=== PATIENT | male | born 1945 | race Caucasian/White ===

== ENCOUNTER → 2019-12-02 13:24 | Outpatient (BNVA) | payer SELFPAY | PROVIDERS: PCP Internal Medicine; Visit Provider Internal Medicine | DX: Z86.718 Personal history of other venous thrombosis and embolism (principal); Z51.81 Encounter for therapeutic drug level monitoring; Z79.01 Long term (current) use of anticoagulants | CPT/HCPCS: 85610 ==

== ENCOUNTER → 2019-12-08 13:46 | Outpatient (BNVA) | payer BC, SELFPAY | PROVIDERS: PCP Internal Medicine; Visit Provider Surgery Vascular Surgery | DX: Z76.89 Persons encountering health services in other specified circumstances (principal) ==

== ENCOUNTER 2019-12-16 12:51 | Outpatient (REF) | payer BC, SELFPAY ==
--- NOTE | 2019-12-16 12:53 | US_ITS ---
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 TECHNIQUE: Color flow triplex imaging and compression Doppler was performed to evaluate both the deep and the superficial systems bilaterally. To evaluate the superficial system, the examination was performed in the upright position. Color-flow Doppler ultrasound and compression ultrasound were utilized. In addition, maneuvers were utilized to demonstrate reflux. FINDINGS: 1. DEEP VENOUS ULTRASOUND OF THE RIGHT LOWER EXTREMITY: Respiratory variation, normal compression and augmented flow are noted in the right common femoral vein as well as the right popliteal vein and there is no evidence of deep venous thrombosis at these locations. Within the common femoral vein there is reflux of approximately 0.5 seconds. There is reflux in the popliteal vein of the 0.8 seconds. There is no evidence of a popliteal fossa cyst or popliteal artery aneurysm. 2. SUPERFICIAL ULTRASOUND WITH DOPPLER OF RIGHT LOWER EXTREMITY: The right great saphenous vein at the saphenofemoral junction measures 11 mm, at the mid thigh 6 mm, fopcy-oxb-wblz 6 mm, ecpne-ehc-qlws 6 mm, at mid calf 6 mm and at the ankle measures 5 mm. There is reflux demonstrated in the below the knee greater saphenous vein of 2.7 seconds and not above or below this region. The right small saphenous vein measures 6 mm and shows no reflux only within the distal calf of approximately 2 seconds. There are varicose veins within the right distal thigh, knee, and mid calf measuring 4 mm in diameter without reflux within them. 3. DEEP VENOUS ULTRASOUND OF THE LEFT LOWER EXTREMITY: Respiratory variation, normal compression and augmented flow are noted in the left common femoral vein as well as the left popliteal vein and there is no evidence of deep venous thrombosis at these locations. There is no evidence of reflux in the deep system in either the common femoral vein or the popliteal vein. . There is no evidence of a popliteal fossa cyst or popliteal artery aneurysm. 4. SUPERFICIAL ULTRASOUND WITH DOPPLER OF LEFT LOWER EXTREMITY: Left great saphenous vein at the saphenofemoral junction measures 8 mm, at the mid thigh 5 mm, csvbh-ksp-upmd 4 mm, hkoen-jav-nqmz 4 mm, at mid calf 3 mm and at the ankle measures 3 mm. The only region of greater saphenous vein reflux is seen above the knee of 0.9 seconds. The left small saphenous vein measures 5 mm and shows reflux only at the mid calf 0.9 seconds There is a left proximal thigh perforating vein measuring 3 mm in diameter without reflux within it. Varicosities without reflux was seen about the left calf and mid thigh. US/US venous duplex LE BI IMPRESSION: No evidence of acute deep venous thrombosis of the right or left lower extremities. No venous insufficiency of the left deep venous system. Reflux within the right deep venous system of approximately half second at the common femoral vein and approximately 2.8 seconds in the popliteal vein. Right greater saphenous vein venous insufficiency only seen at the ebwcp-evi-wktl segment of 2.7 seconds without any evidence of reflux at the saphenofemoral junction. Left greater saphenous vein venous insufficiency only seen about the knee of approximately 0.9 seconds without reflux identified at the saphenofemoral junction.
== END 2019-12-16 12:52 | disposition home or self-care (01) ==
LOC: HO.US 12:51
PROVIDERS: PCP Internal Medicine; Visit Provider Surgery Vascular Surgery
DX: I83.11 Varicose veins of right lower extremity with inflammation (principal)
CPT/HCPCS: 93970

== ENCOUNTER → 2019-12-30 13:20 | Outpatient (BNVA) | payer BC, SELFPAY | PROVIDERS: PCP Internal Medicine; Visit Provider Internal Medicine | DX: Z86.718 Personal history of other venous thrombosis and embolism (principal); Z51.81 Encounter for therapeutic drug level monitoring; Z79.01 Long term (current) use of anticoagulants | CPT/HCPCS: 85610; 99211 ==

== ENCOUNTER → 2020-01-19 13:22 | Outpatient (BNVA) | payer BC, SELFPAY | PROVIDERS: PCP Internal Medicine; Referring Provider Internal Medicine; Visit Provider Internal Medicine | DX: Z76.89 Persons encountering health services in other specified circumstances (principal) ==

== ENCOUNTER → 2020-01-27 13:24 | Outpatient (BNVA) | payer BC, SELFPAY | PROVIDERS: PCP Internal Medicine; Visit Provider Internal Medicine | DX: I48.19 Other persistent atrial fibrillation (principal); Z86.718 Personal history of other venous thrombosis and embolism; Z51.81 Encounter for therapeutic drug level monitoring; Z79.01 Long term (current) use of anticoagulants | CPT/HCPCS: 85610; 99211 ==

== ENCOUNTER → 2020-02-02 13:38 | Outpatient (BNVA) | payer BC, SELFPAY | PROVIDERS: PCP Internal Medicine; Visit Provider Surgery Vascular Surgery | DX: Z76.89 Persons encountering health services in other specified circumstances (principal) ==

== ENCOUNTER → 2020-02-16 13:23 | Outpatient (BNVA) | payer BC, SELFPAY | PROVIDERS: PCP Internal Medicine; Visit Provider Internal Medicine | DX: Z86.718 Personal history of other venous thrombosis and embolism (principal); Z51.81 Encounter for therapeutic drug level monitoring; Z79.01 Long term (current) use of anticoagulants | CPT/HCPCS: 85610; 99211 ==

== ENCOUNTER → 2020-03-10 13:17 | Outpatient (BNVA) | payer BC, SELFPAY | PROVIDERS: PCP Internal Medicine; Visit Provider Internal Medicine | DX: I48.19 Other persistent atrial fibrillation (principal); Z86.718 Personal history of other venous thrombosis and embolism; Z51.81 Encounter for therapeutic drug level monitoring; Z79.01 Long term (current) use of anticoagulants | CPT/HCPCS: 85610; 99211 ==

== ENCOUNTER → 2020-03-24 13:19 | Outpatient (BNVA) | payer BC, SELFPAY | PROVIDERS: PCP Internal Medicine; Visit Provider Internal Medicine | DX: I48.19 Other persistent atrial fibrillation (principal); Z86.718 Personal history of other venous thrombosis and embolism; Z51.81 Encounter for therapeutic drug level monitoring; Z79.01 Long term (current) use of anticoagulants | CPT/HCPCS: 85610; 99211 ==

== ENCOUNTER → 2020-04-07 13:16 | Outpatient (BNVA) | payer BC, SELFPAY | PROVIDERS: PCP Internal Medicine; Visit Provider Internal Medicine | DX: I48.19 Other persistent atrial fibrillation (principal); Z86.73 Personal history of transient ischemic attack (TIA), and cerebral infarction without residual deficits; Z51.81 Encounter for therapeutic drug level monitoring; Z79.01 Long term (current) use of anticoagulants | CPT/HCPCS: 85610; 99211 ==

== ENCOUNTER → 2020-04-15 13:44 | Outpatient (REF) | payer BC, SELFPAY ==
--- NOTE | 2020-04-15 14:00 | CA_ITS ---
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 The visually estimated ejection fraction is between 60-65%. - No obvious valvular pathology seen on this study. - There is mild dilatation of the ascending aorta measuring 3.80 cm and mild dilatation of the aortic arch measuring 3.70 cm. Small plaque is seen in the sino tubular ridge. Findings Left Ventricle Normal left ventricular cavity size. There is normal left ventricular wall thickness. The left ventricular systolic function is normal. The visually estimated ejection fraction is between 60-65%. There is no evidence of regional wall motion abnormalities. Diastolic function is normal for age. Right Ventricle Normal right ventricular cavity size and systolic function. Atria Both atria are normal in size. Aortic Valve There is a normal trileaflet aortic valve. There is mild calcification of the aortic valve. There is no aortic valve stenosis. There is no aortic valve regurgitation. Mitral Valve The mitral valve appears normal. There is trace mitral valve regurgitation. There is no mitral valve stenosis. Pulmonic Valve The pulmonic valve was not well visualized. Tricuspid Valve There is trace tricuspid valve regurgitation. The pulmonary artery systolic pressure is normal. Great Vessels There is mild dilatation of the ascending aorta measuring 3.80 cm and mild dilatation of the aortic arch measuring 3.70 cm. Small plaque is seen in the sino tubular ridge. Venous The inferior vena cava was not well visualized. Pericardium/Pleural There is no evidence of pericardial effusion. Prior Study Comparison No significant change compared to prior study dated: 04/08/2019. Recommendations, Care & Conclusions No obvious valvular pathology seen on this study. Measurements M-Mode Liner Measurements Normals - Women/Men AOV Cusps: 2.40 1.5-2.6 cm/m2 2D Linear Measurements IVSd: 0.98 0.6-0.9/0.6-1.0 cm LVIDd: 4.36 3.9-5.3/4.2-5.9 cm LVIDd Index: 1.90 2.4-3.2/2.2-3.1 cm/m2 LVIDs: 2.33 2.0-3.6 cm LVPWd: 0.96 0.7-1.1 cm Ao Root: 3.80 2.1-3.5 cm LA Diam: 3.90 2.7-3.8/3.0-4.0 cm LAIDs Index: 1.70 1.5-2.3 cm/m2 LV Mass: 173.98 67-162/88-224 g LV Mass Index: 75.97 43-95/49-115 g/m2 LVOT Diam: 2.40 3.0+(-)1.3 cm 2D Systolic Function EF 4C: 68.90 >55% EF 2C: 56.90 >55% EF BiP: 61.90 >55% Mitral Valve MV Pk E: 0.69 MV PK A: 0.78 MV Decel Time: 155.00 E/A: 0.90 E'Lateral: 10.60 E'Medial: 8.38 E/E' Med: 8.30 E/E' Lat: 6.50 PHT: 45.00 MVA PHT: 4.89 Decel Glenn: 4.47 Aortic Valve AoV Pk Hernandez: 1.34 AoV Pk Grad: 7.00 LVOT LVOT Pk Hernandez: 0.80 LVOT Mn Hernandez: 0.60 LVOT VTI: 0.17 LVOT Pk Grad: 3.00 LVOT Mn Grad: 2.00 LVOT Diam: 2.40 LVOT Area: 4.52 Diastolic Function MV Pk E: 0.69 MV Pk A: 0.78 E/A: 0.90 E'Medial: 8.38 E/E' Med: 8.30 E' Laterial: 10.60 E/E' Lat: 6.50 Tricuspid Valve TR Pk Hernandez: 2.57 TR Pk Grad: 26.00 RA Press: 8.00 RVSP: 34.00 Great Vessels Aorta Ao Root-2D: 3.80 2.0-3.7 cm Ao Asc: 3.80 2.1-3.4 cm Ao Arch: 3.70 Pulmonary Valve PV Pk Hernandez: 1.03 Peak PV Grad: 4.00 Updated in Other Vendor System with Status of Final Art Narvaez MD electronically signed on 04/17/2020 9:23:07 AM with status of Final
== END ==
LOC: HO.CARD 13:44
PROVIDERS: Visit Provider Internal Medicine Cardiovascular Disease
DX: I48.0 Paroxysmal atrial fibrillation (principal); I45.10 Unspecified right bundle-branch block; I36.1 Nonrheumatic tricuspid (valve) insufficiency; R06.02 Shortness of breath
CPT/HCPCS: 93306

== ENCOUNTER → 2020-04-21 12:55 | Outpatient (BNVA) | payer BC, SELFPAY | PROVIDERS: PCP Internal Medicine; Visit Provider Internal Medicine Cardiovascular Disease | DX: I48.0 Paroxysmal atrial fibrillation (principal); R06.02 Shortness of breath; Z79.899 Other long term (current) drug therapy | CPT/HCPCS: 93005 ==

== ENCOUNTER → 2020-05-05 13:04 | Outpatient (BNVA) | payer BC, SELFPAY | PROVIDERS: PCP Internal Medicine; Visit Provider Internal Medicine | DX: I48.19 Other persistent atrial fibrillation (principal); Z86.718 Personal history of other venous thrombosis and embolism; Z51.81 Encounter for therapeutic drug level monitoring; Z79.01 Long term (current) use of anticoagulants | CPT/HCPCS: 85610; 99211 ==

== ENCOUNTER → 2020-05-26 13:15 | Outpatient (BNVA) | payer BC, SELFPAY | PROVIDERS: PCP Internal Medicine; Visit Provider Internal Medicine ==

== ENCOUNTER → 2020-06-02 13:02 | Outpatient (BNVA) | payer BC, SELFPAY | PROVIDERS: PCP Internal Medicine; Visit Provider Internal Medicine | DX: I48.19 Other persistent atrial fibrillation (principal); Z86.718 Personal history of other venous thrombosis and embolism; Z79.01 Long term (current) use of anticoagulants; Z51.81 Encounter for therapeutic drug level monitoring | CPT/HCPCS: 85610; 99211 ==

== ENCOUNTER → 2020-06-16 13:02 | Outpatient (BNVA) | payer BC, SELFPAY | PROVIDERS: PCP Internal Medicine; Visit Provider Internal Medicine | DX: I48.19 Other persistent atrial fibrillation (principal); I82.401 Acute embolism and thrombosis of unspecified deep veins of right lower extremity; Z79.01 Long term (current) use of anticoagulants; Z51.81 Encounter for therapeutic drug level monitoring | CPT/HCPCS: 85610; 99211 ==

== ENCOUNTER → 2020-07-07 13:02 | Outpatient (BNVA) | payer BC, SELFPAY | PROVIDERS: PCP Internal Medicine; Visit Provider Internal Medicine | DX: I48.19 Other persistent atrial fibrillation (principal); Z86.718 Personal history of other venous thrombosis and embolism; Z51.81 Encounter for therapeutic drug level monitoring; Z79.01 Long term (current) use of anticoagulants | CPT/HCPCS: 85610; 99211 ==

== ENCOUNTER → 2020-08-04 13:18 | Outpatient (BNVA) | payer BC, SELFPAY | PROVIDERS: PCP Internal Medicine; Visit Provider Internal Medicine | DX: I48.19 Other persistent atrial fibrillation (principal); Z86.718 Personal history of other venous thrombosis and embolism; Z51.81 Encounter for therapeutic drug level monitoring; Z79.01 Long term (current) use of anticoagulants | CPT/HCPCS: 85610; 99211 ==

== ENCOUNTER → 2020-09-01 13:23 | Outpatient (BNVA) | payer BC, SELFPAY | PROVIDERS: PCP Internal Medicine; Visit Provider Internal Medicine | DX: I48.0 Paroxysmal atrial fibrillation (principal); Z86.718 Personal history of other venous thrombosis and embolism; Z51.81 Encounter for therapeutic drug level monitoring; Z79.01 Long term (current) use of anticoagulants | CPT/HCPCS: 85610; 99211 ==

== ENCOUNTER → 2020-09-07 13:31 | Outpatient (BNVA) | payer BC, SELFPAY | PROVIDERS: PCP Internal Medicine; Visit Provider Internal Medicine | DX: I48.19 Other persistent atrial fibrillation (principal); Z86.718 Personal history of other venous thrombosis and embolism; Z51.81 Encounter for therapeutic drug level monitoring; Z79.01 Long term (current) use of anticoagulants | CPT/HCPCS: 85610; 99211 ==

== ENCOUNTER → 2020-09-29 13:21 | Outpatient (BNVA) | payer BC, SELFPAY | PROVIDERS: PCP Internal Medicine; Visit Provider Internal Medicine | DX: I48.0 Paroxysmal atrial fibrillation (principal); Z86.718 Personal history of other venous thrombosis and embolism; Z51.81 Encounter for therapeutic drug level monitoring; Z79.01 Long term (current) use of anticoagulants | CPT/HCPCS: 85610; 99211 ==

== ENCOUNTER → 2020-10-13 13:18 | Outpatient (BNVA) | payer BC, SELFPAY | PROVIDERS: PCP Internal Medicine; Visit Provider Internal Medicine | DX: I48.19 Other persistent atrial fibrillation (principal); Z86.718 Personal history of other venous thrombosis and embolism; Z51.81 Encounter for therapeutic drug level monitoring; Z79.01 Long term (current) use of anticoagulants | CPT/HCPCS: 85610; 99211 ==

== ENCOUNTER → 2020-10-27 11:06 | Outpatient (BNVA) | payer BC, SELFPAY | PROVIDERS: PCP Internal Medicine; Visit Provider Internal Medicine Cardiovascular Disease | DX: I48.0 Paroxysmal atrial fibrillation (principal); R06.02 Shortness of breath; I45.10 Unspecified right bundle-branch block; G47.33 Obstructive sleep apnea (adult) (pediatric); J44.9 Chronic obstructive pulmonary disease, unspecified; E66.9 Obesity, unspecified; Z68.35 Body mass index [BMI] 35.0-35.9, adult; Z99.89 Dependence on other enabling machines and devices; Z79.02 Long term (current) use of antithrombotics/antiplatelets; Z79.899 Other long term (current) drug therapy | CPT/HCPCS: 93005 ==

== ENCOUNTER → 2020-11-10 13:17 | Outpatient (BNVA) | payer BC, SELFPAY | PROVIDERS: PCP Internal Medicine; Visit Provider Internal Medicine | DX: I48.19 Other persistent atrial fibrillation (principal); Z86.718 Personal history of other venous thrombosis and embolism; Z51.81 Encounter for therapeutic drug level monitoring; Z79.01 Long term (current) use of anticoagulants | CPT/HCPCS: 85610; 99211 ==

== ENCOUNTER → 2020-11-22 13:45 | Outpatient (BNVA) | payer BC, SELFPAY | PROVIDERS: PCP Internal Medicine; Visit Provider Internal Medicine ==

== ENCOUNTER → 2020-12-08 13:04 | Outpatient (BNVA) | payer BC, SELFPAY | PROVIDERS: PCP Internal Medicine; Visit Provider Internal Medicine | DX: I48.19 Other persistent atrial fibrillation (principal); Z86.718 Personal history of other venous thrombosis and embolism; Z51.81 Encounter for therapeutic drug level monitoring; Z79.01 Long term (current) use of anticoagulants | CPT/HCPCS: 85610; 99211 ==

== ENCOUNTER → 2020-12-15 13:57 | Outpatient (BNVA) | payer BC, SELFPAY | PROVIDERS: PCP Internal Medicine; Visit Provider Internal Medicine | DX: I48.19 Other persistent atrial fibrillation (principal); Z86.718 Personal history of other venous thrombosis and embolism; Z51.81 Encounter for therapeutic drug level monitoring; Z79.01 Long term (current) use of anticoagulants | CPT/HCPCS: 85610; 99211 ==

== ENCOUNTER → 2020-12-29 13:31 | Outpatient (BNVA) | payer BC, SELFPAY | PROVIDERS: PCP Internal Medicine; Visit Provider Internal Medicine | DX: I48.19 Other persistent atrial fibrillation (principal); Z86.718 Personal history of other venous thrombosis and embolism; Z51.81 Encounter for therapeutic drug level monitoring; Z79.01 Long term (current) use of anticoagulants | CPT/HCPCS: 85610; 99211 ==

== ENCOUNTER → 2021-01-12 13:31 | Outpatient (BNVA) | payer BC, SELFPAY | PROVIDERS: PCP Internal Medicine; Visit Provider Internal Medicine | DX: I48.19 Other persistent atrial fibrillation (principal); Z86.718 Personal history of other venous thrombosis and embolism; Z51.81 Encounter for therapeutic drug level monitoring; Z79.01 Long term (current) use of anticoagulants | CPT/HCPCS: 85610; 99211 ==

== ENCOUNTER → 2021-01-26 13:46 | Outpatient (BNVA) | payer BC, SELFPAY | PROVIDERS: PCP Internal Medicine; Visit Provider Internal Medicine | DX: I48.19 Other persistent atrial fibrillation (principal); Z86.718 Personal history of other venous thrombosis and embolism; Z51.81 Encounter for therapeutic drug level monitoring; Z79.01 Long term (current) use of anticoagulants | CPT/HCPCS: 85610; 99211 ==

== ENCOUNTER → 2021-02-16 13:16 | Outpatient (BNVA) | payer BC, SELFPAY | PROVIDERS: PCP Internal Medicine; Visit Provider Internal Medicine | DX: I48.19 Other persistent atrial fibrillation (principal); Z86.718 Personal history of other venous thrombosis and embolism; Z51.81 Encounter for therapeutic drug level monitoring; Z79.01 Long term (current) use of anticoagulants | CPT/HCPCS: 85610; 99211 ==

== ENCOUNTER → 2021-02-24 15:49 | Outpatient (BNVA) | payer BC, SELFPAY | PROVIDERS: PCP Internal Medicine; Visit Provider Internal Medicine | DX: I48.19 Other persistent atrial fibrillation (principal); Z86.718 Personal history of other venous thrombosis and embolism; Z51.81 Encounter for therapeutic drug level monitoring; Z79.01 Long term (current) use of anticoagulants | CPT/HCPCS: Q3014 ==

== ENCOUNTER → 2021-03-03 13:24 | Outpatient (BNVA) | payer BC, SELFPAY | PROVIDERS: PCP Internal Medicine; Visit Provider Internal Medicine | DX: I48.19 Other persistent atrial fibrillation (principal); Z86.718 Personal history of other venous thrombosis and embolism; Z51.81 Encounter for therapeutic drug level monitoring; Z79.01 Long term (current) use of anticoagulants | CPT/HCPCS: 85610; 99211 ==

== ENCOUNTER → 2021-03-08 13:35 | Outpatient (BNVA) | payer BC, SELFPAY | PROVIDERS: PCP Internal Medicine; Visit Provider Internal Medicine | DX: I48.19 Other persistent atrial fibrillation (principal); Z86.718 Personal history of other venous thrombosis and embolism; Z51.81 Encounter for therapeutic drug level monitoring; Z79.01 Long term (current) use of anticoagulants | CPT/HCPCS: 85610 ==

== ENCOUNTER → 2021-03-14 13:27 | Outpatient (BNVA) | payer BC, SELFPAY | PROVIDERS: PCP Internal Medicine; Visit Provider Internal Medicine | DX: I48.19 Other persistent atrial fibrillation (principal); Z86.718 Personal history of other venous thrombosis and embolism; Z51.81 Encounter for therapeutic drug level monitoring; Z79.01 Long term (current) use of anticoagulants | CPT/HCPCS: 85610; 99211 ==

== ENCOUNTER → 2021-03-28 13:07 | Outpatient (BNVA) | payer BC, SELFPAY | PROVIDERS: PCP Internal Medicine; Visit Provider Internal Medicine | DX: I48.19 Other persistent atrial fibrillation (principal); Z86.718 Personal history of other venous thrombosis and embolism; Z51.81 Encounter for therapeutic drug level monitoring; Z79.01 Long term (current) use of anticoagulants | CPT/HCPCS: 85610; 99211 ==

== ENCOUNTER → 2021-04-11 13:20 | Outpatient (BNVA) | payer BC, SELFPAY | PROVIDERS: PCP Internal Medicine; Visit Provider Internal Medicine | DX: I48.19 Other persistent atrial fibrillation (principal); Z86.718 Personal history of other venous thrombosis and embolism; Z51.81 Encounter for therapeutic drug level monitoring; Z79.01 Long term (current) use of anticoagulants | CPT/HCPCS: 85610; 99211 ==

== ENCOUNTER → 2021-04-25 13:12 | Outpatient (BNVA) | payer BC, SELFPAY | PROVIDERS: PCP Internal Medicine; Visit Provider Internal Medicine | DX: I48.19 Other persistent atrial fibrillation (principal); Z86.718 Personal history of other venous thrombosis and embolism; Z51.81 Encounter for therapeutic drug level monitoring; Z79.01 Long term (current) use of anticoagulants | CPT/HCPCS: 85610; 99211 ==

== ENCOUNTER → 2021-05-18 13:03 | Outpatient (BNVA) | payer BC, SELFPAY | PROVIDERS: PCP Internal Medicine; Visit Provider Internal Medicine | DX: I48.19 Other persistent atrial fibrillation (principal); Z86.718 Personal history of other venous thrombosis and embolism; Z51.81 Encounter for therapeutic drug level monitoring; Z79.01 Long term (current) use of anticoagulants | CPT/HCPCS: 85610; 99211 ==

== ENCOUNTER → 2021-05-19 09:15 | Outpatient (REF) | payer BC, SELFPAY ==
--- NOTE | 2021-05-19 09:19 | CA_ITS ---
Transthoracic Echocardiogram Patient (Last, First, Middle): Jay Gonzales, Gender: Male Date of : 1945 Age: 75 Procedure Date: 05/19/2021 Procedure Type: Transthoracic Echocardiogram Location: OP Height: 175.26 cm Weight: 117.94 kg BSA: 2.31 m2 Heart Rate: bpm BP: 112 / 68 mmHg Senior Product Development Scientist: Referring MD: Justin Nava MD Coagulant Dipper: Justin Nava MD Symptoms: I48.0 - Paroxysmal atrial fibrillation Study Quality: Fair ECG Rhythm: Sinus Conclusions: - 1. Technically limited study 2. Normal LV systolic function with impaired relaxation filling pattern 3. Moderately dilated right-sided chambers with preserved RV systolic function 4. Normal cardiac valvular Doppler 5. Normal RV systolic pressure 6. Mildly dilated ascending aorta Findings Left Ventricle Normal left ventricular size, thickness, and systolic function. The visually estimated ejection fraction is between 55-60%. Regional wall motion abnormalities can not be excluded due to suboptimal endocardial definition. Spectral Doppler is indicative of a normal filling pattern. Right Ventricle Moderately increased right ventricular cavity size. There is normal right ventricular systolic function. Atria The left atrium is mildly dilated. Interatrial shunt cannot be excluded. The right atrium is moderately dilated. Aortic Valve The aortic valve was not well visualized. There is no aortic valve stenosis. There is no aortic valve regurgitation. Mitral Valve Likely normal mitral valve structure and function. There is trace mitral valve regurgitation. There is no mitral valve stenosis. Pulmonic Valve The pulmonic valve was not well visualized. Tricuspid Valve The tricuspid valve was not well visualized. There is mild tricuspid valve regurgitation. The right ventricular systolic pressure is normal. The right ventricular systolic pressure is 26 mmHg. There is no evidence of pulmonary hypertension. Great Vessels The pulmonary artery was not well visualized. There is mild dilatation of the ascending aorta measuring 4.10 cm. Venous The inferior vena cava is normal in size. Pericardium/Pleural The pericardium was not well visualized. Prior Study Comparison No significant change compared to prior study. Measurements 2D Linear Measurements IVSd: 1.00 0.6-0.9/0.6-1.0 cm LVIDd: 5.25 3.9-5.3/4.2-5.9 cm LVIDd Index: 2.27 2.4-3.2/2.2-3.1 cm/m2 LVIDs: 3.65 2.0-3.6 cm LVPWd: 1.03 0.7-1.1 cm LA Diam: 3.50 2.7-3.8/3.0-4.0 cm LAIDs Index: 1.52 1.5-2.3 cm/m2 LV Mass: 250.77 67-162/88-224 g LV Mass Index: 108.56 43-95/49-115 g/m2 LVOT Diam: 2.40 3.0+(-)1.3 cm Mitral Valve MV Pk E: 0.64 MV PK A: 0.59 MV Decel Time: 154.00 E/A: 1.10 PHT: 45.00 MVA PHT: 4.89 Decel [place]: 4.14 Aortic Valve AoV Pk Hernandez: 1.19 AoV Mn Hernandez: 0.93 AoV VTI: 0.26 AoV Pk Grad: 6.00 Aov Mn Grad: 4.00 AGUSTIN Cont.VTI: 3.81 LVOT LVOT Pk Hernandez: 1.04 LVOT Mn Hernandez: 0.70 LVOT VTI: 0.22 LVOT Pk Grad: 4.00 LVOT Mn Grad: 2.00 LVOT Diam: 2.40 LVOT Area: 4.52 Diastolic Function MV Pk E: 0.64 MV Pk A: 0.59 E/A: 1.10 Right Ventricle TAPSE (mm): 18.00 TVS' Hernandez: 13.00 Tricuspid Valve TR Pk Hernandez: 2.38 TR Pk Grad: 23.00 RA Press: 3.00 RVSP: 26.00 Great Vessels Aorta Ao Asc: 4.10 2.1-3.4 cm Updated in Other Vendor System with Status of Final Justin Nava MD electronically signed on 05/20/2021 1:10:28 PM with status of Final
== END ==
LOC: HO.CARD 09:15
PROVIDERS: Visit Provider Internal Medicine Cardiovascular Disease
DX: I48.0 Paroxysmal atrial fibrillation (principal)
CPT/HCPCS: 93306

== ENCOUNTER → 2021-05-23 13:27 | Outpatient (BNVA) | payer BC, SELFPAY | PROVIDERS: PCP Internal Medicine; Visit Provider Internal Medicine | DX: Z13.89 Encounter for screening for other disorder (principal) ==

== ENCOUNTER → 2021-06-12 16:48 | Outpatient (BNVA) | payer BC, SELFPAY | PROVIDERS: PCP Internal Medicine; Visit Provider Internal Medicine | DX: I48.19 Other persistent atrial fibrillation (principal); I82.401 Acute embolism and thrombosis of unspecified deep veins of right lower extremity; Z79.01 Long term (current) use of anticoagulants; Z51.81 Encounter for therapeutic drug level monitoring | CPT/HCPCS: Q3014 ==

== ENCOUNTER 2021-06-15 08:32 | Inpatient (IN) | payer MEDICARE, BC, SELFPAY ==
[2021-06-15] VITALS (10 sets, daily range): BP systolic 131–149; BP diastolic 61–87; PULSE 78–102; RESP 13–25; TEMP 36.7–37.1; O2SAT 89–97; BMI 36.9
--- NOTE | ~2021-06-15 | XR_ITS ---
EXAMINATION: XR CHEST CLINICAL INFORMATION: Dyspnea COMPARISON: 05/01/2018 TECHNIQUE: Frontal view of the chest was obtained. FINDINGS: Median sternotomy wires appear intact. Cardiac leads overlie the chest. Elevated left hemidiaphragm is chronic. No consolidation, edema, or effusion. No pneumothorax. The cardiomediastinal silhouette is unchanged. XR/XR chest 1V IMPRESSION: No acute pulmonary finding. Chronic elevation of the left hemidiaphragm.
--- NOTE | 2021-06-15 08:40 | ECG_ITS ---
Test Reason : DYSPNEA Blood Pressure : / mmHG Vent. Rate : 084 BPM Atrial Rate : 084 BPM P-R Int : 158 ms QRS Dur : 148 ms QT Int : 402 ms P-R-T Axes : 109 001 016 degrees QTc Int : 475 ms Normal sinus rhythm Right bundle branch block Abnormal ECG When compared with ECG of 14-MAR-2018 08:47, No significant changes seen Referred By: Lo Aburto Electronically Signed By:Real Fang
--- NOTE | 2021-06-15 08:50 | ED_ITS ---
HPI - SOB/Dyspnea General Chief Complaint: Dyspnea Stated Complaint: DIFF BREATHING Time Seen by Provider: 06/15/21 08:40 Source: patient Mode of arrival: ambulatory Limitations: no limitations History of Present Illness HPI Narrative: 06/08 dx with bronchitis started on cefpodoxime and prednisone - not helping feel s like he is getting worse MD elicited complaint: shortness of breath and cough Pertinent past history: COPD and pneumonia Onset (ago): day(s) (7) Context: recent illness Timing: progressively worsening Severity: moderate Exacerbating factors: exertion and coughing Relieving factors: rest Known history of: COPD and recurrent pneumonia Associated symptoms: fever, cough, wheezing and sputum production Treatment prior to arrival: bronchodilator and other (steroids, antibiotics) Related Data Home Medications Medication Instructions Recorded Confirmed albuterol sulfate 90 mcg/actuation 2 puff INHALATION QID 12/08/19 05/18/21 aerosol inhaler atorvastatin 20 mg tablet 20 mg PO DAILY 12/08/19 05/18/21 diltiazem HCl 120 mg 120 mg PO DAILY 12/08/19 05/18/21 capsule,extended release 24 hr docusate sodium 100 mg capsule 100 mg PO BID 12/08/19 05/18/21 sennosides 8.6 mg capsule (senna) 8.6 mg PO BEDTIME 12/08/19 05/18/21 furosemide 40 mg tablet 40 mg PO BID tab 02/02/20 05/18/21 flecainide 50 mg tablet 50 mg PO Q12H tab 10/27/20 05/18/21 potassium chloride 10 mEq 10 meq PO DAILY 12/15/20 05/18/21 tablet,extended release Previous Rx's Medication Instructions Recorded warfarin 5 mg tablet 5 mg PO DAILY #90 tab 12/02/19 albuterol sulfate 2.5 mg (3 mL) INHALATION Q4-8H PRN 06/12/21 #180 ml fluticasone furoate 200 1 inh INHALATION DAILY #60 ea 06/15/21 mcg-vilanterol 25 mcg/dose inhalation powder (Breo Ellipta) Allergies Allergy/AdvReac Type Severity Reaction Status Date / Time amoxicillin [From Augmentin] AdvReac Intermediate Nausea and Verified 05/23/21 13:58 Vomiting, dizziness clavulanic acid AdvReac Intermediate Nausea and Verified 05/23/21 13:58 [From Augmentin] Vomiting, dizziness Review of Systems Review of Systems: Constitutional : No Fever, pos Chills ENT/Mouth : No sore throat, No Rhinorrhea, No Swallowing Difficulty Eyes: No Eye Pain, No Swelling, No Redness Cardiovascular : No Chest Pain, positive SOB, No Orthopnea, no Edema Respiratory : pos Cough, pos Sputum, pos Wheezing, positive dyspnea Gastrointestinal : No Nausea, No Vomiting, No Diarrhea, No abdominal Pain, No Hematochezia, No Melena Genitourinary : No Dysuria, No Urinary Frequency, No Hematuria Musculoskeletal : No joint pain, No Myalgias Skin : No Skin Lesions, No rash Neuro : No Weakness, No Numbness, No Dizziness, No Headache Psych : No Anxiety/Panic, No Depression Heme/Lymph: No Bruising, No Lymphadenopathy Endocrine : No Polyuria, No Polydipsia All other systems reviewed and are negative [facility] Past Medical History Attestation statement: The following information was validated with the patient. Medical History COPD (chronic obstructive pulmonary disease) Obesity (BMI 35.0-39.9 without comorbidity) DEREK on CPAP Paroxysmal atrial fibrillation Surgical History History of appendectomy Family History Family History Father No problems noted. Mother No problems noted. Sister No problems noted. Sister No problems noted. Son No problems noted. Daughter No problems noted. Social History Social History (Updated 06/15/21 @ 08:51 by Lo Aburto DO) Patient Tobacco Use Status: Former Tobacco user Physical Exam Vital Signs: Vital Signs: Last Vital Signs Temp 98.8 F 06/15/21 08:40 Pulse 78 06/15/21 09:39 Resp 20 06/15/21 09:39 BP 136/76 06/15/21 09:39 Pulse Ox 95 06/15/21 10:10 BMI result Body Mass Index 36.9 Appearance: Alert. Oriented X3. Mild acute distress. Eyes: Pupils equal, round and reactive to light. ENT: Pharynx normal. Neck: Normal inspection. Neck supple. CVS: Normal heart rate and rhythm. Pulses normal. Respiratory: Mild respiratory distress tachypnea and retractions. Breath sounds coarse and diminished, very fine rales in bases, wheezes noted in upper zones bilaterally Abdomen: Soft and nontender. Skin: Skin warm and dry. Normal skin color. Normal skin turgor. Extremities: RLE chronic 1- 2+ pitting edema, hyperpigmented skin changes in RLE Neuro: Oriented X 3. No motor deficit. No sensory deficit. 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 At this time will need labs, IV steroids, CXR, cultures, lactic acid, flu and COVID swab. 5mg albuterol neb empiric IV antibiotics given outpatient failure sputum production. Dispo per results and clinical improvement Lab Data Result diagrams: 06/15/21 09:09 06/15/21 08:50 Labs: Lab Results 06/15/21 06/15/21 06/15/21 Range/Units 08:40 08:40 08:50 WBC (4.8-10.8) X10*3/uL RBC (4.60-5.80) X10*6/uL Hgb (14.0-18.0) g/dl Hct (42.0-52.0) % MCV (80.0-98.0) fL MCH (27.0-33.0) pg MCHC (31.0-36.0) g/dl RDW (11.0-16.0) % Plt Count (160-400) X10*3/uL MPV (9.4-12.4) fL Immature Gran % (Auto) (0.0-0.4) % Neut % (Auto) (45-73) % Lymph % (Auto) (20-40) % [place] % (Auto) (2-11) % Eos % (Auto) (0-4) % Baso % (Auto) (0-2) % Lymph # (Auto) (1.2-4.9) X10*3/uL [place] # (Auto) (0.1-1.2) X10*3/uL Eos # (Auto) (0.0-0.4) X10*3/uL Baso # (Auto) (0.0-0.2) X10*3/uL Abs Immat Gran (auto) (0.00-0.03) X10*3/uL Absolute Neuts (auto) (2.0-8.3) x10*3/uL Absolute Nucleated RBC (0.0-0.012) X10*3/uL Nucleated RBC % (auto) (0.0-0.2) /100WBC Smear Tech's Comments PT (9.9-13.0) SEC INR (0.9-1.1) VBG pH (7.32-7.43) VBG pCO2 mmHg VBG pO2 mmHg VBG HCO3 (22-26) mmol/L VBG O2 Saturation % VBG Base Excess mmol/L Lactic Acid (0.5-2.0) mmol/L Troponin I High Sens (<3.5-35.0) ng/L B-Natriuretic Peptide 17 (<100) pg/mL COVID-19 (ANGI) Negative (Negative) COVID-19 Clin Com See Note Influenza Type A (DONITA) Negative (Negative) Influenza Type B (DONITA) Negative (Negative) Influenza A & B Note See Note 06/15/21 06/15/21 06/15/21 Range/Units 08:50 08:50 08:57 WBC (4.8-10.8) X10*3/uL RBC (4.60-5.80) X10*6/uL Hgb (14.0-18.0) g/dl Hct (42.0-52.0) % MCV (80.0-98.0) fL MCH (27.0-33.0) pg MCHC (31.0-36.0) g/dl RDW (11.0-16.0) % Plt Count (160-400) X10*3/uL MPV (9.4-12.4) fL Immature Gran % (Auto) (0.0-0.4) % Neut % (Auto) (45-73) % Lymph % (Auto) (20-40) % [place] % (Auto) (2-11) % Eos % (Auto) (0-4) % Baso % (Auto) (0-2) % Lymph # (Auto) (1.2-4.9) X10*3/uL [place] # (Auto) (0.1-1.2) X10*3/uL Eos # (Auto) (0.0-0.4) X10*3/uL Baso # (Auto) (0.0-0.2) X10*3/uL Abs Immat Gran (auto) (0.00-0.03) X10*3/uL Absolute Neuts (auto) (2.0-8.3) x10*3/uL Absolute Nucleated RBC (0.0-0.012) X10*3/uL Nucleated RBC % (auto) (0.0-0.2) /100WBC Smear Tech's Comments PT (9.9-13.0) SEC INR (0.9-1.1) VBG pH 7.51 H (7.32-7.43) VBG pCO2 42 mmHg VBG pO2 191 mmHg VBG HCO3 34 H (22-26) mmol/L VBG O2 Saturation 99.0 % VBG Base Excess 10.6 mmol/L Lactic Acid 1.4 (0.5-2.0) mmol/L Troponin I High Sens < 3.5 (<3.5-35.0) ng/L B-Natriuretic Peptide (<100) pg/mL COVID-19 (ANGI) (Negative) COVID-19 Clin Com Influenza Type A (DONITA) (Negative) Influenza Type B (DONITA) (Negative) Influenza A & B Note 06/15/21 06/15/21 Range/Units 09:09 09:58 WBC 11.9 H (4.8-10.8) X10*3/uL RBC 4.77 (4.60-5.80) X10*6/uL Hgb 14.1 (14.0-18.0) g/dl Hct 44.4 (42.0-52.0) % MCV 93.1 (80.0-98.0) fL MCH 29.6 (27.0-33.0) pg MCHC 31.8 (31.0-36.0) g/dl RDW 15.1 (11.0-16.0) % Plt Count 190 (160-400) X10*3/uL MPV 10.4 (9.4-12.4) fL Immature Gran % (Auto) 1.4 H (0.0-0.4) % Neut % (Auto) 55.8 (45-73) % Lymph % (Auto) 25.4 (20-40) % [place] % (Auto) 15.9 H (2-11) % Eos % (Auto) 1.2 (0-4) % Baso % (Auto) 0.3 (0-2) % Lymph # (Auto) 3.0 (1.2-4.9) X10*3/uL [place] # (Auto) 1.9 H (0.1-1.2) X10*3/uL Eos # (Auto) 0.1 (0.0-0.4) X10*3/uL Baso # (Auto) 0.0 (0.0-0.2) X10*3/uL Abs Immat Gran (auto) 0.17 H (0.00-0.03) X10*3/uL Absolute Neuts (auto) 6.6 (2.0-8.3) x10*3/uL Absolute Nucleated RBC 0.000 (0.0-0.012) X10*3/uL Nucleated RBC % (auto) 0.0 (0.0-0.2) /100WBC Smear Tech's Comments VERIFIED PT 33.4 H (9.9-13.0) SEC INR 2.9 H (0.9-1.1) VBG pH (7.32-7.43) VBG pCO2 mmHg VBG pO2 mmHg VBG HCO3 (22-26) mmol/L VBG O2 Saturation % VBG Base Excess mmol/L Lactic Acid (0.5-2.0) mmol/L Troponin I High Sens (<3.5-35.0) ng/L B-Natriuretic Peptide (<100) pg/mL COVID-19 (ANGI) (Negative) COVID-19 Clin Com Influenza Type A (DONITA) (Negative) Influenza Type B (DONITA) (Negative) Influenza A & B Note ECG Data Attestation: I personally reviewed and interpreted this ECG as follows: ECG interpretation date: 06/15/21 ECG interpretation time: 09:00 Interpretation: Rate: 84 Rhythm: NSR [place]: normal Normal P waves. Normal YOLIS. RBBB ST T wave : normal no ANIKET qTC: normal prior studies: no acute ischemia unchanged from prior The study has been interpreted contemporaneously by me. Discharge Plan Discharge Clinical Impression: COPD (chronic obstructive pulmonary disease), Hypoxia Patient Disposition: Admitted As Inpatient Prescriptions: No Action albuterol sulfate 2.5 mg /3 mL (0.083 %) solution for nebulization 2.5 mg inhalation Q4-8H PRN (Reason: shortness of breath or wheezing) Qty: 180 0RF Breo Ellipta 200-25 mcg/dose blister with device 1 inh inhalation DAILY Qty: 60 3RF warfarin 5 mg tablet 5 mg PO DAILY Qty: 90 0RF Protocol: Dose Management Condition: Saturday (Week One) Dose/Route: 5 mg Instruction: 1 x 5 mg tablet Condition: Saturday Dose/Route: 5 mg Instruction: 1 x 5 mg tablet Condition: Saturday Dose/Route: 2.5 mg Instruction: 0.5 x 5 mg tablets Condition: Saturday Dose/Route: 5 mg Instruction: 1 x 5 mg tablet Condition: Dose/Route: 7.5 mg Instruction: 1.5 x 5 mg tablets Condition: Saturday Dose/Route: 5 mg Instruction: 1 x 5 mg tablet Condition: Saturday Dose/Route: 7.5 mg Instruction: 1.5 x 5 mg tablets Condition: Saturday (Week Two) Dose/Route: 5 mg Instruction: 1 x 5 mg tablet Condition: Saturday Dose/Route: 5 mg Instruction: 1 x 5 mg tablet Condition: Saturday Dose/Route: 7.5 mg Instruction: 1.5 x 5 mg tablets Condition: Saturday Dose/Route: 5 mg Instruction: 1 x 5 mg tablet Condition: Dose/Route: 7.5 mg Instruction: 1.5 x 5 mg tablets Condition: Saturday Dose/Route: 5 mg Instruction: 1 x 5 mg tablet Condition: Saturday Dose/Route: 7.5 mg Instruction: 1.5 x 5 mg tablets Protocol Text: Adjustment Start Date: 05/18/21 INR Value: 2.8 INR Date: 05/18/21 Recheck Date: 06/15/21 Additional Instructions: see dose adjustment note senna 8.6 mg capsule 8.6 mg PO BEDTIME 0RF docusate sodium 100 mg capsule 100 mg PO BID 0RF diltiazem HCl 120 mg capsule,extended release 24hr 120 mg PO DAILY 0RF atorvastatin 20 mg tablet 20 mg PO DAILY 0RF albuterol sulfate 90 mcg/actuation HFA aerosol inhaler 2 puff inhalation QID 0RF flecainide 50 mg tablet 50 mg PO Q12H 0RF furosemide 40 mg tablet 40 mg PO BID 0RF potassium chloride 10 mEq tablet extended release 10 meq PO DAILY 0RF
[2021-06-15] MEDS: Albuterol Sulfate (0.083%) 2.5 MG/3 ML VIAL.NEB 5 MG INHALE (08:53)
[2021-06-15] MEDS: cefTRIAXone sodium 1 GM in 0.9 % Sodium Chloride 50 ML IV (08:57)
[2021-06-15] MEDS: methylPREDNISolone Sod Succ 125 MG/2 ML VIAL IVPUSH (08:57)
[2021-06-15 09:16] LABS: Lactic Acid 1.4 mmol/L (0.5-2.0)
[2021-06-15 09:21] LABS: VBG Base Excess 10.6 mmol/L; VBG HCO3 34 mmol/L (22-26); VBG pCO2 42 mmHg; VBG pH 7.51 (7.32-7.43); VBG pO2 191 mmHg
[2021-06-15 09:21] LABS: Venous Blood Gas Refer to POC result
[2021-06-15 09:22] LABS: Basophils Percent Auto 0.3 % (0-2); Eosinophils Absolute Auto 0.1 X10*3/uL (0.0-0.4); Eosinophils Percent Auto 1.2 % (0-4); Hematocrit 44.4 % (42.0-52.0); Hemoglobin 14.1 g/dl (14.0-18.0); Imm Gran Abs Auto 0.17 X10*3/uL (0.00-0.03); Imm Gran Pct Auto 1.4 % (0.0-0.4); Lymphocytes Percent Auto 25.4 % (20-40); MANUAL DIFF FLAG SCAN; Mean Corpuscular HGB Conc 31.8 g/dl (31.0-36.0); Mean Corpuscular Hemoglobin 29.6 pg (27.0-33.0); Mean Corpuscular Volume 93.1 fL (80.0-98.0); Mean Platelet Volume 10.4 fL (9.4-12.4); Monocytes Absolute Auto 1.9 X10*3/uL (0.1-1.2); Monocytes Percent Auto 15.9 % (2-11); Neutrophils Absolute Auto 6.6 x10*3/uL (2.0-8.3); Neutrophils Percent Auto 55.8 % (45-73); Platelet Count 190 X10*3/uL (160-400); Red Blood Count 4.77 X10*6/uL (4.60-5.80); Red Cell Distribution Width 15.1 % (11.0-16.0); SCAN SMEAR FLAG 1; White Blood Count 11.9 X10*3/uL (4.8-10.8)
[2021-06-15 09:25] LABS: COVID-19 Test Negative (Negative); IDNOW Serial# 16C4AD1C; Influenza A Negative (Negative); Influenza B2 Negative (Negative)
[2021-06-15 09:28] LABS: B Type Natriuretic Peptide 17 pg/mL (<100); Troponin-I High Sensitivity < 3.5 ng/L (<3.5-35.0)
[2021-06-15] MEDS: Doxycycline Hyclate 100 MG in 0.9 % Sodium Chloride 250 ML 166.67 MG IV ×2 (09:42→20:10)
[2021-06-15 10:12] LABS: SLIDE REVIEW VERIFIED
[2021-06-15 10:18] LABS: INTERNATIONAL NORM RATIO 2.9 (0.9-1.1); Prothrombin Time 33.4 SEC (9.9-13.0)
--- NOTE | 2021-06-15 10:22 | PC.NURSE ---
Md at bedside to discuss admission
[2021-06-15 10:27] LABS: Alanine Aminotransferase 26 U/L (0-40); Albumin Level 3.9 g/dL (3.5-5.0); Alkaline Phosphatase 80 U/L (39-117); Anion Gap 13 (12-20); Aspartate Amino Transferase 17 U/L (5-37); Bilirubin Direct 0.3 mg/dL (0.0-0.5); Bilirubin Total 0.7 mg/dL (0.0-1.0); Blood Urea Nitrogen 19 mg/dL (9-16); Calcium 9.3 mg/dL (8.4-10.2); Carbon Dioxide 32 mmol/L (22-29); Chloride 102 mmol/L (96-108); Creatinine Clr Calc Pharmacy 98.4; Estimated Glomerular Filt Rate > 60; Glucose Random 92 mg/dL (60-115); Magnesium 1.9 mg/dL (1.6-2.6); Potassium 3.7 mmol/L (3.3-5.1); Sodium 143 mmol/L (135-145); Total Protein 7.1 g/dL (6.5-8.0)
--- NOTE | 2021-06-15 11:11 | PHA.MEDREC ---
Pharmacy Consult ? Medication Reconciliation Pharmacy has completed the medication reconciliation. Spoke with patient in the ED who had a list of all of medications. He took all morning medications.
--- NOTE | 2021-06-15 12:06 | P.HPHOSP_ITS ---
History of Present Illness Date of Service: 06/15/21 Attending physician on admission: Fabio Miller Chief Complaint: shortness of breath This is a 75-year-old male with history of COPD who presents to the emergency department today with complaints of shortness of breath. For the past week and a half patient has had progressively worsening shortness of breath. This is worse with exertion and improves with rest. He denies any associated chest pain or palpitations. He has had associated cough productive of yellow phlegm. No recent sick contacts, fever, chills. For the past 2-3 days he also reports orthopnea. He denies PND. He does have DEREK and reports compliance with his CPAP. He was recently started on cefpodoxime and Medrol Dosepak. He has continued to feel short of breath so he came to the emergency department for evaluation. Chest x-ray showed no evidence of pneumonia. EKG was nonischemic. Cardiac enzymes and BNP were negative. Patient was noted to be hypoxic with an oxygen saturation of 89% on room air. He was treated with IV Solu-Medrol, breathing treatments, antibiotics and the decision was made to admit him for further management. COVID vaccination status- vaccinated x3 with moderna Review of Systems 2 Review of Systems: Yes all other systems are reviewed and are negative Constitutional: Constitutional: Denies chills and Denies fever(s) Cardiovascular: Cardiovascular: Denies chest pain, Denies palpitations, Reports dyspnea, Reports dyspnea on exertion and Reports orthopnea Respiratory: Respiratory: Reports cough, Reports dyspnea and Reports dyspnea on exertion Gastrointestinal: Gastrointestinal: Denies abdominal pain, Denies nausea and Denies vomiting Endocrine: Endocrine: Denies palpitations [facility] Medical History (Updated 06/15/21 @ 12:18 by MECCA Wilkerson) (HFpEF) heart failure with preserved ejection fraction COPD (chronic obstructive pulmonary disease) Lymphedema of both lower extremities Obesity (BMI 35.0-39.9 without comorbidity) DEREK on CPAP Paroxysmal atrial fibrillation Varicose veins of right lower extremity with inflammation Functional capacity: independent ambulation Family History Father No problems noted. Mother No problems noted. Sister No problems noted. Sister No problems noted. Son No problems noted. Daughter No problems noted. Surgical History History of appendectomy Social History (Updated 06/15/21 @ 12:16 by MECCA Wilkerson) Alcohol intake: current Alcohol intake frequency: a few times a month Patient Tobacco Use Status: Former Tobacco user Use of substances other than those prescribed or required for medical reasons: No Advance Directives: No Advance Directives Information Provided: No Meds Allergies Allergy/AdvReac Type Severity Reaction Status Date / Time amoxicillin [From Augmentin] AdvReac Intermediate Nausea and Verified 05/23/21 13:58 Vomiting, dizziness clavulanic acid AdvReac Intermediate Nausea and Verified 05/23/21 13:58 [From Augmentin] Vomiting, dizziness Active Medications: Current Medications Acetaminophen (Acetaminophen 325 Mg Tablet) 650 mg PO Q6H PRN PRN Reason: Pain, Mild (Pain Scale 1-3) Albuterol/Ipratropium (Albuterol/Iprat 2.5/0.5mg 3 Ml Ampul.Neb) 3 ml INHALE RQ6H WHILE AWAKE [facility] Atorvastatin Calcium (Atorvastatin Calcium 20 Mg Tablet) 20 mg PO DAILY [facility] Docusate Sodium (Docusate Sodium 100 Mg Capsule) 100 mg PO DAILY PRN PRN Reason: Constipation Methylprednisolone Sodium Succinate (Methylprednisolone Sod Succ 40 Mg/Ml Vial) 40 mg IVPUSH Q12H [facility] Pharmacy Consult (Consult Rx Perform Med Rec) 1 each MISCELLANE ONCE PRN PRN Reason: Consult order Sodium Chloride (0.9 % Sodium Chloride Flush 3 Ml Syringe) 3 ml IVFLUSH QSHIFT [facility] Home Medications Medication Instructions Recorded Confirmed Last Taken Type albuterol sulfate 90 mcg/actuation 2 puff INHALATION QID PRN 12/08/19 06/15/21 Unknown History aerosol inhaler atorvastatin 20 mg tablet 20 mg PO DAILY 12/08/19 06/15/21 06/15/21 History diltiazem HCl 120 mg 120 mg PO DAILY 12/08/19 06/15/21 06/15/21 History capsule,extended release 24 hr docusate sodium 100 mg capsule 200 mg PO DAILY 12/08/19 06/15/21 06/15/21 History sennosides 8.6 mg capsule (senna) 8.6 mg PO BEDTIME 12/08/19 06/15/21 06/14/21 History furosemide 40 mg tablet 40 mg PO BID tab 02/02/20 06/15/21 06/15/21 History flecainide 50 mg tablet 50 mg PO BID tab 10/27/20 06/15/21 06/15/21 History potassium chloride 10 mEq 10 meq PO DAILY 12/15/20 06/15/21 06/15/21 History tablet,extended release ipratropium 20 mcg-albuterol 100 2 puff INHALATION QID 06/15/21 06/15/21 06/15/21 History mcg/actuation mist for inhalation (Combivent Respimat) multivitamin 1 tab PO DAILY 06/15/21 06/15/21 06/15/21 History warfarin 5 mg tablet 5 mg PO SUMOWEFR@1800 06/15/21 06/15/21 06/15/21 History warfarin 5 mg tablet 7.5 mg PO TUTHSA@1800 06/15/21 06/15/21 06/15/21 History Physical Exam Vital Signs and Narrative: Vital Signs: Last Vital Signs Temp 98.8 F 06/15/21 08:40 Pulse 78 06/15/21 09:39 Resp 22 H 06/15/21 09:50 BP 136/76 06/15/21 09:39 Pulse Ox 95 06/15/21 10:10 BMI result Body Mass Index 36.9 Const: General: cooperative, comfortable, alert and awake Nutritional Ap pearance: overweight Orientation/consciousness: patient oriented x3 Eyes: Pupils: Equal, round and reactive pupils present EOM: EOMs intact bilaterally Resp: Other: diminished breath sounds Effort & Inspection: normal respiratory effort and able to speak in complete sentences Cardio: Rate: regular rate Heart sounds: S1 normal heart sound present and S2 normal heart sound present GI: Inspection: No distended Palpation (GI): Soft to palpation and nontender Neuro: General: patient oriented x3 Cranial nerves: Yes Equal, round and r eactive pupils present Extrem: Other: b/l chronic venous stasis skin changes 1+ edema b/l Results Labs CBC and Chem 7: 06/15/21 09:09 06/15/21 09:58 Labs: Laboratory Results - last 24 hr 06/15/21 06/15/21 06/15/21 08:40 08:40 08:50 MCV MCH MCHC RDW Plt Count MPV Immature Gran % (Auto) Neut % (Auto) Lymph % (Auto) [place] % (Auto) Eos % (Auto) Baso % (Auto) Lymph # (Auto) [place] # (Auto) Eos # (Auto) Baso # (Auto) Abs Immat Gran (auto) Absolute Neuts (auto) Absolute Nucleated RBC Nucleated RBC % (auto) Smear Tech's Comments PT INR VBG pH VBG pCO2 VBG pO2 VBG HCO3 VBG O2 Saturation VBG Base Excess Anion Gap Estim Creat Clear Calc Estimated GFR Random Glucose Lactic Acid Calcium Magnesium Total Bilirubin Direct Bilirubin AST ALT Alkaline Phosphatase Troponin I High Sens B-Natriuretic Peptide 17 Total Protein Albumin COVID-19 (ANGI) Negative COVID-19 Clin Com See Note Influenza Type A (DONITA) Negative Influenza Type B (DONITA) Negative Influenza A & B Note See Note 06/15/21 06/15/21 06/15/21 08:50 08:50 08:57 MCV MCH MCHC RDW Plt Count MPV Immature Gran % (Auto) Neut % (Auto) Lymph % (Auto) [place] % (Auto) Eos % (Auto) Baso % (Auto) Lymph # (Auto) [place] # (Auto) Eos # (Auto) Baso # (Auto) Abs Immat Gran (auto) Absolute Neuts (auto) Absolute Nucleated RBC Nucleated RBC % (auto) Smear Tech's Comments PT INR VBG pH 7.51 H VBG pCO2 42 VBG pO2 191 VBG HCO3 34 H VBG O2 Saturation 99.0 VBG Base Excess 10.6 Anion Gap Estim Creat Clear Calc Estimated GFR Random Glucose Lactic Acid 1.4 Calcium Magnesium Total Bilirubin Direct Bilirubin AST ALT Alkaline Phosphatase Troponin I High Sens < 3.5 B-Natriuretic Peptide Total Protein Albumin COVID-19 (ANGI) COVID-19 Clin Com Influenza Type A (DONITA) Influenza Type B (DONITA) Influenza A & B Note 06/15/21 06/15/21 06/15/21 09:09 09:58 09:58 MCV 93.1 MCH 29.6 MCHC 31.8 RDW 15.1 Plt Count 190 MPV 10.4 Immature Gran % (Auto) 1.4 H Neut % (Auto) 55.8 Lymph % (Auto) 25.4 [place] % (Auto) 15.9 H Eos % (Auto) 1.2 Baso % (Auto) 0.3 Lymph # (Auto) 3.0 [place] # (Auto) 1.9 H Eos # (Auto) 0.1 Baso # (Auto) 0.0 Abs Immat Gran (auto) 0.17 H Absolute Neuts (auto) 6.6 Absolute Nucleated RBC 0.000 Nucleated RBC % (auto) 0.0 Smear Tech's Comments VERIFIED PT 33.4 H INR 2.9 H VBG pH VBG pCO2 VBG pO2 VBG HCO3 VBG O2 Saturation VBG Base Excess Anion Gap 13 Estim Creat Clear Calc 98.4 Estimated GFR > 60 Random Glucose 92 Lactic Acid Calcium 9.3 Magnesium 1.9 Total Bilirubin 0.7 Direct Bilirubin 0.3 AST 17 ALT 26 Alkaline Phosphatase 80 Troponin I High Sens B-Natriuretic Peptide Total Protein 7.1 Albumin 3.9 COVID-19 (ANGI) COVID-19 Clin Com Influenza Type A (DONITA) Influenza Type B (DONITA) Influenza A & B Note Imaging Radiologist's Impressions: Impressions Chest X-Ray 06/15/21 09:15 IMPRESSION: No acute pulmonary finding. Chronic elevation of the left hemidiaphragm. Assessment and Plan (1) Acute respiratory failure with hypoxia: Status: Acute Plan This is a 75 year old male with history of PAF on Coumadin, DEREK on CPAP, HFpEF recently treated for bronchitis who presents to the ED with dyspnea. Acute respiratory failure with hypoxia Oxygen saturation documented at 89% room air. Patient does not use supplemental oxygen at baseline. Likely secondary to acute COPD exacerbation. Possible component of CHF as well. Acute COPD exacerbation Continue supplemental oxygen as needed Scheduled breathing treatments, IV Solu-Medrol IV doxycycline PAF currently in sinus rhythm continue AC with coumadin, INR 2.9 Follow INR daily continue diltiazem, flecainide HFpEF BNP 17,CXR negative previous outpatient notes pt does have RAMOS at baseline but orthopnea appears new ECHO from 05/19 showing impaired relaxation will give a dose of IV lasix and evaluate for response HLD continue statin DEREK continue CPAP Obesity BMI 36.9. weight is likely playing a role in dyspnea DVT ppx - coumadin Code status - DNR/DNI attending: dr. miller Due to age, multiple medical issues patient will likely need two midnight stay in the hospital for evaluation and treatment of dyspnea and COPD exacerbation Quality Stroke Does the patient have a stroke diagnosis?: No VTE Prior VTE?: Yes VTE Risk Level:: Medical - moderate - high VTE Device Contraindication: Treatment Not Indicated VTE Drug Contraindication: N/A - Med Ordered
[2021-06-15] MEDS: Furosemide 40 MG/4 ML VIAL IVPUSH (12:46)
--- NOTE | 2021-06-15 15:02 | PC.NURSE ---
patient moved into reclining chair at this time for comfort. patient in no obvious distress, denies any additional needs
[2021-06-15] MEDS: Albuterol/Iprat 2.5/0.5MG 3 ML AMPUL.NEB INHALE ×2 (15:37→19:27)
[2021-06-15] MEDS: Furosemide 40 MG TABLET PO (18:39)
--- NOTE | 2021-06-15 18:46 | PC.NURSE ---
Pt c/o numbness to his lips that started earlier in the day and is now going away. Provider made aware. Pt also requesting to be a full code. [place] text sent to Maira Barriga provider listed for pt
[2021-06-15] MEDS: Warfarin Sodium 7.5 MG TABLET PO (19:16)
[2021-06-15] MEDS: Sennosides 8.6 MG TABLET PO (20:03)
[2021-06-15] MEDS: Flecainide Acetate 50 MG TABLET PO (20:03)
[2021-06-15] MEDS: 0.9 % Sodium Chloride Flush 3 ML SYRINGE IVFLUSH (20:09)
[2021-06-15] MEDS: methylPREDNISolone Sod Succ 40 MG/ML VIAL IVPUSH (20:09)
--- NOTE | 2021-06-15 20:09 | MHC.CM.PN ---
IMM5/5. HCP on file. HCP/ Deanna Gonzales ([phone]). Vax/boosted x1/Moderna. A&Ox4. Uses CPAP. No services. Independent and very pleasant gentleman. 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 No [place] pharmacy or vet services. Lives with . D/C Plan: home without services. Pt states he will drive himself home. CM to follow for d/c needs.
[2021-06-16 02:15] VITALS: PULSE 78; RESP 18; O2SAT 94
[2021-06-16 03:31] VITALS: BP 115/65; PULSE 76; RESP 19; TEMP 36.3; O2SAT 95
[2021-06-16 07:13] LABS: Hematocrit 44.4 % (42.0-52.0); Hemoglobin 14.2 g/dl (14.0-18.0); Mean Corpuscular Hemoglobin 29.5 pg (27.0-33.0); Mean Corpuscular Volume 92.1 fL (80.0-98.0); Mean Platelet Volume 9.9 fL (9.4-12.4); Platelet Count 171 X10*3/uL (160-400); Red Blood Count 4.82 X10*6/uL (4.60-5.80); Red Cell Distribution Width 14.7 % (11.0-16.0); White Blood Count 17.5 X10*3/uL (4.8-10.8)
[2021-06-16 07:20] LABS: INTERNATIONAL NORM RATIO 2.6 (0.9-1.1); Prothrombin Time 29.9 SEC (9.9-13.0)
[2021-06-16 07:29] LABS: Anion Gap 14 (12-20); Blood Urea Nitrogen 23 mg/dL (9-16); Calcium 9.2 mg/dL (8.4-10.2); Carbon Dioxide 31 mmol/L (22-29); Chloride 101 mmol/L (96-108); Creatinine Clr Calc Pharmacy 99.6; Estimated Glomerular Filt Rate > 60; Glucose Random 131 mg/dL (60-115); Potassium 4.5 mmol/L (3.3-5.1); Sodium 141 mmol/L (135-145)
[2021-06-16 07:53] VITALS: BP 127/70; PULSE 84; RESP 18; TEMP 36.5; O2SAT 94
[2021-06-16] MEDS: Albuterol/Iprat 2.5/0.5MG 3 ML AMPUL.NEB INHALE (07:56)
[2021-06-16 07:58] VITALS: PULSE 72; RESP 18; O2SAT 98
--- NOTE | 2021-06-16 08:59 | MHC.CM.PN ---
Addendum entered by Medina Dickinson 06/16/21 11:48: Per MD rounds patient is ready to discharge today. He is discharged home, no services. Patient will self transport. Original Note: Male 75 DX Dyspnea No change to discharge plan. DP home no services. Patient will self transport.
[2021-06-16] MEDS: Docusate Sodium 100 MG CAPSULE 200 MG PO (09:12)
[2021-06-16] MEDS: 0.9 % Sodium Chloride Flush 3 ML SYRINGE IVFLUSH (09:13)
[2021-06-16] MEDS: Atorvastatin Calcium 20 MG TABLET PO (09:13)
[2021-06-16] MEDS: Flecainide Acetate 50 MG TABLET PO (09:13)
[2021-06-16] MEDS: Furosemide 40 MG TABLET PO (09:13)
[2021-06-16] MEDS: Multivitamin TABLET 1 TAB PO (09:13)
[2021-06-16] MEDS: Doxycycline Hyclate 100 MG in 0.9 % Sodium Chloride 250 ML 166.67 MG IV (09:13)
[2021-06-16] MEDS: dilTIAZem HCL CD 120 MG CAP.ER.DEG PO (09:13)
[2021-06-16] MEDS: methylPREDNISolone Sod Succ 40 MG/ML VIAL IVPUSH (09:18)
[2021-06-16 11:54] VITALS: BP 126/78; PULSE 86; RESP 18; TEMP 36.4; O2SAT 94
--- NOTE | 2021-06-16 12:58 | P.DS_ITS ---
DS: Providers Provider Date of Service: 06/16/21 Date of admission: 06/15/21 11:50 Date of discharge: 06/16/21 Primary care physician: Evelyn Valdez MD Attending physician on discharge: Fabio Vasquez Discharging clinician: Maira Barriga DS: Diagnosis Discharge Diagnosis (1) Acute respiratory failure with hypoxia: Status: Acute (2) Acute exacerbation of chronic obstructive pulmonary disease (COPD): Status: Acute DS: Summary Hospital Course Hospital Course: From H&P on the day of admission This is a 75-year-old male with history of COPD who presents to the emergency department today with complaints of shortness of breath.? For the past week and a half patient has had progressively worsening shortness of breath. This is worse with exertion and improves with rest.? He denies any associated chest pain or palpitations.? He has had associated cough productive of yellow phlegm.? No recent sick contacts, fever, chills.? For the p ast 2-3 days he also reports orthopnea. He denies PND. He does have DEREK and reports compliance with his CPAP.? He was recently started on cefpodoxime and Medrol Dosepak.? He has continued to feel short of breath so he came to the emergency department for evaluation.? Chest x-ray showed no evidence of pneumonia.? EKG was nonischemic.? Cardiac enzymes and BNP were negative.? Patient was noted to be hypoxic with an oxygen saturation of 89% on room air.? He was treated with IV Solu-Medrol, breathing treatments, antibiotics and the decision was made to admit him for further management. COVID vaccination status- vaccinated x3 with moderna Acute respiratory failure with hypoxia secondary to acute COPD exacerbation. Patient was initially required 2 L of supplemental oxygen. Chest x-ray showed no acute finding. Was started on scheduled breathing treatments and IV Solu- Medrol as well as IV doxycycline for treatment of acute COPD exacerbation. Due to concern over mild acute CHF exacerbation despite negative BNP he also received a dose of IV Lasix. Patient is net-2 L. he was able to be weaned off supplemental oxygen and is currently saturating at 94% on room air. He is able to ambulate without dyspnea. He is eager to return home today. He will be discharged home to complete course of doxycycline as well as short steroid taper. Following low-sodium diet, fluid restriction and monitoring daily weight was discussed. Patient is encouraged to follow-up with PCP. Blood cultures have remained negative to date. Time Spent with Patient Time attestation: Total time spent providing and/or coordinating discharge services: Discharge coordination time: Greater than 30 minutes Quality: Safe Use of Opioids Does Pt have an Active Cancer Diagnosis on the Problem List?: No Quality: Stroke Does the patient have a stroke diagnosis?: No Physical Exam Vital Signs: Vital Signs: Last Vital Signs Temp 97.5 F 06/16/21 11:54 Pulse 86 06/16/21 11:54 Resp 18 06/16/21 11:54 BP 126/78 06/16/21 11:54 Pulse Ox 94 06/16/21 11:54 BMI result Body Mass Index 36.9 Const: General: cooperative, comfortable, alert and awake Nutritional Appearance: overweight Orientation/consciousness: patient oriented x3 Eyes: Pupils: Equal, round and reactive pupils present EOM: EOMs intact bilaterally Resp: Effort & Inspection: normal respiratory effort and able to speak in complete sentences Cardio: Rate: regular rate Heart sounds: S1 normal heart sound present and S2 normal heart sound present GI: Inspection: No distended Palpation (GI): Soft to palpation and non tender Neuro: General: patient oriented x3 Cranial nerves: Yes Equal, round and reactive pupils present Extrem: Other: b/l chronic venous stasis skin changes 1+ edema b/l DS: Data Data Completed and Pending Labs on day of discharge: Laboratory Results - last 24 hr 06/16/21 06/16/21 06/16/21 06:46 06:46 06:46 WBC 17.5 H RBC 4.82 Hgb 14.2 Hct 44.4 MCV 92.1 MCH 29.5 MCHC 32.0 RDW 14.7 Plt Count 171 MPV 9.9 Absolute Nucleated RBC 0.000 Nucleated RBC % (auto) 0.0 PT 29.9 H INR 2.6 H Sodium 141 Potassium 4.5 D Chloride 101 Carbon Dioxide 31 H Anion Gap 14 BUN 23 H Creatinine 0.82 Estim Creat Clear Calc 99.6 Estimated GFR > 60 Random Glucose 131 H D Calcium 9.2 Preliminary micro results at discharge 06/15/21 09:09 Blood Culture - Preliminary Blood - Venous No growth after 24 hours. 06/15/21 08:50 Blood Culture - Preliminary Blood - Venous No growth after 24 hours. Discharge Plan Discharge Patient Disposition: Home, Self-Care Discharge Diagnosis: Acute COPD exacerbation Referrals: Evelyn Valdez MD [Primary Care Provider] - 1 Week Discharge Medications: New prednisone 10 mg tablet See Taper mg PO DAILY Qty: 20 0RF Taper: Prednisone 40 mg daily for 2 Days and 0 Hour 30 mg daily for 2 Days and 0 Hour 20 mg daily for 2 Days and 0 Hour 10 mg daily for 2 Days and 0 Hour doxycycline hyclate 100 mg tablet 100 mg PO BID 4 Days Qty: 8 0RF Continued albuterol sulfate 2.5 mg /3 mL (0.083 %) solution for nebulization 2.5 mg inhalation Q4-8H PRN (Reason: shortness of breath or wheezing) Qty: 180 0RF Breo Ellipta 200-25 mcg/dose blister with device 1 inh inhalation DAILY Qty: 60 3RF multivitamin Tablet 1 tab PO DAILY 0RF warfarin 5 mg tablet 5 mg PO SUMOWEFR@1800 0RF warfarin 5 mg tablet 7.5 mg PO TUTHSA@1800 0RF Combivent Respimat 20-100 mcg/actuation mist 2 puff inhalation QID 0RF warfarin 5 mg tablet 5 mg PO DAILY Qty: 90 0RF Protocol: Dose Management Condition: Saturday (Week One) Dose/Route: 5 mg Instruction: 1 x 5 mg tablet Condition: Saturday Dose/Route: 5 mg Instruction: 1 x 5 mg tablet Condition: Saturday Dose/Route: 2.5 mg Instruction: 0.5 x 5 mg tablets Condition: Saturday Dose/Route: 5 mg Instruction: 1 x 5 mg tablet Condition: Dose/Route: 7.5 mg Instruction: 1.5 x 5 mg tablets Condition: Saturday Dose/Route: 5 mg Instruction: 1 x 5 mg tablet Condition: Saturday Dose/Route: 7.5 mg Instruction: 1.5 x 5 mg tablets Condition: Saturday (Week Two) Dose/Route: 5 mg Instruction: 1 x 5 mg tablet Condition: Saturday Dose/Route: 5 mg Instruction: 1 x 5 mg tablet Condition: Saturday Dose/Route: 7.5 mg Instruction: 1.5 x 5 mg tablets Condition: Saturday Dose/Route: 5 mg Instruction: 1 x 5 mg tablet Condition: Dose/Route: 7.5 mg Instruction: 1.5 x 5 mg tablets Condition: Saturday Dose/Route: 5 mg Instruction: 1 x 5 mg tablet Condition: Saturday Dose/Route: 7.5 mg Instruction: 1.5 x 5 mg tablets Protocol Text: Adjustment Start Date: 05/18/21 INR Value: 2.8 INR Date: 05/18/21 Recheck Date: 06/15/21 Additional Instructions: see dose adjustment note senna 8.6 mg capsule 8.6 mg PO BEDTIME 0RF docusate sodium 100 mg capsule 200 mg PO DAILY 0RF diltiazem HCl 120 mg capsule,extended release 24hr 120 mg PO DAILY 0RF atorvastatin 20 mg tablet 20 mg PO DAILY 0RF albuterol sulfate 90 mcg/actuation HFA aerosol inhaler 2 puff inhalation QID PRN (Reason: Shortness Of Breath) 0RF flecainide 50 mg tablet 50 mg PO BID 0RF furosemide 40 mg tablet 40 mg PO BID 0RF potassium chloride 10 mEq tablet extended release 10 meq PO DAILY 0RF Discharge Orders: Discharge Order (Routine); Ordered 06/16/21 Ordered By: Maira Barriga Activity on Discharge: As tolerated Stand Alone Forms: Patient Portal Discharge page Care Plan Goals: see below Health Concerns: acute COPD exacerbation Plan of Treatment: take antibiotics and prednisone as prescribed call to schedule follow up with PCP Assessment: see discharge summary Discharge Date/Time: 06/16/21 14:30
== END 2021-06-16 14:30 | disposition home or self-care (01) | DRG 190 ==
LOC: HO.ED 10:41 → HO.EDOVER 12:08 → HO.IMC 21:48
PROVIDERS: Admitting Provider Physician Assistant Medical; Emergency Provider Emergency Medicine; PCP Internal Medicine; Visit Provider Physician Assistant Medical
DX: J44.1 Chronic obstructive pulmonary disease with (acute) exacerbation (principal); J96.01 Acute respiratory failure with hypoxia; I50.33 Acute on chronic diastolic (congestive) heart failure; G47.33 Obstructive sleep apnea (adult) (pediatric); I48.0 Paroxysmal atrial fibrillation; E66.9 Obesity, unspecified; Z68.36 Body mass index [BMI] 36.0-36.9, adult; Z20.822 Contact with and (suspected) exposure to COVID-19; Z87.01 Personal history of pneumonia (recurrent); Z88.0 Allergy status to penicillin; Z79.01 Long term (current) use of anticoagulants; Z79.51 Long term (current) use of inhaled steroids; Z79.899 Other long term (current) drug therapy
CPT/HCPCS: 36415; 71045; 80048; 80076; 82803; 83605; 83735; 83880; 84484; 85025; 85027; 85610; 87040; 87502; 87635; 93005; 94640; 94644; 94660; 96365; 96367; 96375; 99285; J0696; J1940; J2920; J2930

== ENCOUNTER → 2021-06-19 13:07 | Outpatient (BNVA) | payer BC, SELFPAY | PROVIDERS: PCP Internal Medicine; Visit Provider Internal Medicine | DX: I48.19 Other persistent atrial fibrillation (principal); Z86.718 Personal history of other venous thrombosis and embolism; Z79.01 Long term (current) use of anticoagulants; Z51.81 Encounter for therapeutic drug level monitoring | CPT/HCPCS: 85610; 99211 ==

== ENCOUNTER → 2021-06-26 13:18 | Outpatient (BNVA) | payer BC, SELFPAY | PROVIDERS: PCP Internal Medicine; Visit Provider Internal Medicine | DX: I48.19 Other persistent atrial fibrillation (principal); Z86.718 Personal history of other venous thrombosis and embolism; Z79.01 Long term (current) use of anticoagulants; Z51.81 Encounter for therapeutic drug level monitoring | CPT/HCPCS: 85610; 99211 ==

== ENCOUNTER → 2021-07-05 09:34 | Outpatient (BNVA) | payer BC, SELFPAY | PROVIDERS: PCP Internal Medicine; Referring Provider Internal Medicine; Visit Provider Internal Medicine Cardiovascular Disease | DX: I48.0 Paroxysmal atrial fibrillation (principal) ==

== ENCOUNTER → 2021-07-06 10:58 | Outpatient (BNVA) | payer BC, SELFPAY | PROVIDERS: PCP Internal Medicine; Visit Provider Surgery Vascular Surgery | DX: I83.11 Varicose veins of right lower extremity with inflammation (principal) ==

== ENCOUNTER → 2021-07-13 13:04 | Outpatient (BNVA) | payer SELFPAY | PROVIDERS: PCP Internal Medicine; Visit Provider Internal Medicine | DX: I48.19 Other persistent atrial fibrillation (principal); Z86.718 Personal history of other venous thrombosis and embolism; Z79.01 Long term (current) use of anticoagulants; Z51.81 Encounter for therapeutic drug level monitoring | CPT/HCPCS: 85610; 99211 ==

== ENCOUNTER → 2021-07-27 13:05 | Outpatient (BNVA) | payer SELFPAY | PROVIDERS: PCP Internal Medicine; Visit Provider Internal Medicine | DX: I48.19 Other persistent atrial fibrillation (principal); Z86.718 Personal history of other venous thrombosis and embolism; Z79.01 Long term (current) use of anticoagulants; Z51.81 Encounter for therapeutic drug level monitoring | CPT/HCPCS: 85610; 99211 ==

== ENCOUNTER → 2021-08-17 13:07 | Outpatient (BNVA) | payer MEDICARE, SELFPAY | PROVIDERS: PCP Internal Medicine; Visit Provider Internal Medicine | DX: I48.19 Other persistent atrial fibrillation (principal); Z86.718 Personal history of other venous thrombosis and embolism; Z79.01 Long term (current) use of anticoagulants; Z51.81 Encounter for therapeutic drug level monitoring | CPT/HCPCS: 85610; 99211 ==

== ENCOUNTER → 2021-08-31 13:18 | Outpatient (BNVA) | payer MEDICARE, SELFPAY | PROVIDERS: PCP Internal Medicine; Visit Provider Internal Medicine | DX: I48.19 Other persistent atrial fibrillation (principal); Z86.718 Personal history of other venous thrombosis and embolism; Z79.01 Long term (current) use of anticoagulants; Z51.81 Encounter for therapeutic drug level monitoring | CPT/HCPCS: 85610; 99211 ==

== ENCOUNTER 2021-09-11 12:48 | Outpatient (REF) | payer MEDICARE, SELFPAY ==
--- NOTE | ~2021-09-11 | US_ITS ---
EXAMINATION: US LOWER EXTREMITY VENOUS (REFLUX EXAM), BILATERAL CLINICAL INDICATION: This a 75-year-old male with venous insufficiency and varicose veins. COMPARISON: Comparison is made to a previous study dated 12/16/2019. TECHNIQUE: Color flow triplex imaging and compression Doppler was performed to evaluate both the deep and the superficial systems bilaterally. To evaluate the superficial system, the examination was performed in the upright position. Color-flow Doppler ultrasound and compression ultrasound were utilized. In addition, maneuvers were utilized to demonstrate reflux. FINDINGS: 1. DEEP VENOUS ULTRASOUND OF THE RIGHT LOWER EXTREMITY: Common Femoral Vein: Compressible but with reflux of 1560 ms. Femoral vein: Compressible, but with reflux of 2332 ms Popliteal Vein: Compressible but with reflux of 3280 ms. Deep Reflux: There is evidence of reflux in the deep system in either the common femoral vein or the popliteal vein. There is no evidence of a Vazquez's cyst. 2. SUPERFICIAL ULTRASOUND WITH DOPPLER OF RIGHT LOWER EXTREMITY: GREAT SAPHENOUS VEIN: Saphenofemoral Junction: 1.1 cm Mid Thigh: 0.6 cm Above Knee: 0.6 cm Below Knee: 0.6 cm Mid Calf: 0.5 cm Ankle: 0.5 cm GSV REFLUX: No evidence of reflux. DUPLICATED GREAT SAPHENOUS VEIN: None SMALL SAPHENOUS VEIN: Proximal: 0.6 cm. There is no reflux at this level. Distal: 0.3 cm. The reflux time is 908 ms. SSV REFLUX: No evidence of reflux. VEIN OF GIACOMINI: None Imaged. PERFORATORS: There is a 0.3 cm proximal calf cattle tester with 964 ms of reflux. VARICOSITIES: There are 0.3 cm thigh varicose veins and mid calf varicose veins without reflux. 3. DEEP VENOUS ULTRASOUND OF THE LEFT LOWER EXTREMITY: Common Femoral Vein: Compressible, normal respiratory variation and augmented flow. Femoral Vein: Compressible, normal color flow and augmentation. Popliteal Vein: Compressible, but with reflux of 3040 ms. Deep Reflux: There is evidence of reflux in the deep system in the popliteal vein. There is no evidence of a Vazquez's cyst. 4. SUPERFICIAL ULTRASOUND WITH DOPPLER OF LEFT LOWER EXTREMITY: GREAT SAPHENOUS VEIN: Saphenofemoral Junction: 0.8 cm. There is no reflux. Mid Thigh: 0.4 cm. There is no reflux. Above Knee: 0.4 cm. There is no reflux. Below Knee: 0.3 cm. The reflux time is 3004 and 72 ms. Mid Calf: 0.3 cm. The reflux time is 3540 ms. Ankle: 0.3 cm. There is no reflux. GSV REFLUX: There is isolated reflux at the knee and into the mid calf. There is no reflux at the junction. DUPLICATED GREAT SAPHENOUS VEIN: There is a 0.7 cm duplicated medial great saphenous vein without reflux. SMALL SAPHENOUS VEIN: Proximal: 0.6 cm. The reflux time is 1564 ms. Distal: 0.3 cm. There is no reflux. SSV REFLUX: There is proximal and junctional reflux noted. VEIN OF GIACOMINI: None Imaged. PERFORATORS: There are 0.6 cm calf perforators with 1504 ms of reflux. VARICOSITIES: There are 0.5 cm calf varicose veins with 1924 ms of reflux. US/US venous duplex LE BI IMPRESSION: 1. There is a patent right great saphenous vein without evidence of reflux. 2. There is a patent right small saphenous vein without evidence of reflux at the junction. 3. There are varicose veins in the right thigh and calf measuring 0.3 cm without reflux. 4. There is a patent left great saphenous vein without evidence of reflux at the junction and extending down to the knee. Reflux begins at the knee. 5. There is a patent left small saphenous vein measuring 0.6 cm and with reflux at the junction. 6. There are varicose veins in the left calf with reflux measuring 0.3 cm, 0.4 cm, 0.5 cm.
== END 2021-09-11 12:49 | disposition home or self-care (01) ==
LOC: HO.US 12:48
PROVIDERS: Visit Provider Surgery Vascular Surgery
DX: I83.11 Varicose veins of right lower extremity with inflammation (principal)
CPT/HCPCS: 93970

== ENCOUNTER → 2021-09-21 13:20 | Outpatient (BNVA) | payer MEDICARE, SELFPAY | PROVIDERS: PCP Internal Medicine; Visit Provider Internal Medicine | DX: I48.19 Other persistent atrial fibrillation (principal); Z86.718 Personal history of other venous thrombosis and embolism; Z79.01 Long term (current) use of anticoagulants; Z51.81 Encounter for therapeutic drug level monitoring | CPT/HCPCS: 85610; 99211 ==

== ENCOUNTER → 2021-09-28 10:05 | Outpatient (BNVA) | payer MEDICARE, SELFPAY | PROVIDERS: PCP Internal Medicine; Visit Provider Surgery Vascular Surgery | DX: I83.11 Varicose veins of right lower extremity with inflammation (principal) | CPT/HCPCS: 99212 ==

== ENCOUNTER → 2021-10-02 10:04 | Outpatient (BNVA) | payer MEDICARE, SELFPAY | PROVIDERS: PCP Internal Medicine; Visit Provider Internal Medicine | DX: I48.19 Other persistent atrial fibrillation (principal); Z79.01 Long term (current) use of anticoagulants; Z86.718 Personal history of other venous thrombosis and embolism | CPT/HCPCS: Q3014 ==

== ENCOUNTER → 2021-10-12 13:23 | Outpatient (BNVA) | payer MEDICARE, SELFPAY | PROVIDERS: PCP Internal Medicine; Visit Provider Internal Medicine | DX: I48.19 Other persistent atrial fibrillation (principal); Z86.718 Personal history of other venous thrombosis and embolism; Z51.81 Encounter for therapeutic drug level monitoring; Z79.01 Long term (current) use of anticoagulants | CPT/HCPCS: 85610; 99211 ==

== ENCOUNTER → 2021-10-24 13:20 | Outpatient (BNVA) | payer MEDICARE, SELFPAY | PROVIDERS: PCP Internal Medicine; Visit Provider Internal Medicine | DX: I48.19 Other persistent atrial fibrillation (principal); Z86.718 Personal history of other venous thrombosis and embolism; Z79.01 Long term (current) use of anticoagulants; Z51.81 Encounter for therapeutic drug level monitoring | CPT/HCPCS: 85610; 99211 ==

== ENCOUNTER → 2021-10-27 09:18 | Outpatient (BNVA) | payer MEDICARE, SELFPAY | PROVIDERS: PCP Internal Medicine; Visit Provider Surgery Vascular Surgery | DX: I83.11 Varicose veins of right lower extremity with inflammation (principal) | CPT/HCPCS: 36482 ==

== ENCOUNTER 2021-10-30 15:12 | Outpatient (REF) | payer MEDICARE, SELFPAY ==
--- NOTE | ~2021-10-30 | US_ITS ---
EXAMINATION: US VENOUS ULTRASOUND WITH DOPPLER LOWER EXTREMITY, RIGHT CLINICAL INFORMATION: Pain. 3 days post vena seal procedure COMPARISON: Previous exam September 2021 TECHNIQUE: Ultrasound of the deep veins is performed from the hip to the calf with compression sonography and color and pulse Doppler assessment. Spectral analysis with color-flow imaging is performed. FINDINGS: There is normal venous compression and respiratory variation and augmented flow. The visualized common femoral vein, superficial femoral vein, profunda femoral vein, popliteal vein, and the trifurcation region shows no evidence of deep venous thrombosis. 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 There is echogenic material in the left lesser saphenous vein post vena seal procedure. There is flow seen in the lesser saphenous vein. There is no significant popliteal fossa cyst. US/US venous duplex LE RT IMPRESSION: No DVT demonstrated in the right lower extremity. Echogenic material in the right lesser saphenous vein post vena seal procedure.
== END 2021-10-30 15:13 | disposition home or self-care (01) ==
LOC: HO.US 15:12
PROVIDERS: Visit Provider Surgery Vascular Surgery
DX: M79.604 Pain in right leg (principal)
CPT/HCPCS: 93971

== ENCOUNTER → 2021-11-07 13:24 | Outpatient (BNVA) | payer MEDICARE, SELFPAY | PROVIDERS: PCP Internal Medicine; Visit Provider Internal Medicine | DX: I48.19 Other persistent atrial fibrillation (principal); Z86.718 Personal history of other venous thrombosis and embolism; Z79.01 Long term (current) use of anticoagulants; Z51.81 Encounter for therapeutic drug level monitoring | CPT/HCPCS: 85610; 99211 ==

== ENCOUNTER → 2021-11-09 14:08 | Outpatient (BNVA) | payer MEDICARE, SELFPAY | PROVIDERS: PCP Internal Medicine; Visit Provider Surgery Vascular Surgery | DX: I83.11 Varicose veins of right lower extremity with inflammation (principal); I89.0 Lymphedema, not elsewhere classified | CPT/HCPCS: 99212 ==

== ENCOUNTER → 2021-11-14 14:50 | Outpatient (BNVA) | payer MEDICARE, SELFPAY | PROVIDERS: PCP Internal Medicine; Visit Provider Internal Medicine | DX: I48.19 Other persistent atrial fibrillation (principal); Z86.718 Personal history of other venous thrombosis and embolism; Z79.01 Long term (current) use of anticoagulants; Z51.81 Encounter for therapeutic drug level monitoring | CPT/HCPCS: 85610; 99211 ==

== ENCOUNTER 2021-12-12 13:19 | Outpatient (REF) | payer MEDICARE, SELFPAY ==
[2021-12-12 14:53] LABS: Prothrombin Time 79.5 SEC (10.0-13.1)
[2021-12-12 14:55] LABS: INTERNATIONAL NORM RATIO 6.4 (0.9-1.1)
== END 2021-12-12 13:20 | disposition home or self-care (01) ==
LOC: HO.LAB 13:19
PROVIDERS: Internal Medicine; PCP Internal Medicine; Visit Provider Internal Medicine
DX: I48.19 Other persistent atrial fibrillation (principal); Z86.718 Personal history of other venous thrombosis and embolism; J44.1 Chronic obstructive pulmonary disease with (acute) exacerbation; E66.9 Obesity, unspecified; G47.33 Obstructive sleep apnea (adult) (pediatric); Z99.89 Dependence on other enabling machines and devices; R05.9 Cough, unspecified; Z51.81 Encounter for therapeutic drug level monitoring; Z79.01 Long term (current) use of anticoagulants
CPT/HCPCS: 36415; 85610; 99212

== ENCOUNTER → 2021-12-14 14:50 | Outpatient (BNVA) | payer MEDICARE, SELFPAY | PROVIDERS: PCP Internal Medicine; Visit Provider Internal Medicine | DX: I48.19 Other persistent atrial fibrillation (principal); Z86.718 Personal history of other venous thrombosis and embolism; Z79.01 Long term (current) use of anticoagulants; Z51.81 Encounter for therapeutic drug level monitoring | CPT/HCPCS: 85610; 99211 ==

== ENCOUNTER 2021-12-16 13:27 | Inpatient (IN) | payer MEDICARE, SELFPAY ==
--- NOTE | ~2021-12-16 | CT_ITS ---
EXAMINATION: CT CHEST WITHOUT CONTRAST CLINICAL INFORMATION: Rule out pneumonia COMPARISON: Chest x-ray 12/16/2021 TECHNIQUE: Multidetector volumetric CT imaging of the chest was done. Axial MIP volume rendering provided. Sagittal and coronal reformatted images were obtained. This CT examination was performed using dose optimization techniques as appropriate, variously including the following: *Automated exposure control *Adjustment of mA and/or kV according to patient size (this includes techniques or standardized protocols for targeted exams where dose is matched to indication/reason for exam; i.e. extremities or head) *Use of iterative reconstruction technique DLP: 363 mGy-cm FINDINGS: LUNGS: Mild biapical emphysema. There are dense regions of opacity in the inferior lingula and basilar left lower lobe, overall more suggestive of atelectasis. There is more extensive opacification of the right lower lobe with air bronchograms which is more suspicious for pneumonia. There is also partial opacification of the right middle lobe with groundglass and dense consolidative opacities. Additional patchy ground glass opacities present in the right upper lobe near the minor fissure. MEDIASTINUM: Visualized thyroid gland is unremarkable. A few mediastinal lymph nodes measure near the upper limits of normal in size. Cardiac size is within normal limits; no pericardial effusion. Scattered calcification along the aorta. CORONARY ARTERY CALCIFICATION: Present PLEURA: There is no pleural effusion. No pleural mass or thickening. AXILLA: No lymphadenopathy. UPPER ABDOMEN: Numerous hypoattenuating lesions throughout the liver favor cysts. Partially visualized right upper pole renal cyst; no follow-up recommended based on this appearance. OSSEOUS STRUCTURES: Status post sternotomy. Degenerative changes are noted in the spine. CT/CT chest wo IV con IMPRESSION: 1. Dense opacification of the right lower lobe with air bronchograms, suspicious for pneumonia or sequelae of aspiration. Additional patchy opacities in the right middle lobe and right upper lobe are also suspicious for pneumonia. 2. Dense regions of opacity in the inferior lingula and basilar left lower lobe, more suggestive of atelectasis. 3. Few mediastinal lymph nodes near the upper limits of normal in size, which may be reactive. 4. Mild biapical emphysema. 5. Coronary artery calcifications. Correlation with cardiac risk factors is recommended.
--- NOTE | ~2021-12-16 | XR_ITS ---
EXAMINATION: XR CHEST CLINICAL INFORMATION: Shortness of breath COMPARISON: 06/15/2021 TECHNIQUE: Frontal view of the chest was obtained. FINDINGS: Low lung volumes. Mild peribronchial vascular opacities may reflect edema or atypical infection. Probable small bilateral effusions. Unchanged cardiomediastinal silhouette. XR/XR chest 1V IMPRESSION: Mild peribronchial vascular opacities may reflect edema or atypical infection. Probable small bilateral effusions.
[2021-12-16 13:46] VITALS: BP 122/48; PULSE 78; RESP 20; TEMP 36.7; O2SAT 91; BMI 38.9
[2021-12-16 14:18] LABS: Basophils Percent Auto 0.3 % (0-2); Eosinophils Absolute Auto 0.1 X10*3/uL (0.0-0.4); Eosinophils Percent Auto 1.2 % (0-4); Hematocrit 37.3 % (42.0-52.0); Imm Gran Abs Auto 0.03 X10*3/uL (0.00-0.03); Imm Gran Pct Auto 0.3 % (0.0-0.4); Lymphocytes Percent Auto 9.9 % (20-40); MANUAL DIFF FLAG SCAN; Mean Corpuscular HGB Conc 32.2 g/dl (31.0-36.0); Mean Corpuscular Hemoglobin 29.3 pg (27.0-33.0); Mean Platelet Volume 10.7 fL (9.4-12.4); Monocytes Percent Auto 20.3 % (2-11); Neutrophils Absolute Auto 6.6 x10*3/uL (2.0-8.3); PLT CLUMP 1; Red Cell Distribution Width 15.3 % (11.0-16.0); SCAN SMEAR FLAG 1
[2021-12-16 14:19] LABS: Platelet Count 126 X10*3/uL (160-400); White Blood Count 9.8 X10*3/uL (4.8-10.8)
[2021-12-16 14:22] LABS: INTERNATIONAL NORM RATIO 2.6 (0.9-1.1); Prothrombin Time 31.1 SEC (10.0-13.1)
[2021-12-16 14:30] LABS: Alanine Aminotransferase 23 U/L (0-40); Albumin Level 3.4 g/dL (3.5-5.0); Alkaline Phosphatase 68 U/L (39-117); Anion Gap 17 (12-20); Aspartate Amino Transferase 18 U/L (5-37); Bilirubin Total 0.9 mg/dL (0.0-1.0); Blood Urea Nitrogen 13 mg/dL (9-16); Calcium 8.3 mg/dL (8.4-10.2); Carbon Dioxide 24 mmol/L (22-29); Chloride 104 mmol/L (96-108); Creatinine Clr Calc Pharmacy 114.9; Estimated Glomerular Filt Rate > 60; Glucose Random 120 mg/dL (60-115); Potassium 4.2 mmol/L (3.3-5.1); Sodium 141 mmol/L (135-145); Total Protein 6.2 g/dL (6.5-8.0)
[2021-12-16 14:42] LABS: SLIDE REVIEW VERIFIED
[2021-12-16 14:50] LABS: Influenza A PCR NEGATIVE (Negative); Influenza B PCR NEGATIVE (Negative); Resp Syncy Virus RNA Qual PCR NEGATIVE (Negative); SARS COV2 PCR INHOUSE NEGATIVE (Negative)
[2021-12-16 18:40] VITALS: BP 129/60; PULSE 81; RESP 18; O2SAT 92
--- NOTE | 2021-12-16 22:03 | ED_ITS ---
HPI - SOB/Dyspnea General Chief Complaint: Dyspnea Stated Complaint: sob, edema in feet Time Seen by Provider: 12/16/21 21:47 Source: patient Mode of arrival: ambulatory Limitations: no limitations History of Present Illness HPI Narrative: The patient comes to the emergency room complaining of shortness of breath. Patient states that he has been coughing quite a bit and also becomes very short of breath with minimal exertion, even with just sitting. Patient has history of COPD and heart failure with preserved ejection fraction. Of note, patient went to [facility] last month, he went on vacation and on the 27 of November he need to be hospitalized for 4 days for a COPD exacerbation and influenza. Since then, patient has not quite recovered well. Also, patient complaining of worsening lower extremity edema, patient takes Lasix 40 mg twice a day. Patient denies fever chills. Related Data Home Medications Medication Instructions Recorded Confirmed albuterol sulfate 90 mcg/actuation 2 puff inhalation QID PRN 12/08/19 12/14/21 aerosol inhaler Shortness Of Breath atorvastatin 20 mg tablet 20 mg PO DAILY 12/08/19 12/14/21 diltiazem HCl 120 mg 120 mg PO DAILY 12/08/19 12/14/21 capsule,extended release 24 hr docusate sodium 100 mg capsule 200 mg PO DAILY 12/08/19 12/14/21 sennosides 8.6 mg capsule (senna) 8.6 mg PO BEDTIME 12/08/19 12/14/21 furosemide 40 mg tablet 40 mg PO BID 02/02/20 12/14/21 flecainide 50 mg tablet 50 mg PO BID 10/27/20 12/14/21 potassium chloride 10 mEq 10 meq PO DAILY 12/15/20 12/14/21 tablet,extended release multivitamin 1 tab PO DAILY 06/15/21 12/14/21 warfarin 5 mg tablet 5 mg PO SUMOWEFR@1800 06/15/21 12/14/21 warfarin 5 mg tablet 7.5 mg PO TUTHSA@1800 06/15/21 12/14/21 Previous Rx's Medication Instructions Recorded fluticasone 500 mcg-salmeterol 50 1 inh inhalation BID 30 days #60 ea 11/13/21 mcg/dose blistr powdr for inhalation (Advair Diskus) albuterol sulfate 2.5 mg/3 mL 2.5 mg (3 mL) inhalation Q4-8H PRN 12/12/21 (0.083 %) solution for nebulization shortness of breath or wheezing #180 mL Allergies Allergy/AdvReac Type Severity Reaction Status Date / Time amoxicillin [From Augmentin] AdvReac Intermediate Nausea and Verified 12/14/21 15:05 Vomiting, dizziness clavulanic acid AdvReac Intermediate Nausea and Verified 12/14/21 15:05 [From Augmentin] Vomiting, dizziness Review of Systems Review of Systems: Constitutional : No Weight loss, No Fever, No Chills, No Night Sweats, complaining of fatigue ENT/Mouth : No Hearing loss, No Ear Pain, No Nasal Congestion, No Sinus Pain, No Hoarseness, No sore throat, No Rhinorrhea, No Swallowing Difficulty Eyes: No Eye Pain, No Swelling, No Redness, No Foreign Body, No Discharge, No Vision Changes Cardiovascular : No Chest Pain, complaining of shortness of breath with minimal exertion and sometimes just with sitting, chronic cough orthopnea, complaining of worsening lower extremity edema Respiratory : Complaining of worsening Cough, No Sputum, No Wheezing, Gastrointestinal : No Nausea, No Vomiting, No Diarrhea, No Constipation, No abdominal Pain, No Hematochezia, No Melena Genitourinary : no irregular bleeding, No Dysuria, No Urinary Frequency, No Hematuria, No Urinary Incontinence, No Urgency, No Flank Pain, No Urinary Flow Changes, No Hesitancy Musculoskeletal : No joint pain, No Myalgias, No Joint Swelling Skin : No Skin Lesions, No rash Neuro : No Weakness, No Numbness, No Paresthesias, No Loss of Consciousness, No Dizziness, No Headache Psych : No Anxiety/Panic, No Depression, No SI/HI/AH/VH, No Social Issues, Heme/Lymph: No Bruising, No Bleeding,No Lymphadenopathy Endocrine : No Polyuria, No Polydipsia, No Temperature Intolerance PMFSH Past Medical History Medical History (HFpEF) heart failure with preserved ejection fraction COPD (chronic obstructive pulmonary disease) Cough Lymphedema of both lower extremities Obesity (BMI 35.0-39.9 without comorbidity) DEREK on CPAP Paroxysmal atrial fibrillation Varicose veins of right lower extremity with inflammation Surgical History History of appendectomy Family History Family History Father No problems noted. Mother No problems noted. Sister No problems noted. Sister No problems noted. Son No problems noted. Daughter No problems noted. Social History Social History Household Members: Spouse Housing: House Do you presently have visiting nurse or other home services: Yes Alcohol intake: current Alcohol intake frequency: a few times a week Alcohol type: beer Patient Tobacco Use Status: Former Tobacco user Smoked in Last 30 Days: No Use of substances other than those prescribed or required for medical reasons: No Advance Directives: No Advance Directives Information Provided: No service: Yes Current occupational status: retired Physical Exam Vital Signs: Vital Signs: Last Vital Signs Temp 98.1 F 12/17/21 01:11 ED T Pulse 98 12/17/21 01:11 ED T Resp 21 H 12/17/21 01:11 ED T BP 138/61 12/17/21 01:11 ED T Pulse Ox 92 12/17/21 01:11 ED T O2 Del Method 12/17/21 01:11 ED T O2 Flow Rate 4 12/17/21 01:11 ED T BMI result Body Mass Index 38.9 Const: Other: Appearance: Alert. Oriented X3. No acute distress. Eyes: Pupils equal, round and reactive to light. ENT: Pharynx normal. Neck: Normal inspection. Neck supple. No lymph nodes noted. No crepitus CVS: Normal heart rate and rhythm. Pulses normal. Normal S1 and S2 Respiratory: Mild bilateral crackles No Wheezing. No rales Abdomen: Soft and nontender. No rigidity. No distention. Skin: Skin warm and dry. Normal skin color. Normal skin turgor. Extremities: Chronic venous stasis and chronic lymphedema , +2 pitting edema Neuro: Oriented X 3. No motor deficit. No sensory deficit. Moving all extremities. No slurred speech. CN 2 through 12 grossly intact Psych: calm, cooperative, normal affect Course Course Course Narrative: Patient's oxygen saturation remains between 90-92% on room air. Patient walks less than 30 ft, patient became very hypoxic, tachypneic and his oxygen saturation dropped to 82%. Patient was walked back to his bed, he is now on 3 L nasal cannula saturating 93%. Chest CT pending, pulmonary embolism not suspected, patient is already on Coumadin with a therapeutic INR 01:53: CT scan shows a dense opacification of the right lower lobe, suspicious for pneumonia. Patient has already been treated with IV antibiotics and fluids. Patient is not septic, heart rate within normal limits, normal blood pressure, no fever Patient uses CPAP at bedtime I discussed the patient with Dr. Ivy, pt being admitted MDM - SOB/Dyspnea Lab Data Result diagrams: 12/16/21 13:59 12/16/21 13:59 Labs: Lab Results 12/16/21 12/16/21 12/16/21 Range/Units 13:59 13:59 13:59 WBC 9.8 (4.8-10.8) X10*3/uL RBC 4.10 L (4.60-5.80) X10*6/uL Hgb 12.0 L (14.0-18.0) g/dl Hct 37.3 L (42.0-52.0) % MCV 91.0 (80.0-98.0) fL MCH 29.3 (27.0-33.0) pg MCHC 32.2 (31.0-36.0) g/dl RDW 15.3 (11.0-16.0) % Plt Count 126 L D (160-400) X10*3/uL MPV 10.7 (9.4-12.4) fL Immature Gran % (Auto) 0.3 (0.0-0.4) % Neut % (Auto) 68.0 (45-73) % Lymph % (Auto) 9.9 L (20-40) % [place] % (Auto) 20.3 H (2-11) % Eos % (Auto) 1.2 (0-4) % Baso % (Auto) 0.3 (0-2) % Lymph # (Auto) 1.0 L (1.2-4.9) X10*3/uL [place] # (Auto) 2.0 H (0.1-1.2) X10*3/uL Eos # (Auto) 0.1 (0.0-0.4) X10*3/uL Baso # (Auto) 0.0 (0.0-0.2) X10*3/uL Abs Immat Gran (auto) 0.03 (0.00-0.03) X10*3/uL Absolute Neuts (auto) 6.6 (2.0-8.3) x10*3/uL Absolute Nucleated RBC 0.000 (0.0-0.012) X10*3/uL Nucleated RBC % (auto) 0.0 (0.0-0.2) /100WBC Smear Tech's Comments VERIFIED PT 31.1 H (10.0-13.1) SEC INR 2.6 H D (0.9-1.1) Sodium 141 (135-145) mmol/L Potassium 4.2 (3.3-5.1) mmol/L Chloride 104 (96-108) mmol/L Carbon Dioxide 24 (22-29) mmol/L Anion Gap 17 (12-20) BUN 13 (9-16) mg/dL Creatinine 0.72 (0.5-1.4) mg/dL Estim Creat Clear Calc 114.9 Estimated GFR > 60 Random Glucose 120 H (60-115) mg/dL Lactic Acid (0.5-2.0) mmol/L Calcium 8.3 L D (8.4-10.2) mg/dL Total Bilirubin 0.9 (0.0-1.0) mg/dL AST 18 (5-37) U/L ALT 23 (0-40) U/L Alkaline Phosphatase 68 (39-117) U/L Troponin I High Sens (<3.5-35.0) ng/L B-Natriuretic Peptide (<100) pg/mL Total Protein 6.2 L (6.5-8.0) g/dL Albumin 3.4 L (3.5-5.0) g/dL Influenza Type A (PCR) (Negative) Influenza Type B (PCR) (Negative) RSV RNA Qual (PCR) (Negative) SARS-CoV-2 RNA (RT-PCR) (Negative) 12/16/21 12/16/21 12/16/21 Range/Units 13:59 22:59 22:59 WBC (4.8-10.8) X10*3/uL RBC (4.60-5.80) X10*6/uL Hgb (14.0-18.0) g/dl Hct (42.0-52.0) % MCV (80.0-98.0) fL MCH (27.0-33.0) pg MCHC (31.0-36.0) g/dl RDW (11.0-16.0) % Plt Count (160-400) X10*3/uL MPV (9.4-12.4) fL Immature Gran % (Auto) (0.0-0.4) % Neut % (Auto) (45-73) % Lymph % (Auto) (20-40) % [place] % (Auto) (2-11) % Eos % (Auto) (0-4) % Baso % (Auto) (0-2) % Lymph # (Auto) (1.2-4.9) X10*3/uL [place] # (Auto) (0.1-1.2) X10*3/uL Eos # (Auto) (0.0-0.4) X10*3/uL Baso # (Auto) (0.0-0.2) X10*3/uL Abs Immat Gran (auto) (0.00-0.03) X10*3/uL Absolute Neuts (auto) (2.0-8.3) x10*3/uL Absolute Nucleated RBC (0.0-0.012) X10*3/uL Nucleated RBC % (auto) (0.0-0.2) /100WBC Smear Tech's Comments PT (10.0-13.1) SEC INR (0.9-1.1) Sodium (135-145) mmol/L Potassium (3.3-5.1) mmol/L Chloride (96-108) mmol/L Carbon Dioxide (22-29) mmol/L Anion Gap (12-20) BUN (9-16) mg/dL Creatinine (0.5-1.4) mg/dL Estim Creat Clear Calc Estimated GFR Random Glucose (60-115) mg/dL Lactic Acid 2.0 (0.5-2.0) mmol/L Calcium (8.4-10.2) mg/dL Total Bilirubin (0.0-1.0) mg/dL AST (5-37) U/L ALT (0-40) U/L Alkaline Phosphatase (39-117) U/L Troponin I High Sens < 3.5 (<3.5-35.0) ng/L B-Natriuretic Peptide 28 (<100) pg/mL Total Protein (6.5-8.0) g/dL Albumin (3.5-5.0) g/dL Influenza Type A (PCR) NEGATIVE (Negative) Influenza Type B (PCR) NEGATIVE (Negative) RSV RNA Qual (PCR) NEGATIVE (Negative) SARS-CoV-2 RNA (RT-PCR) NEGATIVE (Negative) Imaging Data CT of the chest: Radiologist's impression: FINDINGS: LUNGS: Mild biapical emphysema. There are dense regions of opacity in the inferior lingula and basilar left lower lobe, overall more suggestive of atelectasis. There is more extensive opacification of the right lower lobe with air bronchograms which is more suspicious for pneumonia. There is also partial opacification of the right middle lobe with groundglass and dense consolidative opacities. Additional patchy ground glass opacities present in the right upper lobe near the minor fissure.? MEDIASTINUM: Visualized thyroid gland is unremarkable. A few mediastinal lymph nodes measure near the upper limits of normal in size. Cardiac size is within normal limits; no pericardial effusion. Scattered calcification along the aorta.? CORONARY ARTERY CALCIFICATION: Present PLEURA: There is no pleural effusion. No pleural mass or thickening.? AXILLA: No lymphadenopathy.? UPPER ABDOMEN: Numerous hypoattenuating lesions throughout the liver favor cysts. Partially visualized right upper pole renal cyst; no follow-up recommended based on this appearance.? OSSEOUS STRUCTURES: Status post sternotomy. Degenerative changes are noted in the spine.? CT/CT chest wo IV con IMPRESSION: 1.? Dense opacification of the right lower lobe with air bronchograms, suspicious for pneumonia or sequelae of aspiration. Additional patchy opacities in the right middle lobe and right upper lobe are also suspicious for pneumonia. 2.? Dense regions of opacity in the inferior lingula and basilar left lower lobe, more suggestive of atelectasis. 3.? Few mediastinal lymph nodes near the upper limits of normal in size, which may be reactive. 4.? Mild biapical emphysema. 5.? Coronary artery calcifications. Correlation with cardiac risk factors is recommended. Critical Care Time Critical Care Time Critical Care Time: Yes Total Critical Care Time: 60 Attestation: I have personally provided critical care time. Time includes review of lab data, radiology results, discussion with consultants, and monitoring for potential decompensation. Intervention performed as documented. Discharge Plan Discharge Clinical Impression: Pneumonia Patient Disposition: Admitted As Inpatient
--- NOTE | 2021-12-16 22:11 | PC.NURSE ---
Patient ambulated with this RN 40 ft, patient was on RA. O2 Sat dropped to 82% on RA, patient became dyspneic. O2 applied at 3 LPM NC. O2 Sat is 93% on O2 at 3 LPM NC. Dyspnea resolved. Dr. Webster notified.
[2021-12-16 22:14] VITALS: BP 140/84; PULSE 85; RESP 15; RESP 16; TEMP 36.3; O2SAT 95
[2021-12-16 22:19] VITALS: BP 143/68; PULSE 88; RESP 16; TEMP 36.5; O2SAT 93
--- NOTE | 2021-12-16 22:38 | PC.NURSE ---
PT spouse is at bedside. Pt V/S are stable, Pt is on NC 3 L, Pt lungs sounds are clear bilaterally throughout. PT has edema on his lower extremities, left foot +4 with discoloration and + peripheral pulses. Right foot has +1 edema with dark discoloration. PT has dry cough, afribile, and yellow sputum. Pt is a/o x 5. Pt was connected to the telemetry and it shows NSR. will continue to monitor.
[2021-12-16] MEDS: methylPREDNISolone Sod Succ 125 MG/2 ML VIAL IVPUSH (23:00)
--- NOTE | 2021-12-16 23:28 | ECG_ITS ---
Test Reason : SOB Blood Pressure : / mmHG Vent. Rate : 081 BPM Atrial Rate : 083 BPM P-R Int : 144 ms QRS Dur : 136 ms QT Int : 396 ms P-R-T Axes : 060 006 019 degrees QTc Int : 460 ms Normal sinus rhythm Right bundle branch block Abnormal ECG When compared with ECG of 15-JUN-2021 08:49, No significant changes seen Referred By: Humaira Webster Electronically Signed By:CORRINA SHANKAR MD
[2021-12-16 23:30] LABS: B Type Natriuretic Peptide 28 pg/mL (<100); Troponin-I High Sensitivity < 3.5 ng/L (<3.5-35.0)
[2021-12-16] MEDS: levoFLOXacin/D5W 500 MG/100 ML PIGGYBACK 100 MG IV (23:53)
[2021-12-17] VITALS (10 sets, daily range): BP systolic 97–145; BP diastolic 60–74; PULSE 86–119; RESP 20–39; TEMP 36.7–37; O2SAT 92–94
[2021-12-17] MEDS: Albuterol Sulfate (0.083%) 2.5 MG/3 ML VIAL.NEB INHALE (00:55)
[2021-12-17] MEDS: 0.9 % Sodium Chloride 500 ML 300 ML IV (01:24)
--- NOTE | 2021-12-17 01:25 | PC.NURSE ---
Pt IVF are running at 300 ml/ hr d/t pt is retaining fluids.
[2021-12-17] MEDS: cefTRIAXone sodium 1 GM in 0.9 % Sodium Chloride 50 ML IV (03:46)
[2021-12-17] MEDS: methylPREDNISolone Sod Succ 40 MG/ML VIAL IVPUSH ×2 (03:50→15:16)
[2021-12-17] MEDS: Heparin Sodium,Porcine 5,000 UNIT/ML VIAL 5000 UNIT SUBCUT (03:53)
--- NOTE | 2021-12-17 04:01 | PC.NURSE ---
Pt is on CPAP, pt V/S are tsable, pt is Tachy on the telemtry with sinus Tachy and trigeminal PVC. Pt meds were administered as order. Pt has IV line on his left wrist 20G.
[2021-12-17] MEDS: Azithromycin 500 MG in 0.9 % Sodium Chloride 250 ML 125 MG IV (04:32)
[2021-12-17 06:02] LABS: Basophils Percent Auto 0.1 % (0-2); Hematocrit 37.6 % (42.0-52.0); Hemoglobin 12.4 g/dl (14.0-18.0); Imm Gran Abs Auto 0.03 X10*3/uL (0.00-0.03); Imm Gran Pct Auto 0.4 % (0.0-0.4); Lymphocytes Absolute Auto 0.4 X10*3/uL (1.2-4.9); Lymphocytes Percent Auto 4.9 % (20-40); MANUAL DIFF FLAG SCAN; Mean Corpuscular Hemoglobin 30.2 pg (27.0-33.0); Mean Corpuscular Volume 91.5 fL (80.0-98.0); Mean Platelet Volume 10.2 fL (9.4-12.4); Monocytes Absolute Auto 0.1 X10*3/uL (0.1-1.2); Monocytes Percent Auto 1.2 % (2-11); Neutrophils Absolute Auto 7.8 x10*3/uL (2.0-8.3); Neutrophils Percent Auto 93.4 % (45-73); Platelet Count 167 X10*3/uL (160-400); Red Blood Count 4.11 X10*6/uL (4.60-5.80); SCAN SMEAR FLAG 1; White Blood Count 8.4 X10*3/uL (4.8-10.8)
[2021-12-17 06:33] LABS: Anion Gap 15 (12-20); Blood Urea Nitrogen 13 mg/dL (9-16); Calcium 8.5 mg/dL (8.4-10.2); Carbon Dioxide 26 mmol/L (22-29); Chloride 105 mmol/L (96-108); Creatinine Clr Calc Pharmacy 123.5; Estimated Glomerular Filt Rate > 60; Glucose Random 129 mg/dL (60-115); Potassium 4.1 mmol/L (3.3-5.1); Sodium 142 mmol/L (135-145)
[2021-12-17 06:37] LABS: SLIDE REVIEW VERIFIED
--- NOTE | 2021-12-17 06:45 | P.HPHOSP_ITS ---
History of Present Illness Date of Service: 12/17/21 Chief Complaint: SOB This is a 76-year-old male with past medical history of CHF with preserved ejection fraction, COPD, sleep apnea on CPAP at night, history of DVT on chronic anticoagulation who presents to the hospital with complaints of shortness of breath. Patient reports that he just returned from [place] where he was treated for the flu. He reports that he was in the hospital for 4 days but was not started on antibiotics. He returns from [place] on . He reports that he continues to have significant shortness of breath, cough, sputum production, as well as orthopnea and PND. He does have chronic swelling on his right due to history of DVT but he also has evidence of swelling on his left leg that started few days ago. He reports no chest pain, no palpitations, denies any abdominal pain nausea or vomiting, no diarrhea constipation, no urinary symptoms. Reports compliance with his Lasix. On arrival to the ED patient hemodynamically stable with O2 of 91% dropping to 82% on ambulation Labs are significant for WBC count of 9.8, hemoglobin of 12, hematocrit 37.3, INR of 2.6, BNP of 28, Chest CT reveals a dense opacification of the right lower lobe with air bronchograms suspicious for pneumonia, additional patchy opacities in the right middle lobe and right upper lobe were also suspicious for pneumonia. There is also dense region of opacity in the inferior lingula and basilar left lower lobe. Few mediastinal lymph nodes near the upper limits of normal. Biapical emphysema, RSV, influenza and COVID negative Review of Systems Review of Systems: Yes all other systems are reviewed and are negative [facility] Medical History (HFpEF) heart failure with preserved ejection fraction COPD (chronic obstructive pulmonary disease) Cough Lymphedema of both lower extremities Obesity (BMI 35.0-39.9 without comorbidity) DEREK on CPAP Paroxysmal atrial fibrillation Varicose veins of right lower extremity with inflammation Family History Father No problems noted. Mother No problems noted. Sister No problems noted. Sister No problems noted. Son No problems noted. Daughter No problems noted. Surgical History History of appendectomy Social History Household Members: Spouse Housing: House Do you presently have visiting nurse or other home services: Yes Alcohol intake: current Alcohol intake frequency: a few times a week Alcohol type: beer Patient Tobacco Use Status: Former Tobacco user Smoked in Last 30 Days: No Use of substances other than those prescribed or required for medical reasons: No Advance Directives: No Advance Directives Information Provided: No service: Yes Current occupational status: retired Meds Allergies Allergy/AdvReac Type Severity Reaction Status Date / Time amoxicillin [From Augmentin] AdvReac Intermediate Nausea and Verified 12/14/21 15:05 Vomiting, dizziness clavulanic acid AdvReac Intermediate Nausea and Verified 12/14/21 15:05 [From Augmentin] Vomiting, dizziness Active Medications: Current Medications Acetaminophen (Acetaminophen 325 Mg Tablet) 650 mg PO Q6H PRN PRN Reason: Pain, Mild (Pain Scale 1-3) Albuterol/Ipratropium (Albuterol/Iprat 2.5/0.5mg 3 Ml Ampul.Neb) 3 ml INHALE RQ4H PRN PRN Reason: Shortness of Breath/Wheezing Albuterol/Ipratropium (Albuterol/Iprat 2.5/0.5mg 3 Ml Ampul.Neb) 3 ml INHALE RQ4H WHILE AWAKE SOUMYA Docusate Sodium (Docusate Sodium 100 Mg Capsule) 100 mg PO DAILY PRN PRN Reason: Constipation Heparin Sodium (Porcine) (Heparin Sodium,Porcine 5,000 Unit/Ml Vial) 5,000 unit SUBCUT Q12H [facility] Last Admin: 12/17/21 03:53 Dose: 5,000 unit Ceftriaxone Sodium 1 gm/ (Sodium Chloride) 50 mls @ 100 mls/hr IV Q24H [facility] Last Infusion: 12/17/21 04:16 Dose: Infused Azithromycin 500 mg/ Sodium (Chloride) 250 mls @ 125 mls/hr IV Q24H [facility] Last Admin: 12/17/21 04:32 Dose: 125 mls/hr Methylprednisolone Sodium Succinate (Methylprednisolone Sod Succ 40 Mg/Ml Vial) 40 mg IVPUSH Q12H [facility] Last Admin: 12/17/21 03:50 Dose: 40 mg Ondansetron HCl (Ondansetron Hcl 4 Mg/2 Ml Vial) 4 mg IVPUSH Q8H PRN PRN Reason: Nausea and Vomiting Sodium Chloride (0.9 % Sodium Chloride Flush 3 Ml Syringe) 3 ml IVFLUSH QSHI Home Medications Medication Instructions Recorded Confirmed Last Taken Type albuterol sulfate 90 mcg/actuation 2 puff inhalation QID PRN 12/08/19 12/14/21 Unknown History aerosol inhaler Shortness Of Breath atorvastatin 20 mg tablet 20 mg PO DAILY 12/08/19 12/14/21 06/15/21 History diltiazem HCl 120 mg 120 mg PO DAILY 12/08/19 12/14/21 06/15/21 History capsule,extended release 24 hr docusate sodium 100 mg capsule 200 mg PO DAILY 12/08/19 12/14/21 06/15/21 History sennosides 8.6 mg capsule (senna) 8.6 mg PO BEDTIME 12/08/19 12/14/21 06/14/21 History furosemide 40 mg tablet 40 mg PO BID 02/02/20 12/14/21 06/15/21 History flecainide 50 mg tablet 50 mg PO BID 10/27/20 12/14/21 06/15/21 History potassium chloride 10 mEq 10 meq PO DAILY 12/15/20 12/14/21 06/15/21 History tablet,extended release multivitamin 1 tab PO DAILY 06/15/21 12/14/21 06/15/21 History warfarin 5 mg tablet 5 mg PO SUMOWEFR@1800 06/15/21 12/14/21 06/15/21 History warfarin 5 mg tablet 7.5 mg PO TUTHSA@1800 06/15/21 12/14/21 06/15/21 History Physical Exam Vital Signs and Narrative: Vital Signs: Last Vital Signs Temp 98.6 F 12/17/21 04:00 Pulse 102 H 12/17/21 04:00 Resp 22 H 12/17/21 04:00 BP 117/60 12/17/21 04:00 Pulse Ox 93 12/17/21 04:00 O2 Del Method 12/17/21 04:00 O2 Flow Rate 4 12/17/21 01:11 ED T BMI result Body Mass Index 38.9 Const: General: cooperative and no acute distress Orientation/consciousness: patient oriented x3 Eyes: General: appearance normal, both eyes and all related structures Resp: Other: Bilateral crackles Effort & Inspection: normal respiratory effort Cardio: Rate: regular rate Rhythm: regular rhythm GI: Palpation (GI): Soft to palpation Auscultation: normal bowel sounds Skin: General skin exam: no rashes or lesions noted Neuro: General: patient oriented x3 Cognition (Neuro): normal cognition Extrem: Other: Bilateral 2+ pitting edema lower extremities General: Yes normal to inspection Results Labs CBC and Chem 7: 12/17/21 05:27 12/17/21 05:27 Labs: Laboratory Results - last 24 hr 12/16/21 12/16/21 12/16/21 13:59 13:59 13:59 MCV 91.0 MCH 29.3 MCHC 32.2 RDW 15.3 Plt Count 126 L D MPV 10.7 Immature Gran % (Auto) 0.3 Neut % (Auto) 68.0 Lymph % (Auto) 9.9 L Edgar % (Auto) 20.3 H Eos % (Auto) 1.2 Baso % (Auto) 0.3 Lymph # (Auto) 1.0 L Edgar # (Auto) 2.0 H Eos # (Auto) 0.1 Baso # (Auto) 0.0 Abs Immat Gran (auto) 0.03 Absolute Neuts (auto) 6.6 Absolute Nucleated RBC 0.000 Nucleated RBC % (auto) 0.0 Smear Tech's Comments VERIFIED PT 31.1 H INR 2.6 H D Anion Gap 17 Estim Creat Clear Calc 114.9 Estimated GFR > 60 Random Glucose 120 H Lactic Acid Calcium 8.3 L D Total Bilirubin 0.9 AST 18 ALT 23 Alkaline Phosphatase 68 Troponin I High Sens B-Natriuretic Peptide Total Protein 6.2 L Albumin 3.4 L Influenza Type A (PCR) Influenza Type B (PCR) RSV RNA Qual (PCR) SARS-CoV-2 RNA (RT-PCR) 12/16/21 12/16/21 12/16/21 13:59 22:59 22:59 MCV MCH MCHC RDW Plt Count MPV Immature Gran % (Auto) Neut % (Auto) Lymph % (Auto) Edgar % (Auto) Eos % (Auto) Baso % (Auto) Lymph # (Auto) Edgar # (Auto) Eos # (Auto) Baso # (Auto) Abs Immat Gran (auto) Absolute Neuts (auto) Absolute Nucleated RBC Nucleated RBC % (auto) Smear Tech's Comments PT INR Anion Gap Estim Creat Clear Calc Estimated GFR Random Glucose Lactic Acid 2.0 Calcium Total Bilirubin AST ALT Alkaline Phosphatase Troponin I High Sens < 3.5 B-Natriuretic Peptide 28 Total Protein Albumin Influenza Type A (PCR) NEGATIVE Influenza Type B (PCR) NEGATIVE RSV RNA Qual (PCR) NEGATIVE SARS-CoV-2 RNA (RT-PCR) NEGATIVE 12/17/21 12/17/21 05:27 05:27 MCV 91.5 MCH 30.2 MCHC 33.0 RDW 15.0 Plt Count 167 D MPV 10.2 Immature Gran % (Auto) 0.4 Neut % (Auto) 93.4 H Lymph % (Auto) 4.9 L Edgar % (Auto) 1.2 L Eos % (Auto) 0.0 Baso % (Auto) 0.1 Lymph # (Auto) 0.4 L Edgar # (Auto) 0.1 Eos # (Auto) 0.0 Baso # (Auto) 0.0 Abs Immat Gran (auto) 0.03 Absolute Neuts (auto) 7.8 Absolute Nucleated RBC 0.000 Nucleated RBC % (auto) 0.0 Smear Tech's Comments VERIFIED PT INR Anion Gap 15 Estim Creat Clear Calc 123.5 Estimated GFR > 60 Random Glucose 129 H Lactic Acid Calcium 8.5 Total Bilirubin AST ALT Alkaline Phosphatase Troponin I High Sens B-Natriuretic Peptide Total Protein Albumin Influenza Type A (PCR) Influenza Type B (PCR) RSV RNA Qual (PCR) SARS-CoV-2 RNA (RT-PCR) Imaging Radiologist's Impressions: Impressions Chest X-Ray 12/16/21 18:33 IMPRESSION: Mild peribronchial vascular opacities may reflect edema or atypical infection. Probable small bilateral effusions. Chest CT 12/17/21 00:52 IMPRESSION: 1. Dense opacification of the right lower lobe with air bronchograms, suspicious for pneumonia or sequelae of aspiration. Additional patchy opacities in the right middle lobe and right upper lobe are also suspicious for pneumonia. 2. Dense regions of opacity in the inferior lingula and basilar left lower lobe, more suggestive of atelectasis. 3. Few mediastinal lymph nodes near the upper limits of normal in size, which may be reactive. 4. Mild biapical emphysema. 5. Coronary artery calcifications. Correlation with cardiac risk factors is recommended. Assessment and Plan (1) Acute respiratory failure with hypoxia: Status: Acute (2) Pneumonia: Status: Acute (3) Acute exacerbation of chronic obstructive pulmonary disease (COPD): Status: Acute (4) CHF exacerbation: Status: Acute (5) Hypomagnesemia: Status: Acute (6) Hypokalemia: Status: Acute Plan This is a 76-year-old male with past medical history of CHF, COPD presents the hospital with complaints of shortness of breath, cough and sputum production # acute hypoxic respiratory failure - secondary to COPD as well as pneumonia - has cough, sputum production, oxygen 82% on room air on ambulation - will treat with oxygen, treat underlying pneumonia - Solu-Medrol and DuoNeb p.r.n. - continue oxygen as required # pneumonia - with recent hospitalization for influenza - at this time will treat with IV antibiotics - follow cultures - given the findings of right lower consolidations concerning for aspiration will consult speech to rule out aspiration risk # acute COPD exacerbation - cough, sputum production, dyspnea - will treat with Solu-Medrol, DuoNeb - continue oxygen as required # CHF exacerbation - patient has lower extremity edema, orthopnea, PND - will treat with IV Lasix - will consult Cardiology for further recommendation - will hold echocardiograms patient reports # DEREK - continue CPAP at bedtime # electrolyte abnormality - repleted - follow Mag and BMP # history of DVT - continue warfarin - therapeutic INR DVT prophylaxis: Warfarin Given patient's pneumonia requiring IV antibiotics patient will be admitted and required minimum 2 night inpatient hospital stay for further management Quality Stroke Does the patient have a stroke diagnosis?: No VTE Prior VTE?: No VTE Risk Level:: Medical - moderate - high VTE Device Contraindication: Treatment Not Indicated VTE Drug Contraindication: N/A - Med Ordered
[2021-12-17] MEDS: Albuterol/Iprat 2.5/0.5MG 3 ML AMPUL.NEB INHALE ×4 (07:41→20:04)
[2021-12-17 07:52] LABS: Magnesium 1.8 mg/dL (1.6-2.6)
[2021-12-17] MEDS: Doxycycline Hyclate 100 MG in 0.9 % Sodium Chloride 250 ML 166.67 MG IV (08:23)
[2021-12-17] MEDS: Furosemide 40 MG/4 ML VIAL IVPUSH ×2 (08:23→19:28)
[2021-12-17 08:53] LABS: Procalcitonin 0.03 ng/mL
--- NOTE | 2021-12-17 09:30 | PC.NURSE ---
Dr. Stewart at bedside and aware of patients HR
--- NOTE | 2021-12-17 09:40 | PHA.MEDREC ---
Pharmacy Consult ? Medication Reconciliation Pharmacy has completed the medication reconciliation.
--- NOTE | 2021-12-17 10:18 | PHA.MEDREC ---
Pharmacy Consult ? 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
--- NOTE | 2021-12-17 11:26 | PM.EVENT ---
Event Note Date of Service: 12/17/21 Event Note: Day hospitalist update S: dyspnea improved leg edema improved no fever coughing O: Temp Pulse Resp BP Pulse Ox O2 Del Method O2 Flow Rate 98.2 F 102 H 20 145/74 H 94 4 12/17/21 08:15 12/17/21 11:17 12/17/21 11:17 12/17/21 08:22 12/17/21 08:15 12/17/21 08:15 12/17/21 08:15 Gen: in no acute distress HEENT: sclera anicteric, moist mucus membranes Neck: supple Lungs: bilateral inspiratory crackles Heart: regular, tachycardic, no murmurs Abd: soft, non-tender, non-distended Ext: 2+ RLE edema, 1+ LLE edema Skin: warm/well-perfused Neuro: alert and oriented x3, no focal findings Psych: appropriate affect A/P: hospital day#1 76yo M with HFpEF, COPD, hx DVT on warfarin presenting with dyspnea + cough + hypoxia, found to have PNA # multifocal PNA - recent hospitalization in [place] for influenza. continue ceftriaxone + doxycycline but check MRSA swab and if positive broaden to vancomycin. question of aspiration- will request INFECTION CONTROL COORDINATOR consultation. follow BCx. check Legionella + pneumococcal UAGs. trend PCT - steroids as below due to COPD # AHRF - wean O2 as tolerated, currently on 4L # COPD exacerbation - steroids, nebs, O2, ICS/LABA # acute/chronic HFpEF - IV furosemide # hx of DVT - INR therapeutic, continue warfarin at home dosages # pAF - continue flecainide - continue diltiazem - continue warfarin # DEREK - continue CPAP at bedtime # VTE ppx: warfarin In my clinical judgment, the patient requires continued inpatient hospitalization for the following reasons: IV ABX, oxygen supplementation
[2021-12-17] MEDS: dilTIAZem HCL CD 120 MG CAP.ER.DEG PO (13:02)
[2021-12-17] MEDS: Multivitamin TABLET 1 TAB PO (13:02)
[2021-12-17] MEDS: Atorvastatin Calcium 20 MG TABLET PO (13:08)
[2021-12-17 13:23] LABS: INTERNATIONAL NORM RATIO 2.3 (0.9-1.1); Prothrombin Time 27.5 SEC (10.0-13.1)
[2021-12-17 13:44] LABS: Adenovirus PCR Not Detected (Not Detect.); Bordetella parapertussis PCR Not Detected (Not Detect.); Bordetella pertussis PCR Not Detected (Not Detect.); Chlamydia pneumoniae PCR Not Detected (Not Detect.); Coronavirus 229E PCR Not Detected (Not Detect.); Coronavirus HKU1 PCR Not Detected (Not Detect.); Coronavirus NL63 PCR Not Detected (Not Detect.); Coronavirus OC43 PCR Not Detected (Not Detect.); Human metapneumovirus PCR Not Detected (Not Detect.); Influenza A PCR Not Detected (Not Detect.); Influenza B PCR Not Detected (Not Detect.); Mycoplasma pneumoniae PCR Not Detected (Not Detect.); Parainfluenza 1 PCR Not Detected (Not Detect.); Parainfluenza 2 PCR Not Detected (Not Detect.); Parainfluenza 3 PCR Not Detected (Not Detect.); Parainfluenza 4 PCR Not Detected (Not Detect.); RSV PCR Not Detected (Not Detect.); Rhino/Enterovirus PCR Not Detected (Not Detect.); SARS-CoV-2 PCR Not Detected (Not Detect.)
[2021-12-17 13:57] LABS: MRSA Nasal PCR NEGATIVE (Negative); SA Nasal PCR NEGATIVE (Negative)
[2021-12-17] MEDS: Warfarin Sodium 5 MG TABLET PO (19:28)
[2021-12-17] MEDS: Doxycycline Hyclate 100 MG in 0.9 % Sodium Chloride 250 ML 166 MG IV (19:28)
[2021-12-17] MEDS: Flecainide Acetate 50 MG TABLET PO (21:35)
[2021-12-17] MEDS: Throat Lozenge, Medicated LOZENGE 1 LOZENGE MUCOUS MEM (21:35)
[2021-12-17] MEDS: Sennosides 8.6 MG TABLET 25.8 MG PO (21:35)
[2021-12-18] VITALS (12 sets, daily range): BP systolic 110–132; BP diastolic 58–76; PULSE 93–110; RESP 16–20; TEMP 36.2–37; O2SAT 90–96
[2021-12-18] MEDS: 0.9 % Sodium Chloride Flush 3 ML SYRINGE IVFLUSH ×4 (00:07→23:41)
--- NOTE | 2021-12-18 00:11 | PC.NURSE ---
care of patient assumed at 2300. patient found asleep in stretcher and awakens for vitals. he is alert, oriented x3, +wet cough noted. hx COPD (patient reports no home O2) and was recently hospitalized in [facility] with the flu. +pitting edema to bilteral feet/lower legs noted, patient states he takes a lasix pill daily. he is wearing CPAP for sleep (wears CPAP at home). O2 93% on cpap when patient sits himself up on the side of the bed independently . he denies chest pain or discomfort. call khalil is within reach. patient assisted with repositioning for comfort.
[2021-12-18] MEDS: methylPREDNISolone Sod Succ 40 MG/ML VIAL IVPUSH (02:23)
[2021-12-18] MEDS: cefTRIAXone sodium 1 GM in 0.9 % Sodium Chloride 50 ML IV (02:23)
[2021-12-18] MEDS: Throat Lozenge, Medicated LOZENGE 1 LOZENGE MUCOUS MEM ×4 (02:23→21:26)
[2021-12-18 07:23] LABS: INTERNATIONAL NORM RATIO 2.1 (0.9-1.1); Prothrombin Time 24.9 SEC (10.0-13.1)
[2021-12-18 07:38] LABS: B Type Natriuretic Peptide 89 pg/mL (<100)
[2021-12-18 07:38] LABS: Glucose, Whole Blood 127 mg/dL (60-115)
[2021-12-18 07:39] LABS: Anion Gap 15 (12-20); Blood Urea Nitrogen 22 mg/dL (9-16); Calcium 8.9 mg/dL (8.4-10.2); Carbon Dioxide 29 mmol/L (22-29); Chloride 104 mmol/L (96-108); Creatinine Clr Calc Pharmacy 110.3; Estimated Glomerular Filt Rate > 60; Glucose Random 117 mg/dL (60-115); Potassium 4.2 mmol/L (3.3-5.1); Sodium 144 mmol/L (135-145)
[2021-12-18] MEDS: Atorvastatin Calcium 20 MG TABLET PO (08:36)
[2021-12-18] MEDS: Multivitamin TABLET 1 TAB PO (08:36)
[2021-12-18] MEDS: Flecainide Acetate 50 MG TABLET PO ×2 (08:36→21:26)
[2021-12-18] MEDS: dilTIAZem HCL CD 120 MG CAP.ER.DEG PO (08:36)
[2021-12-18] MEDS: Doxycycline Hyclate 100 MG in 0.9 % Sodium Chloride 250 ML 166.67 MG IV ×2 (08:37→21:25)
[2021-12-18] MEDS: Furosemide 40 MG/4 ML VIAL IVPUSH ×2 (08:37→17:05)
--- NOTE | 2021-12-18 10:05 | HO.PM.IMPN ---
Subjective Subjective Date of Service: 12/18/21 Interval History: afebrile coughing on 2L O2 legs still very swollen Review of Systems Review of Systems: Yes all other systems are reviewed and are negative Physical Exam Vital Signs: Vital Signs: Last Vital Signs Temp 98.1 F 12/18/21 07:50 Pulse 95 12/18/21 07:50 Resp 17 12/18/21 07:50 BP 123/70 12/18/21 07:50 Pulse Ox 91 L 12/18/21 07:50 O2 Del Method 12/18/21 07:50 O2 Flow Rate 3 12/18/21 07:50 BMI result Body Mass Index 38.9 Gen: in no acute distress HEENT: sclera anicteric, moist mucus membranes Neck: supple Lungs: bilateral inspiratory crackles at abses Heart: regular, no murmurs Abd: soft, non-tender, non-distended Ext: 2+ RLE edema, 1+ LLE edema Skin: warm/well-perfused Neuro: alert and oriented x3, no focal findings Psych: appropriate affect Objective Data Active Medications Acetaminophen (Acetaminophen 325 Mg Tablet) 650 mg PO Q6H PRN PRN Reason: Pain, Mild (Pain Scale 1-3) Albuterol/Ipratropium (Albuterol/Iprat 2.5/0.5mg 3 Ml Ampul.Neb) 3 ml INHALE RQ4H PRN PRN Reason: Shortness of Breath/Wheezing Albuterol/Ipratropium (Albuterol/Iprat 2.5/0.5mg 3 Ml Ampul.Neb) 3 ml INHALE RQ4H WHILE AWAKE [facility] Last Admin: 12/18/21 08:33 Dose: Not Given Documented By: ZAIDA Non-Admin Reason: Patient Refused Atorvastatin Calcium (Atorvastatin Calcium 20 Mg Tablet) 20 mg PO DAILY [facility] Last Admin: 12/18/21 08:36 Dose: 20 mg Documented By: ROLF Benzocaine (Throat Lozenge, Medicated Lozenge) 1 lozenge MUCOUS MEM Q2H PRN PRN Reason: Sore Throat Last Admin: 12/18/21 04:21 Dose: 1 lozenge Documented By: REINIER Diltiazem HCl (Diltiazem Hcl Cd 120 Mg Cap.Er.Deg) 120 mg PO DAILY [facility]; Protocol Last Admin: 12/18/21 08:36 Dose: 120 mg Documented By: ROLF Docusate Sodium (Docusate Sodium 100 Mg Capsule) 100 mg PO DAILY PRN PRN Reason: Constipation Flecainide Acetate (Flecainide Acetate 50 Mg Tablet) 50 mg PO BID [facility] Last Admin: 12/18/21 08:36 Dose: 50 mg Documented By: ROLF Fluticasone/Vilanterol (Fluticasone/Vilanterol 200/25 Blst.W.Dev) 1 puff INHALE RDAILY [facility] Last Admin: 12/18/21 08:34 Dose: Not Given Documented By: ZAIDA Non-Admin Reason: Patient Refused Furosemide (Furosemide 40 Mg/4 Ml Vial) 40 mg IVPUSH BID@0900,1800 [facility]; Protocol Last Admin: 12/18/21 08:37 Dose: 40 mg Documented By: ROLF Guaifenesin/Dextromethorphan (Guaifenesin Dm 100/10/5 Ml 5 Ml Syrup) 5 ml PO Q4H PRN PRN Reason: cough Ceftriaxone Sodium 1 gm/ (Sodium Chloride) 50 mls @ 100 mls/hr IV Q24H [facility] Last Infusion: 12/18/21 03:30 Dose: 0 mls/hr Documented By: REINIER Doxycycline Hyclate 100 mg/ (Sodium Chloride) 250 mls @ 166.67 mls/hr IV Q12H [facility] Last Admin: 12/18/21 08:37 Dose: 166.67 mls/hr Documented By: ROLF Methylprednisolone Sodium Succinate (Methylprednisolone Sod Succ 40 Mg/Ml Vial) 40 mg IVPUSH Q24H [facility] Multivitamins/Vitamin C (Multivitamin Tablet) 1 tab PO DAILY [facility] Last Admin: 12/18/21 08:36 Dose: 1 tab Documented By: ROLF Ondansetron HCl (Ondansetron Hcl 4 Mg/2 Ml Vial) 4 mg IVPUSH Q8H PRN PRN Reason: Nausea and Vomiting Potassium Chloride (Potassium Chloride Er 10 Meq Capsule.Er) 10 meq PO DAILY [facility] Last Admin: 12/18/21 08:36 Dose: 10 meq Documented By: ROLF Senna (Sennosides 8.6 Mg Tablet) 25.8 mg PO BEDTIME [facility] Last Admin: 12/17/21 21:35 Dose: 25.8 mg Documented By: VANI Sodium Chloride (0.9 % Sodium Chloride Flush 3 Ml Syringe) 3 ml IVFLUSH QSHIFT [facility] Last Admin: 12/18/21 08:41 Dose: 3 ml Documented By: ROLF Warfarin Sodium (Warfarin Sodium 5 Mg Tablet) 5 mg PO SUMOWEFR@1800 [facility] Last Admin: 12/17/21 19:28 Dose: 5 mg Documented By: VANI Warfarin Sodium (Warfarin Sodium 7.5 Mg Tablet) 7.5 mg PO TUTHSA@1800 [facility] Labs CBC & Chem 7: 12/17/21 05:27 12/18/21 06:52 Labs: Laboratory Results - last 24 hr 12/17/21 12/17/21 12/17/21 12:14 13:01 Unknown PT 27.5 H INR 2.3 H Anion Gap Estim Creat Clear Calc Estimated GFR POC Glucose Random Glucose Calcium Magnesium B-Natriuretic Peptide Nasal Screen MRSA (PCR) NEGATIVE Nasal S. aureus Screen NEGATIVE Nasal MRSA/S.aureus Interp SEE NOTE Respiratory Panel Martinez See note Adenovirus (Rapid PCR) Not Detected B.pert (TEM-PCR) Not Detected B.parapertussis DNA PCR Not Detected C. pneumoniae DNA (PCR) Not Detected Coronavirus OC43 (PCR) Not Detected Coronavirus HKU1 (PCR) Not Detected Coronavirus 229E (PCR) Not Detected Coronavirus NL63 (PCR) Not Detected Human Metapneumovir PCR Not Detected Influenza A (RT-PCR) Not Detected Influenza B (RT-PCR) Not Detected M. pneumoniae (PCR) Not Detected Parainfluenza 1 (PCR) Not Detected Parainfluenza 2 (PCR) Not Detected Parainfluenza 3 (PCR) Not Detected Parainfluenza 4 (PCR) Not Detected RSV (PCR) Not Detected Entero/Rhino (PCR) Not Detected SARS-CoV-2 RNA (RT-PCR) Not Detected 12/18/21 12/18/21 12/18/21 06:52 06:52 06:52 PT 24.9 H INR 2.1 H Anion Gap 15 Estim Creat Clear Calc 110.3 Estimated GFR > 60 POC Glucose Random Glucose 117 H Calcium 8.9 Magnesium 2.0 B-Natriuretic Peptide 89 Nasal Screen MRSA (PCR) Nasal S. aureus Screen Nasal MRSA/S.aureus Interp Respiratory Panel Martinez Adenovirus (Rapid PCR) B.pert (TEM-PCR) B.parapertussis DNA PCR C. pneumoniae DNA (PCR) Coronavirus OC43 (PCR) Coronavirus HKU1 (PCR) Coronavirus 229E (PCR) Coronavirus NL63 (PCR) Human Metapneumovir PCR Influenza A (RT-PCR) Influenza B (RT-PCR) M. pneumoniae (PCR) Parainfluenza 1 (PCR) Parainfluenza 2 (PCR) Parainfluenza 3 (PCR) Parainfluenza 4 (PCR) RSV (PCR) Entero/Rhino (PCR) SARS-CoV-2 RNA (RT-PCR) 12/18/21 07:24 PT INR Anion Gap Estim Creat Clear Calc Estimated GFR POC Glucose 127 H Random Glucose Calcium Magnesium B-Natriuretic Peptide Nasal Screen MRSA (PCR) Nasal S. aureus Screen Nasal MRSA/S.aureus Interp Respiratory Panel [place] Adenovirus (Rapid PCR) B.pert (TEM-PCR) B.parapertussis DNA PCR C. pneumoniae DNA (PCR) Coronavirus OC43 (PCR) Coronavirus HKU1 (PCR) Coronavirus 229E (PCR) Coronavirus NL63 (PCR) Human Metapneumovir PCR Influenza A (RT-PCR) Influenza B (RT-PCR) M. pneumoniae (PCR) Parainfluenza 1 (PCR) Parainfluenza 2 (PCR) Parainfluenza 3 (PCR) Parainfluenza 4 (PCR) RSV (PCR) Entero/Rhino (PCR) SARS-CoV-2 RNA (RT-PCR) Microbiology Microbiology Results: Microbiology 12/16/21 23:26 Blood Culture - Preliminary Blood - Venous No growth after 24 hours. 12/16/21 23:26 Blood Culture - Preliminary Blood - Venous No growth after 24 hours. Assessment and Plan (1) Pneumonia: Status: Acute Plan hospital day#2 76yo M with HFpEF, COPD, hx DVT on warfarin presenting with dyspnea + cough + hypoxia, found to have PNA # multifocal PNA - recent hospitalization in [place] for influenza.? continue ceftriaxone + doxycycline d#2. MRSA swab negative.? HEALTH INFORMATICS ADVISOR evaluation to assess for aspiration. follow BCx.? Legionella + pneumococcal UAGs pending. trend PCT - steroids as below due to COPD # AHRF - wean O2 as tolerated, currently on?2L, improving # COPD exacerbation - continue steroids, nebs, supplemental O2, ICS/LABA controller inhaler # acute/chronic HFpEF - continue IV furosemide # hx of DVT - INR therapeutic, continue warfarin at home dosages # pAF - continue flecainide - continue diltiazem - continue warfarin # DEREK - continue CPAP at bedtime # VTE ppx: warfarin # dispo: PT consult In my clinical judgment, the patient requires continued inpatient hospitalization for the following reasons: IV antibiotics, supplemental O2, IV diuresis Quality Stroke Does the patient have a stroke diagnosis?: No VTE Prior VTE?: No VTE Risk Level:: Medical - moderate - high VTE Device Contraindication: Treatment Not Indicated VTE Drug Contraindication: N/A - Med Ordered
--- NOTE | 2021-12-18 10:09 | MHC.CM.PN ---
IMM 12/18/21, EMR REVIEWED, CM MET W/PT WHO IS A&O, PT REPORTS HE LIVES W/HIS , USES A NEBULIZER AND CPAP ONLY DME, DENIES HOME SERVICES AND REPORTS HIS ASSISTS W/EVERYTHING HE NEEDS, PT DECLINES NEED FOR VNA/HOME SERVICES AT THIS TIME, PT VERIFIES PCP IS AVELINO KIRKPATRICK W/COLLEEN IN [place], HCP VERIFIED AND ON FILE FROM PREVIOUS VISIT AND [employer] X[facility]. ANTIC PT WILL D/C W/NO SERVICES AND FAMILY TO TRANSPORT WHEN MEDICALLY CLEAR.
[2021-12-18] MEDS: Albuterol/Iprat 2.5/0.5MG 3 ML AMPUL.NEB INHALE ×4 (11:19→23:43)
--- NOTE | 2021-12-18 11:22 | MHC.SL.SWA ---
Speech Pathologist Impression: Risk of aspiration Risk of Aspiration Due to: History of Pneumonia Dysphasia Diet Status: No Change Liquid Consistency and Strategies for Safe Swallow: Liquid Intake Recommendation: Thin Liquid Intake Strategies: Small Sips Solid Food Consistency: Dietary Recommendations: Regular Oral Medication Intake: Whole with Puree Please contact the pharmacy regarding appropriate crushable or liquid drug formulations that are available whenever modified delivery is recommended. Compensatory Strategies and Precautions to be Taken for Safe Swallow: Sitting Upright (90 deg) Double Swallow Small Bites and Sips Alternate Liquids/Solids Rate of Ingestion Change Supervision While Eating and Drinking for Safe Swallow: None Needed Swallowing Recommended Treatments: Compens. Strategy Educat. Recommendation for Speech: Inpatient Speech Therapy Comment: SENIOR CLINICAL RESEARCH ASSOCIATE to f/u 1-2x [place] Clinican/Clinical Fellow: No Supervisory Statement: I have reviewed and agree with the student/clinical fellow's documentation: N/A Speech Language Pathologist: Lashay Marie M.A., CCC-SENIOR CLINICAL RESEARCH ASSOCIATE
[2021-12-18] MEDS: guaiFENesin DM 100/10/5 ML 5 ML SYRUP PO ×3 (12:31→21:26)
[2021-12-18] MEDS: Warfarin Sodium 5 MG TABLET PO (17:05)
[2021-12-18] MEDS: Sennosides 8.6 MG TABLET 25.8 MG PO (21:26)
[2021-12-19] VITALS (12 sets, daily range): BP systolic 113–132; BP diastolic 60–89; PULSE 80–102; RESP 16–20; TEMP 36.3–37.2; O2SAT 89–95
[2021-12-19] MEDS: Throat Lozenge, Medicated LOZENGE 1 LOZENGE MUCOUS MEM ×3 (01:00→19:31)
[2021-12-19] MEDS: cefTRIAXone sodium 1 GM in 0.9 % Sodium Chloride 50 ML IV (03:06)
[2021-12-19] MEDS: methylPREDNISolone Sod Succ 40 MG/ML VIAL IVPUSH (05:25)
[2021-12-19 05:52] LABS: INTERNATIONAL NORM RATIO 2.7 (0.9-1.1)
[2021-12-19] MEDS: Doxycycline Hyclate 100 MG in 0.9 % Sodium Chloride 250 ML 166.67 MG IV ×2 (07:41→20:27)
[2021-12-19] MEDS: Flecainide Acetate 50 MG TABLET PO ×2 (07:42→21:05)
[2021-12-19] MEDS: dilTIAZem HCL CD 120 MG CAP.ER.DEG PO (07:43)
[2021-12-19] MEDS: guaiFENesin DM 100/10/5 ML 5 ML SYRUP PO (07:43)
[2021-12-19] MEDS: Furosemide 40 MG/4 ML VIAL IVPUSH ×2 (07:43→19:25)
[2021-12-19] MEDS: 0.9 % Sodium Chloride Flush 3 ML SYRINGE IVFLUSH ×2 (07:44→18:03)
[2021-12-19] MEDS: Multivitamin TABLET 1 TAB PO (07:44)
[2021-12-19] MEDS: Atorvastatin Calcium 20 MG TABLET PO (07:44)
[2021-12-19] MEDS: Albuterol/Iprat 2.5/0.5MG 3 ML AMPUL.NEB INHALE ×2 (09:50→12:45)
[2021-12-19] MEDS: Fluticasone/Vilanterol 200/25 BLST.W.DEV 1 PUFF INHALE (09:50)
[2021-12-19 10:04] LABS: Procalcitonin 0.03 ng/mL
--- NOTE | 2021-12-19 10:21 | HO.PM.IMPN ---
Subjective Subjective Date of Service: 12/19/21 Review of Systems , COPD Still with some shortness breath ambulation coughing Physical Exam Vital Signs: Vital Signs: Last Vital Signs Temp 97.7 F 12/19/21 07:13 Pulse 90 12/19/21 09:52 Resp 18 12/19/21 09:52 BP 119/61 12/19/21 07:13 Pulse Ox 92 12/19/21 07:13 O2 Del Method 12/19/21 07:13 O2 Flow Rate 2 12/19/21 07:13 BMI result Body Mass Index 38.9 Appearing in no acute distress lung sounds are clear to auscultation heart regular rate rhythm, clear S1, S2 positive bowel sounds, abdomen is soft, nontender neuro patient is alert x3, no focal deficits Objective Data Active Medications Acetaminophen (Acetaminophen 325 Mg Tablet) 650 mg PO Q6H PRN PRN Reason: Pain, Mild (Pain Scale 1-3) Albuterol/Ipratropium (Albuterol/Iprat 2.5/0.5mg 3 Ml Ampul.Neb) 3 ml INHALE RQ4H PRN PRN Reason: Shortness of Breath/Wheezing Last Admin: 12/18/21 23:43 Dose: 3 ml Documented By: DAVIS Albuterol/Ipratropium (Albuterol/Iprat 2.5/0.5mg 3 Ml Ampul.Neb) 3 ml INHALE RQ4H WHILE AWAKE [facility] Last Admin: 12/19/21 09:50 Dose: 3 ml Documented By: CHIN Atorvastatin Calcium (Atorvastatin Calcium 20 Mg Tablet) 20 mg PO DAILY [facility] Last Admin: 12/19/21 07:44 Dose: 20 mg Documented By: BASIL Benzocaine (Throat Lozenge, Medicated Lozenge) 1 lozenge MUCOUS MEM Q2H PRN PRN Reason: Sore Throat Last Admin: 12/19/21 07:44 Dose: 1 lozenge Documented By: BASIL Diltiazem HCl (Diltiazem Hcl Cd 120 Mg Cap.Er.Deg) 120 mg PO DAILY [facility]; Protocol Last Admin: 12/19/21 07:43 Dose: 120 mg Documented By: BASIL Docusate Sodium (Docusate Sodium 100 Mg Capsule) 100 mg PO DAILY PRN PRN Reason: Constipation Flecainide Acetate (Flecainide Acetate 50 Mg Tablet) 50 mg PO BID [facility] Last Admin: 12/19/21 07:42 Dose: 50 mg Documented By: BASIL Fluticasone/Vilanterol (Fluticasone/Vilanterol 200/25 Blst.W.Dev) 1 puff INHALE RDAILY [facility] Last Admin: 12/19/21 09:50 Dose: 1 puff Documented By: CHIN Furosemide (Furosemide 40 Mg/4 Ml Vial) 40 mg IVPUSH BID@0900,1800 [facility]; Protocol Last Admin: 12/19/21 07:43 Dose: 40 mg Documented By: BASIL Guaifenesin/Dextromethorphan (Guaifenesin Dm 100/10/5 Ml 5 Ml Syrup) 5 ml PO Q4H PRN PRN Reason: cough Last Admin: 12/19/21 07:43 Dose: 5 ml Documented By: BASIL Ceftriaxone Sodium 1 gm/ (Sodium Chloride) 50 mls @ 100 mls/hr IV Q24H [facility] Last Infusion: 12/19/21 03:36 Dose: 0 mls/hr Documented By: RACHELE Doxycycline Hyclate 100 mg/ (Sodium Chloride) 250 mls @ 166.67 mls/hr IV Q12H [facility] Last Infusion: 12/19/21 09:44 Dose: 0 mls/hr Documented By: BASIL Methylprednisolone Sodium Succinate (Methylprednisolone Sod Succ 40 Mg/Ml Vial) 40 mg IVPUSH Q24H [facility] Last Admin: 12/19/21 05:25 Dose: 40 mg Documented By: RACHELE Multivitamins/Vitamin C (Multivitamin Tablet) 1 tab PO DAILY [facility] Last Admin: 12/19/21 07:44 Dose: 1 tab Documented By: BASIL Ondansetron HCl (Ondansetron Hcl 4 Mg/2 Ml Vial) 4 mg IVPUSH Q8H PRN PRN Reason: Nausea and Vomiting Potassium Chloride (Potassium Chloride Er 10 Meq Capsule.Er) 10 meq PO DAILY [facility] Last Admin: 12/19/21 07:43 Dose: 10 meq Documented By: BASIL Senna (Sennosides 8.6 Mg Tablet) 25.8 mg PO BEDTIME [facility] Last Admin: 12/18/21 21:26 Dose: 25.8 mg Documented By: TERRY Sodium Chloride (0.9 % Sodium Chloride Flush 3 Ml Syringe) 3 ml IVFLUSH QSHIFT [facility] Last Admin: 12/19/21 07:44 Dose: 3 ml Documented By: BASIL Warfarin Sodium (Warfarin Sodium 5 Mg Tablet) 5 mg PO SUMOWEFR@1800 [facility] Last Admin: 12/18/21 17:05 Dose: 5 mg Documented By: ROLF Warfarin Sodium (Warfarin Sodium 7.5 Mg Tablet) 7.5 mg PO TUTHSA@1800 [facility] Labs CBC & Chem 7: 12/17/21 05:27 12/18/21 06:52 Labs: Laboratory Results - last 24 hr 12/19/21 12/19/21 05:22 05:22 PT 32.0 H INR 2.7 H Procalcitonin 0.03 Microbiology Microbiology Results: Microbiology 12/16/21 23:26 Blood Culture - Preliminary Blood - Venous No growth after 48 hours. 12/16/21 23:26 Blood Culture - Preliminary Blood - Venous No growth after 48 hours. Assessment and Plan (1) Pneumonia: Status: Acute (2) CHF exacerbation: Status: Acute Plan 76yo M with HFpEF, COPD, hx DVT on warfarin presenting with dyspnea + cough + hypoxia, found to have PNA Multifocal PNA recent hospitalization in [place] for influenza.? continue ceftriaxone + doxycycline MRSA swab negative.? 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 follow BCx.? steroids as below due to COPD Acute hypoxic respiratory failure secondary to pneumonia and COPD exacerbation Continue oxygen treatment as above Continue steroids, scheduled DuoNebs Acute on chronic heart failure with preserved ejection fraction Continue IV Lasix History of DVT Continue warfarin, check INR daily Paroxysmal atrial fibrillation Continue flecainide, diltiazem and warfarin Obstructive sleep apnea Continue CPAP at bedtime VTE ppx: warfarin Attending Dr. Vasquez Full code In my clinical judgment, the patient requires continued inpatient hospitalization for the following reasons: IV antibiotics, supplemental O2, IV diuresis Quality Stroke Does the patient have a stroke diagnosis?: No VTE Prior VTE?: No VTE Risk Level:: Medical - moderate - high VTE Device Contraindication: Treatment Not Indicated VTE Drug Contraindication: N/A - Med Ordered
--- NOTE | 2021-12-19 11:31 | MHC.SL.SWA ---
Speech Pathologist Impression: Risk of Aspiration Due to: History of Pneumonia Dysphasia Diet Status: Regular Diet with thin liquids, no restrictions. Pills whole with liquid or as preferred. Liquid Consistency and Strategies for Safe Swallow: Liquid Intake Recommendation: Thin Liquid Intake Strategies: Small Sips Solid Food Consistency: Dietary Recommendations: Regular Additional Modifications to Solid Foods: Oral Medication Intake: Whole with Liquid Please contact the pharmacy regarding appropriate crushable or liquid drug formulations that are available whenever modified delivery is recommended. Compensatory Strategies and Precautions to be Taken for Safe Swallow: Sitting Upright (90 deg) Small Bites and Sips Alternate Liquids/Solids Supervision While Eating and Drinking for Safe Swallow: None Needed Foods to Avoid: Swallowing Recommended Treatments: Compens. Strategy Educat. Recommendation for Speech: Inpatient Speech Therapy Comment: Pt seen this morning during Breakfast. At on set, patient had eaten most of food on tray, consuming eggs, toast, patel, cereal, fruit, coffee, and juices. Pt. observed taking bite of toast, produced a timely oral phase, timely swallow, no clinical signs of aspiration. Pt observed taking sips of coffee w/ no clinical signs of aspiration. Patient states he has no difficulty with swallowing, enjoyed the meal. Pt. is tolerating diet at his baseline (Regular w/thin liquids) with no indication of dysphagia/impairment/difficulty swallowing. Recommend Patient continue on current diet, D/C speech at this time. Please re-consult if any additional concerns arise. Frequency/Duration: Date Range for Service Req: Timeline to reassess: Rags Laborer Clinican/Clinical Fellow: No Supervisory Statement: I have reviewed and agree with the student/clinical fellow's documentation: N/A Speech Language Pathologist: Erika Rdz M.A., CCC-DIRECTOR OF MANUFACTURING
[2021-12-19] MEDS: Docusate Sodium 100 MG CAPSULE PO (12:24)
[2021-12-19] MEDS: Sennosides 8.6 MG TABLET 25.8 MG PO (19:24)
[2021-12-19] MEDS: Warfarin Sodium 7.5 MG TABLET PO (19:25)
[2021-12-20] VITALS (8 sets, daily range): BP systolic 113–137; BP diastolic 58–88; PULSE 82–107; RESP 17–18; TEMP 36.1–36.8; O2SAT 90–96
[2021-12-20] MEDS: 0.9 % Sodium Chloride Flush 3 ML SYRINGE IVFLUSH ×4 (01:46→20:25)
[2021-12-20 04:11] LABS: Strep Pneumo Ag urine Not Detected (Not Detected)
[2021-12-20] MEDS: methylPREDNISolone Sod Succ 40 MG/ML VIAL IVPUSH (05:12)
[2021-12-20] MEDS: cefTRIAXone sodium 1 GM in 0.9 % Sodium Chloride 50 ML IV (05:12)
[2021-12-20 06:37] LABS: INTERNATIONAL NORM RATIO 3.4 (0.9-1.1); Prothrombin Time 41.5 SEC (10.0-13.1)
[2021-12-20 08:19] LABS: Anion Gap 13 (12-20); Blood Urea Nitrogen 21 mg/dL (9-16); Calcium 8.6 mg/dL (8.4-10.2); Carbon Dioxide 33 mmol/L (22-29); Chloride 101 mmol/L (96-108); Creatinine Clr Calc Pharmacy 116.6; Estimated Glomerular Filt Rate > 60; Glucose Random 100 mg/dL (60-115); Potassium 3.7 mmol/L (3.3-5.1); Sodium 143 mmol/L (135-145)
[2021-12-20 08:27] LABS: B Type Natriuretic Peptide 37 pg/mL (<100)
[2021-12-20] MEDS: Doxycycline Hyclate 100 MG in 0.9 % Sodium Chloride 250 ML 166.7 MG IV (09:09)
[2021-12-20] MEDS: Furosemide 40 MG/4 ML VIAL IVPUSH (09:09)
[2021-12-20] MEDS: Atorvastatin Calcium 20 MG TABLET PO (09:10)
[2021-12-20] MEDS: dilTIAZem HCL CD 120 MG CAP.ER.DEG PO (09:10)
[2021-12-20] MEDS: Flecainide Acetate 50 MG TABLET PO ×2 (09:10→20:23)
[2021-12-20] MEDS: Multivitamin TABLET 1 TAB PO (09:10)
--- NOTE | 2021-12-20 13:54 | P.PNIM_ITS ---
Subjective Subjective Date of Service: 12/20/21 Interval History: seen and examined this morning follow up for pneumonia, copd, CHF has leg edema, documented hypoxia but reporting improvement in dyspnea still with cough, no fever, no chills tolerating diet Review of Systems Review of Systems: Yes all other systems are reviewed and are negative Constitutional Constitutional: Denies chills and Denies fever(s) ENT Ears, Nose, Mouth, and Throat: Denies dizziness Cardiovascular Cardiovascular: Denies chest pain, Denies palpitations, Denies dyspnea and Denies dyspnea on exertion Respiratory Respiratory: Denies cough, Denies dyspnea and Denies dyspnea on exertion Gastrointestinal Gastrointestinal: Denies abdominal pain, Denies nausea and Denies vomiting Neurologic Neurologic: Denies dizziness Endocrine Endocrine: Denies palpitations Physical Exam Vital Signs: Vital Signs: Last Vital Signs Temp 98.3 F 12/20/21 11:24 Pulse 83 12/20/21 11:24 Resp 17 12/20/21 11:24 BP 113/59 L 12/20/21 11:24 Pulse Ox 90 L 12/20/21 11:24 O2 Del Method Nasal Cannula 12/20/21 11:24 O2 Flow Rate 3.5 12/20/21 11:24 BMI result Body Mass Index 38.9 Const: General: cooperative, comfortable, no acute distress, alert and awake Nutritional Appearance: overweight Orientation/consciousness: patient oriented x3 Resp: Effort & Inspection: normal respiratory effort and able to speak in complete sentences Auscultation: diminished lung sounds Cardio: Rate: regular rate Heart sounds: S1 normal heart sound present and S2 normal heart sound present GI: Inspection: No distended Palpation (GI): Soft to palpation and nontender Neuro: General: patient oriented x3 Extrem: Other: b/l pedal edema; chronic appearing skin changes b/l lower legs Objective Data Active Medications Acetaminophen (Acetaminophen 325 Mg Tablet) 650 mg PO Q6H PRN PRN Reason: Pain, Mild (Pain Scale 1-3) Albuterol/Ipratropium (Albuterol/Iprat 2.5/0.5mg 3 Ml Ampul.Neb) 3 ml INHALE RQ4H PRN PRN Reason: Shortness of Breath/Wheezing Last Admin: 12/18/21 23:43 Dose: 3 ml Documented By: DAVIS Albuterol/Ipratropium (Albuterol/Iprat 2.5/0.5mg 3 Ml Ampul.Neb) 3 ml INHALE RQ4H WHILE AWAKE [facility] Last Admin: 12/20/21 11:21 Dose: Not Given Documented By: YU Non-Admin Reason: pt refused states reaction from neb. Atorvastatin Calcium (Atorvastatin Calcium 20 Mg Tablet) 20 mg PO DAILY [facility] Last Admin: 12/20/21 09:10 Dose: 20 mg Documented By: EAMON Benzocaine (Throat Lozenge, Medicated Lozenge) 1 lozenge MUCOUS MEM Q2H PRN PRN Reason: Sore Throat Last Admin: 12/19/21 19:31 Dose: 1 lozenge Documented By: SUREKHA Diltiazem HCl (Diltiazem Hcl Cd 120 Mg Cap.Er.Deg) 120 mg PO DAILY [facility]; Protocol Last Admin: 12/20/21 09:10 Dose: 120 mg Documented By: EAMON Docusate Sodium (Docusate Sodium 100 Mg Capsule) 100 mg PO DAILY PRN PRN Reason: Constipation Last Admin: 12/19/21 12:24 Dose: 100 mg Documented By: BASIL Flecainide Acetate (Flecainide Acetate 50 Mg Tablet) 50 mg PO BID [facility] Last Admin: 12/20/21 09:10 Dose: 50 mg Documented By: EAMON Fluticasone/Vilanterol (Fluticasone/Vilanterol 200/25 Blst.W.Dev) 1 puff INHALE RDAILY [facility] Last Admin: 12/20/21 07:43 Dose: Not Given Documented By: YU Non-Admin Reason: Patient Refused Furosemide (Furosemide 40 Mg/4 Ml Vial) 40 mg IVPUSH BID@0900,1800 [facility]; Protocol Last Admin: 12/20/21 09:09 Dose: 40 mg Documented By: EAMON Comments: threw away vile before scanning Guaifenesin/Dextromethorphan (Guaifenesin Dm 100/10/5 Ml 5 Ml Syrup) 5 ml PO Q4H PRN PRN Reason: cough Last Admin: 12/19/21 07:43 Dose: 5 ml Documented By: BASIL Ceftriaxone Sodium 1 gm/ (Sodium Chloride) 50 mls @ 100 mls/hr IV Q24H [facility] Last Infusion: 12/20/21 06:47 Dose: 100 mls/hr Documented By: MAHI Doxycycline Hyclate 100 mg/ (Sodium Chloride) 250 mls @ 166.67 mls/hr IV Q12H [facility] Last Infusion: 12/20/21 11:47 Dose: 0 mls/hr Documented By: NAVIN Methylprednisolone Sodium Succinate (Methylprednisolone Sod Succ 40 Mg/Ml Vial) 40 mg IVPUSH Q24H [facility] Last Admin: 12/20/21 05:12 Dose: 40 mg Documented By: MAHI Multivitamins/Vitamin C (Multivitamin Tablet) 1 tab PO DAILY [facility] Last Admin: 12/20/21 09:10 Dose: 1 tab Documented By: EAMON Ondansetron HCl (Ondansetron Hcl 4 Mg/2 Ml Vial) 4 mg IVPUSH Q8H PRN PRN Reason: Nausea and Vomiting Potassium Chloride (Potassium Chloride Er 10 Meq Capsule.Er) 10 meq PO DAILY [facility] Last Admin: 12/20/21 09:10 Dose: 10 meq Documented By: EAMON Senna (Sennosides 8.6 Mg Tablet) 25.8 mg PO BEDTIME [facility] Last Admin: 12/19/21 19:24 Dose: 25.8 mg Documented By: SUREKHA Sodium Chloride (0.9 % Sodium Chloride Flush 3 Ml Syringe) 3 ml IVFLUSH QSHIFT [facility] Last Admin: 12/20/21 09:08 Dose: 3 ml Documented By: EAMON Warfarin Sodium (Warfarin Sodium 5 Mg Tablet) 5 mg PO SUMOWEFR@1800 [facility] Last Admin: 12/18/21 17:05 Dose: 5 mg Documented By: ROLF Warfarin Sodium (Warfarin Sodium 7.5 Mg Tablet) 7.5 mg PO TUTHSA@1800 [facility] Last Admin: 12/19/21 19:25 Dose: 7.5 mg Documented By: SUREKHA Labs CBC & Chem 7: 12/17/21 05:27 12/20/21 07:42 Labs: Laboratory Results - last 24 hr 12/17/21 12/20/21 12/20/21 12:57 05:54 07:42 PT 41.5 H INR 3.4 H Anion Gap 13 Estim Creat Clear Calc 116.6 Estimated GFR > 60 Random Glucose 100 Calcium 8.6 B-Natriuretic Peptide Ur Strep pneumoniae Ag Not Detected 12/20/21 07:42 PT INR Anion Gap Estim Creat Clear Calc Estimated GFR Random Glucose Calcium B-Natriuretic Peptide 37 Ur Strep pneumoniae Ag Assessment and Plan (1) CHF exacerbation: Status: Acute (2) Pneumonia: Status: Acute Plan 76yo M with HFpEF, COPD, hx DVT on warfarin presenting with dyspnea + cough + hypoxia, found to have PNA Multifocal PNA recent hospitalization in [place] for influenza.? continue ceftriaxone + doxycycline MRSA swab negative.? seen by speech - regular diet with thin liquids BCx negative steroids as below due to COPD Acute hypoxic respiratory failure secondary to pneumonia and COPD exacerbation Continue oxygen treatment as above, wean as tolerated Transition steroids to po, continue scheduled DuoNebs Acute on chronic heart failure with preserved ejection fraction bnp low, negative 3L will transition back to home dose of po lasix History of DVT INR 3.4 told coumadin today check INR daily Paroxysmal atrial fibrillation Continue flecainide, diltiazem and warfarin Obstructive sleep apnea Continue CPAP at bedtime VTE ppx: warfarin Attending Dr. Vasquez Full code In my clinical judgment, the patient requires continued inpatient hospitalization for the following reasons: IV antibiotics, supplemental O2 Quality Stroke Does the patient have a stroke diagnosis?: No VTE Prior VTE?: No VTE Risk Level:: Medical - moderate - high VTE Device Contraindication: Treatment Not Indicated VTE Drug Contraindication: N/A - Med Ordered
--- NOTE | 2021-12-20 16:12 | MHC.CM.PN ---
EMR REVIEWED, PER HOSPITALIST PT IMPROVING AND ANTIC PT MAY BE ABLE TO D/C HOME NO SERVICES TOMORROW 12/21 W/FAMILY FOR TRANSPORT.
[2021-12-20] MEDS: Furosemide 40 MG TABLET PO (20:23)
[2021-12-20] MEDS: Throat Lozenge, Medicated LOZENGE 1 LOZENGE MUCOUS MEM (20:23)
[2021-12-20] MEDS: guaiFENesin DM 100/10/5 ML 5 ML SYRUP PO (20:24)
[2021-12-20] MEDS: Sennosides 8.6 MG TABLET 25.8 MG PO (20:24)
[2021-12-20] MEDS: Doxycycline Hyclate 100 MG in 0.9 % Sodium Chloride 250 ML 166.67 MG IV (20:25)
[2021-12-20 22:17] LABS: Legionella Ag Urine Not Detected (Not Detected)
[2021-12-21] VITALS (13 sets, daily range): BP systolic 112–137; BP diastolic 59–69; PULSE 78–96; RESP 17–20; TEMP 36.1–36.5; O2SAT 4–97
[2021-12-21] MEDS: guaiFENesin DM 100/10/5 ML 5 ML SYRUP PO ×3 (04:06→16:53)
[2021-12-21] MEDS: Throat Lozenge, Medicated LOZENGE 1 LOZENGE MUCOUS MEM (04:06)
[2021-12-21] MEDS: cefTRIAXone sodium 1 GM in 0.9 % Sodium Chloride 50 ML IV (04:06)
[2021-12-21 05:54] LABS: INTERNATIONAL NORM RATIO 3.7 (0.9-1.1); Prothrombin Time 45.4 SEC (10.0-13.1)
[2021-12-21] MEDS: Fluticasone/Vilanterol 200/25 BLST.W.DEV 1 PUFF INHALE (07:32)
[2021-12-21] MEDS: Flecainide Acetate 50 MG TABLET PO ×2 (08:34→20:05)
[2021-12-21] MEDS: predniSONE 20 MG TABLET 40 MG PO (08:34)
[2021-12-21] MEDS: Furosemide 40 MG TABLET PO ×2 (08:34→19:55)
[2021-12-21] MEDS: Atorvastatin Calcium 20 MG TABLET PO (08:34)
[2021-12-21] MEDS: 0.9 % Sodium Chloride Flush 3 ML SYRINGE IVFLUSH ×3 (08:35→20:02)
[2021-12-21] MEDS: Multivitamin TABLET 1 TAB PO (08:35)
[2021-12-21] MEDS: dilTIAZem HCL CD 120 MG CAP.ER.DEG PO (08:35)
[2021-12-21] MEDS: Doxycycline Hyclate 100 MG in 0.9 % Sodium Chloride 250 ML 166.67 MG IV (08:35)
--- NOTE | 2021-12-21 15:47 | MHC.CM.PN ---
PER HOSPITALIST PT POSSIBLE D/C THIS EVENING AND WILL HAS QUALIFIED FOR HOME O2 W/LINC[facility], PT WILL NEED NEW VNA FOR HOME PT, NEW HOME O2 AND INR CHECKS, D/T WEEKEND AVAILABILITY OF VNA PT WILL COME IN TO [facility] TOMORROW AT 1:30PM, FAMILY WILL TRANSPORT
--- NOTE | 2021-12-21 16:16 | P.PNIM_ITS ---
Subjective Subjective Date of Service: 12/21/21 Interval History: seen and examined this morning follow up for pna, copd home PT evaluation, qualifies for 2 L of supplemental oxygen with activity breathing improving, still with persistent dry cough Review of Systems Review of Systems: Yes all other systems are reviewed and are negative Constitutional Constitutional: Denies chills and Denies fever(s) Cardiovascular Cardiovascular: Denies chest pain, Denies palpitations and Denies dyspnea Respiratory Respiratory: Reports cough and Denies dyspnea Gastrointestinal Gastrointestinal: Denies abdominal pain Endocrine Endocrine: Denies palpitations Physical Exam Vital Signs: Vital Signs: Last Vital Signs Temp 97.4 F 12/21/21 15:31 Pulse 82 12/21/21 15:31 Resp 18 12/21/21 15:31 BP 115/59 L 12/21/21 15:31 Pulse Ox 91 L 12/21/21 15:31 O2 Del Method 12/21/21 15:31 O2 Flow Rate 2 12/21/21 07:18 BMI result Body Mass Index 38.9 Const: General: cooperative, comfortable, no acute distress, alert and awake Nutritional Appearance: overweight Orientation/consciousness: patient oriented x3 Resp: Other: crackles right base Effort & Inspection: normal respiratory effort and able to speak in complete sentences Auscultation: diminished lung sounds Cardio: Rate: regular rate Heart sounds: S1 normal heart sound present and S2 normal heart sound present GI: Inspection: No distended Palpation (GI): Soft to palpation and nontender Neuro: General: patient oriented x3 Extrem: Other: b/l pedal edema; chronic appearing skin changes b/l lower legs Objective Data Active Medications Acetaminophen (Acetaminophen 325 Mg Tablet) 650 mg PO Q6H PRN PRN Reason: Pain, Mild (Pain Scale 1-3) Albuterol/Ipratropium (Albuterol/Iprat 2.5/0.5mg 3 Ml Ampul.Neb) 3 ml INHALE RQ4H PRN PRN Reason: Shortness of Breath/Wheezing Last Admin: 12/18/21 23:43 Dose: 3 ml Documented By: DAVIS Atorvastatin Calcium (Atorvastatin Calcium 20 Mg Tablet) 20 mg PO DAILY [facility] Last Admin: 12/21/21 08:34 Dose: 20 mg Documented By: BECKA Benzocaine (Throat Lozenge, Medicated Lozenge) 1 lozenge MUCOUS MEM Q2H PRN PRN Reason: Sore Throat Last Admin: 12/21/21 04:06 Dose: 1 lozenge Documented By: OTONIEL Diltiazem HCl (Diltiazem Hcl Cd 120 Mg Cap.Er.Deg) 120 mg PO DAILY [facility]; Protocol Last Admin: 12/21/21 08:35 Dose: 120 mg Documented By: BECKA Docusate Sodium (Docusate Sodium 100 Mg Capsule) 100 mg PO DAILY PRN PRN Reason: Constipation Last Admin: 12/19/21 12:24 Dose: 100 mg Documented By: BASIL Flecainide Acetate (Flecainide Acetate 50 Mg Tablet) 50 mg PO BID [facility] Last Admin: 12/21/21 08:34 Dose: 50 mg Documented By: BECKA Fluticasone/Vilanterol (Fluticasone/Vilanterol 200/25 Blst.W.Dev) 1 puff INHALE RDAILY [facility] Last Admin: 12/21/21 07:32 Dose: 1 puff Documented By: YU Furosemide (Furosemide 40 Mg Tablet) 40 mg PO BID [facility]; Protocol Last Admin: 12/21/21 08:34 Dose: 40 mg Documented By: BECKA Guaifenesin/Dextromethorphan (Guaifenesin Dm 100/10/5 Ml 5 Ml Syrup) 5 ml PO Q4H PRN PRN Reason: cough Last Admin: 12/21/21 10:37 Dose: 5 ml Documented By: BECKA Ceftriaxone Sodium 1 gm/ (Sodium Chloride) 50 mls @ 100 mls/hr IV Q24H [facility] Last Infusion: 12/21/21 05:06 Dose: 100 mls/hr Documented By: OTONIEL Doxycycline Hyclate 100 mg/ (Sodium Chloride) 250 mls @ 166.67 mls/hr IV Q12H [facility] Last Infusion: 12/21/21 10:10 Dose: 0 mls/hr Documented By: BECKA Levalbuterol HCl (Levalbuterol Hcl 1.25 Mg/0.5 Ml Vial.Neb) 1.25 mg INHALE RQ4H WHILE AWAKE [facility] Last Admin: 12/21/21 15:04 Dose: 1.25 mg Documented By: YU Multivitamins/Vitamin C (Multivitamin Tablet) 1 tab PO DAILY [facility] Last Admin: 12/21/21 08:35 Dose: 1 tab Documented By: BECKA Ondansetron HCl (Ondansetron Hcl 4 Mg/2 Ml Vial) 4 mg IVPUSH Q8H PRN PRN Reason: Nausea and Vomiting Potassium Chloride (Potassium Chloride Er 10 Meq Capsule.Er) 10 meq PO DAILY [facility] Last Admin: 12/21/21 08:34 Dose: 10 meq Documented By: BECKA Prednisone (Prednisone 20 Mg Tablet) 40 mg PO DAILY [facility] Last Admin: 12/21/21 08:34 Dose: 40 mg Documented By: BECKA Senna (Sennosides 8.6 Mg Tablet) 25.8 mg PO BEDTIME [facility] Last Admin: 12/20/21 20:24 Dose: 25.8 mg Documented By: OTONIEL Sodium Chloride (0.9 % Sodium Chloride Flush 3 Ml Syringe) 3 ml IVFLUSH QSHIFT [facility] Last Admin: 12/21/21 08:35 Dose: 3 ml Documented By: BECKA Tiotropium [place] (Tiotropium [place] 18 Mcg Cap.W.Dev) 1 puff INHALE RDAILY [facility] Last Admin: 12/21/21 07:31 Dose: Not Given Documented By: YU Non-Admin Reason: Med Not Available Warfarin Sodium (Warfarin Sodium 5 Mg Tablet) 5 mg PO SUMOWEFR@1800 [facility] Last Admin: 12/18/21 17:05 Dose: 5 mg Documented By: ROLF Warfarin Sodium (Warfarin Sodium 7.5 Mg Tablet) 7.5 mg PO TUTHSA@1800 [facility] Last Admin: 12/19/21 19:25 Dose: 7.5 mg Documented By: SUREKHA Labs CBC & Chem 7: 12/17/21 05:27 12/20/21 07:42 Labs: Laboratory Results - last 24 hr 12/17/21 12/21/21 12:57 05:22 PT 45.4 H INR 3.7 H Ur L.pneumophila Ag Not Detected Assessment and Plan (1) Pneumonia: Status: Acute Plan 76yo M with HFpEF, COPD, hx DVT on warfarin presenting with dyspnea + cough + hypoxia, found to have PNA Multifocal PNA recent hospitalization in [place] for influenza.? continue ceftriaxone + doxycycline MRSA swab negative.? seen by speech - regular diet with thin liquids BCx negative steroids as below due to COPD Acute hypoxic respiratory failure secondary to pneumonia and COPD exacerbation Continue oxygen treatment as above, wean as tolerated Transition steroids to po, continue scheduled DuoNebs qualifies for supplemental oxygen with ambulation Acute on chronic heart failure with preserved ejection fraction bnp low, negative 3L back on home dose of po lasix History of DVT INR 3.7 told coumadin today check INR daily Paroxysmal atrial fibrillation Continue flecainide, diltiazem coumadin on hold for elevated INR Obstructive sleep apnea Continue CPAP at bedtime VTE ppx: warfarin Attending Dr. Vasquez Full code In my clinical judgment, the patient requires continued inpatient hospitalization for the following reasons: IV antibiotics, supplemental O2 Quality Stroke Does the patient have a stroke diagnosis?: No VTE Prior VTE?: No VTE Risk Level:: Medical - moderate - high VTE Device Contraindication: Treatment Not Indicated VTE Drug Contraindication: N/A - Med Ordered
[2021-12-21] MEDS: Sennosides 8.6 MG TABLET 25.8 MG PO (19:54)
--- NOTE | 2021-12-21 21:24 | PC.NURSE ---
PT lost IV access, antibiotics changed to po, per PT request, MD Rosenthal put in order.
[2021-12-22] VITALS (7 sets, daily range): BP systolic 124–129; BP diastolic 61–72; PULSE 74–89; RESP 17–20; TEMP 36.1–36.4; O2SAT 90–96
--- NOTE | 2021-12-22 01:18 | PC.NURSE ---
PT refusing Ceftriaxone due to PT having no IV access and plan to DC today, MD Rosenthal notified.
[2021-12-22 06:59] LABS: INTERNATIONAL NORM RATIO 2.2 (0.9-1.1); Prothrombin Time 26.7 SEC (10.0-13.1)
[2021-12-22] MEDS: Fluticasone/Vilanterol 200/25 BLST.W.DEV 1 PUFF INHALE (07:40)
--- NOTE | 2021-12-22 09:27 | P.DS_ITS ---
DS: Providers Provider Date of Service: 12/22/21 Date of admission: 12/17/21 03:16 Date of discharge: 12/22/21 Primary care physician: Evelyn Valdez MD Attending physician on discharge: Fabio Vasquez Discharging clinician: Maira Barriga DS: Diagnosis Discharge Diagnosis (1) Pneumonia: Status: Acute DS: Summary Hospital Course Hospital Course: From H&P on day of admission This is a 76-year-old male with past medical history of CHF with preserved ejection fraction, COPD, sleep apnea on CPAP at night, history of DVT on chronic anticoagulation who presents to the hospital wi complaints of shortness of breath.? Patient reports that he just returned from [place] where he was treated for the flu.? He reports that he was in the hospital for 4 days but was not started on antibiotics.? He returns from [place] on .? He reports that he continues to have significant shortness of breath, cough, sputum production, as well as orthopnea and PND.? He does have chronic swelling on his right due to history of DVT but he also has evidence of swelling on his left leg that started few days ago.? He reports no chest pain, no palpitations, denies any abdominal pain nausea or vomiting, no diarrhea constipation, no urinary symptoms.? Reports compliance with his Lasix. On arrival to the ED patient hemodynamically stable with O2 of 91% dropping to 82% on ambulation Labs are significant for WBC count of 9.8, hemoglobin of 12, hematocrit 37.3, INR of 2.6, BNP of 28, Chest CT reveals a dense opacification of the right lower lobe with air bronchograms suspicious for pneumonia, additional patchy opacities in the right middle lobe and right upper lobe were also suspicious for pneumonia.? There is also dense region of opacity in the inferior lingula and basilar left lower l obe.? Few mediastinal lymph nodes near the upper limits of normal.? Biapical emphysema, RSV, influenza and COVID negative Multifocal PNA. Patient had recent hospitalization in [place] for influenza.?CT chest showed opacification of right lower lobe, right middle lobe and right upper lobe suspicious for pneumonia. He was treated with IV ceftriaxone + doxycycline. MRSA swab negative.? RSV/ COVID/ flu test was negative. Due to concern over possibility of aspiration he was seen by speech who recommended regular diet with thin liquids. Blood cultures have remained negative. Patient has remained afebrile. Recommend outpatient imaging in 4-6 weeks to ensure resolution. Acute hypoxic respiratory failure secondary to pneumonia and COPD exacerbation. he was treated with systemic steroids and scheduled breathing treatments. He was able to be weaned off of oxygen at rest but did qualify for 2 L of supplemental oxygen with ambulation. Patient had one episode of feeling shaky after receiving duoneb breathing treatment, He was reassured that this does not represent a true allergic reaction but he is requesting prescription for zopenex which will be sent to the pharmacy. May benefit from outpatient pulmonary rehab. Acute on chronic heart failure with preserved ejection fraction. He was treated with IV lasix and is overall net negative balance during the hospitalization. He was transitioned back to his baseline dose of lasix. History of DVT/afib. INR 2.2. resume previous dose of coumadin. follow INR with Time Spent with Patient Time attestation: Total time spent providing and/or coordinating discharge services: Discharge coordination time: Greater than 30 minutes Quality: Safe Use of Opioids Does Pt have an Active Cancer Diagnosis on the Problem List?: No Quality: Stroke Does the patient have a stroke diagnosis?: No Physical Exam Vital Signs: Vital Signs: Last Vital Signs Temp 96.9 F 12/22/21 07:20 Pulse 81 12/22/21 09:11 Resp 18 12/22/21 07:43 BP 124/69 12/22/21 07:20 Pulse Ox 90 L 12/22/21 09:11 O2 Del Method 12/22/21 07:20 O2 Flow Rate 2 12/21/21 23:53 BMI result Body Mass Index 38.9 DS: Data Data Completed and Pending Labs on day of discharge: Laboratory Results - last 24 hr 12/22/21 05:54 PT 26.7 H INR 2.2 H Discharge Plan Discharge Anticipated Discharge Date/Time: 12/21/21 15:56 Patient Disposition: Home Health Service Discharge Diagnosis: acute hypoxic respiratory failure multifocal pneumonia COPD exacerbation Referrals: [facility] [Other] - 3-5 Days (YOU HAVE AN APPT MONDAY 12/25 AT 2:00PM) [facility] [Other] - 1 Day (PLEASE CALL [facility] SOON YOU ARRIVE HOME AND THEY WILL DELIVER YOUR HOME OXYGEN ) [facility] [Outside] - 3-5 Days (HOME PHYSICAL THERAPY, A THERAPIST WILL REACH OUT TO YOU ) Evelyn Valdez MD [Primary Care Provider] - 1 Week Discharge Medications: New prednisone 10 mg tablet See Taper PO DAILY Qty: 24 0RF Taper: Prednisone 40 mg daily for 1 Day and 0 Hour 30 mg daily for 2 Days and 0 Hour 20 mg daily for 2 Days and 0 Hour 10 mg daily for 2 Days and 0 Hour levalbuterol HCl [Xopenex Concentrate] 1.25 mg/0.5 mL Solution For Nebulization 1.25 mg inhalation RQ4H WHILE AWAKE Qty: 30 0RF Continued fluticasone propion-salmeterol [Advair Diskus] 500-50 mcg/dose blister with device 1 inh inhalation BID 30 Days Qty: 60 5RF acetaminophen 500 mg Tablet 1,000 mg PO Q6H PRN (Reason: Back Pain) multivitamin Tablet 1 tab PO DAILY warfarin 5 mg tablet 5 mg PO SUMOWEFR@1800 Protocol: Dose Management Condition: Saturday (Week One) Dose/Route: 5 mg Instruction: 1 x 5 mg tablet Condition: Saturday Dose/Route: 5 mg Instruction: 1 x 5 mg tablet Condition: Saturday Dose/Route: 7.5 mg Instruction: 1.5 x 5 mg tablets Condition: Saturday Dose/Route: 5 mg Instruction: 1 x 5 mg tablet Condition: Dose/Route: 7.5 mg Instruction: 1.5 x 5 mg tablets Condition: Saturday Dose/Route: 5 mg Instruction: 1 x 5 mg tablet Condition: Saturday Dose/Route: 7.5 mg Instruction: 1.5 x 5 mg tablets Condition: Saturday (Week Two) Dose/Route: 5 mg Instruction: 1 x 5 mg tablet Condition: Saturday Dose/Route: 5 mg Instruction: 1 x 5 mg tablet Condition: Saturday Dose/Route: 7.5 mg Instruction: 1.5 x 5 mg tablets Condition: Saturday Dose/Route: 5 mg Instruction: 1 x 5 mg tablet Condition: Dose/Route: 7.5 mg Instruction: 1.5 x 5 mg tablets Condition: Saturday Dose/Route: 5 mg Instruction: 1 x 5 mg tablet Condition: Saturday Dose/Route: 7.5 mg Instruction: 1.5 x 5 mg tablets Protocol Text: Adjustment Start Date: Saturday12/25/21 INR Value: 2.1 INR Date: 12/25/21 Recheck Date: 01/01/22 Additional Instructions: INR is in range continue same dosing balance greens and reds in diet warfarin 5 mg tablet 7.5 mg PO TUTHSA@1800 Protocol: Dose Management Condition: Saturday (Week One) Dose/Route: 5 mg Instruction: 1 x 5 mg tablet Condition: Saturday Dose/Route: 5 mg Instruction: 1 x 5 mg tablet Condition: Saturday Dose/Route: 7.5 mg Instruction: 1.5 x 5 mg tablets Condition: Saturday Dose/Route: 5 mg Instruction: 1 x 5 mg tablet Condition: Dose/Route: 7.5 mg Instruction: 1.5 x 5 mg tablets Condition: Saturday Dose/Route: 5 mg Instruction: 1 x 5 mg tablet Condition: Saturday Dose/Route: 7.5 mg Instruction: 1.5 x 5 mg tablets Condition: Saturday (Week Two) Dose/Route: 5 mg Instruction: 1 x 5 mg tablet Condition: Saturday Dose/Route: 5 mg Instruction: 1 x 5 mg tablet Condition: Saturday Dose/Route: 7.5 mg Instruction: 1.5 x 5 mg tablets Condition: Saturday Dose/Route: 5 mg Instruction: 1 x 5 mg tablet Condition: Dose/Route: 7.5 mg Instruction: 1.5 x 5 mg tablets Condition: Saturday Dose/Route: 5 mg Instruction: 1 x 5 mg tablet Condition: Saturday Dose/Route: 7.5 mg Instruction: 1.5 x 5 mg tablets Protocol Text: Adjustment Start Date: Saturday12/25/21 INR Value: 2.1 INR Date: 12/25/21 Recheck Date: 01/01/22 Additional Instructions: INR is in range continue same dosing balance greens and reds in diet senna 8.6 mg capsule 25.8 mg PO BEDTIME docusate sodium 100 mg capsule 200 mg PO DAILY diltiazem HCl 120 mg capsule,extended release 24hr 120 mg PO DAILY atorvastatin 20 mg tablet 20 mg PO DAILY albuterol sulfate 90 mcg/actuation HFA aerosol inhaler 2 puff inhalation QID PRN (Reason: Shortness Of Breath) flecainide 50 mg tablet 50 mg PO BID furosemide 40 mg tablet 40 mg PO BID potassium chloride 10 mEq tablet extended release 10 meq PO DAILY albuterol sulfate 2.5 mg /3 mL (0.083 %) solution for nebulization 2.5 mg inhalation Q4-8H PRN (Reason: shortness of breath or wheezing) Qty: 180 3RF No Action sodium chloride 0.9 % solution for nebulization 1 ml inhalation Q4H Qty: 90 0RF Discharge Orders: Discharge Order (Routine); Ordered 12/22/21 Ordered By: Maira Barriga Activity on Discharge: As tolerated Stand Alone Forms: Patient Portal Discharge page Care Plan Goals: see below Health Concerns: multifocal pneumonia COPD exacerbation Hypoxia CHF exacerbation Plan of Treatment: You qualify for 2L of oxygen with activity, use as prescribed Complete course of steroids as prescribed Complete course of antibiotics as prescribed Take lasix as prescribed, monitor weight daily, follow low salt diet Call to schedule follow up appointments with pulmonary and PCP INR 2.2, take coumadin as prescribed and follow up in coumadin clinic on Saturday for INR check can use xopenex as needed for sob/wheezing may benefit from outpatient pulmonary rehab Assessment: see discharge summary Discharge Date/Time: 12/22/21 16:07
[2021-12-22] MEDS: Multivitamin TABLET 1 TAB PO (09:41)
[2021-12-22] MEDS: Furosemide 40 MG TABLET PO (09:41)
[2021-12-22] MEDS: Flecainide Acetate 50 MG TABLET PO (09:41)
[2021-12-22] MEDS: dilTIAZem HCL CD 120 MG CAP.ER.DEG PO (09:41)
[2021-12-22] MEDS: predniSONE 20 MG TABLET 40 MG PO (09:41)
[2021-12-22] MEDS: Atorvastatin Calcium 20 MG TABLET PO (09:41)
--- NOTE | 2021-12-22 10:09 | MHC.CM.PN ---
PT MEDICALLY CLEARED FOR D/C HOME W/[facility] FOR HOME PT AND RESUMP OF [facility] [facility], FAMILY FOR TRANSPORT
--- NOTE | 2021-12-22 13:58 | W.MHC.F2F ---
Service Date Service Date: 12/22/21 Encounter Date of encounter: 12/22/21 Reasons for Services Signs and symptoms assessed: deconditioning, impaired gait pattern, standing balance and transfer ability; muscle weakness Reason for physical therapy: home safety and mobility, therapeutic exercises and energy conservation MD Overseeing Care: Evelyn Valdez Homebound: Leaving the home is medically contraindicated at this time without the asist of a device and/or another person due th the listed conditions above and below. Reason homebound: weakness related to hospital stay Certification: Based on the above findings, I certify that this patient is confined to the home and needs intermittent correction care, physical therapy and/or speech therapy, or continues to need occupational therapy. The patient is under my care, and I have initiated the establishment of the plan of care. The patient will be followed by a physician who will periodically review the plan of care.
== END 2021-12-22 16:07 | disposition home health service (06) | DRG 291 ==
LOC: HO.ED 12-17 01:03 → HO.EDOVER 12-17 03:22 → HO.S3 12-18 03:41
PROVIDERS: Family Medicine; Admitting Provider Internal Medicine; Emergency Provider Emergency Medicine; PCP Internal Medicine; Visit Provider Physician Assistant Medical
DX: I50.33 Acute on chronic diastolic (congestive) heart failure (principal); J18.9 Pneumonia, unspecified organism; J96.01 Acute respiratory failure with hypoxia; J44.0 Chronic obstructive pulmonary disease with (acute) lower respiratory infection; J44.1 Chronic obstructive pulmonary disease with (acute) exacerbation; Z20.822 Contact with and (suspected) exposure to COVID-19; E83.42 Hypomagnesemia; I48.0 Paroxysmal atrial fibrillation; G47.33 Obstructive sleep apnea (adult) (pediatric); Z86.718 Personal history of other venous thrombosis and embolism; E87.6 Hypokalemia; Z88.0 Allergy status to penicillin; E66.9 Obesity, unspecified; Z68.39 Body mass index [BMI] 39.0-39.9, adult; Z88.1 Allergy status to other antibiotic agents; Z79.51 Long term (current) use of inhaled steroids; Z79.52 Long term (current) use of systemic steroids; Z79.01 Long term (current) use of anticoagulants; Z79.899 Other long term (current) drug therapy
CPT/HCPCS: 0241U; 36415; 71045; 71250; 80048; 80053; 82947; 83605; 83735; 83880; 84145; 84484; 85025; 85610; 87040; 87449; 87633; 87640; 87641; 87899; 92526; 92610; 93005; 94640; 94660; 97110; 97116; 97162; 99285; J0456; J0696; J1940; J1956; J2920; J2930

== ENCOUNTER → 2021-12-25 14:43 | Outpatient (BNVA) | payer MEDICARE, SELFPAY | PROVIDERS: PCP Internal Medicine; Visit Provider Internal Medicine | DX: I48.19 Other persistent atrial fibrillation (principal); Z86.718 Personal history of other venous thrombosis and embolism; Z79.01 Long term (current) use of anticoagulants; Z51.81 Encounter for therapeutic drug level monitoring | CPT/HCPCS: 85610; 99211 ==

== ENCOUNTER → 2022-01-01 13:29 | Outpatient (BNVA) | payer MEDICARE, SELFPAY | PROVIDERS: PCP Internal Medicine; Visit Provider Internal Medicine | DX: I48.19 Other persistent atrial fibrillation (principal); Z86.718 Personal history of other venous thrombosis and embolism; Z51.81 Encounter for therapeutic drug level monitoring; Z79.01 Long term (current) use of anticoagulants | CPT/HCPCS: 85610; 99211 ==

== ENCOUNTER → 2022-01-08 13:22 | Outpatient (BNVA) | payer MEDICARE, SELFPAY | PROVIDERS: PCP Internal Medicine; Visit Provider Internal Medicine | DX: I48.19 Other persistent atrial fibrillation (principal); Z86.718 Personal history of other venous thrombosis and embolism; Z79.01 Long term (current) use of anticoagulants; Z51.81 Encounter for therapeutic drug level monitoring | CPT/HCPCS: 85610; 99211 ==

== ENCOUNTER → 2022-01-09 10:37 | Outpatient (BNVA) | payer MEDICARE, SELFPAY | PROVIDERS: PCP Internal Medicine; Referring Provider Internal Medicine; Visit Provider Internal Medicine Cardiovascular Disease | DX: I48.0 Paroxysmal atrial fibrillation (principal); I50.30 Unspecified diastolic (congestive) heart failure; I77.89 Other specified disorders of arteries and arterioles | CPT/HCPCS: 99212 ==

== ENCOUNTER → 2022-01-15 13:14 | Outpatient (BNVA) | payer MEDICARE, SELFPAY | PROVIDERS: PCP Internal Medicine; Visit Provider Internal Medicine | DX: I48.19 Other persistent atrial fibrillation (principal); Z86.718 Personal history of other venous thrombosis and embolism; Z51.81 Encounter for therapeutic drug level monitoring; Z79.01 Long term (current) use of anticoagulants | CPT/HCPCS: 85610; 99211 ==

== ENCOUNTER → 2022-01-22 13:38 | Outpatient (BNVA) | payer MEDICARE, SELFPAY | PROVIDERS: PCP Internal Medicine; Visit Provider Internal Medicine | DX: J44.1 Chronic obstructive pulmonary disease with (acute) exacerbation (principal); R06.02 Shortness of breath; E66.9 Obesity, unspecified; Z68.38 Body mass index [BMI] 38.0-38.9, adult; G47.33 Obstructive sleep apnea (adult) (pediatric); Z99.89 Dependence on other enabling machines and devices | CPT/HCPCS: 99212 ==

== ENCOUNTER → 2022-01-26 13:07 | Outpatient (BNVA) | payer MEDICARE, SELFPAY | PROVIDERS: PCP Internal Medicine; Visit Provider Internal Medicine | DX: I48.19 Other persistent atrial fibrillation (principal); Z86.718 Personal history of other venous thrombosis and embolism; Z79.01 Long term (current) use of anticoagulants; Z51.81 Encounter for therapeutic drug level monitoring | CPT/HCPCS: 85610; 99211 ==

== ENCOUNTER → 2022-02-23 13:35 | Outpatient (BNVA) | payer MEDICARE, SELFPAY | PROVIDERS: PCP Internal Medicine; Visit Provider Internal Medicine | DX: I48.19 Other persistent atrial fibrillation (principal); Z86.718 Personal history of other venous thrombosis and embolism; Z79.01 Long term (current) use of anticoagulants; Z51.81 Encounter for therapeutic drug level monitoring | CPT/HCPCS: 85610; 99211 ==

== ENCOUNTER → 2022-03-08 12:46 | Outpatient (BNVA) | payer MEDICARE, SELFPAY | PROVIDERS: PCP Internal Medicine; Visit Provider Surgery Vascular Surgery | DX: I48.19 Other persistent atrial fibrillation (principal); Z86.718 Personal history of other venous thrombosis and embolism; I83.11 Varicose veins of right lower extremity with inflammation; I89.0 Lymphedema, not elsewhere classified; Z79.01 Long term (current) use of anticoagulants; Z51.81 Encounter for therapeutic drug level monitoring | CPT/HCPCS: 85610; 99211; 99212 ==

== ENCOUNTER → 2022-03-22 13:24 | Outpatient (BNVA) | payer MEDICARE, SELFPAY | PROVIDERS: PCP Internal Medicine; Visit Provider Internal Medicine | DX: I48.19 Other persistent atrial fibrillation (principal); Z86.718 Personal history of other venous thrombosis and embolism; Z79.01 Long term (current) use of anticoagulants; Z51.81 Encounter for therapeutic drug level monitoring | CPT/HCPCS: 85610; 99211 ==

== ENCOUNTER → 2022-04-12 13:30 | Outpatient (BNVA) | payer MEDICARE, SELFPAY | PROVIDERS: PCP Internal Medicine; Visit Provider Internal Medicine | DX: I48.19 Other persistent atrial fibrillation (principal); Z86.718 Personal history of other venous thrombosis and embolism; Z79.01 Long term (current) use of anticoagulants; Z51.81 Encounter for therapeutic drug level monitoring | CPT/HCPCS: 85610; 99211 ==

== ENCOUNTER → 2022-05-03 13:45 | Outpatient (BNVA) | payer MEDICARE, SELFPAY | PROVIDERS: PCP Internal Medicine; Visit Provider Internal Medicine | DX: I48.19 Other persistent atrial fibrillation (principal); Z86.718 Personal history of other venous thrombosis and embolism; Z79.01 Long term (current) use of anticoagulants; Z51.81 Encounter for therapeutic drug level monitoring | CPT/HCPCS: 85610; 99211 ==

== ENCOUNTER → 2022-05-08 11:42 | Outpatient (BNVA) | payer MEDICARE, SELFPAY | PROVIDERS: PCP Internal Medicine; Visit Provider Internal Medicine | DX: I48.19 Other persistent atrial fibrillation (principal); Z86.718 Personal history of other venous thrombosis and embolism; Z79.01 Long term (current) use of anticoagulants; Z51.81 Encounter for therapeutic drug level monitoring | CPT/HCPCS: 85610; 99211 ==

== ENCOUNTER → 2022-05-22 12:57 | Outpatient (BNVA) | payer MEDICARE, SELFPAY | PROVIDERS: PCP Internal Medicine; Visit Provider Internal Medicine | DX: I48.19 Other persistent atrial fibrillation (principal); Z86.718 Personal history of other venous thrombosis and embolism; Z51.81 Encounter for therapeutic drug level monitoring; Z79.01 Long term (current) use of anticoagulants | CPT/HCPCS: 85610; 99211; 99212 ==

== ENCOUNTER → 2022-06-04 13:40 | Outpatient (REF) | payer MEDICARE, SELFPAY ==
--- NOTE | 2022-06-04 13:43 | CA_ITS ---
Transthoracic Echocardiogram Patient (Last, First, Middle): Jay Gonzales, Gender: Male Date of : 1945 Age: 76 Procedure Date: 06/04/2022 Procedure Type: Transthoracic Echocardiogram Location: OP Height: 175.26 cm Weight: 115.67 kg BSA: 2.29 m2 Heart Rate: bpm BP: 120 / 60 mmHg Construction Director: LILIAN Referring MD: Justin Nava MD Symptoms: I50.30 - Unspecified diastolic (congestive) heart failure Study Quality: Technically Difficult, contrast ECG Rhythm: Sinus Conclusions: - The left ventricular systolic function is normal. The calculated ejection fraction is 62% by biplane method. - Mildly increased right ventricular cavity size. - Possible biatrial dilation, but measurements are overestimates. - No obvious valvular pathology seen on this study. - There is mild dilatation of the sinuses of Valsalva measuring 4.46 cm and mild dilatation of the ascending aorta measuring 4.00 cm. - Liver cysts with septation noted; overall size 7 x 5cm. Consider dedicated liver ultrasound. Findings Procedure Information Contrast agent, definity, is being given per protocol without apparent complications. Left Ventricle Normal left ventricular cavity size. There is normal left ventricular wall thickness. The left ventricular systolic function is normal. The calculated ejection fraction is 62% by biplane method. There is no evidence of regional wall motion abnormalities. Diastolic function is normal for age. Right Ventricle Mildly increased right ventricular cavity size. There is normal right ventricular systolic function. Atria Possible biatrial dilation, but measurements are overestimates. Aortic Valve There is a normal trileaflet aortic valve. There is no aortic valve stenosis. There is no aortic valve regurgitation. Mitral Valve The mitral valve appears normal. There is no mitral valve regurgitation. There is no mitral valve stenosis. Pulmonic Valve The pulmonic valve is likely normal. Tricuspid Valve Normal tricuspid valve structure. There is trace tricuspid valve regurgitation. There is no evidence of pulmonary hypertension. Great Vessels There is mild dilatation of the sinuses of Valsalva measuring 4.46 cm and mild dilatation of the ascending aorta measuring 4.00 cm. Liver cysts with septation noted; overall size 7 x 5cm. Venous The inferior vena cava is mildly dilated and collapses greater than 50% with inspiration. Pericardium/Pleural There is no evidence of pericardial effusion. Prior Study Comparison Changes noted compared to prior study dated: 05/19/2021. see comments on liver cysts. Recommendations, Care & Conclusions No obvious valvular pathology seen on this study. Measurements 2D Linear Measurements IVSd: 1.00 0.6-0.9/0.6-1.0 cm LVIDd: 4.95 3.9-5.3/4.2-5.9 cm LVIDd Index: 2.16 2.4-3.2/2.2-3.1 cm/m2 LVIDs: 3.08 2.0-3.6 cm LVPWd: 1.00 0.7-1.1 cm LA Diam: 3.30 2.7-3.8/3.0-4.0 cm LAIDs Index: 1.44 1.5-2.3 cm/m2 LV Mass: 222.39 67-162/88-224 g LV Mass Index: 97.11 43-95/49-115 g/m2 LVOT Diam: 2.30 3.0+(-)1.3 cm 2D Systolic Function EF 4C: 54.70 >55% EF 2C: 68.30 >55% EF BiP: 61.90 >55% Mitral Valve MV Pk E: 0.76 MV PK A: 0.71 MV Decel Time: 177.00 E/A: 1.10 E'Lateral: 8.70 E'Medial: 6.31 E/E' Med: 12.00 E/E' Lat: 8.70 PHT: 52.00 MVA PHT: 4.23 Decel Kershaw: 4.29 Aortic Valve AoV Pk Hernandez: 1.22 AoV Mn Hernandez: 0.91 AoV VTI: 0.28 AoV Pk Grad: 6.00 Aov Mn Grad: 4.00 AGUSTIN Cont.VTI: 3.30 LVOT LVOT Pk Hernandez: 1.11 LVOT Mn Hernandez: 0.69 LVOT VTI: 0.22 LVOT Pk Grad: 5.00 LVOT Mn Grad: 2.00 LVOT Diam: 2.30 LVOT Area: 4.15 Diastolic Function MV Pk E: 0.76 MV Pk A: 0.71 E/A: 1.10 E'Medial: 6.31 E/E' Med: 12.00 E' Laterial: 8.70 E/E' Lat: 8.70 Right Ventricle TAPSE (mm): 25.90 TVS' Hernandez: 12.60 Tricuspid Valve TR Pk Hernandez: 2.65 TR Pk Grad: 28.00 Great Vessels Aorta Sinus of Valsalva: 4.46 2.0-3.[address] [place]: 3.74 1.7-3.4 cm Ao Asc: 4.00 2.1-3.4 cm Updated in Other Vendor System with Status of Final Art Narvaez MD electronically signed on 06/05/2022 10:40:58 AM with status of Final
== END ==
LOC: HO.CARD 13:40
PROVIDERS: PCP Internal Medicine; Visit Provider Internal Medicine Cardiovascular Disease
DX: I50.30 Unspecified diastolic (congestive) heart failure (principal)
CPT/HCPCS: 93306; Q9957

== ENCOUNTER → 2022-06-05 13:16 | Outpatient (BNVA) | payer MEDICARE, SELFPAY | PROVIDERS: PCP Internal Medicine; Visit Provider Internal Medicine | DX: I48.19 Other persistent atrial fibrillation (principal); Z86.718 Personal history of other venous thrombosis and embolism; Z79.01 Long term (current) use of anticoagulants; Z51.81 Encounter for therapeutic drug level monitoring | CPT/HCPCS: 85610; 99211 ==

== ENCOUNTER → 2022-06-19 12:33 | Outpatient (BNVA) | payer MEDICARE, SELFPAY | PROVIDERS: PCP Internal Medicine; Referring Provider Internal Medicine; Visit Provider Internal Medicine Cardiovascular Disease | DX: I45.10 Unspecified right bundle-branch block (principal); I48.0 Paroxysmal atrial fibrillation; I11.0 Hypertensive heart disease with heart failure; I50.30 Unspecified diastolic (congestive) heart failure; I77.89 Other specified disorders of arteries and arterioles; I89.0 Lymphedema, not elsewhere classified; R06.09 Other forms of dyspnea | CPT/HCPCS: 93005; 99212 ==

== ENCOUNTER → 2022-06-26 13:22 | Outpatient (BNVA) | payer MEDICARE, SELFPAY | PROVIDERS: PCP Internal Medicine; Visit Provider Internal Medicine | DX: I48.19 Other persistent atrial fibrillation (principal); Z86.718 Personal history of other venous thrombosis and embolism; Z79.01 Long term (current) use of anticoagulants; Z51.81 Encounter for therapeutic drug level monitoring | CPT/HCPCS: 85610; 99211 ==

== ENCOUNTER → 2022-07-03 10:00 | Outpatient (BNVA) | payer MEDICARE, SELFPAY | PROVIDERS: PCP Internal Medicine; Visit Provider Internal Medicine ==

== ENCOUNTER → 2022-07-10 13:03 | Outpatient (BNVA) | payer MEDICARE, SELFPAY | PROVIDERS: PCP Internal Medicine; Visit Provider Internal Medicine | DX: I48.19 Other persistent atrial fibrillation (principal); Z86.718 Personal history of other venous thrombosis and embolism; Z51.81 Encounter for therapeutic drug level monitoring | CPT/HCPCS: 85610; 99211 ==

== ENCOUNTER → 2022-07-24 13:18 | Outpatient (BNVA) | payer MEDICARE, SELFPAY | PROVIDERS: PCP Internal Medicine; Visit Provider Internal Medicine | DX: I48.19 Other persistent atrial fibrillation (principal); Z86.718 Personal history of other venous thrombosis and embolism; Z79.01 Long term (current) use of anticoagulants; Z51.81 Encounter for therapeutic drug level monitoring | CPT/HCPCS: 85610; 99211 ==

== ENCOUNTER → 2022-08-07 13:23 | Outpatient (BNVA) | payer MEDICARE, SELFPAY | PROVIDERS: PCP Internal Medicine; Visit Provider Internal Medicine | DX: I48.19 Other persistent atrial fibrillation (principal); Z86.718 Personal history of other venous thrombosis and embolism; Z51.81 Encounter for therapeutic drug level monitoring; Z79.01 Long term (current) use of anticoagulants | CPT/HCPCS: 85610; 99211 ==

== ENCOUNTER 2022-08-28 13:17 | Outpatient (AMB) | payer MEDICARE, SELFPAY ==
[2022-08-28 13:30] LABS: Prothrombin Time Whole Bld POC 46.5 sec (11.1-13.5); ~PT, ~INR - Anti Coag Clinic 3.9 (0.9-1.1)
--- NOTE | 2022-08-28 13:37 | MHC.OFFVISCO ---
Intake Intake Visit Reasons: Anticoagulation Allergies albuterol Adverse Reaction (Intermediate, Verified 08/28/22 13:23) Palpitations amoxicillin [From Augmentin] Adverse Reaction (Intermediate, Verified 08/28/22 13:23) Nausea and Vomiting, dizziness clavulanic acid [From Augmentin] Adverse Reaction (Intermediate, Verified 08/28/22 13:23) Nausea and Vomiting, dizziness Medication List - Last Reconciled 08/28/22 by Lottie Ardno, RN acetaminophen 1,000 mg PO Q6H PRN atorvastatin 20 mg PO DAILY diltiazem HCl 120 mg PO DAILY docusate sodium 200 mg PO DAILY flecainide 50 mg PO BID 90 days fluticasone propion-salmeterol 500-50 mcg/dose (Wixela Inhub) 1 inh inhalation BID 90 days furosemide 20 mg PO BID levalbuterol HCl 1.25 mg (0.5 mL) inhalation RQ4H WHILE AWAKE 90 days multivitamin 1 tab PO DAILY potassium chloride ER 10 mEq PO DAILY sennosides (senna) 25.8 mg PO BEDTIME sodium chloride 0.9% 3 mL inhalation Q4H PRN 90 days warfarin 5 mg See Protocol PO SUMOWEFR@1800 warfarin 7.5 mg See Protocol PO TUTHSA@1800 Nursing Note Amb to ACS feeling ok but I think my number is going to be up, no greens this week Medications and supplements reviewed, sts he has been taking tylenol for back ache, shoulder ache, foot aches No other changes in health, diet, medications, or supplements Denies any unusual signs and symptoms of bruising, bleeding, pt sts have just noticed that I do have more bruises than usual Denies any new Chest pain, SOB, or clotting INR: 3.9 above therapeutic range Nutritional guidance given:good dark leafy greens like brocolli today and tomorrow then balance greens and reds in diet Dose: hold warfarin today then resume usual dosing; 7.5mg x 3 days and 5mg x days F/U INR: 1 week Patient verbalizes understanding of instructions given with accurate read back/ teach back of dosing Anti-Coag Initial Assessment Social Hx Patient Tobacco Use Status: Former Tobacco user alcohol intake: current Alcohol intake frequency: a few times a week Coding Level of Care Code Est Patient Level 1 Diagnoses Current use of anticoagulant therapy Z79.01 Time Spent (min) 15 Assessment & Plan Assessment & Plan (1) Current use of anticoagulant therapy: Code(s): Z79.01 - 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
== END 2022-08-28 13:45 | disposition home or self-care (01) ==
LOC: HO.ACS 13:17
PROVIDERS: PCP Internal Medicine; Visit Provider Internal Medicine
DX: Z79.01 Long term (current) use of anticoagulants (principal)

== ENCOUNTER → 2022-08-28 13:17 | Outpatient (BNVA) | payer MEDICARE, SELFPAY | PROVIDERS: PCP Internal Medicine; Visit Provider Internal Medicine | DX: I48.19 Other persistent atrial fibrillation (principal); Z86.718 Personal history of other venous thrombosis and embolism; Z79.01 Long term (current) use of anticoagulants; Z51.81 Encounter for therapeutic drug level monitoring | CPT/HCPCS: 85610; 99211 ==

== ENCOUNTER 2022-09-04 13:24 | Outpatient (AMB) | payer MEDICARE, SELFPAY ==
--- NOTE | 2022-09-04 13:34 | MHC.OFFVISCO ---
Intake Intake Visit Reasons: Anticoagulation Allergies albuterol Adverse Reaction (Intermediate, Verified 09/04/22 13:29) Palpitations amoxicillin [From Augmentin] Adverse Reaction (Intermediate, Verified 09/04/22 13:29) Nausea and Vomiting, dizziness clavulanic acid [From Augmentin] Adverse Reaction (Intermediate, Verified 09/04/22 13:29) Nausea and Vomiting, dizziness Medication List - Last Reconciled 09/04/22 by Kelly Cabrera RN acetaminophen 1,000 mg PO Q6H PRN atorvastatin 20 mg PO DAILY diltiazem HCl 120 mg PO DAILY docusate sodium 200 mg PO DAILY flecainide 50 mg PO BID 90 days fluticasone propion-salmeterol 500-50 mcg/dose (Wixela Inhub) 1 inh inhalation BID 90 days furosemide 20 mg PO BID levalbuterol HCl 1.25 mg (0.5 mL) inhalation RQ4H WHILE AWAKE 90 days multivitamin 1 tab PO DAILY potassium chloride ER 10 mEq PO DAILY sennosides (senna) 25.8 mg PO BEDTIME sodium chloride 0.9% 3 mL inhalation Q4H PRN 90 days warfarin 5 mg See Protocol PO SUMOWEFR@1800 warfarin 7.5 mg See Protocol PO TUTHSA@1800 Nursing Note INR: 2.6- in therapeutic range Medications and supplements reviewed- no changes No changes in health, diet, medications, or supplements, Denies any signs and symptoms of bleeding or bruising or clotting. Bleeding, bruising, clotting discussed Nutritional guidance given Dose: 7.5mg x 3, 5mg x 4 F/U INR: 2 weeks Patient verbalizes understanding of instructions given pt c.o occ hip pain- takes occ tylenol, aware large amounts will raise inr and will increase greens Anti-Coag Initial Assessment Social Hx Patient Tobacco Use Status: Former Tobacco user alcohol intake: current Alcohol intake frequency: a few times a week Coding Level of Care Code Est Patient Level 1 Diagnoses Current use of anticoagulant therapy Z79.01 Results AMB INR Fingerstick AMB INR Fingerstick 2.6 Last Edit by Kelly Cabrera RN on 09/04/22 13:36 Assessment & Plan Assessment & Plan (1) Current use of anticoagulant therapy: Code(s): Z79.01 - ad terminal 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
[2022-09-04 13:36] LABS: Prothrombin Time Whole Bld POC 31.3 sec (11.1-13.5); ~PT, ~INR - Anti Coag Clinic 2.6 (0.9-1.1)
== END 2022-09-04 13:40 | disposition home or self-care (01) ==
LOC: HO.ACS 13:24
PROVIDERS: PCP Internal Medicine; Visit Provider Internal Medicine
DX: Z79.01 Long term (current) use of anticoagulants (principal)

== ENCOUNTER → 2022-09-04 13:24 | Outpatient (BNVA) | payer MEDICARE, SELFPAY | PROVIDERS: PCP Internal Medicine; Visit Provider Internal Medicine | DX: I48.19 Other persistent atrial fibrillation (principal); Z86.718 Personal history of other venous thrombosis and embolism; Z51.81 Encounter for therapeutic drug level monitoring; Z79.01 Long term (current) use of anticoagulants | CPT/HCPCS: 85610; 99211 ==

== ENCOUNTER 2022-09-18 13:16 | Outpatient (AMB) | payer MEDICARE, SELFPAY ==
[2022-09-18 13:36] LABS: Prothrombin Time Whole Bld POC 29.3 sec (11.1-13.5); ~PT, ~INR - Anti Coag Clinic 2.4 (0.9-1.1)
--- NOTE | 2022-09-18 13:38 | MHC.OFFVISCO ---
Intake Intake Visit Reasons: Anticoagulation Allergies albuterol Adverse Reaction (Intermediate, Verified 09/18/22 13:30) Palpitations amoxicillin [From Augmentin] Adverse Reaction (Intermediate, Verified 09/18/22 13:30) Nausea and Vomiting, dizziness clavulanic acid [From Augmentin] Adverse Reaction (Intermediate, Verified 09/18/22 13:30) Nausea and Vomiting, dizziness Medication List - Last Reconciled 09/18/22 by Lottie Ardon RN acetaminophen 1,000 mg PO Q6H PRN atorvastatin 20 mg PO DAILY diltiazem HCl 120 mg PO DAILY docusate sodium 200 mg PO DAILY flecainide 50 mg PO BID 90 days fluticasone propion-salmeterol 500-50 mcg/dose (Wixela Inhub) 1 inh inhalation BID 90 days furosemide 20 mg PO BID levalbuterol HCl 1.25 mg (0.5 mL) inhalation RQ4H WHILE AWAKE 90 days multivitamin 1 tab PO DAILY potassium chloride ER 10 mEq PO DAILY sennosides (senna) 25.8 mg PO BEDTIME sodium chloride 0.9% 3 mL inhalation Q4H PRN 90 days warfarin 5 mg See Protocol PO SUMOWEFR@1800 warfarin 7.5 mg See Protocol PO TUTHSA@1800 Nursing Note Amb to ACS feeling well Medications and supplements reviewed No changes in health, diet, medications, or supplements, noted some bilat ankle foot swelling always like that Denies any unusual signs and symptoms of bruising, bleeding Denies any new Chest pain, SOB, or clotting INR: 2.4 in therapeutic range Nutritional guidance given: balance greens and reds in diet Dose: continue usual dosing;7.5 mg x 3 days and 5mg x 4 days F/U INR: 2 weeks Patient verbalizes understanding of instructions given with accurate read back/ teach back of dosing Anti-Coag Initial Assessment Social Hx Patient Tobacco Use Status: Former Tobacco user alcohol intake: current Alcohol intake frequency: a few times a week Coding Level of Care Code Est Patient Level 1 Diagnoses Current use of anticoagulant therapy Z79.01 Time Spent (min) 15 Results AMB INR Fingerstick AMB INR Fingerstick 2.4 Last Edit by Lottie Ardon RN on 09/18/22 13:37 interface failure Assessment & Plan Assessment & Plan (1) Current use of anticoagulant therapy: Code(s): Z79.01 - supervisor intermediates (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
== END 2022-09-18 13:45 | disposition home or self-care (01) ==
LOC: HO.ACS 13:16
PROVIDERS: PCP Internal Medicine; Visit Provider Internal Medicine
DX: Z79.01 Long term (current) use of anticoagulants (principal)

== ENCOUNTER → 2022-09-18 13:16 | Outpatient (BNVA) | payer MEDICARE, SELFPAY | PROVIDERS: PCP Internal Medicine; Visit Provider Internal Medicine | DX: I48.19 Other persistent atrial fibrillation (principal); Z86.718 Personal history of other venous thrombosis and embolism; Z79.01 Long term (current) use of anticoagulants; Z51.81 Encounter for therapeutic drug level monitoring | CPT/HCPCS: 85610; 99211 ==

== ENCOUNTER 2022-09-27 20:19 | Inpatient (IN) | payer MEDICARE, SELFPAY ==
--- NOTE | ~2022-09-27 | XR_ITS ---
EXAMINATION: XR CHEST CLINICAL INFORMATION: Cough. COMPARISON: 12/16/2021 TECHNIQUE: Frontal view of the chest was obtained. FINDINGS: The lung volumes are low. The cardiomediastinal silhouette is stable. There is consolidation at the left lung base which was seen previously. There is right lower lung field increased markings. There has been a previous median sternotomy. The bony structures and soft tissues are unremarkable XR/XR chest 1V IMPRESSION: Low lung volumes limits evaluation. Consolidation at the left lung base was present previously and may represent chronic atelectasis/scarring. Recurrent infiltrate considered less likely. Right lower lung field increased markings possibly chronic and/or technical.
--- NOTE | ~2022-09-27 | XR_ITS ---
EXAMINATION: XR CHEST CLINICAL INFORMATION: Shortness of breath COMPARISON: 09/27/2022 and selected priors through 2017 TECHNIQUE: AP portable upright view of the chest was obtained. FINDINGS: Chronic abnormal elevation of left diaphragm. Diaphragmatic paralysis can be associated with significant shortness of breath. Consider diaphragmatic fluoroscopy test. Prior open heart surgery. Nonspecific streaky lung markings most pronounced at the bases likely atelectasis. The artifact related to oxygen tubing projecting over the right chest. Gaseous distention of left upper quadrant bowel loop. XR/XR chest 1V IMPRESSION: Chronic abnormal elevation of the left diaphragm. Chronic nonspecific reticular markings.
[2022-09-27 20:37] VITALS: BP 136/68; PULSE 103; RESP 24; TEMP 38.3; O2SAT 89; BMI 37.9
--- NOTE | 2022-09-27 20:38 | ED.SOB ---
HPI - SOB/Dyspnea General Chief Complaint: Dyspnea Stated Complaint: shortness of breath Time Seen by Provider: 09/27/22 21:16 Source: patient and family Mode of arrival: wheelchair Limitations: no limitations History of Present Illness HPI Narrative: Patient comes to the emergency room complaining of shortness of breath. Patient states it has been going on for approximately 10 days now. It is ago, patient went to see his primary care physician, he was prescribed doxycycline and prednisone. Patient states that the coughing and sputum production keep getting much worse, now he has increasing oxygen need. Patient usually does not need oxygen at home, only when he has a COPD exacerbation or pneumonia. Patient states that he keeps close eye on his oxygen saturation, when he walks from the bed to the bathroom or any short distance, his oxygen saturation drops to 85%. Usually, his oxygen saturation at baseline is 92% without oxygen. At this time, patient is 2 L saturating 90%. Patient denies any chest pain. Patient states that also, a week ago his Lasix was increased for a week due to lower extremity edema. This has a temporary prescription for only 1 week Related Data Home Medications Medication Instructions Recorded Confirmed atorvastatin 20 mg tablet 20 mg PO DAILY 12/08/19 09/27/22 diltiazem HCl 120 mg 120 mg PO DAILY 12/08/19 09/27/22 capsule,extended release 24 hr docusate sodium 100 mg capsule 200 mg PO DAILY 12/08/19 09/27/22 sennosides 8.6 mg capsule (senna) 25.8 mg PO BEDTIME 12/08/19 09/27/22 potassium chloride 10 mEq 10 meq PO DAILY 12/15/20 09/27/22 tablet,extended release multivitamin 1 tab PO DAILY 06/15/21 09/27/22 warfarin 5 mg tablet 5 mg PO SUMOWEFR@1800 06/15/21 09/27/22 warfarin 5 mg tablet 7.5 mg PO TUTHSA@1800 06/15/21 09/27/22 acetaminophen 500 mg tablet 1,000 mg PO Q6H PRN Back Pain 12/17/21 09/27/22 furosemide 40 mg tablet 40 mg PO BID 09/27/22 09/27/22 Previous Rx's Medication Instructions Recorded sodium chloride 0.9 % for 3 ml inhalation Q4H PRN shortness 04/23/22 nebulization of breath or CONGESTION 90 days #270 mL flecainide 50 mg tablet 50 mg PO BID 90 days #180 tabs 06/20/22 levalbuterol HCl 1.25 mg/0.5 mL 1.25 mg (0.5 mL) inhalation RQ4H 07/11/22 solution for nebulization WHILE AWAKE copd 90 days #180 ea fluticasone 500 mcg-salmeterol 50 1 inh inhalation BID 90 days #3 ea 08/03/22 mcg/dose blistr powdr for inhalation (Wixela Inhub) Allergies Allergy/AdvReac Type Severity Reaction Status Date / Time albuterol AdvReac Intermediate Palpitation Verified 09/18/22 13:30 s amoxicillin [From Augmentin] AdvReac Intermediate Nausea and Verified 09/27/22 20:44 Vomiting, dizziness clavulanic acid AdvReac Intermediate Nausea and Verified 09/27/22 20:44 [From Augmentin] Vomiting, dizziness Review of Systems Review of Systems: Constitutional : No Weight loss, No Fever, No Chills, No Night Sweats, No Fatigue, No Malaise ENT/Mouth : No Hearing loss, No Ear Pain, No Nasal Congestion, No Sinus Pain, No Hoarseness, No sore throat, No Rhinorrhea, No Swallowing Difficulty Eyes: No Eye Pain, No Swelling, No Redness, No Foreign Body, No Discharge, No Vision Changes Cardiovascular : No Chest Pain, complaining of shortness of breath with exertion, lower extremity edema which is improving with Lasix Respiratory : Complaining of acute on chronic cough, with significant sputum production and increasing oxygen need Gastrointestinal : No Nausea, No Vomiting, No Diarrhea, No Constipation, No abdominal Pain, No Hematochezia, No Melena Genitourinary : no irregular bleeding, No Dysuria, No Urinary Frequency, No Hematuria, No Urinary Incontinence, No Urgency, No Flank Pain, No Urinary Flow Changes, No Hesitancy Musculoskeletal : No joint pain, No Myalgias, No Joint Swelling Skin : No Skin Lesions, No rash Neuro : No Weakness, No Numbness, No Paresthesias, No Loss of Consciousness, No Dizziness, No Headache Psych : No Anxiety/Panic, No Depression, No SI/HI/AH/VH, No Social Issues, Heme/Lymph: No Bruising, No Bleeding,No Lymphadenopathy Endocrine : No Polyuria, No Polydipsia, No Temperature Intolerance PMFSH Past Medical History Medical History (HFpEF) heart failure with preserved ejection fraction CHF exacerbation COPD (chronic obstructive pulmonary disease) Cough Lymphedema of both lower extremities Obesity (BMI 35.0-39.9 without comorbidity) DEREK on CPAP Paroxysmal atrial fibrillation Varicose veins of right lower extremity with inflammation Surgical History History of appendectomy Family History Family History Father No problems noted. Mother No problems noted. Sister No problems noted. Sister No problems noted. Son No problems noted. Daughter No problems noted. Social History Social History Household Members: Spouse and Family Housing: House Do you presently have visiting nurse or other home services: No Alcohol intake: current Alcohol intake frequency: a few times a week Alcohol type: beer Patient Tobacco Use Status: Former Tobacco user Advance Directives: No Advance Directives Information Provided: No service: Yes Current occupational status: retired Physical Exam Vital Signs: Vital Signs: Last Vital Signs Temp 98.0 F 09/27/22 23:04 Pulse 69 09/27/22 23:04 Resp 17 09/27/22 23:04 BP 119/71 09/27/22 23:04 Pulse Ox 100 09/27/22 23:04 O2 Del Method Room Air 09/27/22 23:04 O2 Flow Rate 2 09/27/22 21:12 BMI result Body Mass Index 37.9 Const: Other: Appearance: Alert. Oriented X3. No acute distress. Eyes: Pupils equal, round and reactive to light. ENT: Pharynx normal. Neck: Normal inspection. Neck supple. No lymph nodes noted. No crepitus CVS: Normal heart rate and rhythm. Pulses normal. Normal S1 and S2 Respiratory: No respiratory distress. Speaking in full sentences, continuously coughing. Bilateral rales, no crackles no significant wheezing Abdomen: Soft and nontender. No rigidity. No distention. Skin: Skin warm and dry. Normal skin color. Normal skin turgor. Extremities: Chronic lymphedema and venous stasis more obvious on the right leg, no pitting edema Neuro: Oriented X 3. No motor deficit. No sensory deficit. Moving all extremities. No slurred speech. CN 2 through 12 grossly intact Psych: calm, cooperative, normal affect Course Course Course Narrative: RME: 76yo m w/PMHx COPD w/supplemental O2 as needed, DEREK on CPAP, lymphedema, CHF, A.fib on Coumadin, DVT in RLE, c/o prouctive cough and persistent SOB x 1 week. Has been using home O2 more regularly. Saw PCP last week who started him on Doxy & Predisone taper w/o relief & 1 extra dose of Lasix. stated patient de-satting to 85% with exertion. Denies CP, fever febrile, tachycardic, 89% on RA, course cough noted, b/l LE pitting edema EKG, labs, CXR, blood Cx, Lactic ordered Full HPI, ROS and PE to be performed by primary ED provider. Medications Administered Generic Name Dose Route Start Last Admin Trade Name Freq PRN Reason Stop Dose Admin Sodium Chloride 1,000 mls @ 200 mls/hr 09/27/22 21:41 09/27/22 21:54 Ns IVCONT 09/28/22 02:40 200 mls/hr .Q5H ONE Administration Discontinued Medications Generic Name Dose Route Start Last Admin Trade Name Freq PRN Reason Stop Dose Admin Acetaminophen 650 mg 09/27/22 20:44 09/27/22 21:21 Acetaminophen 325 Mg Tablet PO 09/27/22 20:45 650 mg ONCE ONE Administration Ceftriaxone Sodium 1 gm/ 50 mls @ 100 mls/hr 09/27/22 20:44 09/27/22 21:22 Sodium Chloride IV 09/27/22 21:13 100 mls/hr ONCE ONE Administration Medical Decision Making Medical Decision Making [facility] Narrative: -my interpretation of chest x-ray, possible pleural effusion bilaterally, more obvious on the right, possible right lower lobe infiltrate. Ceftriaxone was already given to the patient. At this time, patient has a fairly normal blood pressure. Patient has history of CHF, we will not push fluids fast to avoid a CHF exacerbation. -chest x-ray shows consolidation at the left lung base, possibly chronic. However, based on physical exam, this may actually be pneumonia -patient is not at baseline, patient is more oxygen than he usually does, even on 2 L patient desaturates with minimal exertion. -I discussed the patient with Dr. Rosenthal, patient being admitted Differential Diagnosis Differential Diagnoses: The differential diagnosis associated with the presentation includes (CHF exacerbation, pneumonia, chronic lung disease, bronchitis) Admission/Observation Consideration of admission/observation: Escalation of care including admission/observation considered (Patient is requiring more oxygen than baseline, patient being admitted) Consult Healthcare Provider Management of the patient was discussed with: Hospitalist Lab Data MDM Lab Attestation statement: I reviewed the patient's lab results. 09/27/22 21:01 09/27/22 21:01 Labs: Lab Results 09/27/22 09/27/22 09/27/22 Range/Units 21:01 21:01 21:01 WBC 13.3 H (4.8-10.8) X10*3/uL RBC 4.66 (4.60-5.80) X10*6/uL Hgb 14.2 (14.0-18.0) g/dl Hct 43.1 (42.0-52.0) % MCV 92.5 (80.0-98.0) fL MCH 30.5 (27.0-33.0) pg MCHC 32.9 (31.0-36.0) g/dl RDW 14.8 (11.0-16.0) % Plt Count 166 (160-400) X10*3/uL MPV 9.6 (9.4-12.4) fL Immature Gran % (Auto) 0.5 H (0.0-0.4) % Neut % (Auto) 69.3 (45-73) % Lymph % (Auto) 6.2 L (20-40) % [place] % (Auto) 22.1 H (2-11) % Eos % (Auto) 1.6 (0-4) % Baso % (Auto) 0.3 (0-2) % Lymph # (Auto) 0.8 L (1.2-4.9) X10*3/uL [place] # (Auto) 2.9 H (0.1-1.2) X10*3/uL Eos # (Auto) 0.2 (0.0-0.4) X10*3/uL Baso # (Auto) 0.0 (0.0-0.2) X10*3/uL Abs Immat Gran (auto) 0.06 H (0.00-0.03) X10*3/uL Absolute Neuts (auto) 9.2 H (2.0-8.3) x10*3/uL Absolute Nucleated RBC 0.000 (0.0-0.012) X10*3/uL Nucleated RBC % (auto) 0.0 (0.0-0.2) /100WBC PT 30.7 H (11.1-13.3) SEC INR 2.5 H (0.9-1.1) Sodium 141 (135-145) mmol/L Potassium 4.3 (3.3-5.1) mmol/L Chloride 100 (96-108) mmol/L Carbon Dioxide 34 H (22-29) mmol/L Anion Gap 11 L (12-20) BUN 18 H (9-16) mg/dL Creatinine 1.04 (0.5-1.4) mg/dL Estim Creat Clear Calc 78.4 Estimated GFR > 60 Random Glucose 125 H (60-115) mg/dL Lactic Acid (0.5-2.0) mmol/L Calcium 9.6 D (8.4-10.2) mg/dL Magnesium 1.8 (1.6-2.6) mg/dL Total Bilirubin 1.1 H (0.0-1.0) mg/dL Direct Bilirubin 0.4 (0.0-0.5) mg/dL AST 14 (5-37) U/L ALT 18 (0-40) U/L Alkaline Phosphatase 74 (39-117) U/L Troponin I High Sens (<3.5-35.0) ng/L B-Natriuretic Peptide (<100) pg/mL Total Protein 7.1 (6.5-8.0) g/dL Albumin 3.9 (3.5-5.0) g/dL COVID-19 (ANGI) (Negative) COVID-19 Clin Com Influenza Type A (DONITA) (Negative) Influenza Type B (DONITA) (Negative) Influenza A & B Note 09/27/22 09/27/22 09/27/22 Range/Units 21:01 21:01 21:01 WBC (4.8-10.8) X10*3/uL RBC (4.60-5.80) X10*6/uL Hgb (14.0-18.0) g/dl Hct (42.0-52.0) % MCV (80.0-98.0) fL MCH (27.0-33.0) pg MCHC (31.0-36.0) g/dl RDW (11.0-16.0) % Plt Count (160-400) X10*3/uL MPV (9.4-12.4) fL Immature Gran % (Auto) (0.0-0.4) % Neut % (Auto) (45-73) % Lymph % (Auto) (20-40) % [place] % (Auto) (2-11) % Eos % (Auto) (0-4) % Baso % (Auto) (0-2) % Lymph # (Auto) (1.2-4.9) X10*3/uL [place] # (Auto) (0.1-1.2) X10*3/uL Eos # (Auto) (0.0-0.4) X10*3/uL Baso # (Auto) (0.0-0.2) X10*3/uL Abs Immat Gran (auto) (0.00-0.03) X10*3/uL Absolute Neuts (auto) (2.0-8.3) x10*3/uL Absolute Nucleated RBC (0.0-0.012) X10*3/uL Nucleated RBC % (auto) (0.0-0.2) /100WBC PT (11.1-13.3) SEC INR (0.9-1.1) Sodium (135-145) mmol/L Potassium (3.3-5.1) mmol/L Chloride (96-108) mmol/L Carbon Dioxide (22-29) mmol/L Anion Gap (12-20) BUN (9-16) mg/dL Creatinine (0.5-1.4) mg/dL Estim Creat Clear Calc Estimated GFR Random Glucose (60-115) mg/dL Lactic Acid 1.5 (0.5-2.0) mmol/L Calcium (8.4-10.2) mg/dL Magnesium (1.6-2.6) mg/dL Total Bilirubin (0.0-1.0) mg/dL Direct Bilirubin (0.0-0.5) mg/dL AST (5-37) U/L ALT (0-40) U/L Alkaline Phosphatase (39-117) U/L Troponin I High Sens < 2.7 (<3.5-35.0) ng/L B-Natriuretic Peptide 17 (<100) pg/mL Total Protein (6.5-8.0) g/dL Albumin (3.5-5.0) g/dL COVID-19 (ANGI) (Negative) COVID-19 Clin Com Influenza Type A (DONITA) (Negative) Influenza Type B (DONITA) (Negative) Influenza A & B Note 09/27/22 09/27/22 Range/Units 21:01 21:01 WBC (4.8-10.8) X10*3/uL RBC (4.60-5.80) X10*6/uL Hgb (14.0-18.0) g/dl Hct (42.0-52.0) % MCV (80.0-98.0) fL MCH (27.0-33.0) pg MCHC (31.0-36.0) g/dl RDW (11.0-16.0) % Plt Count (160-400) X10*3/uL MPV (9.4-12.4) fL Immature Gran % (Auto) (0.0-0.4) % Neut % (Auto) (45-73) % Lymph % (Auto) (20-40) % [place] % (Auto) (2-11) % Eos % (Auto) (0-4) % Baso % (Auto) (0-2) % Lymph # (Auto) (1.2-4.9) X10*3/uL [place] # (Auto) (0.1-1.2) X10*3/uL Eos # (Auto) (0.0-0.4) X10*3/uL Baso # (Auto) (0.0-0.2) X10*3/uL Abs Immat Gran (auto) (0.00-0.03) X10*3/uL Absolute Neuts (auto) (2.0-8.3) x10*3/uL Absolute Nucleated RBC (0.0-0.012) X10*3/uL Nucleated RBC % (auto) (0.0-0.2) /100WBC PT (11.1-13.3) SEC INR (0.9-1.1) Sodium (135-145) mmol/L Potassium (3.3-5.1) mmol/L Chloride (96-108) mmol/L Carbon Dioxide (22-29) mmol/L Anion Gap (12-20) BUN (9-16) mg/dL Creatinine (0.5-1.4) mg/dL Estim Creat Clear Calc Estimated GFR Random Glucose (60-115) mg/dL Lactic Acid (0.5-2.0) mmol/L Calcium (8.4-10.2) mg/dL Magnesium (1.6-2.6) mg/dL Total Bilirubin (0.0-1.0) mg/dL Direct Bilirubin (0.0-0.5) mg/dL AST (5-37) U/L ALT (0-40) U/L Alkaline Phosphatase (39-117) U/L Troponin I High Sens (<3.5-35.0) ng/L B-Natriuretic Peptide (<100) pg/mL Total Protein (6.5-8.0) g/dL Albumin (3.5-5.0) g/dL COVID-19 (ANGI) Negative (Negative) COVID-19 Clin Com See Note Influenza Type A (DONITA) Negative (Negative) Influenza Type B (DONITA) Negative (Negative) Influenza A & B Note See Note Independent Interpretation I performed an independent interpretation of an: Plain X-Ray (My interpretation of chest x-ray, possibly developing pneumonia in the right lower lobe) Radiology Impression Discussion of test interpretation with radiology: I have reviewed the radiologist's reading. Radiologist Impression: FINDINGS: The lung volumes are low. The cardiomediastinal silhouette is stable. There is consolidation at the left lung base which was seen previously. There is right lower lung field increased markings. There has been a previous median sternotomy. The bony structures and soft tissues are unremarkable XR/XR chest 1V IMPRESSION: Low lung volumes limits evaluation. Consolidation at the left lung base was present previously and may represent chronic atelectasis/scarring. Recurrent infiltrate considered less likely. ? Right lower lung field increased markings possibly chronic and/or technical. Independent Historian Clinical information obtained from an independent historian. History obtained from or confirmed by: Spouse Critical Care Time Critical Care Time Critical Care Time: Yes Total Critical Care Time: 60 Attestation: I have personally provided critical care time. Time includes review of lab data, radiology results, discussion with consultants, and monitoring for potential decompensation. Intervention performed as documented. Discharge Plan Discharge Clinical Impression: Pneumonia Patient Disposition: Admitted As Inpatient Prescriptions: No Action sodium chloride 0.9 % solution for nebulization 3 ml inhalation Q4H PRN (Reason: shortness of breath or CONGESTION) 90 Days Qty: 270 3RF flecainide 50 mg tablet 50 mg PO BID 90 Days Qty: 180 1RF levalbuterol HCl 1.25 mg/0.5 mL solution for nebulization 1.25 mg inhalation RQ4H WHILE AWAKE 90 Days Qty: 180 5RF fluticasone propion-salmeterol [Wixela Inhub] 500-50 mcg/dose blister with device 1 inh inhalation BID 90 Days Qty: 3 1RF acetaminophen 500 mg Tablet 1,000 mg PO Q6H PRN (Reason: Back Pain) multivitamin Tablet 1 tab PO DAILY warfarin 5 mg tablet 5 mg PO SUMOWEFR@1800 Protocol: Dose Management Condition: Saturday (Week One) Dose/Route: 5 mg Instruction: 1 x 5 mg tablet Condition: Saturday Dose/Route: 5 mg Instruction: 1 x 5 mg tablet Condition: Saturday Dose/Route: 7.5 mg Instruction: 1.5 x 5 mg tablets Condition: Saturday Dose/Route: 5 mg Instruction: 1 x 5 mg tablet Condition: Dose/Route: 7.5 mg Instruction: 1.5 x 5 mg tablets Condition: Saturday Dose/Route: 5 mg Instruction: 1 x 5 mg tablet Condition: Saturday Dose/Route: 7.5 mg Instruction: 1.5 x 5 mg tablets Condition: Saturday (Week Two) Dose/Route: 5 mg Instruction: 1 x 5 mg tablet Condition: Saturday Dose/Route: 5 mg Instruction: 1 x 5 mg tablet Condition: Saturday Dose/Route: 7.5 mg Instruction: 1.5 x 5 mg tablets Condition: Saturday Dose/Route: 5 mg Instruction: 1 x 5 mg tablet Condition: Dose/Route: 7.5 mg Instruction: 1.5 x 5 mg tablets Condition: Saturday Dose/Route: 5 mg Instruction: 1 x 5 mg tablet Condition: Saturday Dose/Route: 7.5 mg Instruction: 1.5 x 5 mg tablets Protocol Text: Adjustment Start Date: Saturday09/18/22 INR Value: 2.4 INR Date: 09/18/22 Recheck Date: 10/02/22 Additional Instructions: INR is in range continue same dosing balance greens and reds in diet GOOD [employer]!!!! warfarin 5 mg tablet 7.5 mg PO TUTHSA@1800 Protocol: Dose Management Condition: Saturday (Week One) Dose/Route: 5 mg Instruction: 1 x 5 mg tablet Condition: Saturday Dose/Route: 5 mg Instruction: 1 x 5 mg tablet Condition: Saturday Dose/Route: 7.5 mg Instruction: 1.5 x 5 mg tablets Condition: Saturday Dose/Route: 5 mg Instruction: 1 x 5 mg tablet Condition: Dose/Route: 7.5 mg Instruction: 1.5 x 5 mg tablets Condition: Saturday Dose/Route: 5 mg Instruction: 1 x 5 mg tablet Condition: Saturday Dose/Route: 7.5 mg Instruction: 1.5 x 5 mg tablets Condition: Saturday (Week Two) Dose/Route: 5 mg Instruction: 1 x 5 mg tablet Condition: Saturday Dose/Route: 5 mg Instruction: 1 x 5 mg tablet Condition: Saturday Dose/Route: 7.5 mg Instruction: 1.5 x 5 mg tablets Condition: Saturday Dose/Route: 5 mg Instruction: 1 x 5 mg tablet Condition: Dose/Route: 7.5 mg Instruction: 1.5 x 5 mg tablets Condition: Saturday Dose/Route: 5 mg Instruction: 1 x 5 mg tablet Condition: Saturday Dose/Route: 7.5 mg Instruction: 1.5 x 5 mg tablets Protocol Text: Adjustment Start Date: Saturday09/18/22 INR Value: 2.4 INR Date: 09/18/22 Recheck Date: 10/02/22 Additional Instructions: INR is in range continue same dosing balance greens and reds in diet [employer]!!!! furosemide 40 mg tablet 40 mg PO BID senna 8.6 mg capsule 25.8 mg PO BEDTIME docusate sodium 100 mg capsule 200 mg PO DAILY diltiazem HCl 120 mg capsule,extended release 24hr 120 mg PO DAILY atorvastatin 20 mg tablet 20 mg PO DAILY potassium chloride 10 mEq tablet extended release 10 meq PO DAILY
--- NOTE | 2022-09-27 20:43 | ECG_ITS ---
Test Reason : SOB Blood Pressure : / mmHG Vent. Rate : 104 BPM Atrial Rate : 000 BPM P-R Int : 000 ms QRS Dur : 132 ms QT Int : 354 ms P-R-T Axes : 000 017 030 degrees QTc Int : 465 ms Sinus tachycardia Right bundle branch block Abnormal ECG When compared with ECG of 16-DEC-2021 23:50, Heart rate has increased Referred By: Amparo Puri Electronically Signed By:EDMOND REYES
--- NOTE | 2022-09-27 21:07 | MHC.EDTECH ---
PATIENT COVID /FLU SWAB COLLECTED ,BLOOD DRAWN ,1SET CULTURE AND LACTIC ACID DRAWN AND SENT TO LAB ,PT WAS BROUGHT BACK TO ROOM #07 .
[2022-09-27 21:08] LABS: MANUAL DIFF FLAG NO
[2022-09-27 21:09] LABS: Basophils Percent Auto 0.3 % (0-2); Eosinophils Absolute Auto 0.2 X10*3/uL (0.0-0.4); Eosinophils Percent Auto 1.6 % (0-4); Hematocrit 43.1 % (42.0-52.0); Hemoglobin 14.2 g/dl (14.0-18.0); Imm Gran Abs Auto 0.06 X10*3/uL (0.00-0.03); Imm Gran Pct Auto 0.5 % (0.0-0.4); Lymphocytes Absolute Auto 0.8 X10*3/uL (1.2-4.9); Lymphocytes Percent Auto 6.2 % (20-40); Mean Corpuscular HGB Conc 32.9 g/dl (31.0-36.0); Mean Corpuscular Hemoglobin 30.5 pg (27.0-33.0); Mean Corpuscular Volume 92.5 fL (80.0-98.0); Mean Platelet Volume 9.6 fL (9.4-12.4); Monocytes Absolute Auto 2.9 X10*3/uL (0.1-1.2); Monocytes Percent Auto 22.1 % (2-11); Neutrophils Absolute Auto 9.2 x10*3/uL (2.0-8.3); Neutrophils Percent Auto 69.3 % (45-73); Platelet Count 166 X10*3/uL (160-400); Red Blood Count 4.66 X10*6/uL (4.60-5.80); Red Cell Distribution Width 14.8 % (11.0-16.0); White Blood Count 13.3 X10*3/uL (4.8-10.8)
[2022-09-27 21:12] VITALS: BP 154/65; PULSE 104; RESP 17; TEMP 38.2; O2SAT 90
[2022-09-27 21:16] LABS: INTERNATIONAL NORM RATIO 2.5 (0.9-1.1); Prothrombin Time 30.7 SEC (11.1-13.3)
[2022-09-27 21:20] LABS: Lactic Acid 1.5 mmol/L (0.5-2.0)
[2022-09-27] MEDS: Acetaminophen 325 MG TABLET 650 MG PO (21:21)
[2022-09-27] MEDS: cefTRIAXone sodium 1 GM in 0.9 % Sodium Chloride 50 ML IV (21:22)
[2022-09-27 21:26] LABS: Alanine Aminotransferase 18 U/L (0-40); Albumin Level 3.9 g/dL (3.5-5.0); Alkaline Phosphatase 74 U/L (39-117); Anion Gap 11 (12-20); Aspartate Amino Transferase 14 U/L (5-37); Bilirubin Direct 0.4 mg/dL (0.0-0.5); Bilirubin Total 1.1 mg/dL (0.0-1.0); Blood Urea Nitrogen 18 mg/dL (9-16); Calcium 9.6 mg/dL (8.4-10.2); Carbon Dioxide 34 mmol/L (22-29); Chloride 100 mmol/L (96-108); Creatinine Clr Calc Pharmacy 78.4; Estimated Glomerular Filt Rate > 60; Glucose Random 125 mg/dL (60-115); Magnesium 1.8 mg/dL (1.6-2.6); Potassium 4.3 mmol/L (3.3-5.1); Sodium 141 mmol/L (135-145); Total Protein 7.1 g/dL (6.5-8.0)
[2022-09-27 21:31] LABS: B Type Natriuretic Peptide 17 pg/mL (<100)
--- NOTE | 2022-09-27 21:46 | PHA.MEDREC ---
Pharmacy Consult ? Medication Reconciliation Pharmacy has completed the medication reconciliation. Patient confirmed all medications. Reports he took all his evening pill todays. Lynn Gaspar, GabiD
[2022-09-27 21:47] LABS: Troponin-I High Sensitivity < 2.7 ng/L (<3.5-35.0)
[2022-09-27] MEDS: 0.9 % Sodium Chloride 1,000 ML 200 ML IVCONT (21:54)
[2022-09-27 22:07] LABS: COVID-19 Test Negative (Negative); IDNOW Serial# 08D9AD1C; IDNOW Serial# BCCEAD1C; Influenza A Negative (Negative); Influenza B2 Negative (Negative)
--- NOTE | 2022-09-27 22:52 | P.HPHOSP_ITS ---
History of Present Illness Date of Service: 09/27/22 Chief Complaint: Dyspnea This is a 76-year-old male with pertinent history of COPD not on home oxygen, congestive heart failure with preserved ejection fraction, atrial fibrillation on anticoagulation, mixed hyperlipidemia who presents to the emergency [facility] for evaluation of dyspnea and cough. Patient states that about 10 days prior to presentation he was having dyspnea with wheezing. He was prescribed prednisone and doxycycline by his PCP for suspected COPD exacerbation. Patient states his breathing improved and wheezing resolved but 2 days after stopping doxycycline, he began having cough with yellowish sputum production. It was associated with dyspnea, worse with exertion. Also has fevers and chills. He denies chest discomfort, palpitations, abdominal pain, changes in urinary or bowel habits. In the emergency department, patient was found to be hypoxemic and septic Review of Systems Constitutional: Constitutional: Reports chills, Reports fatigue, Reports fever(s) and Reports malaise Cardiovascular: Cardiovascular: Reports dyspnea on exertion Respiratory: Respiratory: Reports cough and Reports dyspnea on exertion Gastrointestinal: Gastrointestinal: Reports no additional gastrointestinal complaints Genitourinary: Genitourinary: Reports no additional male genitourinary complaints Endocrine: Endocrine: Reports fatigue [facility] Medical History (HFpEF) heart failure with preserved ejection fraction CHF exacerbation COPD (chronic obstructive pulmonary disease) Cough Lymphedema of both lower extremities Obesity (BMI 35.0-39.9 without comorbidity) DEREK on CPAP Paroxysmal atrial fibrillation Varicose veins of right lower extremity with inflammation Family History Father No problems noted. Mother No problems noted. Sister No problems noted. Sister No problems noted. Son No problems noted. Daughter No problems noted. Surgical History History of appendectomy Social History Household Members: Spouse and Family Housing: House Do you presently have visiting nurse or other home services: No Alcohol intake: current Alcohol intake frequency: a few times a week Alcohol type: beer Patient Tobacco Use Status: Former Tobacco user Advance Directives: No Advance Directives Information Provided: No service: Yes Current occupational status: retired Meds Allergies Allergy/AdvReac Type Severity Reaction Status Date / Time albuterol AdvReac Intermediate Palpitation Verified 09/18/22 13:30 s amoxicillin [From Augmentin] AdvReac Intermediate Nausea and Verified 09/27/22 20:44 Vomiting, dizziness clavulanic acid AdvReac Intermediate Nausea and Verified 09/27/22 20:44 [From Augmentin] Vomiting, dizziness Active Medications: Current Medications Sodium Chloride (Ns) 1,000 mls @ 200 mls/hr IVCONT .Q5H ONE Stop: 09/28/22 02:40 Last Admin: 09/27/22 21:54 Dose: 200 mls/hr Pharmacy Consult (Consult Rx Perform Med Rec) 1 each MISCELLANE ONCE PRN PRN Reason: Consult order Home Medications Medication Instructions Recorded Confirmed Last Taken Type atorvastatin 20 mg tablet 20 mg PO DAILY 12/08/19 09/27/22 09/27/22 History diltiazem HCl 120 mg 120 mg PO DAILY 12/08/19 09/27/22 09/27/22 History capsule,extended release 24 hr docusate sodium 100 mg capsule 200 mg PO DAILY 12/08/19 09/27/22 09/27/22 History sennosides 8.6 mg capsule (senna) 25.8 mg PO BEDTIME 12/08/19 09/27/22 09/27/22 History potassium chloride 10 mEq 10 meq PO DAILY 12/15/20 09/27/22 09/27/22 History tablet,extended release multivitamin 1 tab PO DAILY 06/15/21 09/27/22 09/27/22 History warfarin 5 mg tablet 5 mg PO SUMOWEFR@1800 06/15/21 09/27/22 09/26/22 History warfarin 5 mg tablet 7.5 mg PO TUTHSA@1800 06/15/21 09/27/22 09/27/22 History acetaminophen 500 mg tablet 1,000 mg PO Q6H PRN Back Pain 12/17/21 09/27/22 09/27/22 History furosemide 40 mg tablet 40 mg PO BID 09/27/22 09/27/22 09/27/22 History Physical Exam Vital Signs and Narrative: Vital Signs: Last Vital Signs Temp 100.7 F H 09/27/22 21:12 Pulse 104 H 08/17/23 21:12 Resp 17 09/27/22 21:12 BP 154/65 H 09/27/22 21:12 Pulse Ox 90 L 09/27/22 21:12 O2 Del Method Nasal Cannula 09/27/22 21:12 O2 Flow Rate 2 09/27/22 21:12 BMI result Body Mass Index 37.9 Middle-aged male lying in bed in mild distress on supplemental oxygen Neck supple, no JVD Irregularly irregular, S1-S2 heard Right-sided crackles without wheezing Abdomen soft nontender, no guarding, no rigidity Patient is awake, alert and oriented to self, place, time and person ; no focal motor deficit Psych: Normal mood No pedal edema Results Labs 09/27/22 21:01 09/27/22 21:01 Labs: Laboratory Results - last 24 hr 09/27/22 09/27/22 09/27/22 21:01 21:01 21:01 MCV 92.5 MCH 30.5 MCHC 32.9 RDW 14.8 Plt Count 166 MPV 9.6 Immature Gran % (Auto) 0.5 H Neut % (Auto) 69.3 Lymph % (Auto) 6.2 L [place] % (Auto) 22.1 H Eos % (Auto) 1.6 Baso % (Auto) 0.3 Lymph # (Auto) 0.8 L [place] # (Auto) 2.9 H Eos # (Auto) 0.2 Baso # (Auto) 0.0 Abs Immat Gran (auto) 0.06 H Absolute Neuts (auto) 9.2 H Absolute Nucleated RBC 0.000 Nucleated RBC % (auto) 0.0 PT 30.7 H INR 2.5 H Anion Gap 11 L Estim Creat Clear Calc 78.4 Estimated GFR > 60 Random Glucose 125 H Lactic Acid Calcium 9.6 D Magnesium 1.8 Total Bilirubin 1.1 H Direct Bilirubin 0.4 AST 14 ALT 18 Alkaline Phosphatase 74 B-Natriuretic Peptide Total Protein 7.1 Albumin 3.9 COVID-19 (ANGI) COVID-19 Clin Com Influenza Type A (DONITA) Influenza Type B (DONITA) Influenza A & B Note 09/27/22 09/27/22 09/27/22 21:01 21:01 21:01 MCV MCH MCHC RDW Plt Count MPV Immature Gran % (Auto) Neut % (Auto) Lymph % (Auto) [place] % (Auto) Eos % (Auto) Baso % (Auto) Lymph # (Auto) [place] # (Auto) Eos # (Auto) Baso # (Auto) Abs Immat Gran (auto) Absolute Neuts (auto) Absolute Nucleated RBC Nucleated RBC % (auto) PT INR Anion Gap Estim Creat Clear Calc Estimated GFR Random Glucose Lactic Acid 1.5 Calcium Magnesium Total Bilirubin Direct Bilirubin AST ALT Alkaline Phosphatase B-Natriuretic Peptide 17 Total Protein Albumin COVID-19 (ANGI) COVID-19 Clin Com Influenza Type A (DONITA) Negative Influenza Type B (DONITA) Negative Influenza A & B Note See Note 09/27/22 21:01 MCV MCH MCHC RDW Plt Count MPV Immature Gran % (Auto) Neut % (Auto) Lymph % (Auto) [place] % (Auto) Eos % (Auto) Baso % (Auto) Lymph # (Auto) [place] # (Auto) Eos # (Auto) Baso # (Auto) Abs Immat Gran (auto) Absolute Neuts (auto) Absolute Nucleated RBC Nucleated RBC % (auto) PT INR Anion Gap Estim Creat Clear Calc Estimated GFR Random Glucose Lactic Acid Calcium Magnesium Total Bilirubin Direct Bilirubin AST ALT Alkaline Phosphatase B-Natriuretic Peptide Total Protein Albumin COVID-19 (ANGI) Negative COVID-19 Clin Com See Note Influenza Type A (DONITA) Influenza Type B (DONITA) Influenza A & B Note Imaging Radiologist's Impressions: Impressions Chest X-Ray 09/27/22 21:32 IMPRESSION: Low lung volumes limits evaluation. Consolidation at the left lung base was present previously and may represent chronic atelectasis/scarring. Recurrent infiltrate considered less likely. Right lower lung field increased markings possibly chronic and/or technical. Assessment and Plan (1) Pneumonia: Status: Acute Plan This is a 76-year-old male with pertinent history of COPD not on home oxygen, congestive heart failure with preserved ejection fraction, atrial fibrillation on anticoagulation, mixed hyperlipidemia who presents to the emergency department for evaluation of dyspnea and cough. #. Sepsis and acute hypoxemic respiratory failure due to community-acquired pneumonia. Will admit patient and initiate empiric IV antibiotics. Resuscitated with IV crystalloids. Lactic acid and blood culture obtained. Monitor oxygen and wean as tolerated. Maintain oxygen saturation greater than 88%. Sputum culture pending #. Congestive heart failure with preserved ejection fraction. Holding Lasix in the setting of sepsis. Resume as appropriate #. Atrial fibrillation on anticoagulation. Monitor INR and continue Coumadin. Rate controlled in the ER #. Mixed hyperlipidemia. On statin DVT prophylaxis: On Coumadin Full Code Admit as inpatient and will require two night minimum hospital stay for supplemental oxygen and IV antibiotics Time Spent With Patient Time: Total time managing care of this patient today ____ minutes. Quality Stroke Does the patient have a stroke diagnosis?: No VTE Prior VTE?: No VTE Risk Level:: Medical - moderate - high VTE Device Contraindication: Treatment Not Indicated VTE Drug Contraindication: N/A - Med Ordered
[2022-09-27 23:04] VITALS: BP 119/71; PULSE 69; RESP 17; TEMP 36.7; O2SAT 100
[2022-09-27] MEDS: Azithromycin 500 MG in 0.9 % Sodium Chloride 250 ML 125 MG IV (23:39)
[2022-09-27] MEDS: 0.9 % Sodium Chloride Flush 3 ML SYRINGE IVFLUSH (23:45)
[2022-09-28] VITALS (11 sets, daily range): BP systolic 114–141; BP diastolic 57–66; PULSE 81–102; RESP 16–24; TEMP 36.4–38.1; O2SAT 90–97; BMI 38.2
--- NOTE | 2022-09-28 01:14 | PC.NURSE ---
Report to Marian Pompa RN on [facility] for continued care.
[2022-09-28 06:43] LABS: Basophils Percent Auto 0.3 % (0-2); Eosinophils Absolute Auto 0.2 X10*3/uL (0.0-0.4); Eosinophils Percent Auto 1.8 % (0-4); Hematocrit 39.3 % (42.0-52.0); Hemoglobin 12.9 g/dl (14.0-18.0); Imm Gran Abs Auto 0.08 X10*3/uL (0.00-0.03); Imm Gran Pct Auto 0.7 % (0.0-0.4); Lymphocytes Absolute Auto 0.8 X10*3/uL (1.2-4.9); MANUAL DIFF FLAG SCAN; Mean Corpuscular HGB Conc 32.8 g/dl (31.0-36.0); Mean Corpuscular Hemoglobin 30.8 pg (27.0-33.0); Mean Corpuscular Volume 93.8 fL (80.0-98.0); Monocytes Absolute Auto 3.3 X10*3/uL (0.1-1.2); Monocytes Percent Auto 28.1 % (2-11); Neutrophils Absolute Auto 7.4 x10*3/uL (2.0-8.3); Neutrophils Percent Auto 62.1 % (45-73); Platelet Count 145 X10*3/uL (160-400); Red Blood Count 4.19 X10*6/uL (4.60-5.80); Red Cell Distribution Width 14.9 % (11.0-16.0); SCAN SMEAR FLAG 1; White Blood Count 11.9 X10*3/uL (4.8-10.8)
[2022-09-28 06:48] LABS: INTERNATIONAL NORM RATIO 2.7 (0.9-1.1); Prothrombin Time 33.3 SEC (11.1-13.3)
[2022-09-28 06:55] LABS: Anion Gap 11 (12-20); Blood Urea Nitrogen 18 mg/dL (9-16); Calcium 8.8 mg/dL (8.4-10.2); Carbon Dioxide 32 mmol/L (22-29); Chloride 105 mmol/L (96-108); Creatinine Clr Calc Pharmacy 97.5; Estimated Glomerular Filt Rate > 60; Glucose Random 92 mg/dL (60-115); Potassium 4.6 mmol/L (3.3-5.1); Sodium 143 mmol/L (135-145)
[2022-09-28 07:17] LABS: SLIDE REVIEW VERIFIED
[2022-09-28] MEDS: Fluticasone/Vilanterol 200/25 BLST.W.DEV 1 PUFF INHALE (07:51)
[2022-09-28] MEDS: Multivitamin TABLET 1 TAB PO (08:43)
[2022-09-28] MEDS: Docusate Sodium 100 MG CAPSULE 200 MG PO (08:43)
[2022-09-28] MEDS: Flecainide Acetate 50 MG TABLET PO ×2 (08:43→20:59)
[2022-09-28] MEDS: Atorvastatin Calcium 20 MG TABLET PO (08:44)
[2022-09-28] MEDS: dilTIAZem HCL CD 120 MG CAP.ER.DEG PO (08:44)
[2022-09-28] MEDS: 0.9 % Sodium Chloride Flush 3 ML SYRINGE IVFLUSH ×2 (08:44→17:32)
--- NOTE | 2022-09-28 09:23 | MHC.CM.PN ---
Addendum entered by Catrina Boo 09/28/22 09:26: IMM delivered 09/28 Original Note: This typewriter tester met with patient for CM assessment. Patient from home- lives with , granddaughter & great grandson. No services prior to hospitalization. Has oxygen 2L that he uses PRN through [employer]. HCP copy requested. uses cane and walker around the house. [place]. D/C plan- home no services. to transport.
--- NOTE | 2022-09-28 09:42 | P.PNIM_ITS ---
Subjective Subjective Date of Service: 09/28/22 Interval History: f/u sepsis, PNA, respiratory failure overall is feeling better, Hypoxia improved Physical Exam Vital Signs: Vital Signs: Last Vital Signs Temp 98.5 F 09/28/22 07:23 Pulse 94 09/28/22 07:51 Resp 16 09/28/22 07:51 BP 130/66 09/28/22 07:23 Pulse Ox 96 09/28/22 07:23 O2 Del Method Room Air 09/28/22 07:23 O2 Flow Rate 2 09/28/22 02:36 BMI result Body Mass Index 38.2 Const: Other: Appearance: Alert. Oriented X3. No acute distress. s CVS: Normal heart rate and rhythm. Pulses normal. Normal S1 and S2 Respiratory: No respiratory distress. Speaking in full sentences, continuously coughing. Abdomen: Soft and nontender. No rigidity. No distention. Skin: Skin warm and dry. Normal skin color. Normal skin turgor. Extremities: Chronic lymphedema and venous stasis more obvious on the right leg, no pitting edema Neuro: Oriented X 3. No motor deficit. No sensory deficit. Moving all extremities. No slurred speech. CN 2 through 12 grossly intact Psych: calm, cooperative, normal affect Objective Data Active Medications Acetaminophen (Acetaminophen 325 Mg Tablet) 650 mg PO Q6H PRN PRN Reason: Pain, Mild (Pain Scale 1-3) Atorvastatin Calcium (Atorvastatin Calcium 20 Mg Tablet) 20 mg PO DAILY [facility] Last Admin: 09/28/22 08:44 Dose: 20 mg Documented By: MARIA D Diltiazem HCl (Diltiazem Hcl Cd 120 Mg Cap.Er.Deg) 120 mg PO DAILY [facility]; Protocol Last Admin: 09/28/22 08:44 Dose: 120 mg Documented By: MARIA D Docusate Sodium (Docusate Sodium 100 Mg Capsule) 200 mg PO DAILY [facility] Last Admin: 09/28/22 08:43 Dose: 200 mg Documented By: MARIA D Flecainide Acetate (Flecainide Acetate 50 Mg Tablet) 50 mg PO BID [facility] Last Admin: 09/28/22 08:43 Dose: 50 mg Documented By: MARIA D Fluticasone/Vilanterol (Fluticasone/Vilanterol 200/25 Blst.W.Dev) 1 puff INHALE DAILY [facility] Last Admin: 09/28/22 07:51 Dose: 1 puff Documented By: TELLY Ceftriaxone Sodium 1 gm/ (Sodium Chloride) 50 mls @ 100 mls/hr IV Q24H [facility] Azithromycin 500 mg/ Sodium (Chloride) 250 mls @ 125 mls/hr IV Q24H [facility] Last Infusion: 09/28/22 01:40 Dose: 0 mls/hr Documented By: MAIKOL Levalbuterol HCl (Levalbuterol Hcl 1.25 Mg/3 Ml Vial.Neb) 1.25 mg INHALE RQ4H WHILE AWAKE [facility] Melatonin (Melatonin 3 Mg Tablet) 6 mg PO BEDTIME PRN PRN Reason: Insomnia Multivitamins/Vitamin C (Multivitamin Tablet) 1 tab PO DAILY [facility] Last Admin: 09/28/22 08:43 Dose: 1 tab Documented By: MARIA D Ondansetron HCl (Ondansetron Hcl 4 Mg/2 Ml Vial) 4 mg IVPUSH Q8H PRN PRN Reason: Nausea and Vomiting Pharmacy Consult (Consult Rx Perform Med Rec) 1 each MISCELLANE ONCE PRN PRN Reason: Consult order Senna (Sennosides 8.6 Mg Tablet) 17.2 mg PO BEDTIME [facility] Sodium Chloride (0.9 % Sodium Chloride Flush 3 Ml Syringe) 3 ml IVFLUSH QSHIFT [facility] Last Admin: 09/28/22 08:44 Dose: 3 ml Documented By: MARIA D Warfarin Sodium (Warfarin Sodium 5 Mg Tablet) 5 mg PO SUMOWEFR@1800 [facility] Warfarin Sodium (Warfarin Sodium 7.5 Mg Tablet) 7.5 mg PO TUTHSA@1800 [facility] Labs 09/28/22 06:32 09/28/22 06:32 Labs: Laboratory Results - last 24 hr 09/27/22 09/27/22 09/27/22 21:01 21:01 21:01 MCV 92.5 MCH 30.5 MCHC 32.9 RDW 14.8 Plt Count 166 MPV 9.6 Immature Gran % (Auto) 0.5 H Neut % (Auto) 69.3 Lymph % (Auto) 6.2 L [place] % (Auto) 22.1 H Eos % (Auto) 1.6 Baso % (Auto) 0.3 Lymph # (Auto) 0.8 L [place] # (Auto) 2.9 H Eos # (Auto) 0.2 Baso # (Auto) 0.0 Abs Immat Gran (auto) 0.06 H Absolute Neuts (auto) 9.2 H Absolute Nucleated RBC 0.000 Nucleated RBC % (auto) 0.0 Smear Tech's Comments PT 30.7 H INR 2.5 H Anion Gap 11 L Estim Creat Clear Calc 78.4 Estimated GFR > 60 Random Glucose 125 H Lactic Acid Calcium 9.6 D Magnesium 1.8 Total Bilirubin 1.1 H Direct Bilirubin 0.4 AST 14 ALT 18 Alkaline Phosphatase 74 B-Natriuretic Peptide Total Protein 7.1 Albumin 3.9 COVID-19 (ANGI) COVID-19 Clin Com Influenza Type A (DONITA) Influenza Type B (DONITA) Influenza A & B Note 09/27/22 09/27/22 09/27/22 21:01 21:01 21:01 MCV MCH MCHC RDW Plt Count MPV Immature Gran % (Auto) Neut % (Auto) Lymph % (Auto) [place] % (Auto) Eos % (Auto) Baso % (Auto) Lymph # (Auto) [place] # (Auto) Eos # (Auto) Baso # (Auto) Abs Immat Gran (auto) Absolute Neuts (auto) Absolute Nucleated RBC Nucleated RBC % (auto) Smear Tech's Comments PT INR Anion Gap Estim Creat Clear Calc Estimated GFR Random Glucose Lactic Acid 1.5 Calcium Magnesium Total Bilirubin Direct Bilirubin AST ALT Alkaline Phosphatase B-Natriuretic Peptide 17 Total Protein Albumin COVID-19 (ANGI) COVID-19 Clin Com Influenza Type A (DONITA) Negative Influenza Type B (DONITA) Negative Influenza A & B Note See Note 09/27/22 09/28/22 09/28/22 21:01 06:32 06:32 MCV 93.8 MCH 30.8 MCHC 32.8 RDW 14.9 Plt Count 145 L MPV 10.0 Immature Gran % (Auto) 0.7 H Neut % (Auto) 62.1 Lymph % (Auto) 7.0 L [place] % (Auto) 28.1 H Eos % (Auto) 1.8 Baso % (Auto) 0.3 Lymph # (Auto) 0.8 L [place] # (Auto) 3.3 H Eos # (Auto) 0.2 Baso # (Auto) 0.0 Abs Immat Gran (auto) 0.08 H Absolute Neuts (auto) 7.4 Absolute Nucleated RBC 0.000 Nucleated RBC % (auto) 0.0 Smear Tech's Comments VERIFIED PT 33.3 H INR 2.7 H Anion Gap Estim Creat Clear Calc Estimated GFR Random Glucose Lactic Acid Calcium Magnesium Total Bilirubin Direct Bilirubin AST ALT Alkaline Phosphatase B-Natriuretic Peptide Total Protein Albumin COVID-19 (ANGI) Negative COVID-19 Clin Com See Note Influenza Type A (DONITA) Influenza Type B (DONITA) Influenza A & B Note 09/28/22 06:32 MCV MCH MCHC RDW Plt Count MPV Immature Gran % (Auto) Neut % (Auto) Lymph % (Auto) [place] % (Auto) Eos % (Auto) Baso % (Auto) Lymph # (Auto) [place] # (Auto) Eos # (Auto) Baso # (Auto) Abs Immat Gran (auto) Absolute Neuts (auto) Absolute Nucleated RBC Nucleated RBC % (auto) Smear Tech's Comments PT INR Anion Gap 11 L Estim Creat Clear Calc 97.5 Estimated GFR > 60 Random Glucose 92 Lactic Acid Calcium 8.8 D Magnesium Total Bilirubin Direct Bilirubin AST ALT Alkaline Phosphatase B-Natriuretic Peptide Total Protein Albumin COVID-19 (ANGI) COVID-19 Clin Com Influenza Type A (DONITA) Influenza Type B (DONITA) Influenza A & B Note Assessment and Plan (1) Sepsis: Status: Acute Plan This is a 76-year-old male with pertinent history of COPD not on home oxygen, congestive heart failure with preserved ejection fraction, atrial fibrillation on anticoagulation, mixed hyperlipidemia who presents to the emergency department for evaluation of dyspnea and cough. #Sepsis due to PNA, clinically improving. continue Ceftriaxone and Azithro started 09/27 #Acute hypoxic resp failure due to PNA and some component of COPD, O2 to maintain sat 88 to 93, Bronchidlators PRN and low dose Prednisone #Congestive heart failure with preserved ejection fraction. No acute exacerbation, resume Lasix # Atrial fibrillation on anticoagulation. rate controled, couamdin for stroke prevention, Monitor INR # Mixed hyperlipidemia. On statin DVT prophylaxis: On Coumadin Full Code Need for inpatient: Sepsis, PNA acute resp failure hypoxia, need IV Abx, and monitoring of O2 Time Spent With Patient Time: Total time managing care of this patient today ____ minutes. Quality Stroke Does the patient have a stroke diagnosis?: No VTE Prior VTE?: No VTE Risk Level:: Medical - moderate - high VTE Device Contraindication: Treatment Not Indicated VTE Drug Contraindication: N/A - Med Ordered
[2022-09-28] MEDS: levalbuterol HCL 1.25 MG/3 ML VIAL.NEB INHALE ×2 (14:23→18:41)
[2022-09-28] MEDS: Warfarin Sodium 5 MG TABLET PO (17:31)
[2022-09-28] MEDS: guaiFENesin 100 MG/5 ML LIQUID PO (18:12)
[2022-09-28] MEDS: Furosemide 40 MG TABLET PO (20:58)
[2022-09-28] MEDS: Sennosides 8.6 MG TABLET 17.2 MG PO (20:58)
[2022-09-28] MEDS: cefTRIAXone sodium 1 GM in 0.9 % Sodium Chloride 50 ML IV (21:06)
[2022-09-29] VITALS (10 sets, daily range): BP systolic 106–134; BP diastolic 60–77; PULSE 93–103; RESP 17–22; TEMP 36–37.1; O2SAT 88–97
[2022-09-29] MEDS: Azithromycin 500 MG in 0.9 % Sodium Chloride 250 ML 125 MG IV ×2 (01:15→23:52)
[2022-09-29] MEDS: 0.9 % Sodium Chloride Flush 3 ML SYRINGE IVFLUSH ×4 (01:22→23:52)
--- NOTE | 2022-09-29 06:50 | PC.NURSE ---
ASSUMED CARE OF PT AT 1900. AT THAT TIME PT WAS SHORT OF BREATH WITH O2 SATS LOW 82-83%. RESP THERAPY GAVE UPDRAFT NEB WITH LITTLE EFFECT. O2 ON AT 2L VIA NC AND OXYMASK APPLIED AT 10L. DR WEST NOTIFIED AND LASIX 40 MG PO GIVEN AND CPAP ORDERED. PT IMPROVED IMMEDIATELY WITH CPAP. U/O APPROX 1000ML AFTER LASIX. PT STAYED IN RECLINER ALL NIGHT. WOULD STAND TO VOID AND IS STEADY. MONITOR STABLE NSR-ST, 90'S-LOW 100'S. VITAL SIGNS STABLE.
[2022-09-29] MEDS: Fluticasone/Vilanterol 200/25 BLST.W.DEV 1 PUFF INHALE (07:26)
[2022-09-29] MEDS: levalbuterol HCL 1.25 MG/3 ML VIAL.NEB INHALE ×4 (07:26→18:52)
[2022-09-29] MEDS: Multivitamin TABLET 1 TAB PO (08:11)
[2022-09-29] MEDS: dilTIAZem HCL CD 120 MG CAP.ER.DEG PO (08:11)
[2022-09-29] MEDS: Flecainide Acetate 50 MG TABLET PO ×2 (08:11→20:48)
[2022-09-29] MEDS: Furosemide 40 MG TABLET PO ×2 (08:11→17:03)
[2022-09-29] MEDS: Atorvastatin Calcium 20 MG TABLET PO (08:11)
[2022-09-29] MEDS: Docusate Sodium 100 MG CAPSULE 200 MG PO (08:12)
[2022-09-29] MEDS: guaiFENesin 100 MG/5 ML LIQUID PO ×2 (08:12→17:03)
--- NOTE | 2022-09-29 09:18 | HO.PM.IMPN ---
Subjective Subjective Date of Service: 09/29/22 Interval History: f/u sepsis, PNA, respiratory failure episodes of signficant desat into 80, some wheezes Physical Exam Vital Signs: Vital Signs: Last Vital Signs Temp 98.1 F 09/29/22 07:23 Pulse 95 09/29/22 07:28 Resp 20 09/29/22 07:28 BP 106/64 09/29/22 07:23 Pulse Ox 92 09/29/22 07:23 O2 Del Method Nasal Cannula 09/29/22 07:23 O2 Flow Rate 2 09/29/22 07:23 BMI result Body Mass Index 38.2 Const: Other: Appearance: Alert. Oriented X3. No acute distress. s CVS: Normal heart rate and rhythm. Pulses normal. Normal S1 and S2 Respiratory: No respiratory distress. Speaking in full sentences, cough intermittently and wheezing Abdomen: Soft and nontender. No rigidity. No distention. Skin: Skin warm and dry. Normal skin color. Normal skin turgor. Extremities: Chronic lymphedema and venous stasis more obvious on the right leg, no pitting edema Neuro: Oriented X 3. No motor deficit. No sensory deficit. Moving all extremities. No slurred speech. CN 2 through 12 grossly intact Psych: calm, cooperative, normal affect Objective Data Active Medications Acetaminophen (Acetaminophen 325 Mg Tablet) 650 mg PO Q6H PRN PRN Reason: Pain, Mild (Pain Scale 1-3) Atorvastatin Calcium (Atorvastatin Calcium 20 Mg Tablet) 20 mg PO DAILY [facility] Last Admin: 09/29/22 08:11 Dose: 20 mg Documented By: FRIDA Diltiazem HCl (Diltiazem Hcl Cd 120 Mg Cap.Er.Deg) 120 mg PO DAILY [facility]; Protocol Last Admin: 09/29/22 08:11 Dose: 120 mg Documented By: FRIDA Docusate Sodium (Docusate Sodium 100 Mg Capsule) 200 mg PO DAILY [facility] Last Admin: 09/29/22 08:12 Dose: 200 mg Documented By: FRIDA Flecainide Acetate (Flecainide Acetate 50 Mg Tablet) 50 mg PO BID [facility] Last Admin: 09/29/22 08:11 Dose: 50 mg Documented By: FRIDA Fluticasone/Vilanterol (Fluticasone/Vilanterol 200/25 Blst.W.Dev) 1 puff INHALE DAILY [facility] Last Admin: 09/29/22 07:26 Dose: 1 puff Documented By: VIKASH Furosemide (Furosemide 40 Mg Tablet) 40 mg PO BID@0900,1800 [facility]; Protocol Last Admin: 09/29/22 08:11 Dose: 40 mg Documented By: FRIDA Guaifenesin (Guaifenesin 100 Mg/5 Ml Liquid) 5 ml PO Q6H PRN PRN Reason: Cough Last Admin: 09/29/22 08:12 Dose: 5 ml Documented By: FRIDA Ceftriaxone Sodium 1 gm/ (Sodium Chloride) 50 mls @ 100 mls/hr IV Q24H [facility] Last Infusion: 09/28/22 22:45 Dose: 0 mls/hr Documented By: EDWARD Azithromycin 500 mg/ Sodium (Chloride) 250 mls @ 125 mls/hr IV Q24H [facility] Last Infusion: 09/29/22 05:14 Dose: 0 mls/hr Documented By: EDWARD Levalbuterol HCl (Levalbuterol Hcl 1.25 Mg/3 Ml Vial.Neb) 1.25 mg INHALE RQ4H WHILE AWAKE [facility] Last Admin: 09/29/22 07:26 Dose: 1.25 mg Documented By: VIKASH Melatonin (Melatonin 3 Mg Tablet) 6 mg PO BEDTIME PRN PRN Reason: Insomnia Multivitamins/Vitamin C (Multivitamin Tablet) 1 tab PO DAILY [facility] Last Admin: 09/29/22 08:11 Dose: 1 tab Documented By: FRIDA Ondansetron HCl (Ondansetron Hcl 4 Mg/2 Ml Vial) 4 mg IVPUSH Q8H PRN PRN Reason: Nausea and Vomiting Pharmacy Consult (Consult Rx Perform Med Rec) 1 each MISCELLANE ONCE PRN PRN Reason: Consult order Senna (Sennosides 8.6 Mg Tablet) 17.2 mg PO BEDTIME [facility] Last Admin: 09/28/22 20:58 Dose: 17.2 mg Documented By: EDWARD Sodium Chloride (0.9 % Sodium Chloride Flush 3 Ml Syringe) 3 ml IVFLUSH QSHIFT [facility] Last Admin: 09/29/22 08:13 Dose: 3 ml Documented By: HO.N-RIVLA Warfarin Sodium (Warfarin Sodium 5 Mg Tablet) 5 mg PO SUMOWEFR@1800 [facility] Last Admin: 09/28/22 17:31 Dose: 5 mg Documented By: MARIA D Warfarin Sodium (Warfarin Sodium 7.5 Mg Tablet) 7.5 mg PO TUTHSA@1800 [facility] Labs 09/28/22 06:32 09/28/22 06:32 Microbiology Microbiology Results: Microbiology 09/27/22 21:14 Blood Culture - Preliminary Blood - Venous No growth after 24 hours. 09/27/22 21:01 Blood Culture - Preliminary Blood - Venous No growth after 24 hours. 09/28/22 06:00 Gram Stain - Final Sputum - Expectorated Assessment and Plan (1) Sepsis: Status: Acute Plan This is a 76-year-old male with pertinent history of COPD not on home oxygen, congestive heart failure with preserved ejection fraction, atrial fibrillation on anticoagulation, mixed hyperlipidemia who presents to the emergency department for evaluation of dyspnea and cough. #Sepsis due to PNA, clinically improving. continue Ceftriaxone and Azithro started 09/27, continue IV x 1 more day #Acute hypoxic resp failure due to PNA and some component of COPD, O2 to maintain sat 88 to 93, Bronchidlators PRN, Prednisone #Congestive heart failure with preserved ejection fraction. No acute exacerbation, continue Lasix #Permanent Atrial fibrillation on anticoagulation. rate controlled, couamdin for stroke prevention, Monitor INR # Mixed hyperlipidemia. On statin DVT prophylaxis: On Coumadin Full Code Need for inpatient: Sepsis, PNA acute resp failure hypoxia, need IV Abx, and monitoring of O2 Time Spent With Patient Time: Total time managing care of this patient today ____ minutes. Quality Stroke Does the patient have a stroke diagnosis?: No VTE Prior VTE?: No VTE Risk Level:: Medical - moderate - high VTE Device Contraindication: Treatment Not Indicated VTE Drug Contraindication: N/A - Med Ordered
[2022-09-29] MEDS: predniSONE 20 MG TABLET 40 MG PO (09:25)
[2022-09-29 13:09] LABS: INTERNATIONAL NORM RATIO 3.1 (0.9-1.1); Prothrombin Time 37.7 SEC (11.1-13.3)
[2022-09-29] MEDS: cefTRIAXone sodium 1 GM in 0.9 % Sodium Chloride 50 ML IV (20:48)
[2022-09-29] MEDS: Sennosides 8.6 MG TABLET 17.2 MG PO (20:48)
[2022-09-30] VITALS (11 sets, daily range): BP systolic 113–152; BP diastolic 57–68; PULSE 74–103; RESP 17–24; TEMP 36–36.6; O2SAT 88–96
[2022-09-30 06:29] LABS: Prothrombin Time 36.4 SEC (11.1-13.3)
[2022-09-30] MEDS: levalbuterol HCL 1.25 MG/3 ML VIAL.NEB INHALE ×4 (07:27→19:31)
[2022-09-30] MEDS: Fluticasone/Vilanterol 200/25 BLST.W.DEV 1 PUFF INHALE (07:28)
[2022-09-30] MEDS: predniSONE 20 MG TABLET 40 MG PO (07:30)
[2022-09-30] MEDS: Flecainide Acetate 50 MG TABLET PO ×2 (07:30→21:40)
[2022-09-30] MEDS: Docusate Sodium 100 MG CAPSULE 200 MG PO (07:30)
[2022-09-30] MEDS: Acetaminophen 325 MG TABLET 650 MG PO (07:30)
[2022-09-30] MEDS: dilTIAZem HCL CD 120 MG CAP.ER.DEG PO (07:30)
[2022-09-30] MEDS: Multivitamin TABLET 1 TAB PO (07:31)
[2022-09-30] MEDS: Furosemide 40 MG TABLET PO ×2 (07:31→17:01)
[2022-09-30] MEDS: guaiFENesin 100 MG/5 ML LIQUID PO ×2 (07:31→17:01)
[2022-09-30] MEDS: Atorvastatin Calcium 20 MG TABLET PO (07:31)
[2022-09-30] MEDS: 0.9 % Sodium Chloride Flush 3 ML SYRINGE IVFLUSH ×3 (07:32→21:40)
--- NOTE | 2022-09-30 08:42 | HO.PM.IMPN ---
Subjective Subjective Date of Service: 09/30/22 Interval History: f/u sepsis, PNA, respiratory failure still sob, persistent cough, some wheeze Physical Exam Vital Signs: Vital Signs: Last Vital Signs Temp 96.9 F 09/30/22 07:46 Pulse 96 09/30/22 07:46 Resp 20 09/30/22 07:46 BP 117/61 09/30/22 07:46 Pulse Ox 96 09/30/22 07:46 O2 Del Method CPAP 09/30/22 07:46 O2 Flow Rate 2 09/30/22 07:29 BMI result Body Mass Index 38.2 Const: Other: Appearance: Alert. Oriented X3. No acute distress. s CVS: Normal heart rate and rhythm. Pulses normal. Normal S1 and S2 Respiratory: No respiratory distress. Speaking in full sentences, cough intermittently and wheezing Abdomen: Soft and nontender. No rigidity. No distention. Skin: Skin warm and dry. Normal skin color. Normal skin turgor. Extremities: Chronic lymphedema and venous stasis more obvious on the right leg, no pitting edema Neuro: Oriented X 3. No motor deficit. No sensory deficit. Moving all extremities. No slurred speech. CN 2 through 12 grossly intact Psych: calm, cooperative, normal affect Objective Data Active Medications Acetaminophen (Acetaminophen 325 Mg Tablet) 650 mg PO Q6H PRN PRN Reason: Pain, Mild (Pain Scale 1-3) Last Admin: 09/30/22 07:30 Dose: 650 mg Documented By: FRIDA Atorvastatin Calcium (Atorvastatin Calcium 20 Mg Tablet) 20 mg PO DAILY [facility] Last Admin: 09/30/22 07:31 Dose: 20 mg Documented By: FRIDA Diltiazem HCl (Diltiazem Hcl Cd 120 Mg Cap.Er.Deg) 120 mg PO DAILY [facility]; Protocol Last Admin: 09/30/22 07:30 Dose: 120 mg Documented By: FRIAD Docusate Sodium (Docusate Sodium 100 Mg Capsule) 200 mg PO DAILY [facility] Last Admin: 09/30/22 07:30 Dose: 200 mg Documented By: FRIDA Doxycycline Monohydrate (Doxycycline Monohydrate 100 Mg Capsule) 100 mg PO Q12H [facility] Flecainide Acetate (Flecainide Acetate 50 Mg Tablet) 50 mg PO BID [facility] Last Admin: 09/30/22 07:30 Dose: 50 mg Documented By: FRIDA Fluticasone/Vilanterol (Fluticasone/Vilanterol 200/25 Blst.W.Dev) 1 puff INHALE DAILY [facility] Last Admin: 09/30/22 07:28 Dose: 1 puff Documented By: VIKASH Furosemide (Furosemide 40 Mg Tablet) 40 mg PO BID@0900,1800 [facility]; Protocol Last Admin: 09/30/22 07:31 Dose: 40 mg Documented By: FRIDA Guaifenesin (Guaifenesin 100 Mg/5 Ml Liquid) 5 ml PO Q6H PRN PRN Reason: Cough Last Admin: 09/30/22 07:31 Dose: 5 ml Documented By: FRIDA Levalbuterol HCl (Levalbuterol Hcl 1.25 Mg/3 Ml Vial.Neb) 1.25 mg INHALE RQ4H WHILE AWAKE [facility] Last Admin: 09/30/22 07:27 Dose: 1.25 mg Documented By: VIKASH Melatonin (Melatonin 3 Mg Tablet) 6 mg PO BEDTIME PRN PRN Reason: Insomnia Methylprednisolone Sodium Succinate (Methylprednisolone Sod Succ 40 Mg/Ml Vial) 40 mg IVPUSH Q12H [facility] Multivitamins/Vitamin C (Multivitamin Tablet) 1 tab PO DAILY [facility] Last Admin: 09/30/22 07:31 Dose: 1 tab Documented By: FRIDA Ondansetron HCl (Ondansetron Hcl 4 Mg/2 Ml Vial) 4 mg IVPUSH Q8H PRN PRN Reason: Nausea and Vomiting Pharmacy Consult (Consult Rx Perform Med Rec) 1 each MISCELLANE ONCE PRN PRN Reason: Consult order Senna (Sennosides 8.6 Mg Tablet) 17.2 mg PO BEDTIME [facility] Last Admin: 09/29/22 20:48 Dose: 17.2 mg Documented By: MAHI Sodium Chloride (0.9 % Sodium Chloride Flush 3 Ml Syringe) 3 ml IVFLUSH QSHIFT [facility] Last Admin: 09/30/22 07:32 Dose: 3 ml Documented By: FRIDA Warfarin Sodium (Warfarin Sodium 5 Mg Tablet) 5 mg PO SUMOWEFR@1800 [facility] Last Admin: 09/28/22 17:31 Dose: 5 mg Documented By: MARIA D Warfarin Sodium (Warfarin Sodium 7.5 Mg Tablet) 7.5 mg PO TUTCARLOA@1800 [facility] Labs 09/28/22 06:32 09/28/22 06:32 Labs: Laboratory Results - last 24 hr 09/29/22 09/30/22 12:47 06:02 PT 37.7 H 36.4 H INR 3.1 H 3.0 H Microbiology Microbiology Results: Microbiology 09/27/22 21:14 Blood Culture - Preliminary Blood - Venous No growth after 48 hours. 09/27/22 21:01 Blood Culture - Preliminary Blood - Venous No growth after 48 hours. 09/28/22 06:00 Gram Stain - Final Sputum - Expectorated Sputum Culture - Preliminary Culture in progress. Assessment and Plan (1) Sepsis: Status: Acute Plan This is a 76-year-old male with pertinent history of COPD not on home oxygen, congestive heart failure with preserved ejection fraction, atrial fibrillation on anticoagulation, mixed hyperlipidemia who presents to the emergency department for evaluation of dyspnea and cough. #Sepsis due to PNA, clinically improved, continue Ceftriaxone and Azithro started 09/27, stop 09/30, add PO Doxycline 100 bid #Acute hypoxic resp failure due to PNA and some component of COPD, O2 to maintain sat 88 to 93, Bronchidlators PRN, IV solumedrol today #Congestive heart failure with preserved ejection fraction. No acute exacerbation, continue PO Lasix #Permanent Atrial fibrillation on anticoagulation. rate controlled, couamdin for stroke prevention, Monitor INR # Mixed hyperlipidemia. On statin DVT prophylaxis: On Coumadin Full Code Need for inpatient: Sepsis, PNA acute resp failure hypoxia, need IV Abx, and monitoring of O2 Time Spent With Patient Time: Total time managing care of this patient today ____ minutes. Quality Stroke Does the patient have a stroke diagnosis?: No VTE Prior VTE?: No VTE Risk Level:: Medical - moderate - high VTE Device Contraindication: Treatment Not Indicated VTE Drug Contraindication: N/A - Med Ordered
[2022-09-30] MEDS: methylPREDNISolone Sod Succ 40 MG/ML VIAL IVPUSH ×2 (11:47→21:39)
[2022-09-30] MEDS: Doxycycline Monohydrate 100 MG CAPSULE PO ×2 (11:48→21:40)
[2022-09-30 16:56] LABS: B Type Natriuretic Peptide 65 pg/mL (<100)
--- NOTE | 2022-09-30 20:00 | PC.NURSE ---
Patient's family is concerned about patient's planned d/c tomorrow morning. His states, I will not be taking him home like this and is not willing to assume or arrange care for patient at home at this time. MD Galo. aware at this time via [employer].
[2022-09-30] MEDS: Sennosides 8.6 MG TABLET 17.2 MG PO (21:40)
[2022-10-01] VITALS (9 sets, daily range): BP systolic 122–141; BP diastolic 60–73; PULSE 80–96; RESP 18–22; TEMP 35.9–36.7; O2SAT 90–97
[2022-10-01 07:25] LABS: Prothrombin Time 24.9 SEC (11.1-13.3)
[2022-10-01] MEDS: Doxycycline Monohydrate 100 MG CAPSULE PO ×2 (07:45→19:54)
[2022-10-01] MEDS: Furosemide 40 MG TABLET PO ×2 (07:45→17:37)
[2022-10-01] MEDS: Atorvastatin Calcium 20 MG TABLET PO (07:45)
[2022-10-01] MEDS: Multivitamin TABLET 1 TAB PO (07:45)
[2022-10-01] MEDS: dilTIAZem HCL CD 120 MG CAP.ER.DEG PO (07:45)
[2022-10-01] MEDS: methylPREDNISolone Sod Succ 40 MG/ML VIAL IVPUSH ×2 (07:46→19:54)
[2022-10-01] MEDS: Docusate Sodium 100 MG CAPSULE 200 MG PO (07:46)
[2022-10-01] MEDS: 0.9 % Sodium Chloride Flush 3 ML SYRINGE IVFLUSH ×3 (07:46→19:58)
[2022-10-01] MEDS: Flecainide Acetate 50 MG TABLET PO ×2 (07:51→19:54)
[2022-10-01] MEDS: levalbuterol HCL 1.25 MG/3 ML VIAL.NEB INHALE ×4 (08:03→19:43)
[2022-10-01] MEDS: Fluticasone/Vilanterol 200/25 BLST.W.DEV 1 PUFF INHALE (08:14)
[2022-10-01 08:51] LABS: Adenovirus PCR Not Detected (Not Detect.); Bordetella parapertussis PCR Not Detected (Not Detect.); Bordetella pertussis PCR Not Detected (Not Detect.); Chlamydia pneumoniae PCR Not Detected (Not Detect.); Coronavirus 229E PCR Not Detected (Not Detect.); Coronavirus HKU1 PCR Not Detected (Not Detect.); Coronavirus NL63 PCR Not Detected (Not Detect.); Coronavirus OC43 PCR Not Detected (Not Detect.); Human metapneumovirus PCR Not Detected (Not Detect.); Influenza A PCR Not Detected (Not Detect.); Influenza B PCR Not Detected (Not Detect.); Mycoplasma pneumoniae PCR Not Detected (Not Detect.); Parainfluenza 1 PCR Not Detected (Not Detect.); Parainfluenza 2 PCR Not Detected (Not Detect.); Parainfluenza 3 PCR Not Detected (Not Detect.); Parainfluenza 4 PCR Not Detected (Not Detect.); RSV PCR Not Detected (Not Detect.); Rhino/Enterovirus PCR Not Detected (Not Detect.); SARS-CoV-2 PCR Not Detected (Not Detect.)
--- NOTE | 2022-10-01 09:55 | P.PNIM_ITS ---
Subjective Subjective Date of Service: 10/01/22 Interval History: f/u sepsis, PNA, respiratory failure cough is better, no wheeze, repeat xray no pna, or heart failure Physical Exam Vital Signs: Vital Signs: Last Vital Signs Temp 97.9 F 10/01/22 07:32 Pulse 92 10/01/22 08:51 Resp 20 10/01/22 08:51 BP 122/60 10/01/22 07:32 Pulse Ox 95 10/01/22 07:32 O2 Del Method Oxymask 10/01/22 07:32 O2 Flow Rate 7 10/01/22 07:32 BMI result Body Mass Index 38.2 Const: Other: Appearance: Alert. Oriented X3. No acute distress. s CVS: Normal heart rate and rhythm. Pulses normal. Normal S1 and S2 Respiratory: No respiratory distress. Speaking in full sentences, cough intermittently and wheezing Abdomen: Soft and nontender. No rigidity. No distention. Skin: Skin warm and dry. Normal skin color. Normal skin turgor. Extremities: Chronic lymphedema and venous stasis more obvious on the right leg, no pitting edema Neuro: Oriented X 3. No motor deficit. No sensory deficit. Moving all extremities. No slurred speech. CN 2 through 12 grossly intact Psych: calm, cooperative, normal affect Objective Data Active Medications Acetaminophen (Acetaminophen 325 Mg Tablet) 650 mg PO Q6H PRN PRN Reason: Pain, Mild (Pain Scale 1-3) Last Admin: 09/30/22 07:30 Dose: 650 mg Documented By: FRIDA Atorvastatin Calcium (Atorvastatin Calcium 20 Mg Tablet) 20 mg PO DAILY [facility] Last Admin: 10/01/22 07:45 Dose: 20 mg Documented By: KAM Diltiazem HCl (Diltiazem Hcl Cd 120 Mg Cap.Er.Deg) 120 mg PO DAILY [facility]; Protocol Last Admin: 10/01/22 07:45 Dose: 120 mg Documented By: KAM Docusate Sodium (Docusate Sodium 100 Mg Capsule) 200 mg PO DAILY [facility] Last Admin: 10/01/22 07:46 Dose: 200 mg Documented By: KAM Doxycycline Monohydrate (Doxycycline Monohydrate 100 Mg Capsule) 100 mg PO Q12H [facility] Last Admin: 10/01/22 07:45 Dose: 100 mg Documented By: KAM Flecainide Acetate (Flecainide Acetate 50 Mg Tablet) 50 mg PO BID [facility] Last Admin: 10/01/22 07:51 Dose: 50 mg Documented By: KAM Fluticasone/Vilanterol (Fluticasone/Vilanterol 200/25 Blst.W.Dev) 1 puff INHALE DAILY [facility] Last Admin: 10/01/22 08:14 Dose: 1 puff Documented By: JOSE Furosemide (Furosemide 40 Mg Tablet) 40 mg PO BID@0900,1800 [facility]; Protocol Last Admin: 10/01/22 07:45 Dose: 40 mg Documented By: KAM Guaifenesin (Guaifenesin 100 Mg/5 Ml Liquid) 5 ml PO Q6H PRN PRN Reason: Cough Last Admin: 09/30/22 17:01 Dose: 5 ml Documented By: FRIDA Levalbuterol HCl (Levalbuterol Hcl 1.25 Mg/3 Ml Vial.Neb) 1.25 mg INHALE RQ4H WHILE AWAKE [facility] Last Admin: 10/01/22 08:03 Dose: 1.25 mg Documented By: JOSE Melatonin (Melatonin 3 Mg Tablet) 6 mg PO BEDTIME PRN PRN Reason: Insomnia Methylprednisolone Sodium Succinate (Methylprednisolone Sod Succ 40 Mg/Ml Vial) 40 mg IVPUSH Q12H [facility] Last Admin: 10/01/22 07:46 Dose: 40 mg Documented By: KAM Multivitamins/Vitamin C (Multivitamin Tablet) 1 tab PO DAILY [facility] Last Admin: 10/01/22 07:45 Dose: 1 tab Documented By: KAM Ondansetron HCl (Ondansetron Hcl 4 Mg/2 Ml Vial) 4 mg IVPUSH Q8H PRN PRN Reason: Nausea and Vomiting Pharmacy Consult (Consult Rx Perform Med Rec) 1 each MISCELLANE ONCE PRN PRN Reason: Consult order Senna (Sennosides 8.6 Mg Tablet) 17.2 mg PO BEDTIME [facility] Last Admin: 09/30/22 21:40 Dose: 17.2 mg Documented By: MAIKOL Sodium Chloride (0.9 % Sodium Chloride Flush 3 Ml Syringe) 3 ml IVFLUSH QSHIFT [facility] Last Admin: 10/01/22 07:46 Dose: 3 ml Documented By: KAM Warfarin Sodium (Warfarin Sodium 5 Mg Tablet) 5 mg PO SUMOWEFR@1800 [facility] Last Admin: 09/28/22 17:31 Dose: 5 mg Documented By: MARIA D Warfarin Sodium (Warfarin Sodium 7.5 Mg Tablet) 7.5 mg PO TUTHSA@1800 [facility] Labs 09/28/22 06:32 09/28/22 06:32 Labs: Laboratory Results - last 24 hr 09/30/22 09/30/22 10/01/22 16:06 16:25 06:49 PT 24.9 H D INR 2.0 H B-Natriuretic Peptide 65 Respiratory Panel [place] See Note Adenovirus (Rapid PCR) Not Detected B.pert (TEM-PCR) Not Detected B.parapertussis DNA PCR Not Detected C. pneumoniae DNA (PCR) Not Detected Coronavirus OC43 (PCR) Not Detected Coronavirus HKU1 (PCR) Not Detected Coronavirus 229E (PCR) Not Detected Coronavirus NL63 (PCR) Not Detected Human Metapneumovir PCR Not Detected Influenza A (RT-PCR) Not Detected Influenza B (RT-PCR) Not Detected M. pneumoniae (PCR) Not Detected Parainfluenza 1 (PCR) Not Detected Parainfluenza 2 (PCR) Not Detected Parainfluenza 3 (PCR) Not Detected Parainfluenza 4 (PCR) Not Detected RSV (PCR) Not Detected Entero/Rhino (PCR) Not Detected SARS-CoV-2 RNA (RT-PCR) Not Detected Microbiology Microbiology Results: Microbiology 09/28/22 06:00 Gram Stain - Final Sputum - Expectorated Sputum Culture - Final Assessment and Plan (1) Sepsis: Status: Acute (2) Pneumonia: Status: Acute Plan This is a 76-year-old male with pertinent history of COPD not on home oxygen, congestive heart failure with preserved ejection fraction, atrial fibrillation on anticoagulation, mixed hyperlipidemia who presents to the emergency department for evaluation of dyspnea and cough. #Sepsis due to PNA, clinically improved, Ceftriaxone and Azithro started 09/27, stopped 09/30, added PO Doxycline 100 bid on 09/30 #Acute hypoxic resp failure due to PNA and some component of COPD, O2 to maintain sat 88 to 93, Bronchidlators PRN, IV solumedrol, change to Prednisone at discharge #Congestive heart failure with preserved ejection fraction. No acute exacerbation, BNP only 65, cxr no congestion, continue PO Lasix #Permanent Atrial fibrillation on anticoagulation. rate controlled, couamdin for stroke prevention, Monitor INR , resume coumadin # Mixed hyperlipidemia. On statin DVT prophylaxis: On Coumadin Full Code Need for inpatient: Sepsis, PNA acute resp failure hypoxia, need IV steroid, and monitoring of O2, ambulate and if does ok, dc tomorrow Time Spent With Patient Time: Total time managing care of this patient today ____ minutes. Quality Stroke Does the patient have a stroke diagnosis?: No VTE Prior VTE?: No VTE Risk Level:: Medical - moderate - high VTE Device Contraindication: Treatment Not Indicated VTE Drug Contraindication: N/A - Med Ordered
--- NOTE | 2022-10-01 13:29 | MHC.CM.PN ---
EMR REVIEWED AND PER MD ROUNDS, PT NOT MEDICALLY CLEAR FOR DC HOME TODAY (IV ABT, PNA), PROBABLY TOMORROW. CM WILL CONTINUE TO FOLLOW FOR ANY CHANGE IN DC PLAN/NEEDS.
[2022-10-01] MEDS: Warfarin Sodium 5 MG TABLET PO (17:37)
[2022-10-01] MEDS: Milk of Magnesia 30 ML ORAL.SUSP PO (17:57)
[2022-10-01] MEDS: Sennosides 8.6 MG TABLET 17.2 MG PO (19:54)
[2022-10-02] VITALS (7 sets, daily range): BP systolic 114–134; BP diastolic 62–68; PULSE 75–100; RESP 18; TEMP 36.1–36.2; O2SAT 92–98
[2022-10-02 07:15] LABS: Prothrombin Time 24.1 SEC (11.1-13.3)
--- NOTE | 2022-10-02 07:57 | PC.RT ---
Spoke with patient this morning regarding cpap and oxygen at home. Currently he was on 7 Liter Oxymask with a Sat of 97%. I weaned him to 4 Liters Oxymask where his Sat is 88-94%. He also wore our Cpap machine last night at Cpap 8 with 10 Liters titrated last night while maintaining a Sat of 93%. Pt states he wear Cpap of 4 at home but does not use oxygen with it. He also uses Oxygen at home only as needed. My concern is that he is requiring alot of Oxygen at night time while on Cpap during his stay here. His Pulmonary MD is Dr. Clarke. I would suggest to have him consult him prior to discharge. I will discuss with hospitalist as well this am.
[2022-10-02] MEDS: dilTIAZem HCL CD 120 MG CAP.ER.DEG PO (08:01)
[2022-10-02] MEDS: Flecainide Acetate 50 MG TABLET PO (08:01)
[2022-10-02] MEDS: Furosemide 40 MG TABLET PO (08:01)
[2022-10-02] MEDS: methylPREDNISolone Sod Succ 40 MG/ML VIAL IVPUSH (08:01)
[2022-10-02] MEDS: Doxycycline Monohydrate 100 MG CAPSULE PO (08:02)
[2022-10-02] MEDS: Multivitamin TABLET 1 TAB PO (08:02)
[2022-10-02] MEDS: Atorvastatin Calcium 20 MG TABLET PO (08:02)
[2022-10-02] MEDS: Docusate Sodium 100 MG CAPSULE 200 MG PO (08:02)
[2022-10-02] MEDS: 0.9 % Sodium Chloride Flush 3 ML SYRINGE IVFLUSH (08:02)
[2022-10-02] MEDS: Fluticasone/Vilanterol 200/25 BLST.W.DEV 1 PUFF INHALE (08:12)
[2022-10-02] MEDS: levalbuterol HCL 1.25 MG/3 ML VIAL.NEB INHALE ×2 (08:12→11:37)
--- NOTE | 2022-10-02 09:19 | P.CONPL_ITS ---
History of Present Illness History of Present Illness Consult date: 10/02/22 Chief complaint: Dyspnea Narrative: This is an inpatient pulmonary consultation. This is a 76-year-old male with pertinent history of DEREK on CPAP. COPD not on home oxygen, congestive heart failure with preserved ejection fraction, atrial fibrillation on anticoagulation, mixed hyperlipidemia who presents to the emergency department for evaluation of dyspnea and cough.? Patient states that about 10 days prior to presentation he was having dyspnea with wheezing.? He was prescribed prednisone and doxycycline by his PCP for suspected COPD exacerbation.? Patient states his breathing improved and wheezing resolved but 2 days after stopping doxycycline, he began having cough with yellowish sputum production.? It was associated with dyspnea, worse with exertion.? Also has fevers and chills.? He denies chest d iscomfort, palpitations, abdominal pain, changes in urinary or bowel habits. Overnight the patient has required additional oxygen up to 7-8 L of oxygen with CPAP to maintain a pulse ox of 92%. Patient is currently on room air while eating breakfast comfortably. She states that he feels back to his baseline. The patient will need a walking oximetry and also an overnight oximetry to figure out as far as his oxygen needs prior to being discharged from the hospital. The patient continues in CPAP. Have spoken to his outpatient Pulmonary team about having him undergo an in-lab CPAP BiPAP titration study. Review of Systems Constitutional: Constitutional: Denies chills, Reports fatigue, Denies fever(s) and Denies malaise ENT: Denies epistaxis Cardiovascular: Cardiovascular: Reports dyspnea on exertion Respiratory: Respiratory: Reports cough and Reports dyspnea on exertion Gastrointestinal: Gastrointestinal: Reports no additional gastrointestinal complaints Genitourinary: Genitourinary: Reports no additional male genitourinary complaints Endocrine: Endocrine: Reports fatigue [facility] Past Medical History Medical History (HFpEF) heart failure with preserved ejection fraction CHF exacerbation COPD (chronic obstructive pulmonary disease) Cough Lymphedema of both lower extremities Obesity (BMI 35.0-39.9 without comorbidity) DEREK on CPAP Paroxysmal atrial fibrillation Varicose veins of right lower extremity with inflammation Family History Family History Father No problems noted. Mother No problems noted. Sister No problems noted. Sister No problems noted. Son No problems noted. Daughter No problems noted. Surgical History Surgical History History of appendectomy Social History Social History Household Members: Spouse Housing: House Do you presently have visiting nurse or other home services: No Alcohol intake: current Alcohol intake frequency: a few times a week Alcohol type: beer Patient Tobacco Use Status: Former Tobacco user service: Yes Current occupational status: retired [employer] Allergies Allergy/AdvReac Type Severity Reaction Status Date / Time albuterol AdvReac Intermediate Palpitation Verified 09/18/22 13:30 s amoxicillin [From Augmentin] AdvReac Intermediate Nausea and Verified 09/27/22 20:44 Vomiting, dizziness clavulanic acid AdvReac Intermediate Nausea and Verified 09/27/22 20:44 [From Augmentin] Vomiting, dizziness Active Medications: Current Medications Acetaminophen (Acetaminophen 325 Mg Tablet) 650 mg PO Q6H PRN PRN Reason: Pain, Mild (Pain Scale 1-3) Last Admin: 09/30/22 07:30 Dose: 650 mg Atorvastatin Calcium (Atorvastatin Calcium 20 Mg Tablet) 20 mg PO DAILY [facility] Last Admin: 10/02/22 08:02 Dose: 20 mg Diltiazem HCl (Diltiazem Hcl Cd 120 Mg Cap.Er.Deg) 120 mg PO DAILY [facility]; Protocol Last Admin: 10/02/22 08:01 Dose: 120 mg Docusate Sodium (Docusate Sodium 100 Mg Capsule) 200 mg PO DAILY [facility] Last Admin: 10/02/22 08:02 Dose: 200 mg Doxycycline Monohydrate (Doxycycline Monohydrate 100 Mg Capsule) 100 mg PO Q12H [facility] Last Admin: 10/02/22 08:02 Dose: 100 mg Flecainide Acetate (Flecainide Acetate 50 Mg Tablet) 50 mg PO BID [facility] Last Admin: 10/02/22 08:01 Dose: 50 mg Fluticasone/Vilanterol (Fluticasone/Vilanterol 200/25 Blst.W.Dev) 1 puff INHALE DAILY [facility] Last Admin: 10/02/22 08:12 Dose: 1 puff Furosemide (Furosemide 40 Mg Tablet) 40 mg PO BID@0900,1800 [facility]; Protocol Last Admin: 10/02/22 08:01 Dose: 40 mg Guaifenesin (Guaifenesin 100 Mg/5 Ml Liquid) 5 ml PO Q6H PRN PRN Reason: Cough Last Admin: 09/30/22 17:01 Dose: 5 ml Guaifenesin (Guaifenesin La 600 Mg Tab.Er.12h) 1,200 mg PO BID [facility] Levalbuterol HCl (Levalbuterol Hcl 1.25 Mg/3 Ml Vial.Neb) 1.25 mg INHALE RQ4H WHILE AWAKE [facility] Last Admin: 10/02/22 08:12 Dose: 1.25 mg Melatonin (Melatonin 3 Mg Tablet) 6 mg PO BEDTIME PRN PRN Reason: Insomnia Methylprednisolone Sodium Succinate (Methylprednisolone Sod Succ 40 Mg/Ml Vial) 40 mg IVPUSH Q12H [facility] Last Admin: 10/02/22 08:01 Dose: 40 mg Multivitamins/Vitamin C (Multivitamin Tablet) 1 tab PO DAILY [facility] Last Admin: 10/02/22 08:02 Dose: 1 tab Ondansetron HCl (Ondansetron Hcl 4 Mg/2 Ml Vial) 4 mg IVPUSH Q8H PRN PRN Reason: Nausea and Vomiting Senna (Sennosides 8.6 Mg Tablet) 17.2 mg PO BEDTIME [facility] Last Admin: 10/01/22 19:54 Dose: 17.2 mg Sodium Chloride (0.9 % Sodium Chloride Flush 3 Ml Syringe) 3 ml IVFLUSH QSHIFT [facility] Last Admin: 10/02/22 08:02 Dose: 3 ml Warfarin Sodium (Warfarin Sodium 5 Mg Tablet) 5 mg PO SUMOWEFR@1800 [facility] Last Admin: 10/01/22 17:37 Dose: 5 mg Warfarin Sodium (Warfarin Sodium 7.5 Mg Tablet) 7.5 mg PO TUTHSA@1800 [facility] Home Medications Medication Instructions Recorded Confirmed Last Taken Type atorvastatin 20 mg tablet 20 mg PO DAILY 12/08/19 09/27/22 09/27/22 History diltiazem HCl 120 mg 120 mg PO DAILY 12/08/19 09/27/22 09/27/22 History capsule,extended release 24 hr docusate sodium 100 mg capsule 200 mg PO DAILY 12/08/19 09/27/22 09/27/22 History sennosides 8.6 mg capsule (senna) 25.8 mg PO BEDTIME 12/08/19 09/27/22 09/27/22 History potassium chloride 10 mEq 10 meq PO DAILY 12/15/20 09/27/22 09/27/22 History tablet,extended release multivitamin 1 tab PO DAILY 06/15/21 09/27/22 09/27/22 History warfarin 5 mg tablet 5 mg PO SUMOWEFR@1800 06/15/21 09/27/22 09/26/22 History warfarin 5 mg tablet 7.5 mg PO TUTHSA@1800 06/15/21 09/27/22 09/27/22 History acetaminophen 500 mg tablet 1,000 mg PO Q6H PRN Back Pain 12/17/21 09/27/22 09/27/22 History furosemide 40 mg tablet 40 mg PO BID 09/27/22 09/27/22 09/27/22 History Physical Exam Vital Signs: Vital Signs: Last Vital Signs Temp 97.1 F 10/02/22 07:08 Pulse 86 10/02/22 08:12 Resp 18 10/02/22 08:12 BP 114/65 10/02/22 07:08 Pulse Ox 92 10/02/22 07:08 O2 Del Method Oxymask 10/02/22 07:08 O2 Flow Rate 7 10/02/22 07:08 BMI result Body Mass Index 38.2 Const: Other: Appearance: Alert. Oriented X3. No acute distress. s CVS: Normal heart rate and rhythm. Pulses normal. Normal S1 and S2 Respiratory: No respiratory distress. Speaking in full sentences, cough intermittently and wheezing Abdomen: Soft and nontender. No rigidity. No distention. Skin: Skin warm and dry. Normal skin color. Normal skin turgor. Extremities: Chronic lymphedema and venous stasis more obvious on the right leg, no pitting edema Neuro: Oriented X 3. No motor deficit. No sensory deficit. Moving all extremities. No slurred speech. CN 2 through 12 grossly intact Psych: calm, cooperative, normal affect Results Laboratory Findings 09/28/22 06:32 09/28/22 06:32 ABG, PT/INR, D-dimer: PT/INR, D-dimer PT 24.1 SEC (11.1-13.3) H 10/02/22 06:33 INR 2.0 (0.9-1.1) H 10/02/22 06:33 Abnormal lab findings: Abnormal Labs 09/27/22 09/27/22 09/27/22 21:01 21:01 21:01 WBC 13.3 H RBC Hgb Hct Plt Count Immature Gran % (Auto) 0.5 H Lymph % (Auto) 6.2 L Jay % (Auto) 22.1 H Lymph # (Auto) 0.8 L Jay # (Auto) 2.9 H Abs Immat Gran (auto) 0.06 H Absolute Neuts (auto) 9.2 H PT 30.7 H INR 2.5 H Carbon Dioxide 34 H Anion Gap 11 L BUN 18 H Random Glucose 125 H Total Bilirubin 1.1 H 09/28/22 09/28/22 09/28/22 06:32 06:32 06:32 WBC 11.9 H RBC 4.19 L Hgb 12.9 L Hct 39.3 L Plt Count 145 L Immature Gran % (Auto) 0.7 H Lymph % (Auto) 7.0 L Jay % (Auto) 28.1 H Lymph # (Auto) 0.8 L Jay # (Auto) 3.3 H Abs Immat Gran (auto) 0.08 H Absolute Neuts (auto) PT 33.3 H INR 2.7 H Carbon Dioxide 32 H Anion Gap 11 L BUN 18 H Random Glucose Total Bilirubin 09/29/22 09/30/22 10/01/22 12:47 06:02 06:49 WBC RBC Hgb Hct Plt Count Immature Gran % (Auto) Lymph % (Auto) Jay % (Auto) Lymph # (Auto) Jay # (Auto) Abs Immat Gran (auto) Absolute Neuts (auto) PT 37.7 H 36.4 H 24.9 H D INR 3.1 H 3.0 H 2.0 H Carbon Dioxide Anion Gap BUN Random Glucose Total Bilirubin 10/02/22 06:33 WBC RBC Hgb Hct Plt Count Immature Gran % (Auto) Lymph % (Auto) Jay % (Auto) Lymph # (Auto) Jay # (Auto) Abs Immat Gran (auto) Absolute Neuts (auto) PT 24.1 H INR 2.0 H Carbon Dioxide Anion Gap BUN Random Glucose Total Bilirubin Microbiology: Microbiology 09/28/22 06:00 Sputum - Expectorated Gram Stain - Final 09/28/22 06:00 Sputum - Expectorated Sputum Culture - Final 09/27/22 21:14 Blood - Venous Blood Culture - Preliminary No growth after 48 hours. 09/27/22 21:01 Blood - Venous Blood Culture - Preliminary No growth after 48 hours. Assessment and Plan (1) Acute exacerbation of chronic obstructive pulmonary disease (COPD): Status: Acute (2) (HFpEF) heart failure with preserved ejection fraction: Status: Acute (3) DEREK on CPAP: Status: Acute (4) Pneumonia: Status: Acute Plan check VBG PO prednisone with taper complete Doxycycline x 10 days, clinically better respiratory therapy walking oximetry to assess oxygen need with activity Will need oxygen with CPAP 4L to maintain pox>88%. Will benefit from titration study Continue diuresis as tolerated On Coumadin Time Spent With Patient Time: Total time managing care of this patient today ____ minutes. Procedures Date of Service Date of Service: 10/02/22
[2022-10-02 10:14] LABS: VBG Base Excess 6.5 mmol/L; VBG HCO3 31 mmol/L (22-26); VBG pCO2 46 mmHg; VBG pH 7.43 (7.32-7.43); VBG pO2 93 mmHg
[2022-10-02 10:14] LABS: Venous Blood Gas Refer to POC result
[2022-10-02] MEDS: guaiFENesin LA 600 MG TAB.ER.12H 1200 MG PO (10:15)
[2022-10-02] MEDS: Furosemide 40 MG/4 ML VIAL IVPUSH (10:42)
--- NOTE | 2022-10-02 11:48 | P.DS_ITS ---
DS: Providers Provider Date of Service: 10/02/22 Date of admission: 09/27/22 22:50 Primary care physician: Evelyn Valdez MD Consults: 10/02/22 08:37 Consult to Pulmonology Routine Consulting Provider: [facility] Reason for consultation: increase O2 requirements, for eval and rec. DS: Diagnosis Discharge Diagnosis (1) Acute exacerbation of chronic obstructive pulmonary disease (COPD): Status: Acute (2) (HFpEF) heart failure with preserved ejection fraction: Status: Acute (3) DEREK on CPAP: Status: Acute (4) Pneumonia: Status: Acute (5) Sepsis: Status: Acute (6) Pneumonia: Status: Acute (7) Acute on chronic respiratory failure with hypoxemia: Status: Acute DS: Summary Hospital Course Hospital Course: Admission note HPI This is a 76-year-old male with pertinent history of COPD not on home oxygen, congestive heart failure with preserved ejection fraction, atrial fibrillation on anticoagulation, mixed hyperlipidemia who presents to the emergency department for evaluation of dyspnea and cough.? Patient states that about 10 days prior to presentation he was having dyspnea with wheezing.? He was prescribed prednisone and doxycycline by his PCP for suspected COPD exacerbation.? Patient states his breathing improved and wheezing resolved but 2 days after stopping doxycycline, he began having cough with yellowish sputum production.? It was associated with dyspnea, worse with exertion.? Also has fevers and chills.? He denies chest discomfort, palpitations, abdominal pain, changes in urinary or bowel habits. In the emergency department, patient was found to be hypoxemic and septic. Hospital course The patient was admitted to the hospital for evaluation of difficulties breathing found to have sepsis secondary to pneumonia based on lung images associated with acute on chronic respiratory failure with hypoxemia in COPD exacerbation which he was treated for with IV antibiotics, steroids and nebuli zers with O2 supplement over the course of hospital stay with fair improvement in his symptoms but continued to require higher than baseline O2 supplement. evaluated by Licensed Mental Health Counselor as VBG looked ok who recommended 10 days of Doxycycline and tapering dose of steroids on discharge with a plan to follow up as outpatient for titration study. The patient was able to ambulate with PT who recommended no need for PT at discharge. He was advised to wean down O2 supplement as tolerated at home. Will be followed with [facility] to help with ongoing medical issues. Continue Doxycycline and Mucinex as prescribed Tapering dose prednisone Wean down Oxygen supplement at home as tolerated , Continue chest physiotherapy To follow with Pulmonology as outpatient for titration study Time Spent with Patient Time attestation: Total time managing care of this patient today ____ minutes. Discharge coordination time: Greater than 30 minutes Quality: Safe Use of Opioids Does Pt have an Active Cancer Diagnosis on the Problem List?: No Quality: Stroke Does the patient have a stroke diagnosis?: No Physical Exam Vital Signs: Vital Signs: Last Vital Signs Temp 97 F 10/02/22 11:26 Pulse 95 10/02/22 11:41 Resp 18 10/02/22 11:41 BP 134/68 10/02/22 11:26 Pulse Ox 92 10/02/22 11:26 O2 Del Method Oxymask 10/02/22 11:26 O2 Flow Rate 4 10/02/22 11:26 BMI result Body Mass Index 38.2 Const: Other: Constitutional : Awake, interactive, not in distress Neck : Normal inspection, Supple Cardiovascular : RRR, no JVP, +1 Right, trace left lower extremity edema Respiratory : fair bilateral air entry, no crackles, fine scattered wheezes bilaterally Gastrointestinal: soft, lax, Normal bowel sounds, Non tender Skin : Warm, Dry Neurological : Alert & oriented x3, No focal deficit DS: Data Data Completed and Pending Completed studies during hospitalization [Text1]: Procedures Assistance with Respiratory Ventilation, Less than 24 Consecutive Hours, Continuous Positive Airway Pressure (12/17/21) Labs on day of discharge: Laboratory Results - last 24 hr 10/02/22 10/02/22 06:33 10:07 PT 24.1 H INR 2.0 H VBG pH 7.43 VBG pCO2 46 VBG pO2 93 VBG HCO3 31 H VBG O2 Saturation 98.0 VBG Base Excess 6.5 Preliminary micro results at discharge 09/27/22 21:14 Blood Culture - Preliminary Blood - Venous No growth after 48 hours. 09/27/22 21:01 Blood Culture - Preliminary Blood - Venous No growth after 48 hours. Imaging Chest x-ray: Radiologist's impression: ITS Impressions Chest X-Ray 09/27/22 21:32 IMPRESSION: Low lung volumes limits evaluation. Consolidation at the left lung base was present previously and may represent chronic atelectasis/scarring. Recurrent infiltrate considered less likely. Right lower lung field increased markings possibly chronic and/or technical. Chest X-Ray 09/30/22 16:06 IMPRESSION: Chronic abnormal elevation of the left diaphragm. Chronic nonspecific reticular markings. Discharge Plan Discharge Anticipated Discharge Date/Time: 10/02/22 11:40 Patient Disposition: Home Health Service Discharge Diagnosis: Acute on chronic hypoxic respiratory failure Pneumonia COPD exacerbation Referrals: Deisy HERNÁNDEZ [Outside] - 1 Week Evelyn Valdez MD [Primary Care Provider] - 1 Week Discharge Medications: New doxycycline monohydrate 100 mg Capsule 100 mg PO Q12H Qty: 10 0RF guaifenesin [Mucinex] 600 mg Tablet Extended Release 12hr 1,200 mg PO BID Qty: 30 0RF prednisone 10 mg tablet See Taper PO DIRECTED Qty: 30 0RF Taper: Prednisone 40 mg daily for 3 Days and 0 Hour 30 mg daily for 3 Days and 0 Hour 20 mg daily for 3 Days and 0 Hour 10 mg daily for 3 Days and 0 Hour Rx Instructions: see taper instructions Continued sodium chloride 0.9 % solution for nebulization 3 ml inhalation Q4H PRN (Reason: shortness of breath or CONGESTION) 90 Days Qty: 270 3RF flecainide 50 mg tablet 50 mg PO BID 90 Days Qty: 180 1RF levalbuterol HCl 1.25 mg/0.5 mL solution for nebulization 1.25 mg inhalation RQ4H WHILE AWAKE 90 Days Qty: 180 5RF fluticasone propion-salmeterol [Wixela Inhub] 500-50 mcg/dose blister with device 1 inh inhalation BID 90 Days Qty: 3 1RF acetaminophen 500 mg Tablet 1,000 mg PO Q6H PRN (Reason: Back Pain) multivitamin Tablet 1 tab PO DAILY warfarin 5 mg tablet 5 mg PO SUMOWEFR@1800 Protocol: Dose Management Condition: Saturday (Week One) Dose/Route: 5 mg Instruction: 1 x 5 mg tablet Condition: Saturday Dose/Route: 5 mg Instruction: 1 x 5 mg tablet Condition: Saturday Dose/Route: 7.5 mg Instruction: 1.5 x 5 mg tablets Condition: Saturday Dose/Route: 5 mg Instruction: 1 x 5 mg tablet Condition: Dose/Route: 7.5 mg Instruction: 1.5 x 5 mg tablets Condition: Saturday Dose/Route: 5 mg Instruction: 1 x 5 mg tablet Condition: Saturday Dose/Route: 7.5 mg Instruction: 1.5 x 5 mg tablets Condition: Saturday ( Two) Dose/Route: 5 mg Instruction: 1 x 5 mg tablet Condition: Saturday Dose/Route: 5 mg Instruction: 1 x 5 mg tablet Condition: Saturday Dose/Route: 7.5 mg Instruction: 1.5 x 5 mg tablets Condition: Saturday Dose/Route: 5 mg Instruction: 1 x 5 mg tablet Condition: Dose/Route: 7.5 mg Instruction: 1.5 x 5 mg tablets Condition: Saturday Dose/Route: 5 mg Instruction: 1 x 5 mg tablet Condition: Saturday Dose/Route: 7.5 mg Instruction: 1.5 x 5 mg tablets Protocol Text: Adjustment Start Date: Saturday09/18/22 INR Value: 2.4 INR Date: 09/18/22 Recheck Date: 10/02/22 Additional Instructions: INR is in range continue same dosing balance greens and reds in diet GOOD [employer]!!!! warfarin 5 mg tablet 7.5 mg PO TUTHSA@1800 Protocol: Dose Management Condition: Saturday (Week One) Dose/Route: 5 mg Instruction: 1 x 5 mg tablet Condition: Saturday Dose/Route: 5 mg Instruction: 1 x 5 mg tablet Condition: Saturday Dose/Route: 7.5 mg Instruction: 1.5 x 5 mg tablets Condition: Saturday Dose/Route: 5 mg Instruction: 1 x 5 mg tablet Condition: Dose/Route: 7.5 mg Instruction: 1.5 x 5 mg tablets Condition: Saturday Dose/Route: 5 mg Instruction: 1 x 5 mg tablet Condition: Saturday Dose/Route: 7.5 mg Instruction: 1.5 x 5 mg tablets Condition: Saturday ( Two) Dose/Route: 5 mg Instruction: 1 x 5 mg tablet Condition: Saturday Dose/Route: 5 mg Instruction: 1 x 5 mg tablet Condition: Saturday Dose/Route: 7.5 mg Instruction: 1.5 x 5 mg tablets Condition: Saturday Dose/Route: 5 mg Instruction: 1 x 5 mg tablet Condition: Dose/Route: 7.5 mg Instruction: 1.5 x 5 mg tablets Condition: Saturday Dose/Route: 5 mg Instruction: 1 x 5 mg tablet Condition: Saturday Dose/Route: 7.5 mg Instruction: 1.5 x 5 mg tablets Protocol Text: Adjustment Start Date: Saturday09/18/22 INR Value: 2.4 INR Date: 09/18/22 Recheck Date: 10/02/22 Additional Instructions: INR is in range continue same dosing balance greens and reds in diet [employer]!!!! furosemide 40 mg tablet 40 mg PO BID senna 8.6 mg capsule 25.8 mg PO BEDTIME docusate sodium 100 mg capsule 200 mg PO DAILY diltiazem HCl 120 mg capsule,extended release 24hr 120 mg PO DAILY atorvastatin 20 mg tablet 20 mg PO DAILY potassium chloride 10 mEq tablet extended release 10 meq PO DAILY Discharge Orders: Discharge Order (Routine); Ordered 10/02/22 Ordered By: Rustam Núñez Diet: Low salt diet Activity on Discharge: As tolerated Stand Alone Forms: Patient Portal Discharge page Care Plan Goals: Read below Health Concerns: Read below Plan of Treatment: Read below Assessment: You were admitted for treatment of difficulties breathing. Found to have COPD exacerbation with evidence of pneumonia treated with IV antibiotics, steroids and nebulizers with fair response over the course of hospital stay. Still requiring higher than baseline O2 supplement. Evaluated by produce service team member who suggested tapering Prednisone and continue Doxycycline on discharge. To follow outpatient for titration study. Continue Doxycycline and Mucinex as prescribed Tapering dose prednisone Wean down Oxygen supplement at home as tolerated , Continue chest physiotherapy To follow with Pulmonology as outpatient for titration study
--- NOTE | 2022-10-02 12:09 | W.MHC.F2F ---
Service Date Service Date: 10/02/22 Encounter Date of encounter: 10/02/22 Reasons for Services Signs and symptoms assessed: Hypoxic respiratory failure , need to wean down O2 as tolerated Reason for half-way: medication management and teach disease management Homebound: Leaving the home is medically contraindicated at this time without the asist of a device and/or another person due th the listed conditions above and below. Reason homebound: shortness of breath with minimal effort Certification: Based on the above findings, I certify that this patient is confined to the home and needs intermittent half-way care, physical therapy and/or speech therapy, or continues to need occupational therapy. The patient is under my care, and I have initiated the establishment of the plan of care. The patient will be followed by a physician who will periodically review the plan of care. Time Spent With Patient Time: Total time managing care of this patient today ____ minutes.
--- NOTE | 2022-10-02 13:16 | MHC.CM.PN ---
Addendum entered by Taty Zhu 10/02/22 13:43: Second IMM given 10/02. Original Note: Pt medically cleared for D/C home with new [facility], pts to transport him home.
--- NOTE | 2022-10-03 12:41 | P.CDIM_ITS ---
PROVIDER RESPONSE TEXT: To clarify, the appropriate diagnosis supported by the clinical indicators: COPD exacerbation QUERY TEXT: PHYSICIAN'S DOCUMENTATION REQUEST Date of Query: 10/02/2022 10:00 AM EDT Patient Name: Jay Gonzales Admit Date: 09/28/2022 Dear Rustam Núñez, A review of the medical record indicates additional documentation may be needed. Please review below and update the documentation accordingly. Clinical Indicators: PN: 10/01 - Acute hypoxic respiratory failure due to PNA and some component of COPD, O2 to maintain sa t 88 to 93. Bronchodilators prn, IV Solumedrol, change to Prednisone at discharge. Based on the above, could you clarify the appropriate diagnosis, if significant, that supports the ab ove abnormalities and additional evaluation, monitoring, and/or treatment rendered: COPD exacerbation COPD not in exacerbation Other (explain)Clinically unable to determine (explain)Thank you, Seema Kitchen, CCS, CDIS Use of terms such as suspected, likely, concern for, or probable (associated with a specific diagnosi s that is being evaluated, monitored, or treated as if it exists) are acceptable and can be coded in the inpatient se tting, when documented at the time of discharge. Please use your independent medical judgment in providing your response. THIS QUERY IS PART OF THE PERMANENT MEDICAL RECORD
== END 2022-10-02 13:45 | disposition home health service (06) | DRG 193 ==
LOC: HO.ED 23:08 → HO.EDOVER 23:16 → HO.IMC 09-28 00:56
PROVIDERS: Hospitalist; Internal Medicine; Physician Assistant; Admitting Provider Student in an Organized Health Care Education/Training Program; Emergency Provider Emergency Medicine; PCP Internal Medicine; Visit Provider Student in an Organized Health Care Education/Training Program
DX: J18.9 Pneumonia, unspecified organism (principal); J96.01 Acute respiratory failure with hypoxia; J44.0 Chronic obstructive pulmonary disease with (acute) lower respiratory infection; J44.1 Chronic obstructive pulmonary disease with (acute) exacerbation; I50.32 Chronic diastolic (congestive) heart failure; I48.21 Permanent atrial fibrillation; E78.2 Mixed hyperlipidemia; G47.33 Obstructive sleep apnea (adult) (pediatric); Z20.822 Contact with and (suspected) exposure to COVID-19; Z87.891 Personal history of nicotine dependence; Z79.01 Long term (current) use of anticoagulants; Z79.51 Long term (current) use of inhaled steroids; Z79.899 Other long term (current) drug therapy
CPT/HCPCS: 36415; 71045; 80048; 80076; 82803; 83605; 83735; 83880; 84484; 85025; 85610; 87040; 87070; 87205; 87502; 87633; 87635; 93005; 94640; 94660; 97162; 99285; J0456; J0696; J1940; J2920

== ENCOUNTER → 2022-09-27 22:50 | Outpatient (BNV) | payer MEDICARE, SELFPAY | PROVIDERS: Admitting Provider Student in an Organized Health Care Education/Training Program; Emergency Provider Emergency Medicine; PCP Internal Medicine; Visit Provider Student in an Organized Health Care Education/Training Program | DX: A41.9 Sepsis, unspecified organism (principal); J96.21 Acute and chronic respiratory failure with hypoxia; J44.1 Chronic obstructive pulmonary disease with (acute) exacerbation; I50.30 Unspecified diastolic (congestive) heart failure; G47.33 Obstructive sleep apnea (adult) (pediatric); Z99.89 Dependence on other enabling machines and devices; J18.9 Pneumonia, unspecified organism | CPT/HCPCS: 99222; 99232; 99239; G0180 ==

== ENCOUNTER → 2022-09-27 22:50 | Outpatient (BNV) | payer MEDICARE, SELFPAY | PROVIDERS: Admitting Provider Student in an Organized Health Care Education/Training Program; Emergency Provider Emergency Medicine; PCP Internal Medicine; Visit Provider Hospitalist | DX: J44.1 Chronic obstructive pulmonary disease with (acute) exacerbation (principal); I50.30 Unspecified diastolic (congestive) heart failure; G47.33 Obstructive sleep apnea (adult) (pediatric); Z99.89 Dependence on other enabling machines and devices; J18.9 Pneumonia, unspecified organism | CPT/HCPCS: 99222 ==

== ENCOUNTER → 2022-10-03 11:34 | Outpatient (BNVA) | payer MEDICARE, SELFPAY | PROVIDERS: PCP Internal Medicine; Visit Provider Internal Medicine ==

== ENCOUNTER → 2022-10-04 13:39 | Outpatient (BNVA) | payer MEDICARE, SELFPAY | PROVIDERS: PCP Internal Medicine; Visit Provider Internal Medicine ==

== ENCOUNTER → 2022-10-08 14:55 | Outpatient (BNVA) | payer MEDICARE, SELFPAY | PROVIDERS: PCP Internal Medicine; Visit Provider Internal Medicine ==

== ENCOUNTER 2022-10-11 13:02 | Outpatient (AMB) | payer MEDICARE, SELFPAY ==
--- NOTE | 2022-10-11 14:53 | MHC.OFFVISCO ---
Intake Intake Visit Reasons: Anticoagulation Allergies albuterol Adverse Reaction (Intermediate, Verified 10/11/22 14:38) Palpitations amoxicillin [From Augmentin] Adverse Reaction (Intermediate, Verified 10/11/22 14:38) Nausea and Vomiting, dizziness clavulanic acid [From Augmentin] Adverse Reaction (Intermediate, Verified 10/11/22 14:38) Nausea and Vomiting, dizziness Medication List - Last Reconciled 10/11/22 by Chaya Yarbrough RN acetaminophen 1,000 mg PO Q6H PRN atorvastatin 20 mg PO DAILY ciclopirox 0.77% topical diltiazem HCl 120 mg PO DAILY docusate sodium 200 mg PO DAILY flecainide 50 mg PO BID 90 days fluticasone propion-salmeterol 500-50 mcg/dose (Wixela Inhub) 1 inh inhalation BID 90 days furosemide 40 mg PO BID guaifenesin ER (Mucinex) 1,200 mg (2 x 600 mg) PO BID levalbuterol HCl 1.25 mg (0.5 mL) inhalation RQ4H WHILE AWAKE 90 days multivitamin 1 tab PO DAILY potassium chloride ER 10 mEq PO DAILY prednisone See Taper mg PO DIRECTED sennosides (senna) 25.8 mg PO BEDTIME sodium chloride 0.9% 3 mL inhalation Q4H PRN 90 days warfarin 5 mg See Protocol PO SUMOWEFR@1800 warfarin 7.5 mg See Protocol PO TUTHSA@1800 Nursing Note INR received from SUMAYA MONCADA INR today is 3.2 T/c to nurse T/c to patient - SPOKE WITH PT Patient status: STARTED ON TESSLON PEARLS TO HELP COUGH, HE STATED HE IS ABLE TO BRING UP SOME SPUTUM THAT IS SLIGHTLY YELLOW- HE WAS ENC TO KEEP UP DRINKING FLUIDS, Denies any signs and symptoms of any unusual bruising, bleeding or clotting Medication or supplements: TESSLON PEARLS Diet: GOOD, ENC TO EAT DARK GREENS TODAY AND ESPECIALLY NEXT WEEK DUE TO ANTBX HE JUST COMPLETED Activity: TOLERATED Dose: KEEP USUAL DOSE 7.5MG X 3 DAYS/ 5MG X 4 DAYS Dosing and diet instructions given with next retest date of 10/17/22 Nurse and patient verbalizes understanding of instructions given with accurate read back Anti-Coag Initial Assessment Social Hx Patient Tobacco Use Status: Former Tobacco user alcohol intake: current Alcohol intake frequency: a few times a week Coding Level of Care Code Est Patient Level 1 Diagnoses Current use of anticoagulant therapy Z79.01 Assessment & Plan Assessment & Plan (1) Current use of anticoagulant therapy: Code(s): Z79.01 - 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
== END 2022-10-11 14:58 | disposition home or self-care (01) ==
LOC: HO.ACS 13:02
PROVIDERS: PCP Internal Medicine; Visit Provider Internal Medicine
DX: Z79.01 Long term (current) use of anticoagulants (principal)

== ENCOUNTER → 2022-10-11 13:02 | Outpatient (BNVA) | payer MEDICARE, SELFPAY | PROVIDERS: PCP Internal Medicine; Visit Provider Internal Medicine | DX: I48.21 Permanent atrial fibrillation (principal); Z86.718 Personal history of other venous thrombosis and embolism; Z79.01 Long term (current) use of anticoagulants; Z51.81 Encounter for therapeutic drug level monitoring | CPT/HCPCS: 99211 ==

== ENCOUNTER → 2022-10-17 13:06 | Outpatient (BNVA) | payer MEDICARE, SELFPAY | PROVIDERS: PCP Internal Medicine; Visit Provider Internal Medicine ==

== ENCOUNTER → 2022-10-22 11:28 | Outpatient (BNVA) | payer MEDICARE, SELFPAY | PROVIDERS: PCP Internal Medicine; Visit Provider Internal Medicine ==

== ENCOUNTER → 2022-10-24 15:12 | Outpatient (BNVA) | payer MEDICARE, SELFPAY | PROVIDERS: PCP Internal Medicine; Visit Provider Internal Medicine ==

== ENCOUNTER → 2022-11-01 15:07 | Outpatient (BNVA) | payer MEDICARE, SELFPAY | PROVIDERS: PCP Internal Medicine; Visit Provider Internal Medicine ==

== ENCOUNTER → 2022-11-06 13:36 | Outpatient (BNVA) | payer MEDICARE, SELFPAY | PROVIDERS: PCP Internal Medicine; Visit Provider Internal Medicine | DX: I48.19 Other persistent atrial fibrillation (principal); Z86.718 Personal history of other venous thrombosis and embolism; Z79.01 Long term (current) use of anticoagulants; Z51.81 Encounter for therapeutic drug level monitoring | CPT/HCPCS: 85610 ==

== ENCOUNTER 2022-11-13 13:23 | Outpatient (AMB) | payer MEDICARE, SELFPAY ==
--- NOTE | 2022-11-13 13:37 | MHC.OFFVISCO ---
Intake Intake Visit Reasons: Anticoagulation Allergies albuterol Adverse Reaction (Intermediate, Verified 11/13/22 13:32) Palpitations amoxicillin [From Augmentin] Adverse Reaction (Intermediate, Verified 11/13/22 13:32) Nausea and Vomiting, dizziness clavulanic acid [From Augmentin] Adverse Reaction (Intermediate, Verified 11/13/22 13:32) Nausea and Vomiting, dizziness Medication List - Last Reconciled 11/13/22 by Kelly Cabrera RN acetaminophen 1,000 mg PO Q6H PRN atorvastatin 20 mg PO DAILY benzonatate 200 mg PO BID PRN ciclopirox 0.77% topical diltiazem HCl 120 mg PO DAILY docusate sodium 200 mg PO DAILY flecainide 50 mg PO BID 90 days fluticasone propion-salmeterol 500-50 mcg/dose (Wixela Inhub) 1 inh inhalation BID 90 days furosemide 40 mg PO BID levalbuterol HCl 1.25 mg (0.5 mL) inhalation RQ4H WHILE AWAKE 90 days multivitamin 1 tab PO DAILY potassium chloride ER 10 mEq PO DAILY sennosides (senna) 25.8 mg PO BEDTIME warfarin 5 mg See Protocol PO SUMOWEFR@1800 warfarin 7.5 mg See Protocol PO TUTHSA@1800 Nursing Note INR: 2.5- in therapeutic range Medications and supplements reviewed- no changes No changes in health, diet, medications, or supplements, Denies any signs and symptoms of bleeding or bruising or clotting. Bleeding, bruising, clotting discussed Nutritional guidance given Dose: 7.5mg x 2, 5mg x 5 F/U INR: 10 days Patient verbalizes understanding of instructions given pt states starting new diet with protein bars Anti-Coag Initial Assessment Social Hx Patient Tobacco Use Status: Former Tobacco user alcohol intake: current Alcohol intake frequency: a few times a week Coding Level of Care Code Est Patient Level 1 Diagnoses Current use of anticoagulant therapy Z79.01 Results AMB INR Fingerstick AMB INR Fingerstick 2.5 Last Edit by Kelly Cabrera RN on 11/13/22 13:38 Assessment & Plan Assessment & Plan (1) Current use of anticoagulant therapy: Code(s): Z79.01 - salvage determiner (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 Medications: New prednisone 10 mg PO DAILY
[2022-11-13 13:38] LABS: Prothrombin Time Whole Bld POC 30.4 sec (11.1-13.5); ~PT, ~INR - Anti Coag Clinic 2.5 (0.9-1.1)
== END 2022-11-13 13:42 | disposition home or self-care (01) ==
LOC: HO.ACS 13:23
PROVIDERS: PCP Internal Medicine; Visit Provider Internal Medicine
DX: Z79.01 Long term (current) use of anticoagulants (principal)

== ENCOUNTER → 2022-11-13 13:23 | Outpatient (BNVA) | payer MEDICARE, SELFPAY | PROVIDERS: PCP Internal Medicine; Visit Provider Internal Medicine | DX: I48.19 Other persistent atrial fibrillation (principal); Z86.718 Personal history of other venous thrombosis and embolism; Z51.81 Encounter for therapeutic drug level monitoring; Z79.01 Long term (current) use of anticoagulants | CPT/HCPCS: 85610; 99211 ==

== ENCOUNTER 2022-11-20 13:34 | Outpatient (AMB) | payer MEDICARE, SELFPAY ==
[2022-11-20 13:52] VITALS: BP 120/62; PULSE 93; O2SAT 91; BMI 37.5
--- NOTE | 2022-11-20 13:52 | MHC.OFFVIS ---
Intake Vital Signs 11/20/22 13:52 Height 5 ft 9 in Weight 254 lb BMI 37.5 BP 120/62 Blood Pressure Location Lt brachial Position Sitting Pulse 93 Pulse Source Pulse Oximeter Pulse Oximetry (%) 91 L Oxygen Delivery Method Room Air Intake Visit Reasons: Obstructive sleep apnea follow-up Intake Note: pt is here for follow up and has been having 4-5 hospitalizations since last year, all for breathing. Were on antiobiotic and prednisone 10mg daily (by pcp) but 30mg taper by urgent care and zpak. Still has a cough, still wheezing. Using oxygen at home, ? repeat sleep study. Filler Shredder Required: No Allergies albuterol Adverse Reaction (Intermediate, Verified 11/20/22 13:57) Palpitations amoxicillin [From Augmentin] Adverse Reaction (Intermediate, Verified 11/20/22 13:57) Nausea and Vomiting, dizziness clavulanic acid [From Augmentin] Adverse Reaction (Intermediate, Verified 11/20/22 13:57) Nausea and Vomiting, dizziness Medication List - Last Reconciled 11/20/22 by Cheil Clarke MD acetaminophen 1,000 mg PO Q6H PRN atorvastatin 20 mg PO DAILY benzonatate 200 mg PO BID PRN ciclopirox 0.77% topical diltiazem HCl 120 mg PO DAILY docusate sodium 200 mg PO DAILY flecainide 50 mg PO BID 90 days fluticasone propion-salmeterol 500-50 mcg/dose (Wixela Inhub) 1 inh inhalation BID 90 days furosemide 40 mg PO BID levalbuterol HCl 1.25 mg (0.5 mL) inhalation RQ4H WHILE AWAKE 90 days multivitamin 1 tab PO DAILY potassium chloride ER 10 mEq PO DAILY prednisone 10 mg PO DAILY sennosides (senna) 25.8 mg PO BEDTIME warfarin 5 mg See Protocol PO SUMOWEFR@1800 warfarin 7.5 mg See Protocol PO TUTHSA@1800 Do you need a note to return to daycare/school/sports/work: No HPI Obstructive sleep apnea follow-up HPI Details MR. JARAMILLO 77 YEARS OLD GENTLEMAN, IS HERE FOR FOLLOW-UP. IN SEPTEMBER OF THIS YEAR HE WAS ADMITTED TO THE HOSPITAL WITH CONGESTIVE HEART FAILURE WELL RESPIRATORY FAILURE, HE WAS TREATED WITH HIGH-FLOW FOLLOWED BY CPAP , AND OXYGEN HE HAD ALSO BEEN TREATED WITH A COURSE OF ANTIBIOTIC AND STEROIDS. HE HAS RECOVERED AT HOME SLOWLY. HE IS USING OXYGEN 2 L/MINUTE P.R.N. DURING THE DAYTIME. AT NIGHT HE IS USING CPAP AT A PRESSURE OF 15 CM. HE AND HIS HAVE QUESTION ABOUT, WHY HE KEEPS ON GETTING RECURRENT EXACERBATIONS. AND IF HE WOULD NEED ANY NEW SLEEP STUDY/CPAP TITRATION. FORMERLY [facility] Medical History (Updated 11/20/22 @ 16:46 by Cheli Clarke MD) Restrictive airway disease (HFpEF) heart failure with preserved ejection fraction CHF exacerbation Cough Paroxysmal atrial fibrillation Lymphedema of both lower extremities DEREK on CPAP Obesity (BMI 35.0-39.9 without comorbidity) COPD (chronic obstructive pulmonary disease) Varicose veins of right lower extremity with inflammation Surgical History History of appendectomy Family History Father No problems noted. Mother No problems noted. Sister No problems noted. Sister No problems noted. Son No problems noted. Daughter No problems noted. Social History Household Members: Spouse Housing: House Do you presently have visiting nurse or other home services: No Alcohol intake: current Alcohol intake frequency: a few times a week Alcohol type: beer Patient Tobacco Use Status: Former Tobacco user service: Yes Current occupational status: retired Review of Systems Const All systems reviewed & are unremarkable except as noted in HPI and below Eyes Reports no additional complaints ENT Reports nasal congestion (Mild intermittent) Card Denies chest pain, Denies irregular heart rhythm, Reports leg edema and Reports dyspnea on exertion Resp Reports as per HPI and Reports dyspnea on exertion GI Reports no additional complaints Reports no additional complaints Musc Reports no additional complaints Skin/Breast Reports system reviewed and no additional complaints, except as documented Neuro Reports no additional complaints Psych Reports no additional complaints Physical Exam Vital Signs: Last Vital Signs Pulse 93 11/20/22 13:52 BP 120/62 11/20/22 13:52 Pulse Ox 91 L 11/20/22 13:52 Oxygen Delivery Method Room Air 11/20/22 13:52 BMI result Body Mass Index 37.5 Const General: comfortable, no acute distress, alert and awake Orientation/consciousness: patient oriented x3 HEENT Head: Yes normal to inspection General nose exam: No nasal polyps present and No nasal discharge present Face and sinus: Yes sinuses nontender Mouth: oropharynx abnormals (Narrow and crowded, Mallampati class 3) Throat: Yes posterior oropharynx normal Eyes General: appearance normal, both eyes and all related structures Neck Neck: Yes normal visual inspection, Yes no lymphadenopathy, Yes trachea midline and Yes no JVD Thyroid: Thyroid normal Chest Chest palpation & inspection: normal inspection of the chest, normal palpation of entire chest wall and no tenderness Resp Other: Percussion note resonant, breath sounds are distant on both sides, and decreased especially over the LEFT BASE. Prolonged expiratory phase. There are no wheezes or crepitations. Cardio Palpation: normal PMI Rate: regular rate Rhythm: regular rhythm Heart sounds: no gallops and Murmur heart sound present (A LOUD SYSTOLIC MURMUR ALONG THE LEFT STERNAL BORDER) GI Palpation (GI): Soft to palpation, nontender, No hepatosplenomegaly present, no masses and Other GI palpation findings present (Abdomen is the obese and protuberant) Auscultation: normal bowel sounds Back/Spine/Pelvis Thoracic/Lumbar Spine: thoracic and lumbar spine normal to inspection Skin General skin exam: no rashes or lesions noted Neuro General: patient oriented x3 and no focal motor deficits Cranial nerves: Yes CN's II-XII intact bilaterally Extrem General: Yes normal to inspection, Yes no calf tenderness and Yes venous stasis dermatitis (Both legs, more severe on the right side) Psych Mental Status: mental status grossly normal Speech and movement: Normal speech and movement present Assessment & Plan Assessment & Plan (1) COPD (chronic obstructive pulmonary disease): Comment: COPD IS REMAINING QUITE STABLE WITH THE REGULAR REGIMEN,. NOW THERE HAS BEEN AN ACUTE EXACERBATION DUE TO RECENT ACUTE BRONCHITIS. TX: ARTIEXELA 500-50 1 INHALATION B.I.D.. LEV-ALBUTEROL SOLUTION IN THE NEBULIZER Q 4 HOURS P.R.N. BECAUSE OF HIS FREQUENT, ACUTE EXACERBATIONS DURING THE PAST YEAR, I THINK I WOULD KEEP HIM ON PREDNISONE 5 MG A DAY FOR SEVERAL WEEKS. ALSO WILL START HIM ON AZITHROMYCIN 250 MG 3 TIMES A WEEK. CHEST X-RAY, AND VENOUS BLOOD GAS ORDER. Code(s): J44.9 - Chronic obstructive pulmonary disease, unspecified Qualifiers: COPD type: COPD with acute exacerbation Qualified Code(s): J44.1 - Chronic obstructive pulmonary disease with (acute) exacerbation (2) SOB (shortness of breath) on exertion: Comment: SHORTNESS OF BREATH ON EXERTION IS SECONDARY TO COPD, MODERATE OBESITY, AND HIS ASSOCIATED HEART CONDITION. ENCOURAGED TO DO EXERCISE ON A DAILY BASIS . Code(s): R06.02 - Shortness of breath (3) (HFpEF) heart failure with preserved ejection fraction: Comment: PATIENT ALSO HAS PAROXYSMAL ATRIAL FIBRILLATION AND, CONGESTIVE HEART FAILURE, CONTRIBUTING TO HIS INCREASED SHORTNESS OF BREATH. Code(s): I50.30 - Unspecified diastolic (congestive) heart failure (4) Paroxysmal atrial fibrillation: Comment: PAROXYSMAL ATRIAL FIBRILLATION BEING CONTROLLED WITH DILTIAZEM WELL FLECAINIDE Code(s): I48.0 - Paroxysmal atrial fibrillation (5) Restrictive airway disease: Comment: HE HAS CHRONICALLY ELEVATED LEFT HEMIDIAPHRAGM, THIS CONTRIBUTES TO HIS RESTRICTIVE LUNG DISORDER. ADVISED TO DO DEEP BREATHING EXERCISES WITH INCENTIVE SPIROMETRY 3 TO 4 TIMES A DAY. Code(s): J98.4 - Other disorders of lung Orders: Orders Venous Blood Gas Today E66.9 - Obesity, unspecified, J44.9 - Chronic obstructive pulmonary disease, unspecified, R06.02 - Shortness of breath XR chest 2V Today I50.30 - Unspecified diastolic (congestive) heart failure, J44.9 - Chronic obstructive pulmonary disease, unspecified, R06.02 - Shortness of breath Coding Level of Care Code Est Pt Level 4 (20259) Diagnoses COPD (chronic obstructive pulmonary disease) J44.1 COPD type: COPD with acute exacerbation SOB (shortness of breath) on exertion R06.02 (HFpEF) heart failure with preserved ejection fraction I50.30 Paroxysmal atrial fibrillation I48.0 Restrictive airway disease J98.4
== END 2022-11-20 14:33 | disposition home or self-care (01) ==
PROVIDERS: PCP Internal Medicine; Visit Provider Internal Medicine
DX: J44.1 Chronic obstructive pulmonary disease with (acute) exacerbation (principal); R06.02 Shortness of breath; I50.30 Unspecified diastolic (congestive) heart failure; I48.0 Paroxysmal atrial fibrillation; J98.4 Other disorders of lung
CPT/HCPCS: 99214

== ENCOUNTER 2022-11-20 13:34 | Outpatient (REF) | payer MEDICARE, SELFPAY ==
--- NOTE | ~2022-11-20 | XR_ITS ---
EXAMINATION: XR CHEST CLINICAL INFORMATION: CHF COMPARISON: 09/30/2022 TECHNIQUE: 2 views of the chest were obtained. FINDINGS: There is low lung volume bilaterally with: Newly developed right lower lobe opacity possibly pneumonia versus atelectasis and there is adjacent to the elevated left hemidiaphragm atelectasis on the left. Patient is status post median sternotomy for CABG procedure. There is no cardiomegaly or vascular congestion. XR/XR chest 2V IMPRESSION: Right lower lobe pneumonia versus atelectasis. Left lower lobe atelectasis and elevation of left hemidiaphragm.
== END 2022-11-20 13:35 | disposition home or self-care (01) ==
LOC: HO.XRAY 13:34
PROVIDERS: PCP Internal Medicine; Visit Provider Internal Medicine
DX: J44.1 Chronic obstructive pulmonary disease with (acute) exacerbation (principal); R06.02 Shortness of breath; I50.30 Unspecified diastolic (congestive) heart failure; I48.0 Paroxysmal atrial fibrillation; J98.4 Other disorders of lung; E66.9 Obesity, unspecified
CPT/HCPCS: 36415; 71046; 82803; 99212

== ENCOUNTER 2022-11-23 13:19 | Outpatient (AMB) | payer MEDICARE, SELFPAY ==
--- NOTE | 2022-11-23 13:26 | MHC.OFFVISCO ---
Intake Intake Visit Reasons: Anticoagulation Allergies albuterol Adverse Reaction (Intermediate, Verified 11/23/22 13:21) Palpitations amoxicillin [From Augmentin] Adverse Reaction (Intermediate, Verified 11/23/22 13:21) Nausea and Vomiting, dizziness clavulanic acid [From Augmentin] Adverse Reaction (Intermediate, Verified 11/23/22 13:21) Nausea and Vomiting, dizziness Medication List - Last Reconciled 11/23/22 by Kelly Cabrera RN acetaminophen 1,000 mg PO Q6H PRN atorvastatin 20 mg PO DAILY benzonatate 200 mg PO BID PRN ciclopirox 0.77% topical diltiazem HCl 120 mg PO DAILY docusate sodium 200 mg PO DAILY doxycycline hyclate 100 mg PO BID 10 days flecainide 50 mg PO BID 90 days fluticasone propion-salmeterol 500-50 mcg/dose (Wixela Inhub) 1 inh inhalation BID 90 days furosemide 40 mg PO BID levalbuterol HCl 1.25 mg (0.5 mL) inhalation RQ4H WHILE AWAKE 90 days multivitamin 1 tab PO DAILY potassium chloride ER 10 mEq PO DAILY prednisone 10 mg PO DAILY prednisone 5 mg PO DAILY 30 days sennosides (senna) 25.8 mg PO BEDTIME warfarin 5 mg See Protocol PO SUMOWEFR@1800 warfarin 7.5 mg See Protocol PO TUTHSA@1800 Nursing Note INR: 2.4- in therapeutic range Medications and supplements reviewed pt to urgent care on 11/17/22 for resp issues, completed prednisone 40mg daily x5, z pack completed on 11/21/22, and last dose of cefpocoxime tonght. this was for 7 days. pt states feeling much better No changes in health, diet, medications, or supplements, Denies any signs and symptoms of bleeding or bruising or clotting. 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
[2022-11-23 13:27] LABS: ~PT, ~INR - Anti Coag Clinic 2.4 (0.9-1.1)
== END 2022-11-23 13:33 | disposition home or self-care (01) ==
LOC: HO.ACS 13:19
PROVIDERS: PCP Internal Medicine; Visit Provider Internal Medicine
DX: Z79.01 Long term (current) use of anticoagulants (principal)

== ENCOUNTER → 2022-11-23 13:19 | Outpatient (BNVA) | payer MEDICARE, SELFPAY | PROVIDERS: PCP Internal Medicine; Visit Provider Internal Medicine | DX: I48.19 Other persistent atrial fibrillation (principal); Z86.718 Personal history of other venous thrombosis and embolism; Z79.01 Long term (current) use of anticoagulants; Z51.81 Encounter for therapeutic drug level monitoring | CPT/HCPCS: 85610; 99211 ==

== ENCOUNTER 2022-11-30 13:20 | Outpatient (AMB) | payer MEDICARE, SELFPAY ==
[2022-11-30 13:35] LABS: Prothrombin Time Whole Bld POC 29.7 sec (11.1-13.5); ~PT, ~INR - Anti Coag Clinic 2.5 (0.9-1.1)
--- NOTE | 2022-11-30 13:40 | MHC.OFFVISCO ---
Intake Intake Visit Reasons: Anticoagulation Allergies albuterol Adverse Reaction (Intermediate, Verified 11/30/22 13:28) Palpitations amoxicillin [From Augmentin] Adverse Reaction (Intermediate, Verified 11/30/22 13:28) Nausea and Vomiting, dizziness clavulanic acid [From Augmentin] Adverse Reaction (Intermediate, Verified 11/30/22 13:28) Nausea and Vomiting, dizziness Medication List - Last Reconciled 11/30/22 by Chaya Yarbrough RN acetaminophen 1,000 mg PO Q6H PRN atorvastatin 20 mg PO DAILY azithromycin mg PO benzonatate 200 mg PO BID PRN cefpodoxime 200 mg PO BID ciclopirox 0.77% topical codeine-guaifenesin 10-100 mg/5 mL 5 mL PO TID PRN diltiazem HCl 120 mg PO DAILY docusate sodium 200 mg PO DAILY doxycycline hyclate 100 mg PO BID 10 days doxycycline monohydrate 100 mg PO BID flecainide 50 mg PO BID 90 days fluticasone propion-salmeterol 500-50 mcg/dose (Wixela Inhub) 1 inh inhalation BID 90 days furosemide 40 mg PO BID levalbuterol HCl 1.25 mg (0.5 mL) inhalation RQ4H WHILE AWAKE 90 days multivitamin 1 tab PO DAILY potassium chloride ER 10 mEq PO DAILY prednisone 10 mg PO DAILY prednisone 5 mg PO DAILY 30 days sennosides (senna) 25.8 mg PO BEDTIME warfarin 5 mg See Protocol PO SUMOWEFR@1800 warfarin 7.5 mg See Protocol PO TUTHSA@1800 Nursing Note INR: 2.5 in therapeutic range Medications and supplements reviewed HE IS S/P URI AND COMPLETING ANTBIOTIC TX , He is remaining on low joshua dose of prednisone and a 3 day / week maintenance dose of azythromyacin DeSnies any signs and symptoms of bleeding or bruising or clotting. 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
== END 2022-11-30 13:44 | disposition home or self-care (01) ==
LOC: HO.ACS 13:20
PROVIDERS: PCP Internal Medicine; Visit Provider Internal Medicine
DX: Z79.01 Long term (current) use of anticoagulants (principal)

== ENCOUNTER → 2022-11-30 13:20 | Outpatient (BNVA) | payer MEDICARE, SELFPAY | PROVIDERS: PCP Internal Medicine; Visit Provider Internal Medicine | DX: I48.19 Other persistent atrial fibrillation (principal); I82.402 Acute embolism and thrombosis of unspecified deep veins of left lower extremity; Z51.81 Encounter for therapeutic drug level monitoring; Z79.01 Long term (current) use of anticoagulants | CPT/HCPCS: 85610; 99211 ==

== ENCOUNTER 2022-12-14 13:52 | Outpatient (AMB) | payer MEDICARE, SELFPAY ==
--- NOTE | 2022-12-14 14:03 | MHC.OFFVISCO ---
Intake Intake Visit Reasons: Anticoagulation Allergies albuterol Adverse Reaction (Intermediate, Verified 12/14/22 13:59) Palpitations amoxicillin [From Augmentin] Adverse Reaction (Intermediate, Verified 12/14/22 13:59) Nausea and Vomiting, dizziness clavulanic acid [From Augmentin] Adverse Reaction (Intermediate, Verified 12/14/22 13:59) Nausea and Vomiting, dizziness Medication List - Last Reconciled 12/14/22 by Chaya Yarbrough RN acetaminophen 1,000 mg PO Q6H PRN atorvastatin 20 mg PO DAILY azithromycin mg PO benzonatate 200 mg PO BID PRN ciclopirox 0.77% topical codeine-guaifenesin 10-100 mg/5 mL 5 mL PO TID PRN diltiazem HCl 120 mg PO DAILY docusate sodium 200 mg PO DAILY flecainide 50 mg PO BID 90 days fluticasone propion-salmeterol 500-50 mcg/dose (Wixela Inhub) 1 inh inhalation BID 90 days furosemide 40 mg PO BID levalbuterol HCl 1.25 mg (0.5 mL) inhalation RQ4H WHILE AWAKE 90 days multivitamin 1 tab PO DAILY potassium chloride ER 10 mEq PO DAILY prednisone 5 mg PO DAILY 30 days sennosides (senna) 25.8 mg PO BEDTIME warfarin 5 mg See Protocol PO SUMOWEFR@1800 warfarin 7.5 mg See Protocol PO TUTHSA@1800 Nursing Note INR: 2.3 in therapeutic range Medications and supplements reviewed ON Z-PACK MWF AND TAPPERING DOSE OF PREDNISONE 5MG TO DEEDEE Denies any signs and symptoms of bleeding or bruising or clotting. 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
[2022-12-14 14:04] LABS: Prothrombin Time Whole Bld POC 28.4 sec (11.1-13.5); ~PT, ~INR - Anti Coag Clinic 2.4 (0.9-1.1)
== END 2022-12-14 14:12 | disposition home or self-care (01) ==
LOC: HO.ACS 13:52
PROVIDERS: PCP Internal Medicine; Visit Provider Internal Medicine
DX: Z79.01 Long term (current) use of anticoagulants (principal)

== ENCOUNTER → 2022-12-14 13:52 | Outpatient (BNVA) | payer MEDICARE, SELFPAY | PROVIDERS: PCP Internal Medicine; Visit Provider Internal Medicine | DX: I48.19 Other persistent atrial fibrillation (principal); Z86.718 Personal history of other venous thrombosis and embolism; Z79.01 Long term (current) use of anticoagulants; Z51.81 Encounter for therapeutic drug level monitoring | CPT/HCPCS: 85610; 99211 ==

== ENCOUNTER 2022-12-18 12:21 | Outpatient (AMB) | payer MEDICARE, SELFPAY ==
--- NOTE | 2022-12-18 12:31 | MHC.OFFVIS ---
Intake Vital Signs 12/18/22 12:33 Height 5 ft 9 in Weight 249 lb 1.957 oz BMI 36.8 BP 120/66 Blood Pressure Location Lt brachial Position Sitting Pulse 76 Intake Visit Reasons: 6 month f/u Intake Note: 6 month follow up w/ EKG Chairman Of The Board Required: No Accompanied by: Self / Same As Patient Allergies albuterol Adverse Reaction (Intermediate, Verified 12/18/22 12:34) Palpitations amoxicillin [From Augmentin] Adverse Reaction (Intermediate, Verified 12/18/22 12:34) Nausea and Vomiting, dizziness clavulanic acid [From Augmentin] Adverse Reaction (Intermediate, Verified 12/18/22 12:34) Nausea and Vomiting, dizziness Medication List - Last Reconciled 12/18/22 by Justin Nava MD acetaminophen 1,000 mg PO Q6H PRN atorvastatin 20 mg PO DAILY diltiazem HCl 120 mg PO DAILY docusate sodium 200 mg PO DAILY flecainide 50 mg PO BID 90 days fluticasone propion-salmeterol 500-50 mcg/dose (Wixela Inhub) 1 inh inhalation BID 90 days furosemide 40 mg PO BID levalbuterol HCl 1.25 mg (0.5 mL) inhalation RQ4H WHILE AWAKE 90 days multivitamin 1 tab PO DAILY potassium chloride ER 10 mEq PO DAILY prednisone 5 mg PO DAILY 30 days sennosides (senna) 25.8 mg PO BEDTIME warfarin 5 mg See Protocol PO SUMOWEFR@1800 warfarin 7.5 mg See Protocol PO TUTHSA@1800 HPI HPI Comments History of Present Illness Details Jay comes for follow-up. He has been doing very well from cardiac perspective. He said he has been breathing well. Maintaining his usual activity. Denies any prolonged irregular heartbeat or palpitations. No heart failure symptoms. Denies any orthopnea, PND, leg edema. Taking all his medications. No bleeding issues or neurologic events. INRs have been within therapeutic range [facility] Medical History Restrictive airway disease (HFpEF) heart failure with preserved ejection fraction CHF exacerbation Cough Paroxysmal atrial fibrillation Lymphedema of both lower extremities DEREK on CPAP Obesity (BMI 35.0-39.9 without comorbidity) COPD (chronic obstructive pulmonary disease) Varicose veins of right lower extremity with inflammation Surgical History History of appendectomy Family History Father No problems noted. Mother No problems noted. Sister No problems noted. Sister No problems noted. Son No problems noted. Daughter No problems noted. Social History Household Members: Spouse Housing: House Do you presently have visiting nurse or other home services: No Alcohol intake: current Alcohol intake frequency: a few times a week Alcohol type: beer Patient Tobacco Use Status: Former Tobacco user service: Yes Current occupational status: retired Review of Systems Const Denies weakness ENT Denies dizziness Card Denies chest pain, Denies chest pain with activity, Denies syncope, Denies rapid heart rate, Denies pedal edema, Denies edema, Denies leg edema, Denies lightheadedness, Denies palpitations, Denies dyspnea, Denies dyspnea on exertion and Denies orthopnea Resp Denies cough, Denies dyspnea and Denies dyspnea on exertion GI Denies hematochezia and Denies change in stool character Musc Denies abnormal gait, Denies muscle cramps, Denies muscle weakness, Denies numbness, Denies radiating pain into limb and Denies tingling Neuro Denies abnormal gait, Denies dizziness, Denies syncope, Denies numbness, Denies tingling and Denies weakness Endo Denies palpitations Physical Exam Vital Signs: Last Vital Signs Pulse 76 12/18/22 12:33 BP 120/66 12/18/22 12:33 BMI result Body Mass Index 36.8 Const General: cooperative, comfortable, no acute distress and alert Nutritional Appearance: obese Orientation/consciousness: patient oriented x3 Limitations: no limitations Neck Neck: Yes trachea midline, Yes supple and Yes no JVD Chest Chest palpation & inspection: normal inspection of the chest Resp Effort & Inspection: normal respiratory effort Auscultation: clear to auscultation bilaterally and diminished lung sounds (Left greater than right) Cardio Jugular venous distension: no JVD Palpation: normal PMI Rate: regular rate Rhythm: regular rhythm Heart sounds: S1 normal heart sound present, S2 normal heart sound present, Murmur heart sound present systolic holo and at the left sternal border and Other heart sounds present (S4 present) Skin General skin exam: no rashes or lesions noted Neuro General: patient oriented x3 and no focal motor deficits Extrem General: No cyanosis, No edema and Yes other (Bilateral lymphedema, right greater than left) Psych Appearance: grossly normal Office Procedures EKG Details: EKG shows normal sinus rhythm with right bundle-branch block, unchanged [id number], Complete Assessment & Plan Assessment & Plan (1) Paroxysmal atrial fibrillation: Comment: PAROXYSMAL ATRIAL FIBRILLATION BEING CONTROLLED WITH DILTIAZEM WELL FLECAINIDE Code(s): I48.0 - Paroxysmal atrial fibrillation Plan: Paroxysmal atrial fibrillation with heart failure syndrome in this elderly gentleman. Has done extremely well with rhythm control approach will continue pursue rhythm control approach. Continue flecainide therapy in addition to Cardizem therapy. Continue full oral anticoagulation, currently on warfarin being followed by [facility]. Maintain target INR between 2 and 3. Advised to call me with new symptoms. Avoidance of stimulants was discussed. (2) (HFpEF) heart failure with preserved ejection fraction: Comment: PATIENT ALSO HAS PAROXYSMAL ATRIAL FIBRILLATION AND, CONGESTIVE HEART FAILURE, CONTRIBUTING TO HIS INCREASED SHORTNESS OF BREATH. Code(s): I50.30 - Unspecified diastolic (congestive) heart failure Plan: Heart failure preserved ejection fraction with diastolic dysfunction in the setting of atrial fibrillation. Clinically doing well with rhythm control approach will continue pursue the same. Continue current diuretic regimen. Daily weight monitoring avoidance of salt loading was discussed continue to optimize pulmonary function. Advised to increase activity level as tolerated. (3) Enlarged thoracic aorta: Code(s): I77.89 - Other specified disorders of arteries and arterioles Plan: Thoracic aortic enlargement. Continue monitor clinically. No interventions required. Follow-up echocardiogram 6 months time. Continue aggressive blood pressure control. Target goal LDL less than 100 mg/dL. Will follow up in the clinic in 6 months time, sooner p.r.n.. Thank you for allowing me to partake in his care Orders: Orders CA echo transthoracic complete 6 Months I50.30 - Unspecified diastolic (congestive) heart failure Coding Level of Care Code Est Pt Level 4 (53033) Diagnoses Paroxysmal atrial fibrillation I48.0 (HFpEF) heart failure with preserved ejection fraction I50.30 Enlarged thoracic aorta I77.89 CPT Codes EKG - CPT: 74001-[id number], Complete ([id number])
[2022-12-18 12:33] VITALS: BP 120/66; PULSE 76; BMI 36.8
== END 2022-12-18 12:51 | disposition home or self-care (01) ==
PROVIDERS: Visit Provider Internal Medicine Cardiovascular Disease
DX: I48.0 Paroxysmal atrial fibrillation (principal); I50.30 Unspecified diastolic (congestive) heart failure; I77.89 Other specified disorders of arteries and arterioles
CPT/HCPCS: 93010; 99214

== ENCOUNTER → 2022-12-18 12:21 | Outpatient (BNVA) | payer MEDICARE, SELFPAY | PROVIDERS: Visit Provider Internal Medicine Cardiovascular Disease | DX: I48.0 Paroxysmal atrial fibrillation (principal); I11.0 Hypertensive heart disease with heart failure; I50.30 Unspecified diastolic (congestive) heart failure; I45.10 Unspecified right bundle-branch block; I77.89 Other specified disorders of arteries and arterioles | CPT/HCPCS: 93005; 99212 ==

== ENCOUNTER 2022-12-25 13:54 | Outpatient (REF) | payer MEDICARE, SELFPAY ==
[2022-12-25 14:53] LABS: Venous Blood Gas Refer to POC result
[2022-12-25 14:55] LABS: VBG Base Excess 14.8 mmol/L; VBG HCO3 43 mmol/L (22-26); VBG pCO2 69 mmHg; VBG pH 7.39 (7.32-7.43); VBG pO2 34 mmHg
== END 2022-12-25 13:55 | disposition home or self-care (01) ==
LOC: HO.LAB 13:54
PROVIDERS: PCP Internal Medicine; Visit Provider Internal Medicine
DX: E66.9 Obesity, unspecified (principal); J44.1 Chronic obstructive pulmonary disease with (acute) exacerbation; J98.4 Other disorders of lung; R06.89 Other abnormalities of breathing
CPT/HCPCS: 36415; 82803; 99212

== ENCOUNTER 2022-12-25 13:54 | Outpatient (AMB) | payer MEDICARE, SELFPAY ==
[2022-12-25 14:07] VITALS: BP 120/64; PULSE 80; O2SAT 94; BMI 36.8
--- NOTE | 2022-12-25 14:07 | A.OFFVIS_ITS ---
Intake Vital Signs 12/25/22 14:07 Height 5 ft 9 in Weight 249 lb BMI 36.8 BP 120/64 Blood Pressure Location Lt brachial Position Sitting Pulse 80 Pulse Source Pulse Oximeter Pulse Oximetry (%) 94 Oxygen Delivery Method Room Air Intake Visit Reasons: Obstructive sleep apnea follow-up Intake Note: pt is here for follow up and states he is feeling pretty good, using nebulizer 1-2 times a day, some wheezing but it goes away, still using cpap. 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 Allergies albuterol Adverse Reaction (Intermediate, Verified 12/25/22 14:18) Palpitations amoxicillin [From Augmentin] Adverse Reaction (Intermediate, Verified 12/25/22 14:18) Nausea and Vomiting, dizziness clavulanic acid [From Augmentin] Adverse Reaction (Intermediate, Verified 12/25/22 14:18) Nausea and Vomiting, dizziness Medication List - Last Reconciled 12/25/22 by Cheli Clarke MD acetaminophen 1,000 mg PO Q6H PRN atorvastatin 20 mg PO DAILY diltiazem HCl 120 mg PO DAILY docusate sodium 200 mg PO DAILY flecainide 50 mg PO BID fluticasone propion-salmeterol 500-50 mcg/dose (Wixela Inhub) 1 inh inhalation BID 90 days furosemide 40 mg PO BID levalbuterol HCl 1.25 mg (0.5 mL) inhalation RQ4H WHILE AWAKE 90 days multivitamin 1 tab PO DAILY potassium chloride ER 10 mEq PO DAILY prednisone 5 mg PO DAILY 30 days sennosides (senna) 25.8 mg PO BEDTIME warfarin 5 mg See Protocol PO SUMOWEFR@1800 warfarin 7.5 mg See Protocol PO TUTHSA@1800 Do you need a note to return to daycare/school/sports/work: No HPI Obstructive sleep apnea follow-up HPI Details THIS 77 YEARS OLD VERY PLEASANT GENTLEMAN COMES FOR FOLLOW-UP, HE IS USING CPAP EVERY NIGHT AT LEAST 5 HOURS PER NIGHT. DOES NOT. HAVE TO USE OXYGEN SLEEPS GOOD AND REMAINS VERY ALERT DURING THE DAYTIME. HE CLAIMS THAT HIS BREATHING IS ACTUALLY MUCH. BETTER THAN BEFORE HAS VERY LITTLE COUGH OR WHEEZING. HE HAS HAD AN ELEMENT OF HYPOVENTILATION WITH HYPERCAPNIA FOR WHICH SHE IS BEING MONITORED CLOSELY. [facility] Medical History Hypoventilation Restrictive airway disease (HFpEF) heart failure with preserved ejection fraction CHF exacerbation Cough Paroxysmal atrial fibrillation Lymphedema of both lower extremities DEREK on CPAP Obesity (BMI 35.0-39.9 without comorbidity) COPD (chronic obstructive pulmonary disease) Varicose veins of right lower extremity with inflammation Surgical History History of appendectomy Family History Father No problems noted. Mother No problems noted. Sister No problems noted. Sister No problems noted. Son No problems noted. Daughter No problems noted. Social History Household Members: Spouse Housing: House Do you presently have visiting nurse or other home services: No Alcohol intake: current Alcohol intake frequency: a few times a week Alcohol type: beer Patient Tobacco Use Status: Former Tobacco user service: Yes Current occupational status: retired Review of Systems Const All systems reviewed & are unremarkable except as noted in HPI and below Eyes Reports no additional complaints ENT Reports nasal congestion (Mild intermittent) Card Denies chest pain, Denies irregular heart rhythm, Reports leg edema and Reports dyspnea on exertion Resp Reports as per HPI and Reports dyspnea on exertion GI Reports no additional complaints Reports no additional complaints Musc Reports no additional complaints Skin/Breast Reports system reviewed and no additional complaints, except as documented Neuro Reports no additional complaints Psych Reports no additional complaints Physical Exam Vital Signs: Last Vital Signs Pulse 80 12/25/22 14:07 BP 120/64 12/25/22 14:07 Pulse Ox 94 12/25/22 14:07 Oxygen Delivery Method Room Air 12/25/22 14:07 BMI result Body Mass Index 36.8 Const General: comfortable, no acute distress, alert and awake Orientation/consciousness: patient oriented x3 HEENT Head: Yes normal to inspection General nose exam: No nasal polyps present and No nasal discharge present Face and sinus: Yes sinuses nontender Mouth: oropharynx abnormals (Narrow and crowded, Mallampati class 3) Throat: Yes posterior oropharynx normal Eyes General: appearance normal, both eyes and all related structures Neck Neck: Yes normal visual inspection, Yes no lymphadenopathy, Yes trachea midline and Yes no JVD Thyroid: Thyroid normal Chest Chest palpation & inspection: normal inspection of the chest, normal palpation of entire chest wall and no tenderness Resp Other: Percussion note resonant, breath sounds are distant on both sides, and decreased especially over the LEFT BASE. Prolonged expiratory phase. There are no wheezes or crepitations. Cardio Palpation: normal PMI Rate: regular rate Rhythm: regular rhythm Heart sounds: no gallops and Murmur heart sound present (A LOUD SYSTOLIC MURMUR ALONG THE LEFT STERNAL BORDER) GI Palpation (GI): Soft to palpation, nontender, No hepatosplenomegaly present, no masses and Other GI palpation findings present (Abdomen is the obese and protuberant) Auscultation: normal bowel sounds Back/Spine/Pelvis Thoracic/Lumbar Spine: thoracic and lumbar spine normal to inspection Skin General skin exam: no rashes or lesions noted Neuro General: patient oriented x3 and no focal motor deficits Cranial nerves: Yes CN's II-XII intact bilaterally Extrem General: Yes normal to inspection, Yes no calf tenderness and Yes venous stasis dermatitis (Both legs, more severe on the right side) Psych Mental Status: mental status grossly normal Speech and movement: Normal speech and movement present Results Reviewed Results Reviewed: COMPLIANCE REPORT FOR THE LAST 30 NIGHTS REVIEWED HE HAS USED 28/30 NIGHTS, 93%. AVERAGE USE IT PER NIGHT IS 5 HOURS 16 MINUTES. NO SIGNIFICANT AIR LEAK. RESIDUAL AHI ONLY 1.8 VENOUS BG TEST PH 7.39 PCO2 69 HCO3 43 C/W CHRONIC COMPENSATED RESPIRATORY FAILURE. Assessment & Plan Assessment & Plan (1) Obesity (BMI 35.0-39.9 without comorbidity): Comment: HE IS FULLY AWARE OF IT AND IS TRYING TO LOSE WEIGHT SLOWLY. HE HAS SUCCESSFULLY LOST SOME WEIGHT . AND IS MOTIVATED TO KEEP LOOSING . Unfortunately he cannot walk much or do any physical exercise. Code(s): E66.9 - Obesity, unspecified (2) COPD (chronic obstructive pulmonary disease): Comment: COPD IS REMAINING QUITE STABLE WITH THE REGULAR REGIMEN,. NOW THERE HAS BEEN AN ACUTE EXACERBATION DUE TO RECENT ACUTE BRONCHITIS. TX: WIXELA 500-50 1 INHALATION B.I.D.. LEV-ALBUTEROL SOLUTION IN THE NEBULIZER Q 4 HOURS P.R.N. BECAUSE OF HIS FREQUENT, ACUTE EXACERBATIONS DURING THE PAST YEAR, PREDNISONE 5 MG REDUCED TO ALTERNATE DAYS. ZITHROMAX 250 MG ON Saturday AND SATURDAY Code(s): J44.9 - Chronic obstructive pulmonary disease, unspecified Qualifiers: COPD type: COPD with acute exacerbation Qualified Code(s): J44.1 - Chronic obstructive pulmonary disease with (acute) exacerbation (3) Restrictive airway disease: Comment: HE HAS CHRONICALLY ELEVATED LEFT HEMIDIAPHRAGM, THIS CONTRIBUTES TO HIS RESTRICTIVE LUNG DISORDER. ADVISED TO DO DEEP BREATHING EXERCISES WITH INCENTIVE SPIROMETRY 3 TO 4 TIMES A DAY. Code(s): J98.4 - Other disorders of lung (4) Hypoventilation: Comment: HE HAS CHRONIC HYPOVENTILATION , WITH HYPERCAPNIA. VENOUS BLOOD GAS REPEATED, PH =7.39, PCO2 69 HCO3 43 ( C/W CHRONIC COMPENSATED RESPIRATORY FAILURE) I HAVE TRAINED HIM TO DO DEEP BREATHING EXERCISES WITH PURSED LIP BREATHING TECHNIQUE. 10 BREATHS EACH TIME AND REPEATED EVERY FEW HOURS WHILE AWAKE. ALSO STARTED ON DIAMOX 250 MG DAILY Code(s): R06.89 - Other abnormalities of breathing Orders: Orders Venous Blood Gas Today J44.9 - Chronic obstructive pulmonary disease, unspecified, R06.89 - Other abnormalities of breathing Medications: New acetazolamide 250 mg PO DAILY 30 days 30 tabs 4RF RESP. FAILURE Coding Level of Care Code Est Pt Level 3 (50898) Diagnoses Obesity (BMI 35.0-39.9 without comorbidity) E66.9 COPD (chronic obstructive pulmonary disease) J44.1 COPD type: COPD with acute exacerbation Restrictive airway disease J98.4 Hypoventilation R06.89
== END 2022-12-25 14:28 | disposition home or self-care (01) ==
PROVIDERS: PCP Internal Medicine; Visit Provider Internal Medicine
DX: E66.9 Obesity, unspecified (principal); J44.1 Chronic obstructive pulmonary disease with (acute) exacerbation; J98.4 Other disorders of lung; R06.89 Other abnormalities of breathing
CPT/HCPCS: 99213

== ENCOUNTER 2023-01-10 13:32 | Outpatient (AMB) | payer MEDICARE, SELFPAY ==
[2023-01-10 13:54] LABS: Prothrombin Time Whole Bld POC 24.7 sec (11.1-13.5); ~PT, ~INR - Anti Coag Clinic 2.1 (0.9-1.1)
--- NOTE | 2023-01-10 14:01 | MHC.OFFVISCO ---
Intake Intake Visit Reasons: Anticoagulation Allergies albuterol Adverse Reaction (Intermediate, Verified 01/10/23 13:50) Palpitations amoxicillin [From Augmentin] Adverse Reaction (Intermediate, Verified 01/10/23 13:50) Nausea and Vomiting, dizziness clavulanic acid [From Augmentin] Adverse Reaction (Intermediate, Verified 01/10/23 13:50) Nausea and Vomiting, dizziness Medication List - Last Reconciled 01/10/23 by Whitney Clark RN acetaminophen 1,000 mg PO Q6H PRN acetazolamide 250 mg PO DAILY 30 days atorvastatin 20 mg PO DAILY diltiazem HCl 120 mg PO DAILY docusate sodium 200 mg PO DAILY flecainide 50 mg PO BID fluticasone propion-salmeterol 500-50 mcg/dose (Wixela Inhub) 1 inh inhalation BID 90 days furosemide 40 mg PO BID levalbuterol HCl 1.25 mg (0.5 mL) inhalation RQ4H WHILE AWAKE 90 days multivitamin 1 tab PO DAILY potassium chloride ER 10 mEq PO DAILY prednisone 5 mg PO DAILY 30 days sennosides (senna) 25.8 mg PO BEDTIME warfarin 5 mg See Protocol PO SUMOWEFR@1800 warfarin 7.5 mg See Protocol PO TUTHSA@1800 Nursing Note NO CP,SOB,DIET/MED CHANGES,FALLS OR SX OF BLEEDING. CONTINUE PRESENT DOSE AND FOLLOW-UP IN 4 WEEKS. GOOD UNDERSTANDING OF DOSING INSTR. Anti-Coag Initial Assessment Social Hx Patient Tobacco Use Status: Former Tobacco user alcohol intake: current Alcohol intake frequency: a few times a week Coding Level of Care Code Est Patient Level 1 Diagnoses Current use of anticoagulant therapy Z79.01 Assessment & Plan Assessment & Plan (1) Current use of anticoagulant therapy: Code(s): Z79.01 - care home (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
== END 2023-01-10 14:06 | disposition home or self-care (01) ==
LOC: HO.ACS 13:32
PROVIDERS: PCP Internal Medicine; Visit Provider Internal Medicine
DX: Z79.01 Long term (current) use of anticoagulants (principal)

== ENCOUNTER → 2023-01-10 13:32 | Outpatient (BNVA) | payer MEDICARE, SELFPAY | PROVIDERS: PCP Internal Medicine; Visit Provider Internal Medicine | DX: I48.19 Other persistent atrial fibrillation (principal); Z86.718 Personal history of other venous thrombosis and embolism; Z79.01 Long term (current) use of anticoagulants; Z51.81 Encounter for therapeutic drug level monitoring | CPT/HCPCS: 85610; 99211 ==

== ENCOUNTER 2023-02-07 13:19 | Outpatient (AMB) | payer MEDICARE, SELFPAY ==
[2023-02-07 13:36] LABS: Prothrombin Time Whole Bld POC 28.6 sec (11.1-13.5); ~PT, ~INR - Anti Coag Clinic 2.4 (0.9-1.1)
--- NOTE | 2023-02-07 13:43 | MHC.OFFVISCO ---
Intake Intake Visit Reasons: Anticoagulation Allergies albuterol Adverse Reaction (Intermediate, Verified 02/07/23 13:31) Palpitations amoxicillin [From Augmentin] Adverse Reaction (Intermediate, Verified 02/07/23 13:31) Nausea and Vomiting, dizziness clavulanic acid [From Augmentin] Adverse Reaction (Intermediate, Verified 02/07/23 13:31) Nausea and Vomiting, dizziness Medication List - Last Reconciled 02/07/23 by Whitney Clark RN acetaminophen 1,000 mg PO Q6H PRN acetazolamide 250 mg PO DAILY 30 days atorvastatin 20 mg PO DAILY diltiazem HCl 120 mg PO DAILY docusate sodium 200 mg PO DAILY flecainide 50 mg PO BID fluticasone propion-salmeterol 500-50 mcg/dose (Wixela Inhub) 1 inh inhalation BID 90 days furosemide 40 mg PO BID levalbuterol HCl 1.25 mg (0.5 mL) inhalation RQ4H WHILE AWAKE 90 days multivitamin 1 tab PO DAILY potassium chloride ER 10 mEq PO DAILY prednisone 5 mg PO DAILY 30 days sennosides (senna) 25.8 mg PO BEDTIME warfarin 5 mg See Protocol PO SUMOWEFR@1800 warfarin 7.5 mg See Protocol PO TUTHSA@1800 Nursing Note NO CP,SOB,DIET/MED CHANGES,FALLS OR SX OF BLEEDING. CONTINUE PRESENT DOSE AND FOLLOW-UP IN 4 WEEKS. GOOD UNDERSTANDING OF DOSING INSTR. Anti-Coag Initial Assessment Social Hx Patient Tobacco Use Status: Former Tobacco user alcohol intake: current Alcohol intake frequency: a few times a week Coding Level of Care Code Est Patient Level 1 Diagnoses Current use of anticoagulant therapy Z79.01 Assessment & Plan Assessment & Plan (1) Current use of anticoagulant therapy: Code(s): Z79.01 - group home (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
== END 2023-02-07 13:44 | disposition home or self-care (01) ==
LOC: HO.ACS 13:19
PROVIDERS: PCP Internal Medicine; Visit Provider Internal Medicine
DX: Z79.01 Long term (current) use of anticoagulants (principal)

== ENCOUNTER → 2023-02-07 13:19 | Outpatient (BNVA) | payer MEDICARE, SELFPAY | PROVIDERS: PCP Internal Medicine; Visit Provider Internal Medicine | DX: I48.19 Other persistent atrial fibrillation (principal); Z86.718 Personal history of other venous thrombosis and embolism; Z51.81 Encounter for therapeutic drug level monitoring; Z79.01 Long term (current) use of anticoagulants | CPT/HCPCS: 85610; 99211 ==

== ENCOUNTER 2023-03-07 13:03 | Outpatient (AMB) | payer MEDICARE, SELFPAY ==
--- NOTE | 2023-03-07 13:11 | MHC.OFFVISCO ---
Intake Intake Visit Reasons: Anticoagulation Allergies albuterol Adverse Reaction (Intermediate, Verified 03/07/23 13:06) Palpitations amoxicillin [From Augmentin] Adverse Reaction (Intermediate, Verified 03/07/23 13:06) Nausea and Vomiting, dizziness clavulanic acid [From Augmentin] Adverse Reaction (Intermediate, Verified 03/07/23 13:06) Nausea and Vomiting, dizziness Medication List - Last Reconciled 03/07/23 by Kelly aCbrera RN acetaminophen 1,000 mg PO Q6H PRN acetazolamide 250 mg PO DAILY 30 days atorvastatin 20 mg PO DAILY azithromycin 250 mg PO DAILY 6 weeks diltiazem HCl 120 mg PO DAILY docusate sodium 200 mg PO DAILY flecainide 50 mg PO BID fluticasone propion-salmeterol 500-50 mcg/dose (Wixela Inhub) 1 inh inhalation BID 90 days furosemide 40 mg PO BID levalbuterol HCl 1.25 mg (0.5 mL) inhalation RQ4H WHILE AWAKE 90 days multivitamin 1 tab PO DAILY potassium chloride ER 10 mEq PO DAILY prednisone 5 mg PO DAILY 30 days sennosides (senna) 25.8 mg PO BEDTIME warfarin 5 mg See Protocol PO SUMOWEFR@1800 warfarin 7.5 mg See Protocol PO TUTHSA@1800 Nursing Note INR 1.8-?? out of therapeutic range of 2-3 Medications and supplements reviewed Patient status: no c.o Medications or supplements: pt states taking diamox 125mg daily- no interaction with warfarin per micromedex Diet: same Denies any signs and symptoms of bleeding or clotting or unusual bruising Bleeding, bruising, clotting discussed Nutritional guidance given: no greens for 2 days, eat reds to raise Dose: 7.5mg today, then cont reg 5mg x 5, 7.5mg x 2 F/U INR Date : pt away 03/09/23- 03/30/23? Patient verbalizing understanding of instructions given. Anti-Coag Initial Assessment Social Hx Patient Tobacco Use Status: Former Tobacco user alcohol intake: current Alcohol intake frequency: a few times a week Coding Level of Care Code Est Patient Level 1 Diagnoses Current use of anticoagulant therapy Z79.01 Assessment & Plan Assessment & Plan (1) Current use of anticoagulant therapy: Code(s): Z79.01 - snf (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 Medications: New acetazolamide 125 mg PO DAILY
[2023-03-07 13:13] LABS: Prothrombin Time Whole Bld POC 21.7 sec (11.1-13.5); ~PT, ~INR - Anti Coag Clinic 1.8 (0.9-1.1)
== END 2023-03-07 13:21 | disposition home or self-care (01) ==
LOC: HO.ACS 13:03
PROVIDERS: PCP Internal Medicine; Visit Provider Internal Medicine
DX: Z79.01 Long term (current) use of anticoagulants (principal)

== ENCOUNTER → 2023-03-07 13:03 | Outpatient (BNVA) | payer MEDICARE, SELFPAY | PROVIDERS: PCP Internal Medicine; Visit Provider Internal Medicine | DX: I48.19 Other persistent atrial fibrillation (principal); Z86.718 Personal history of other venous thrombosis and embolism; Z51.81 Encounter for therapeutic drug level monitoring; Z79.01 Long term (current) use of anticoagulants | CPT/HCPCS: 85610; 99211 ==

== ENCOUNTER 2023-04-02 11:27 | Outpatient (AMB) | payer MEDICARE, SELFPAY ==
[2023-04-02 11:36] LABS: Prothrombin Time Whole Bld POC 26.1 sec (11.1-13.5); ~PT, ~INR - Anti Coag Clinic 2.2 (0.9-1.1)
--- NOTE | 2023-04-02 11:44 | MHC.OFFVISCO ---
Intake Intake Visit Reasons: Anticoagulation Allergies albuterol Adverse Reaction (Intermediate, Verified 04/02/23 11:29) Palpitations amoxicillin [From Augmentin] Adverse Reaction (Intermediate, Verified 04/02/23 11:29) Nausea and Vomiting, dizziness clavulanic acid [From Augmentin] Adverse Reaction (Intermediate, Verified 04/02/23 11:29) Nausea and Vomiting, dizziness Medication List - Last Reconciled 04/02/23 by Chaya Yarbrough RN acetaminophen 1,000 mg PO Q6H PRN acetazolamide 125 mg PO DAILY acetazolamide 250 mg PO DAILY 30 days atorvastatin 20 mg PO DAILY diltiazem HCl 120 mg PO DAILY docusate sodium 200 mg PO DAILY flecainide 50 mg PO BID fluticasone propion-salmeterol 500-50 mcg/dose (Wixela Inhub) 1 inh inhalation BID 90 days furosemide 40 mg PO BID levalbuterol HCl 1.25 mg (0.5 mL) inhalation RQ4H WHILE AWAKE 90 days multivitamin 1 tab PO DAILY potassium chloride ER 10 mEq PO DAILY prednisone 5 mg PO DAILY 30 days sennosides (senna) 25.8 mg PO BEDTIME warfarin 5 mg See Protocol PO SUMOWEFR@1800 warfarin 7.5 mg See Protocol PO TUTHSA@1800 Nursing Note INR: 2.2 in therapeutic range Medications and supplements reviewed s/p vacation in [facility] he was very sob and put himself on cont O2- to see Pulmonary tomorrow- he's to notify [facility] in 1-2 days of any med changes Denies any signs and symptoms of bleeding or bruising or clotting. Bleeding, bruising, clotting discussed Nutritional guidance given - reveiw food list weekly, eat a mix of fruits and vegetables Dose: keep usual dose 7.5mg x 2 days / 5mg x 5 days F/U INR: 4 weeks or sooner per health or med changes Pt enc to discuss resp/cardio rehab with MD Patient verbalizes understanding of instructions given Anti-Coag Initial Assessment Social Hx Patient Tobacco Use Status: Former Tobacco user alcohol intake: current Alcohol intake frequency: a few times a week Coding Level of Care Code Est Patient Level 1 Diagnoses Current use of anticoagulant therapy Z79.01 Assessment & Plan Assessment & Plan (1) Current use of anticoagulant therapy: Code(s): Z79.01 - snf (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
== END 2023-04-02 11:48 | disposition home or self-care (01) ==
LOC: HO.ACS 11:27
PROVIDERS: PCP Internal Medicine; Visit Provider Internal Medicine
DX: Z79.01 Long term (current) use of anticoagulants (principal)

== ENCOUNTER → 2023-04-02 11:27 | Outpatient (BNVA) | payer MEDICARE, SELFPAY | PROVIDERS: PCP Internal Medicine; Visit Provider Internal Medicine | DX: I48.19 Other persistent atrial fibrillation (principal); Z79.01 Long term (current) use of anticoagulants; Z51.81 Encounter for therapeutic drug level monitoring | CPT/HCPCS: 85610; 99211 ==

== ENCOUNTER 2023-04-03 12:53 | Outpatient (REF) | payer MEDICARE, SELFPAY ==
[2023-04-03 14:47] LABS: Venous Blood Gas Refer to POC result
[2023-04-03 14:56] LABS: VBG Base Excess 5.7 mmol/L; VBG pCO2 60 mmHg; VBG pH 7.34 (7.32-7.43); VBG pO2 30 mmHg
[2023-04-03 14:57] LABS: VBG HCO3 33 mmol/L (22-26)
[2023-04-03 15:49] LABS: Anion Gap 11 (12-20); Carbon Dioxide 31 mmol/L (22-29); Chloride 106 mmol/L (96-108); Estimated Glomerular Filt Rate > 60; Potassium 4.2 mmol/L (3.3-5.1); Sodium 144 mmol/L (135-145)
== END 2023-04-03 12:54 | disposition home or self-care (01) ==
LOC: HO.LAB 12:53
PROVIDERS: PCP Internal Medicine; Visit Provider Internal Medicine
DX: J44.1 Chronic obstructive pulmonary disease with (acute) exacerbation (principal); R06.02 Shortness of breath; R06.89 Other abnormalities of breathing; J98.4 Other disorders of lung; I50.30 Unspecified diastolic (congestive) heart failure
CPT/HCPCS: 36415; 80051; 82565; 82803; 99212

== ENCOUNTER 2023-04-03 12:53 | Outpatient (AMB) | payer MEDICARE, SELFPAY ==
[2023-04-03 13:58] VITALS: BP 112/62; PULSE 74; O2SAT 96; BMI 36.8
--- NOTE | 2023-04-03 13:58 | MHC.OFFVIS ---
Intake Vital Signs 04/03/23 13:58 Height 5 ft 9 in Weight 249 lb BMI 36.8 BP 112/62 Blood Pressure Location Lt brachial Position Sitting Pulse 74 Pulse Source Pulse Oximeter Pulse Oximetry (%) 96 Oxygen Delivery Method Room Air Intake Visit Reasons: Obstructive sleep apnea follow-up Intake Note: pt is here for follow up and states he had an awful time in [place], funky cough, gross edema, got better but than came back. He was away for 3 weeks. has questions on his health and would like to know what is going on. 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 Allergies albuterol Adverse Reaction (Intermediate, Verified 04/03/23 16:48) Palpitations amoxicillin [From Augmentin] Adverse Reaction (Intermediate, Verified 04/03/23 16:48) Nausea and Vomiting, dizziness clavulanic acid [From Augmentin] Adverse Reaction (Intermediate, Verified 04/03/23 16:48) Nausea and Vomiting, dizziness Medication List - Last Reconciled 04/03/23 by Cheli Clarke MD acetaminophen 1,000 mg PO Q6H PRN acetazolamide 250 mg PO DAILY 30 days atorvastatin 20 mg PO DAILY azithromycin 250 mg PO .MWF diltiazem HCl 120 mg PO DAILY docusate sodium 200 mg PO DAILY flecainide 50 mg PO BID fluticasone propion-salmeterol 500-50 mcg/dose (Wixela Inhub) 1 inh inhalation BID 90 days furosemide 40 mg PO BID levalbuterol HCl 1.25 mg (0.5 mL) inhalation RQ4H WHILE AWAKE 90 days multivitamin 1 tab PO DAILY potassium chloride ER 10 mEq PO DAILY prednisone 5 mg PO DAILY 30 days sennosides (senna) 25.8 mg PO BEDTIME warfarin 5 mg See Protocol PO SUMOWEFR@1800 warfarin 7.5 mg See Protocol PO TUTHSA@1800 Do you need a note to return to daycare/school/sports/work: No HPI Obstructive sleep apnea follow-up HPI Details 77 years old gentleman is here for follow-up after 2 months. He was doing okay but during his, visit to how for 3 weeks he had increased shortness of breath along with edema of the legs. This was most likely due to increased CHF AND FLUID RETENTION. HE KEPT ON USING HIS CPAP REGULARLY. On returning back to his home, he is doing better. Breathing is the same as usual shortness of breath. On exertion but not at rest He does use his CPAP regularly every night and sleeps well. The edema of lower extremities has also subsided. [facility] Medical History Hypoventilation Restrictive airway disease (HFpEF) heart failure with preserved ejection fraction CHF exacerbation Cough Paroxysmal atrial fibrillation Lymphedema of both lower extremities DEREK on CPAP Obesity (BMI 35.0-39.9 without comorbidity) COPD (chronic obstructive pulmonary disease) Varicose veins of right lower extremity with inflammation Surgical History History of appendectomy Family History Father No problems noted. Mother No problems noted. Sister No problems noted. Sister No problems noted. Son No problems noted. Daughter No problems noted. Social History Household Members: Spouse Housing: House Do you presently have visiting nurse or other home services: No Alcohol intake: current Alcohol intake frequency: a few times a week Alcohol type: beer Comment: PT USES CALL LIGHT APPROPRIATELY Patient Tobacco Use Status: Former Tobacco user service: Yes Current occupational status: retired Review of Systems Const All systems reviewed & are unremarkable except as noted in HPI and below Eyes Reports no additional complaints ENT Reports nasal congestion (Mild intermittent) Card Denies chest pain, Denies irregular heart rhythm, Reports leg edema and Reports dyspnea on exertion Resp Reports as per HPI and Reports dyspnea on exertion GI Reports no additional complaints Reports no additional complaints Musc Reports no additional complaints Skin/Breast Reports system reviewed and no additional complaints, except as documented Neuro Reports no additional complaints Psych Reports no additional complaints Physical Exam Vital Signs: Last Vital Signs Pulse 74 04/03/23 13:58 BP 112/62 04/03/23 13:58 Pulse Ox 96 04/03/23 13:58 Oxygen Delivery Method Room Air 04/03/23 13:58 BMI result Body Mass Index 36.8 Const General: comfortable, no acute distress, alert and awake Orientation/consciousness: patient oriented x3 HEENT Head: Yes normal to inspection General nose exam: No nasal polyps present and No nasal discharge present Face and sinus: Yes sinuses nontender Mouth: oropharynx abnormals (Narrow and crowded, Mallampati class 3) Throat: Yes posterior oropharynx normal Eyes General: appearance normal, both eyes and all related structures Neck Neck: Yes normal visual inspection, Yes no lymphadenopathy, Yes trachea midline and Yes no JVD Thyroid: Thyroid normal Chest Chest palpation & inspection: normal inspection of the chest, normal palpation of entire chest wall and no tenderness Resp Other: Percussion note resonant, breath sounds are distant on both sides, and decreased especially over the LEFT BASE. Prolonged expiratory phase. There are no wheezes or crepitations. Cardio Palpation: normal PMI Rate: regular rate Rhythm: regular rhythm Heart sounds: no gallops and Murmur heart sound present (A LOUD SYSTOLIC MURMUR ALONG THE LEFT STERNAL BORDER) GI Palpation (GI): Soft to palpation, nontender, No hepatosplenomegaly present, no masses and Other GI palpation findings present (Abdomen is the obese and protuberant) Auscultation: normal bowel sounds Back/Spine/Pelvis Thoracic/Lumbar Spine: thoracic and lumbar spine normal to inspection Skin General skin exam: no rashes or lesions noted Neuro General: patient oriented x3 and no focal motor deficits Cranial nerves: Yes CN's II-XII intact bilaterally Extrem General: Yes normal to inspection, Yes no calf tenderness and Yes venous stasis dermatitis (Both legs, more severe on the right side) Psych Mental Status: mental status grossly normal Speech and movement: Normal speech and movement present Results Reviewed Results Reviewed: Compliance report for the last 30 nights is reviewed. He has used 28/30 nights 93%. Average use per night is 7 hours 43 minutes. There is moderate air leak maximum 87.6 L per minute, patient is not aware of this. Residual AHI 1.8 Assessment & Plan Assessment & Plan (1) COPD (chronic obstructive pulmonary disease): Comment: COPD IS REMAINING QUITE STABLE WITH THE REGULAR REGIMEN,. NOW THERE HAS BEEN AN ACUTE EXACERBATION DUE TO RECENT ACUTE BRONCHITIS. Code(s): J44.9 - Chronic obstructive pulmonary disease, unspecified Qualifiers: COPD type: COPD with acute exacerbation Qualified Code(s): J44.1 - Chronic obstructive pulmonary disease with (acute) exacerbation Plan: [place]: WIXELA 500-50 1 INHALATION B.I.D.. LEV-ALBUTEROL SOLUTION IN THE NEBULIZER Q 4 HOURS P.R.N. PREDNISONE 5 MG REDUCED TO ALTERNATE DAYS. ZITHROMAX 250 MG ON Saturday AND SATURDAY (2) SOB (shortness of breath) on exertion: Comment: SHORTNESS OF BREATH ON EXERTION IS SECONDARY TO COPD, MODERATE OBESITY, AND HIS ASSOCIATED HEART CONDITION. ENCOURAGED TO DO EXERCISE ON A DAILY BASIS . Code(s): R06.02 - Shortness of breath Plan: explained to pt. and his (3) Hypoventilation: Comment: HE HAS CHRONIC HYPOVENTILATION , WITH HYPERCAPNIA. VENOUS BLOOD GAS REPEATED, PH =7.34, PCO2 60 HCO3 33 ( C/W CHRONIC COMPENSATED RESPIRATORY FAILURE) improved from last visit Code(s): R06.89 - Other abnormalities of breathing Plan: AGAINED TRAINED TO DO DEEP BREATHING EXERCISES WITH PURSED LIP BREATHING TECHNIQUE. 10 BREATHS EACH TIME AND REPEATED EVERY FEW HOURS WHILE AWAKE. ALSO STARTED CONTINUE DIAMOX 250 MG DAILY (4) Restrictive airway disease: Comment: HE HAS CHRONICALLY ELEVATED LEFT HEMIDIAPHRAGM, THIS CONTRIBUTES TO HIS RESTRICTIVE LUNG DISORDER. ADVISED TO DO DEEP BREATHING EXERCISES WITH INCENTIVE SPIROMETRY 3 TO 4 TIMES A DAY. Code(s): J98.4 - Other disorders of lung Plan: ABOVE (5) (HFpEF) heart failure with preserved ejection fraction: Comment: PATIENT ALSO HAS PAROXYSMAL ATRIAL FIBRILLATION AND, CONGESTIVE HEART FAILURE, CONTRIBUTING TO HIS INCREASED SHORTNESS OF BREATH. *ELECTROLYTES BUN CREATININE ARE WITH AN NORMAL RANGE TODAY Code(s): I50.30 - Unspecified diastolic (congestive) heart failure Plan: CONTINUE REGULAR FOLLOW-UP WITH CARDIOLOGY. Orders: Orders Electrolytes Today I50.30 - Unspecified diastolic (congestive) heart failure, R06.89 - Other abnormalities of breathing Creatinine Today I50.30 - Unspecified diastolic (congestive) heart failure, R06.89 - Other abnormalities of breathing Venous Blood Gas Today I50.30 - Unspecified diastolic (congestive) heart failure, R06.89 - Other abnormalities of breathing Coding Level of Care Code Est Pt Level 4 (64802) Diagnoses COPD (chronic obstructive pulmonary disease) J44.1 COPD type: COPD with acute exacerbation SOB (shortness of breath) on exertion R06.02 Hypoventilation R06.89 Restrictive airway disease J98.4 (HFpEF) heart failure with preserved ejection fraction I50.30
== END 2023-04-03 14:29 | disposition home or self-care (01) ==
PROVIDERS: PCP Internal Medicine; Visit Provider Internal Medicine
DX: J44.1 Chronic obstructive pulmonary disease with (acute) exacerbation (principal); R06.02 Shortness of breath; R06.89 Other abnormalities of breathing; J98.4 Other disorders of lung; I50.30 Unspecified diastolic (congestive) heart failure
CPT/HCPCS: 99214

== ENCOUNTER 2023-04-11 13:03 | Outpatient (AMB) | payer MEDICARE, SELFPAY ==
[2023-04-11 13:05] VITALS: BP 124/72; PULSE 81; BMI 36.7
--- NOTE | 2023-04-11 13:05 | MHC.OFFVIS ---
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 Present Allergies albuterol Adverse Reaction (Intermediate, Verified 04/11/23 13:09) Palpitations amoxicillin [From Augmentin] Adverse Reaction (Intermediate, Verified 04/11/23 13:09) Nausea and Vomiting, dizziness clavulanic acid [From Augmentin] Adverse Reaction (Intermediate, Verified 04/11/23 13:09) Nausea and Vomiting, dizziness Medication List - Last Reconciled 04/11/23 by BRENDA Reynoso acetaminophen 1,000 mg PO Q6H PRN acetazolamide 250 mg PO DAILY 30 days atorvastatin 20 mg PO DAILY azithromycin 250 mg PO .MWF diltiazem HCl 120 mg PO DAILY docusate sodium 200 mg PO DAILY flecainide 50 mg PO BID fluticasone propion-salmeterol 500-50 mcg/dose (Wixela Inhub) 1 inh inhalation BID 90 days furosemide 40 mg PO BID levalbuterol HCl 1.25 mg (0.5 mL) inhalation RQ4H WHILE AWAKE 90 days multivitamin 1 tab PO DAILY potassium chloride ER 10 mEq PO DAILY prednisone 5 mg PO DAILY 30 days sennosides (senna) 25.8 mg PO BEDTIME warfarin 5 mg See Protocol PO SUMOWEFR@1800 warfarin 7.5 mg See Protocol PO TUTHSA@1800 HPI Congestive heart failure HPI Details Jay is a 77-year-old male with past medical history of COPD, obstructive sleep apnea with CPAP use, paroxysmal atrial fibrillation which is currently suppressed, heart failure with preserved EF who presents for follow-up. Today he reports that he spent 3 weeks in [place] and had significant issues with shortness of breath. is present and describes that within 3 days of being there he had increasing shortness of breath, leg edema and needed to wear oxygen. She cut back his salt completely and gave him extra Lasix. He was also doing updraft treatments every 4-6 hours. She states during their 3 week trip he also had 2 other exacerbations however not as bad as the initial 1. He did not need to seek emergency medical care. They were able to do only limited things on their vacation. The states that had a similar reaction when going to [place] 2 years ago. They returned home on 03/30/2023 and his breathing has been fine since that time. He states his breathing is completely back to normal. He has only taken to updraft treatments since being home which is more his normal. He has not required any supplemental oxygen at home. He did see Dr. Clarke was reported as being pleased with how he was doing. He has not had any chest discomfort at rest or with activity. No heart palpitations, lightheadedness, presyncope, syncope, PND. He does have chronic edema in his right lower extremity and tells me his legs look like his normal. He has been taking all meds as directed. [facility] Medical History Hypoventilation Restrictive airway disease (HFpEF) heart failure with preserved ejection fraction CHF exacerbation Cough Paroxysmal atrial fibrillation Lymphedema of both lower extremities DEREK on CPAP Obesity (BMI 35.0-39.9 without comorbidity) COPD (chronic obstructive pulmonary disease) Varicose veins of right lower extremity with inflammation Surgical History History of appendectomy Family History Father No problems noted. Mother No problems noted. Sister No problems noted. Sister No problems noted. Son No problems noted. Daughter No problems noted. Social History Household Members: Spouse Housing: House Do you presently have visiting nurse or other home services: No Alcohol intake: current Alcohol intake frequency: a few times a week Alcohol type: beer Comment: PT USES CALL LIGHT APPROPRIATELY Patient Tobacco Use Status: Former Tobacco user service: Yes Current occupational status: retired Review of Systems Const All systems reviewed & are unremarkable except as noted in HPI and below ENT Denies dizziness Card Denies chest pain, Denies chest pain at rest, Denies chest pain with activity, Denies rapid heart rate, Denies pedal edema, Denies edema, Reports leg edema, Denies lightheadedness, Denies palpitations, Reports dyspnea, Denies dyspnea on exertion and Denies orthopnea Resp Denies cough, Reports dyspnea and Denies dyspnea on exertion GI Denies hematochezia and Denies change in stool character Musc Denies abnormal gait, Denies limited range of motion, Denies muscle cramps, Denies muscle weakness, Denies numbness, Denies radiating pain into limb, Denies stiffness and Denies tingling Neuro Denies abnormal gait, Denies dizziness, Denies numbness and Denies tingling Endo Denies palpitations Physical Exam Vital Signs: Last Vital Signs Pulse 81 04/11/23 13:05 BP 124/72 04/11/23 13:05 BMI result Body Mass Index 36.7 Const General: cooperative, healthy appearing, comfortable and no acute distress Orientation/consciousness: patient oriented x3 Neck Neck: Yes normal visual inspection Resp Effort & Inspection: normal respiratory effort Auscultation: clear to auscultation bilaterally, no crackles, no rales, no rhonchi and no wheezes Cardio Jugular venous distension: no JVD Rate: regular rate Rhythm: regular rhythm Heart sounds: S1 normal heart sound present, S2 normal heart sound present, Murmur heart sound present (3/6 holo systolic murmur, left sternal border) and no rubs Neuro General: patient oriented x3 Extrem Other: pitting edema right lower leg with venous stasis changes. Trace edema around left ankle. Psych Appearance: grossly normal Mental Status: mental status grossly normal Speech and movement: Normal speech and movement present Office Procedures EKG Details: Today, read by me, normal sinus rhythm, right bundle branch block, can not exclude prior inferior infarct, overall visually no significant change from prior, rate 81, QTC 473 milliseconds [id number], Complete Assessment & Plan Assessment & Plan (1) (HFpEF) heart failure with preserved ejection fraction: Comment: PATIENT ALSO HAS PAROXYSMAL ATRIAL FIBRILLATION AND, CONGESTIVE HEART FAILURE, CONTRIBUTING TO HIS INCREASED SHORTNESS OF BREATH. *ELECTROLYTES BUN CREATININE ARE WITH AN NORMAL RANGE TODAY Code(s): I50.30 - Unspecified diastolic (congestive) heart failure Plan: History of heart failure with preserved EF. Last echocardiogram done 06/04/2022 showing EF 62%, mild increase in the RV size, possible biatrial dilation, no significant valve abnormalities. EKG done today shows sinus rhythm with right bundle branch block, unchanged from prior EKG, rate 81. On examination he does not appear fluid overloaded. He has chronic edema in his right lower extremity from prior DVT and venous stasis. He is reporting that his breathing is back to normal following exacerbation while in [place]. His states that he had a similar reaction when he was in [place] approximately 2 years ago. He ended up with pneumonia at that time. Based on her description of his condition and symptoms it does seem like it was a combination of COPD exacerbation and heart failure in the setting of weather changes and recent flying. His condition was stabilized with salt reduction, fluid restriction, extra Lasix dose, supplemental O2 and updraft treatments. Now that he is home his breathing has normalized. He has an echocardiogram planned for 06/12/2023 with follow-up visit with Dr. Nava. He wishes to keep this appointment. I will continue on current med management. Signs and symptoms of heart failure reviewed with them in detail. (2) Acute on chronic respiratory failure with hypoxemia: Code(s): J96.21 - Acute and chronic respiratory failure with hypoxia Plan: As above, while in [place], now resolved. No longer requiring oxygen supplement (3) Paroxysmal atrial fibrillation: Comment: PAROXYSMAL ATRIAL FIBRILLATION BEING CONTROLLED WITH DILTIAZEM WELL FLECAINIDE Code(s): I48.0 - Paroxysmal atrial fibrillation Plan: History of paroxysmal atrial fibrillation. EKG done today showing sinus rhythm. He continues on diltiazem and flecainide for rate and rhythm control. He is on Coumadin for anticoagulation. No bleeding issues reported. Follows with the anticoagulation clinic at [facility]. INR goal 2-3. No med changes made. (4) Current use of anticoagulant therapy: Code(s): Z79.01 - intermediate (current) use of anticoagulants Plan: As above (5) Murmur: Code(s): R01.1 - Cardiac murmur, unspecified Plan: Heart murmur noted on examination. / systolic murmur left sternal border. Noted by Dr. Nava on last visit as well. Echocardiogram reviewed and no clear reason for murmur however it was a technically difficult study. Has a repeat echocardiogram due 06/12/2023 (6) COPD (chronic obstructive pulmonary disease): Comment: COPD IS REMAINING QUITE STABLE WITH THE REGULAR REGIMEN,. NOW THERE HAS BEEN AN ACUTE EXACERBATION DUE TO RECENT ACUTE BRONCHITIS. Code(s): J44.9 - Chronic obstructive pulmonary disease, unspecified Qualifiers: COPD type: COPD with acute exacerbation Qualified Code(s): J44.1 - Chronic obstructive pulmonary disease with (acute) exacerbation Plan: As above. Follows with Dr. Clarke (7) Obesity (BMI 35.0-39.9 without comorbidity): Comment: HE IS FULLY AWARE OF IT AND IS TRYING TO LOSE WEIGHT SLOWLY. HE HAS SUCCESSFULLY LOST SOME WEIGHT . AND IS MOTIVATED TO KEEP LOOSING . Unfortunately he cannot walk much or do any physical exercise. Code(s): E66.9 - Obesity, unspecified Plan: He is working on weight loss. He tells me he is down 15 lb recently. Plan Time spent on chart review, documentation, interview and assessment Coding Level of Care Code Est Pt Level 4 (62625) Diagnoses (HFpEF) heart failure with preserved ejection fraction I50.30 Acute on chronic respiratory failure with hypoxemia J96.21 Paroxysmal atrial fibrillation I48.0 Current use of anticoagulant therapy Z79.01 Murmur R01.1 COPD (chronic obstructive pulmonary disease) J44.1 COPD type: COPD with acute exacerbation Obesity (BMI 35.0-39.9 without comorbidity) E66.9 CPT Codes EKG - CPT: 07762-[id number], Complete ([id number]) Time Spent (min) 30
== END 2023-04-11 14:12 | disposition home or self-care (01) ==
PROVIDERS: PCP Internal Medicine; Visit Provider Nurse Practitioner Family
DX: I50.30 Unspecified diastolic (congestive) heart failure (principal); J96.21 Acute and chronic respiratory failure with hypoxia; I48.0 Paroxysmal atrial fibrillation; Z79.01 Long term (current) use of anticoagulants; R01.1 Cardiac murmur, unspecified; J44.1 Chronic obstructive pulmonary disease with (acute) exacerbation; E66.9 Obesity, unspecified
CPT/HCPCS: 93010; 99214

== ENCOUNTER → 2023-04-11 13:03 | Outpatient (BNVA) | payer MEDICARE, SELFPAY | PROVIDERS: PCP Internal Medicine; Visit Provider Nurse Practitioner Family | DX: I50.30 Unspecified diastolic (congestive) heart failure (principal); I48.0 Paroxysmal atrial fibrillation; J96.21 Acute and chronic respiratory failure with hypoxia; J44.1 Chronic obstructive pulmonary disease with (acute) exacerbation; R01.1 Cardiac murmur, unspecified; E66.9 Obesity, unspecified; Z79.01 Long term (current) use of anticoagulants; Z68.36 Body mass index [BMI] 36.0-36.9, adult | CPT/HCPCS: 93005; 99212 ==

== ENCOUNTER 2023-04-30 12:57 | Outpatient (AMB) | payer MEDICARE, SELFPAY ==
--- NOTE | 2023-04-30 13:10 | MHC.OFFVISCO ---
Intake Intake Visit Reasons: Anticoagulation Allergies albuterol Adverse Reaction (Intermediate, Verified 04/30/23 13:07) Palpitations amoxicillin [From Augmentin] Adverse Reaction (Intermediate, Verified 04/30/23 13:07) Nausea and Vomiting, dizziness clavulanic acid [From Augmentin] Adverse Reaction (Intermediate, Verified 04/30/23 13:07) Nausea and Vomiting, dizziness Medication List - Last Reconciled 04/30/23 by Kelly Cabrera RN acetaminophen 1,000 mg PO Q6H PRN acetazolamide 250 mg PO DAILY 30 days atorvastatin 20 mg PO DAILY azithromycin 250 mg PO .MWF diltiazem HCl 120 mg PO DAILY docusate sodium 200 mg PO DAILY flecainide 50 mg PO BID fluticasone propion-salmeterol 500-50 mcg/dose (Wixela Inhub) 1 inh inhalation BID 90 days furosemide 40 mg PO BID levalbuterol HCl 1.25 mg (0.5 mL) inhalation RQ4H WHILE AWAKE 90 days multivitamin 1 tab PO DAILY potassium chloride ER 10 mEq PO DAILY prednisone 5 mg PO DAILY 30 days sennosides (senna) 25.8 mg PO BEDTIME warfarin 5 mg See Protocol PO SUMOWEFR@1800 warfarin 7.5 mg See Protocol PO TUTHSA@1800 Nursing Note INR 1.9-?? out of therapeutic rangeof 2-3 Medications and supplements reviewed Patient status: no c.o- pt states eating to lose weight, has lost 18 lbs Medications or supplements: no changes in medications Diet: appetite good Denies any signs and symptoms of bleeding or clotting or unusual bruising Bleeding, bruising, clotting discussed Nutritional guidance given: no greens for 2 days, eat a red today Dose: 7.5mg today and tomm, then cont reg 7.5mg x 2, 5mg x 5 F/U INR Date : 2 weeks? Patient verbalizing understanding of instructions given. Anti-Coag Initial Assessment Social Hx Patient Tobacco Use Status: Former Tobacco user alcohol intake: current Alcohol intake frequency: a few times a week Questionnaires HAS-BLED Does the patient had uncontrolled Hypertension?: No Does the patient have renal disease?: No Does the patient have liver disease?: No Does the patient have a history of stroke?: No Has the patient had major bleeding or predisposition to bleeding?: No Does the patient have labile INRs?: No Is the patient over 65 years of age?: Yes Is the patient on medications that gives them a predisposition to bleeding?: Yes Does the patient use alcohol?: Yes HAS-BLED Score: 3 CHADSVASC Age: 75 or over Gender: Male Does the patient have a history of CHF?: Yes Does the patient have a history of Hypertension?: Yes Does the patient have a history of Stroke/TIA/Thromboembolism?: Yes Does the patient have a history of Vascular Disease (prior WI, PAD or aortic plaque)?: Yes Does the patient have a history of Diabetes?: No CHADS VACS Score: 7 Maya Prediction Score Rsk VTE Active Cancer: No Previous VTE, excluding superficial vein thrombosis: Yes Reduced mobility: Yes Already known Thrombophilic Condition: No With-in last month Trauma and/or Surgery: No Elderly 70 year or older: Yes Heart and/or Respiratory Failure: Yes Acute Myocardial infarction and/or Ischemic Stroke: No Acute Infection and/or Rheumatologic Disorder: No Obesity (BMI 30 or greater): Yes Ongoing Hormonal Treatment: No Score: 9 Maya Score less than 4; Low Risk of VTE Maya Score 4 or greater; High Risk of VTE Coding Level of Care Code Est Patient Level 1 Diagnoses Current use of anticoagulant therapy Z79.01 Assessment & Plan Assessment & Plan (1) Current use of anticoagulant therapy: Code(s): Z79.01 - halfway (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
[2023-04-30 13:12] LABS: ~PT, ~INR - Anti Coag Clinic 1.9 (0.9-1.1)
== END 2023-04-30 13:55 | disposition home or self-care (01) ==
LOC: HO.ACS 12:57
PROVIDERS: PCP Internal Medicine; Visit Provider Internal Medicine
DX: Z79.01 Long term (current) use of anticoagulants (principal)

== ENCOUNTER → 2023-04-30 12:57 | Outpatient (BNVA) | payer MEDICARE, SELFPAY | PROVIDERS: PCP Internal Medicine; Visit Provider Internal Medicine | DX: I48.19 Other persistent atrial fibrillation (principal); Z86.718 Personal history of other venous thrombosis and embolism; Z79.01 Long term (current) use of anticoagulants; Z51.81 Encounter for therapeutic drug level monitoring | CPT/HCPCS: 85610; 99211 ==

== ENCOUNTER 2023-05-14 13:19 | Outpatient (AMB) | payer MEDICARE, SELFPAY ==
--- NOTE | 2023-05-14 13:27 | MHC.OFFVISCO ---
Intake Intake Visit Reasons: Anticoagulation Allergies albuterol Adverse Reaction (Intermediate, Verified 05/14/23 13:21) Palpitations amoxicillin [From Augmentin] Adverse Reaction (Intermediate, Verified 05/14/23 13:21) Nausea and Vomiting, dizziness clavulanic acid [From Augmentin] Adverse Reaction (Intermediate, Verified 05/14/23 13:21) Nausea and Vomiting, dizziness Medication List - Last Reconciled 05/14/23 by Kelly Cabrera RN acetaminophen 1,000 mg PO Q6H PRN acetazolamide 250 mg PO DAILY 30 days atorvastatin 20 mg PO DAILY azithromycin 250 mg PO .MWF diltiazem HCl 120 mg PO DAILY docusate sodium 200 mg PO DAILY flecainide 50 mg PO BID fluticasone propion-salmeterol 500-50 mcg/dose (Wixela Inhub) 1 inh inhalation BID 90 days furosemide 40 mg PO BID levalbuterol HCl 1.25 mg (0.5 mL) inhalation RQ4H WHILE AWAKE 90 days multivitamin 1 tab PO DAILY potassium chloride ER 10 mEq PO DAILY prednisone 5 mg PO DAILY 30 days sennosides (senna) 25.8 mg PO BEDTIME warfarin 5 mg See Protocol PO SUMOWEFR@1800 warfarin 7.5 mg See Protocol PO TUTHSA@1800 Nursing Note INR 1.8-?? out of therapeutic range of 2-3 pt denies missed dose Medications and supplements reviewed Patient status: no c.o Medications or supplements: no changes, states takes prednisone 5mg 4 x week Diet: good, denies increased greens Denies any signs and symptoms of bleeding or clotting or unusual bruising Bleeding, bruising, clotting discussed Nutritional guidance given: no greens for 2 days, eat reds to raise Dose: 7.5mg today and tomm then increase weekly dosing - 7.5mg x 3, 5mg x 4 F/U INR Date : 2 weeks Patient verbalizing understanding of instructions given. 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
[2023-05-14 13:28] LABS: Prothrombin Time Whole Bld POC 21.7 sec (11.1-13.5); ~PT, ~INR - Anti Coag Clinic 1.8 (0.9-1.1)
== END 2023-05-14 13:33 | disposition home or self-care (01) ==
LOC: HO.ACS 13:19
PROVIDERS: PCP Internal Medicine; Visit Provider Internal Medicine
DX: Z79.01 Long term (current) use of anticoagulants (principal)

== ENCOUNTER → 2023-05-14 13:19 | Outpatient (BNVA) | payer MEDICARE, SELFPAY | PROVIDERS: PCP Internal Medicine; Visit Provider Internal Medicine | DX: I48.19 Other persistent atrial fibrillation (principal); Z86.718 Personal history of other venous thrombosis and embolism; Z51.81 Encounter for therapeutic drug level monitoring; Z79.01 Long term (current) use of anticoagulants | CPT/HCPCS: 85610; 99211 ==

== ENCOUNTER 2023-05-28 13:17 | Outpatient (AMB) | payer MEDICARE, SELFPAY ==
[2023-05-28 13:32] LABS: Prothrombin Time Whole Bld POC 23.7 sec (11.1-13.5)
--- NOTE | 2023-05-28 13:36 | MHC.OFFVISCO ---
Intake Intake Visit Reasons: Anticoagulation Allergies albuterol Adverse Reaction (Intermediate, Verified 05/28/23 13:21) Palpitations amoxicillin [From Augmentin] Adverse Reaction (Intermediate, Verified 05/28/23 13:21) Nausea and Vomiting, dizziness clavulanic acid [From Augmentin] Adverse Reaction (Intermediate, Verified 05/28/23 13:21) Nausea and Vomiting, dizziness Medication List - Last Reconciled 05/28/23 by Lottie Ardon RN acetaminophen 1,000 mg PO Q6H PRN acetazolamide 250 mg PO DAILY 30 days atorvastatin 20 mg PO DAILY azithromycin 250 mg PO .MWF diltiazem HCl CD 120 mg PO DAILY docusate sodium 200 mg PO DAILY flecainide 50 mg PO BID fluticasone propion-salmeterol 500-50 mcg/dose (Wixela Inhub) 1 inh inhalation BID 90 days furosemide 40 mg PO BID levalbuterol HCl 1.25 mg (0.5 mL) inhalation RQ4H WHILE AWAKE 90 days multivitamin 1 tab PO DAILY potassium chloride ER 10 mEq PO DAILY prednisone 5 mg PO 4XW 30 days sennosides (senna) 25.8 mg PO BEDTIME warfarin 5 mg See Protocol PO SUMOWEFR@1800 warfarin 7.5 mg See Protocol PO TUTHSA@1800 Nursing Note Amb to [facility] feeling well Medications and supplements reviewed, pt had dosing increase last visit due to below range INRs x a couple visits pt has been on extra prednisone this week for lungs, taper and doxycycline 100mg BID for 7 days, LD 05/29 No other changes in health, diet, medications, or supplements Denies any unusual signs and symptoms of bruising, bleeding Denies any new Chest pain, SOB, or clotting INR: 2.0 in therapeutic range Nutritional guidance given: start good greens in anticipation of delayed rise from Doxycycline, continue over the weekend Dose: continue usual dosing; 7.5mg x 3 days and 5mg x 4 days F/U INR: 1 week Patient verbalizes understanding of instructions given with accurate read back/ teach back of dosing Anti-Coag Initial Assessment Social Hx Patient Tobacco Use Status: Former Tobacco user alcohol intake: current Alcohol intake frequency: a few times a week Questionnaires HAS-BLED Does the patient had uncontrolled Hypertension?: No Does the patient have renal disease?: No Does the patient have liver disease?: No Does the patient have a history of stroke?: No Has the patient had major bleeding or predisposition to bleeding?: No Does the patient have labile INRs?: Yes Is the patient over 65 years of age?: Yes Is the patient on medications that gives them a predisposition to bleeding?: Yes Does the patient use alcohol?: Yes HAS-BLED Score: 4 CHADSVASC Age: 75 or over Gender: Male Does the patient have a history of CHF?: Yes Does the patient have a history of Hypertension?: Yes Does the patient have a history of Stroke/TIA/Thromboembolism?: Yes Does the patient have a history of Vascular Disease (prior CT, PAD or aortic plaque)?: No Does the patient have a history of Diabetes?: No CHADS VACS Score: 6 Maya Prediction Score Rsk VTE Active Cancer: No Previous VTE, excluding superficial vein thrombosis: Yes Reduced mobility: No Already known Thrombophilic Condition: Yes With-in last month Trauma and/or Surgery: No Elderly 70 year or older: Yes Heart and/or Respiratory Failure: Yes Acute Myocardial infarction and/or Ischemic Stroke: No Acute Infection and/or Rheumatologic Disorder: No Obesity (BMI 30 or greater): Yes Ongoing Hormonal Treatment: No Score: 9 Maya Score less than 4; Low Risk of VTE Maya Score 4 or greater; High Risk of VTE Coding Level of Care Code Est Patient Level 1 Diagnoses Current use of anticoagulant therapy Z79.01 Time Spent (min) 15 Assessment & Plan Assessment & Plan (1) Current use of anticoagulant therapy: Code(s): 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
== END 2023-05-28 13:58 | disposition home or self-care (01) ==
LOC: HO.ACS 13:17
PROVIDERS: PCP Internal Medicine; Visit Provider Internal Medicine
DX: Z79.01 Long term (current) use of anticoagulants (principal)

== ENCOUNTER → 2023-05-28 13:17 | Outpatient (BNVA) | payer MEDICARE, SELFPAY | PROVIDERS: PCP Internal Medicine; Visit Provider Internal Medicine | DX: I48.19 Other persistent atrial fibrillation (principal); I82.402 Acute embolism and thrombosis of unspecified deep veins of left lower extremity; Z79.01 Long term (current) use of anticoagulants; Z51.81 Encounter for therapeutic drug level monitoring | CPT/HCPCS: 85610; 99211 ==

== ENCOUNTER 2023-06-04 13:31 | Outpatient (AMB) | payer MEDICARE, SELFPAY ==
[2023-06-04 13:42] LABS: Prothrombin Time Whole Bld POC 25.4 sec (11.1-13.5); ~PT, ~INR - Anti Coag Clinic 2.1 (0.9-1.1)
--- NOTE | 2023-06-04 13:55 | MHC.OFFVISCO ---
Intake Intake Visit Reasons: Anticoagulation Allergies albuterol Adverse Reaction (Intermediate, Verified 06/04/23 13:36) Palpitations amoxicillin [From Augmentin] Adverse Reaction (Intermediate, Verified 06/04/23 13:36) Nausea and Vomiting, dizziness clavulanic acid [From Augmentin] Adverse Reaction (Intermediate, Verified 06/04/23 13:36) Nausea and Vomiting, dizziness Nursing Note INR: 2.1 in therapeutic range of 2-3 Medications and supplements reviewed: NO CHANGES No changes in health, diet, medications, or supplements, Denies any signs and symptoms of bleeding or bruising or clotting. Bleeding, bruising, clotting discussed Nutritional guidance given TO REVIEW FOOD LIST Dose: 7.5MG x 3 DAYS AND 4 MG x 4 DAYS F/U INR: 2 WEEKS Patient verbalizes understanding of instructions given Anti-Coag Initial Assessment Social Hx Patient Tobacco Use Status: Former Tobacco user alcohol intake: current Alcohol intake frequency: a few times a week Coding Level of Care Code Est Patient Level 1 Diagnoses Current use of anticoagulant therapy Z79.01 Assessment & Plan Assessment & Plan (1) Current use of anticoagulant therapy: Code(s): Z79.01 - [facility] (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
== END 2023-06-04 13:58 | disposition home or self-care (01) ==
LOC: HO.ACS 13:32
PROVIDERS: PCP Internal Medicine; Visit Provider Internal Medicine
DX: Z79.01 Long term (current) use of anticoagulants (principal)

== ENCOUNTER → 2023-06-04 13:31 | Outpatient (BNVA) | payer MEDICARE, SELFPAY | PROVIDERS: PCP Internal Medicine; Visit Provider Internal Medicine | DX: I48.19 Other persistent atrial fibrillation (principal); Z51.81 Encounter for therapeutic drug level monitoring; Z79.01 Long term (current) use of anticoagulants; Z86.718 Personal history of other venous thrombosis and embolism | CPT/HCPCS: 85610; 99211 ==

== ENCOUNTER 2023-06-06 13:50 | Outpatient (AMB) | payer MEDICARE, SELFPAY ==
[2023-06-06 14:00] VITALS: BP 130/68; PULSE 82; O2SAT 95; BMI 35.8
--- NOTE | 2023-06-06 14:00 | A.OFFVIS_ITS ---
Vital Signs 06/06/23 14:00 Height 5 ft 9 in Weight 242 lb 8.136 oz BMI 35.8 BP 130/68 Blood Pressure Location Lt brachial Position Sitting Pulse 82 Pulse Source Pulse Oximeter Pulse Oximetry (%) 95 Oxygen Delivery Method Room Air Intake Visit Reasons: Obstructive sleep apnea Intake Note: pt needs refill on azithmycin to [facility] for a 90 day supply and 3 refills, pt states he is feeling okay, using cpap. Supervisor Type Disk Quality Control Required: No Allergies albuterol Adverse Reaction (Intermediate, Verified 06/06/23 14:15) Palpitations amoxicillin [From Augmentin] Adverse Reaction (Intermediate, Verified 06/06/23 14:15) Nausea and Vomiting, dizziness clavulanic acid [From Augmentin] Adverse Reaction (Intermediate, Verified 06/06/23 14:15) Nausea and Vomiting, dizziness Medication List - Last Reconciled 06/06/23 by Cheli Clarke MD acetaminophen 1,000 mg PO Q6H PRN acetazolamide 250 mg PO DAILY 30 days atorvastatin 20 mg PO DAILY azithromycin 250 mg PO .MWF diltiazem HCl CD 120 mg PO DAILY docusate sodium 200 mg PO DAILY flecainide 50 mg PO BID fluticasone propion-salmeterol 500-50 mcg/dose (Wixela Inhub) 1 inh inhalation BID 90 days furosemide 40 mg PO BID levalbuterol HCl 1.25 mg (0.5 mL) inhalation RQ4H WHILE AWAKE 90 days multivitamin 1 tab PO DAILY potassium chloride ER 10 mEq PO DAILY prednisone 5 mg PO 4XW 30 days sennosides (senna) 25.8 mg PO BEDTIME warfarin 5 mg See Protocol PO SUMOWEFR@1800 warfarin 7.5 mg See Protocol PO TUTHSA@1800 Do you need a note to return to daycare/school/sports/work: No HPI HPI Obstructive sleep apnea: Details: Jay comes after 2 months for follow-up. Breathing avendaño has remained very stable. Congestive heart failure seems to be under control. Uses CPAP at night regularly, except for 2 nights in 1 month, Sleeps about 4-5 hours per night , because of his delayed pattern of sleeping. During the daytime remains fairly comfortable and has not required to use oxygen. [facility] Medical History Hypoventilation Restrictive airway disease (HFpEF) heart failure with preserved ejection fraction CHF exacerbation Cough Paroxysmal atrial fibrillation Lymphedema of both lower extremities DEREK on CPAP Obesity (BMI 35.0-39.9 without comorbidity) COPD (chronic obstructive pulmonary disease) Varicose veins of right lower extremity with inflammation Surgical History History of appendectomy Family History Father No problems noted. Mother No problems noted. Sister No problems noted. Sister No problems noted. Son No problems noted. Daughter No problems noted. Social History Household Members: Spouse Housing: House Do you presently have visiting nurse or other home services: No Alcohol intake: current Alcohol intake frequency: a few times a week Alcohol type: beer Comment: PT USES CALL LIGHT APPROPRIATELY Patient Tobacco Use Status: Former Tobacco user service: Yes Current occupational status: retired Review of Systems Const All systems reviewed & are unremarkable except as noted in HPI and below Eyes Reports no additional complaints ENT Reports nasal congestion (Mild intermittent) Card Denies chest pain, Denies irregular heart rhythm, Reports leg edema and Reports dyspnea on exertion Resp Reports as per HPI and Reports dyspnea on exertion GI Reports no additional complaints Reports no additional complaints Musc Reports no additional complaints Skin/Breast Reports system reviewed and no additional complaints, except as documented Neuro Reports no additional complaints Psych Reports no additional complaints Physical Exam Vital Signs: Last Vital Signs Pulse 82 06/06/23 14:00 BP 130/68 06/06/23 14:00 Pulse Ox 95 06/06/23 14:00 Oxygen Delivery Method Room Air 06/06/23 14:00 BMI result Body Mass Index 35.8 Const General: comfortable, no acute distress, alert and awake Orientation/consciousness: patient oriented x3 HEENT Head: Yes normal to inspection General nose exam: No nasal polyps present and No nasal discharge present Face and sinus: Yes sinuses nontender Mouth: oropharynx abnormals (Narrow and crowded, Mallampati class 3) Throat: Yes posterior oropharynx normal Eyes General: appearance normal, both eyes and all related structures Neck Neck: Yes normal visual inspection, Yes no lymphadenopathy, Yes trachea midline and Yes no JVD Thyroid: Thyroid normal Chest Chest palpation & inspection: normal inspection of the chest, normal palpation of entire chest wall and no tenderness Resp Other: Percussion note resonant, breath sounds are distant on both sides, and decreased especially over the LEFT BASE. Prolonged expiratory phase. There are no wheezes or crepitations. Cardio Palpation: normal PMI Rate: regular rate Rhythm: regular rhythm Heart sounds: no gallops and Murmur heart sound present (A LOUD SYSTOLIC MURMUR ALONG THE LEFT STERNAL BORDER) GI Palpation (GI): Soft to palpation, nontender, No hepatosplenomegaly present, no masses and Other GI palpation findings present (Abdomen is the obese and protuberant) Auscultation: normal bowel sounds Back/Spine/Pelvis Thoracic/Lumbar Spine: thoracic and lumbar spine normal to inspection Skin General skin exam: no rashes or lesions noted Neuro General: patient oriented x3 and no focal motor deficits Cranial nerves: Yes CN's II-XII intact bilaterally Extrem General: Yes normal to inspection, Yes no calf tenderness and Yes venous stasis dermatitis (Both legs, more severe on the right side) Psych Mental Status: mental status grossly normal Speech and movement: Normal speech and movement present Results Reviewed Results Reviewed: Compliance report is reviewed. Used 28/30 nights, 93%. Average use it per night 4 hours 34 minutes, this is because he goes to sleep around 2 or 03:00. He is on CPAP of 15 cm. There is no significant air leak. And residual AHI only 1.0 Assessment & Plan Assessment & Plan (1) COPD (chronic obstructive pulmonary disease): Comment: COPD IS REMAINING QUITE STABLE WITH THE REGULAR REGIMEN,. HE HAS HAD NO INCREASE IN RESPIRATORY SYMPTOMS. Code(s): J44.9 - Chronic obstructive pulmonary disease, unspecified Category: Medical Qualifiers: COPD type: COPD with acute exacerbation Qualified Code(s): J44.1 - Chronic obstructive pulmonary disease with (acute) exacerbation Plan: ADVISED TO CONTINUE PRESENT MEDICATIONS: ADVAIR 500-51 INHALATION B.I.D. LEVALBUTEROL 1.25 MG IN NEBULIZER Q 4-6 HOURS P.R.N. PREDNISONE 5 MG ON ALTERNATE DAYS. AZITHROMYCIN 250 MG Saturday (2) Hypoventilation: Comment: HE HAS CHRONIC HYPOVENTILATION , WITH HYPERCAPNIA. VENOUS BLOOD GAS REPEATED, PH =7.34, PCO2 60 HCO3 33 ( C/W CHRONIC COMPENSATED RESPIRATORY FAILURE) improved from last visit Code(s): R06.89 - Other abnormalities of breathing Category: Medical Plan: CONTINUE TO DO DEEP BREATHING EXERCISES WITH PURSED LIP TECHNIQUE TO 2 3 TIMES A DAY. CONTINUE TO USE CPAP NIGHT USE IT FOR AT LEAST 6 HOURS EVERY NIGHT. CONTINUE ACETAZOLAMIDE 250 MG P.O. DAILY (3) (HFpEF) heart failure with preserved ejection fraction: Comment: PATIENT ALSO HAS PAROXYSMAL ATRIAL FIBRILLATION AND, CONGESTIVE HEART FAILURE, CONTRIBUTING TO HIS INCREASED SHORTNESS OF BREATH. CURRENTLY VERY STABLE AND CONTROLLED. Code(s): I50.30 - Unspecified diastolic (congestive) heart failure Category: Medical Plan: CONTINUE PRESENT MEDICATION Medications: Changed From azithromycin start on day 2 of therapy 250 mg PO .MWF To azithromycin start on day 2 of therapy 250 mg PO .MWF 36 tabs 3RF COPD/BRONCHITIS 90 days Coding Level of Care Code Est Pt Level 3 (34103) Diagnoses COPD (chronic obstructive pulmonary disease) J44.1 COPD type: COPD with acute exacerbation Hypoventilation R06.89 (HFpEF) heart failure with preserved ejection fraction I50.30
== END 2023-06-06 14:28 | disposition home or self-care (01) ==
PROVIDERS: PCP Internal Medicine; Visit Provider Internal Medicine
DX: J44.1 Chronic obstructive pulmonary disease with (acute) exacerbation (principal); R06.89 Other abnormalities of breathing; I50.30 Unspecified diastolic (congestive) heart failure
CPT/HCPCS: 99213

== ENCOUNTER → 2023-06-06 13:50 | Outpatient (BNVA) | payer MEDICARE, SELFPAY | PROVIDERS: PCP Internal Medicine; Visit Provider Internal Medicine | DX: J44.1 Chronic obstructive pulmonary disease with (acute) exacerbation (principal); R06.89 Other abnormalities of breathing; I50.30 Unspecified diastolic (congestive) heart failure; Z79.899 Other long term (current) drug therapy | CPT/HCPCS: 99212 ==

== ENCOUNTER → 2023-06-12 12:52 | Outpatient (REF) | payer MEDICARE, SELFPAY ==
--- NOTE | 2023-06-12 12:57 | CA_ITS ---
Transthoracic Echocardiogram Patient (Last, First, Middle): Jay Gonzales, Gender: Male Date of : 1945 Age: 77 Procedure Date: 06/12/2023 Procedure Type: Transthoracic Echocardiogram Location: OP Height: 175.26 cm Weight: 108.86 kg BSA: 2.23 m2 Heart Rate: bpm BP: 134 / 80 mmHg Restaurant Assistant: Referring MD: Justin Nava MD Symptoms: I50.30 - Unspecified diastolic (congestive) heart failure Study Quality: Adequate ECG Rhythm: Sinus Conclusions: - The left ventricular systolic function is normal. The calculated ejection fraction is 58% by biplane method. - The left atrium is severely dilated. - Mitral valve is not well-visualized. Eccentric mitral regurgitation adjacent to the anterior mitral leaflet. Severity difficult to assess. Possibly moderate. - Liver cyst(7x8cm) noted; consider dedicated ultrasound if clinically indicated. Findings Left Ventricle Normal left ventricular cavity size. There is mildly increased left ventricular wall thickness. The left ventricular systolic function is normal. The calculated ejection fraction is 58% by biplane method. There is no evidence of regional wall motion abnormalities. Diastolic function is normal for age. E/E prime ratio is <8, consistent with normal filling pressures. Right Ventricle Normal right ventricular cavity size and systolic function. Atria The left atrium is severely dilated. The right atrium is mildly dilated. Aortic Valve The aortic valve was not well visualized. There is no aortic valve stenosis. There is trace (trivial) aortic valve regurgitation. Mitral Valve There is no mitral valve stenosis. Mitral valve is not well-visualized. Eccentric mitral regurgitation adjacent to the anterior mitral leaflet. Severity difficult to assess. Pulmonic Valve The pulmonic valve is likely normal. Tricuspid Valve There is mild tricuspid valve regurgitation. There is no evidence of pulmonary hypertension. Great Vessels There is mild dilatation of the ascending aorta measuring 3.90 cm. Venous The inferior vena cava is normal in size and collapses greater than 50% with inspiration. Pericardium/Pleural There is no evidence of pericardial effusion. Prior Study Comparison Changes noted compared to prior study dated: 06/04/2022. see comment on mitral regurgitation. Recommendations, Care & Conclusions Consider a ARJUN if clinically appropriate. Measurements 2D Linear Measurements IVSd: 1.28 0.6-0.9/0.6-1.0 cm LVIDd: 5.34 3.9-5.3/4.2-5.9 cm LVIDd Index: 2.39 2.4-3.2/2.2-3.1 cm/m2 LVIDs: 3.69 2.0-3.6 cm LVPWd: 1.28 0.7-1.1 cm Ao Root: 3.90 2.1-3.5 cm LA Diam: 3.80 2.7-3.8/3.0-4.0 cm LAIDs Index: 1.70 1.5-2.3 cm/m2 LV Mass: 354.40 67-162/88-224 g LV Mass Index: 158.92 43-95/49-115 g/m2 LVOT Diam: 2.50 3.0+(-)1.3 cm 2D Systolic Function EF 4C: 64.40 >55% EF 2C: 51.80 >55% EF BiP: 58.30 >55% Mitral Valve MV Pk E: 0.60 MV PK A: 0.75 MV Decel Time: 114.00 E/A: 0.80 E'Lateral: 9.68 E'Medial: 7.94 E/E' Med: 7.60 E/E' Lat: 6.20 PHT: 33.00 MVA PHT: 6.67 Decel Beckham: 5.25 Aortic Valve AoV Pk Hernandez: 1.24 AoV Mn Hernandez: 0.78 AoV VTI: 0.29 AoV Pk Grad: 6.00 Aov Mn Grad: 3.00 AGUSTIN Cont.VTI: 3.58 LVOT LVOT Pk Hernandez: 0.93 LVOT Mn Hernandez: 0.60 LVOT VTI: 0.21 LVOT Pk Grad: 3.00 LVOT Mn Grad: 2.00 LVOT Diam: 2.50 LVOT Area: 4.91 Diastolic Function MV Pk E: 0.60 MV Pk A: 0.75 E/A: 0.80 E'Medial: 7.94 E/E' Med: 7.60 E' Laterial: 9.68 E/E' Lat: 6.20 Right Ventricle TAPSE (mm): 32.00 TVS' Hernandez: 10.00 Tricuspid Valve TR Pk Hernandez: 2.10 TR Pk Grad: 18.00 RA Press: 3.00 RVSP: 21.00 Great Vessels Aorta Ao Root-2D: 3.90 2.0-3.7 cm Ao Asc: 3.90 2.1-3.4 cm Pulmonary Valve PV Pk Hernandez: 0.90 Peak PV Grad: 3.00 Updated in Other Vendor System with Status of Final Art Narvaez MD electronically signed on 06/14/2023 3:26:57 PM with status of Final
== END ==
LOC: HO.CARD 12:52
PROVIDERS: Visit Provider Internal Medicine Cardiovascular Disease
DX: I50.30 Unspecified diastolic (congestive) heart failure (principal)
CPT/HCPCS: 93306

== ENCOUNTER → 2023-06-12 12:57 | Outpatient (BNV) | payer MEDICARE, SELFPAY | PROVIDERS: Visit Provider Internal Medicine | DX: I34.0 Nonrheumatic mitral (valve) insufficiency (principal); I36.1 Nonrheumatic tricuspid (valve) insufficiency | CPT/HCPCS: 93306 ==

== ENCOUNTER 2023-06-18 13:46 | Outpatient (AMB) | payer MEDICARE, SELFPAY ==
--- NOTE | 2023-06-18 13:51 | MHC.OFFVISCO ---
Intake Intake Visit Reasons: Anticoagulation Allergies albuterol Adverse Reaction (Intermediate, Verified 06/18/23 13:47) Palpitations amoxicillin [From Augmentin] Adverse Reaction (Intermediate, Verified 06/18/23 13:47) Nausea and Vomiting, dizziness clavulanic acid [From Augmentin] Adverse Reaction (Intermediate, Verified 06/18/23 13:47) Nausea and Vomiting, dizziness Medication List - Last Reconciled 06/18/23 by Kelly Cabrera RN acetaminophen 1,000 mg PO Q6H PRN acetazolamide 250 mg PO DAILY 30 days atorvastatin 20 mg PO DAILY azithromycin 250 mg PO .MWF 90 days diltiazem HCl CD 120 mg PO DAILY docusate sodium 200 mg PO DAILY flecainide 50 mg PO BID fluticasone propion-salmeterol 500-50 mcg/dose (Wixela Inhub) 1 inh inhalation BID 90 days furosemide 40 mg PO BID levalbuterol HCl 1.25 mg (0.5 mL) inhalation RQ4H WHILE AWAKE 90 days multivitamin 1 tab PO DAILY potassium chloride ER 10 mEq PO DAILY prednisone 5 mg PO 4XW 30 days sennosides (senna) 25.8 mg PO BEDTIME warfarin 5 mg See Protocol PO SUMOWEFR@1800 warfarin 7.5 mg See Protocol PO TUTHSA@1800 Nursing Note INR: 2.2- in therapeutic range of 2-3 Medications and supplements reviewed- no changes No changes in health, diet, medications, or supplements, Denies any signs and symptoms of bleeding or bruising or clotting. Bleeding, bruising, clotting discussed - bruising to arms, pt states less Nutritional guidance given Dose: 7.5mg x 3, 5mg x 4 F/U INR: 2 weeks Patient verbalizes understanding of instructions given Anti-Coag Initial Assessment Social Hx Patient Tobacco Use Status: Former Tobacco user alcohol intake: current Alcohol intake frequency: a few times a week Coding Level of Care Code Est Patient Level 1 Diagnoses Current use of anticoagulant therapy Z79.01 Results AMB INR Fingerstick AMB INR Fingerstick 2.2 Last Edit by Kelly Cabrera RN on 06/18/23 13:53 Assessment & Plan Assessment & Plan (1) Current use of anticoagulant therapy: Code(s): 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
[2023-06-18 13:53] LABS: Prothrombin Time Whole Bld POC 25.9 sec (11.1-13.5); ~PT, ~INR - Anti Coag Clinic 2.2 (0.9-1.1)
== END 2023-06-18 14:34 | disposition home or self-care (01) ==
LOC: HO.ACS 13:46
PROVIDERS: PCP Internal Medicine; Visit Provider Internal Medicine
DX: Z79.01 Long term (current) use of anticoagulants (principal)

== ENCOUNTER → 2023-06-18 13:46 | Outpatient (BNVA) | payer MEDICARE, SELFPAY | PROVIDERS: PCP Internal Medicine; Visit Provider Internal Medicine | DX: I50.30 Unspecified diastolic (congestive) heart failure (principal); I48.0 Paroxysmal atrial fibrillation; I77.89 Other specified disorders of arteries and arterioles; I48.19 Other persistent atrial fibrillation; Z86.718 Personal history of other venous thrombosis and embolism; Z51.81 Encounter for therapeutic drug level monitoring; Z79.01 Long term (current) use of anticoagulants; Z79.899 Other long term (current) drug therapy; I34.0 Nonrheumatic mitral (valve) insufficiency | CPT/HCPCS: 85610; 93005; 99211; 99212 ==

== ENCOUNTER 2023-06-18 14:00 | Outpatient (AMB) | payer MEDICARE, SELFPAY ==
[2023-06-18 14:18] VITALS: BP 120/74; PULSE 80; BMI 35.5
--- NOTE | 2023-06-18 14:18 | MHC.OFFVIS ---
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: No Allergies albuterol Adverse Reaction (Intermediate, Verified 06/18/23 13:47) Palpitations amoxicillin [From Augmentin] Adverse Reaction (Intermediate, Verified 06/18/23 13:47) Nausea and Vomiting, dizziness clavulanic acid [From Augmentin] Adverse Reaction (Intermediate, Verified 06/18/23 13:47) Nausea and Vomiting, dizziness Medication List - Last Reconciled 06/18/23 by Justin Nava MD acetaminophen 1,000 mg PO Q6H PRN acetazolamide 250 mg PO DAILY 30 days atorvastatin 20 mg PO DAILY azithromycin 250 mg PO .MWF 90 days diltiazem HCl CD 120 mg PO DAILY docusate sodium 200 mg PO DAILY flecainide 50 mg PO BID fluticasone propion-salmeterol 500-50 mcg/dose (Wixela Inhub) 1 inh inhalation BID 90 days furosemide 40 mg PO BID levalbuterol HCl 1.25 mg (0.5 mL) inhalation RQ4H WHILE AWAKE 90 days multivitamin 1 tab PO DAILY potassium chloride ER 10 mEq PO DAILY prednisone 5 mg PO 4XW 30 days sennosides (senna) 25.8 mg PO BEDTIME warfarin 5 mg See Protocol PO SUMOWEFR@1800 warfarin 7.5 mg See Protocol PO TUTHSA@1800 HPI Comments Details: Jay comes for his annual follow-up. Overall he has been doing well. His recent echocardiogram was showing normal LV ejection fraction but showed significantly enlarged left atrium and showed eccentric mitral regurgitation probably moderate. He has not noticed any worsening shortness of breath. Continues to exertional shortness of breath. Continues take all his medications. No prolonged irregular heartbeat or palpitations. He denies any bleeding issues or neurologic events. Continues to have swelling in both his lower extremity but can not wear compression stockings. His INRs have been therapeutic. His COPD is well managed. [facility] Medical History Hypoventilation Restrictive airway disease (HFpEF) heart failure with preserved ejection fraction CHF exacerbation Cough Paroxysmal atrial fibrillation Lymphedema of both lower extremities DEREK on CPAP Obesity (BMI 35.0-39.9 without comorbidity) COPD (chronic obstructive pulmonary disease) Varicose veins of right lower extremity with inflammation Surgical History History of appendectomy Family History Father No problems noted. Mother No problems noted. Sister No problems noted. Sister No problems noted. Son No problems noted. Daughter No problems noted. Social History Household Members: Spouse Housing: House Do you presently have visiting nurse or other home services: No Alcohol intake: current Alcohol intake frequency: a few times a week Alcohol type: beer Comment: PT USES CALL LIGHT APPROPRIATELY Patient Tobacco Use Status: Former Tobacco user service: Yes Current occupational status: retired Review of Systems Const Denies chills, Denies fatigue, Denies fever(s), Denies frequent falls, Denies weakness, Denies weight gain and Denies weight loss ENT Denies dizziness Card Denies chest pain, Denies leg edema, Denies lightheadedness, Denies palpitations, Denies dyspnea, Denies dyspnea on exertion, Denies orthopnea and Denies other (loss of consciousness) Resp Denies cough, Denies dyspnea and Denies dyspnea on exertion GI Denies hematochezia and Denies change in stool character Musc Denies abnormal gait, Denies muscle weakness, Denies numbness, Denies radiating pain into limb and Denies tingling Neuro Denies abnormal gait, Denies dizziness, Denies frequent falls, Denies numbness, Denies tingling and Denies weakness Endo Denies fatigue and Denies palpitations Physical Exam Vital Signs: Last Vital Signs Pulse 80 06/18/23 14:18 BP 120/74 06/18/23 14:18 BMI result Body Mass Index 35.5 Const General: cooperative, comfortable, no acute distress and alert Nutritional Appearance: obese Orientation/consciousness: patient oriented x3 Limitations: no limitations Neck Neck: Yes trachea midline, Yes supple and Yes no JVD Chest Chest palpation & inspection: normal inspection of the chest Resp Effort & Inspection: normal respiratory effort Auscultation: clear to auscultation bilaterally and diminished lung sounds (Left greater than right) Cardio Jugular venous distension: no JVD Palpation: normal PMI Rate: regular rate Rhythm: regular rhythm Heart sounds: S1 normal heart sound present, S2 normal heart sound present, Murmur heart sound present systolic holo and at the left sternal border and Other heart sounds present (S4 present) Skin General skin exam: no rashes or lesions noted Neuro General: patient oriented x3 and no focal motor deficits Extrem General: No cyanosis, No edema and Yes other (Bilateral lymphedema, right greater than left) Psych Appearance: grossly normal Office Procedures EKG Details: EKG shows normal sinus rhythm with right bundle-branch block with Q-waves in lead 3 [id number], Complete Results AMB INR Fingerstick AMB INR Fingerstick 2.2 Last Edit by Kelly Cabrera RN on 06/18/23 13:53 Assessment & Plan Assessment & Plan (1) (HFpEF) heart failure with preserved ejection fraction: Comment: PATIENT ALSO HAS PAROXYSMAL ATRIAL FIBRILLATION AND, CONGESTIVE HEART FAILURE, CONTRIBUTING TO HIS INCREASED SHORTNESS OF BREATH. CURRENTLY VERY STABLE AND CONTROLLED. Code(s): I50.30 - Unspecified diastolic (congestive) heart failure Category: Medical Plan: Heart failure preserved ejection fraction, clinically euvolemic and well compensated on current management of rhythm. He continues to be on Lasix 40 mg b.i.d. which is doing well as well. Continue rhythm control approach which has helped him significantly. Continue to optimize pulmonary function. Daily weight monitoring avoidance of salt loading was discussed. Understands agrees. Additional diuretics as need be. Will follow up in the clinic in 1 year's time after an echocardiogram. (2) Paroxysmal atrial fibrillation: Comment: PAROXYSMAL ATRIAL FIBRILLATION BEING CONTROLLED WITH DILTIAZEM WELL FLECAINIDE Code(s): I48.0 - Paroxysmal atrial fibrillation Category: Medical Plan: Paroxysmal atrial fibrillation/flutter. Doing well with rhythm control approach will continue pursue rhythm control approach. Currently on flecainide therapy. Continue concomitant Cardizem therapy for slowing AV conduction. Continue full oral anticoagulation, currently on warfarin therapy being followed by [facility]. Maintain target INR from 2 and 3. (3) Enlarged thoracic aorta: Code(s): I77.89 - Other specified disorders of arteries and arterioles Category: Medical Plan: Stable ascending aorta. No interventions required. Continue monitor by echocardiogram on annual basis. Continue aggressive blood pressure control which is currently well optimized. (4) Mitral regurgitation: Code(s): I34.0 - Nonrheumatic mitral (valve) insufficiency Category: Medical Plan: Mitral regurgitation which is moderate related to left atrial enlargement. Mitral regurgitation does not require any further treatment. Will follow annually clinically as well as by echocardiogram. Will follow up in the clinic in 6 months for EKG in 1 year with me. Thank you for allowing me to partake in his care Orders: Orders CA echo transthoracic complete 1 Year I50.30 - Unspecified diastolic (congestive) heart failure Coding Level of Care Code Est Pt Level 4 (12037) Diagnoses (HFpEF) heart failure with preserved ejection fraction I50.30 Paroxysmal atrial fibrillation I48.0 Enlarged thoracic aorta I77.89 Mitral regurgitation I34.0 CPT Codes EKG - CPT: 79762-[id number], Complete ([id number])
== END 2023-06-18 15:17 | disposition home or self-care (01) ==
PROVIDERS: PCP Internal Medicine; Visit Provider Internal Medicine Cardiovascular Disease
DX: I50.30 Unspecified diastolic (congestive) heart failure (principal); I48.0 Paroxysmal atrial fibrillation; I77.89 Other specified disorders of arteries and arterioles; I34.0 Nonrheumatic mitral (valve) insufficiency
CPT/HCPCS: 93010; 99214

== ENCOUNTER → 2023-07-02 13:23 | Outpatient (BNVA) | payer MEDICARE, SELFPAY | PROVIDERS: PCP Internal Medicine; Visit Provider Internal Medicine | DX: I48.19 Other persistent atrial fibrillation (principal); Z86.718 Personal history of other venous thrombosis and embolism; Z79.01 Long term (current) use of anticoagulants; Z51.81 Encounter for therapeutic drug level monitoring | CPT/HCPCS: 85610; 99211 ==

== ENCOUNTER 2023-07-16 13:03 | Outpatient (AMB) | payer MEDICARE, SELFPAY ==
--- NOTE | 2023-07-16 13:10 | MHC.OFFVISCO ---
Intake Intake Visit Reasons: Anticoagulation Allergies albuterol Adverse Reaction (Intermediate, Verified 07/16/23 13:04) Palpitations amoxicillin [From Augmentin] Adverse Reaction (Intermediate, Verified 07/16/23 13:04) Nausea and Vomiting, dizziness clavulanic acid [From Augmentin] Adverse Reaction (Intermediate, Verified 07/16/23 13:04) Nausea and Vomiting, dizziness Medication List - Last Reconciled 07/16/23 by Kelly Cabrera RN acetaminophen 1,000 mg PO Q6H PRN acetazolamide 250 mg PO DAILY 30 days atorvastatin 20 mg PO DAILY azithromycin 250 mg PO .MWF 90 days diltiazem HCl CD 120 mg PO DAILY docusate sodium 200 mg PO DAILY flecainide 50 mg PO BID fluticasone propion-salmeterol 500-50 mcg/dose (Wixela Inhub) 1 inh inhalation BID 90 days furosemide 40 mg PO BID levalbuterol HCl 1.25 mg (0.5 mL) inhalation RQ4H WHILE AWAKE 90 days multivitamin 1 tab PO DAILY potassium chloride ER 10 mEq PO DAILY prednisone 5 mg PO 4XW 30 days sennosides (senna) 25.8 mg PO BEDTIME warfarin 5 mg See Protocol PO SUMOWEFR@1800 warfarin 7.5 mg See Protocol PO TUTHSA@1800 Nursing Note INR: 2.1- in therapeutic range of 2-3 Medications and supplements reviewed- no changes No changes in health, diet, medications, or supplements, Denies any signs and symptoms of bleeding or bruising or clotting. 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
[2023-07-16 13:11] LABS: Prothrombin Time Whole Bld POC 24.7 sec (11.1-13.5); ~PT, ~INR - Anti Coag Clinic 2.1 (0.9-1.1)
[2023-07-17 09:17] LABS: Prothrombin Time Whole Bld POC 24.5 sec (11.1-13.5)
== END 2023-07-16 13:19 | disposition home or self-care (01) ==
LOC: HO.ACS 13:03
PROVIDERS: PCP Internal Medicine; Visit Provider Internal Medicine
DX: Z79.01 Long term (current) use of anticoagulants (principal)

== ENCOUNTER → 2023-07-16 13:03 | Outpatient (BNVA) | payer MEDICARE, SELFPAY | PROVIDERS: PCP Internal Medicine; Visit Provider Internal Medicine | DX: I48.19 Other persistent atrial fibrillation (principal); Z86.718 Personal history of other venous thrombosis and embolism; Z79.01 Long term (current) use of anticoagulants; Z51.81 Encounter for therapeutic drug level monitoring | CPT/HCPCS: 85610; 99211 ==

== ENCOUNTER 2023-07-26 13:14 | Outpatient (AMB) | payer MEDICARE, SELFPAY ==
--- NOTE | 2023-07-26 13:47 | MHC.OFFVISCO ---
Intake Intake Visit Reasons: Anticoagulation Allergies albuterol Adverse Reaction (Intermediate, Verified 07/26/23 13:25) Palpitations amoxicillin [From Augmentin] Adverse Reaction (Intermediate, Verified 07/26/23 13:25) Nausea and Vomiting, dizziness clavulanic acid [From Augmentin] Adverse Reaction (Intermediate, Verified 07/26/23 13:25) Nausea and Vomiting, dizziness Medication List - Last Reconciled 07/26/23 by Chaya Yarbrough RN acetaminophen 1,000 mg PO Q6H PRN acetazolamide 250 mg PO DAILY 30 days atorvastatin 20 mg PO DAILY azithromycin 250 mg PO .MWF 90 days diltiazem HCl CD 120 mg PO DAILY docusate sodium 200 mg PO DAILY doxycycline monohydrate 100 mg PO BID flecainide 50 mg PO BID fluticasone propion-salmeterol 500-50 mcg/dose (Wixela Inhub) 1 inh inhalation BID 90 days furosemide 40 mg PO BID levalbuterol HCl 1.25 mg (0.5 mL) inhalation RQ4H WHILE AWAKE 90 days multivitamin 1 tab PO DAILY potassium chloride ER 10 mEq PO DAILY prednisone 5 mg PO 4XW 30 days prednisone 10 mg PO DAILY sennosides (senna) 25.8 mg PO BEDTIME warfarin 5 mg See Protocol PO SUMOWEFR@1800 warfarin 7.5 mg See Protocol PO TUTHSA@1800 Nursing Note pt on vacation next week INR 1.9 out of therapeutic range Medications and supplements reviewed Patient status: May have had more greens than usual Medications or supplements: no changes Diet: good Denies any signs and symptoms of bleeding or clotting or unusual bruising Bleeding, bruising, clotting discussed Nutritional guidance given: avoid greens x 2 days then resume, review food list weekly, eat a mix of fruits and vegetables, when eating more greens increase reds Dose: booster dose today 7.5mg then resume 7.5mg x 2 days/ 5mg x 5 days- If INR persists to be low then increase weekly dose F/U INR Date: 2 weeks ?? Patient verbalizing understanding of instructions given. 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
[2023-07-27 09:24] LABS: Prothrombin Time Whole Bld POC 23.3 sec (11.1-13.5); ~PT, ~INR - Anti Coag Clinic 1.9 (0.9-1.1)
== END 2023-07-26 13:50 | disposition home or self-care (01) ==
LOC: HO.ACS 13:14
PROVIDERS: PCP Internal Medicine; Visit Provider Internal Medicine
DX: Z79.01 Long term (current) use of anticoagulants (principal)

== ENCOUNTER → 2023-07-26 13:14 | Outpatient (BNVA) | payer MEDICARE, SELFPAY | PROVIDERS: PCP Internal Medicine; Visit Provider Internal Medicine | DX: I48.19 Other persistent atrial fibrillation (principal); Z86.718 Personal history of other venous thrombosis and embolism; Z79.01 Long term (current) use of anticoagulants; Z51.81 Encounter for therapeutic drug level monitoring | CPT/HCPCS: 85610; 99211 ==

== ENCOUNTER 2023-08-12 13:01 | Outpatient (AMB) | payer MEDICARE, SELFPAY ==
--- NOTE | 2023-08-12 13:07 | MHC.OFFVISCO ---
Intake Intake Visit Reasons: Anticoagulation Allergies albuterol Adverse Reaction (Intermediate, Verified 08/12/23 13:02) Palpitations amoxicillin [From Augmentin] Adverse Reaction (Intermediate, Verified 08/12/23 13:02) Nausea and Vomiting, dizziness clavulanic acid [From Augmentin] Adverse Reaction (Intermediate, Verified 08/12/23 13:02) Nausea and Vomiting, dizziness Medication List - Last Reconciled 08/12/23 by Kelly Cabrera RN acetaminophen 1,000 mg PO Q6H PRN acetazolamide 250 mg PO DAILY 30 days atorvastatin 20 mg PO DAILY azithromycin 250 mg PO .MWF 90 days diltiazem HCl CD 120 mg PO DAILY docusate sodium 200 mg PO DAILY flecainide 50 mg PO BID fluticasone propion-salmeterol 500-50 mcg/dose (Wixela Inhub) 1 inh inhalation BID 90 days furosemide 40 mg PO BID levalbuterol HCl 1.25 mg (0.5 mL) inhalation RQ4H WHILE AWAKE 90 days multivitamin 1 tab PO DAILY potassium chloride ER 10 mEq PO DAILY prednisone 5 mg PO 4XW 30 days sennosides (senna) 25.8 mg PO BEDTIME warfarin 5 mg See Protocol PO SUMOWEFR@1800 warfarin 7.5 mg See Protocol PO TUTHSA@1800 Nursing Note INR 1.9-?? out of therapeutic range of 2-3 pt denies missed dose Medications and supplements reviewed Patient status: no c.o Medications or supplements: no changes Diet: same Denies any signs and symptoms of bleeding or clotting or unusual bruising Bleeding, bruising, clotting discussed Nutritional guidance given: no greens for 2 days, eat a red today Dose: 7.5mg today then increase weekly dosing, 5mg x 3, 7.5mg x 4 F/U INR Date : 2 weeks?? Patient verbalizing understanding of instructions given. Anti-Coag Initial Assessment Social Hx Patient Tobacco Use Status: Former Tobacco user alcohol intake: current Alcohol intake frequency: a few times a week Coding Level of Care Code Est Patient Level 1 Diagnoses Current use of anticoagulant therapy Z79.01 Results AMB INR Fingerstick AMB INR Fingerstick 1.9 Last Edit by Kelly Cabrera RN on 08/12/23 13:09 Assessment & Plan Assessment & Plan (1) Current use of anticoagulant therapy: Code(s): Z79.01 - intermediate (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
[2023-08-13 08:02] LABS: Prothrombin Time Whole Bld POC 23.3 sec (11.1-13.5); ~PT, ~INR - Anti Coag Clinic 1.9 (0.9-1.1)
== END 2023-08-12 13:14 | disposition home or self-care (01) ==
LOC: HO.ACS 13:01
PROVIDERS: PCP Internal Medicine; Visit Provider Internal Medicine
DX: Z79.01 Long term (current) use of anticoagulants (principal)

== ENCOUNTER → 2023-08-12 13:01 | Outpatient (BNVA) | payer MEDICARE, SELFPAY | PROVIDERS: PCP Internal Medicine; Visit Provider Internal Medicine | DX: I48.19 Other persistent atrial fibrillation (principal); Z86.718 Personal history of other venous thrombosis and embolism; Z51.81 Encounter for therapeutic drug level monitoring; Z79.01 Long term (current) use of anticoagulants | CPT/HCPCS: 85610; 99211 ==

== ENCOUNTER 2023-08-26 13:03 | Outpatient (AMB) | payer MEDICARE, SELFPAY ==
[2023-08-26 13:11] LABS: Prothrombin Time Whole Bld POC 36.2 sec (11.1-13.5)
--- NOTE | 2023-08-26 13:18 | MHC.OFFVISCO ---
Intake Intake Visit Reasons: Anticoagulation Allergies albuterol Adverse Reaction (Intermediate, Verified 08/26/23 13:06) Palpitations amoxicillin [From Augmentin] Adverse Reaction (Intermediate, Verified 08/26/23 13:06) Nausea and Vomiting, dizziness clavulanic acid [From Augmentin] Adverse Reaction (Intermediate, Verified 08/26/23 13:06) Nausea and Vomiting, dizziness Medication List - Last Reconciled 08/26/23 by Lottie Avila RN acetaminophen 1,000 mg PO Q6H PRN acetazolamide 250 mg PO DAILY 30 days atorvastatin 20 mg PO DAILY azithromycin 250 mg PO .MWF 90 days diltiazem HCl CD 120 mg PO DAILY docusate sodium 200 mg PO DAILY flecainide 50 mg PO BID fluticasone propion-salmeterol 500-50 mcg/dose (Wixela Inhub) 1 inh inhalation BID 90 days furosemide 40 mg PO BID levalbuterol HCl 1.25 mg (0.5 mL) inhalation RQ4H WHILE AWAKE 90 days multivitamin 1 tab PO DAILY potassium chloride ER 10 mEq PO DAILY prednisone 5 mg PO 4XW 30 days sennosides (senna) 25.8 mg PO BEDTIME warfarin 5 mg See Protocol PO SUMOWEFR@1800 warfarin 7.5 mg See Protocol PO TUTHSA@1800 Nursing Note INR: 3.0 in therapeutic range of 2-3 Medications and supplements reviewed No changes in health, diet, medications, or supplements, Denies any signs and symptoms of bleeding or bruising or clotting. Bleeding, bruising, clotting discussed Nutritional guidance given to have a serving of greens today Dose: 7.5mg X 4 days and 5mg X 3 days F/U INR: 2 weeks Patient verbalizes understanding of instructions given Anti-Coag Initial Assessment Social Hx Patient Tobacco Use Status: Former Tobacco user alcohol intake: current Alcohol intake frequency: a few times a week Coding Level of Care Code Est Patient Level 1 Diagnoses Current use of anticoagulant therapy Z79.01 Assessment & Plan Assessment & Plan (1) Current use of anticoagulant therapy: Code(s): Z79.01 - custodial (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
== END 2023-08-26 13:21 | disposition home or self-care (01) ==
LOC: HO.ACS 13:03
PROVIDERS: PCP Internal Medicine; Visit Provider Internal Medicine
DX: Z79.01 Long term (current) use of anticoagulants (principal)

== ENCOUNTER → 2023-08-26 13:03 | Outpatient (BNVA) | payer MEDICARE, SELFPAY | PROVIDERS: PCP Internal Medicine; Visit Provider Internal Medicine | DX: I48.19 Other persistent atrial fibrillation (principal); Z86.718 Personal history of other venous thrombosis and embolism; Z79.01 Long term (current) use of anticoagulants; Z51.81 Encounter for therapeutic drug level monitoring | CPT/HCPCS: 85610; 99211 ==

== ENCOUNTER 2023-09-06 13:01 | Outpatient (AMB) | payer MEDICARE, SELFPAY ==
--- NOTE | 2023-09-06 13:07 | MHC.OFFVISCO ---
Intake Intake Visit Reasons: Anticoagulation Allergies albuterol Adverse Reaction (Intermediate, Verified 09/06/23 13:03) Palpitations amoxicillin [From Augmentin] Adverse Reaction (Intermediate, Verified 09/06/23 13:03) Nausea and Vomiting, dizziness clavulanic acid [From Augmentin] Adverse Reaction (Intermediate, Verified 09/06/23 13:03) Nausea and Vomiting, dizziness Medication List - Last Reconciled 09/06/23 by Kelly Cabrera RN acetaminophen 1,000 mg PO Q6H PRN acetazolamide 250 mg PO DAILY 30 days atorvastatin 20 mg PO DAILY azithromycin 250 mg PO .MWF 90 days diltiazem HCl CD 120 mg PO DAILY docusate sodium 200 mg PO DAILY flecainide 50 mg PO BID fluticasone propion-salmeterol 500-50 mcg/dose (Wixela Inhub) 1 inh inhalation BID 90 days furosemide 40 mg PO BID levalbuterol HCl 1.25 mg (0.5 mL) inhalation RQ4H WHILE AWAKE 90 days multivitamin 1 tab PO DAILY potassium chloride ER 10 mEq PO DAILY prednisone 5 mg PO 4XW 30 days sennosides (senna) 25.8 mg PO BEDTIME warfarin 5 mg See Protocol PO SUMOWEFR@1800 warfarin 7.5 mg See Protocol PO TUTHSA@1800 Nursing Note INR: 3.0- in therapeutic range of 2-3 Medications and supplements reviewed- no changes No changes in health, diet, medications, or supplements, Denies any signs and symptoms of bleeding or bruising or clotting. Bleeding, bruising, clotting discussed Nutritional guidance given - eat a green today pt states has been eating beets, less reds to balance Dose: 5mg x3, 7.5mg x 4 F/U INR: 2 weeks Patient verbalizes understanding of instructions given Anti-Coag Initial Assessment Social Hx Patient Tobacco Use Status: Former Tobacco user alcohol intake: current Alcohol intake frequency: a few times a week Coding Level of Care Code Est Patient Level 1 Diagnoses Current use of anticoagulant therapy Z79.01 Results AMB INR Fingerstick AMB INR Fingerstick 3.0 Last Edit by Kelly Cabrera RN on 09/06/23 13:09 Assessment & Plan Assessment & Plan (1) Current use of anticoagulant therapy: Code(s): 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
[2023-09-06 13:08] LABS: Prothrombin Time Whole Bld POC 36.2 sec (11.1-13.5)
== END 2023-09-06 13:15 | disposition home or self-care (01) ==
LOC: HO.ACS 13:01
PROVIDERS: PCP Internal Medicine; Visit Provider Internal Medicine
DX: Z79.01 Long term (current) use of anticoagulants (principal)

== ENCOUNTER → 2023-09-06 13:01 | Outpatient (BNVA) | payer MEDICARE, SELFPAY | PROVIDERS: PCP Internal Medicine; Visit Provider Internal Medicine | DX: I48.19 Other persistent atrial fibrillation (principal); Z86.718 Personal history of other venous thrombosis and embolism; Z79.01 Long term (current) use of anticoagulants; Z51.81 Encounter for therapeutic drug level monitoring | CPT/HCPCS: 85610; 99211 ==

== ENCOUNTER 2023-09-18 10:35 | Outpatient (REF) | payer MEDICARE, SELFPAY ==
[2023-09-18 12:28] LABS: VBG pH 7.37 (7.32-7.43)
[2023-09-18 12:29] LABS: VBG Base Excess 0.6 mmol/L; VBG HCO3 25 mmol/L (22-26); VBG pCO2 44 mmHg; VBG pO2 141 mmHg
[2023-09-18 15:59] LABS: Venous Blood Gas Refer to POC result
== END 2023-09-18 10:36 | disposition home or self-care (01) ==
LOC: HO.LAB 10:35
PROVIDERS: PCP Internal Medicine; Visit Provider Internal Medicine
DX: J44.1 Chronic obstructive pulmonary disease with (acute) exacerbation (principal); J98.4 Other disorders of lung; R06.89 Other abnormalities of breathing
CPT/HCPCS: 36415; 82803; 99212

== ENCOUNTER 2023-09-18 10:35 | Outpatient (AMB) | payer MEDICARE, SELFPAY ==
[2023-09-18 10:44] VITALS: BP 118/70; PULSE 91; O2SAT 97; BMI 36.1
--- NOTE | 2023-09-18 10:44 | MHC.OFFVIS ---
Vital Signs 09/18/23 10:44 Height 5 ft 9 in Weight 244 lb 11.41 oz BMI 36.1 BP 118/70 Blood Pressure Location Lt brachial Position Sitting Pulse 91 Pulse Source Pulse Oximeter Pulse Oximetry (%) 97 Oxygen Delivery Method Room Air Intake Visit Reasons: santiago Intake Note: pt is here for SANTIAGO follow up and states he is feeling okay but having little mucous. please send in 90 day supply to [facility] User Experience Designer Required: No Allergies albuterol Adverse Reaction (Intermediate, Verified 09/18/23 11:18) Palpitations amoxicillin [From Augmentin] Adverse Reaction (Intermediate, Verified 09/18/23 11:18) Nausea and Vomiting, dizziness clavulanic acid [From Augmentin] Adverse Reaction (Intermediate, Verified 09/18/23 11:18) Nausea and Vomiting, dizziness Medication List - Last Reconciled 09/18/23 by Cheli Clarke MD acetaminophen 1,000 mg PO Q6H PRN acetazolamide 250 mg PO DAILY 30 days atorvastatin 20 mg PO DAILY azithromycin 250 mg PO .MWF 90 days diltiazem HCl CD 120 mg PO DAILY docusate sodium 200 mg PO DAILY flecainide 50 mg PO BID fluticasone propion-salmeterol 500-50 mcg/dose (Wixela Inhub) 1 inh inhalation BID 90 days furosemide 40 mg PO BID levalbuterol HCl 1.25 mg (0.5 mL) inhalation RQ4H WHILE AWAKE 90 days multivitamin 1 tab PO DAILY potassium chloride ER 10 mEq PO DAILY prednisone 5 mg PO 4XW 30 days sennosides (senna) 25.8 mg PO BEDTIME warfarin 5 mg See Protocol PO SUMOWEFR@1800 warfarin 7.5 mg See Protocol PO TUTHSA@1800 Do you need a note to return to daycare/school/sports/work: No HPI HPI santiago: Details: 77 years old very pleasant gentleman comes for. Follow-up after 4 months In the last 4 months he has done very well without any acute exacerbation He uses his CPAP very regularly at night, Uses O2 but only p.r.n. during the daytime He does do the breathing exercises regularly His breathing has stayed very stable. Overall feeling better than before . [facility] Medical History Hypoventilation Restrictive airway disease (HFpEF) heart failure with preserved ejection fraction CHF exacerbation Cough Paroxysmal atrial fibrillation Lymphedema of both lower extremities SANTIAGO on CPAP Obesity (BMI 35.0-39.9 without comorbidity) COPD (chronic obstructive pulmonary disease) Varicose veins of right lower extremity with inflammation Surgical History History of appendectomy Family History Father No problems noted. Mother No problems noted. Sister No problems noted. Sister No problems noted. Son No problems noted. Daughter No problems noted. Social History Household Members: Spouse Housing: House Do you presently have visiting nurse or other home services: No Alcohol intake: current Alcohol intake frequency: a few times a week Alcohol type: beer Comment: PT USES CALL LIGHT APPROPRIATELY Patient Tobacco Use Status: Former Tobacco user service: Yes Current occupational status: retired Review of Systems Const All systems reviewed & are unremarkable except as noted in HPI and below Eyes Reports no additional complaints ENT Reports nasal congestion (Mild intermittent) Card Denies chest pain, Denies irregular heart rhythm, Reports leg edema and Reports dyspnea on exertion Resp Reports as per HPI and Reports dyspnea on exertion GI Reports no additional complaints Reports no additional complaints Musc Reports no additional complaints Skin/Breast Reports system reviewed and no additional complaints, except as documented Neuro Reports no additional complaints Psych Reports no additional complaints Physical Exam Vital Signs: Last Vital Signs Pulse 91 09/18/23 10:44 BP 118/70 09/18/23 10:44 Pulse Ox 97 09/18/23 10:44 Oxygen Delivery Method Room Air 09/18/23 10:44 BMI result Body Mass Index 36.1 Const General: comfortable, no acute distress, alert and awake Orientation/consciousness: patient oriented x3 HEENT Head: Yes normal to inspection General nose exam: No nasal polyps present and No nasal discharge present Face and sinus: Yes sinuses nontender Mouth: oropharynx abnormals (Narrow and crowded, Mallampati class 3) Throat: Yes posterior oropharynx normal Eyes General: appearance normal, both eyes and all related structures Neck Neck: Yes normal visual inspection, Yes no lymphadenopathy, Yes trachea midline and Yes no JVD Thyroid: Thyroid normal Chest Chest palpation & inspection: normal inspection of the chest (Except for midline scar from previous surgery.), normal palpation of entire chest wall and no tenderness Resp Other: Percussion note resonant, breath sounds are distant on both sides, and decreased especially over the LEFT BASE. Prolonged expiratory phase. There are no wheezes or crepitations. Cardio Palpation: normal PMI Rate: regular rate Rhythm: regular rhythm Heart sounds: no gallops and Murmur heart sound present (A LOUD SYSTOLIC MURMUR ALONG THE LEFT STERNAL BORDER) GI Palpation (GI): Soft to palpation, nontender, No hepatosplenomegaly present, no masses and Other GI palpation findings present (Abdomen is the obese and protuberant) Auscultation: normal bowel sounds Back/Spine/Pelvis Thoracic/Lumbar Spine: thoracic and lumbar spine normal to inspection Skin General skin exam: no rashes or lesions noted Neuro General: patient oriented x3 and no focal motor deficits Cranial nerves: Yes CN's II-XII intact bilaterally Extrem General: Yes normal to inspection, Yes no calf tenderness and Yes venous stasis dermatitis (Both legs, more severe on the right side) Psych Mental Status: mental status grossly normal Speech and movement: Normal speech and movement present Results Reviewed Results Reviewed: VENOUS BLOOD GAS RESULTS PH 7.37, PCO2 44, BICARB 24 Assessment & Plan Assessment & Plan (1) COPD (chronic obstructive pulmonary disease): Comment: COPD IS REMAINING QUITE STABLE WITH THE REGULAR REGIMEN,. HE HAS HAD NO INCREASE IN RESPIRATORY SYMPTOMS. Code(s): J44.9 - Chronic obstructive pulmonary disease, unspecified Category: Medical Qualifiers: COPD type: COPD with acute exacerbation Qualified Code(s): J44.1 - Chronic obstructive pulmonary disease with (acute) exacerbation Plan: Continue Advair 500-51 inhalation b.i.d.. Prednisone 5 mg. On alternate days Azithromycin 250 mg 3 times a week. Levalbuterol 1.25 mg Q 4 to 6 hours p.r.n. (2) Hypoventilation: Comment: HE HAS CHRONIC HYPOVENTILATION , WITH HYPERCAPNIA. Code(s): R06.89 - Other abnormalities of breathing Category: Medical Plan: Advised to continue doing deep breathing exercises with pursed lip technique. Venous blood gases repeated AND ALMOST NORMALIZED. (3) Restrictive airway disease: Comment: HE HAS CHRONICALLY ELEVATED LEFT HEMIDIAPHRAGM, THIS CONTRIBUTES TO HIS RESTRICTIVE LUNG DISORDER. Code(s): J98.4 - Other disorders of lung Category: Medical Plan: ADVISED TO DO DEEP BREATHING EXERCISES WITH INCENTIVE SPIROMETRY 3 TO 4 TIMES A DAY. Orders: Orders Venous Blood Gas Today J44.1 - Chronic obstructive pulmonary disease with (acute) exacerbation, J98.4 - Other disorders of lung, R06.89 - Other abnormalities of breathing Coding Level of Care Code Est Pt Level 3 (09557) Diagnoses COPD (chronic obstructive pulmonary disease) J44.1 COPD type: COPD with acute exacerbation Hypoventilation R06.89 Restrictive airway disease J98.4
== END 2023-09-18 11:16 | disposition home or self-care (01) ==
PROVIDERS: PCP Internal Medicine; Visit Provider Internal Medicine
DX: J44.1 Chronic obstructive pulmonary disease with (acute) exacerbation (principal); R06.89 Other abnormalities of breathing; J98.4 Other disorders of lung
CPT/HCPCS: 99213

== ENCOUNTER 2023-09-20 13:45 | Outpatient (AMB) | payer MEDICARE, SELFPAY ==
[2023-09-20 13:55] LABS: Prothrombin Time Whole Bld POC 30.9 sec (11.1-13.5); ~PT, ~INR - Anti Coag Clinic 2.6 (0.9-1.1)
--- NOTE | 2023-09-20 14:00 | MHC.OFFVISCO ---
Intake Intake Visit Reasons: Anticoagulation Allergies albuterol Adverse Reaction (Intermediate, Verified 09/20/23 13:48) Palpitations amoxicillin [From Augmentin] Adverse Reaction (Intermediate, Verified 09/20/23 13:48) Nausea and Vomiting, dizziness clavulanic acid [From Augmentin] Adverse Reaction (Intermediate, Verified 09/20/23 13:48) Nausea and Vomiting, dizziness Medication List - Last Reconciled 09/20/23 by Chaya Yarbrough RN acetaminophen 1,000 mg PO Q6H PRN acetazolamide 250 mg PO DAILY 30 days atorvastatin 20 mg PO DAILY azithromycin 250 mg PO .MWF 90 days diltiazem HCl CD 120 mg PO DAILY docusate sodium 200 mg PO DAILY flecainide 50 mg PO BID fluticasone propion-salmeterol 500-50 mcg/dose (Wixela Inhub) 1 inh inhalation BID 90 days furosemide 40 mg PO BID levalbuterol HCl 1.25 mg (0.5 mL) inhalation RQ4H WHILE AWAKE 90 days multivitamin 1 tab PO DAILY potassium chloride ER 10 mEq PO DAILY prednisone 5 mg PO 4XW 30 days sennosides (senna) 25.8 mg PO BEDTIME warfarin 5 mg See Protocol PO SUMOWEFR@1800 warfarin 7.5 mg See Protocol PO TUTHSA@1800 Nursing Note INR: 2.6 in therapeutic range Medications and supplements reviewed No changes in health, diet, medications, or supplements, Denies any signs and symptoms of bleeding or bruising or clotting. Bleeding, bruising, clotting discussed Nutritional guidance given Dose: 5MG X 3 DAYS/ 7.5MG X 4 DAYS F/U INR: 1 MONTH Patient verbalizes understanding of instructions given Anti-Coag Initial Assessment Social Hx Patient Tobacco Use Status: Former Tobacco user alcohol intake: current Alcohol intake frequency: a few times a week Coding Level of Care Code Est Patient Level 1 Diagnoses Current use of anticoagulant therapy Z79.01 Assessment & Plan Assessment & Plan (1) Current use of anticoagulant therapy: Code(s): Z79.01 - long-term (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
== END 2023-09-20 14:02 | disposition home or self-care (01) ==
LOC: HO.ACS 13:45
PROVIDERS: PCP Internal Medicine; Visit Provider Internal Medicine
DX: Z79.01 Long term (current) use of anticoagulants (principal)

== ENCOUNTER → 2023-09-20 13:45 | Outpatient (BNVA) | payer MEDICARE, SELFPAY | PROVIDERS: PCP Internal Medicine; Visit Provider Internal Medicine | DX: I48.19 Other persistent atrial fibrillation (principal); Z86.718 Personal history of other venous thrombosis and embolism; Z79.01 Long term (current) use of anticoagulants; Z51.81 Encounter for therapeutic drug level monitoring | CPT/HCPCS: 85610; 99211 ==

== ENCOUNTER 2023-10-18 13:21 | Outpatient (AMB) | payer MEDICARE, SELFPAY ==
[2023-10-18 13:47] LABS: ~PT, ~INR - Anti Coag Clinic 2.3 (0.9-1.1)
--- NOTE | 2023-10-18 13:53 | MHC.OFFVISCO ---
Intake Intake Visit Reasons: Anticoagulation Allergies albuterol Adverse Reaction (Intermediate, Verified 10/18/23 13:41) Palpitations amoxicillin [From Augmentin] Adverse Reaction (Intermediate, Verified 10/18/23 13:41) Nausea and Vomiting, dizziness clavulanic acid [From Augmentin] Adverse Reaction (Intermediate, Verified 10/18/23 13:41) Nausea and Vomiting, dizziness Medication List - Last Reconciled 10/18/23 by Chaya Yarbrough RN acetaminophen 1,000 mg PO Q6H PRN acetazolamide 250 mg PO DAILY 30 days atorvastatin 20 mg PO DAILY azithromycin 250 mg PO .MWF 90 days diltiazem HCl CD 120 mg PO DAILY docusate sodium 200 mg PO DAILY flecainide 50 mg PO BID fluticasone propion-salmeterol 500-50 mcg/dose (Wixela Inhub) 1 inh inhalation BID 90 days furosemide 40 mg PO BID levalbuterol HCl 1.25 mg (0.5 mL) inhalation RQ4H WHILE AWAKE 90 days multivitamin 1 tab PO DAILY potassium chloride ER 10 mEq PO DAILY prednisone 5 mg PO 4XW 30 days sennosides (senna) 25.8 mg PO BEDTIME warfarin 5 mg See Protocol PO SUMOWEFR@1800 warfarin 7.5 mg See Protocol PO TUTHSA@1800 Nursing Note INR: 2.3 in therapeutic range Medications and supplements reviewed No changes in health, diet, medications, or supplements, Denies any signs and symptoms of bleeding or bruising or clotting. Bleeding, bruising, clotting discussed Nutritional guidance given Dose: 5MG X 3 DAYS/ 7.5MG X 4 DAYS F/U INR: 1 MONTH Patient verbalizes understanding of instructions given Anti-Coag Initial Assessment Social Hx Patient Tobacco Use Status: Former Tobacco user alcohol intake: current Alcohol intake frequency: a few times a week Coding Level of Care Code Est Patient Level 1 Diagnoses Current use of anticoagulant therapy Z79.01 Assessment & Plan Assessment & Plan (1) Current use of anticoagulant therapy: Code(s): Z79.01 - half-way (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
== END 2023-10-18 13:54 | disposition home or self-care (01) ==
LOC: HO.ACS 13:21
PROVIDERS: PCP Internal Medicine; Visit Provider Internal Medicine
DX: Z79.01 Long term (current) use of anticoagulants (principal)

== ENCOUNTER → 2023-10-18 13:21 | Outpatient (BNVA) | payer MEDICARE, SELFPAY | PROVIDERS: PCP Internal Medicine; Visit Provider Internal Medicine | DX: I48.19 Other persistent atrial fibrillation (principal); Z86.718 Personal history of other venous thrombosis and embolism; Z79.01 Long term (current) use of anticoagulants; Z51.81 Encounter for therapeutic drug level monitoring | CPT/HCPCS: 85610; 99211 ==

== ENCOUNTER 2023-11-15 13:35 | Outpatient (AMB) | payer MEDICARE, SELFPAY ==
--- NOTE | 2023-11-15 14:18 | MHC.OFFVISCO ---
Intake Intake Visit Reasons: Anticoagulation Allergies albuterol Adverse Reaction (Intermediate, Verified 11/15/23 13:37) Palpitations amoxicillin [From Augmentin] Adverse Reaction (Intermediate, Verified 11/15/23 13:37) Nausea and Vomiting, dizziness clavulanic acid [From Augmentin] Adverse Reaction (Intermediate, Verified 11/15/23 13:37) Nausea and Vomiting, dizziness Medication List - Last Reconciled 11/15/23 by Whitney Clark RN acetaminophen 1,000 mg PO Q6H PRN acetazolamide 250 mg PO DAILY 30 days atorvastatin 20 mg PO DAILY azithromycin 250 mg PO .MWF 90 days diltiazem HCl CD 120 mg PO DAILY docusate sodium 200 mg PO DAILY flecainide 50 mg PO BID fluticasone propion-salmeterol 500-50 mcg/dose (Wixela Inhub) 1 inh inhalation BID 90 days furosemide 40 mg PO BID levalbuterol HCl 1.25 mg (0.5 mL) inhalation RQ4H WHILE AWAKE 90 days multivitamin 1 tab PO DAILY potassium chloride ER 10 mEq PO DAILY prednisone 5 mg PO 4XW 30 days sennosides (senna) 25.8 mg PO BEDTIME warfarin 5 mg See Protocol PO SUMOWEFR@1800 warfarin 7.5 mg See Protocol PO TUTHSA@1800 Nursing Note NO CP,SOB,DIET/MED CHANGES,FALLS OR SX OF BLEEDING. DECREASE DOSE SLIGHTLY THEN RESUME USUAL DOSE AND FOLLOW-UP IN 4 WEEKS. GOOD UNDERTANDING OF DOSING INSTR. Anti-Coag Initial Assessment Social Hx Patient Tobacco Use Status: Former Tobacco user alcohol intake: current Alcohol intake frequency: a few times a week Coding Level of Care Code Est Patient Level 1 Diagnoses Current use of anticoagulant therapy Z79.01 Results AMB INR Fingerstick AMB INR Fingerstick 3.5 Last Edit by Whitney Clark RN on 11/15/23 13:44 Assessment & Plan Assessment & Plan (1) Current use of anticoagulant therapy: Code(s): Z79.01 - 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
[2023-11-15 14:40] LABS: Prothrombin Time Whole Bld POC 41.9 sec (11.1-13.5); ~PT, ~INR - Anti Coag Clinic 3.5 (0.9-1.1)
== END 2023-11-15 14:20 | disposition home or self-care (01) ==
LOC: HO.ACS 13:35
PROVIDERS: PCP Internal Medicine; Visit Provider Internal Medicine
DX: Z79.01 Long term (current) use of anticoagulants (principal)

== ENCOUNTER → 2023-11-15 13:35 | Outpatient (BNVA) | payer MEDICARE, SELFPAY | PROVIDERS: PCP Internal Medicine; Visit Provider Internal Medicine | DX: I48.19 Other persistent atrial fibrillation (principal); Z86.718 Personal history of other venous thrombosis and embolism; Z79.01 Long term (current) use of anticoagulants; Z51.81 Encounter for therapeutic drug level monitoring | CPT/HCPCS: 85610; 99211 ==

== ENCOUNTER 2023-12-13 13:18 | Outpatient (AMB) | payer MEDICARE, SELFPAY ==
[2023-12-13 13:59] LABS: Prothrombin Time Whole Bld POC 35.8 sec (11.1-13.5)
--- NOTE | 2023-12-13 14:13 | MHC.OFFVISCO ---
Intake Intake Visit Reasons: Anticoagulation Allergies albuterol Adverse Reaction (Intermediate, Verified 12/13/23 13:47) Palpitations amoxicillin [From Augmentin] Adverse Reaction (Intermediate, Verified 12/13/23 13:47) Nausea and Vomiting, dizziness clavulanic acid [From Augmentin] Adverse Reaction (Intermediate, Verified 12/13/23 13:47) Nausea and Vomiting, dizziness Medication List - Last Reconciled 12/13/23 by Lottie Avila RN acetaminophen 1,000 mg PO Q6H PRN acetazolamide 250 mg PO DAILY 30 days atorvastatin 20 mg PO DAILY azithromycin 250 mg PO .MWF 90 days diltiazem HCl CD 120 mg PO DAILY docusate sodium 200 mg PO DAILY flecainide 50 mg PO BID fluticasone propion-salmeterol 500-50 mcg/dose (Wixela Inhub) 1 inh inhalation BID 90 days furosemide 40 mg PO BID levalbuterol HCl 1.25 mg (0.5 mL) inhalation RQ4H WHILE AWAKE 90 days multivitamin 1 tab PO DAILY potassium chloride ER 10 mEq PO DAILY prednisone 5 mg PO 4XW 30 days sennosides (senna) 25.8 mg PO BEDTIME warfarin 5 mg See Protocol PO SUMOWEFR@1800 warfarin 7.5 mg See Protocol PO TUTHSA@1800 Nursing Note INR: 3.0 in therapeutic range of 2-3 Medications and supplements reviewed No changes in health, diet, medications, or supplements, Denies any signs and symptoms of bleeding or bruising or clotting. Bleeding, bruising, clotting discussed Nutritional guidance given Dose: 7.5mg X 4 days and 5mg X 3 days F/U INR: 4 weeks Patient verbalizes understanding of instructions given Anti-Coag Initial Assessment Social Hx Patient Tobacco Use Status: Former Tobacco user alcohol intake: current Alcohol intake frequency: a few times a week Coding Level of Care Code Est Patient Level 1 Diagnoses Current use of anticoagulant therapy Z79.01 Results AMB INR Fingerstick AMB INR Fingerstick 3.0 Last Edit by Lottie Avila RN on 12/13/23 14:05 interface delay Assessment & Plan Assessment & Plan (1) Current use of anticoagulant therapy: Code(s): 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
== END 2023-12-13 14:14 | disposition home or self-care (01) ==
LOC: HO.ACS 13:18
PROVIDERS: PCP Internal Medicine; Visit Provider Internal Medicine
DX: Z79.01 Long term (current) use of anticoagulants (principal)

== ENCOUNTER → 2023-12-13 13:18 | Outpatient (BNVA) | payer MEDICARE, SELFPAY | PROVIDERS: PCP Internal Medicine; Visit Provider Internal Medicine | DX: I48.19 Other persistent atrial fibrillation (principal); Z86.718 Personal history of other venous thrombosis and embolism; Z79.01 Long term (current) use of anticoagulants; Z51.81 Encounter for therapeutic drug level monitoring | CPT/HCPCS: 85610; 99211 ==

== ENCOUNTER 2023-12-19 14:48 | Outpatient (REF) | payer MEDICARE, SELFPAY ==
[2023-12-19 17:18] LABS: INTERNATIONAL NORM RATIO 3.3 (0.9-1.1)
[2023-12-19 17:29] LABS: Anion Gap 9 (12-20); Blood Urea Nitrogen 21 mg/dL (9-16); Calcium 9.2 mg/dL (8.4-10.2); Carbon Dioxide 27 mmol/L (22-29); Chloride 110 mmol/L (96-108); Estimated Glomerular Filt Rate > 60; Glucose Random 99 mg/dL (60-115); Potassium 4.3 mmol/L (3.3-5.1); Sodium 142 mmol/L (135-145)
[2023-12-19 17:35] LABS: B Type Natriuretic Peptide 74 pg/mL (<100)
== END 2023-12-19 14:49 | disposition home or self-care (01) ==
LOC: HO.LAB 14:48
PROVIDERS: PCP Internal Medicine; Visit Provider Internal Medicine Cardiovascular Disease
DX: I48.0 Paroxysmal atrial fibrillation (principal); Z79.01 Long term (current) use of anticoagulants; I50.30 Unspecified diastolic (congestive) heart failure; I48.92 Unspecified atrial flutter
CPT/HCPCS: 36415; 80048; 83880; 85610; 93005; 99212

== ENCOUNTER 2023-12-19 14:48 | Outpatient (AMB) | payer MEDICARE, SELFPAY ==
[2023-12-19 15:11] VITALS: BMI 36.0
--- NOTE | 2023-12-19 15:11 | MHC.OFFVIS ---
Vital Signs 12/19/23 15:11 Height 5 ft 9 in Weight 244 lb BMI 36.0 Intake Visit Reasons: ekg Intake Note: pt came in for ekg/ with some shortness of breath that started yesterday. 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: No Accompanied by: Self / Same As Patient Allergies albuterol Adverse Reaction (Intermediate, Verified 12/13/23 13:47) Palpitations amoxicillin [From Augmentin] Adverse Reaction (Intermediate, Verified 12/13/23 13:47) Nausea and Vomiting, dizziness clavulanic acid [From Augmentin] Adverse Reaction (Intermediate, Verified 12/13/23 13:47) Nausea and Vomiting, dizziness Medication List - Last Reconciled 12/19/23 by Justin Nava MD acetaminophen 1,000 mg PO Q6H PRN atorvastatin 20 mg PO DAILY azithromycin 250 mg PO .MWF 90 days diltiazem HCl CD 120 mg PO DAILY docusate sodium 200 mg PO DAILY flecainide 50 mg PO BID fluticasone propion-salmeterol 500-50 mcg/dose (Wixela Inhub) 1 inh inhalation BID 90 days furosemide 40 mg PO BID levalbuterol HCl 1.25 mg (0.5 mL) inhalation RQ4H WHILE AWAKE 90 days multivitamin 1 tab PO DAILY potassium chloride ER 10 mEq PO DAILY prednisone 5 mg PO 4XW 30 days sennosides (senna) 25.8 mg PO BEDTIME warfarin 7.5 mg See Protocol PO SUTUTHSA@1800 warfarin 5 mg See Protocol PO MOWEFR@1800 HPI Comments Details: Jay came in today for routine 6 monthly EKG on flecainide therapy. Although was noted to be in recurrent atrial flutter with controlled ventricular response. He said over the last few days increasing symptoms of shortness of breath and wheezing and also having increased leg edema. Also noticed some abdominal distension. He thought this was probably related to COPD and has been using his nebulizer more regularly and says today's wheezing is little bit improved. He denies any fast heart rate or palpitations. No lightheadedness, syncope. No recent change in his health. No recent bleeding issues or neurologic events. His INRs over the last 3 times on a monthly basis had been above 2. PFSH Medical History Hypoventilation Restrictive airway disease (HFpEF) heart failure with preserved ejection fraction CHF exacerbation Cough Paroxysmal atrial fibrillation Lymphedema of both lower extremities DEREK on CPAP Obesity (BMI 35.0-39.9 without comorbidity) COPD (chronic obstructive pulmonary disease) Varicose veins of right lower extremity with inflammation Surgical History History of appendectomy Family History Father No problems noted. Mother No problems noted. Sister No problems noted. Sister No problems noted. Son No problems noted. Daughter No problems noted. Social History Household Members: Spouse Housing: House Do you presently have visiting nurse or other home services: No Alcohol intake: current Alcohol intake frequency: a few times a week Alcohol type: beer Comment: PT USES CALL LIGHT APPROPRIATELY Patient Tobacco Use Status: Former Tobacco user service: Yes Current occupational status: retired Review of Systems Const Denies chills, Denies fatigue, Denies fever(s), Denies frequent falls, Denies weakness, Denies weight gain and Denies weight loss ENT Denies dizziness Card Denies chest pain, Denies leg edema, Denies lightheadedness, Denies palpitations, Denies dyspnea and Denies dyspnea on exertion Resp Denies cough, Denies dyspnea and Denies dyspnea on exertion GI Denies hematochezia Musc Denies abnormal gait, Denies muscle weakness, Denies numbness, Denies radiating pain into limb and Denies tingling Neuro Denies abnormal gait, Denies dizziness, Denies frequent falls, Denies numbness, Denies tingling and Denies weakness Endo Denies fatigue and Denies palpitations Physical Exam Vital Signs: BMI result Body Mass Index 36.0 Const General: cooperative, comfortable, no acute distress and alert Nutritional Appearance: obese Orientation/consciousness: patient oriented x3 Limitations: no limitations Neck Neck: Yes trachea midline, Yes supple and Yes JVD Chest Chest palpation & inspection: normal inspection of the chest Resp Effort & Inspection: normal respiratory effort Auscultation: clear to auscultation bilaterally and diminished lung sounds (Left greater than right) Cardio Jugular venous distension: no JVD Palpation: normal PMI Rate: regular rate Rhythm: abnormal rhythm irregularly irregular Heart sounds: S1 normal heart sound present, S2 normal heart sound present, Murmur heart sound present systolic holo and at the left sternal border and Other heart sounds present (S4 present) Skin General skin exam: no rashes or lesions noted Neuro General: patient oriented x3 and no focal motor deficits Extrem General: No cyanosis, No edema and Yes other (Bilateral lymphedema, right greater than left) Psych Appearance: grossly normal Office Procedures EKG Details: EKG shows atrial flutter with controlled ventricular response with variable block with right bundle-branch block and left anterior fascicular block 31777-[id number], Complete Assessment & Plan Assessment & Plan (1) Atrial flutter: Code(s): I48.92 - Unspecified atrial flutter Category: Medical Plan: Recurrent atrial flutter with symptoms of loss of AV synchrony with heart failure exacerbation. Clinically rate is adequately controlled. He does have significant underlying cardiac issues including severe atrial enlargement in the left side that causes him to have possible recurrence of his atrial flutter. He has done well for many years in rhythm control approach will continue pursue the plan for rhythm control approach. At this point time will bump up his flecainide to 100 mg b.i.d. and pursue synchronized cardioversion in the coming few days to maintain rhythm. If flecainide is ineffective in maintaining rhythm will switch him to an alternative oral antiarrhythmic drug most likely amiodarone. This was discussed with him. Continue warfarin therapy which has remained therapeutic over the last few months. Will recheck his INR prior to cardioversion. Continue concomitant Cardizem therapy. Management was discussed with him. Risks and benefits of synchronized cardioversion were discussed. (2) (HFpEF) heart failure with preserved ejection fraction: Comment: PATIENT ALSO HAS PAROXYSMAL ATRIAL FIBRILLATION AND, CONGESTIVE HEART FAILURE, CONTRIBUTING TO HIS INCREASED SHORTNESS OF BREATH. CURRENTLY VERY STABLE AND CONTROLLED. Code(s): I50.30 - Unspecified diastolic (congestive) heart failure Category: Medical Plan: Heart failure preserved ejection fraction has remained stable on current diuretic dose him with rhythm control approach. Noticed to have increased symptoms suggestive of heart failure and today clinically has fluid overload. Will bump up his Lasix to 80 mg the morning and 40 mg at noon time. Pursue rhythm control approach as above. Further treatment based on the findings of treatment response as well as management of atrial flutter. Advised to seek emergency care if he was sudden increase in his shortness of breath. Will follow up in the clinic in 4-6 weeks time after cardioversion. 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 B Type Natriuretic Peptide Today I50.30 - Unspecified diastolic (congestive) heart failure Medications: New flecainide 100 mg PO Q12H 90 tabs 3RF Changed From furosemide 40 mg PO BID To furosemide 80mg (2 tablets) in the AM, 40 mg (1 tablet) in the PM 80 mg (2 x 40 mg) PO QAM 90 tabs 0RF Discontinued flecainide Discontinued Reason: Doctor's Order 50 mg PO BID 160 tabs 3RF Coding Level of Care Code Est Pt Level 4 (68003) Complex EM visit Add On G2211 Diagnoses Atrial flutter I48.92 (HFpEF) heart failure with preserved ejection fraction I50.30 CPT Codes EKG - CPT: 87588-[id number], Complete ([id number])
== END 2023-12-19 16:00 | disposition home or self-care (01) ==
PROVIDERS: PCP Internal Medicine; Visit Provider Internal Medicine Cardiovascular Disease
DX: I48.92 Unspecified atrial flutter (principal); I50.30 Unspecified diastolic (congestive) heart failure
CPT/HCPCS: 93010; 99214; G2211

== ENCOUNTER 2024-01-01 12:06 | Day surgery (SDC) | payer MEDICARE, SELFPAY ==
--- NOTE | 2023-12-31 10:31 | HO.ANESPROP2 ---
Documented by User: Donna Noel NP 12/31/23 10:35 HPI - Anesthesia Eval Consult details Narrative: 78yo M for Cardioversion Coumadin for afib PMFSH Active Problems Active Problems: All Active Problems Atrial flutter (Acute) Mitral regurgitation (Acute) Murmur (Acute) Hypoventilation (Acute) Restrictive airway disease (Acute) (HFpEF) heart failure with preserved ejection fraction (Acute) Acute on chronic respiratory failure with hypoxemia (Acute) Enlarged thoracic aorta (Acute) Pneumonia (Acute) Cough (Acute) Lymphedema (Acute) Acute respiratory failure with hypoxia (Acute) Varicose veins of right lower extremity with inflammation (Acute) SOB (shortness of breath) on exertion (Acute) Paroxysmal atrial fibrillation (Acute) Obesity (BMI 35.0-39.9 without comorbidity) (Acute) COPD (chronic obstructive pulmonary disease) (Acute) Current use of anticoagulant therapy (Acute) Past Medical History Medical History Hypoventilation Restrictive airway disease (HFpEF) heart failure with preserved ejection fraction CHF exacerbation Cough Paroxysmal atrial fibrillation Lymphedema of both lower extremities DEREK on CPAP Obesity (BMI 35.0-39.9 without comorbidity) COPD (chronic obstructive pulmonary disease) Varicose veins of right lower extremity with inflammation Family History Family History Father No problems noted. Mother No problems noted. Sister No problems noted. Sister No problems noted. Son No problems noted. Daughter No problems noted. Surgical History Surgical History History of appendectomy Social History Social History Household Members: Spouse Housing: House Are you a primary medical care administrator to a significant other at home: No Do you presently have visiting nurse or other home services: No Alcohol intake: current Alcohol intake frequency: holidays/special occasions only Alcohol type: beer Comment: PT USES CALL LIGHT APPROPRIATELY Patient Tobacco Use Status: Former Tobacco user Use of substances other than those prescribed or required for medical reasons: No Have you been hit, kicked, punched, or otherwise hurt by someone within the past year? If so, by whom?: No Are you DNR?: No Advance Directives: No Advance Directives Information Provided: Yes Recently lost weight without trying: No service: Yes Current occupational status: retired Meds Allergies Allergy/AdvReac Type Severity Reaction Status Date / Time albuterol AdvReac Intermediate Palpitation Verified 12/13/23 13:47 s amoxicillin [From Augmentin] AdvReac Intermediate Nausea and Verified 12/13/23 13:47 Vomiting, dizziness clavulanic acid AdvReac Intermediate Nausea and Verified 12/13/23 13:47 [From Augmentin] Vomiting, dizziness Home Medications ?Medication ?Instructions ?Recorded ?Confirmed ?Last Taken ?Type atorvastatin 20 mg tablet 20 mg PO DAILY 12/08/19 12/19/23 09/27/22 History diltiazem HCl 120 mg 120 mg PO DAILY 12/08/19 12/19/23 09/27/22 History capsule,extended release 24 hr docusate sodium 100 mg capsule 200 mg PO DAILY 12/08/19 12/19/23 09/27/22 History sennosides 8.6 mg capsule (senna) 25.8 mg PO BEDTIME 12/08/19 12/19/23 09/27/22 History multivitamin 1 tab PO DAILY 06/15/21 12/19/23 09/27/22 History acetaminophen 500 mg tablet 1,000 mg PO Q6H PRN Back Pain 12/17/21 12/19/23 09/27/22 History potassium chloride 10 mEq 10 meq PO DAILY 10/03/22 12/19/23 Unknown History tablet,extended release(part/cryst) warfarin 5 mg tablet 5 mg PO MOWEFR@1800 12/19/23 12/19/23 Unknown History warfarin 5 mg tablet 7.5 mg PO SUTUTHSA@1800 12/19/23 12/19/23 Unknown History Exam Pertinent Lab Results Pertinent Lab Results: Laboratory Tests 09/28/22 12/19/23 06:32 16:10 WBC 11.9 H Hgb 12.9 L Hct 39.3 L Plt Count 145 L Sodium 142 Potassium 4.3 Chloride 110 H Carbon Dioxide 27 BUN 21 H Creatinine 0.79 Narrative Narrative: EKG 12/2023 Details: EKG shows atrial flutter with controlled ventricular response with variable block with right bundle-branch block and left anterior fascicular block ECHO 06/2023 Conclusions: - The left ventricular systolic function is normal. The calculated ejection fraction is 58% by biplane method. - The left atrium is severely dilated. - Mitral valve is not well-visualized. Eccentric mitral regurgitation adjacent to the anterior mitral leaflet. Severity difficult to assess. Possibly moderate. - Liver cyst(7x8cm) noted; consider dedicated ultrasound if clinically indicated. Assessment and Plan Assessment Anesthesia Assessment: Chart Reviewed Documented by User: Sheila Moreira MD 01/01/24 12:56 PMF Past Medical History Medical History Hypoventilation Restrictive airway disease (HFpEF) heart failure with preserved ejection fraction CHF exacerbation Cough Paroxysmal atrial fibrillation Lymphedema of both lower extremities DEREK on CPAP Obesity (BMI 35.0-39.9 without comorbidity) COPD (chronic obstructive pulmonary disease) Varicose veins of right lower extremity with inflammation Family History Family History Father No problems noted. Mother No problems noted. Sister No problems noted. Sister No problems noted. Son No problems noted. Daughter No problems noted. Family history of problems with anesthesia: No Surgical History Surgical History History of appendectomy History of Problems with Anesthesia: No Social History Social History Household Members: Spouse Housing: House Are you a primary medical care administrator to a significant other at home: No Do you presently have visiting nurse or other home services: No Alcohol intake: current Alcohol intake frequency: holidays/special occasions only Alcohol type: beer Comment: PT USES CALL LIGHT APPROPRIATELY Patient Tobacco Use Status: Former Tobacco user Use of substances other than those prescribed or required for medical reasons: No Have you been hit, kicked, punched, or otherwise hurt by someone within the past year? If so, by whom?: No Are you DNR?: No Advance Directives: No Advance Directives Information Provided: Yes Recently lost weight without trying: No service: Yes Current occupational status: retired Meds Allergies Allergy/AdvReac Type Severity Reaction Status Date / Time albuterol AdvReac Intermediate Palpitation Verified 12/13/23 13:47 s amoxicillin [From Augmentin] AdvReac Intermediate Nausea and Verified 12/13/23 13:47 Vomiting, dizziness clavulanic acid AdvReac Intermediate Nausea and Verified 12/13/23 13:47 [From Augmentin] Vomiting, dizziness Home Medications ?Medication ?Instructions ?Recorded ?Confirmed ?Last Taken ?Type atorvastatin 20 mg tablet 20 mg PO DAILY 12/08/19 12/19/23 09/27/22 History diltiazem HCl 120 mg 120 mg PO DAILY 12/08/19 12/19/23 09/27/22 History capsule,extended release 24 hr docusate sodium 100 mg capsule 200 mg PO DAILY 12/08/19 12/19/23 09/27/22 History sennosides 8.6 mg capsule (senna) 25.8 mg PO BEDTIME 12/08/19 12/19/23 09/27/22 History multivitamin 1 tab PO DAILY 06/15/21 12/19/23 09/27/22 History acetaminophen 500 mg tablet 1,000 mg PO Q6H PRN Back Pain 12/17/21 12/19/23 09/27/22 History potassium chloride 10 mEq 10 meq PO DAILY 10/03/22 12/19/23 Unknown History tablet,extended release(part/cryst) warfarin 5 mg tablet 5 mg PO MOWEFR@1800 12/19/23 12/19/23 Unknown History warfarin 5 mg tablet 7.5 mg PO SUTUTHSA@1800 12/19/23 12/19/23 Unknown History Exam Airway Mallampati Class: III TM Dist: >3cm Neck ROM: Full Partial: Upper and Lower Assessment and Plan Assessment Anesthesia Assessment: Anesthesia Plan Discussed Final Anesthetic Review Family History of Problems with Anesthesia: No History of Problems with Anesthesia: No NPO: Yes ASA Class: III Final Preanesthetic Review: No Changes in Pt Med Stat, Meds/Allgs Chart Reviewed, Consent Obtained/Reviewed, Anes Risks/Benef Reviewed and DNR Form (If Appl.) Patient Risk: Intermediate Procedure Risk: Low Anesthetic Plan Anesthetic Plan: GA Disposition: Standard PACU
[2024-01-01 12:41] VITALS: BP 165/85; PULSE 101; RESP 16; TEMP 36.4; O2SAT 98; BMI 36.9
[2024-01-01] MEDS: Lactated Ringers 1,000 ML 50 ML IVCONT (12:53)
[2024-01-01 13:46] LABS: Prothrombin Time Whole Bld POC 41.8 sec (11.1-13.5); ~PT, ~INR - Anti Coag Clinic 3.5 (0.9-1.1)
--- NOTE | 2024-01-01 13:56 | MHC.SHP ---
Pre-Procedural Eval Section A - 24 Hr Update-Section A only Date of Service: 01/01/24 The patient is an INPATIENT: No Changes since office visit: Yes Patient answered all questions; No Cold of Flu in the past 2 weeks, No New Medical Problems and No Changes in Medication The patient has been examined within 24 hours of the surgical procedure. The History & Physical has been completed within 30 days and I have reviewed it.: Yes Section B - Complete if H&P > 30 days Chief Complaint: Unspecified atrial flutter Allergies: Allergies Allergy/AdvReac Type Severity Reaction Status Date / Time albuterol AdvReac Intermediate Palpitation Verified 12/13/23 13:47 s amoxicillin [From Augmentin] AdvReac Intermediate Nausea and Verified 12/13/23 13:47 Vomiting, dizziness clavulanic acid AdvReac Intermediate Nausea and Verified 12/13/23 13:47 [From Augmentin] Vomiting, dizziness Plan I have reviewed the history and physical and performed a pertinent physical examination on my patient. No changes have occurred unless specified. Time Spent With Patient Time: Total time managing care of this patient today ____ minutes.
--- NOTE | 2024-01-01 14:02 | ECG_ITS ---
Test Reason : post op Blood Pressure : / mmHG Vent. Rate : 075 BPM Atrial Rate : 075 BPM P-R Int : 248 ms QRS Dur : 172 ms QT Int : 454 ms P-R-T Axes : 025 006 014 degrees QTc Int : 506 ms Sinus rhythm with 1st degree A-V block Right bundle branch block Abnormal ECG When compared with ECG of 27-SEP-2022 20:48, QRS duration has increased Referred By: Justin Nava Electronically Signed By:JUSTIN NAVA MD
[2024-01-01 14:07] VITALS: BP 131/65; PULSE 79; RESP 20; TEMP 36.4; O2SAT 94
[2024-01-01 14:12] VITALS: BP 107/63; PULSE 76; RESP 21; O2SAT 92
[2024-01-01 14:17] VITALS: BP 113/66; PULSE 78; RESP 20; O2SAT 96
[2024-01-01 14:22] VITALS: BP 113/66; PULSE 79; RESP 16; O2SAT 98
[2024-01-01 14:38] VITALS: BP 114/65; PULSE 80; RESP 17; TEMP 36.4; O2SAT 97
--- NOTE | 2024-01-01 14:58 | HO.CARDIVERS ---
Cardioversion Procedure Note Cardioversion Date of Procedure: 01/01/2024 Ordering Provider: Justin Nava Performing Provider: Justin Nava Indication for Procedure: Symptomatic recurrent atrial flutter with heart failure Pre-Op Diagnosis: Same Post-Op Diagnosis: Normal sinus rhythm Performed with Transesophageal Echo: No Consent: Verbal and Written consent was obtained from the patient before starting confirming oral anticoagulation use and confirming INR of 3.5 was brought to the PACU. The patient was made aware of the risk of synchronized cardioversion including benefits and alternatives Procedure: After consent obtained, cardioversion pads were attached in anteroposterior configuration and the patient was sedated by the anesthesia team. Once adequate sedation achieved, patient was delivered 200 joules of biphasic synchronized energy in anteroposterior configuration Complications: None Impression: Successful conversion to sinus rhythm Recommendations: 1. 12 lead EKG 2. Continue current flecainide as well as metoprolol 3. Continue warfarin therapy 4. Follow up in the office after Holter
== END 2024-01-01 14:51 | disposition home or self-care (01) ==
PROVIDERS: PCP Internal Medicine; Visit Provider Internal Medicine Cardiovascular Disease
PROC: 5A2204Z Restoration of Cardiac Rhythm, Single (ICD-10-PCS; principal; 2024-01-01 13:50)
DX: I48.92 Unspecified atrial flutter (principal); I50.30 Unspecified diastolic (congestive) heart failure; Z79.01 Long term (current) use of anticoagulants; J44.9 Chronic obstructive pulmonary disease, unspecified; G47.33 Obstructive sleep apnea (adult) (pediatric); Z99.89 Dependence on other enabling machines and devices; Z79.51 Long term (current) use of inhaled steroids; Z79.899 Other long term (current) drug therapy; Z88.1 Allergy status to other antibiotic agents; Z88.8 Allergy status to other drugs, medicaments and biological substances; Z87.891 Personal history of nicotine dependence
CPT/HCPCS: 85610; 92960; 93005; J2003; J2704

== ENCOUNTER → 2024-01-01 12:06 | Outpatient (BNV) | payer MEDICARE, SELFPAY | PROVIDERS: PCP Internal Medicine; Visit Provider Internal Medicine Cardiovascular Disease | DX: I48.92 Unspecified atrial flutter (principal) | CPT/HCPCS: 92960; 93010 ==

== ENCOUNTER 2024-01-02 13:51 | Outpatient (AMB) | payer MEDICARE, SELFPAY ==
[2024-01-02 14:01] LABS: Prothrombin Time Whole Bld POC 33.9 sec (11.1-13.5); ~PT, ~INR - Anti Coag Clinic 2.8 (0.9-1.1)
--- NOTE | 2024-01-02 14:05 | MHC.OFFVISCO ---
Intake Intake Visit Reasons: Anticoagulation Allergies albuterol Adverse Reaction (Intermediate, Verified 12/13/23 13:47) Palpitations amoxicillin [From Augmentin] Adverse Reaction (Intermediate, Verified 12/13/23 13:47) Nausea and Vomiting, dizziness clavulanic acid [From Augmentin] Adverse Reaction (Intermediate, Verified 12/13/23 13:47) Nausea and Vomiting, dizziness Nursing Note INR: 2.8 in therapeutic range of 2-3 Pt S/P Cardioversion yesterday. INR pre cardioversion was 3.5 Pt stated he had broccoli yesterday Medications and supplements reviewed. No changes No changes in health, diet, medications, or supplements, Denies any signs and symptoms of bleeding or bruising or clotting. Bleeding, bruising, clotting discussed Nutritional guidance given Dose: cont same dose of 7.5mg X 4 days and 5mg X 3 days F/U INR: 2 weeks Patient verbalizes understanding of instructions given Anti-Coag Initial Assessment Social Hx Patient Tobacco Use Status: Former Tobacco user alcohol intake: current Alcohol intake frequency: holidays/special occasions only Coding Level of Care Code Est Patient Level 1 Diagnoses Current use of anticoagulant therapy Z79.01 Results AMB INR Fingerstick AMB INR Fingerstick 2.8 Last Edit by Lottie Avila RN on 01/02/24 14:02 interface delay Assessment & Plan Assessment & Plan (1) Current use of anticoagulant therapy: Code(s): Z79.01 - intermediate (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
== END 2024-01-02 14:08 | disposition home or self-care (01) ==
LOC: HO.ACS 13:51
PROVIDERS: PCP Internal Medicine; Visit Provider Internal Medicine
DX: Z79.01 Long term (current) use of anticoagulants (principal)

== ENCOUNTER → 2024-01-02 13:51 | Outpatient (BNVA) | payer MEDICARE, SELFPAY | PROVIDERS: PCP Internal Medicine; Visit Provider Internal Medicine | DX: I48.19 Other persistent atrial fibrillation (principal); Z86.718 Personal history of other venous thrombosis and embolism; Z79.01 Long term (current) use of anticoagulants; Z51.81 Encounter for therapeutic drug level monitoring | CPT/HCPCS: 85610; 99211 ==

== ENCOUNTER 2024-01-13 13:51 | Outpatient (AMB) | payer MEDICARE, SELFPAY ==
[2024-01-13 13:58] LABS: Prothrombin Time Whole Bld POC 41.6 sec (11.1-13.5); ~PT, ~INR - Anti Coag Clinic 3.5 (0.9-1.1)
--- NOTE | 2024-01-13 14:06 | MHC.OFFVISCO ---
Intake Intake Visit Reasons: Anticoagulation Allergies albuterol Adverse Reaction (Intermediate, Verified 01/13/24 13:52) Palpitations amoxicillin [From Augmentin] Adverse Reaction (Intermediate, Verified 01/13/24 13:52) Nausea and Vomiting, dizziness clavulanic acid [From Augmentin] Adverse Reaction (Intermediate, Verified 01/13/24 13:52) Nausea and Vomiting, dizziness Medication List - Last Reconciled 01/13/24 by Chaya Yarbrough RN acetaminophen 1,000 mg PO Q6H PRN atorvastatin 20 mg PO DAILY azithromycin 250 mg PO .MWF 90 days diltiazem HCl CD 120 mg PO DAILY docusate sodium 200 mg PO DAILY flecainide 100 mg PO Q12H fluticasone propion-salmeterol 500-50 mcg/dose (Wixela Inhub) 1 inh inhalation BID 90 days furosemide 80 mg (2 x 40 mg) PO QAM levalbuterol HCl 1.25 mg (0.5 mL) inhalation RQ4H WHILE AWAKE 90 days multivitamin 1 tab PO DAILY potassium chloride ER 10 mEq PO DAILY prednisone 5 mg PO 4XW 30 days sennosides (senna) 25.8 mg PO BEDTIME warfarin See Protocol 7.5 mg orally 7.5 X 4 DAYS/ 5MG X 3 DAYS; Nursing Note INR: 3.5 OUT OF therapeutic range Medications and supplements reviewed Pt celebrated Thanksgiving an 54 year wedding anniversary had ETOH - enc to enc greens during celebrations to help keep INR in range Denies any signs and symptoms of bleeding or bruising or clotting. Bleeding, bruising, clotting discussed Nutritional guidance given Dose: 2.5mg today then resume 5mg mwf/ 7.5mg x 4 days F/U INR: 2 weeks Patient verbalizes understanding of instructions given Anti-Coag Initial Assessment Social Hx Patient Tobacco Use Status: Former Tobacco user alcohol intake: current Alcohol intake frequency: holidays/special occasions only Coding Level of Care Code Est Patient Level 1 Diagnoses Current use of anticoagulant therapy Z79.01 Results AMB INR Fingerstick AMB INR Fingerstick 3.5 Last Edit by Chaya Yarbrough RN on 01/13/24 14:01 MANUAL ENTRY Assessment & Plan Assessment & Plan (1) Current use of anticoagulant therapy: Code(s): Z79.01 - joint terminal attack controller (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
== END 2024-01-13 14:09 | disposition home or self-care (01) ==
LOC: HO.ACS 13:51
PROVIDERS: PCP Internal Medicine; Visit Provider Internal Medicine
DX: Z79.01 Long term (current) use of anticoagulants (principal)

== ENCOUNTER → 2024-01-13 13:51 | Outpatient (BNVA) | payer MEDICARE, SELFPAY | PROVIDERS: PCP Internal Medicine; Visit Provider Internal Medicine | DX: I48.19 Other persistent atrial fibrillation (principal); Z86.718 Personal history of other venous thrombosis and embolism; Z79.01 Long term (current) use of anticoagulants; Z51.81 Encounter for therapeutic drug level monitoring | CPT/HCPCS: 85610; 99211 ==

== ENCOUNTER 2024-01-14 10:24 | Outpatient (AMB) | payer MEDICARE, SELFPAY ==
[2024-01-14 10:33] VITALS: BP 122/80; PULSE 80; BMI 36.8
--- NOTE | 2024-01-14 10:33 | A.OFFVIS_ITS ---
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 Allergies albuterol Adverse Reaction (Intermediate, Verified 01/13/24 13:52) Palpitations amoxicillin [From Augmentin] Adverse Reaction (Intermediate, Verified 01/13/24 13:52) Nausea and Vomiting, dizziness clavulanic acid [From Augmentin] Adverse Reaction (Intermediate, Verified 01/13/24 13:52) Nausea and Vomiting, dizziness Medication List - Last Reconciled 01/14/24 by Justin Nava MD acetaminophen 1,000 mg PO Q6H PRN atorvastatin 20 mg PO DAILY azithromycin 250 mg PO .MWF 90 days diltiazem HCl CD 120 mg PO DAILY docusate sodium 200 mg PO DAILY flecainide 100 mg PO Q12H fluticasone propion-salmeterol 500-50 mcg/dose (Wixela Inhub) 1 inh inhalation BID 90 days furosemide 80 mg (2 x 40 mg) PO QAM levalbuterol HCl 1.25 mg (0.5 mL) inhalation RQ4H WHILE AWAKE 90 days multivitamin 1 tab PO DAILY potassium chloride ER 10 mEq PO DAILY prednisone 5 mg PO 4XW 30 days sennosides (senna) 25.8 mg PO BEDTIME warfarin See Protocol 7.5 mg orally 7.5 X 4 DAYS/ 5MG X 3 DAYS; HPI Comments Details: Jay comes for follow-up. He said he is doing very well. He said he almost the next day after cardioversion started noticing much improved shortness of breath. He is taking his medications. No recurrent heart failure symptoms. No orthopnea, PND, leg edema which has improved. Currently taking Lasix 40 mg b.i.d.. No bleeding issues or neurologic events. FOR[facility]LY [facility], [facility] Medical History Hypoventilation Restrictive airway disease (HFpEF) heart failure with preserved ejection fraction CHF exacerbation Cough Paroxysmal atrial fibrillation Lymphedema of both lower extremities DEREK on CPAP Obesity (BMI 35.0-39.9 without comorbidity) COPD (chronic obstructive pulmonary disease) Varicose veins of right lower extremity with inflammation Surgical History History of appendectomy Family History Father No problems noted. Mother No problems noted. Sister No problems noted. Sister No problems noted. Son No problems noted. Daughter No problems noted. Social History Household Members: Spouse Housing: House Are you a primary resident care manager rn to a significant other at home: No Do you presently have visiting nurse or other home services: No Alcohol intake: current Alcohol intake frequency: holidays/special occasions only Alcohol type: beer Comment: PT USES CALL LIGHT APPROPRIATELY Patient Tobacco Use Status: Former Tobacco user service: Yes Current occupational status: retired Review of Systems Const Denies chills, Denies fatigue, Denies fever(s), Denies frequent falls, Denies weakness, Denies weight gain and Denies weight loss ENT Denies dizziness Card Denies chest pain, Denies leg edema, Denies lightheadedness, Denies palpitations, Denies dyspnea, Denies dyspnea on exertion, Denies orthopnea and Denies other (loss of consciousness) Resp Denies cough, Denies dyspnea and Denies dyspnea on exertion GI Denies hematochezia and Denies change in stool character Musc Denies abnormal gait, Denies muscle weakness, Denies numbness, Denies radiating pain into limb and Denies tingling Neuro Denies abnormal gait, Denies dizziness, Denies frequent falls, Denies numbness, Denies tingling and Denies weakness Endo Denies fatigue and Denies palpitations Physical Exam Vital Signs: Last Vital Signs Pulse 80 01/14/24 10:33 BP 122/80 01/14/24 10:33 BMI result Body Mass Index 36.8 Const General: cooperative, comfortable, no acute distress and alert Nutritional Appearance: obese Orientation/consciousness: patient oriented x3 Limitations: no limitations Neck Neck: Yes trachea midline, Yes supple and Yes JVD Chest Chest palpation & inspection: normal inspection of the chest Resp Effort & Inspection: normal respiratory effort Auscultation: clear to auscultation bilaterally and diminished lung sounds (Left greater than right) Cardio Jugular venous distension: no JVD Palpation: normal PMI Rate: regular rate Rhythm: abnormal rhythm irregularly irregular Heart sounds: S1 normal heart sound present, S2 normal heart sound present, Murmur heart sound present systolic holo and at the left sternal border and Other heart sounds present (S4 present) Skin General skin exam: no rashes or lesions noted Neuro General: patient oriented x3 and no focal motor deficits Extrem General: No cyanosis, No edema and Yes other (Bilateral lymphedema, right greater than left) Psych Appearance: grossly normal Office Procedures EKG Details: EKG shows normal sinus rhythm with right bundle-branch block with Q-wave in lead 3 most likely due to body habitus, unchanged [id number], Complete Assessment & Plan Assessment & Plan (1) Atrial flutter: Code(s): I48.92 - Unspecified atrial flutter Category: Medical Plan: Atrial flutter status post cardioversion on increased dose of flecainide has no clinical recurrence. Significant clinical improvement in his overall symptoms of exertional shortness of breath. He feels like he was back to his usual activity level. Continue rhythm control approach. If he has recurrent atrial fibrillation/flutter will need ablation therapy. This was discussed with him. Continue concomitant diltiazem therapy. Continue full oral anticoagulation, currently on warfarin being followed by [facility]. Maintain target INR between 2 and 3. (2) (HFpEF) heart failure with preserved ejection fraction: Comment: PATIENT ALSO HAS PAROXYSMAL ATRIAL FIBRILLATION AND, CONGESTIVE HEART FAILURE, CONTRIBUTING TO HIS INCREASED SHORTNESS OF BREATH. CURRENTLY VERY STABLE AND CONTROLLED. Code(s): I50.30 - Unspecified diastolic (congestive) heart failure Category: Medical Plan: Heart failure preserved ejection fraction with significant left atrial enlargement with underlying diastolic dysfunction with significant symptoms when in atrial flutter/fibrillation. Continue rhythm control approach. Continue current diuretic dose, clinically appears to be euvolemic and well compensated. Importance of diuretic regimen was discussed. Daily weight monitoring avoidance salt loading was discussed. Continue aggressive blood pressure control. Can consider addition of Jardiance to his regimen for heart failure management. Continue participate in weight loss program. Continue aggressive COPD ma nagement. Continue CPAP therapy. (3) Mitral regurgitation: Code(s): I34.0 - Nonrheumatic mitral (valve) insufficiency Category: Medical Plan: Mitral regurgitation which by echocardiogram appears to be moderate although clinically there is a holosystolic murmur. Will continue follow up with echocardiogram in 6 months time. If there is concern or question will pursue ARJUN for further evaluation of his mitral valve. Mitral regurgitation could be secondary to significant left atrial enlargement as well. Will follow up in the clinic in 6 months time after an echocardiogram. Thank you for allowing me to partake in his care Orders: Orders CA echo transthoracic complete 6 Months I34.0 - Nonrheumatic mitral (valve) insufficiency Coding Level of Care Code Est Pt Level 4 (98993) Complex EM visit Add On G2211 Diagnoses Atrial flutter I48.92 (HFpEF) heart failure with preserved ejection fraction I50.30 Mitral regurgitation I34.0 CPT Codes EKG - CPT: [id number], Complete ([id number])
--- OUTSIDE RECORDS SUMMARY | 2024-01-21 12:30 | XMS_ITS | Continuity of Care Document ---
Author Name [facility] Organization [facility] Care Team Providers Care [employer] Name Role Phone [facility] Unavailable Unavailable Problems Problem Status Onset Date Classification Date Reported Comments Source Acute embolism and thrombosis of unspeci Active 11/28/2021 [facility] Acute respiratory failure with hypoxia Active 11/28/2021 12/02/2021 45 [facility] COPD exacerbation Active 11/28/2021 12/02/2021 45 [facility] Influenza A Active 11/28/2021 12/02/[address] [facility] Paroxysmal atrial fibrillation Active 11/28/2021 12/02/2021 45 [facility] Anticoagulated Active 11/28/2021 12/02/2021 45 [facility] Morbid obesity Active 11/28/2021 12/02/2021 45 [facility] Shortness of breath Active [facility] Medications Medication Details Route Status Patient Instructions Ordering Provider Order Date Source guaiFENesin 600 mg oral tablet, extended release = 1 Tab, ORAL, BID, X 5 Day(s), # 10 Tab, 0 Refill(s), Acute, Pharmacy: [facility], 175.6, cm, 11/28/21 6:49:00 HST, Height/Length (cm), 117.8, kg, 11/28/21 6:49:00 HST, Dose calculation weight (kg) Active 022 45 [facility] Albuterol (Eqv-Proventil HFA) 90 mcg/inh inhalation aerosol 2 Puff, INH, Q6H, # 8.5 gm, 0 Refill(s), Maintenance, Pharmacy: [facility], 175.6, cm, 11/28/21 6:49:00 HST, Height/Length (cm), 117.8, kg, 11/28/21 6:49:00 HST, Dose calculation weight (kg) Active [facility] Tamiflu 75 mg oral capsule = 1 Cap, ORAL, BID, X 2 Day(s), # 4 Cap, 0 Refill(s), [facility], cm, 11/28/21 6:49:00 HST, Height/Length (cm), 117.8, kg, 11/28/21 6:49:00 HST, Dose calculation weight (kg) Active [facility] predniSONE 50 mg oral tablet = 1 Tab, ORAL, DAILY, X 5 Day(s), # 5 Tab, 0 Refill(s), Acute, Pharmacy: [facility], 175.6, cm, 11/28/21 6:49:00 HST, Height/Length (cm), 117.8, kg, 11/28/21 6:49:00 HST, Dose calculation weight (kg) Active [facility] multivitamin oral 1 Tab, ORAL, DAILY, OTC, Maintenance Active [facility] [place] Senna = 1 Tab, ORAL, DAILY, OTC, Maintenance Active [facility] warfarin 5 mg oral tablet = 1.5 Tab, ORAL, QTThSa, Maintenance Active [facility] PREPACK Albuterol (0.83 mg/mL) 2.5mg/3mL #6 3 mL, INH, Q4H, PRN Shortness of breath/wheezin g, Maintenance Active [facility] [place] Wixela Inhub 500 mcg-50 mcg inhalation powder 1 Inhalation, INH, BID, Maintenance Active [facility] warfarin 5 mg oral tablet = 1 Tab, ORAL, QSuMWF, 0 Refill(s), Maintenance Active [facility] [place] DilTIAZem (Eqv-Cardizem CD) 120 mg/24 hours oral capsule, extended release = 1 Cap, ORAL, DAILY, 0 Refill(s), Maintenance Active [facility] [place] Klor-Con 10 mEq oral tablet, extended release = 1 Tab, ORAL, DAILY, 0 Refill(s), Maintenance Active 45 [facility] [place] flecainide 50 mg oral tablet = 1 Tab, ORAL, Q12H, 0 Refill(s), Maintenance Active 45 [facility] [place] furosemide 40 mg oral tablet = 1 Tab, ORAL, BID, 0 Refill(s), Maintenance Active 45 [facility] [place] atorvastatin 20 mg oral tablet = 1 Tab, ORAL, DAILY, 0 Refill(s), Maintenance Active 45 [facility] [place] Allergies, Adverse Reactions, Alerts Substance Category Reaction Severity Reaction type Status Date Reported Comments Source Augmentin Assertion vomiting, dizziness Drug allergy Active 45 [facility] [place] Results Order Name Results Value Reference Range Date Interpretation Comments Source AutoDiff * Auto Neutrophil Percent 67.8 % 40.0 - 80.0 12/01 [facility] [place] AutoDiff * Auto Neutrophil Absolute 6.1 K/uL 12/01 [facility] [place] AutoDiff * Auto Lymphocyte Percent 13.0 % 18.0 - 45.0 12/01 L [facility] [place] AutoDiff * Auto Lymphocyte Absolute 1.2 K/uL 12/01 [facility] [place] AutoDiff * Auto Monocyte Percent 19.0 % 3.0 - 12.0 12/01 H [facility] [place] AutoDiff * Auto Monocyte Absolute 1.7 K/uL 12/01 [facility] [place] AutoDiff * Auto Eosinophil Percent 0.1 % - <=7.0 12/01 [facility] [place] AutoDiff * Auto Eosinophil Absolute 0.0 K/uL 12/01 [facility] [place] AutoDiff * Auto Basophil Percent 0.1 % - <=2.0 12/01 [facility] [place] AutoDiff * Auto Basophil Absolute 0.0 K/uL 12/01 [facility] [place] AutoDiff * Sex assigned at Male 12/01 [facility] [place] CBC WBC 9.0 K/uL 3.5 - 10.4 10/21 /2022 NA [facility] [place] CBC RBC 4.83 M/uL 4.00 - 6.20 12/01 NA [facility] [place] CBC HGB 14.2 gm/dL 14.0 - 18.0 12/01 NA [facility] [place] CBC HCT 42.7 % 42.0 - 52.0 12/01 NA [facility] CBC MCV 88.4 fL 82.0 - 101.0 12/01 NA [facility] [place] CBC MCH 29.4 pg 26.0 - 34.0 12/01 NA [facility] [place] CBC MCHC 33.2 gm/dL 32.0 - 36.0 12/01 NA [facility] CBC RDW 15.2 % 11.0 - 15.0 12/01 H [facility] [place] CBC PLT 127 K/uL 140 - 440 12/01 L [facility] CBC MPV 8.5 fL 7.4 - 11.4 12/01 NA [facility] [place] CBC Sex assigned at Male 12/01 NA [facility] [place] CBC Manual Diff Y/N SReview 12/01 NA [facility] CMP Sodium Level 143 mmol/L 136 - 145 12/01 NA [facility] CMP Potassium Level 3.8 mmol/L 3.5 - 5.1 12/01 NA [facility] CMP Chloride Level 101 mmol/L 98 - 107 12/01 NA [facility] [place] CMP CO2/Carbon Dioxide 34.6 mmol/L 21.0 - 32.0 12/01 H [facility] [place] CMP Anion Gap 7 mmol/L 4 - 16 12/01 NA [facility] CMP Glucose, Random 90 mg/dL 70 - 95 12/01 NA Reference ranges are based on a fasting specimen. [facility] [place] CMP BUN 33 mg/dL 7 - 20 12/01 H [facility] [place] CMP Creatinine 0.8 mg/dL 0.9 - 1.3 12/01 L [facility] [place] CMP BUN/Creat Ratio 41.2 12/01 [facility] CMP Osmolality, Calculated 303 12/01 [facility] CMP Calcium Level 9.0 mg/dL 8.6 - 10.0 12/01 [facility] CMP Total Protein 6.4 gm/dL 6.4 - 8.2 12/01 [facility] CMP Albumin Level 3.7 gm/dL 3.5 - 5.0 12/01 [facility] CMP Globulin Level 2.7 gm/dL 2.0 - 4.0 12/01 [facility] CMP A/G Ratio 1.4 1.1 - 2.2 12/01 [facility] CMP ALP 61 units/L 38 - 126 12/01 [facility] [place] CMP ALT 26 units/L 10 - 40 12/01 [facility] CMP AST 16 units/L 15 - 41 12/01 [facility] CMP Bilirubin, Total 0.6 mg/dL - <=1.0 12/01 [facility] CMP GFR - Non >60 mL/min/1.73 m2 12/01 NA <60 = Renal Insufficiency , <15 = Renal Failure. This equation is not applicable to person's under 18 years of age.eGFR calculation based on the IDND traceable four-paramete r MDRD equation. [facility] CMP GFR - >60 mL/min/1.73 m2 12/01 [facility] CMP Sex assigned at Male 12/01 [facility] PT PT - Patient 25.1 sec 11.8 - 13.8 12/01 H [facility] PT PT - INR 2.42 12/01 INDICATION [...] 2.5 - 3.5 of recurrent myocardial infarction [facility] [place] PT Sex assigned at Male 12/01 NA [facility] SReview Anisocytosis 1+ None 12/01 * [facility] SReview RBC Morphology Abnormal Normal 12/01 * [facility] SReview Sex assigned at Male 12/01 NA [facility] [place] AutoDiff * Auto Neutrophil Percent 71.4 % 40.0 - 80.0 11/30 NA [facility] [place] AutoDiff * Auto Neutrophil Absolute 7.3 K/uL 11/30 NA [facility] [place] AutoDiff * Auto Lymphocyte Percent 10.6 % 18.0 - 45.0 11/30 L [facility] [place] AutoDiff * Auto Lymphocyte Absolute 1.1 K/uL 11/30 NA [facility] [place] AutoDiff * Auto Monocyte Percent 17.8 % 3.0 - 12.0 11/30 H [facility] [place] AutoDiff * Auto Monocyte Absolute 1.8 K/uL 11/30 NA [facility] [place] AutoDiff * Auto Eosinophil Percent 0.1 % - <=7.0 11/30 NA [facility] [place] AutoDiff * Auto Eosinophil Absolute 0.0 K/uL 11/30 NA [facility] [place] AutoDiff * Auto Basophil Percent 0.1 % - <=2.0 11/30 NA [facility] [place] AutoDiff * Auto Basophil Absolute 0.0 K/uL 11/30 NA [facility] [place] AutoDiff * Sex assigned at Male 11/30 NA [facility] [place] CBC WBC 10.2 K/uL 3.5 - 10.4 11/30 NA [facility] [place] CBC RBC 4.66 M/uL 4.00 - 6.20 [...] 33.5 gm/dL 32.0 - 36.0 11/30 NA [facility] [place] CBC RDW 15.3 % 11.0 - 15.0 11/30 H [facility] [place] CBC PLT 121 K/uL 140 - 440 [...] 99 mmol/L 98 - 107 11/30 NA [facility] [place] CMP CO2/Carbon Dioxide 33.80 mmol/L 21.00 - 32.00 11/30 H [facility] [place] CMP Anion Gap 5 mmol/L 4 - 16 11/30 NA [facility] CMP Glucose, Random 97 mg/dL 70 - 95 11/30 H Reference ranges are based on a fasting specimen. [facility] [place] CMP BUN 33 mg/dL 7 - 20 11/30 H [facility] CMP Creatinine 0.7 mg/dL 0.9 - 1.3 11/30 L [facility] [place] CMP BUN/Creat Ratio 47.1 11/30 NA [facility] [place] CMP Osmolality, Calculated 293 11/30 NA [facility] [place] CMP Calcium Level 8.7 mg/dL 8.6 - 10.0 11/30 NA [facility] CMP Total Protein 6.3 gm/dL 6.4 - 8.2 11/30 L [facility] CMP Albumin Level 3.8 gm/dL 3.5 - 5.0 11/30 NA [facility] CMP Globulin Level 2.5 gm/dL 2.0 - 4.0 11/30 NA [facility] CMP A/G Ratio 1.5 1.1 - 2.2 11/30 NA [facility] CMP ALP 56 units/L 38 - 126 11/30 NA [facility] CMP ALT 21 units/L 10 - 40 11/30 NA [facility] CMP AST 17 units/L 15 - 41 11/30 NA [facility] CMP Bilirubin, Total 0.6 mg/dL - <=1.0 11/30 NA [facility] CMP GFR - Non >60 mL/min/1.73 m2 11/30 NA <60 = Renal Insufficiency , <15 = Renal Failure. This equation is not applicable to person's under 18 years of age.eGFR calculation based on the IDND traceable four-paramete r MDRD equation. [facility] CMP GFR - >60 mL/min/1.73 m2 11/30 NA [facility] CMP Sex assigned at Male 11/30 NA [facility] PT PT - Patient 25.6 sec 11.8 - 13.8 11/30 H [facility] PT PT - INR 2.48 11/30 INDICATION [...] 2.5 - 3.5 of recurrent myocardial infarction [facility] [place] PT Sex assigned at Male 11/30 NA [facility] [place] SReview Anisocytosis 1+ None 11/30 * [facility] SReview RBC Morphology Abnormal Normal 11/30 * [facility] [place] SReview Sex assigned at Male 11/30 NA [facility] [place] AutoDiff * Auto Neutrophil Percent 73.6 % 40.0 - 80.0 11/29 NA [facility] [place] AutoDiff * Auto Neutrophil Absolute 8.8 K/uL 11/29 NA [facility] [place] AutoDiff * Auto Lymphocyte Percent 5.5 % 18.0 - 45.0 11/29 L [facility] [place] AutoDiff * Auto Lymphocyte Absolute 0.7 K/uL 11/29 NA [facility] [place] AutoDiff * Auto Monocyte Percent 20.9 % 3.0 - 12.0 11/29 H [facility] [place] AutoDiff * Auto Monocyte Absolute 2.5 K/uL 11/29 NA [facility] [place] AutoDiff * Auto Eosinophil Percent 0.0 % - <=7.0 11/29 NA [facility] [place] AutoDiff * Auto Eosinophil Absolute 0.0 K/uL 11/29 NA [facility] [place] AutoDiff * Auto Basophil Percent 0.0 % - <=2.0 11/29 NA [facility] [place] AutoDiff * Auto Basophil Absolute 0.0 K/uL 11/29 NA [facility] [place] AutoDiff * Sex assigned at Male 11/29 NA [facility] [place] CBC WBC 12.0 K/uL 3.5 - 10.4 11/29 H [facility] [place] CBC RBC 4.69 M/uL 4.00 - 6.20 11/29 NA [facility] [place] CBC HGB 13.8 gm/dL 14.0 - 18.0 11/29 L [facility] [place] CBC HCT 42.2 % 42.0 - 52.0 11/29 NA [facility] [place] CBC MCV 89.9 fL 82.0 - 101.0 11/29 NA [facility] [place] CBC MCH 29.3 pg 26.0 - 34.0 11/29 NA [facility] [place] CBC MCHC 32.6 gm/dL 32.0 - 36.0 11/29 NA [facility] [place] CBC RDW 15.1 % 11.0 - 15.0 11/29 H [facility] [place] CBC PLT 121 K/uL 140 - 440 11/29 L [facility] [place] CBC MPV 8.5 fL 7.4 - 11.4 11/29 NA [facility] CBC Manual Diff Y/N SReview 11/29 NA [facility] [place] CBC Sex assigned at Male 11/29 NA [facility] CMP Sodium Level 140 mmol/L 136 - 145 11/29 NA [facility] CMP Potassium Level 4.1 mmol/L 3.5 - 5.1 11/29 NA [facility] [place] CMP Chloride Level 102 mmol/L 98 - 107 11/29 NA [facility] [place] CMP CO2/Carbon Dioxide 30.5 mmol/L 21.0 - 32.0 11/29 NA [facility] [place] CMP Anion Gap 8 mmol/L 4 - 16 11/29 NA [facility] CMP Glucose, Random 115 mg/dL 70 - 95 11/29 H Reference ranges are based on a fasting specimen. [facility] [place] CMP BUN 27 mg/dL 7 - 20 11/29 H [facility] [place] CMP Creatinine 0.7 mg/dL 0.9 - 1.3 11/29 L [facility] [place] CMP BUN/Creat Ratio 38.6 11/29 NA [facility] [place] CMP Osmolality, Calculated 296 11/29 NA [facility] [place] CMP Calcium Level 9.0 mg/dL 8.6 - 10.0 11/29 NA [facility] CMP Total Protein 6.6 gm/dL 6.4 - 8.2 11/29 NA [facility] [place] CMP Albumin Level 3.8 gm/dL 3.5 - 5.0 11/29 NA [facility] CMP Globulin Level 2.8 gm/dL 2.0 - 4.0 11/29 NA [facility] [place] CMP A/G Ratio 1.4 1.1 - 2.2 11/29 NA [facility] [place] CMP ALP 59 units/L 38 - 126 11/29 NA [facility] CMP ALT 21 units/L 10 - 40 11/29 NA [facility] [place] CMP AST 18 units/L 15 - 41 11/29 NA [facility] CMP Bilirubin, Total 0.5 mg/dL - <=1.0 11/29 NA [facility] CMP GFR - Non >60 mL/min/1.73 m2 11/29 NA <60 = Renal Insufficiency , <15 = Renal Failure. This equation is not applicable to person's under 18 years of age.eGFR calculation based on the IDND traceable four-paramete r MDRD equation. [facility] CMP GFR - >60 mL/min/1.73 m2 11/29 NA [facility] CMP Sex assigned at Male 11/29 NA [facility] PT PT - Patient 26.6 sec 11.8 - 13.8 11/29 H [facility] PT PT - INR 2.61 11/29 INDICATION [...] SReview Sex assigned at Male 11/29 NA [facility] [place] POC CG4+ Harshal VBG - pH 7.390 7.310 - 7.410 11/28 NA Device Code: LAB iSTATFacility : 0045Location: EDSerial Number: [id number] r Code: superkOperato r Name: Aditi Cornelius able Lot: [id number] [facility] [place] POC CG4+ Harshal VBG - pCO2 46.6 mmHg 41.0 - 51.0 11/28 NA [facility] [place] POC CG4+ Harshal VBG - pO2 45 mmHg 30 - 40 11/28 H [facility] [place] POC CG4+ Harshal VBG - HCO3 28.2 mmol/L 23.0 - 28.0 11/28 H [facility] [place] POC CG4+ Harshal VBG - TCO2 30 mmol/L 24 - 29 11/28 H [facility] [place] POC CG4+ Harshal VBG - O2 Sat 80.0 % 0.0 - 75.0 11/28 H [facility] [place] POC CG4+ Harshal VBG - BE 2 mmol/L -3 - 3 11/28 NA [facility] [place] POC CG4+ Harshal POCT - Lactate/Lacti c Acid 0.90 mmol/L 0.50 - 1.90 11/28 NA [facility] [place] POC CG4+ Harshal BG - Modified Bayron Test NA 11/28 NA [facility] [place] POC CG4+ Harshal BG - Site OTHER 11/28 NA [facility] [place] POC CG4+ Harshal Sex assigned at Male 11/28 NA [facility] BMP Sodium Level 136 mmol/L 136 - 145 11/28 NA [facility] BMP Potassium Level 3.7 mmol/L 3.5 - 5.1 11/28 NA [facility] BMP Chloride Level 100 mmol/L 98 - 107 11/28 NA [facility] [place] BMP CO2/Carbon Dioxide 26.10 mmol/L 21.00 - 32.00 11/28 NA [facility] BMP Anion Gap 10 mmol/L 4 - 16 11/28 NA [facility] BMP Glucose, Random 105 mg/dL 70 - 95 11/28 H Reference ranges are based on a fasting specimen. [facility] BMP BUN 26 mg/dL 7 - 20 11/28 H [facility] BMP Creatinine 0.8 mg/dL 0.9 - 1.3 11/28 L [facility] BMP BUN/Creat Ratio 32.5 11/28 NA [facility] BMP Osmolality, Calculated 287 11/28 NA [facility] BMP Calcium Level 8.6 mg/dL 8.6 - 10.0 11/28 NA [facility] BMP GFR - Non >60 mL/min/1.73 m2 11/28 NA <60 = Renal Insufficiency , <15 = Renal Failure. This equation is not applicable to person's under 18 years of age.eGFR calculation based on the IDND traceable four-paramete r MDRD equation. [facility] BMP GFR - >60 mL/min/1.73 m2 11/28 NA [facility] BMP Sex assigned at Male 11/28 NA [facility] BNPep BNP B-Natriuretic Peptide 58 pg/mL - <=100 11/28 NA [facility] BNPep Sex assigned at Male 11/28 NA [facility] [place] CBC WBC 8.9 K/uL 3.5 - 10.4 11/28 NA [facility] [place] CBC RBC 4.60 M/uL 4.00 - 6.20 11/28 NA [facility] [place] CBC HGB 13.7 gm/dL 14.0 - 18.0 11/28 L [facility] [place] CBC HCT 40.7 % 42.0 - 52.0 11/28 L [facility] [place] CBC MCV 88.5 fL 82.0 - 101.0 11/28 NA [facility] CBC MCH 29.7 pg 26.0 - 34.0 11/28 NA [facility] CBC MCHC 33.5 gm/dL 32.0 - 36.0 11/28 NA [facility] CBC RDW 15.3 % 11.0 - 15.0 11/28 H [facility] CBC PLT 109 K/uL 140 - 440 11/28 L [facility] CBC MPV 7.9 fL 7.4 - 11.4 11/28 NA [facility] CBC Manual Diff Y/N Man Diff 11/28 NA [facility] CBC Sex assigned at Male 11/28 NA [facility] CK+MBIF CK, Total 164 units/L 32 - 230 11/28 NA [facility] CK+MBIF Sex assigned at Male 11/28 [facility] [id number] LU SARS-CoV-2 Source Nasopharyng eal 11/28 NA [facility] [id number] LU Influenza A Agn Molecular Detected Not [...] Test results? Y/N YAssay performed by RT-PCR [facility] [id number] LU Influenza B Agn Molecular Not Detected Not Detected 11/28 NA Assay performed by RT-PCR [facility] [id number] LU SARS-CoV-2 Molecular Not Detected Not Detected 11/28 NA Assay performed by RT-PCRThis test was performed under U.S. Food and Drug Administratio n (FDA) Emergency use Authorization (EUA). This test has been validated but the FDAs independent review of this validation is pending. [facility] [id number] LU SARS-CoV-2 First test? No 11/28 NA [facility] [id number] IGOR Health Care Worker? No 11/28 NA [facility] [id number] IGOR SARS-CoV-2 Is the Patient Hospitalized? No 11/28 NA [facility] [id number] IGOR SARS-CoV-2 Is the Patient in ICU? No 11/28 NA [facility] [place] [id number] IGOR Patient From [facility] Area? Yes 11/28 NA [facility] [id number] IGOR Symptomatic per CDC? Yes 11/28 NA [facility] [id number] IGOR SARS-CoV-2 Is the Patient ? No 11/28 NA [facility] [place] [id number] IGOR Sex assigned at Male 11/28 NA [facility] [place] MDiff Bands % 1 % - <=6 11/28 NA [facility] [place] MDiff Manual Neutrophil Percent 64 % 40 - 80 11/28 NA [facility] [place] MDiff Manual Neutrophil Absolute 5.8 K/uL 11/28 NA [facility] [place] MDiff Manual Lymphocyte Percent 6 % 18 - 45 11/28 L [facility] [place] MDiff Manual Lymphocyte Absolute 0.5 K/uL 11/28 NA [facility] [place] MDiff Manual Monocyte Percent 27 % 3 - 12 11/28 H [facility] [place] MDiff Manual Monocyte Absolute 2.4 K/uL 11/28 NA [facility] [place] MDiff Manual Eosinophil Percent 2 % - <=7 11/28 NA [facility] [place] MDiff Manual Eosinophil Absolute 0.2 K/uL 11/28 NA [facility] [place] MDiff RBC Morphology Abnormal Normal 11/28 * [facility] [place] MDiff Anisocytosis 1+ None 11/28 * [facility] [place] MDiff Polychromasia 1+ None 11/28 * [facility] [place] MDiff Sex assigned at Male 11/28 NA [facility] [place] Mg Magnesium Level 1.9 mg/dL 1.6 - 2.5 11/28 NA [facility] [place] Mg Sex assigned at Male 11/28 [facility] - Patient 32.7 sec 11.8 - 13.8 11/28 H [facility] PT PT - INR 3.41 11/28 NA [...] 2.5 - 3.5 of recurrent myocardial infarction [facility] PT Sex assigned at Male 11/28 NA [facility] PTT PTT - Patient 42 sec 21 - 34 11/28 [facility] PTT Sex assigned at Male 11/28 [facility] TROPHS Troponin I High Sensitivity 7 ng/L [...] testing may be helpful for interpretatio n. [facility] TROPHS Sex assigned at Male 11/28 NA [facility] C Blood C Blood Final:No growth at 5 days.Sex assigned at :Male 11/28 [facility] C Blood C Blood Final:No growth at 5 days.Sex assigned at :Male 11/28 [facility] Diagnostic Reports Report Value Date Source Chest [...] Jo MD on 12/01/2021 06:58 HST 12/01/2021 [facility] 1 Vw Portable PROCEDURE: Chest 1 [...] Collin Simpson on 11/30/2021 10:36 HST 11/30/2021 [place] [id number] Vw Portable PROCEDURE: CHEST RAD IOGRAPH, 1 [...] Dubon MD on 11/29/2021 10:40 HST 11/29/2021 [facility] 1 Vw Portable PROCEDURE: CHEST RAD [...] Brown MD on 11/28/2021 05:06 HST 11/28/2021 [facility] Consultation Notes Results Value Date Source Portable [...] on 12/01/2021 06:58 HST Final 12/01/2021 45 [facility] Pulmonology Progress Note Patient: LEANNE JARAMILLO Age: 76 years Legal Sex: MALE : 1945 Subjective 1. Doing better overall 2. Now comfortable on room air 3. No longer have any wheezing 4. Afebrile; no leukocytosis 5. all medications reviewed Objective NOTE: This note was generated with the assistance of a voice dictation system, using the [employer] Edition. Meter Reader errors may very well be present and uncorrected. We retained the right to modify this information in the event of errors without notice. Please contact me personally if clarification is required. Vital Signs (last 24 hrs) Last Charted Minimum Maximum Temp(?F) 97.9 (DEC 01 07:57 HST) 97.9 (NOV [...] L 13.8 (NOV 29) L 13.7 (NOV 18) Hct 42.7 (DEC 01) L 41.3 (NOV 30) 42.2 (NOV 29) L 40.7 (NOV 18) Plt L 127 (DEC 01) L 121 (NOV 30) L 121 (NOV 29) L 109 (NOV 18) Na 143 (DEC 01) 138 (NOV 30) 140 (NOV 29) 136 (NOV 18) K 3.8 (DEC 01) 3.9 (NOV 30) 4.1 (NOV 29) 3.7 (NOV 18) CO2 H 34.6 (DEC 01) H 33.80 (NOV 30) 30.5 (NOV 29) 26.10 (NOV 18) Cl 101 (DEC 01) 99 (NOV 20) 102 (NOV 29) 100 (NOV 18) Cr L 0.8 (DEC 01) L 0.7 (NOV 30) L 0.7 (NOV 29) L 0.8 (NOV 18) BUN H 33 (DEC 01) H 33 (NOV 30) H 27 (NOV 29) H 26 (NOV 18) Glucose Random 90 (DEC 01) H 97 (NOV 20) H 115 (NOV 19) H 105 (NOV 18) Mg 1.9 (NOV 28) Ca 9.0 (DEC 01) 8.7 (NOV 20) 9.0 (NOV 29) 8.6 (NOV 18) PT H 25.1 (DEC 01) H 25.6 (NOV 20) H 26.6 (NOV 19) H 32.7 (NOV 18) INR 2.42 (DEC 01) 2.48 (OCT 20) 2.61 (OCT 19) 3.41 (NOV 18) PTT H 42 [...] 0 0 2100 Fluid Balance 4 798 1590 Physical Exam General Appearance: Morbidly obese, elderly [...] Normal strength, No tenderness Integumentary: Warm, Dry, [place], No skin lesions Neurologic: Alert, Oriented, Normal [...] mg/3 mL Neb Soln 3 mL, INH, [id number] Dextrose 50% Inj 50 mL Syr 25 [...] Encourage ambulation Continue DuoNeb every 6 hours [id number] with addition to AccuPAP Continue with Breo [...] of unspecified lower extremity, I82.409) 5. Anticoagulated ([facility] (current) use of anticoagulants, Z79.01) 6. Morbid [...] Chest Physiotherapy Incentive Spirometry Treatment [facility] O[facility] Continuous Pulse Oximetry Respiratory Therapy Communication Order Updraft Nebulizer Treatment [id number] Male 12/01/2021 [facility] Pulmonology Consultation Patient: LEANNE JARAMILLO Age: 76 [...] shortness of breath. Patient is visiting from [place]. He states symptoms began 2 days ago [...] or vomiting. He apparently is visiting from [place], gotten his influenza vaccine and COVID booster vaccination about 2 weeks prior to arrival here. He arrived here on 11/17/2021, and developed the symptoms about 3 days prior to being seen in emergency room. Developed a low-grade fever up to 100.6 ?F prior to admission, took Tylenol x2 tablet [...] Normal strength, No tenderness Integumentary: Warm, Dry, [place], No skin lesions Neurologic: Alert, Oriented, Normal [...] Encourage ambulation Add DuoNeb every 6 hours [id number] with addition to AccuPAP Continue with Breo [...] of unspecified lower extremity, I82.409) 5. Anticoagulated ([employer] (current) use of anticoagulants, Z79.01) 6. Morbid [...] Cap, ORAL, DAILY DuoNeb, 3 mL, INH, [id number], PRN flecainide, 50 mg, 0.5 Tab, ORAL, [...] 8.9 (NOV 18) Hgb L 13.9 (NOV 20) L 13.8 (NOV 19) L 13.7 (OCT 18) Hct L 41.3 (NOV 20) 42.2 (OCT 19) L 40.7 (OCT 18) Plt L 121 (NOV 20) L 121 (NOV 19) L 109 (OCT 18) Na 138 (NOV 20) 140 (NOV 19) 136 (OCT 18) K 3.9 (NOV 20) 4.1 (NOV 19) 3.7 (OCT 18) CO2 H 33.80 (NOV 20) 30.5 (OCT 19) 26.10 (OCT 18) Cl 99 (NOV 20) 102 (NOV 19) 100 (OCT 18) Cr L 0.7 (OCT 20) L [...] Never. Are you ready to quit? N/A. [id number] Male 11/30/2021 [facility] Progress Note Patient: AMY JARAMILLO Age: 76 years Legal Sex: MALE : 1945 Chart is generated by [employer], Ivon Valdes, for Dr. Rincon Date of [...] mL 0 2100 2875 Fluid Balance 4 1596 -1435 Physical Exam General Appearance: No acute distress. [...] mg/3 mL Neb Soln 3 mL, INH, [id number] Dextrose 50% Inj 50 mL Syr 25 [...] of unspecified lower extremity, I82.409) 5. Anticoagulated ([facility] (current) use of anticoagulants, Z79.01) 6. Morbid obesity (Morbid (severe) obesity due to excess calories, E66.01) 7. Paroxysmal atrial fibrillation (Paroxysmal atrial fibrillation, I48.0) SOB (shortness of breath) (SOB (shortness of breath), 12564) Plan: Cont breathing treatments Cont steroids started back on diuretics wean off O2 if possible Cont Azithromycin Reviewed chest x-ray hopefully dc soon consult Dr. Mroris, pt may need in-flight O2 for flight home Signing over care to Dr. Kay tomorrow morning. Quality Measures Charting performed by Ivon Wan, for Dr. Rincon The scribe's documentation has been prepared under my direction and personally reviewed by me in its entirety. I confirm that the note above accurately reflects all work, treatment, and medical decision making performed by me. [id number] Male 11/30/2021 [facility] Progress Note Patient: AMY JARAMILLO Age: 76 [...] mg/3 mL Neb Soln 3 mL, INH, [id number] albuterol-ipratrop 3-0.5 mg/3 mL Neb Soln 3 [...] of unspecified lower extremity, I82.409) 5. Anticoagulated ([employer] (current) use of anticoagulants, Z79.01) 6. Morbid obesity (Morbid (severe) obesity due to excess calories, E66.01) 7. Paroxysmal atrial fibrillation (Paroxysmal atrial fibrillation, I48.0) SOB (shortness of breath) (SOB (shortness of breath), 46558) Plan: Chest x-ray Start Azithromycin Cont breathing treatments Cont steroids Supplemental O2 as needed - goal sat 88-92 Advance care planning including the explanation and discussion of advance directives such as standard forms (with completion of such forms, when performed) by the physician or other qualified health professional; first 30 minutes, ppnt-hd-geyx with the patient, family member(s) and/or surrogate. Quality Measures Charting performed by [employer]er, Ivon Valdes, for Dr. Rincon The scribe's documentation has been prepared under my direction and personally reviewed by me in its entirety. I confirm that the note above accurately reflects all work, treatment, and medical decision making performed by me. 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 Patient is visiting from [place]. He states symptoms began 2 days ago [...] HST, N/A DuoNeb: = 3 mL, INH, [id number], PRN, Wheezing, STAT, NEB AMP, 11/28/21 3:03:00 [...] History. Medical history: All Problems Bronchitis / [id number] / Confirmed COPD (chronic obstructive pulmonary disease) / 40342765 / Confirmed Deep vein thrombosis (DVT) of lower extremity associated with air travel / [id number] / Confirmed Pulmonary embolism / [id number] / Confirmed. Surgical history: Triage Surgical History. [...] method Bed scale Height/Length (cm) 175.6 cm [place] Body Weight Calculated 71.008 . Oxygen saturation: [...] B Agn Molecular Not Detected Patient From [facility] Area? Yes SARS-CoV-2 Molecular Not Detected SARS-CoV-2 [...] treatment plan, Patient indicated understanding of instructions. [id number] Male 11/28/2021 [facility] Discharge Summaries Results Value Date Source Discharge Summary Patient: AMY JARAMILLO Age: 76 years Legal Sex: MALE : 1945 Admission Information Admit Date: 11/27/21 20:51 Reason for Admission: CHRONIC OBSTRUCTIVE PULMONARY DISEASE (J44.1), INFLUENZA A (J10.1) Physicians Involved With Care Admitting: MD Sergey, Waldemar Johnson Attending: MD Rincon Robert D Consulting: MD Alexandra,MPH, Noman Primary Care: MD [...] of unspecified lower extremity, I82.409) 5. Anticoagulated (t[employer] (current) use of anticoagulants, Z79.01) 6. Morbid [...] weeks prior to departing on vacation from [place] that he received his influenza vaccine with [...] other qualified health professional; first 30 minutes, evdz-tq-zccq with the patient, family member(s) and/or surrogate [...] H 115 (NOV 29) Mg 1.9 (NOV 18) Ca 9.0 (DEC 01) 8.7 (NOV 20) [...] f/u with PCP 1 week Cardiac diet [id number] Male 12/01/2021 [facility] [place] History and Physicals Results Value Date Source Admission H & P 11/28/2021 [facility] [place] History and Physical Patient: LIBAN JARAMILLO Age: [...] weeks prior to departing on vacation from [place] that he received his influenza vaccine with [...] other qualified health professional; first 30 minutes, qmog-kj-ucqg with the patient, family member(s) and/or surrogate [...] (shortness of breath) (SOB (shortness of breath), 94927) Orders: acetaminophen (acetaminophen), 650 mg, ORAL, Q6H, PRN, Pain-Mild (Scale 1-3), TAB, 11/28/21 5:00:00 HST acetaminophen (acetaminophen), 650 mg, ORAL, Q6H, PRN, Fever, TAB, 11/28/21 5:00:00 HST albuterol-ipratropium (DuoNeb), = 3 mL, INH, [id number], PRN, Shortness of breath, NEB AMP, 11/28/21 [...] mg, ORAL, DAILY DuoNeb, 3 mL, INH, [id number], PRN flecainide, 50 mg, 1 Tab, ORAL, [...] smoker, quit more than 30 days ago. [id number] Male 11/28/2021 [facility] Vital Signs Vital Sign Value Date Comments Source Peripheral Pulse Rate 94 bpm 12/02/2021 45 [facility] Pulse Oximetry 90 % 12/02/2021 45 [facility] Respiratory rate 18 br/min 12/02/2021 45 [facility] Systolic BP 116 mm[Hg] 12/02/2021 45 [facility] Diastolic BP 69 mm[Hg] 12/02/2021 45 [facility] [place] Mean BP 85 mm[Hg] 12/02/2021 45 [facility] [place] Temperature (F) 97.8 [degF] 12/02/2021 45 [facility] [place] Peripheral Pulse Rate 81 bpm 12/01/2021 45 [facility] [place] Pulse Oximetry 92 % 12/01/[address] [facility] [place] Respiratory rate 18 br/min 12/01/2021 45 [facility] [place] Systolic BP 130 mm[Hg] 12/01/2021 45 [facility] [place] Diastolic BP 83 mm[Hg] 12/01/2021 45 [facility] [place] Mean BP 98 mm[Hg] 12/01/2021 45 [facility] [place] Temperature (F) 97.9 [degF] 12/01/2021 45 [facility] [place] Oxygen FiO2 21 % 12/01/2021 45 [facility] [place] Respiratory rate 16 br/min 12/01/2021 45 [facility] [place] Peripheral Pulse Rate 87 bpm 12/01/2021 45 [facility] [place] Pulse Oximetry 93 % 12/01/[address] [facility] [place] Oxygen FiO2 21 % 12/01/2021 45 [facility] [place] Oxygen FiO2 21 % 12/01/2021 45 [facility] [place] Temperature (F) 97.9 [degF] 12/01/2021 45 [facility] [place] Systolic BP 124 mm[Hg] 12/01/2021 45 [facility] [place] Diastolic BP 78 mm[Hg] 12/01/2021 45 [facility] [place] Mean BP 93 mm[Hg] 12/01/2021 45 [facility] [place] Weight (kg) 116.9 kg 12/01/2021 45 [facility] [place] Oxygen flow 1 L/min 12/01/2021 45 [facility] [place] Oxygen flow 1 L/min 11/30/2021 45 [facility] [place] Oxygen flow 1 L/min 11/30/2021 45 [facility] [place] Weight (kg) 116.3 kg 11/30/2021 45 [facility] [place] Weight (kg) 118.3 kg 11/29/2021 45 [facility] [place] HeightLength (cm) 175.6 cm 11/28/2021 45 [facility] [place] Body Mass Index 38.2 kg/m2 11/28/2021 45 [facility] [place] Dose calculation weight (kg) 117.8 kg 11/28/2021 45 [facility] [place] Heart Rate Monitored 94 bpm 11/28/2021 45 [facility] [place] Heart Rate Monitored 93 bpm 11/28/2021 45 [facility] [place] Heart Rate Monitored 88 bpm 11/28/2021 45 [facility] [place] Apical Heart Rate 94 bpm 11/28/2021 45 [facility] [place] Dose calculation weight (kg) 117.8 kg 11/28/2021 45 [facility] [place] HeightLength (cm) 175.6 cm 11/28/2021 45 [facility] [place] Body Mass Index 38.2 kg/m2 11/28/2021 45 [facility] [place] Body Weight Calculated 71.008 11/28/2021 45 [facility] [place] Encounters Location Location Details Encounter Type Encounter Number Reason For Visit Attending Provider ADM Date DC Date Status Source 45 45 [facility] [place] [id number] CHRONIC OBSTRUCTI VE PULMONARY DISEASE (J44.1), INFLUENZA A (J10.1) Elias Kay 11/28 Active [facility] [place] Procedures Procedure Code Date Perfomer Comments Source ROUTINE VENIPUNCTURE [id number] 12/01/2021 45 [facility] [place] ROUTINE VENIPUNCTURE 33775 11/30/2021 45 [facility] [place] ROUTINE VENIPUNCTURE 03023 11/29/2021 45 [facility] [place] ROUTINE VENIPUNCTURE 16517 11/28/2021 45 [facility] [place] ROUTINE VENIPUNCTURE 31142 11/28/2021 45 [facility] [place] Plan of Care Plan of Care Date Source Extracted from:Title: Hospit alist Discharge Note Author: MD Kay Tom-Oliver Date: 12/01/21 History of Present Illness 76-year-old male with a medical history notable for DVT, 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 Patient reports 2 weeks prior to?departing on vacation?from [place]?that he received his influenza vaccine with COVID booster. ?He arrived here on 17 November,?and then 3 days ago with?aforementioned symptoms. ?After initial treatments in the ER the patient is feeling better, but continues to desat?with ambulation, requiring supplemental O2 to maintain appropriate O2 saturation.? Otherwise, patient denies fever or chills,?myalgias. ?in the emergency department patient was afebrile, heart rate in the 80s and 90s, blood pressure normal, respiratory rate as high as 25 with an O2 saturation of 88% on room air. ?Patient CBC was largely unremarkable with the exception of a mild thrombocytopenia, metabolic panel demonstrated an elevated BUN to creatinine, 26-0.8 respectively ratio 32.5. ?Lactate was normal. ?INR 3.4. ?Influenza positive. ?Patient received Lasix 40 mg x 2, mag 2 g, Solu-Medrol 125, 75 mg of Tamiflu as well as 3 duo nebs in the emergency department. ? Course Patient was admitted and Dr Morris [...] f/u with his PCP in 1 week. ? Advance care planning including the explanation and discussion of advance directives such as standard forms (with completion of such forms, when performed) by the physician or other qualified health professional; first 30 minutes, hiyi-jg-zfmx with the patient, family member(s) and/or surrogate FULL CODE ? Discharge Date: ?_ ? Discharge Location: ?_ ? Addendum by MD Rahul, [facility] on December 01 2021 12:57:56 HST Discharge Home f/u with PCP 1 week Cardiac diet Extracted from:Title: Shortness of breath Author: MD Randy, Shahbaz Trujillo Date: 11/28/21 Impression and Plan Diagnosis Acute [...] plan, Patient indicated understanding of instructions. 12/02/[address] [place] [address] Social History Social History Date Source Social History TypeResponse Smoking Status Is there a smoker in the household? No; *Do you have concerns about tobacco use in household? No; Never (less than 100 in lifetime); Never; *Are you ready to quit? N/A entered on: 11/28/21 Sex Male [address] [place] [address] Social History TypeResponse Smoking Status Is there a smoker in the household? No; *Do you have concerns about tobacco use in household? No; Never (less than 100 in lifetime); Never; *Are you ready to quit? N/A entered on: 11/28/21 Sex Male [address] [place] [address] Social History TypeResponse Smoking Status Is there a smoker in the household? No; *Do you have concerns about tobacco use in household? No; Never (less than 100 in lifetime); Never; *Are you ready to quit? N/A entered on: 11/28/21 Sex Male [address] [place] [address]
--- OUTSIDE RECORDS SUMMARY | 2024-01-21 12:31 | XMS_ITS | Data Portability ---
Author Organization [place] [facility] Address [address] [place] [id number] Assessment Encounter Date Assessment Date Assessment LastModified by Organization Details LastModified Time 02/06/2022 02/06/2022 76 YO M patient establishing care with . PMHx DVT/PE, CAD, COPD, HTN, CHF, sleep apnea, and HDL. He complains of sob, fever, and chills x 1-2 days. He is compliant with maintenance and rescue inhaler. Has oxygen for as needed basis only. Per patient procedure of DVT was done which included a guidewire being placed thirty years ago . Remnants of that guidewire traveled to his heart and required cardiac surgery. He was told if he ever had a fever that was unexplained it is possible that he has an infection from remnants that are still in his heart. Of note: He was diagnosed with influenza and pneumonia in November. VS: T:100.2. HR: 77 BP 142/78, RR: 24 02: 89 % on RA Exam: Patient sitting in recliner, pursed lip breathing, use of accessory muscles, tachypnic with oxygen fluctuating from 88-89% on RA. Auscultation with decreased lung sounds. Heart RRR, Abdomen obese, BLE with pitting edema R>L with venous stasis. Test: Negative Covid rapid. Plan: -PVIX used to gather information pertinent for decision making. Information gathered is as follows: He underwent removal of retained remnants of the guidewire on October 22, 2016, by Dr. Venancio Deras for several segments of a retained guidewire which had been placed some 27 years earlier as part of an inferior vena cava filter placement. The guidewire had extended from the right internal jugular down to the inferior vena cava filter. There were 3 pieces seen in the heart. Two short pieces about 2 inches in length each and then one long piece which appeared to continue to be attached to the right internal jugular. That long segment appeared to cross the tricuspid valve. One remnant of the guidewire was found protruding from the inferior wall of the right ventricle. This was easily removed and resulted in no bleeding from that site. The long remnant which came down from the superior vena cava was found to be remarkably adherent and it was decided to go on cardiopulmonary bypass to remove this along with the other short remnant which was found in the atrium. 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 Postoperatively, the patient had small left pleural effusion versus chronic left lower lobe pneumonia. The patient continues to have chronic DVT with progression of the deep vein thrombosis on the right, now occlusive in the peroneal vein with new occlusive and nonocclusive thrombus in the femoral vein. Patient continues to be anticoagulated with Coumadin. -Due to patients current physical finding which include increase temp, abnormal oxygen saturation, and increased breathing effort [facility] was contacted. Supplemental oxygen was administered until EMS arrived. Verbal and written report given to [facility]. Time On Scene with Patient: 01:05:55 - Emergent 911 transport: Patient is critically ill and required immediate transport by a 911/emergency vehicle due to critical illness requiring immediate intervention [email or web address] Not available 02/12/2022 09:40:35 Plan of Treatment Reminders Order Date Submit Date Provider Last Modified By Organization Details Last Modified Time Details Appointments None recorded. Lab rapid SARS CoV 2 Ag, QL IA, respiratory specimen 2021 022 stephen [email or web address] [facility], [address] [place] [address], [phone], 16:28:01 Referral None recorded. Procedures None recorded. Surgeries None recorded. Imaging None recorded. Medication Orders None recorded. Patient TargetsNo targets recorded. Patient Instructions Encounter Date Encounter Id Patient Instructions Last Modified By Organization Details Last Modified Time 02/06/2022 [id number] shortness of breath: care instructions [email or web address] [id number] Not available 02/06/2022 16:01:31 [facility] yo [facility] We cannot always find the exact cause of your symptoms during your initial visit. Please follow up with your primary care provider or specialist {{within 12-24 hours within 24-48 hours within 2-3 days* as needed}} to be rechecked or seek medical attention if your symptoms do not go away or get worse. If you develop any new or worsening symptoms and need after hours care, please go to nearest ER and/or call 911. If you have additional concerns or develop a change in your condition between 8am-10pm, please call [facility] at [phone] to help navigate your care. [email or web address] [id number] Not available 02/07/2022 20:23:27 Reason for Referral None Reported. Results Created Date Observation Date Name Description Value Unit Range Abnormal Flag Note LastModifiedBy Organization Detail LastModifiedTime 02/07/20 22 02/06/2022 rapid SARS CoV 2 Ag, QL IA, respi rator y speci men Covid-19 (ref: neg) negati ve Not Available [facility] [address] [place], [address], 02/06/2022 16:02:13 02/07/20 22 02/06/2022 rapid SARS CoV 2 Ag, QL IA, respi rator y speci men Control Visual ized/V alid Not Available [facility] [address] [place], [address], 02/06/2022 16:02:13 02/07/20 22 02/06/2022 rapid SARS CoV 2 Ag, QL IA, respi rator y speci men Location [facility], [facility] Vivian keenan s , [address] [place] [address], [id number] Not Available [facility] [address] [place], [address], 02/06/2022 16:02:13 Result Notes None recorded. Medical Equipment None Reported. Allergies Allergen ID Allergen Name Allergen Category Reaction Reaction Severity Criticality Documentation Date Start Date Code Code System Note Provider Name and Address Organization Details Recorded Time 636503 Augmentin medicatio n Not available Not available Not available 02/06/2022 96098 2 RxNorm August JOSE Gu [address] [place], [address], [place] [facility] 15:54:26 Medications Name Sig Start Date Stop Date Status Note LastModified by Organization Details LastModified Time furosemide 40 mg tablet TAKE 1 TABLET BY MOUTH TWICE A DAY active Not Available Not Available No t Available prednisone 10 mg tablet TAKE 4 TABS DAILY X 1 DAYS 3 TABS DAILY X 2 DAYS 2 TABS DAILY X 2 DAYS 1 TAB DAILY X 2 DAYS 02/06 completed Not Available Not Available Not Available atorvastati n 20 mg tablet TAKE 1 TABLET BY MOUTH EVERY DAY active Not Available Not Available No t Available albuterol sulfate 2.5 mg/3 mL (0.083 %) solution for nebulizatio n INHALED 2.5 MG (3 ML) EVERY 4 TO 8 HOURS NEEDED FOR SHORTNESS OF BREATH OR WHEEZING active Not Available Not Available No t Available cefpodoxime 200 mg tablet TAKE 1 TABLET BY MOUTH EVERY 12 HOURS FOR 7 DAYS 02/06 completed Not Available Not Available Not Available potassium chloride ER 10 mEq tablet,exte nded release TAKE 1 TABLET BY MOUTH EVERY DAY active Not Available Not Available No t Available doxycycline monohydrate 100 mg tablet TAKE 1 TABLET BY MOUTH TWICE A DAY FOR 7 DAYS 02/06 completed Not Available Not Available Not Available cephalexin 500 mg capsule TAKE 1 CAPSULE BY MOUTH 3 TIMES DAILY (WITH MEALS) FOR 7 DAYS. 02/06 completed Not Available Not Available Not Available oseltamivir 75 mg capsule 02/06 completed Not Available Not Available Not Available prednisone 50 mg tablet 02/06 completed Not Available Not Available Not Available warfarin 5 mg tablet PLEASE SEE ATTACHED FOR DETAILED DIRECTION S active Not Available Not Available No t Available flecainide 50 mg tablet TAKE 1 TABLET BY MOUTH TWICE A DAY active Not Available Not Available No t Available diltiazem CD 120 mg capsule,ext ended release 24 hr TAKE 1 CAPSULE BY MOUTH EVERY DAY active Not Available Not Available No t Available codeine 10 mg-guaifene sin 100 mg/5 mL oral liquid TAKE 10 ML 4 TIMES A DAY NEEDED FOR COUGH 02/06 completed Not Available Not Available Not Available methylpredn isolone 4 mg tablets in a dose pack TAKE 6 TABLETS ON DAY 1 DIRECTED ON PACKAGE AND DECREASE BY 1 TAB EACH DAY FOR A TOTAL OF 6 DAYS 02/06 completed Not Available Not Available Not Available albuterol sulfate HFA 90 mcg/actuati on aerosol inhaler active Not Available Not Available Not Available sodium chloride 0.9 % for nebulizatio n USE 1 ML INHALED EVERY 4 HOURS active Not Available Not Available No t Available doxycycline hyclate 100 mg tablet TAKE 1 TABLET BY MOUTH TWICE A DAY X 2 DAYS 02/06 completed Not Available Not Available Not Available amoxicillin 875 mg-potassiu m clavulanate 125 mg tablet TAKE 1 TABLET BY MOUTH TWICE A DAY FOR 7 DAYS 02/06 completed Not Available Not Available Not Available levalbutero l concentrate 1.25 mg/0.5 mL solution for nebulizatio n INHALE 1.25 MG (0.5 ML) EVERY 4 HOURS WHILE AWAKE FOR COPD FOR 30 DAYS active Not Available Not Available No t Available Combivent Respimat 20 mcg-100 mcg/actuati on solution for inhalation TAKE 2 PUFF(S) (INHALATI ON) 4 TIMES PER DAY FOR 14 DAYS active Not Available Not Available No t Available Breo Ellipta active Not Available Not Available Not Available fluticasone furoate 200 mcg-vilante rol 25 mcg/dose inhalation powder USE 1 INHALATIO N DAILY active Not Available Not Available No t Available Wixela Inhub 500 mcg-50 mcg/dose powder for inhalation INHALE 1 PUFF INTO LUNGS TWICE A DAY FOR 30 DAYS 02/07 completed Not Available Not Available Not Available Vitals Date Recorded Body temperature Respiratory rate Oxygen saturation Oxygen saturation in Arterial blood by Pulse oximetry Heart rate Systolic blood pressure Diastolic blood pressure Provider Name and Address Organization Details Last Updated DateTime 2 100.2 [degF] 24 /min 89 % 89 % 77 /min 142 mm[Hg] 78 mm[Hg] August JOSE Gu [address] [place], [address], [place] [facility] 2 20:29:19 Social History None recorded. Functional Status None recorded. Mental Status None recorded. Family History Nothing Reported. Medical History Condition Response Diabetes N Coronary Artery Disease Y CHF Y Parkinson's Disease N Cancer N Dementia N Stroke N Depression N Asthma N COPD Y Hypothyroidism N High Cholesterol Y Rheumatoid Arthritis N Pulmonary Embolism N Hypertension Y A-fib N Osteoporosis N Kidney Disease N Past Encounters Encounter ID Performer Location Encounter Start Date Encounter Closed Date Diagnosis/Indication Diagnosis SNOMED-CT Code Diagnosis ICD10 Code [id number] August JOSE Gu [facility] [address] [place] [address] 02/06/2022 15:51:42 02/13/2022 11:31:27 Dyspnea at rest 243239664 R06.00 Acute hypo xemic respiratory failure 869740237 J96.01 Health Concerns Section Related Observation LastModified by Organization Detai ls LastModified Time None Recorded Concern Status LastModified by Organization Details LastModified Time None Recorded Advance Directives Directive None Recorded Payers Encounter Date Sequence Insurance Name Policy Number Policy Contreras Covered Member ID Contreras Member ID Guarantor Name 02/06/2022 2 [place]: [employer] Jay Gonzales [id number] Jay Gonzales 02/06/[address] [facility] (MEDICARE REPLACEMENT/A DVANTAGE - PPO) [id number] Jay Gonzales [id number] Jay Gonzales Notes Date Note Type Note Provider Name and Address Organization Details Recorded Time 02/06/2022 text/html 76 YO M patient establishing care with . PMx DVT/PE, CAD, COPD, HTN, CHF, sleep apnea, and HDL. He complains of sob, fever, and chills x 1-2 days. He is compliant with maintenance and rescue inhaler. Has oxygen for as needed basis only. Per patient procedure of DVT was done which included a guidewire being placed thirty years ago . Remnants of that guidewire traveled to his heart and required cardiac surgery. He was told if he ever had a fever that was unexplained it is possible that he has an infection from remnants that are still in his heart. Of note: He was diagnosed with influenza and pneumonia in November. Adrienne Gu NP [address], [place], [address], [place] [facility] 02/12/2022 09:40:47
== END 2024-01-14 10:57 | disposition home or self-care (01) ==
PROVIDERS: PCP Internal Medicine; Visit Provider Internal Medicine Cardiovascular Disease
DX: I48.92 Unspecified atrial flutter (principal); I50.30 Unspecified diastolic (congestive) heart failure; I34.0 Nonrheumatic mitral (valve) insufficiency
CPT/HCPCS: 93010; 99214; G2211

== ENCOUNTER → 2024-01-14 10:24 | Outpatient (BNVA) | payer MEDICARE, SELFPAY | PROVIDERS: PCP Internal Medicine; Visit Provider Internal Medicine Cardiovascular Disease | DX: I48.92 Unspecified atrial flutter (principal); I50.30 Unspecified diastolic (congestive) heart failure; I34.0 Nonrheumatic mitral (valve) insufficiency; Z79.899 Other long term (current) drug therapy | CPT/HCPCS: 93005; 99212 ==

== ENCOUNTER 2024-01-22 13:02 | Outpatient (AMB) | payer MEDICARE, SELFPAY ==
[2024-01-22 13:13] VITALS: BP 122/60; PULSE 70; O2SAT 96; BMI 36.9
--- NOTE | 2024-01-22 13:13 | A.OFFVIS_ITS ---
Vital Signs 01/22/24 13:13 Height 5 ft 9 in Weight 250 lb 3.594 oz BMI 36.9 BP 122/60 Pulse 70 Pulse Oximetry (%) 96 Oxygen Delivery Method Room Air Intake Visit Reasons: Obstructive sleep apnea Intake Note: pt is here for follow up and states he is feeling good, and had a cardioversion on 12/31 and feels good. Please send in refill for albuterol hfa for a 90 days supply#3 x1 refill. Release Coordinator Required: No Allergies albuterol Adverse Reaction (Intermediate, Verified 01/22/24 13:28) Palpitations amoxicillin [From Augmentin] Adverse Reaction (Intermediate, Verified 01/22/24 13:28) Nausea and Vomiting, dizziness clavulanic acid [From Augmentin] Adverse Reaction (Intermediate, Verified 01/22/24 13:28) Nausea and Vomiting, dizziness Medication List - Last Reconciled 01/22/24 by Cheli Clarke MD acetaminophen 1,000 mg PO Q6H PRN atorvastatin 20 mg PO DAILY azithromycin 250 mg PO .MWF 90 days diltiazem HCl CD 120 mg PO DAILY docusate sodium 200 mg PO DAILY flecainide 100 mg PO Q12H fluticasone propion-salmeterol 500-50 mcg/dose (Wixela Inhub) 1 inh inhalation BID 90 days furosemide 80 mg (2 x 40 mg) PO QAM levalbuterol HCl 1.25 mg (0.5 mL) inhalation RQ4H WHILE AWAKE 90 days multivitamin 1 tab PO DAILY potassium chloride ER 10 mEq PO DAILY prednisone 5 mg PO 4XW 30 days sennosides (senna) 25.8 mg PO BEDTIME warfarin See Protocol 7.5 mg orally 7.5 X 4 DAYS/ 5MG X 3 DAYS; Do you need a note to return to daycare/school/sports/work: No HPI HPI Obstructive sleep apnea: Details: 78 years old very pleasant gentleman is here for his 4 months follow-up for COPD and DEREK. Doing very well as long as he is using CPAP regularly which he does every night up to about 6 hours per night. He has no issues with the CPAP mask or device. Has only mild intermittent cough no expectoration. He had cardioversion last month and has been doing very well. He has had no respiratory infection. He stays on azithromycin 250 mg 3 days a week, and still taking prednisone 5 mg daily 5 days a week. [facility] Medical History Hypoventilation Restrictive airway disease (HFpEF) heart failure with preserved ejection fraction CHF exacerbation Cough Paroxysmal atrial fibrillation Lymphedema of both lower extremities DEREK on CPAP Obesity (BMI 35.0-39.9 without comorbidity) COPD (chronic obstructive pulmonary disease) Varicose veins of right lower extremity with inflammation Surgical History History of appendectomy Family History Father No problems noted. Mother No problems noted. Sister No problems noted. Sister No problems noted. Son No problems noted. Daughter No problems noted. Social History Household Members: Spouse Housing: House Are you a primary nanny caregiver to a significant other at home: No Do you presently have visiting nurse or other home services: No Alcohol intake: current Alcohol intake frequency: holidays/special occasions only Alcohol type: beer Comment: PT USES CALL LIGHT APPROPRIATELY Patient Tobacco Use Status: Former Tobacco user service: Yes Current occupational status: retired Review of Systems Const All systems reviewed & are unremarkable except as noted in HPI and below Eyes Reports no additional complaints ENT Reports nasal congestion (Mild intermittent) Card Denies chest pain, Denies irregular heart rhythm, Reports leg edema and Reports dyspnea on exertion Resp Reports as per HPI and Reports dyspnea on exertion GI Reports no additional complaints Reports no additional complaints Musc Reports no additional complaints Skin/Breast Reports system reviewed and no additional complaints, except as documented Neuro Reports no additional complaints Psych Reports no additional complaints Physical Exam Vital Signs: Last Vital Signs Pulse 70 01/22/24 13:13 BP 122/60 01/22/24 13:13 Pulse Ox 96 01/22/24 13:13 Oxygen Delivery Method Room Air 01/22/24 13:13 BMI result Body Mass Index 36.9 Const General: comfortable, no acute distress, alert and awake Orientation/consciousness: patient oriented x3 HEENT Head: Yes normal to inspection General nose exam: No nasal polyps present and No nasal discharge present Face and sinus: Yes sinuses nontender Mouth: oropharynx abnormals (Narrow and crowded, Mallampati class 3) Throat: Yes posterior oropharynx normal Eyes General: appearance normal, both eyes and all related structures Neck Neck: Yes normal visual inspection, Yes no lymphadenopathy, Yes trachea midline and Yes no JVD Thyroid: Thyroid normal Chest Chest palpation & inspection: normal inspection of the chest (Except for midline scar from previous surgery.), normal palpation of entire chest wall and no tenderness Resp Other: Percussion note resonant, breath sounds are distant on both sides, and decreased especially over the LEFT BASE. Prolonged expiratory phase. There are no wheezes or crepitations. Cardio Palpation: normal PMI Rate: regular rate Rhythm: regular rhythm Heart sounds: no gallops and Murmur heart sound present (A LOUD SYSTOLIC MURMUR ALONG THE LEFT STERNAL BORDER) GI Palpation (GI): Soft to palpation, nontender, No hepatosplenomegaly present, no masses and Other GI palpation findings present (Abdomen is the obese and protuberant) Auscultation: normal bowel sounds Back/Spine/Pelvis Thoracic/Lumbar Spine: thoracic and lumbar spine normal to inspection Skin General skin exam: no rashes or lesions noted Neuro General: patient oriented x3 and no focal motor deficits Cranial nerves: Yes CN's II-XII intact bilaterally Extrem General: Yes normal to inspection, Yes no calf tenderness and Yes venous stasis dermatitis (Both legs, more severe on the right side) Psych Mental Status: mental status grossly normal Speech and movement: Normal speech and movement present Results Reviewed Results Reviewed: Compliance report for the last 30 nights. Is reviewed He has used 30/30 nights., 100% Average usage 6 hours per night. .There is no significant air leak Residual AHI 1.7 Assessment & Plan Assessment & Plan (1) COPD (chronic obstructive pulmonary disease): Comment: COPD IS REMAINING QUITE STABLE WITH THE REGULAR REGIMEN,. HE HAS HAD NO INCREASE IN RESPIRATORY SYMPTOMS. Code(s): J44.9 - Chronic obstructive pulmonary disease, unspecified Category: Medical Qualifiers: COPD type: COPD with acute exacerbation Qualified Code(s): J44.1 - Chronic obstructive pulmonary disease with (acute) exacerbation Plan: Wixela dose decreased to 250-51 inhalation b.i.d. Levalbuterol solution in the nebulizer Q 4-6 hours p.r.n. at home Levalbuterol HFA 2 puffs Q 4-6 hours p.r.n. for outdoors. Prednisone 5 mg , reduced to 3 days a week ( MWF ) Continue azithromycin 250 mg 3 days a week (2) Restrictive airway disease: Comment: HE HAS CHRONICALLY ELEVATED LEFT HEMIDIAPHRAGM, THIS CONTRIBUTES TO HIS RESTRICTIVE LUNG DISORDER. Code(s): J98.4 - Other disorders of lung Category: Medical Plan: Continue doing deep breathing exercises 3 times day (3) Hypoventilation: Comment: HE HAS CHRONIC HYPOVENTILATION , WITH HYPERCAPNIA. Part of COPD as well as DEREK , well controlled with the use of CPAP + 15 [facility] Code(s): R06.89 - Other abnormalities of breathing Category: Medical Plan: Continue using CPAP every night regularly, try to use between 6-7 hours per night. Medications: New fluticasone propion-salmeterol 250-50 mcg/dose (Wixela Inhub) 1 inh inhalation Q12H 30 days 60 ea 5RF copd levalbuterol tartrate 45 mcg/actuation 2 puffs inhalation Q4-6H 30 days PRN 15 grams 5RF shortness of breath Coding Level of Care Code Est Pt Level 3 (22257) Diagnoses COPD (chronic obstructive pulmonary disease) J44.1 COPD type: COPD with acute exacerbation Restrictive airway disease J98.4 Hypoventilation R06.89
--- OUTSIDE RECORDS SUMMARY | 2024-01-23 02:22 | XMS_ITS | Continuity of Care Document ---
Author Name [facility] Organization [facility] Care Team Providers Care [employer]cur[employer] Sales Consultant Name Role Phone [facility] Unavailable Unavailable Problems Problem Status Onset Date Classification Date Reported Comments Source Acute embolism and thrombosis of unspeci Active 11/28/2021 [facility] Acute respiratory failure with hypoxia Active 11/28/2021 12/02/2021 45 [facility] COPD exacerbation Active 11/28/2021 12/02/2021 45 [facility] Influenza A Active 11/28/2021 12/02/2021 45 [facility] Paroxysmal atrial fibrillation Active 11/28/2021 12/02/2021 45 [facility] Anticoagulated Active 11/28/2021 12/02/2021 45 [facility] Morbid obesity Active 11/28/2021 12/02/2021 45 [facility] Shortness of breath Active [facility] Medications Medication Details Route Status Patient Instructions Ordering Provider Order Date Source guaiFENesin 600 mg oral tablet, extended release = 1 Tab, ORAL, BID, X 5 Day(s), # 10 Tab, 0 Refill(s), Acute, Pharmacy: [facility], 175.6, cm, 11/28/21 6:49:00 HST, Height/Length (cm), 117.8, kg, 11/28/21 6:49:00 HST, Dose calculation weight (kg) Active 022 45 [facility] Albuterol (Eqv-Proventil HFA) 90 mcg/inh inhalation aerosol 2 Puff, INH, Q6H, # 8.5 gm, 0 Refill(s), Maintenance, Pharmacy: [facility], 175.6, cm, 11/28/21 6:49:00 HST, Height/Length (cm), 117.8, kg, 11/28/21 6:49:00 HST, Dose calculation weight (kg) Active [facility] Tamiflu 75 mg oral capsule = 1 Cap, ORAL, BID, X 2 Day(s), # 4 Cap, 0 Refill(s), [facility], cm, 11/28/21 6:49:00 HST, Height/Length (cm), 117.8, kg, 11/28/21 6:49:00 HST, Dose calculation weight (kg) Active [facility] predniSONE 50 mg oral tablet = 1 Tab, ORAL, DAILY, X 5 Day(s), # 5 Tab, 0 Refill(s), Acute, Pharmacy: [facility], 175.6, cm, 11/28/21 6:49:00 HST, Height/Length (cm), 117.8, kg, 11/28/21 6:49:00 HST, Dose calculation weight (kg) Active [facility] multivitamin oral 1 Tab, ORAL, DAILY, OTC, Maintenance Active [facility] Senna = 1 Tab, ORAL, DAILY, OTC, Maintenance Active [facility] warfarin 5 mg oral tablet = 1.5 Tab, ORAL, QTThSa, Maintenance Active [facility] PREPACK Albuterol (0.83 mg/mL) 2.5mg/3mL #6 3 mL, INH, Q4H, PRN Shortness of breath/wheezin g, Maintenance Active [facility] Wixela Inhub 500 mcg-50 mcg inhalation powder 1 Inhalation, INH, BID, Maintenance Active [facility] warfarin 5 mg oral tablet = 1 Tab, ORAL, QSuMWF, 0 Refill(s), Maintenance Active [facility] DilTIAZem (Eqv-Cardizem CD) 120 mg/24 hours oral capsule, extended release = 1 Cap, ORAL, DAILY, 0 Refill(s), Maintenance Active [facility] Klor-Con 10 mEq oral tablet, extended release = 1 Tab, ORAL, DAILY, 0 Refill(s), Maintenance Active 45 [facility] flecainide 50 mg oral tablet = 1 Tab, ORAL, Q12H, 0 Refill(s), Maintenance Active 45 [facility] furosemide 40 mg oral tablet = 1 Tab, ORAL, BID, 0 Refill(s), Maintenance Active 45 [facility] atorvastatin 20 mg oral tablet = 1 Tab, ORAL, DAILY, 0 Refill(s), Maintenance Active 45 [facility] Allergies, Adverse Reactions, Alerts Substance Category Reaction Severity Reaction type Status Date Reported Comments Source Augmentin Assertion vomiting, dizziness Drug allergy Active 45 [facility] Results Order Name Results Value Reference Range Date Interpretation Comments Source AutoDiff * Auto Neutrophil Percent 67.8 % 40.0 - 80.0 12/01 [facility] AutoDiff * Auto Neutrophil Absolute 6.1 K/uL 12/01 [facility] AutoDiff * Auto Lymphocyte Percent 13.0 % 18.0 - 45.0 12/01 L [facility] AutoDiff * Auto Lymphocyte Absolute 1.2 K/uL 12/01 [facility] AutoDiff * Auto Monocyte Percent 19.0 % 3.0 - 12.0 12/01 H [facility] AutoDiff * Auto Monocyte Absolute 1.7 K/uL 12/01 [facility] AutoDiff * Auto Eosinophil Percent 0.1 % - <=7.0 12/01 [facility] AutoDiff * Auto Eosinophil Absolute 0.0 K/uL 12/01 [facility] AutoDiff * Auto Basophil Percent 0.1 % - <=2.0 12/01 [facility] AutoDiff * Auto Basophil Absolute 0.0 K/uL 12/01 [facility] AutoDiff * Sex assigned at Male 12/01 [facility] CBC WBC 9.0 K/uL 3.5 - 10.4 10/21 /2022 NA [facility] CBC RBC 4.83 M/uL 4.00 - 6.20 12/01 NA [facility] CBC HGB 14.2 gm/dL 14.0 - 18.0 12/01 NA [facility] CBC HCT 42.7 % 42.0 - 52.0 12/01 NA [facility] CBC MCV 88.4 fL 82.0 - 101.0 12/01 NA [facility] CBC MCH 29.4 pg 26.0 - 34.0 12/01 NA [facility] CBC MCHC 33.2 gm/dL 32.0 - 36.0 12/01 NA [facility] CBC RDW 15.2 % 11.0 - 15.0 12/01 H [facility] CBC PLT 127 K/uL 140 - 440 12/01 L [facility] CBC MPV 8.5 fL 7.4 - 11.4 12/01 NA [facility] CBC Sex assigned at Male 12/01 NA [facility] CBC Manual Diff Y/N SReview 12/01 NA [facility] CMP Sodium Level 143 mmol/L 136 - 145 12/01 NA [facility] CMP Potassium Level 3.8 mmol/L 3.5 - 5.1 12/01 NA [facility] CMP Chloride Level 101 mmol/L 98 - 107 12/01 NA [facility] CMP CO2/Carbon Dioxide 34.6 mmol/L 21.0 - 32.0 12/01 H [facility] CMP Anion Gap 7 mmol/L 4 - 16 12/01 NA [facility] CMP Glucose, Random 90 mg/dL 70 - 95 12/01 NA Reference ranges are based on a fasting specimen. [facility] CMP BUN 33 mg/dL 7 - 20 12/01 H [facility] CMP Creatinine 0.8 mg/dL 0.9 - 1.3 12/01 L [facility] CMP BUN/Creat Ratio 41.2 12/01 [facility] CMP Osmolality, Calculated 303 12/01 [facility] Calcium Level 9.0 mg/dL 8.6 - 10.0 12/01 [facility] CMP Total Protein 6.4 gm/dL 6.4 - 8.2 12/01 [facility] CMP Albumin Level 3.7 gm/dL 3.5 - 5.0 12/01 [facility] CMP Globulin Level 2.7 gm/dL 2.0 - 4.0 12/01 [facility] CMP A/G Ratio 1.4 1.1 - 2.2 12/01 [facility] CMP ALP 61 units/L 38 - 126 12/01 [facility] CMP ALT 26 units/L 10 - 40 12/01 [facility] CMP AST 16 units/L 15 - 41 12/01 [facility] CMP Bilirubin, Total 0.6 mg/dL - <=1.0 12/01 [facility] CMP GFR - Non >60 mL/min/1.73 m2 12/01 NA <60 = Renal Insufficiency , <15 = Renal Failure. This equation is not applicable to person's under 18 years of age.eGFR calculation based on the IDSC traceable four-paramete r MDRD equation. [facility] CMP GFR - >60 mL/min/1.73 m2 12/01 [facility] C[facility] Sex assigned at Male 12/01 [facility] PT PT - Patient 25.1 sec 11.8 - 13.8 12/01 H [facility] PT PT - INR 2.42 12/01 INDICATION [...] 2.5 - 3.5 of recurrent myocardial infarction [facility] PT Sex assigned at Male 12/01 NA [facility] SReview Anisocytosis 1+ None 12/01 * [facility] SReview RBC Morphology Abnormal Normal 12/01 * [facility] SReview Sex assigned at Male 12/01 NA [facility] AutoDiff * Auto Neutrophil Percent 71.4 % 40.0 - 80.0 11/30 NA [facility] AutoDiff * Auto Neutrophil Absolute 7.3 K/uL 11/30 NA [facility] AutoDiff * Auto Lymphocyte Percent 10.6 % 18.0 - 45.0 11/30 L [facility] AutoDiff * Auto Lymphocyte Absolute 1.1 K/uL 11/30 NA [facility] AutoDiff * Auto Monocyte Percent 17.8 % 3.0 - 12.0 11/30 H [facility] AutoDiff * Auto Monocyte Absolute 1.8 K/uL 11/30 NA [facility] AutoDiff * Auto Eosinophil Percent 0.1 % - <=7.0 11/30 NA [facility] AutoDiff * Auto Eosinophil Absolute 0.0 K/uL 11/30 NA [facility] AutoDiff * Auto Basophil Percent 0.1 % - <=2.0 11/30 NA [facility] AutoDiff * Auto Basophil Absolute 0.0 K/uL 11/30 NA [facility] AutoDiff * Sex assigned at Male 11/30 NA [facility] CBC WBC 10.2 K/uL 3.5 - 10.4 11/30 NA [facility] CBC RBC 4.66 M/uL 4.00 - 6.20 11/30 NA [facility] CBC HGB 13.9 gm/dL 14.0 - 18.0 11/30 L [facility] CBC HCT 41.3 % 42.0 - 52.0 11/30 L [facility] CBC MCV 88.7 fL 82.0 - 101.0 11/30 NA [facility] CBC MCH 29.8 pg 26.0 - 34.0 11/30 NA [facility] CBC MCHC 33.5 gm/dL 32.0 - 36.0 11/30 NA [facility] CBC RDW 15.3 % 11.0 - 15.0 11/30 H [facility] CBC PLT 121 K/uL 140 - 440 11/30 L [facility] CBC MPV 7.9 fL 7.4 - 11.4 11/30 NA [facility] CBC Manual Diff Y/N SReview 11/30 NA [facility] CBC Sex assigned at Male 11/30 NA [facility] CMP Sodium Level 138 mmol/L 136 - 145 11/30 NA [facility] CMP Potassium Level 3.9 mmol/L 3.5 - 5.1 11/30 NA [facility] CMP Chloride Level 99 mmol/L 98 - 107 11/30 NA [facility] CMP CO2/Carbon Dioxide 33.80 mmol/L 21.00 - 32.00 11/30 H [facility] CMP Anion Gap 5 mmol/L 4 - 16 11/30 NA [facility] CMP Glucose, Random 97 mg/dL 70 - 95 11/30 H Reference ranges are based on a fasting specimen. [facility] CMP BUN 33 mg/dL 7 - 20 11/30 H [facility] CMP Creatinine 0.7 mg/dL 0.9 - 1.3 11/30 L [facility] CMP BUN/Creat Ratio 47.1 11/30 NA [facility] CMP Osmolality, Calculated 293 11/30 NA [facility] CMP Calcium Level 8.7 mg/dL 8.6 - 10.0 11/30 NA [facility] CMP Total Protein 6.3 gm/dL 6.4 - 8.2 11/30 L [facility] CMP Albumin Level 3.8 gm/dL 3.5 - 5.0 11/30 NA [facility] CMP Globulin Level 2.5 gm/dL 2.0 - 4.0 11/30 NA [facility] CMP A/G Ratio 1.5 1.1 - 2.2 11/30 NA [facility] CMP ALP 56 units/L 38 - 126 11/30 NA [facility] CMP ALT 21 units/L 10 - 40 11/30 NA [facility] CMP AST 17 units/L 15 - 41 11/30 NA [facility] CMP Bilirubin, Total 0.6 mg/dL - <=1.0 11/30 NA [facility] CMP GFR - Non >60 mL/min/1.73 m2 11/30 NA <60 = Renal Insufficiency , <15 = Renal Failure. This equation is not applicable to person's under 18 years of age.eGFR calculation based on the IDSC traceable four-paramete r MDRD equation. [facility] CMP GFR - >60 mL/min/1.73 m2 11/30 NA [facility] CMP Sex assigned at Male 11/30 NA [facility] PT PT - Patient 25.6 sec 11.8 - 13.8 11/30 H [facility] PT PT - INR 2.48 11/30 INDICATION [...] 2.5 - 3.5 of recurrent myocardial infarction [facility] PT Sex assigned at Male 11/30 NA [facility] SReview Anisocytosis 1+ None 11/30 * [facility] SReview RBC Morphology Abnormal Normal 11/30 * [facility] SReview Sex assigned at Male 11/30 NA [facility] AutoDiff * Auto Neutrophil Percent 73.6 % 40.0 - 80.0 11/29 NA [facility] AutoDiff * Auto Neutrophil Absolute 8.8 K/uL 11/29 NA [facility] AutoDiff * Auto Lymphocyte Percent 5.5 % 18.0 - 45.0 11/29 L [facility] AutoDiff * Auto Lymphocyte Absolute 0.7 K/uL 11/29 NA [facility] AutoDiff * Auto Monocyte Percent 20.9 % 3.0 - 12.0 11/29 H [facility] AutoDiff * Auto Monocyte Absolute 2.5 K/uL 11/29 NA [facility] AutoDiff * Auto Eosinophil Percent 0.0 % - <=7.0 11/29 NA [facility] AutoDiff * Auto Eosinophil Absolute 0.0 K/uL 11/29 NA [facility] AutoDiff * Auto Basophil Percent 0.0 % - <=2.0 11/29 NA [facility] AutoDiff * Auto Basophil Absolute 0.0 K/uL 11/29 NA [facility] AutoDiff * Sex assigned at Male 11/29 NA [facility] CBC WBC 12.0 K/uL 3.5 - 10.4 11/29 H [facility] CBC RBC 4.69 M/uL 4.00 - 6.20 11/29 NA [facility] CBC HGB 13.8 gm/dL 14.0 - 18.0 11/29 L [facility] CBC HCT 42.2 % 42.0 - 52.0 11/29 NA [facility] CBC MCV 89.9 fL 82.0 - 101.0 11/29 NA [facility] CBC MCH 29.3 pg 26.0 - 34.0 11/29 NA [facility] CBC MCHC 32.6 gm/dL 32.0 - 36.0 11/29 NA [facility] CBC RDW 15.1 % 11.0 - 15.0 11/29 H [facility] CBC PLT 121 K/uL 140 - 440 11/29 L [facility] CBC MPV 8.5 fL 7.4 - 11.4 11/29 NA [facility] CBC Manual Diff Y/N SReview 11/29 NA [facility] CBC Sex assigned at Male 11/29 NA [facility] CMP Sodium Level 140 mmol/L 136 - 145 11/29 NA [facility] CMP Potassium Level 4.1 mmol/L 3.5 - 5.1 11/29 NA [facility] CMP Chloride Level 102 mmol/L 98 - 107 11/29 NA [facility] CMP CO2/Carbon Dioxide 30.5 mmol/L 21.0 - 32.0 11/29 NA [facility] CMP Anion Gap 8 mmol/L 4 - 16 11/29 NA [facility] CMP Glucose, Random 115 mg/dL 70 - 95 11/29 H Reference ranges are based on a fasting specimen. [facility] CMP BUN 27 mg/dL 7 - 20 11/29 H [facility] CMP Creatinine 0.7 mg/dL 0.9 - 1.3 11/29 L [facility] CMP BUN/Creat Ratio 38.6 11/29 NA [facility] CMP Osmolality, Calculated 296 11/29 NA [facility] CMP Calcium Level 9.0 mg/dL 8.6 - 10.0 11/29 NA [facility] CMP Total Protein 6.6 gm/dL 6.4 - 8.2 11/29 NA [facility] CMP Albumin Level 3.8 gm/dL 3.5 - 5.0 11/29 NA [facility] CMP Globulin Level 2.8 gm/dL 2.0 - 4.0 11/29 NA [facility] CMP A/G Ratio 1.4 1.1 - 2.2 11/29 NA [facility] CMP ALP 59 units/L 38 - 126 11/29 NA [facility] CMP ALT 21 units/L 10 - 40 11/29 NA [facility] CMP AST 18 units/L 15 - 41 11/29 NA [facility] CMP Bilirubin, Total 0.5 mg/dL - <=1.0 11/29 NA [facility] CMP GFR - Non >60 mL/min/1.73 m2 11/29 NA <60 = Renal Insufficiency , <15 = Renal Failure. This equation is not applicable to person's under 18 years of age.eGFR calculation based on the IDSC traceable four-paramete r MDRD equation. [facility] CMP GFR - >60 mL/min/1.73 m2 11/29 NA [facility] CMP Sex assigned at Male 11/29 NA [facility] PT PT - Patient 26.6 sec 11.8 - 13.8 11/29 H [facility] PT PT - INR 2.61 11/29 INDICATION [...] of recurrent myocardial infarction [facility] Sex assigned at Male 11/29 NA [facility] SReview Anisocytosis 1+ None 11/29 * [facility] SReview RBC Morphology Abnormal Normal 11/29 * [facility] SReview Sex assigned at Male 11/29 NA [facility] POC CG4+ Harshal VBG - pH 7.390 7.310 - 7.410 11/28 NA Device Code: LAB iSTATFacility : 0045Location: EDSerial Number: [id number] r Code: superkOperato r Name: Aditi Cornelius able Lot: [id number] [facility] POC CG4+ Harsahl VBG - pCO2 46.6 mmHg 41.0 - 51.0 11/28 NA [facility] POC CG4+ Harshal VBG - pO2 45 mmHg 30 - 40 11/28 H [facility] POC CG4+ Harshal VBG - HCO3 28.2 mmol/L 23.0 - 28.0 11/28 H [facility] POC CG4+ Harshal VBG - TCO2 30 mmol/L 24 - 29 11/28 H [facility] POC CG4+ Harshal VBG - O2 Sat 80.0 % 0.0 - 75.0 11/28 H [facility] POC CG4+ Harshal VBG - BE 2 mmol/L -3 - 3 11/28 NA [facility] POC CG4+ Harshal POCT - Lactate/Lacti c Acid 0.90 mmol/L 0.50 - 1.90 11/28 NA [facility] POC CG4+ Harshal BG - Modified Bayron Test NA 11/28 NA [facility] POC CG4+ Harshal BG - Site OTHER 11/28 NA [facility] POC CG4+ Harshal Sex assigned at Male 11/28 NA [facility] BMP Sodium Level 136 mmol/L 136 - 145 11/28 NA [facility] BMP Potassium Level 3.7 mmol/L 3.5 - 5.1 11/28 NA [facility] BMP Chloride Level 100 mmol/L 98 - 107 11/28 NA [facility] BMP CO2/Carbon Dioxide 26.10 mmol/L 21.00 - 32.00 11/28 NA [facility] BMP Anion Gap 10 mmol/L 4 - 16 11/28 NA [facility] BMP Glucose, Random 105 mg/dL 70 - 95 11/28 H Reference ranges are based on a fasting specimen. [facility] BMP BUN 26 mg/dL 7 - 20 11/28 H [facility] BMP Creatinine 0.8 mg/dL 0.9 - 1.3 11/28 L [facility] BMP BUN/Creat Ratio 32.5 11/28 NA [facility] BMP Osmolality, Calculated 287 11/28 NA [facility] BMP Calcium Level 8.6 mg/dL 8.6 - 10.0 11/28 NA [facility] BMP GFR - Non >60 mL/min/1.73 m2 11/28 NA <60 = Renal Insufficiency , <15 = Renal Failure. This equation is not applicable to person's under 18 years of age.eGFR calculation based on the IDSC traceable four-paramete r MDRD equation. [facility] BMP GFR - >60 mL/min/1.73 m2 11/28 NA [facility] BMP Sex assigned at Male 11/28 NA [facility] BNPep BNP B-Natriuretic Peptide 58 pg/mL - <=100 11/28 NA [facility] BNPep Sex assigned at Male 11/28 NA [facility] CBC WBC 8.9 K/uL 3.5 - 10.4 11/28 NA [facility] CBC RBC 4.60 M/uL 4.00 - 6.20 11/28 NA [facility] CBC HGB 13.7 gm/dL 14.0 - 18.0 11/28 L [facility] CBC HCT 40.7 % 42.0 - 52.0 11/28 L [facility] CBC MCV 88.5 fL 82.0 - 101.0 11/28 NA [facility] CBC MCH 29.7 pg 26.0 - 34.0 11/28 NA [facility] CBC MCHC 33.5 gm/dL 32.0 - 36.0 11/28 NA [facility] CBC RDW 15.3 % 11.0 - 15.0 11/28 H [facility] CBC PLT 109 K/uL 140 - 440 11/28 L [facility] CBC MPV 7.9 fL 7.4 - 11.4 11/28 NA [facility] CBC Manual Diff Y/N Man Diff 11/28 NA [facility] CBC Sex assigned at Male 11/28 NA [facility] CK+MBIF CK, Total 164 units/L 32 - 230 11/28 NA [facility] CK+MBIF Sex assigned at Male 11/28 [facility] [id number] LU SARS-CoV-2 Source Nasopharyng eal 11/28 NA [facility] [id number] LU Influenza A Agn Molecular Detected Not [...] Test results? Y/N YAssay performed by RT-PCR [facility] [id number] LU Influenza B Agn Molecular Not Detected Not Detected 11/28 NA Assay performed by RT-PCR [facility] [id number] LU SARS-CoV-2 Molecular Not Detected Not Detected 11/28 NA Assay performed by RT-PCRThis test was performed under U.S. Food and Drug Administratio n (FDA) Emergency use Authorization (EUA). This test has been validated but the FDAs independent review of this validation is pending. [facility] [id number] LU SARS-CoV-2 First test? No 11/28 NA [facility] [id number] IGOR Health Care Worker? No 11/28 NA [facility] [id number] IGOR SARS-CoV-2 Is the Patient Hospitalized? No 11/28 NA [facility] [id number] IGOR SARS-CoV-2 Is the Patient in ICU? No 11/28 NA [facility] [id number] IGOR Patient From [place]? Yes 11/28 NA [facility] [id number] IGOR Symptomatic per CDC? Yes 11/28 NA [facility] [id number] IGOR SARS-CoV-2 Is the Patient ? No 11/28 NA [facility] [id number] IGOR Sex assigned at Male 11/28 NA [facility] MDiff Bands % 1 % - <=6 11/28 NA [facility] MDiff Manual Neutrophil Percent 64 % 40 - 80 11/28 NA [facility] MDiff Manual Neutrophil Absolute 5.8 K/uL 11/28 NA [facility] MDiff Manual Lymphocyte Percent 6 % 18 - 45 11/28 L [facility] MDiff Manual Lymphocyte Absolute 0.5 K/uL 11/28 NA [facility] MDiff Manual Monocyte Percent 27 % 3 - 12 11/28 H [facility] MDiff Manual Monocyte Absolute 2.4 K/uL 11/28 NA [facility] MDiff Manual Eosinophil Percent 2 % - <=7 11/28 NA [facility] MDiff Manual Eosinophil Absolute 0.2 K/uL 11/28 NA [facility] MDiff RBC Morphology Abnormal Normal 11/28 * [facility] MDiff Anisocytosis 1+ None 11/28 * [facility] MDiff Polychromasia 1+ None 11/28 * [facility] MDiff Sex assigned at Male 11/28 NA [facility] Mg Magnesium Level 1.9 mg/dL 1.6 - 2.5 11/28 NA [facility] Mg Sex assigned at Male 11/28 NA [facility] PT - Patient 32.7 sec 11.8 - 13.8 11/28 H [facility] PT - INR 3.41 11/28 NA [...] 2.5 - 3.5 of recurrent myocardial infarction [facility] Sex assigned at Male 11/28 NA [facility] PTT PTT - Patient 42 sec 21 - 34 11/28 [facility] [place] PTT Sex assigned at Male 11/28 [facility] [place] TROPHS Troponin I High Sensitivity 7 ng/L [...] testing may be helpful for interpretatio n. [facility] TROPHS Sex assigned at Male 11/28 NA [facility] C Blood C Blood Final:No growth at 5 days.Sex assigned at :Male 11/28 [facility] C Blood C Blood Final:No growth at 5 days.Sex assigned at :Male 11/28 [facility] Diagnostic Reports Report Value Date Source Chest [...] Jo MD on 12/01/2021 06:58 HST 12/01/2021 [facility] 1 Vw Portable PROCEDURE: Chest 1 [...] Collin Simpson on 11/30/2021 10:36 HST 11/30/2021 [place] [address] Vw Portable PROCEDURE: CHEST RAD IOGRAPH, 1 [...] Dubon MD on 11/29/2021 10:40 HST 11/29/2021 [facility] 1 Vw Portable PROCEDURE: CHEST RAD [...] Brown MD on 11/28/2021 05:06 HST 11/28/2021 [facility] Consultation Notes Results Value Date Source Portable [...] on 12/01/2021 06:58 HST Final 12/01/2021 45 [facility] Pulmonology Progress Note Patient: LEANNE JARAMILLO Age: 76 years Legal Sex: MALE : 1945 Subjective 1. Doing better overall 2. Now comfortable on room air 3. No longer have any wheezing 4. Afebrile; no leukocytosis 5. all medications reviewed Objective NOTE: This note was generated with the assistance of a voice dictation system, using the Inspirato Edition. Sane Rn errors may very well be present and [...] Normal strength, No tenderness Integumentary: Warm, Dry, [place], No skin lesions Neurologic: Alert, Oriented, Normal [...] mg/3 mL Neb Soln 3 mL, INH, F6OzzuFHws Dextrose 50% Inj 50 mL Syr 25 [...] Encourage ambulation Continue DuoNeb every 6 hours ngjyot-hfw-psxoh with addition to AccuPAP Continue with Breo [...] of unspecified lower extremity, I82.409) 5. Anticoagulated (alf (current) use of anticoagulants, Z79.01) 6. Morbid [...] Chest Physiotherapy Incentive [facility]pirometry [facility] O[facility] Continuous Pulse Oximetry Respiratory Therapy Communication Order Updraft Nebulizer Treatment [id number] Male 12/01/2021 [facility] Pulmonology Consultation Patient: LEANNE JARAMILLO Age: 76 [...] shortness of breath. Patient is visiting from [place]. He states symptoms began 2 days ago [...] or vomiting. He apparently is visiting from [place], gotten his influenza vaccine and COVID booster [...] Normal strength, No tenderness Integumentary: Warm, Dry, [place], No skin lesions Neurologic: Alert, Oriented, Normal [...] Encourage ambulation Add DuoNeb every 6 hours lzvuve-wfh-jehha with addition to AccuPAP Continue with Breo [...] of unspecified lower extremity, I82.409) 5. Anticoagulated (long term care social worker (current) use of anticoagulants, Z79.01) 6. [...] Cap, ORAL, DAILY DuoNeb, 3 mL, INH, S4VfbrZKhm, PRN flecainide, 50 mg, 0.5 Tab, ORAL, [...] Never. Are you ready to quit? N/A. [id number] Male 11/30/2021 [facility] Progress Note Patient: AMY JARAMILLO Age: 76 years Legal Sex: MALE : 1945 Chart is generated by Cotton Converter, Ivon Valdes, for Dr. Rincon Date of [...] mg/3 mL Neb Soln 3 mL, INH, H5ZlroFNhl Dextrose 50% Inj 50 mL Syr 25 [...] of unspecified lower extremity, I82.409) 5. Anticoagulated (alf (current) use of anticoagulants, Z79.01) 6. Morbid obesity (Morbid (severe) obesity due to excess calories, E66.01) 7. Paroxysmal atrial fibrillation (Paroxysmal atrial fibrillation, I48.0) SOB (shortness of breath) (SOB (shortness of breath), 22107) Plan: Cont breathing treatments Cont steroids started [...] and medical decision making performed by me. 35059-3 Male 11/30/2021 [facility] Progress Note Patient: AMY JARAMILLO Age: 76 [...] mg/3 mL Neb Soln 3 mL, INH, V4DdziOAli albuterol-ipratrop 3-0.5 mg/3 mL Neb Soln 3 [...] of unspecified lower extremity, I82.409) 5. Anticoagulated (long term care social worker (current) use of anticoagulants, Z79.01) 6. Morbid obesity (Morbid (severe) obesity due to excess calories, E66.01) 7. Paroxysmal atrial fibrillation (Paroxysmal atrial fibrillation, I48.0) SOB (shortness of breath) (SOB (shortness of breath), 74034) Plan: Chest x-ray Start Azithromycin Cont breathing treatments Cont steroids Supplemental O2 as needed - goal sat 88-92 Advance care planning including the explanation and discussion of advance directives such as standard forms (with completion of such forms, when performed) by the physician or other qualified health professional; first 30 minutes, cxwi-wp-xyvw with the patient, family member(s) and/or surrogate. Quality Measures Charting performed by Cotton Converter, Ivon Valdes, for Dr. Rincon The scribe's documentation has been prepared under my direction and personally reviewed by me in its entirety. I confirm that the note above accurately reflects all work, treatment, and medical decision making performed by me. 19235-7 Male 11/29/2021 [facility] ED Physician Notes Patient: LEANNE JARAMILLO Age: 76 years Legal Sex: Male : 1945 Author: MD Randy, Shahbaz Trujillo Associated Diagnosis: Acute respiratory failure with hypoxia; COPD exacerbation; Influenza A Basic Information MSEI /GRADUATE ASSISTANT/PA Time Patient Seen face to face: Date [...] shortness of breath. Patient is visiting from [place]. He states symptoms began 2 days ago [...] HST, N/A DuoNeb: = 3 mL, INH, J2C-Qrxufxqh, PRN, Wheezing, STAT, NEB AMP, 11/28/21 3:03:00 [...] History. 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 Surgical history: Triage Surgical History. [...] method Bed scale Height/Length (cm) 175.6 cm [place] Body Weight Calculated 71.008 . Oxygen saturation: [...] B Agn Molecular Not Detected Patient From [facility]? Yes SARS-CoV-2 Molecular Not Detected SARS-CoV-2 [...] treatment plan, Patient indicated understanding of instructions. 17996-1 Male 11/28/2021 [facility] Discharge Summaries Results Value Date Source Discharge [...] of unspecified lower extremity, I82.409) 5. Anticoagulated (long term care social worker (current) use of anticoagulants, Z79.01) 6. [...] weeks prior to departing on vacation from [place] that he received his influenza vaccine with [...] other qualified health professional; first 30 minutes, foyj-zp-pphu with the patient, family member(s) and/or surrogate [...] f/u with PCP 1 week Cardiac diet 54612-9 Male 12/01/2021 [facility] History and Physicals Results Value Date Source Admission H & P 11/28/2021 [facility] History and Physical Patient: LIBAN JARAMILLO Age: [...] weeks prior to departing on vacation from [place] that he received his influenza vaccine with [...] other qualified health professional; first 30 minutes, htgq-xx-cxzj with the patient, family member(s) and/or surrogate [...] (shortness of breath) (SOB (shortness of breath), 73574) Orders: acetaminophen (acetaminophen), 650 mg, ORAL, Q6H, PRN, Pain-Mild (Scale 1-3), TAB, 11/28/21 5:00:00 HST acetaminophen (acetaminophen), 650 mg, ORAL, Q6H, PRN, Fever, TAB, 11/28/21 5:00:00 HST albuterol-ipratropium (DuoNeb), = 3 mL, INH, T0IukpIEzl, PRN, Shortness of breath, NEB AMP, 11/28/21 [...] mg, ORAL, DAILY DuoNeb, 3 mL, INH, G0CnjmOZyu, PRN flecainide, 50 mg, 1 Tab, ORAL, [...] smoker, quit more than 30 days ago. 32405-5 Male 11/28/2021 [facility] Vital Signs Vital Sign Value Date Comments Source Peripheral Pulse Rate 94 bpm 12/02/2021 45 [facility] Pulse Oximetry 90 % 12/02/2021 45 [facility] Respiratory rate 18 br/min 12/02/2021 45 [facility] Systolic BP 116 mm[Hg] 12/02/2021 45 [facility] Diastolic BP 69 mm[Hg] 12/02/2021 45 [facility] Mean BP 85 mm[Hg] 12/02/2021 45 [facility] Temperature (F) 97.8 [degF] 12/02/2021 45 [facility] Peripheral Pulse Rate 81 bpm 12/01/2021 45 [facility] Pulse Oximetry 92 % 12/01/[address] [facility] Respiratory rate 18 br/min 12/01/2021 45 [facility] Systolic BP 130 mm[Hg] 12/01/2021 45 [facility] Diastolic BP 83 mm[Hg] 12/01/2021 45 [facility] Mean BP 98 mm[Hg] 12/01/2021 45 [facility] Temperature (F) 97.9 [degF] 12/01/2021 45 [facility] Oxygen FiO2 21 % 12/01/2021 45 [facility] Respiratory rate 16 br/min 12/01/2021 45 [facility] Peripheral Pulse Rate 87 bpm 12/01/2021 45 [facility] Pulse Oximetry 93 % 12/01/[address] [facility] Oxygen FiO2 21 % 12/01/2021 45 [facility] Oxygen FiO2 21 % 12/01/2021 45 [facility] Temperature (F) 97.9 [degF] 12/01/2021 45 [facility] Systolic BP 124 mm[Hg] 12/01/2021 45 [facility] Diastolic BP 78 mm[Hg] 12/01/2021 45 [facility] Mean BP 93 mm[Hg] 12/01/2021 45 [facility] Weight (kg) 116.9 kg 12/01/2021 45 [facility] Oxygen flow 1 L/min 12/01/2021 45 [facility] Oxygen flow 1 L/min 11/30/2021 45 [facility] Oxygen flow 1 L/min 11/30/2021 45 [facility] Weight (kg) 116.3 kg 11/30/2021 45 [facility] Weight (kg) 118.3 kg 11/29/2021 45 [facility] HeightLength (cm) 175.6 cm 11/28/2021 [facility] Body Mass Index 38.2 kg/m2 11/28/2021 45 [facility] Dose calculation weight (kg) 117.8 kg 11/28/2021 45 [facility] Heart Rate Monitored 94 bpm 11/28/2021 45 [facility] Heart Rate Monitored 93 bpm 11/28/2021 45 [facility] Heart Rate Monitored 88 bpm 11/28/2021 45 [facility] Apical Heart Rate 94 bpm 11/28/2021 45 [facility] Dose calculation weight (kg) 117.8 kg 11/28/2021 45 [facility] HeightLength (cm) 175.6 cm 11/28/2021 45 [facility] Body Mass Index 38.2 kg/m2 11/28/2021 45 [facility] [place] Body Weight Calculated 71.008 11/28/2021 45 [facility] Encounters Location Location Details Encounter Type Encounter Number Reason For Visit Attending Provider ADM Date DC Date Status Source 45 45 [facility] Inpatient [id number] CHRONIC OBSTRUCTI VE PULMONARY DISEASE (J44.1), INFLUENZA A (J10.1) Elias Kay 11/28 Active [facility] Procedures Procedure Code Date Perfomer Comments Source ROUTINE VENIPUNCTURE 34625 12/01/2021 45 [facility] ROUTINE VENIPUNCTURE 69315 11/30/2021 45 [facility] ROUTINE VENIPUNCTURE 58956 11/29/2021 45 [facility] ROUTINE VENIPUNCTURE 41899 11/28/2021 45 [facility] ROUTINE VENIPUNCTURE 68173 11/28/2021 45 [facility] Plan of Care Plan of Care Date Source Extracted from:Title: Hospit [facility]ist Discharge Note Author: MD Kay Tom-Oliver Date: 12/01/21 History of Present Illness 76-year-old male with a medical history notable for DVT, 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 Patient reports 2 weeks prior to?departing on vacation?from [place]?that he received his influenza vaccine with COVID [...] other qualified health professional; first 30 minutes, xouk-pi-krqs with the patient, family member(s) and/or surrogate FULL CODE ? Discharge Date: ?_ ? Discharge Location: ?_ ? Addendum by MD Rahul, [facility] on December 01 2021 12:57:56 HST Discharge [...] plan, Patient indicated understanding of instructions. 12/02/[address] [place] [address] Social History Social History Date Source Social History TypeResponse Smoking Status Is there a smoker in the household? No; *Do you have concerns about tobacco use in household? No; Never (less than 100 in lifetime); Never; *Are you ready to quit? N/A entered on: 11/28/21 Sex Male [address] [place] [address] Social History TypeResponse Smoking Status Is there a smoker in the household? No; *Do you have concerns about tobacco use in household? No; Never (less than 100 in lifetime); Never; *Are you ready to quit? N/A entered on: 11/28/21 Sex Male [address] [place] [address] Social History TypeResponse Smoking Status Is there a smoker in the household? No; *Do you have concerns about tobacco use in household? No; Never (less than 100 in lifetime); Never; *Are you ready to quit? N/A entered on: 11/28/21 Sex Male [address] [place] [address]
--- OUTSIDE RECORDS SUMMARY | 2024-01-23 02:22 | XMS_ITS | Data Portability ---
Author Organization [place] [facility] Address [address] [place] [id number] Assessment Encounter Date Assessment Date Assessment LastModified [...] abnormal oxygen saturation, and increased breathing effort [facility] was contacted. Supplemental oxygen was administered until EMS arrived. Verbal and written report given to [facility]. Time On Scene with Patient: 01:05:55 - Emergent 911 transport: Patient is critically ill and required immediate transport by a 911/emergency vehicle due to critical illness requiring immediate intervention [id number] Not available 02/12/2022 09:40:35 Plan of Treatment Reminders Order Date Submit Date Provider Last Modified By Organization Details Last Modified Time Details Appointments None recorded. Lab rapid SARS CoV 2 Ag, QL IA, respiratory specimen 2021 022 stephen [id number] [facility], [address] [place] [address], [phone], 16:28:01 Referral None recorded. Procedures None recorded. Surgeries None recorded. Imaging None recorded. Medication Orders None recorded. Patient TargetsNo targets recorded. Patient Instructions Encounter Date Encounter Id Patient Instructions Last Modified By Organization Details Last Modified Time 02/06/2022 [id number] shortness of breath: care instructions [id number] Not available 02/06/2022 16:01:31 [facility] yo [facility]. We cannot always find the exact cause of your symptoms during your initial visit. Please follow up with your primary care provider or specialist within 12-24 hours within 24-48 hours within 2-3 days to be rechecked or seek medical attention if your symptoms do not go away or get worse. If you develop any new or worsening symptoms and need after hours care, please go to nearest ER and/or call 911. If you have additional concerns or develop a change in your condition between 8am-10pm, please call [facility] at [phone] to help navigate your care. 3 Not available 02/07/2022 20:23:27 Reason for Referral None Reported. Results Created Date Observation Date Name Description Value Unit Range Abnormal Flag Note LastModifiedBy Organization Detail LastModifiedTime 02/07/20 22 02/06/2022 rapid SARS CoV 2 Ag, QL IA, respi rator y speci men Covid-19 (ref: neg) negati ve Not Available [facility] [address] [place], [address], 02/06/2022 16:02:13 02/07/20 22 02/06/2022 rapid SARS CoV 2 Ag, QL IA, respi rator y speci men Control Visual ized/V alid Not Available [facility] [address] [place], [address], 02/06/2022 16:02:13 02/07/20 22 02/06/2022 rapid SARS CoV 2 Ag, QL IA, respi rator y speci men Location [facility], [facility] Vivian keenan [facility], [address] [place] [address], [id number] [phone] Not Available [facility] [address] [place], [address], 02/06/2022 16:02:13 Result Notes None recorded. Medical Equipment None Reported. Allergies Allergen ID Allergen Name Allergen Category Reaction Reaction Severity Criticality Documentation Date Start Date Code Code System Note Provider Name and Address Organization Details Recorded Time [id number] Augmentin medicatio n Not available Not available Not available 02/06/2022 97564 2 RxNorm August JOSE Gu [address] [place], [address], [place] [facility] 15:54:26 Medications Name Sig Start Date Stop [...] Available Not Available Not Available amoxicillin 875 mg-potceasaru m clavulanate 125 mg tablet TAKE 1 [...] % 77 /min 142 mm[Hg] 78 mm[Hg] Adrienne JOSE Gu [address] [place], [address], [place] [facility] 20:29:19 Social History None recorded. Functional Status None recorded. Mental Status None recorded. Family History Nothing Reported. Medical History Condition Response Diabetes N Coronary Artery Disease Y CHF Y Parkinson's Disease N Cancer N Stroke N Dementia N Hypothyroidism N Asthma N COPD Y Depression N High Cholesterol Y Rheumatoid Arthritis N Pulmonary Embolism N Hypertension Y Osteoporosis N A-fib N Kidney Disease N Past Encounters Encounter ID Performer Location Encounter Start Date Encounter Closed Date Diagnosis/Indication Diagnosis SNOMED-CT Code Diagnosis ICD10 Code [id number] August JOSE Gu [facility] [address] [place] [address] 02/06/2022 15:51:42 02/13/2022 11:31:27 Dyspnea at rest 569511955 R06.00 Acute hypo xemic respiratory failure 856319507 J96.01 Health Concerns Section Related Observation LastModified by Organization Detai ls LastModified Time None Recorded Concern Status LastModified by Organization Details LastModified Time None Recorded Advance Directives Directive None Recorded Payers Encounter Date Sequence Insurance Name Policy Number Policy Contreras Covered Member ID Contreras Member ID Guarantor Name 02/06/2022 2 [place] [id number] Jay Gonzales [id number] Jay Gonzales 02/06/2022 1 [facility] (MEDICARE REPLACEMENT/A DVANTAGE - PPO) [id number] Jay Gonzales [id number] Jay Gonzales Notes Date Note Type Note [...] November. Adrienne Gu NP [address], [place], [address], [place] [facility] 02/12/2022 09:40:47
== END 2024-01-22 13:39 | disposition home or self-care (01) ==
PROVIDERS: PCP Internal Medicine; Visit Provider Internal Medicine
DX: J44.1 Chronic obstructive pulmonary disease with (acute) exacerbation (principal); J98.4 Other disorders of lung; R06.89 Other abnormalities of breathing
CPT/HCPCS: 99213

== ENCOUNTER → 2024-01-22 13:02 | Outpatient (BNVA) | payer MEDICARE, SELFPAY | PROVIDERS: PCP Internal Medicine; Visit Provider Internal Medicine | DX: J44.1 Chronic obstructive pulmonary disease with (acute) exacerbation (principal); J98.4 Other disorders of lung; R06.89 Other abnormalities of breathing; G47.33 Obstructive sleep apnea (adult) (pediatric); Z99.89 Dependence on other enabling machines and devices | CPT/HCPCS: 99212 ==

== ENCOUNTER 2024-01-27 13:15 | Outpatient (AMB) | payer MEDICARE, SELFPAY ==
--- OUTSIDE RECORDS SUMMARY | 2024-01-27 13:17 | XMS_ITS | Continuity of Care Document ---
Author Name [facility] Organization [facility] Care Team Providers Care Tourist Home Keeper Name Role Phone [facility] Unavailable Unavailable Problems Problem Status Onset Date Classification Date Reported Comments Source Acute embolism and thrombosis of unspeci Active 11/28/2021 [facility] Acute respiratory failure with hypoxia Active 11/28/2021 12/02/2021 45 [facility] COPD exacerbation Active 11/28/2021 12/02/2021 45 [facility] Influenza A Active 11/28/2021 12/02/2021 45 [facility] Paroxysmal atrial fibrillation Active 11/28/2021 12/02/2021 45 [facility] Anticoagulated Active 11/28/2021 12/02/2021 45 [facility] Morbid obesity Active 11/28/2021 12/02/2021 45 [facility] Shortness of breath Active [facility] Medications Medication Details Route Status Patient Instructions Ordering Provider Order Date Source guaiFENesin 600 mg oral tablet, extended release = 1 Tab, ORAL, BID, X 5 Day(s), # 10 Tab, 0 Refill(s), Acute, Pharmacy: [facility], 175.6, cm, 11/28/21 6:49:00 HST, Height/Length (cm), 117.8, kg, 11/28/21 6:49:00 HST, Dose calculation weight (kg) Active 022 45 [facility] Albuterol (Eqv-Proventil HFA) 90 mcg/inh inhalation aerosol 2 Puff, INH, Q6H, # 8.5 gm, 0 Refill(s), Maintenance, Pharmacy: [facility], 175.6, cm, 11/28/21 6:49:00 HST, Height/Length (cm), 117.8, kg, 11/28/21 6:49:00 HST, Dose calculation weight (kg) Active [facility] Tamiflu 75 mg oral capsule = 1 Cap, ORAL, BID, X 2 Day(s), # 4 Cap, 0 Refill(s), [facility], cm, 11/28/21 6:49:00 HST, Height/Length (cm), 117.8, kg, 11/28/21 6:49:00 HST, Dose calculation weight (kg) Active [facility] predniSONE 50 mg oral tablet = 1 Tab, ORAL, DAILY, X 5 Day(s), # 5 Tab, 0 Refill(s), Acute, Pharmacy: [facility], 175.6, cm, 11/28/21 6:49:00 HST, Height/Length (cm), 117.8, kg, 11/28/21 6:49:00 HST, Dose calculation weight (kg) Active [facility] multivitamin oral 1 Tab, ORAL, DAILY, OTC, Maintenance Active [facility] Sen[place] = 1 Tab, ORAL, DAILY, OTC, Maintenance Active [facility] warfarin 5 mg oral tablet = 1.5 Tab, ORAL, QTThSa, Maintenance Active [facility] PREPACK Albuterol (0.83 mg/mL) 2.5mg/3mL #6 3 mL, INH, Q4H, PRN Shortness of breath/wheezin g, Maintenance Active [facility] Wixela Inhub 500 mcg-50 mcg inhalation powder 1 Inhalation, INH, BID, Maintenance Active [facility] warfarin 5 mg oral tablet = 1 Tab, ORAL, QSuMWF, 0 Refill(s), Maintenance Active [facility] DilTIAZem (Eqv-Cardizem CD) 120 mg/24 hours oral capsule, extended release = 1 Cap, ORAL, DAILY, 0 Refill(s), Maintenance Active [facility] Klor-Con 10 mEq oral tablet, extended release = 1 Tab, ORAL, DAILY, 0 Refill(s), Maintenance Active 45 [facility] flecainide 50 mg oral tablet = 1 Tab, ORAL, Q12H, 0 Refill(s), Maintenance Active 45 [facility] furosemide 40 mg oral tablet = 1 Tab, ORAL, BID, 0 Refill(s), Maintenance Active 45 [facility] atorvastatin 20 mg oral tablet = 1 Tab, ORAL, DAILY, 0 Refill(s), Maintenance Active 45 [facility] Allergies, Adverse Reactions, Alerts Substance Category Reaction Severity Reaction type Status Date Reported Comments Source Augmentin Assertion vomiting, dizziness Drug allergy Active 45 [facility] Results Order Name Results Value Reference Range Date Interpretation Comments Source AutoDiff * Auto Neutrophil Percent 67.8 % 40.0 - 80.0 12/01 [facility] AutoDiff * Auto Neutrophil Absolute 6.1 K/uL 12/01 [facility] AutoDiff * Auto Lymphocyte Percent 13.0 % 18.0 - 45.0 12/01 L [facility] AutoDiff * Auto Lymphocyte Absolute 1.2 K/uL 12/01 [facility] AutoDiff * Auto Monocyte Percent 19.0 % 3.0 - 12.0 12/01 H [facility] AutoDiff * Auto Monocyte Absolute 1.7 K/uL 12/01 [facility] AutoDiff * Auto Eosinophil Percent 0.1 % - <=7.0 12/01 [facility] AutoDiff * Auto Eosinophil Absolute 0.0 K/uL 12/01 [facility] AutoDiff * Auto Basophil Percent 0.1 % - <=2.0 12/01 [facility] AutoDiff * Auto Basophil Absolute 0.0 K/uL 12/01 [facility] AutoDiff * Sex assigned at Male 12/01 [facility] CBC WBC 9.0 K/uL 3.5 - 10.4 10/21 /2022 NA [facility] CBC RBC 4.83 M/uL 4.00 - 6.20 12/01 NA [facility] CBC HGB 14.2 gm/dL 14.0 - 18.0 12/01 NA [facility] CBC HCT 42.7 % 42.0 - 52.0 12/01 NA [facility] CBC MCV 88.4 fL 82.0 - 101.0 12/01 NA [facility] CBC MCH 29.4 pg 26.0 - 34.0 12/01 NA [facility] CBC MCHC 33.2 gm/dL 32.0 - 36.0 12/01 NA [facility] CBC RDW 15.2 % 11.0 - 15.0 12/01 H [facility] CBC PLT 127 K/uL 140 - 440 12/01 L [facility] CBC MPV 8.5 fL 7.4 - 11.4 12/01 NA [facility] CBC Sex assigned at Male 12/01 NA [facility] CBC Manual Diff Y/N SReview 12/01 NA [facility] CMP Sodium Level 143 mmol/L 136 - 145 12/01 NA [facility] CMP Potassium Level 3.8 mmol/L 3.5 - 5.1 12/01 NA [facility] CMP Chloride Level 101 mmol/L 98 - 107 12/01 NA [facility] CMP CO2/Carbon Dioxide 34.6 mmol/L 21.0 - 32.0 12/01 H [facility] CMP Anion Gap 7 mmol/L 4 - 16 12/01 NA [facility] CMP Glucose, Random 90 mg/dL 70 - 95 12/01 NA Reference ranges are based on a fasting specimen. [facility] CMP BUN 33 mg/dL 7 - 20 12/01 H [facility] CMP Creatinine 0.8 mg/dL 0.9 - 1.3 12/01 L [facility] CMP BUN/Creat Ratio 41.2 12/01 [facility] CMP Osmolality, Calculated 303 12/01 [facility] C[facility] Calcium Level 9.0 mg/dL 8.6 - 10.0 12/01 [facility] C[facility] Total Protein 6.4 gm/dL 6.4 - 8.2 12/01 [facility] CMP Albumin Level 3.7 gm/dL 3.5 - 5.0 12/01 [facility] CMP Globulin Level 2.7 gm/dL 2.0 - 4.0 12/01 [facility] CMP A/G Ratio 1.4 1.1 - 2.2 12/01 [facility] CMP ALP 61 units/L 38 - 126 12/01 [facility] CMP ALT 26 units/L 10 - 40 12/01 [facility] C[facility] AST 16 units/L 15 - 41 12/01 [facility] CMP Bilirubin, Total 0.6 mg/dL - <=1.0 12/01 [facility] C[facility] GFR - Non >60 mL/min/1.73 m2 12/01 NA <60 = Renal Insufficiency , <15 = Renal Failure. This equation is not applicable to person's under 18 years of age.eGFR calculation based on the IDNE traceable four-paramete r MDRD equation. [facility] CMP GFR - >60 mL/min/1.73 m2 12/01 [facility] Sex assigned at Male 12/01 [facility] PT PT - Patient 25.1 sec 11.8 - 13.8 12/01 H [facility] PT PT - INR 2.42 12/01 INDICATION [...] 2.5 - 3.5 of recurrent myocardial infarction [facility] PT Sex assigned at Male 12/01 NA [facility] SReview Anisocytosis 1+ None 12/01 * [facility] SReview RBC Morphology Abnormal Normal 12/01 * [facility] SReview Sex assigned at Male 12/01 NA [facility] AutoDiff * Auto Neutrophil Percent 71.4 % 40.0 - 80.0 11/30 NA [facility] AutoDiff * Auto Neutrophil Absolute 7.3 K/uL 11/30 NA [facility] AutoDiff * Auto Lymphocyte Percent 10.6 % 18.0 - 45.0 11/30 L [facility] AutoDiff * Auto Lymphocyte Absolute 1.1 K/uL 11/30 NA [facility] AutoDiff * Auto Monocyte Percent 17.8 % 3.0 - 12.0 11/30 H [facility] AutoDiff * Auto Monocyte Absolute 1.8 K/uL 11/30 NA [facility] AutoDiff * Auto Eosinophil Percent 0.1 % - <=7.0 11/30 NA [facility] AutoDiff * Auto Eosinophil Absolute 0.0 K/uL 11/30 NA [facility] AutoDiff * Auto Basophil Percent 0.1 % - <=2.0 11/30 NA [facility] AutoDiff * Auto Basophil Absolute 0.0 K/uL 11/30 NA [facility] AutoDiff * Sex assigned at Male 11/30 NA [facility] CBC WBC 10.2 K/uL 3.5 - 10.4 11/30 NA [facility] CBC RBC 4.66 M/uL 4.00 - 6.20 11/30 NA [facility] CBC HGB 13.9 gm/dL 14.0 - 18.0 11/30 L [facility] CBC HCT 41.3 % 42.0 - 52.0 11/30 L [facility] CBC MCV 88.7 fL 82.0 - 101.0 11/30 NA [facility] CBC MCH 29.8 pg 26.0 - 34.0 11/30 NA [facility] CBC MCHC 33.5 gm/dL 32.0 - 36.0 11/30 NA [facility] CBC RDW 15.3 % 11.0 - 15.0 11/30 H [facility] CBC PLT 121 K/uL 140 - 440 11/30 L [facility] CBC MPV 7.9 fL 7.4 - 11.4 11/30 NA [facility] CBC Manual Diff Y/N SReview 11/30 NA [facility] CBC Sex assigned at Male 11/30 NA [facility] CMP Sodium Level 138 mmol/L 136 - 145 11/30 NA [facility] CMP Potassium Level 3.9 mmol/L 3.5 - 5.1 11/30 NA [facility] CMP Chloride Level 99 mmol/L 98 - 107 11/30 NA [facility] CMP CO2/Carbon Dioxide 33.80 mmol/L 21.00 - 32.00 11/30 H [facility] CMP Anion Gap 5 mmol/L 4 - 16 11/30 NA [facility] CMP Glucose, Random 97 mg/dL 70 - 95 11/30 H Reference ranges are based on a fasting specimen. [facility] CMP BUN 33 mg/dL 7 - 20 11/30 H [facility] CMP Creatinine 0.7 mg/dL 0.9 - 1.3 11/30 L [facility] CMP BUN/Creat Ratio 47.1 11/30 NA [facility] CMP Osmolality, Calculated 293 11/30 NA [facility] CMP Calcium Level 8.7 mg/dL 8.6 - 10.0 11/30 NA [facility] CMP Total Protein 6.3 gm/dL 6.4 - 8.2 11/30 L [facility] CMP Albumin Level 3.8 gm/dL 3.5 - 5.0 11/30 NA [facility] CMP Globulin Level 2.5 gm/dL 2.0 - 4.0 11/30 NA [facility] CMP A/G Ratio 1.5 1.1 - 2.2 11/30 NA [facility] CMP ALP 56 units/L 38 - 126 11/30 NA [facility] CMP ALT 21 units/L 10 - 40 11/30 NA [facility] CMP AST 17 units/L 15 - 41 11/30 NA [facility] CMP Bilirubin, Total 0.6 mg/dL - <=1.0 11/30 NA [facility] CMP GFR - Non >60 mL/min/1.73 m2 11/30 NA <60 = Renal Insufficiency , <15 = Renal Failure. This equation is not applicable to person's under 18 years of age.eGFR calculation based on the IDNE traceable four-paramete r MDRD equation. [facility] CMP GFR - >60 mL/min/1.73 m2 11/30 NA [facility] CMP Sex assigned at Male 11/30 NA [facility] PT PT - Patient 25.6 sec 11.8 - 13.8 11/30 H [facility] PT PT - INR 2.48 11/30 INDICATION [...] 2.5 - 3.5 of recurrent myocardial infarction [facility] PT Sex assigned at Male 11/30 NA [facility] SReview Anisocytosis 1+ None 11/30 * [facility] S[facility] RBC Morphology Abnormal Normal 11/30 * [facility] SReview Sex assigned at Male 11/30 NA [facility] AutoDiff * Auto Neutrophil Percent 73.6 % 40.0 - 80.0 11/29 NA [facility] AutoDiff * Auto Neutrophil Absolute 8.8 K/uL 11/29 NA [facility] AutoDiff * Auto Lymphocyte Percent 5.5 % 18.0 - 45.0 11/29 L [facility] AutoDiff * Auto Lymphocyte Absolute 0.7 K/uL 11/29 NA [facility] AutoDiff * Auto Monocyte Percent 20.9 % 3.0 - 12.0 11/29 H [facility] AutoDiff * Auto Monocyte Absolute 2.5 K/uL 11/29 NA [facility] AutoDiff * Auto Eosinophil Percent 0.0 % - <=7.0 11/29 NA [facility] AutoDiff * Auto Eosinophil Absolute 0.0 K/uL 11/29 NA [facility] AutoDiff * Auto Basophil Percent 0.0 % - <=2.0 11/29 NA [facility] AutoDiff * Auto Basophil Absolute 0.0 K/uL 11/29 NA [facility] AutoDiff * Sex assigned at Male 11/29 NA [facility] CBC WBC 12.0 K/uL 3.5 - 10.4 11/29 H [facility] CBC RBC 4.69 M/uL 4.00 - 6.20 11/29 NA [facility] CBC HGB 13.8 gm/dL 14.0 - 18.0 11/29 L [facility] CBC HCT 42.2 % 42.0 - 52.0 11/29 NA [facility] CBC MCV 89.9 fL 82.0 - 101.0 11/29 NA [facility] CBC MCH 29.3 pg 26.0 - 34.0 11/29 NA [facility] CBC MCHC 32.6 gm/dL 32.0 - 36.0 11/29 NA [facility] CBC RDW 15.1 % 11.0 - 15.0 11/29 H [facility] CBC PLT 121 K/uL 140 - 440 11/29 L [facility] CBC MPV 8.5 fL 7.4 - 11.4 11/29 NA [facility] CBC Manual Diff Y/N SReview 11/29 NA [facility] CBC Sex assigned at Male 11/29 NA [facility] CMP Sodium Level 140 mmol/L 136 - 145 11/29 NA [facility] CMP Potassium Level 4.1 mmol/L 3.5 - 5.1 11/29 NA [facility] CMP Chloride Level 102 mmol/L 98 - 107 11/29 NA [facility] CMP CO2/Carbon Dioxide 30.5 mmol/L 21.0 - 32.0 11/29 NA [facility] CMP Anion Gap 8 mmol/L 4 - 16 11/29 NA [facility] CMP Glucose, Random 115 mg/dL 70 - 95 11/29 H Reference ranges are based on a fasting specimen. [facility] CMP BUN 27 mg/dL 7 - 20 11/29 H [facility] CMP Creatinine 0.7 mg/dL 0.9 - 1.3 11/29 L [facility] CMP BUN/Creat Ratio 38.6 11/29 NA [facility] CMP Osmolality, Calculated 296 11/29 NA [facility] CMP Calcium Level 9.0 mg/dL 8.6 - 10.0 11/29 NA [facility] CMP Total Protein 6.6 gm/dL 6.4 - 8.2 11/29 NA [facility] CMP Albumin Level 3.8 gm/dL 3.5 - 5.0 11/29 NA [facility] CMP Globulin Level 2.8 gm/dL 2.0 - 4.0 11/29 NA [facility] CMP A/G Ratio 1.4 1.1 - 2.2 11/29 NA [facility] CMP ALP 59 units/L 38 - 126 11/29 NA [facility] CMP ALT 21 units/L 10 - 40 11/29 NA [facility] CMP AST 18 units/L 15 - 41 11/29 NA [facility] CMP Bilirubin, Total 0.5 mg/dL - <=1.0 11/29 NA [facility] CMP GFR - Non >60 mL/min/1.73 m2 11/29 NA <60 = Renal Insufficiency , <15 = Renal Failure. This equation is not applicable to person's under 18 years of age.eGFR calculation based on the IDNE traceable four-paramete r MDRD equation. [facility] CMP GFR - >60 mL/min/1.73 m2 11/29 NA [facility] CMP Sex assigned at Male 11/29 NA [facility] PT PT - Patient 26.6 sec 11.8 - 13.8 11/29 H [facility] PT PT - INR 2.61 11/29 INDICATION [...] 2.5 - 3.5 of recurrent myocardial infarction [facility] Sex assigned at Male 11/29 NA [facility] SReview Anisocytosis 1+ None 11/29 * [facility] SReview RBC Morphology Abnormal Normal 11/29 * [facility] SReview Sex assigned at Male 11/29 NA [facility] POC CG4+ Harshal VBG - pH 7.390 7.310 - 7.410 11/28 NA Device Code: LAB iSTATFacility : 0045Location: EDSerial Number: [id number] r Code: superkOperato r Name: Aditi Cornelius able Lot: [id number] [facility] POC CG4+ Harshal VBG - pCO2 46.6 mmHg 41.0 - 51.0 11/28 NA [facility] POC CG4+ Harshal VBG - pO2 45 mmHg 30 - 40 11/28 H [facility] POC CG4+ Harshal VBG - HCO3 28.2 mmol/L 23.0 - 28.0 11/28 H [facility] POC CG4+ Harshal VBG - TCO2 30 mmol/L 24 - 29 11/28 H [facility] POC CG4+ Harshal VBG - O2 Sat 80.0 % 0.0 - 75.0 11/28 H [facility] POC CG4+ Harshal VBG - BE 2 mmol/L -3 - 3 11/28 NA [facility] POC CG4+ Harshal POCT - Lactate/Lacti c Acid 0.90 mmol/L 0.50 - 1.90 11/28 NA [facility] POC CG4+ Harshal BG - Modified Bayron Test NA 11/28 NA [facility] POC CG4+ Harshal BG - Site OTHER 11/28 NA [facility] POC CG4+ Harshal Sex assigned at Male 11/28 NA [facility] BMP Sodium Level 136 mmol/L 136 - 145 11/28 NA [facility] BMP Potassium Level 3.7 mmol/L 3.5 - 5.1 11/28 NA [facility] BMP Chloride Level 100 mmol/L 98 - 107 11/28 NA [facility] BMP CO2/Carbon Dioxide 26.10 mmol/L 21.00 - 32.00 11/28 NA [facility] BMP Anion Gap 10 mmol/L 4 - 16 11/28 NA [facility] BMP Glucose, Random 105 mg/dL 70 - 95 11/28 H Reference ranges are based on a fasting specimen. [facility] BMP BUN 26 mg/dL 7 - 20 11/28 H [facility] BMP Creatinine 0.8 mg/dL 0.9 - 1.3 11/28 L [facility] BMP BUN/Creat Ratio 32.5 11/28 NA [facility] BMP Osmolality, Calculated 287 11/28 NA [facility] BMP Calcium Level 8.6 mg/dL 8.6 - 10.0 11/28 NA [facility] BMP GFR - Non >60 mL/min/1.73 m2 11/28 NA <60 = Renal Insufficiency , <15 = Renal Failure. This equation is not applicable to person's under 18 years of age.eGFR calculation based on the IDNE traceable four-paramete r MDRD equation. [facility] BMP GFR - >60 mL/min/1.73 m2 11/28 NA [facility] BMP Sex assigned at Male 11/28 NA [facility] BNPep BNP B-Natriuretic Peptide 58 pg/mL - <=100 11/28 NA [facility] BNPep Sex assigned at Male 11/28 NA [facility] CBC WBC 8.9 K/uL 3.5 - 10.4 11/28 NA [facility] CBC RBC 4.60 M/uL 4.00 - 6.20 11/28 NA [facility] CBC HGB 13.7 gm/dL 14.0 - 18.0 11/28 L [facility] CBC HCT 40.7 % 42.0 - 52.0 11/28 L [facility] CBC MCV 88.5 fL 82.0 - 101.0 11/28 NA [facility] CBC MCH 29.7 pg 26.0 - 34.0 11/28 NA [facility] CBC MCHC 33.5 gm/dL 32.0 - 36.0 11/28 NA [facility] CBC RDW 15.3 % 11.0 - 15.0 11/28 H [facility] CBC PLT 109 K/uL 140 - 440 11/28 L [facility] CBC MPV 7.9 fL 7.4 - 11.4 11/28 NA [facility] CBC Manual Diff Y/N Man Diff 11/28 NA [facility] CBC Sex assigned at Male 11/28 NA [facility] CK+MBIF CK, Total 164 units/L 32 - 230 11/28 NA [facility] CK+MBIF Sex assigned at Male 11/28 [facility] [id number] LU SARS-CoV-2 Source Nasopharyng eal 11/28 NA [facility] [id number] LU Influenza A Agn Molecular Detected Not [...] Test results? Y/N YAssay performed by RT-PCR [facility] [id number] LU Influenza B Agn Molecular Not Detected Not Detected 11/28 NA Assay performed by RT-PCR [facility] [id number] LU SARS-CoV-2 Molecular Not Detected Not Detected 11/28 NA Assay performed by RT-PCRThis test was performed under U.S. Food and Drug Administratio n (FDA) Emergency use Authorization (EUA). This test has been validated but the FDAs independent review of this validation is pending. [facility] [id number] LU SARS-CoV-2 First test? No 11/28 NA [facility] [id number] IGOR Health Care Worker? No 11/28 NA [facility] [id number] IGOR SARS-CoV-2 Is the Patient Hospitalized? No 11/28 NA [facility] [id number] IGOR SARS-CoV-2 Is the Patient in ICU? No 11/28 NA [facility] [id number] IGOR Patient From [facility]? Yes 11/28 NA [facility] [id number] IGOR Symptomatic per CDC? Yes 11/28 NA [facility] [id number] IGOR SARS-CoV-2 Is the Patient ? No 11/28 NA [facility] [id number] IGOR Sex assigned at Male 11/28 NA [facility] MDiff Bands % 1 % - <=6 11/28 NA [facility] MDiff Manual Neutrophil Percent 64 % 40 - 80 11/28 NA [facility] MDiff Manual Neutrophil Absolute 5.8 K/uL 11/28 NA [facility] MDiff Manual Lymphocyte Percent 6 % 18 - 45 11/28 L [facility] MDiff Manual Lymphocyte Absolute 0.5 K/uL 11/28 NA [facility] MDiff Manual Monocyte Percent 27 % 3 - 12 11/28 H [facility] MDiff Manual Monocyte Absolute 2.4 K/uL 11/28 NA [facility] MDiff Manual Eosinophil Percent 2 % - <=7 11/28 NA [facility] MDiff Manual Eosinophil Absolute 0.2 K/uL 11/28 NA [facility] MDiff RBC Morphology Abnormal Normal 11/28 * [facility] MDiff Anisocytosis 1+ None 11/28 * [facility] MDiff Polychromasia 1+ None 11/28 * [facility] MDiff Sex assigned at Male 11/28 NA [facility] Mg Magnesium Level 1.9 mg/dL 1.6 - 2.5 11/28 NA [facility] Mg Sex assigned at Male 11/28 NA [facility] PT - Patient 32.7 sec 11.8 - 13.8 11/28 H [facility] PT PT - INR 3.41 11/28 NA [...] 2.5 - 3.5 of recurrent myocardial infarction [facility] PT Sex assigned at Male 11/28 NA [facility] PTT PTT - Patient 42 sec 21 - 34 11/28 [facility] PTT Sex assigned at Male 11/28 [facility] [facility] Troponin I High Sensitivity 7 ng/L [...] testing may be helpful for interpretatio n. [facility] Sex assigned at Male 11/28 NA [facility] C Blood C Blood Final:No growth at 5 days.Sex assigned at :Male 11/28 [facility] C Blood C Blood Final:No growth at 5 days.Sex assigned at :Male 11/28 [facility] Diagnostic Reports Report Value Date Source Chest [...] Jo MD on 12/01/2021 06:58 HST 12/01/2021 [facility] 1 Vw Portable PROCEDURE: Chest 1 [...] Collin Simpson on 11/30/2021 10:36 HST 11/30/2021 [place] [id number] Vw Portable PROCEDURE: CHEST RAD IOGRAPH, 1 [...] Dubon MD on 11/29/2021 10:40 HST 11/29/2021 [facility] 1 Vw Portable PROCEDURE: CHEST RAD [...] Brown MD on 11/28/2021 05:06 HST 11/28/2021 [facility] Consultation Notes Results Value Date Source Portable [...] on 12/01/2021 06:58 HST Final 12/01/2021 45 [facility] Pulmonology Progress Note Patient: LEANNE JARAMILLO Age: 76 years Legal Sex: MALE : 1945 Subjective 1. Doing better overall 2. Now comfortable on room air 3. No longer have any wheezing 4. Afebrile; no leukocytosis 5. all medications reviewed Objective NOTE: This note was generated with the assistance of a voice dictation system, using the Shoot it! Edition. Circuit Court Clerk errors may very well be present and [...] 0 0 2100 Fluid Balance 4 798 1599 Physical Exam General Appearance: Morbidly obese, elderly [...] Normal strength, No tenderness Integumentary: Warm, Dry, [place], No skin lesions Neurologic: Alert, Oriented, Normal [...] mg/3 mL Neb Soln 3 mL, INH, [id number] Dextrose 50% Inj 50 mL Syr 25 [...] Encourage ambulation Continue DuoNeb every 6 hours [id number]-ody-ommdk with addition to AccuPAP Continue with Breo [...] of unspecified lower extremity, I82.409) 5. Anticoagulated (snf (current) use of anticoagulants, Z79.01) 6. Morbid [...] Chest Physiotherapy Incentive [facility]pirometry [facility] Oximetry Continuous Pulse Oximetry Respiratory Therapy Communication Order Updraft Nebulizer Treatment [id number] Male 12/01/2021 [facility] Pulmonology Consultation Patient: LEANNE JARAMILLO Age: 76 [...] shortness of breath. Patient is visiting from [place]. He states symptoms began 2 days ago [...] or vomiting. He apparently is visiting from [place], gotten his influenza vaccine and COVID booster [...] Normal strength, No tenderness Integumentary: Warm, Dry, [place], No skin lesions Neurologic: Alert, Oriented, Normal [...] Encourage ambulation Add DuoNeb every 6 hours veuybj-yut-baurx with addition to AccuPAP Continue with Breo [...] of unspecified lower extremity, I82.409) 5. 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 Morbid [...] Cap, ORAL, DAILY DuoNeb, 3 mL, INH, [id number], PRN flecainide, 50 mg, 0.5 Tab, ORAL, [...] Never. Are you ready to quit? N/A. [id number] Male 11/30/2021 [facility] Progress Note Patient: AMY JARAMILLO Age: 76 years Legal Sex: MALE : 1945 Chart is generated by Production Broaching Machine Operator, Ivon Valdes, for Dr. Rincon Date of [...] mg/3 mL Neb Soln 3 mL, INH, [id number] Dextrose 50% Inj 50 mL Syr 25 [...] of unspecified lower extremity, I82.409) 5. Anticoagulated (snf (current) use of anticoagulants, Z79.01) 6. Morbid obesity (Morbid (severe) obesity due to excess calories, E66.01) 7. Paroxysmal atrial fibrillation (Paroxysmal atrial fibrillation, I48.0) SOB (shortness of breath) (SOB (shortness of breath), 29266) Plan: Cont breathing treatments Cont steroids started [...] and medical decision making performed by me. [id number] Male 11/30/2021 [facility] Progress Note Patient: AMY JARAMILLO Age: 76 [...] mg/3 mL Neb Soln 3 mL, INH, [id number] albuterol-ipratrop 3-0.5 mg/3 mL Neb Soln 3 [...] of unspecified lower extremity, I82.409) 5. 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 Morbid obesity (Morbid (severe) obesity due to excess calories, E66.01) 7. Paroxysmal atrial fibrillation (Paroxysmal atrial fibrillation, I48.0) SOB (shortness of breath) (SOB (shortness of breath), 79976) Plan: Chest x-ray Start Azithromycin Cont breathing treatments Cont steroids Supplemental O2 as needed - goal sat 88-92 Advance care planning including the explanation and discussion of advance directives such as standard forms (with completion of such forms, when performed) by the physician or other qualified health professional; first 30 minutes, rnfr-is-xtwv with the patient, family member(s) and/or surrogate. Quality Measures Charting performed by Production Broaching Machine Operator, Ivon Valdes, for Dr. Rincon The scribe's documentation has been prepared under my direction and personally reviewed by me in its entirety. I confirm that the note above accurately reflects all work, treatment, and medical decision making performed by me. [id number] Male 11/29/2021 [facility] ED Physician Notes Patient: LEANNE JARAMILLO Age: 76 years Legal Sex: Male : 1945 Author: MD Randy, Shahbaz Trujillo Associated Diagnosis: Acute respiratory failure with hypoxia; COPD exacerbation; Influenza A Basic Information [facility] /DIETARY AID/PA Time Patient Seen face to face: Date [...] shortness of breath. Patient is visiting from [place]. He states symptoms began 2 days ago [...] HST, N/A DuoNeb: = 3 mL, INH, [id number]-[id number], PRN, Wheezing, STAT, NEB AMP, 11/28/21 3:03:00 [...] History. 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 Surgical history: Triage Surgical History. [...] method Bed scale Height/Length (cm) 175.6 cm [place] Body Weight Calculated 71.008 . Oxygen saturation: [...] B Agn Molecular Not Detected Patient From [facility]? Yes SARS-CoV-2 Molecular Not Detected [...] treatment plan, Patient indicated understanding of instructions. [id number] Male 11/28/2021 [facility] Discharge Summaries Results Value Date Source Discharge [...] of unspecified lower extremity, I82.409) 5. 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 Morbid [...] weeks prior to departing on vacation from [place] that he received his influenza vaccine with [...] other qualified health professional; first 30 minutes, bbma-ku-hout with the patient, family member(s) and/or surrogate [...] f/u with PCP 1 week Cardiac diet [id number] Male 12/01/2021 [facility] History and Physicals Results Value Date Source Admission H & P 11/28/2021 [facility] History and Physical Patient: LIBAN JARAMILLO Age: [...] weeks prior to departing on vacation from [place] that he received his influenza vaccine with [...] other qualified health professional; first 30 minutes, nuth-ru-krub with the patient, family member(s) and/or surrogate [...] (shortness of breath) (SOB (shortness of breath), 74234) Orders: acetaminophen (acetaminophen), 650 mg, ORAL, Q6H, PRN, Pain-Mild (Scale 1-3), TAB, 11/28/21 5:00:00 HST acetaminophen (acetaminophen), 650 mg, ORAL, Q6H, PRN, Fever, TAB, 11/28/21 5:00:00 HST albuterol-ipratropium (DuoNeb), = 3 mL, INH, [id number], PRN, Shortness of breath, NEB AMP, 11/28/21 [...] mg, ORAL, DAILY DuoNeb, 3 mL, INH, [id number], PRN flecainide, 50 mg, 1 Tab, ORAL, [...] smoker, quit more than 30 days ago. [id number] Male 11/28/2021 [facility] Vital Signs Vital Sign Value Date Comments Source Peripheral Pulse Rate 94 bpm 12/02/2021 45 [facility] Pulse Oximetry 90 % 12/02/2021 45 [facility] Respiratory rate 18 br/min 12/02/2021 45 [facility] Systolic BP 116 mm[Hg] 12/02/2021 45 [facility] Diastolic BP 69 mm[Hg] 12/02/2021 45 [facility] Mean BP 85 mm[Hg] 12/02/2021 45 [facility] Temperature (F) 97.8 [degF] 12/02/2021 [facility] Peripheral Pulse Rate 81 bpm 12/01/2021 45 [facility] Pulse Oximetry 92 % 12/01/[address] [facility] Respiratory rate 18 br/min 12/01/2021 45 [facility] Systolic BP 130 mm[Hg] 12/01/2021 45 [facility] Diastolic BP 83 mm[Hg] 12/01/2021 45 [facility] Mean BP 98 mm[Hg] 12/01/2021 45 [facility] Temperature (F) 97.9 [degF] 12/01/2021 45 [facility] Oxygen FiO2 21 % 12/01/2021 45 [facility] Respiratory rate 16 br/min 12/01/2021 45 [facility] Peripheral Pulse Rate 87 bpm 12/01/2021 45 [facility] Pulse Oximetry 93 % 12/01/[address] [facility] Oxygen FiO2 21 % 12/01/2021 45 [facility] Oxygen FiO2 21 % 12/01/2021 45 [facility] Temperature (F) 97.9 [degF] 12/01/2021 45 [facility] Systolic BP 124 mm[Hg] 12/01/2021 45 [facility] Diastolic BP 78 mm[Hg] 12/01/2021 45 [facility] Mean BP 93 mm[Hg] 12/01/2021 45 [facility] Weight (kg) 116.9 kg 12/01/2021 45 [facility] Oxygen flow 1 L/min 12/01/2021 45 [facility] Oxygen flow 1 L/min 11/30/2021 45 [facility] Oxygen flow 1 L/min 11/30/2021 45 [facility] Weight (kg) 116.3 kg 11/30/2021 45 [facility] Weight (kg) 118.3 kg 11/29/2021 45 [facility] HeightLength (cm) 175.6 cm 11/28/2021 [facility] Body Mass Index 38.2 kg/m2 11/28/2021 [facility] Dose calculation weight (kg) 117.8 kg 11/28/2021 45 [facility] Heart Rate Monitored 94 bpm 11/28/2021 45 [facility] Heart Rate Monitored 93 bpm 11/28/2021 45 [facility] Heart Rate Monitored 88 bpm 11/28/2021 45 [facility] Apical Heart Rate 94 bpm 11/28/2021 45 [facility] Dose calculation weight (kg) 117.8 kg 11/28/2021 45 [facility] HeightLength (cm) 175.6 cm 11/28/2021 45 [facility] Body Mass Index 38.2 kg/m2 11/28/2021 45 [facility] [place] Body Weight Calculated 71.008 11/28/2021 45 [facility] Encounters Location Location Details Encounter Type Encounter Number Reason For Visit Attending Provider ADM Date DC Date Status Source 45 [place] [facility] [place] [id number] CHRONIC OBSTRUCTI VE PULMONARY DISEASE (J44.1), INFLUENZA A (J10.1) Elias Kay 11/28 Active [facility] Procedures Procedure Code Date Perfomer Comments Source ROUTINE VENIPUNCTURE [id number] 12/01/2021 45 [facility] ROUTINE VENIPUNCTURE [id number] 11/30/2021 45 [facility] ROUTINE VENIPUNCTURE [id number] 11/29/2021 45 [facility] ROUTINE VENIPUNCTURE [id number] 11/28/2021 45 [facility] ROUTINE VENIPUNCTURE 79146 11/28/2021 45 [facility] Plan of Care Plan of Care Date Source Extracted from:Title: Hospit [facility] Discharge Note Author: MD Kay Tom-Oliver Date: 12/01/21 History of Present Illness 76-year-old male with a medical history notable for DVT, 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 Patient reports 2 weeks prior to?departing on vacation?from [place]?that he received his influenza vaccine with COVID [...] other qualified health professional; first 30 minutes, lqgg-vr-zesa with the patient, family member(s) and/or surrogate FULL CODE ? Discharge Date: ?_ ? Discharge Location: ?_ ? Addendum by MD Rahul, [facility] on December 01 2021 12:57:56 HST Discharge [...] plan, Patient indicated understanding of instructions. 12/02/[address] [place] [address] Social History Social History Date Source Social History TypeResponse Smoking Status Is there a smoker in the household? No; *Do you have concerns about tobacco use in household? No; Never (less than 100 in lifetime); Never; *Are you ready to quit? N/A entered on: 11/28/21 Sex Male [address] [place] [address] Social History TypeResponse Smoking Status Is there a smoker in the household? No; *Do you have concerns about tobacco use in household? No; Never (less than 100 in lifetime); Never; *Are you ready to quit? N/A entered on: 11/28/21 Sex Male [address] [place] [address] Social History TypeResponse Smoking Status Is there a smoker in the household? No; *Do you have concerns about tobacco use in household? No; Never (less than 100 in lifetime); Never; *Are you ready to quit? N/A entered on: 11/28/21 Sex Male [address] [place] [address]
--- NOTE | 2024-01-27 13:37 | MHC.OFFVISCO ---
Intake Intake Visit Reasons: Anticoagulation Allergies albuterol Adverse Reaction (Intermediate, Verified 01/27/24 13:25) Palpitations amoxicillin [From Augmentin] Adverse Reaction (Intermediate, Verified 01/27/24 13:25) Nausea and Vomiting, dizziness clavulanic acid [From Augmentin] Adverse Reaction (Intermediate, Verified 01/27/24 13:25) Nausea and Vomiting, dizziness Medication List - Last Reconciled 01/27/24 by Lottie Avila RN acetaminophen 1,000 mg PO Q6H PRN atorvastatin 20 mg PO DAILY azithromycin 250 mg PO .MWF 90 days diltiazem HCl CD 120 mg PO DAILY docusate sodium 200 mg PO DAILY flecainide 100 mg PO Q12H fluticasone propion-salmeterol 250-50 mcg/dose (Wixela Inhub) 1 inh inhalation Q12H 30 days fluticasone propion-salmeterol 500-50 mcg/dose (Wixela Inhub) 1 inh inhalation BID 90 days furosemide 80 mg (2 x 40 mg) PO QAM levalbuterol HCl 1.25 mg (0.5 mL) inhalation RQ4H WHILE AWAKE 90 days levalbuterol tartrate 45 mcg/actuation 2 puffs inhalation Q4-6H PRN 30 days multivitamin 1 tab PO DAILY potassium chloride ER 10 mEq PO DAILY prednisone 5 mg PO 4XW 30 days sennosides (senna) 25.8 mg PO BEDTIME warfarin See Protocol 7.5 mg orally 7.5 X 4 DAYS/ 5MG X 3 DAYS; Nursing Note INR: 2.8 in therapeutic range 2-3 Medications and supplements reviewed No changes in health, diet, medications, or supplements, Denies any signs and symptoms of bleeding or bruising or clotting. Bleeding, bruising, clotting discussed Nutritional guidance given Dose: 7.5mg X 4 days and 5mg X 3 days F/U INR: 2 weeks Patient verbalizes understanding of instructions given Anti-Coag Initial Assessment Social Hx Patient Tobacco Use Status: Former Tobacco user alcohol intake: current Alcohol intake frequency: holidays/special occasions only Coding Level of Care Code Est Patient Level 1 Diagnoses Current use of anticoagulant therapy Z79.01 Results AMB INR Fingerstick AMB INR Fingerstick 2.8 Last Edit by Lottie Avila RN on 01/27/24 13:32 interface delay Assessment & Plan Assessment & Plan (1) Current use of anticoagulant therapy: Code(s): Z79.01 - terminal clerk (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
[2024-01-27 13:38] LABS: Prothrombin Time Whole Bld POC 33.6 sec (11.1-13.5); ~PT, ~INR - Anti Coag Clinic 2.8 (0.9-1.1)
== END 2024-01-27 13:38 | disposition home or self-care (01) ==
LOC: HO.ACS 13:15
PROVIDERS: PCP Internal Medicine; Visit Provider Internal Medicine
DX: Z79.01 Long term (current) use of anticoagulants (principal)

== ENCOUNTER → 2024-01-27 13:15 | Outpatient (BNVA) | payer MEDICARE, SELFPAY | PROVIDERS: PCP Internal Medicine; Visit Provider Internal Medicine | DX: I48.19 Other persistent atrial fibrillation (principal); Z86.718 Personal history of other venous thrombosis and embolism; Z79.01 Long term (current) use of anticoagulants; Z51.81 Encounter for therapeutic drug level monitoring | CPT/HCPCS: 85610; 99211 ==

== ENCOUNTER 2024-02-10 13:27 | Outpatient (AMB) | payer MEDICARE, SELFPAY ==
[2024-02-10 13:34] LABS: Prothrombin Time Whole Bld POC 40.4 sec (11.1-13.5); ~PT, ~INR - Anti Coag Clinic 3.4 (0.9-1.1)
--- NOTE | 2024-02-10 13:36 | MHC.OFFVISCO ---
Intake Intake Visit Reasons: Anticoagulation Allergies albuterol Adverse Reaction (Intermediate, Verified 02/10/24 13:29) Palpitations amoxicillin [From Augmentin] Adverse Reaction (Intermediate, Verified 02/10/24 13:29) Nausea and Vomiting, dizziness clavulanic acid [From Augmentin] Adverse Reaction (Intermediate, Verified 02/10/24 13:29) Nausea and Vomiting, dizziness Nursing Note Pt to ACS with portable O2 at 2L. States his COPD is acting up. INR: 3.4?out of therapeutic range of 2-3 Medications and supplements reviewed Patient status: states he has been sick since 02/05/24 or the last 5 days. Medications or supplements: no changes other that Tylenol daily Diet: appetite is decreased Denies any signs and symptoms of bleeding or clotting or unusual bruising Bleeding, bruising, clotting discussed Nutritional guidance given: to have a serving of greens today Dose: decrease today's dose to 2.5mg (reg 5mg) then resume usual dose of 7.5mg X 4 days and 5 mg X 3 days (Mon, Wed & Sat) F/U INR Date : 2 weeks?? Patient verbalizing understanding of instructions given. Anti-Coag Initial Assessment Social Hx Patient Tobacco Use Status: Former Tobacco user alcohol intake: current Alcohol intake frequency: holidays/special occasions only Coding Level of Care Code Est Patient Level 1 Diagnoses Current use of anticoagulant therapy Z79.01 Assessment & Plan Assessment & Plan (1) Current use of anticoagulant therapy: Code(s): Z79.01 - jail (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
== END 2024-02-10 13:42 | disposition home or self-care (01) ==
LOC: HO.ACS 13:27
PROVIDERS: PCP Internal Medicine; Visit Provider Internal Medicine
DX: Z79.01 Long term (current) use of anticoagulants (principal)

== ENCOUNTER → 2024-02-10 13:27 | Outpatient (BNVA) | payer MEDICARE, SELFPAY | PROVIDERS: PCP Internal Medicine; Visit Provider Internal Medicine | DX: I48.19 Other persistent atrial fibrillation (principal); Z86.718 Personal history of other venous thrombosis and embolism; Z79.01 Long term (current) use of anticoagulants; Z51.81 Encounter for therapeutic drug level monitoring | CPT/HCPCS: 85610; 99211 ==

== ENCOUNTER → 2024-02-21 10:37 | Outpatient (BNVA) | payer MEDICARE, SELFPAY | PROVIDERS: PCP Internal Medicine; Visit Provider Internal Medicine ==

== ENCOUNTER 2024-03-05 10:52 | Inpatient (IN) | payer MEDICARE, SELFPAY ==
[2024-03-05] VITALS (9 sets, daily range): BP systolic 119–140; BP diastolic 57–72; PULSE 74–100; RESP 18–22; TEMP 36.2–36.8; O2SAT 88–96; BMI 29.0
--- NOTE | ~2024-03-05 | CT_ITS ---
CLINICAL HISTORY: cough, hypoxia, SOB CT angiography chest with contrast. 3D Postprocessing. Comparison: CT/REG/SR - CT CHEST WO IV CON - 12/17/21 00:42 EDT Findings: The heart is normal size. RV/LV ratio is normal. The thoracic aorta is normal caliber. No pulmonary artery filling defects. The visualized thyroid and mediastinum are unremarkable. There are foci of consolidation and volume loss within the lingula and bilateral lower lobes. No pleural effusion. Very mild emphysematous changes at the lung apices. Foci of consolidation and volume loss within the lingula and bilateral lower lobes may be secondary to atelectasis and/or pneumonia. There are numerous liver cysts. There is a 2.2 cm left adrenal nodule, similar to the prior study, compatible with an adenoma. No acute fracture. Prior sternotomy. IMPRESSION: No evidence of pulmonary artery embolism. This document has been electronically signed by: Sofi Do MD on 03/05/2024 18:47:57
--- NOTE | ~2024-03-05 | US_ITS ---
EXAMINATION: US TRIPLEX LOWER EXTREMITY, BILATERAL CLINICAL INFORMATION: Bilateral lower extremity edema and pain. COMPARISON: 04/01/2021, 09/11/2021. TECHNIQUE: Color-flow triplex imaging with spectral analysis and compression Doppler were performed on the bilateral lower extremities. FINDINGS: Respiratory variation, normal compression and augmented flow are noted throughout the bilateral lower extremities. The visualized common femoral vein, superficial femoral vein, profunda femoral vein, popliteal vein and midcalf peroneal and posterior tibial venous segments show no evidence of deep venous thrombosis bilaterally. There is no Vazquez's cyst. US/US venous duplex LE BI IMPRESSION: No evidence of deep venous thrombosis involving the bilateral lower extremities. Electronically signed by: Kev Johnson MD 03/05/2024 04:48 PM [facility] [place]
--- NOTE | ~2024-03-05 | XR_ITS ---
EXAMINATION: XR CHEST 2 VIEWS HISTORY: pain COMPARISON: Comparison is made with the prior examination dated 11/20/2022. FINDINGS: PA and lateral views of the chest are submitted. Again seen is elevation of the left hemidiaphragm with adjacent subsegmental atelectasis. Right lung is clear. There is no pleural effusion, pneumothorax, or pulmonary vascular congestion. The heart is normal in size. The patient is status post median sternotomy. There is degenerative disc disease of the spine. XR/XR chest 2V IMPRESSION: Elevated left hemidiaphragm with adjacent subsegmental atelectasis. No acute cardiopulmonary abnormality. Electronically signed by: Waldemar Pina MD 03/05/2024 12:16 PM EST
--- NOTE | 2024-03-05 11:46 | ED_ITS ---
HPI - General Adult General Chief complaint: Upper Respiratory Symptoms Stated complaint: quest pneumonia diff breathing Time Seen by Provider: 03/05/24 15:49 Source: patient, RN notes reviewed and old records reviewed Mode of arrival: ambulatory History of Present Illness ED Provider: Amparo Puri PA-C HPI narrative: 78-year-old male with a past medical history CHF, proximal AFib on Coumadin, DEREK on CPAP, COPD on 2 L NC p.r.n., PE/DVT, presenting to the ED complaining of persistent cough, SOB, and worsening LE pitting edema x 1 week. Admits was recently diagnosed with RSV/pneumonia finished course of Doxycycline/Ceftin and Prednisone on 03/01 without relief. Denies SOB at rest, reports orthopnea and dyspnea on exertion. Denies fever, chills, travel, abdominal pain, chest pain Related Data Home Medications ?Medication ?Instructions ?Recorded ?Confirmed atorvastatin 20 mg tablet 20 mg PO DAILY 12/08/19 02/21/24 diltiazem HCl 120 mg 120 mg PO DAILY 12/08/19 02/21/24 capsule,extended release 24 hr docusate sodium 100 mg capsule 200 mg PO DAILY 12/08/19 02/21/24 sennosides 8.6 mg capsule (senna) 25.8 mg PO BEDTIME 12/08/19 02/21/24 multivitamin 1 tab PO DAILY 06/15/21 02/21/24 acetaminophen 500 mg tablet 1,000 mg PO Q6H PRN Back Pain 12/17/21 02/21/24 potassium chloride 10 mEq 10 meq PO DAILY 10/03/22 02/21/24 tablet,extended release(part/cryst) warfarin 5 mg tablet 7.5 mg PO .COMPLEX 01/13/24 02/21/24 cefuroxime axetil 500 mg tablet 500 mg PO BID 02/21/24 02/21/24 doxycycline hyclate 100 mg capsule 100 mg PO BID 02/21/24 02/21/24 prednisone 20 mg tablet 20 mg PO BID 02/21/24 02/21/24 Previous Rx's ?Medication ?Instructions ?Recorded levalbuterol HCl 1.25 mg/0.5 mL 1.25 mg (0.5 mL) inhalation RQ4H 07/11/22 solution for nebulization WHILE AWAKE copd 90 days #180 ea azithromycin 250 mg tablet 250 mg PO .MWF COPD/BRONCHITIS 90 06/06/23 days #36 tabs fluticasone 500 mcg-salmeterol 50 1 inh inhalation BID 90 days #3 ea 09/04/23 mcg/dose blistr powdr for inhalation ([facility]ix[facility] Inhub) prednisone 5 mg tablet 5 mg PO 4XW COPD 30 days #18 tabs 12/02/23 flecainide 100 mg tablet 100 mg PO Q12H #90 tabs 12/19/23 fluticasone 250 mcg-salmeterol 50 1 inh inhalation Q12H copd 30 days 01/22/24 mcg/dose blistr powdr for #60 ea inhalation ([employer] Inhub) levalbuterol tartrate 45 2 puff inhalation Q4-6H PRN 01/22/24 mcg/actuation aerosol inhaler shortness of breath 30 days #15 grams furosemide 40 mg tablet 40 mg PO BID #90 tabs 02/19/24 Allergies Allergy/AdvReac Type Severity Reaction Status Date / Time albuterol AdvReac Intermediate Palpitation Verified 03/05/24 11:50 s amoxicillin [From Augmentin] AdvReac Intermediate Nausea and Verified 03/05/24 11:50 Vomiting, dizziness clavulanic acid AdvReac Intermediate Nausea and Verified 03/05/24 11:50 [From Augmentin] Vomiting, dizziness Review of Systems 2 Review of Systems: Yes all other systems are reviewed and are negative Constitutional: Constitutional: Reports as per [facility] Past Medical History Attestation statement: The following information was validated with the patient. Source: old records reviewed Medical History Hypoventilation Restrictive airway disease (HFpEF) heart failure with preserved ejection fraction CHF exacerbation Cough Paroxysmal atrial fibrillation Lymphedema of both lower extremities DEREK on CPAP Obesity (BMI 35.0-39.9 without comorbidity) COPD (chronic obstructive pulmonary disease) Varicose veins of right lower extremity with inflammation Surgical History History of appendectomy Family History Family History Father No problems noted. Mother No problems noted. Sister No problems noted. Sister No problems noted. Son No problems noted. Daughter No problems noted. Social History Social History Household Members: Spouse Housing: House Are you a primary tire care manager to a significant other at home: No Do you presently have visiting nurse or other home services: No Alcohol intake: current Alcohol intake frequency: holidays/special occasions only Alcohol type: beer Comment: PT USES CALL LIGHT APPROPRIATELY Patient Tobacco Use Status: Former Tobacco user Smoked in Last 30 Days: No Use of substances other than those prescribed or required for medical reasons: No Advance Directives: Yes Advance Directives on File: Yes Advance Directives Date on File: 03/05/24 Do you have a plan to hurt others: No Plan service: Yes Current occupational status: retired Physical Exam ED Vital Signs: Vital Signs - 24 hr 03/05/24 11:47 03/05/24 16:01 03/05/24 16:17 Temperature 97.1 F 97.9 F Pulse Rate 78 74 Respiratory Rate 18 18 Blood Pressure 134/64 119/58 L Pulse Oximetry 96 93 88 L Oxygen Delivery Method Room Air Room Air Room Air BMI result Body Mass Index 29.0 Const General: cooperative, healthy appearing and no acute distress Orientation/consciousness: patient oriented x3 Limitations: no limitations HENMT Head: Yes normal to inspection and Yes atraumatic Ears: hearing grossly normal bilaterally General nose exam: Normal external nose present Face and sinus: Yes normal facial exam Eyes General: appearance normal, both eyes and all related structures EOM: EOMs intact bilaterally Neck Neck: Yes normal visual inspection and Yes no meningeal signs Resp Other: coarse lung sounds throughout Effort & Inspection: normal respiratory effort, Actively coughing Quality: actively coughing and no respiratory distress Cardio Rate: regular rate Heart sounds: S1 normal heart sound present and S2 normal heart sound present GI Inspection: Yes normal to inspection Palpation (GI): Soft to palpation, nontender, no guarding and not rigid Skin Rashes: no rashes Wounds: no wounds Neuro General: patient oriented x3, tone normal and no meningeal signs Cranial nerves: Yes CN's II-XII intact bilaterally Gait exam (Neuro): Normal gait present Extrem Other: + bilateral LE pitting edema > right (chronically per patient from prior DVT) Course Course Course Narrative: RME, this is a rapid medical exam performed by Rickie Dhillon please refer to primary provider for complete H&P- 78 year old male past medical history significant for atrial flutter, ventral regurgitation, heart failure with preserved ejection fraction, COPD. The patient uses oxygen via nasal cannula 2 L p.r.n. the patient was treated for RSV and pneumonia with doxycycline and Ceftin. His last dose of antibiotics was 4 days ago. Results with prednisone. The patient is also anticoagulated with warfarin. Plan for labs, chest x-ray, viral swabs -1617--no leukocytosis. H&H at patient's baseline. INR 2.4, therapeutic. CO2 32 -BUN acute on chronically elevated. BNP 24 -COVID/FLU/RSV negative > patient desatted to 88% on RA with ambulation. XR chest 2V IMPRESSION: Elevated left hemidiaphragm with adjacent subsegmental atelectasis. No acute cardiopulmonary abnormality. > will obtain CT PE protocol to rule out PE/pneumonia 1849--CT angio chest PE protocol Findings: The heart is normal size. RV/LV ratio is normal. The thoracic aorta is normal caliber. No pulmonary artery filling defects. The visualized thyroid and mediastinum are unremarkable. There are foci of consolidation and volume loss within the lingula and bilateral lower lobes. No pleural effusion. Very mild emphysematous changes at the lung apices. Foci of consolidation and volume loss within the lingula and bilateral lower lobes may be secondary to atelectasis and/or pneumonia. There are numerous liver cysts. There is a 2.2 cm left adrenal nodule, similar to the prior study, compatible with an adenoma. No acute fracture. Prior sternotomy. IMPRESSION: No evidence of pulmonary artery embolism > CT showing multifocal pneumonia. Plan for admission due to hypoxia and failed outpatient treatment. -1856--patient's O2 dropped to 86% at rest > case discussed with hospitalist, Dr. Tran Medications Administered Discontinued Medications Generic Name Dose Route Start Last Admin Trade Name Freq PRN Reason Stop Dose Admin Albuterol Sulfate 12 puff 03/05/24 16:21 03/05/24 16:45 Albuterol Sulfate 90 Mcg 8 Gm Inhaler INHALE 03/05/24 16:22 12 puff ONCE ONE Administration Iohexol 100 ml 03/05/24 17:22 03/05/24 17:22 Iohexol 350 Mg/Ml 100 Ml Infus..Btl IV 01/23/25 17:23 65 ml ONCE ONE Administration Methylprednisolone Sodium Succinate 60 mg 03/05/24 16:18 03/05/24 17:14 Methylprednisolone Sod Succ 125 Mg/2 Ml Vial IVPUSH 03/05/24 16:19 60 mg ONCE ONE Administration Medical Decision Making Medical Decision Making [facility] Narrative: 78-year-old male with a past medical history CHF, proximal AFib on Coumadin, DEREK on CPAP, COPD on 2 L NC p.r.n., PE/DVT, presenting to the ED complaining of persistent cough, SOB, and worsening LE pitting edema x 1 week. On exam initially satting 89% on RA, increased to 93-94% on RA with good breaths. Active coughing appreciated with coarse lung sounds throughout, bilateral LE pitting edema noted > RLE. Concern for persistent pneumonia vs bronchitis vs PE/DVT vs CHF. Low suspicion for ACS or dissection at this time Plan: EKG, labs, CXR, viral testing, ED bronch protocol, ambulating O2 Please refer to course for remaining clinical decision making, interpretation of labs/imaging results, and discussions with consultants and/or family members. Differential Diagnosis Differential Diagnoses: The differential diagnosis associated with the presentation includes As above Admission/Observation Consideration of admission/observation: Escalation of care including admission/observation considered Consult Healthcare Provider Management of the patient was discussed with: Hospitalist Lab Data [facility] Lab Attestation statement: I reviewed the patient's lab results. 03/05/24 12:36 03/05/24 12:36 Labs: Lab Results 03/05/24 Range/Units 12:36 WBC 6.8 (4.8-10.8) X10*3/uL RBC 4.36 L (4.60-5.80) X10*6/uL Hgb 13.0 L (14.0-18.0) g/dl Hct 40.8 L (42.0-52.0) % MCV 93.6 (80.0-98.0) fL MCH 29.8 (27.0-33.0) pg MCHC 31.9 (31.0-36.0) g/dl RDW 15.3 (11.0-16.0) % Plt Count 139 L (160-400) X10*3/uL MPV 9.6 (9.4-12.4) fL Immature Gran % (Auto) 0.6 H (0.0-0.4) % Neut % (Auto) 59.1 (45-73) % Lymph % (Auto) 17.9 L (20-40) % Bartholomew % (Auto) 21.4 H (2-11) % Eos % (Auto) 0.7 (0-4) % Baso % (Auto) 0.3 (0-2) % Lymph # (Auto) 1.2 (1.2-4.9) X10*3/uL Bartholomew # (Auto) 1.5 H (0.1-1.2) X10*3/uL Eos # (Auto) 0.1 (0.0-0.4) X10*3/uL Baso # (Auto) 0.0 (0.0-0.2) X10*3/uL Abs Immat Gran (auto) 0.04 H (0.00-0.03) X10*3/uL Absolute Neuts (auto) 4.0 (2.0-8.3) x10*3/uL Absolute Nucleated RBC 0.000 (0.0-0.012) X10*3/uL Nucleated RBC % (auto) 0.0 (0.0-0.2) /100WBC Smear Tech's Comments VERIFIED PT 27.8 H D (10.9-12.4) SEC INR 2.4 H (0.9-1.1) Sodium 145 (135-145) mmol/L Potassium 3.7 (3.3-5.1) mmol/L Chloride 106 (96-108) mmol/L Carbon Dioxide 32 H (22-29) mmol/L Anion Gap 11 L (12-20) BUN 28 H (9-16) mg/dL Creatinine 0.80 (0.5-1.4) mg/dL Estim Creat Clear Calc 81.3 Estimated GFR > 60 Random Glucose 81 (60-115) mg/dL Lactic Acid 1.0 (0.5-2.0) mmol/L Calcium 9.0 (8.4-10.2) mg/dL Magnesium 2.0 (1.6-2.6) mg/dL Total Bilirubin 0.5 (0.0-1.0) mg/dL AST 22 (5-37) U/L ALT 22 (0-40) U/L Alkaline Phosphatase 74 (39-117) U/L Troponin I High Sens 2.9 (<3.5-35.0) ng/L B-Natriuretic Peptide 24 (<100) pg/mL Total Protein 7.2 (6.5-8.0) g/dL Albumin 3.7 (3.5-5.0) g/dL Lipase 34 (8-78) U/L Influenza Type A (PCR) NEGATIVE (Negative) Influenza Type B (PCR) NEGATIVE (Negative) RSV RNA Qual (PCR) NEGATIVE (Negative) SARS-CoV-2 RNA (RT-PCR) NEGATIVE (Negative) Independent Interpretation I performed an independent interpretation of an: EKG, Plain X-Ray and CT Scan Radiology Impression Discussion of test interpretation with radiology: I have reviewed the radiologist's reading. Independent Historian Clinical information obtained from an independent historian. History obtained from or confirmed by: Spouse External Record Review External record reviewed: Inpatient record, Office record, Outpatient record, Prior outpatient labs, Prior outpatient radiology, Primary care record and Outside ED record Tests considered The following testing was considered but not selected: As above Prescription Management I considered prescription management with: Other Chronic Conditions Patient?s care impacted by: Other (AFib, CHF, DEREK on CPAP, COPD) Social Determinants Patient?s care significantly limited by Social Determinants of Health including: Other Social Determinant of Health Critical Care Time Critical Care Time Critical Care Time: Yes Total Critical Care Time: 45 Attestation: I have personally provided critical care time exclusive of time spent on separately billable procedures. Time includes review of lab data, radiology results, discussion with consultants, and monitoring for potential decompensation. Intervention performed as documented. Discharge Plan Discharge Clinical Impression: Hypoxia, Multifocal pneumonia, CHF (congestive heart failure) Patient Disposition: Admitted As Inpatient Print Language: [place] Zealander
--- NOTE | 2024-03-05 11:50 | ECG_ITS ---
Test Reason : diff breathing/ pneumonia Blood Pressure : */* mmHG Vent. Rate : 76 BPM Atrial Rate : 76 BPM P-R Int : 200 ms QRS Dur : 152 ms QT Int : 424 ms P-R-T Axes : 80 1 14 degrees QTcB Int : 477 ms Normal sinus rhythm Right bundle branch block Abnormal ECG When compared with ECG of 01-Jan-2024 14:12, [place] interval has decreased Referred By: Sunny Dhillon Electronically Signed By: AVTAR MURPHY MD
[2024-03-05 12:56] LABS: Basophils Percent Auto 0.3 % (0-2); Eosinophils Absolute Auto 0.1 X10*3/uL (0.0-0.4); Eosinophils Percent Auto 0.7 % (0-4); Hematocrit 40.8 % (42.0-52.0); Imm Gran Abs Auto 0.04 X10*3/uL (0.00-0.03); Imm Gran Pct Auto 0.6 % (0.0-0.4); Lymphocytes Absolute Auto 1.2 X10*3/uL (1.2-4.9); Lymphocytes Percent Auto 17.9 % (20-40); MANUAL DIFF FLAG SCAN; Mean Corpuscular HGB Conc 31.9 g/dl (31.0-36.0); Mean Corpuscular Hemoglobin 29.8 pg (27.0-33.0); Mean Corpuscular Volume 93.6 fL (80.0-98.0); Mean Platelet Volume 9.6 fL (9.4-12.4); Monocytes Absolute Auto 1.5 X10*3/uL (0.1-1.2); Monocytes Percent Auto 21.4 % (2-11); Neutrophils Percent Auto 59.1 % (45-73); Platelet Count 139 X10*3/uL (160-400); Red Blood Count 4.36 X10*6/uL (4.60-5.80); Red Cell Distribution Width 15.3 % (11.0-16.0); SCAN SMEAR FLAG 1; White Blood Count 6.8 X10*3/uL (4.8-10.8)
[2024-03-05 13:02] LABS: INTERNATIONAL NORM RATIO 2.4 (0.9-1.1); Prothrombin Time 27.8 SEC (10.9-12.4)
[2024-03-05 13:14] LABS: SLIDE REVIEW VERIFIED
[2024-03-05 13:15] LABS: Alanine Aminotransferase 22 U/L (0-40); Albumin Level 3.7 g/dL (3.5-5.0); Anion Gap 11 (12-20); Aspartate Amino Transferase 22 U/L (5-37); Blood Urea Nitrogen 28 mg/dL (9-16); Carbon Dioxide 32 mmol/L (22-29); Chloride 106 mmol/L (96-108); Creatinine Clr Calc Pharmacy 81.3; Estimated Glomerular Filt Rate > 60; Glucose Random 81 mg/dL (60-115); Lipase 34 U/L (8-78); Potassium 3.7 mmol/L (3.3-5.1); Sodium 145 mmol/L (135-145); Total Protein 7.2 g/dL (6.5-8.0)
[2024-03-05 13:19] LABS: B Type Natriuretic Peptide 24 pg/mL (<100)
[2024-03-05 13:23] LABS: Alkaline Phosphatase 74 U/L (39-117); Bilirubin Total 0.5 mg/dL (0.0-1.0)
[2024-03-05 13:45] LABS: Influenza A PCR NEGATIVE (Negative); Influenza B PCR NEGATIVE (Negative); Resp Syncy Virus RNA Qual PCR NEGATIVE (Negative); SARS COV2 PCR INHOUSE NEGATIVE (Negative)
--- NOTE | 2024-03-05 16:00 | MHC.EDTECH ---
Walked with patient DR order oxygen dropped to 88 from baseline
[2024-03-05 16:35] LABS: Troponin-I High Sensitivity 2.9 ng/L (<3.5-35.0)
[2024-03-05] MEDS: Albuterol Sulfate 90 MCG 8 GM INHALER 12 PUFF INHALE (16:45)
[2024-03-05] MEDS: methylPREDNISolone Sod Succ 125 MG/2 ML VIAL 60 MG IVPUSH (17:14)
[2024-03-05] MEDS: iohexoL 350 MG/ML 100 ML INFUS..BTL IV (17:22)
--- OUTSIDE RECORDS SUMMARY | 2024-03-05 18:33 | XMS_ITS | Continuity of Care Document ---
Author Name [facility] Organization [facility] Care Team Providers Care Weir Fisher Name Role Phone [facility] Unavailable Unavailable Problems Problem Status Onset Date Classification Date Reported Comments Source Acute embolism and thrombosis of unspeci Active 11/28/2021 [facility] Acute respiratory failure with hypoxia Active 11/28/2021 12/02/2021 45 [facility] COPD exacerbation Active 11/28/2021 12/02/2021 45 [facility] Influenza A Active 11/28/2021 12/02/2021 45 [facility] Paroxysmal atrial fibrillation Active 11/28/2021 12/02/2021 45 [facility] Anticoagulated Active 11/28/2021 12/02/2021 45 [facility] Morbid obesity Active 11/28/2021 12/02/2021 45 [facility] Shortness of breath Active [facility] Medications Medication Details Route Status Patient Instructions Ordering Provider Order Date Source guaiFENesin 600 mg oral tablet, extended release = 1 Tab, ORAL, BID, X 5 Day(s), # 10 Tab, 0 Refill(s), Acute, Pharmacy: [facility] REQQImonica Phy, 175.6, cm, 11/28/21 6:49:00 HST, Height/Length (cm), 117.8, kg, 11/28/21 6:49:00 HST, Dose calculation weight (kg) Active 022 45 [facility] Albuterol (Eqv-Proventil HFA) 90 mcg/inh inhalation aerosol 2 Puff, INH, Q6H, # 8.5 gm, 0 Refill(s), Maintenance, Pharmacy: [facility] REQQIchantal Phy, 175.6, cm, 11/28/21 6:49:00 HST, Height/Length (cm), 117.8, kg, 11/28/21 6:49:00 HST, Dose calculation weight (kg) Active [facility] Tamiflu 75 mg oral capsule = 1 Cap, ORAL, BID, X 2 Day(s), # 4 Cap, 0 Refill(s), Acute, [facility], 175.6, cm, 11/28/21 6:49:00 HST, Height/Length (cm), 117.8, kg, 11/28/21 6:49:00 HST, Dose calculation weight (kg) Active [facility] predniSONE 50 mg oral tablet = 1 Tab, ORAL, DAILY, X 5 Day(s), # 5 Tab, 0 Refill(s), Acute, Pharmacy: [facility], 175.6, cm, 11/28/21 6:49:00 HST, Height/Length (cm), 117.8, kg, 11/28/21 6:49:00 HST, Dose calculation weight (kg) Active [facility] multivitamin oral 1 Tab, ORAL, DAILY, OTC, Maintenance Active [facility] Senna = 1 Tab, ORAL, DAILY, OTC, Maintenance Active [facility] warfarin 5 mg oral tablet = 1.5 Tab, ORAL, QTThSa, Maintenance Active [facility] PREPACK Albuterol (0.83 mg/mL) 2.5mg/3mL #6 3 mL, INH, Q4H, PRN Shortness of breath/wheezin g, Maintenance Active [facility] Wixela Inhub 500 mcg-50 mcg inhalation powder 1 Inhalation, INH, BID, Maintenance Active [facility] warfarin 5 mg oral tablet = 1 Tab, ORAL, QSuMWF, 0 Refill(s), Maintenance Active [facility] DilTIAZem (Eqv-Cardizem CD) 120 mg/24 hours oral capsule, extended release = 1 Cap, ORAL, DAILY, 0 Refill(s), Maintenance Active [facility] Klor-Con 10 mEq oral tablet, extended release = 1 Tab, ORAL, DAILY, 0 Refill(s), Maintenance Active 45 [facility] flecainide 50 mg oral tablet = 1 Tab, ORAL, Q12H, 0 Refill(s), Maintenance Active 45 [facility] furosemide 40 mg oral tablet = 1 Tab, ORAL, BID, 0 Refill(s), Maintenance Active 45 [facility] atorvastatin 20 mg oral tablet = 1 Tab, ORAL, DAILY, 0 Refill(s), Maintenance Active 45 [facility] Allergies, Adverse Reactions, Alerts Substance Category Reaction Severity Reaction type Status Date Reported Comments Source Augmentin Assertion vomiting, dizziness Drug allergy Active 45 [facility] Results Order Name Results Value Reference Range Date Interpretation Comments Source AutoDiff * Auto Neutrophil Percent 67.8 % 40.0 - 80.0 12/01 [facility] [place] AutoDiff * Auto Neutrophil Absolute 6.1 K/uL 12/01 [facility] [place] AutoDiff * Auto Lymphocyte Percent 13.0 % 18.0 - 45.0 12/01 L [facility] AutoDiff * Auto Lymphocyte Absolute 1.2 K/uL 12/01 [facility] [place] AutoDiff * Auto Monocyte Percent 19.0 % 3.0 - 12.0 12/01 H [facility] AutoDiff * Auto Monocyte Absolute 1.7 K/uL 12/01 [facility] [place] AutoDiff * Auto Eosinophil Percent 0.1 % - <=7.0 12/01 [facility] [place] AutoDiff * Auto Eosinophil Absolute 0.0 K/uL 12/01 [facility] [place] AutoDiff * Auto Basophil Percent 0.1 % - <=2.0 12/01 [facility] [place] AutoDiff * Auto Basophil Absolute 0.0 K/uL 12/01 [facility] [place] AutoDiff * Sex assigned at Male 12/01 [facility] [place] CBC WBC 9.0 K/uL 3.5 - 10.4 10/21 /2022 NA [facility] CBC RBC 4.83 M/uL 4.00 - 6.20 12/01 NA [facility] CBC HGB 14.2 gm/dL 14.0 - 18.0 12/01 NA [facility] CBC HCT 42.7 % 42.0 - 52.0 12/01 NA [facility] CBC MCV 88.4 fL 82.0 - 101.0 12/01 NA [facility] CBC MCH 29.4 pg 26.0 - 34.0 12/01 NA [facility] CBC MCHC 33.2 gm/dL 32.0 - 36.0 12/01 NA [facility] CBC RDW 15.2 % 11.0 - 15.0 12/01 H [facility] CBC PLT 127 K/uL 140 - 440 12/01 L [facility] CBC MPV 8.5 fL 7.4 - 11.4 12/01 NA [facility] CBC Sex assigned at Male 12/01 NA [facility] CBC Manual Diff Y/N SReview 12/01 NA [facility] CMP Sodium Level 143 mmol/L 136 - 145 12/01 NA [facility] CMP Potassium Level 3.8 mmol/L 3.5 - 5.1 12/01 NA [facility] CMP Chloride Level 101 mmol/L 98 - 107 12/01 NA [facility] CMP CO2/Carbon Dioxide 34.6 mmol/L 21.0 - 32.0 12/01 H [facility] CMP Anion Gap 7 mmol/L 4 - 16 12/01 NA [facility] CMP Glucose, Random 90 mg/dL 70 - 95 12/01 NA Reference ranges are based on a fasting specimen. [facility] CMP BUN 33 mg/dL 7 - 20 12/01 H [facility] CMP Creatinine 0.8 mg/dL 0.9 - 1.3 12/01 L [facility] CMP BUN/Creat Ratio 41.2 12/01 [facility] CMP Osmolality, Calculated 303 12/01 [facility] CMP Calcium Level 9.0 mg/dL 8.6 - 10.0 12/01 [facility] CMP Total Protein 6.4 gm/dL 6.4 - 8.2 12/01 [facility] CMP Albumin Level 3.7 gm/dL 3.5 - 5.0 12/01 [facility] CMP Globulin Level 2.7 gm/dL 2.0 - 4.0 12/01 [facility] CMP A/G Ratio 1.4 1.1 - 2.2 12/01 [facility] CMP ALP 61 units/L 38 - 126 12/01 [facility] [place] CMP ALT 26 units/L 10 - 40 12/01 [facility] CMP AST 16 units/L 15 - 41 12/01 [facility] CMP Bilirubin, Total 0.6 mg/dL - <=1.0 12/01 [facility] CMP GFR - Non >60 mL/min/1.73 m2 12/01 NA <60 = Renal Insufficiency , <15 = Renal Failure. This equation is not applicable to person's under 18 years of age.eGFR calculation based on the IDMO traceable four-paramete r MDRD equation. [facility] CMP GFR - >60 mL/min/1.73 m2 12/01 [facility] CMP Sex assigned at Male 12/01 [facility] PT PT - Patient 25.1 sec 11.8 - 13.8 12/01 H [facility] PT PT - INR 2.42 [...] 2.5 - 3.5 of recurrent myocardial infarction [facility] PT Sex assigned at Male 12/01 NA [facility] SReview Anisocytosis 1+ None 12/01 * [facility] SReview RBC Morphology Abnormal Normal 12/01 * [facility] SReview Sex assigned at Male 12/01 NA [facility] AutoDiff * Auto Neutrophil Percent 71.4 % 40.0 - 80.0 11/30 NA [facility] AutoDiff * Auto Neutrophil Absolute 7.3 K/uL 11/30 NA [facility] AutoDiff * Auto Lymphocyte Percent 10.6 % 18.0 - 45.0 11/30 L [facility] AutoDiff * Auto Lymphocyte Absolute 1.1 K/uL 11/30 NA [facility] AutoDiff * Auto Monocyte Percent 17.8 % 3.0 - 12.0 11/30 H [facility] AutoDiff * Auto Monocyte Absolute 1.8 K/uL 11/30 NA [facility] AutoDiff * Auto Eosinophil Percent 0.1 % - <=7.0 11/30 NA [facility] AutoDiff * Auto Eosinophil Absolute 0.0 K/uL 11/30 NA [facility] AutoDiff * Auto Basophil Percent 0.1 % - <=2.0 11/30 NA [facility] AutoDiff * Auto Basophil Absolute 0.0 K/uL 11/30 NA [facility] AutoDiff * Sex assigned at Male 11/30 NA [facility] CBC WBC 10.2 K/uL 3.5 - 10.4 11/30 NA [facility] CBC RBC 4.66 M/uL 4.00 - 6.20 11/30 NA [facility] CBC HGB 13.9 gm/dL 14.0 - 18.0 11/30 L [facility] CBC HCT 41.3 % 42.0 - 52.0 11/30 L [facility] CBC MCV 88.7 fL 82.0 - 101.0 11/30 NA [facility] CBC MCH 29.8 pg 26.0 - 34.0 11/30 NA [facility] CBC MCHC 33.5 gm/dL 32.0 - 36.0 11/30 NA [facility] CBC RDW 15.3 % 11.0 - 15.0 11/30 H [facility] CBC PLT 121 K/uL 140 - 440 11/30 L [facility] CBC MPV 7.9 fL 7.4 - 11.4 11/30 NA [facility] CBC Manual Diff Y/N SReview 11/30 NA [facility] CBC Sex assigned at Male 11/30 NA [facility] CMP Sodium Level 138 mmol/L 136 - 145 11/30 NA [facility] CMP Potassium Level 3.9 mmol/L 3.5 - 5.1 11/30 NA [facility] CMP Chloride Level 99 mmol/L 98 - 107 11/30 NA [facility] CMP CO2/Carbon Dioxide 33.80 mmol/L 21.00 - 32.00 11/30 H [facility] CMP Anion Gap 5 mmol/L 4 - 16 11/30 NA [facility] CMP Glucose, Random 97 mg/dL 70 - 95 11/30 H Reference ranges are based on a fasting specimen. [facility] CMP BUN 33 mg/dL 7 - 20 11/30 H [facility] CMP Creatinine 0.7 mg/dL 0.9 - 1.3 11/30 L [facility] CMP BUN/Creat Ratio 47.1 11/30 NA [facility] CMP Osmolality, Calculated 293 11/30 NA [facility] CMP Calcium Level 8.7 mg/dL 8.6 - 10.0 11/30 NA [facility] CMP Total Protein 6.3 gm/dL 6.4 - 8.2 11/30 L [facility] CMP Albumin Level 3.8 gm/dL 3.5 - 5.0 11/30 NA [facility] CMP Globulin Level 2.5 gm/dL 2.0 - 4.0 11/30 NA [facility] CMP A/G Ratio 1.5 1.1 - 2.2 11/30 NA [facility] CMP ALP 56 units/L 38 - 126 11/30 NA [facility] CMP ALT 21 units/L 10 - 40 11/30 NA [facility] CMP AST 17 units/L 15 - 41 11/30 NA [facility] CMP Bilirubin, Total 0.6 mg/dL - <=1.0 11/30 NA [facility] CMP GFR - Non >60 mL/min/1.73 m2 11/30 NA <60 = Renal Insufficiency , <15 = Renal Failure. This equation is not applicable to person's under 18 years of age.eGFR calculation based on the IDMO traceable four-paramete r MDRD equation. [facility] CMP GFR - >60 mL/min/1.73 m2 11/30 NA [facility] CMP Sex assigned at Male 11/30 NA [facility] PT PT - Patient 25.6 sec 11.8 - 13.8 11/30 H [facility] PT PT - INR 2.48 [...] 2.5 - 3.5 of recurrent myocardial infarction [facility] PT Sex assigned at Male 11/30 NA [facility] SReview Anisocytosis 1+ None 11/30 * [facility] SReview RBC Morphology Abnormal Normal 11/30 * [facility] SReview Sex assigned at Male 11/30 NA [facility] AutoDiff * Auto Neutrophil Percent 73.6 % 40.0 - 80.0 11/29 NA [facility] AutoDiff * Auto Neutrophil Absolute 8.8 K/uL 11/29 NA [facility] AutoDiff * Auto Lymphocyte Percent 5.5 % 18.0 - 45.0 11/29 L [facility] AutoDiff * Auto Lymphocyte Absolute 0.7 K/uL 11/29 NA [facility] AutoDiff * Auto Monocyte Percent 20.9 % 3.0 - 12.0 11/29 H [facility] AutoDiff * Auto Monocyte Absolute 2.5 K/uL 11/29 NA [facility] AutoDiff * Auto Eosinophil Percent 0.0 % - <=7.0 11/29 NA [facility] AutoDiff * Auto Eosinophil Absolute 0.0 K/uL 11/29 NA [facility] AutoDiff * Auto Basophil Percent 0.0 % - <=2.0 11/29 NA [facility] AutoDiff * Auto Basophil Absolute 0.0 K/uL 11/29 NA [facility] AutoDiff * Sex assigned at Male 11/29 NA [facility] CBC WBC 12.0 K/uL 3.5 - 10.4 11/29 H [facility] CBC RBC 4.69 M/uL 4.00 - 6.20 11/29 NA [facility] CBC HGB 13.8 gm/dL 14.0 - 18.0 11/29 L [facility] CBC HCT 42.2 % 42.0 - 52.0 11/29 NA [facility] CBC MCV 89.9 fL 82.0 - 101.0 11/29 NA [facility] CBC MCH 29.3 pg 26.0 - 34.0 11/29 NA [facility] CBC MCHC 32.6 gm/dL 32.0 - 36.0 11/29 NA [facility] CBC RDW 15.1 % 11.0 - 15.0 11/29 H [facility] CBC PLT 121 K/uL 140 - 440 11/29 L [facility] CBC MPV 8.5 fL 7.4 - 11.4 11/29 NA [facility] CBC Manual Diff Y/N SReview 11/29 NA [facility] CBC Sex assigned at Male 11/29 NA [facility] CMP Sodium Level 140 mmol/L 136 - 145 11/29 NA [facility] CMP Potassium Level 4.1 mmol/L 3.5 - 5.1 11/29 NA [facility] CMP Chloride Level 102 mmol/L 98 - 107 11/29 NA [facility] CMP CO2/Carbon Dioxide 30.5 mmol/L 21.0 - 32.0 11/29 NA [facility] CMP Anion Gap 8 mmol/L 4 - 16 11/29 NA [facility] CMP Glucose, Random 115 mg/dL 70 - 95 11/29 H Reference ranges are based on a fasting specimen. [facility] CMP BUN 27 mg/dL 7 - 20 11/29 H [facility] CMP Creatinine 0.7 mg/dL 0.9 - 1.3 11/29 L [facility] CMP BUN/Creat Ratio 38.6 11/29 NA [facility] CMP Osmolality, Calculated 296 11/29 NA [facility] CMP Calcium Level 9.0 mg/dL 8.6 - 10.0 11/29 NA [facility] CMP Total Protein 6.6 gm/dL 6.4 - 8.2 11/29 NA [facility] CMP Albumin Level 3.8 gm/dL 3.5 - 5.0 11/29 NA [facility] CMP Globulin Level 2.8 gm/dL 2.0 - 4.0 11/29 NA [facility] CMP A/G Ratio 1.4 1.1 - 2.2 11/29 NA [facility] CMP ALP 59 units/L 38 - 126 11/29 NA [facility] CMP ALT 21 units/L 10 - 40 11/29 NA [facility] CMP AST 18 units/L 15 - 41 11/29 NA [facility] CMP Bilirubin, Total 0.5 mg/dL - <=1.0 11/29 NA [facility] CMP GFR - Non >60 mL/min/1.73 m2 11/29 NA <60 = Renal Insufficiency , <15 = Renal Failure. This equation is not applicable to person's under 18 years of age.eGFR calculation based on the IDMO traceable four-paramete r MDRD equation. [facility] CMP GFR - >60 mL/min/1.73 m2 11/29 NA [facility] CMP Sex assigned at Male 11/29 NA [facility] PT PT - Patient 26.6 sec 11.8 - 13.8 11/29 H [facility] PT PT - INR 2.61 [...] 2.5 - 3.5 of recurrent myocardial infarction [facility] PT Sex assigned at Male 11/29 NA [facility] SReview Anisocytosis 1+ None 11/29 * [facility] SReview RBC Morphology Abnormal Normal 11/29 * [facility] SReview Sex assigned at Male 11/29 NA [facility] POC CG4+ Harshal VBG - pH 7.390 7.310 - 7.410 11/28 NA Device Code: LAB iSTATFacility : 0045Location: EDSerial Number: [id number] r Code: superkOperato r Name: Aditi Cornelius able Lot: [id number] [facility] POC CG4+ Harshal VBG - pCO2 46.6 mmHg 41.0 - 51.0 11/28 NA [facility] POC CG4+ Harshal VBG - pO2 45 mmHg 30 - 40 11/28 H [facility] POC CG4+ Harshal VBG - HCO3 28.2 mmol/L 23.0 - 28.0 11/28 H [facility] POC CG4+ Harshal VBG - TCO2 30 mmol/L 24 - 29 11/28 H [facility] POC CG4+ Harshal VBG - O2 Sat 80.0 % 0.0 - 75.0 11/28 H [facility] POC CG4+ Harshal VBG - BE 2 mmol/L -3 - 3 11/28 NA [facility] POC CG4+ Harshal POCT - Lactate/Lacti c Acid 0.90 mmol/L 0.50 - 1.90 11/28 NA [facility] POC CG4+ Harshal BG - Modified Bayron Test NA 11/28 NA [facility] POC CG4+ Harshal BG - Site OTHER 11/28 NA [facility] POC CG4+ Harshal Sex assigned at Male 11/28 NA [facility] BMP Sodium Level 136 mmol/L 136 - 145 11/28 NA [facility] BMP Potassium Level 3.7 mmol/L 3.5 - 5.1 11/28 NA [facility] BMP Chloride Level 100 mmol/L 98 - 107 11/28 NA [facility] BMP CO2/Carbon Dioxide 26.10 mmol/L 21.00 - 32.00 11/28 NA [facility] BMP Anion Gap 10 mmol/L 4 - 16 11/28 NA [facility] BMP Glucose, Random 105 mg/dL 70 - 95 11/28 H Reference ranges are based on a fasting specimen. [facility] BMP BUN 26 mg/dL 7 - 20 11/28 H [facility] BMP Creatinine 0.8 mg/dL 0.9 - 1.3 11/28 L [facility] BMP BUN/Creat Ratio 32.5 11/28 NA [facility] BMP Osmolality, Calculated 287 11/28 NA [facility] BMP Calcium Level 8.6 mg/dL 8.6 - 10.0 11/28 NA [facility] BMP GFR - Non >60 mL/min/1.73 m2 11/28 NA <60 = Renal Insufficiency , <15 = Renal Failure. This equation is not applicable to person's under 18 years of age.eGFR calculation based on the IDMO traceable four-paramete r MDRD equation. [facility] BMP GFR - >60 mL/min/1.73 m2 11/28 NA [facility] BMP Sex assigned at Male 11/28 NA [facility] BNPep BNP B-Natriuretic Peptide 58 pg/mL - <=100 11/28 NA [facility] BNPep Sex assigned at Male 11/28 NA [facility] CBC WBC 8.9 K/uL 3.5 - 10.4 11/28 NA [facility] CBC RBC 4.60 M/uL 4.00 - 6.20 11/28 NA [facility] CBC HGB 13.7 gm/dL 14.0 - 18.0 11/28 L [facility] CBC HCT 40.7 % 42.0 - 52.0 11/28 L [facility] CBC MCV 88.5 fL 82.0 - 101.0 11/28 NA [facility] CBC MCH 29.7 pg 26.0 - 34.0 11/28 NA [facility] CBC MCHC 33.5 gm/dL 32.0 - 36.0 11/28 NA [facility] CBC RDW 15.3 % 11.0 - 15.0 11/28 H [facility] CBC PLT 109 K/uL 140 - 440 11/28 L [facility] CBC MPV 7.9 fL 7.4 - 11.4 11/28 NA [facility] CBC Manual Diff Y/N Man Diff 11/28 NA [facility] CBC Sex assigned at Male 11/28 NA [facility] CK+MBIF CK, Total 164 units/L 32 - 230 11/28 NA [facility] CK+MBIF Sex assigned at Male 11/28 [facility] [id number] LU SARS-CoV-2 Source Nasopharyng eal 11/28 NA [facility] [id number] LU Influenza A Agn Molecular Detected Not [...] results? Y/N YAssay performed by RT-PCR [facility] [id number] LU Influenza B Agn Molecular Not Detected Not Detected 11/28 NA Assay performed by RT-PCR [facility] [id number] LU SARS-CoV-2 Molecular Not Detected Not Detected 11/28 NA Assay performed by RT-PCRThis test was performed under U.S. Food and Drug Administratio n (FDA) Emergency use Authorization (EUA). This test has been validated but the FDAs independent review of this validation is pending. [facility] [id number] LU SARS-CoV-2 First test? No 11/28 NA [facility] [id number] IGOR Health Care Worker? No 11/28 NA [facility] [id number] IGOR SARS-CoV-2 Is the Patient Hospitalized? No 11/28 NA [facility] [id number] IGOR SARS-CoV-2 Is the Patient in ICU? No 11/28 NA [facility] [id number] IGOR Patient From [facility]? Yes 11/28 NA [facility] [id number] IGOR Symptomatic per CDC? Yes 11/28 NA [facility] [id number] IGOR SARS-CoV-2 Is the Patient ? No 11/28 NA [facility] [id number] IGOR Sex assigned at Male 11/28 NA [facility] MDiff Bands % 1 % - <=6 11/28 NA [facility] MDiff Manual Neutrophil Percent 64 % 40 - 80 11/28 NA [facility] MDiff Manual Neutrophil Absolute 5.8 K/uL 11/28 NA [facility] MDiff Manual Lymphocyte Percent 6 % 18 - 45 11/28 L [facility] [place] MDiff Manual Lymphocyte Absolute 0.5 K/uL 11/28 NA [facility] [place] MDiff Manual Monocyte Percent 27 % 3 - 12 11/28 H [facility] [place] MDiff Manual Monocyte Absolute 2.4 K/uL 11/28 NA [facility] [place] MDiff Manual Eosinophil Percent 2 % - <=7 11/28 NA [facility] [place] MDiff Manual Eosinophil Absolute 0.2 K/uL 11/28 NA [facility] [place] MDiff RBC Morphology Abnormal Normal 11/28 * [facility] [place] MDiff Anisocytosis 1+ None 11/28 * [facility] [place] MDiff Polychromasia 1+ None 11/28 * [facility] [place] MDiff Sex assigned at Male 11/28 NA [facility] [place] Mg Magnesium Level 1.9 mg/dL 1.6 - 2.5 11/28 NA [facility] [place] Mg Sex assigned at Male 11/28 NA [facility] PT - Patient 32.7 sec 11.8 - 13.8 11/28 H [facility] PT PT - INR 3.41 11/28 NA [...] 2.5 - 3.5 of recurrent myocardial infarction [facility] Sex assigned at Male 11/28 NA [facility] PTT PTT - Patient 42 sec 21 - 34 11/28 [facility] PTT Sex assigned at Male 11/28 [facility] TROPHS Troponin I High Sensitivity 7 ng/L [...] testing may be helpful for interpretatio n. [facility] TROPHS Sex assigned at Male 11/28 NA [facility] C Blood C Blood Final:No growth at 5 days.Sex assigned at :Male 11/28 [facility] C Blood C Blood Final:No growth at 5 days.Sex assigned at :Male 11/28 [facility] Diagnostic Reports Report Value Date Source Chest [...] Collin Simpson on 11/30/2021 10:36 HST 11/30/2021 [place] [id number] Vw Portable PROCEDURE: CHEST RAD IOGRAPH, 1 [...] MD on 11/28/2021 05:06 HST 11/28/2021 [facility] Consultation Notes Results Value Date [...] 12/01/2021 06:58 HST Final 12/01/2021 45 [facility] Pulmonology Progress Note Patient: LEANNE JARAMILLO Age: 76 years Legal Sex: MALE : 1945 Subjective 1. Doing better overall 2. Now comfortable on room air 3. No longer have any wheezing 4. Afebrile; no leukocytosis 5. all medications reviewed Objective NOTE: This note was generated with the assistance of a voice dictation system, using the [employer] Edition. [employer] House Control Room Operator errors may very well be present [...] Normal strength, No tenderness Integumentary: Warm, Dry, [place], No skin lesions Neurologic: Alert, Oriented, Normal [...] mg/3 mL Neb Soln 3 mL, INH, [id number] Dextrose 50% Inj 50 mL Syr 25 [...] Encourage ambulation Continue DuoNeb every 6 hours [id number]-[id number] with addition to AccuPAP Continue with Breo [...] of unspecified lower extremity, I82.409) 5. Anticoagulated (longterm (current) use of anticoagulants, Z79.01) 6. Morbid [...] Chest Physiotherapy Incentive Spirometry Treatment [facility] Oxim[facility] Continuous Pulse Oximetry Respiratory Therapy Communication Order Updraft Nebulizer Treatment [id number] Male 12/01/2021 [facility] Pulmonology Consultation Patient: LEANNE JARAMILLO [...] shortness of breath. Patient is visiting from [place]. He states symptoms began 2 days ago [...] or vomiting. He apparently is visiting from [place], gotten his influenza vaccine and COVID booster [...] Normal strength, No tenderness Integumentary: Warm, Dry, [place], No skin lesions Neurologic: Alert, Oriented, Normal [...] Encourage ambulation Add DuoNeb every 6 hours [id number] with addition to AccuPAP Continue with Breo [...] of unspecified lower extremity, I82.409) 5. Anticoagulated (longterm (current) use of anticoagulants, Z79.01) 6. Morbid [...] Cap, ORAL, DAILY DuoNeb, 3 mL, INH, [id number], PRN flecainide, 50 mg, 0.5 Tab, ORAL, [...] Never. Are you ready to quit? N/A. [id number] Male 11/30/2021 [facility] Progress Note Patient: AMY JARAMILLO Age: 76 years Legal Sex: MALE : 1945 Chart is generated by International Marketing Manager, Ivon Valdes, for Dr. Rincon Date of [...] mg/3 mL Neb Soln 3 mL, INH, [id number] Dextrose 50% Inj 50 mL Syr 25 [...] of unspecified lower extremity, I82.409) 5. Anticoagulated (longterm (current) use of anticoagulants, Z79.01) 6. Morbid obesity (Morbid (severe) obesity due to excess calories, E66.01) 7. Paroxysmal atrial fibrillation (Paroxysmal atrial fibrillation, I48.0) SOB (shortness of breath) (SOB (shortness of breath), 40667) Plan: Cont breathing treatments Cont steroids started [...] and medical decision making performed by me. [id number] Male 11/30/2021 [facility] Progress Note Patient: AMY JARAMILLO [...] mg/3 mL Neb Soln 3 mL, INH, V4CziyCEom albuterol-ipratrop 3-0.5 mg/3 mL Neb Soln 3 [...] of unspecified lower extremity, I82.409) 5. Anticoagulated (longterm (current) use of anticoagulants, Z79.01) 6. Morbid obesity (Morbid (severe) obesity due to excess calories, E66.01) 7. Paroxysmal atrial fibrillation (Paroxysmal atrial fibrillation, I48.0) SOB (shortness of breath) (SOB (shortness of breath), 70278) Plan: Chest x-ray Start Azithromycin Cont breathing treatments Cont steroids Supplemental O2 as needed - goal sat 88-92 Advance care planning including the explanation and discussion of advance directives such as standard forms (with completion of such forms, when performed) by the physician or other qualified health professional; first 30 minutes, gvrw-mn-qwka with the patient, family member(s) and/or surrogate. Quality Measures Charting performed by International Marketing Manager, Ivon Valdes, for Dr. Rincon The scribe's documentation has been prepared under my direction and personally reviewed by me in its entirety. I confirm that the note above accurately reflects all work, treatment, and medical decision making performed by me. 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 Patient is visiting from [place]. He states symptoms began 2 days ago [...] HST, N/A DuoNeb: = 3 mL, INH, [id number], PRN, Wheezing, STAT, NEB AMP, 11/28/21 3:03:00 [...] History. 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 Surgical history: Triage Surgical History. [...] method Bed scale Height/Length (cm) 175.6 cm Vian Body Weight Calculated 71.008 . Oxygen saturation: [...] B Agn Molecular Not Detected Patient From [facility]? Yes SARS-CoV-2 Molecular Not Detected SARS-CoV-2 [...] treatment plan, Patient indicated understanding of instructions. [id number] Male 11/28/2021 [facility] Discharge Summaries Results Value Date [...] of unspecified lower extremity, I82.409) 5. Anticoagulated (longterm (current) use of anticoagulants, Z79.01) 6. Morbid [...] weeks prior to departing on vacation from [place] that he received his influenza vaccine with [...] other qualified health professional; first 30 minutes, pnql-yw-zeec with the patient, family member(s) and/or surrogate [...] f/u with PCP 1 week Cardiac diet [id number] Male 12/01/2021 [facility] [place] History and Physicals Results Value Date Source Admission H & P 11/28/2021 [facility] [place] History and Physical Patient: LIBAN JARAMILLO Age: [...] weeks prior to departing on vacation from [place] that he received his influenza vaccine with [...] other qualified health professional; first 30 minutes, erpa-kx-ojxt with the patient, family member(s) and/or surrogate [...] (shortness of breath) (SOB (shortness of breath), 98169) Orders: acetaminophen (acetaminophen), 650 mg, ORAL, Q6H, PRN, Pain-Mild (Scale 1-3), TAB, 11/28/21 5:00:00 HST acetaminophen (acetaminophen), 650 mg, ORAL, Q6H, PRN, Fever, TAB, 11/28/21 5:00:00 HST albuterol-ipratropium (DuoNeb), = 3 mL, INH, Q4YkorRMby, PRN, Shortness of breath, NEB AMP, 11/28/21 [...] mg, ORAL, DAILY DuoNeb, 3 mL, INH, [id number], PRN flecainide, 50 mg, 1 Tab, ORAL, [...] smoker, quit more than 30 days ago. [id number] Male 11/28/2021 [facility] Vital Signs Vital Sign Value Date Comments Source Peripheral Pulse Rate 94 bpm 12/02/2021 45 [facility] Pulse Oximetry 90 % 12/02/2021 45 [facility] Respiratory rate 18 br/min 12/02/2021 45 [facility] Systolic BP 116 mm[Hg] 12/02/2021 45 [facility] Diastolic BP 69 mm[Hg] 12/02/2021 45 [facility] Mean BP 85 mm[Hg] 12/02/2021 45 [facility] Temperature (F) 97.8 [degF] 12/02/2021 45 [facility] Peripheral Pulse Rate 81 bpm 12/01/2021 45 [facility] Pulse Oximetry 92 % 12/01/[address] [facility] Respiratory rate 18 br/min 12/01/2021 45 [facility] Systolic BP 130 mm[Hg] 12/01/2021 45 [facility] Diastolic BP 83 mm[Hg] 12/01/2021 45 [facility] Mean BP 98 mm[Hg] 12/01/2021 45 [facility] Temperature (F) 97.9 [degF] 12/01/2021 45 [facility] Oxygen FiO2 21 % 12/01/2021 45 [facility] Respiratory rate 16 br/min 12/01/2021 45 [facility] Peripheral Pulse Rate 87 bpm 12/01/2021 45 [facility] Pulse Oximetry 93 % 12/01/[address] [facility] Oxygen FiO2 21 % 12/01/2021 45 [facility] Oxygen FiO2 21 % 12/01/2021 45 [facility] Temperature (F) 97.9 [degF] 12/01/2021 45 [facility] Systolic BP 124 mm[Hg] 12/01/2021 45 [facility] Diastolic BP 78 mm[Hg] 12/01/2021 45 [facility] Mean BP 93 mm[Hg] 12/01/2021 45 [facility] Weight (kg) 116.9 kg 12/01/2021 45 [facility] Oxygen flow 1 L/min 12/01/2021 45 [facility] Oxygen flow 1 L/min 11/30/2021 45 [facility] Oxygen flow 1 L/min 11/30/2021 45 [facility] Weight (kg) 116.3 kg 11/30/2021 45 [facility] Weight (kg) 118.3 kg 11/29/2021 45 [facility] HeightLength (cm) 175.6 cm 11/28/2021 45 [facility] [place] Body Mass Index 38.2 kg/m2 11/28/2021 45 [facility] [place] Dose calculation weight (kg) 117.8 kg 11/28/2021 45 [facility] Heart Rate Monitored 94 bpm 11/28/2021 45 [facility] [place] Heart Rate Monitored 93 bpm 11/28/2021 45 [facility] Heart Rate Monitored 88 bpm 11/28/2021 45 [facility] [place] Apical Heart Rate 94 bpm 11/28/2021 45 [facility] Dose calculation weight (kg) 117.8 kg 11/28/2021 45 [facility] HeightLength (cm) 175.6 cm 11/28/2021 45 [facility] [place] Body Mass Index 38.2 kg/m2 11/28/2021 45 [facility] [place] Vian Body Weight Calculated 71.008 11/28/2021 45 [facility] Encounters Location Location Details Encounter Type Encounter Number Reason For Visit Attending Provider ADM Date DC Date Status Source 45 45 [facility] [place] [id number] CHRONIC OBSTRUCTI VE PULMONARY DISEASE (J44.1), INFLUENZA A (J10.1) Elias Kay 11/28 Active [facility] Procedures Procedure Code Date Perfomer Comments Source ROUTINE VENIPUNCTURE [id number] 12/01/2021 45 [facility] ROUTINE VENIPUNCTURE 59100 11/30/2021 45 [facility] ROUTINE VENIPUNCTURE [id number] 11/29/2021 45 [facility] ROUTINE VENIPUNCTURE 46326 11/28/2021 45 [facility] ROUTINE VENIPUNCTURE [id number] 11/28/2021 45 [facility] Plan of Care Plan of Care Date Source Extracted from:Title: Hospit alist Discharge Note Author: MD Kay Tom-Oliver Date: 12/01/21 History of Present Illness 76-year-old male with a medical history notable for DVT, 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 Patient reports 2 weeks prior to?departing on vacation?from [place]?that he received his influenza vaccine with COVID [...] other qualified health professional; first 30 minutes, gcst-qd-nwzm with the patient, family member(s) and/or surrogate FULL CODE ? Discharge Date: ?_ ? Discharge Location: ?_ ? Addendum by MD Rahul, [facility] on December 01 2021 12:57:56 HST Discharge [...] plan, Patient indicated understanding of instructions. 12/02/[address] [place] [address] Social History Social History Date Source Social History TypeResponse Smoking Status Is there a smoker in the household? No; *Do you have concerns about tobacco use in household? No; Never (less than 100 in lifetime); Never; *Are you ready to quit? N/A entered on: 11/28/21 Sex Male [address] [place] [address] Social History TypeResponse Smoking Status Is there a smoker in the household? No; *Do you have concerns about tobacco use in household? No; Never (less than 100 in lifetime); Never; *Are you ready to quit? N/A entered on: 11/28/21 Sex Male [address] [place] [address] Social History TypeResponse Smoking Status Is there a smoker in the household? No; *Do you have concerns about tobacco use in household? No; Never (less than 100 in lifetime); Never; *Are you ready to quit? N/A entered on: 11/28/21 Sex Male [address] [place] [address]
--- NOTE | 2024-03-05 19:31 | P.HPHOSP_ITS ---
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 HFpEF and CAD presents to the emergency department complaining of worsening shortness on breath over the last week associated with prostate cough and wheezing. He has chronic edema to the lower extremity and does not feel that it has been getting worse. He did not report chest pain, palpitations or dizziness. He denied any acute abdominal or genitourinary symptoms. He recently completed 2 courses of doxycycline and Ceftin + prednisone for pneumonia and RSV. In the ED, he was found to have oxygen saturation 88% on room air and currently requiring 2 L supplemental oxygen via nasal cannula. Other vital signs are unremarkable. Blood workup showed no leukocytosis. There is no lactic acidosis. Hemoglobin is 13.0 and platelets 139. INR is 2.4. There are no significant electrolyte imbalances. CO2 is 32. Renal function and LFTs are normal. Troponin is 2.9. BNP is normal. Viral testing for COVID-19, RSV and influenza is negative. Chest CT with IV contrast showed no evidence of pulmonary embolism. It did showed foci of consolidation in the lingula and bilateral lower lobes. Bilateral venous Doppler is negative for DVT. CXR showed elevated left [place] diaphragm with adjacent subsegmental atelectasis. ECG showed right bundle branch block, normal sinus rhythm (HR 76 bpm) and no obvious ischemic changes. ED tx: Albuterol, Maxipime 2 g IV, Solu-Medrol 60 mg IV Review of Systems 2 Review of Systems: All 12 systems were reviewed and normal except as noted in HPI. [facility] Medical History Hypoventilation Restrictive airway disease (HFpEF) heart failure with preserved ejection fraction CHF exacerbation Cough Paroxysmal atrial fibrillation Lymphedema of both lower extremities DEREK on CPAP Obesity (BMI 35.0-39.9 without comorbidity) COPD (chronic obstructive pulmonary disease) Varicose veins of right lower extremity with inflammation Family History Father No problems noted. Mother No problems noted. Sister No problems noted. Sister No problems noted. Son No problems noted. Daughter No problems noted. Surgical History History of appendectomy Social History Household Members: Spouse Housing: House Are you a primary patient care manager to a significant other at home: No Do you presently have visiting nurse or other home services: No Alcohol intake: current Alcohol intake frequency: holidays/special occasions only Alcohol type: beer Comment: PT USES CALL LIGHT APPROPRIATELY Patient Tobacco Use Status: Former Tobacco user Smoked in Last 30 Days: No Use of substances other than those prescribed or required for medical reasons: No Advance Directives: Yes Advance Directives on File: Yes Advance Directives Date on File: 03/05/24 Do you have a plan to hurt others: No Plan service: Yes Current occupational status: retired [employer] Allergies Allergy/AdvReac Type Severity Reaction Status Date / Time albuterol AdvReac Intermediate Palpitation Verified 03/05/24 11:50 s amoxicillin [From Augmentin] AdvReac Intermediate Nausea and Verified 03/05/24 11:50 Vomiting, dizziness clavulanic acid AdvReac Intermediate Nausea and Verified 03/05/24 11:50 [From Augmentin] Vomiting, dizziness Active Medications: Current Medications Acetaminophen (Acetaminophen 325 Mg Tablet) 975 mg PO Q6H PRN PRN Reason: Pain, Mild 1-3,fever,headache Albuterol Sulfate (Albuterol Sulfate (0.083%) 2.5 Mg/3 Ml Vial.Neb) 2.5 mg INHALE Q2H PRN PRN Reason: Shortness of Breath/Wheezing Levalbuterol HCl (Levalbuterol Hcl 1.25 Mg/3 Ml Vial.Neb) 1.25 mg INHALE Q4H SOUMYA Melatonin (Melatonin 3 Mg Tablet) 6 mg PO BEDTIME PRN PRN Reason: Insomnia Sodium Chloride (0.9 % Sodium Chloride Flush 3 Ml Syringe) 3 ml IVFLUSH QSHIFT [facility] Home Medications ?Medication ?Instructions ?Recorded ?Confirmed ?Last Taken ?Type atorvastatin 20 mg tablet 20 mg PO DAILY 12/08/19 03/05/24 03/05/24 History diltiazem HCl 120 mg 120 mg PO DAILY 12/08/19 03/05/24 03/05/24 History capsule,extended release 24 hr docusate sodium 100 mg capsule 200 mg PO DAILY 12/08/19 03/05/24 03/05/24 History sennosides 8.6 mg capsule (senna) 25.8 mg PO BEDTIME 12/08/19 03/05/24 03/05/24 History multivitamin 1 tab PO DAILY 06/15/21 03/05/24 03/05/24 History acetaminophen 500 mg tablet 1,000 mg PO Q6H PRN Back Pain 12/17/21 03/05/24 09/27/22 History potassium chloride 10 mEq 10 meq PO DAILY 10/03/22 03/05/24 03/05/24 History tablet,extended release(part/cryst) warfarin 5 mg tablet 7.5 mg PO .COMPLEX 01/13/24 02/21/24 Unknown History acetazolamide 250 mg tablet 250 mg PO DAILY 03/05/24 03/05/24 03/05/24 History azithromycin 250 mg tablet 250 mg PO MOWEFR 03/05/24 03/05/24 03/04/24 History furosemide 40 mg tablet 40 mg PO BEDTIME 03/05/24 03/05/24 03/04/24 History furosemide 40 mg tablet 80 mg PO DAILY 03/05/24 03/05/24 03/05/24 History prednisone 5 mg tablet 5 mg PO MOWEFR COPD 03/05/24 03/05/24 Unknown History warfarin 5 mg tablet 5 mg PO MOTUTHFRSA 03/05/24 03/05/24 03/05/24 History warfarin 7.5 mg tablet 7.5 mg PO SUWE 03/05/24 03/05/24 03/04/24 History Physical Exam 2 Vital Signs and Narrative: Vital Signs: Last Vital Signs Temp 98.3 F 03/05/24 18:50 Pulse 88 03/05/24 18:50 Resp 18 03/05/24 18:50 BP 123/57 L 03/05/24 18:50 Pulse Ox 91 L 03/05/24 18:50 O2 Del Method Nasal Cannula 03/05/24 18:50 O2 Flow Rate 3 03/05/24 18:50 BMI result Body Mass Index 29.0 Constitutional - Awake and Alert, No apparent distress. Pleasant. Cooperative. Nasal cannula in place. Afebrile. Looks comfortable. HEENT - PERRL, EOMI Heart - RRR, (+) murmurs. Lungs - Normal lung expansion, Normal respiratory effort, No respiratory distress. Bibasilar crackles and rhonchi. No wheezing. Abdomen - NT / ND; +BS; No rebound or guarding Extremities - bilateral nonpitting edema and dark discoloration to the lower extremities Musculoskeletal - Normal inspection, normal ROM Skin - Warm/Dry. No pallor. No jaundice. Neurological - Alert & oriented x3. No focal weakness grossly noted. Normal speech. Psychological - Appropriate affect Results Labs 03/05/24 12:36 03/05/24 12:36 Labs: Laboratory Results - last 24 hr 03/05/24 12:36 MCV 93.6 MCH 29.8 MCHC 31.9 RDW 15.3 Plt Count 139 L MPV 9.6 Immature Gran % (Auto) 0.6 H Neut % (Auto) 59.1 Lymph % (Auto) 17.9 L [place] % (Auto) 21.4 H Eos % (Auto) 0.7 Baso % (Auto) 0.3 Lymph # (Auto) 1.2 [place] # (Auto) 1.5 H Eos # (Auto) 0.1 Baso # (Auto) 0.0 Abs Immat Gran (auto) 0.04 H Absolute Neuts (auto) 4.0 Absolute Nucleated RBC 0.000 Nucleated RBC % (auto) 0.0 Smear Tech's Comments VERIFIED PT 27.8 H D INR 2.4 H Anion Gap 11 L Estim Creat Clear Calc 81.3 Estimated GFR > 60 Random Glucose 81 Lactic Acid 1.0 Calcium 9.0 Magnesium 2.0 Total Bilirubin 0.5 AST 22 ALT 22 Alkaline Phosphatase 74 Troponin I High Sens 2.9 B-Natriuretic Peptide 24 Total Protein 7.2 Albumin 3.7 Lipase 34 Influenza Type A (PCR) NEGATIVE Influenza Type B (PCR) NEGATIVE RSV RNA Qual (PCR) NEGATIVE SARS-CoV-2 RNA (RT-PCR) NEGATIVE Imaging Radiologist's Impressions: Impressions Chest X-Ray 03/05/24 11:51 IMPRESSION: Elevated left hemidiaphragm with adjacent subsegmental atelectasis. No acute cardiopulmonary abnormality. Electronically signed by: Waldemar Pina MD 03/05/2024 12:16 PM [facility] Venous Duplex 01/23/25 16:17 IMPRESSION: No evidence of deep venous thrombosis involving the bilateral lower extremities. Electronically signed by: Kev Johnson MD 03/05/2024 04:48 PM [facility] Assessment and Plan (1) Acute hypoxic on chronic hypercapnic respiratory failure: Status: Acute (2) Multifocal pneumonia: Status: Acute Plan Jay Gonzales is a 78 y/o man admitted with: * Hypoxic respiratory failure (acute on chronic) secondary to bilateral pneumonia in the setting of underlying DEREK and COPD (failed outpatient tx). Telemetry. Pulse oximetry. Supplemental O2 to keep O2 sats 90-92%. Continue empiric IV antibiotic therapy with cefepime, bronchodilator therapy and IV steroids. Nocturnal CPAP. * History of atrial fibrillation, currently normal sinus rhythm. Continue warfarin, flecainide and diltiazem. He takes 7.5 mg p.o. on Sundays and Saturday and 5 mg p.o. other days of the week. INR daily (INR currently is therapeutic). * Hyperlipidemia. Continue statin. * Chronic lower extremity edema. Continue furosemide. * HFpEF. BNP normal. Continue furosemide. * DEREK. Nocturnal CPAP. DVT prophylaxis: Warfarin Code status: Full Patient will need hospitalization for at least 2 midnights for hypoxic respiratory failure secondary to pneumonia that failed outpatient treatment. Patient will need therapy with empiric IV antibiotic therapy, supplemental oxygen, bronchodilator therapy and IV steroids. Quality Stroke Does the patient have a stroke diagnosis?: No VTE Prior VTE?: No VTE Risk Level:: Medical - moderate - high VTE Device Contraindication: Treatment Not Indicated VTE Drug Contraindication: N/A - Med Ordered
[2024-03-05] MEDS: cefEPime HCl/D5W 2 GM/50 ML PIGGYBACK IV (19:33)
--- NOTE | 2024-03-05 19:40 | PHA.MEDREC ---
Pharmacy Consult ? Medication Reconciliation Pharmacy has completed the medication reconciliation. Spoke to patient and at bedside to confirm med list. had a list of patients medications. Patient confirmed Warfarin 7.5 mg on Sundays and Wednesdays and Warfarin 5 mg on Saturday,Saturday,Saturday and Saturday., Azithromycin 250 mg every Sat, sat, and Saturday, Prednisone 5 mg is every Saturday, sat, and Fridays..
--- NOTE | 2024-03-05 19:45 | PHA.MEDREC ---
Addendum entered by Karla Kam RPh 03/05/24 20:06: [facility] REVIEWED Original Note: Pharmacy Consult ? Medication Reconciliation Pharmacy has completed the medication reconciliation. Spoke to patient and at bedside to confirm med list. had a list of patients medications. Patient confirmed Warfarin 7.5 mg on Sundays and Wednesdays and Warfarin 5 mg on Saturday,Saturday,Saturday and Saturday., Azithromycin 250 mg every Sat, sat, and Saturday, Prednisone 5 mg is every Saturday, sat, and Fridays. Patient states he uses [facility] delivery.
--- NOTE | 2024-03-05 21:03 | MHC.EDTECH ---
pt moved to ed room 6, changed into hospital attire, put on environmental monitoring specialist, vitals taken, calm and comfortable.
[2024-03-05] MEDS: Furosemide 40 MG TABLET PO (22:57)
[2024-03-05] MEDS: Sennosides 8.6 MG TABLET 25.8 MG PO (22:59)
[2024-03-05] MEDS: Flecainide Acetate 50 MG TABLET 100 MG PO (22:59)
[2024-03-05] MEDS: levalbuterol HCL 1.25 MG/3 ML VIAL.NEB INHALE ×2 (23:56)
[2024-03-06] VITALS (16 sets, daily range): BP systolic 106–137; BP diastolic 51–72; PULSE 83–104; RESP 16–27; TEMP 36.1–36.9; O2SAT 90–97
[2024-03-06] MEDS: Warfarin Sodium 5 MG TABLET PO ×2 (01:33→18:17)
[2024-03-06] MEDS: levalbuterol HCL 1.25 MG/3 ML VIAL.NEB INHALE ×5 (03:19→21:08)
[2024-03-06] MEDS: cefEPime HCl/D5W 2 GM/50 ML PIGGYBACK IV ×3 (04:04→20:40)
[2024-03-06 05:08] LABS: MANUAL DIFF FLAG NO
[2024-03-06 05:11] LABS: Hematocrit 41.2 % (42.0-52.0); Hemoglobin 12.8 g/dl (14.0-18.0); Imm Gran Abs Auto 0.04 X10*3/uL (0.00-0.03); Imm Gran Pct Auto 0.7 % (0.0-0.4); Lymphocytes Absolute Auto 0.5 X10*3/uL (1.2-4.9); Lymphocytes Percent Auto 8.1 % (20-40); Mean Corpuscular HGB Conc 31.1 g/dl (31.0-36.0); Mean Corpuscular Hemoglobin 28.8 pg (27.0-33.0); Mean Corpuscular Volume 92.6 fL (80.0-98.0); Mean Platelet Volume 9.9 fL (9.4-12.4); Monocytes Absolute Auto 0.1 X10*3/uL (0.1-1.2); Monocytes Percent Auto 1.4 % (2-11); Neutrophils Absolute Auto 5.1 x10*3/uL (2.0-8.3); Neutrophils Percent Auto 89.8 % (45-73); Platelet Count 133 X10*3/uL (160-400); Red Blood Count 4.45 X10*6/uL (4.60-5.80); White Blood Count 5.7 X10*3/uL (4.8-10.8)
[2024-03-06 05:18] LABS: INTERNATIONAL NORM RATIO 2.3 (0.9-1.1); Prothrombin Time 27.3 SEC (10.9-12.4)
[2024-03-06 05:30] LABS: Anion Gap 12 (12-20); Blood Urea Nitrogen 25 mg/dL (9-16); Calcium 8.8 mg/dL (8.4-10.2); Carbon Dioxide 27 mmol/L (22-29); Chloride 107 mmol/L (96-108); Creatinine Clr Calc Pharmacy 91.6; Estimated Glomerular Filt Rate > 60; Glucose Random 147 mg/dL (60-115); Magnesium 2.1 mg/dL (1.6-2.6); Potassium 3.9 mmol/L (3.3-5.1); Sodium 142 mmol/L (135-145)
[2024-03-06] MEDS: Fluticasone/Vilanterol 100/25 BLST.W.DEV 1 PUFF INHALE (07:53)
[2024-03-06] MEDS: Atorvastatin Calcium 20 MG TABLET PO (08:03)
[2024-03-06] MEDS: dilTIAZem HCL CD 120 MG CAP.ER.DEG PO (08:03)
[2024-03-06] MEDS: 0.9 % Sodium Chloride Flush 3 ML SYRINGE IVFLUSH ×3 (08:03→20:41)
[2024-03-06] MEDS: acetaZOLAMIDE 250 MG TABLET PO (08:03)
[2024-03-06] MEDS: Flecainide Acetate 50 MG TABLET 100 MG PO ×2 (08:04→20:41)
[2024-03-06] MEDS: Docusate Sodium 100 MG CAPSULE 200 MG PO (08:04)
[2024-03-06] MEDS: Potassium Chloride ER 10 MEQ TABLET.ER PO (08:05)
[2024-03-06] MEDS: methylPREDNISolone Sod Succ 40 MG/ML VIAL IVPUSH ×2 (08:05→20:39)
[2024-03-06] MEDS: Furosemide 40 MG TABLET 80 MG PO (08:05)
[2024-03-06] MEDS: Multivitamin TABLET 1 TAB PO (08:05)
--- NOTE | 2024-03-06 09:54 | MHC.CM.PN ---
CM met with Patient at bedside, in the ED, and addressed IMM with him; original was given to Patient and a copy has been placed on the chart. Patient lives in a house with his /HCP and his home O2 and CPAP are supplied through [facility]. Home/resume said services is the goal and CM has initiated and will follow for dc planning. PCP is Dr. Valdez.
--- NOTE | 2024-03-06 14:18 | HO.PM.IMPN ---
Subjective Subjective Date of Service: 03/06/24 Interval History: Seen and examined this morning Follow-up for pneumonia Reporting productive cough Review of Systems Review of Systems: Yes all other systems are reviewed and are negative Constitutional Constitutional: Denies chills and Denies fever(s) Cardiovascular Cardiovascular: Reports dyspnea Respiratory Respiratory: Reports cough, Denies hemoptysis and Reports dyspnea Physical Exam Vital Signs: Vital Signs: Last Vital Signs Temp 98.4 F 03/06/24 12:41 Pulse 91 03/06/24 12:41 Resp 27 H 03/06/24 12:41 BP 106/55 L 03/06/24 12:41 Pulse Ox 93 03/06/24 12:41 O2 Del Method Nasal Cannula 03/06/24 12:41 O2 Flow Rate 4 03/06/24 12:41 Oxygen Flow Rate 4 03/05/24 21:13 BMI result Body Mass Index 29.0 Const: General: cooperative, alert, awake and Physically active Nutritional Appearance: overweight Orientation/consciousness: patient oriented x3 Resp: Other: no wheeze Effort & Inspection: normal respiratory effort, able to speak in complete sentences, no respiratory distress and no use of accessory muscles Cardio: Rate: regular rate GI: Palpation (GI): Soft to palpation and nontender Neuro: General: patient oriented x3 and moves all extremities Extrem: Other: b/l venous stasis skin changes; b/l leg edema Objective Data Active Medications Acetaminophen (Acetaminophen 325 Mg Tablet) 975 mg PO Q6H PRN PRN Reason: Pain, Mild 1-3,fever,headache Acetazolamide (Acetazolamide 250 Mg Tablet) 250 mg PO DAILY [facility] Last Admin: 03/06/24 08:03 Dose: 250 mg Documented By: LEIGH Atorvastatin Calcium (Atorvastatin Calcium 20 Mg Tablet) 20 mg PO DAILY [facility] Last Admin: 03/06/24 08:03 Dose: 20 mg Documented By: LEIGH Diltiazem HCl (Diltiazem Hcl Cd 120 Mg Cap.Er.Deg) 120 mg PO DAILY [facility]; Protocol Last Admin: 03/06/24 08:03 Dose: 120 mg Documented By: LEIGH Docusate Sodium (Docusate Sodium 100 Mg Capsule) 200 mg PO DAILY [facility] Last Admin: 03/06/24 08:04 Dose: 200 mg Documented By: LEIGH Flecainide Acetate (Flecainide Acetate 50 Mg Tablet) 100 mg PO Q12H [facility] Last Admin: 03/06/24 08:04 Dose: 100 mg Documented By: LEIGH Fluticasone/Vilanterol (Fluticasone/Vilanterol 100/ Blst.W.Dev) 1 puff INHALE RDAILY [facility] Last Admin: 03/06/24 07:53 Dose: 1 puff Documented By: VIKASH Furosemide (Furosemide 40 Mg Tablet) 40 mg PO DAILY@1700 [facility]; Protocol Last Admin: 03/05/24 22:57 Dose: 40 mg Documented By: DEBBIE Furosemide (Furosemide 40 Mg Tablet) 80 mg PO DAILY [facility]; Protocol Last Admin: 03/06/24 08:05 Dose: 80 mg Documented By: LEIGH Cefepime HCl (Maxipime) 2 gm in 50 mls @ 100 mls/hr IV Q8H [facility] Last Admin: 03/06/24 11:44 Dose: 100 mls/hr Documented By: LEIGH Levalbuterol HCl (Levalbuterol Hcl 1.25 Mg/3 Ml Vial.Neb) 1.25 mg INHALE RQ4H [facility] Last Admin: 03/06/24 12:23 Dose: 1.25 mg Documented By: VIKASH Levalbuterol HCl (Levalbuterol Hcl 1.25 Mg/3 Ml Vial.Neb) 1.25 mg INHALE Q2H PRN PRN Reason: Wheezing Melatonin (Melatonin 3 Mg Tablet) 6 mg PO BEDTIME PRN PRN Reason: Insomnia Methylprednisolone Sodium Succinate (Methylprednisolone Sod Succ 40 Mg/Ml Vial) 40 mg IVPUSH BID [facility] Last Admin: 03/06/24 08:05 Dose: 40 mg Documented By: LEIGH Multivitamins/Vitamin C (Multivitamin Tablet) 1 tab PO DAILY [facility] Last Admin: 03/06/24 08:05 Dose: 1 tab Documented By: LEIGH Potassium Chloride (Potassium Chloride Er 10 Meq Tablet.Er) 10 meq PO DAILY [facility] Last Admin: 03/06/24 08:05 Dose: 10 meq Documented By: LEIGH Senna (Sennosides 8.6 Mg Tablet) 25.8 mg PO BEDTIME [facility] Last Admin: 01/23/25 22:59 Dose: 25.8 mg Documented By: DEBBIE Sodium Chloride (0.9 % Sodium Chloride Flush 3 Ml Syringe) 3 ml IVFLUSH QSHIFT [facility] Last Admin: 03/06/24 08:03 Dose: 3 ml Documented By: LIEGH Warfarin Sodium (Warfarin Sodium 7.5 Mg Tablet) 7.5 mg PO SuWe@1800 [facility] Warfarin Sodium (Warfarin Sodium 5 Mg Tablet) 5 mg PO MoTuThFrSa@1800 [facility] Last Admin: 03/06/24 01:33 Dose: 5 mg Documented By: DEBBIE Labs 03/06/24 04:36 03/06/24 04:36 Labs: Laboratory Results - last 24 hr 03/05/24 03/06/24 12:36 04:36 MCV 92.6 MCH 28.8 MCHC 31.1 RDW 15.0 Plt Count 133 L MPV 9.9 Immature Gran % (Auto) 0.7 H Neut % (Auto) 89.8 H Lymph % (Auto) 8.1 L Mcdowell % (Auto) 1.4 L Eos % (Auto) 0.0 Baso % (Auto) 0.0 Lymph # (Auto) 0.5 L Mcdowell # (Auto) 0.1 Eos # (Auto) 0.0 Baso # (Auto) 0.0 Abs Immat Gran (auto) 0.04 H Absolute Neuts (auto) 5.1 Absolute Nucleated RBC 0.000 Nucleated RBC % (auto) 0.0 PT 27.3 H INR 2.3 H Anion Gap 12 Estim Creat Clear Calc 91.6 Estimated GFR > 60 Random Glucose 147 H Calcium 8.8 Magnesium 2.0 2.1 Troponin I High Sens 2.9 Hold Red Top See Note Assessment and Plan (1) Acute hypoxic on chronic hypercapnic respiratory failure: Status: Acute (2) Multifocal pneumonia: Status: Acute Plan This is a 78 y/o male with history of COPD on as needed supplemental oxygen, atrial fibrillation on Coumadin, HFpEF, restrictive lung disease, DEREK on CPAP recently treated for RSV/COPD and pneumonia, completing 10 days of doxycycline and Ceftin who presents to the emergency department with shortness of breath and productive cough acute on chronic hypoxic respiratory failure secondary to bilateral pneumonia in the setting of underlying DEREK, COPD, restrictive lung disease with recent RSV infection Supplemental O2 to keep O2 sats 90-92%. Continue empiric IV antibiotic therapy with cefepime, bronchodilator therapy and IV steroids. Nocturnal CPAP. Blood cultures pending Paroxysmal atrial fibrillation, currently normal sinus rhythm. Continue warfarin, flecainide and diltiazem INR daily, currently 2.3 Hyperlipidemia. Continue statin. HFpEF with chronic lower extremity edema BNP normal Continue furosemide, diamox DEREK. Nocturnal CPAP. DVT prophylaxis: Warfarin Code status: Full Requires ongoing inpatient stay for hypoxic respiratory failure secondary to pneumonia that failed outpatient treatment. Patient will need therapy with empiric IV antibiotic therapy, supplemental oxygen, bronchodilator therapy and IV steroids. Quality Stroke Does the patient have a stroke diagnosis?: No VTE Prior VTE?: No VTE Risk Level:: Medical - moderate - high VTE Device Contraindication: Treatment Not Indicated VTE Drug Contraindication: N/A - Med Ordered
[2024-03-06] MEDS: Furosemide 40 MG TABLET PO (17:16)
[2024-03-06] MEDS: guaiFENesin 100 MG/5 ML 5 ML LIQUID PO (20:40)
[2024-03-06] MEDS: Sennosides 8.6 MG TABLET 25.8 MG PO (20:40)
[2024-03-07] VITALS (11 sets, daily range): BP systolic 111–126; BP diastolic 59–75; PULSE 83–112; RESP 16–21; TEMP 36–36.6; O2SAT 80–97
[2024-03-07] MEDS: cefEPime HCl/D5W 2 GM/50 ML PIGGYBACK IV ×3 (05:02→18:12)
[2024-03-07] MEDS: Fluticasone/Vilanterol 100/25 BLST.W.DEV 1 PUFF INHALE (07:49)
[2024-03-07] MEDS: levalbuterol HCL 1.25 MG/3 ML VIAL.NEB INHALE ×4 (07:49→20:03)
[2024-03-07] MEDS: 0.9 % Sodium Chloride Flush 3 ML SYRINGE IVFLUSH ×3 (09:49→20:36)
[2024-03-07] MEDS: methylPREDNISolone Sod Succ 40 MG/ML VIAL IVPUSH ×2 (09:50→20:36)
[2024-03-07] MEDS: dilTIAZem HCL CD 120 MG CAP.ER.DEG PO (09:52)
[2024-03-07] MEDS: Atorvastatin Calcium 20 MG TABLET PO (09:52)
[2024-03-07] MEDS: Multivitamin TABLET 1 TAB PO (09:52)
[2024-03-07] MEDS: acetaZOLAMIDE 250 MG TABLET PO (09:53)
[2024-03-07] MEDS: Potassium Chloride ER 10 MEQ TABLET.ER PO (09:53)
[2024-03-07] MEDS: Docusate Sodium 100 MG CAPSULE 200 MG PO (09:54)
[2024-03-07] MEDS: Furosemide 40 MG TABLET 80 MG PO (09:54)
[2024-03-07] MEDS: Flecainide Acetate 50 MG TABLET 100 MG PO ×2 (09:54→20:36)
[2024-03-07 10:42] LABS: Prothrombin Time 34.7 SEC (10.9-12.4)
--- NOTE | 2024-03-07 13:34 | HO.PM.IMPN ---
Subjective Subjective Date of Service: 03/07/24 Interval History: Seen and examined this morning Follow-up for pneumonia/COPD exacerbation Reporting persistent shortness of breath, dry cough but overall beginning to improve. Review of Systems Review of Systems: Yes all other systems are reviewed and are negative Constitutional Constitutional: Denies chills and Denies fever(s) Physical Exam Vital Signs: Vital Signs: Last Vital Signs Temp 97.6 F 03/07/24 11:15 Pulse 112 H 03/07/24 11:38 Resp 20 03/07/24 11:38 BP 120/70 03/07/24 11:15 Pulse Ox 93 03/07/24 11:15 O2 Del Method Nasal Cannula 03/07/24 11:15 O2 Flow Rate 2 03/07/24 11:15 Oxygen Flow Rate 4 03/05/24 21:13 BMI result Body Mass Index 29.0 Const: General: cooperative, alert, awake and Physically active Nutritional Appearance: overweight Orientation/consciousness: patient oriented x3 Resp: Other: no wheeze; diminished breath sounds, decreased air entry Effort & Inspection: normal respiratory effort, able to speak in complete sentences, no respiratory distress and no use of accessory muscles Cardio: Rate: regular rate GI: Palpation (GI): Soft to palpation and nontender Neuro: General: patient oriented x3 and moves all extremities Extrem: Other: b/l venous stasis skin changes; b/l leg edema Objective Data Active Medications Acetaminophen (Acetaminophen 325 Mg Tablet) 975 mg PO Q6H PRN PRN Reason: Pain, Mild 1-3,fever,headache Acetazolamide (Acetazolamide 250 Mg Tablet) 250 mg PO DAILY [facility] Last Admin: 03/07/24 09:53 Dose: 250 mg Documented By: SNEHAL Atorvastatin Calcium (Atorvastatin Calcium 20 Mg Tablet) 20 mg PO DAILY [facility] Last Admin: 03/07/24 09:52 Dose: 20 mg Documented By: SNEHAL Diltiazem HCl (Diltiazem Hcl Cd 120 Mg Cap.Er.Deg) 120 mg PO DAILY [facility]; Protocol Last Admin: 03/07/24 09:52 Dose: 120 mg Documented By: SNEHAL Docusate Sodium (Docusate Sodium 100 Mg Capsule) 200 mg PO DAILY [facility] Last Admin: 03/07/24 09:54 Dose: 200 mg Documented By: SNEHAL Flecainide Acetate (Flecainide Acetate 50 Mg Tablet) 100 mg PO Q12H [facility] Last Admin: 03/07/24 09:54 Dose: 100 mg Documented By: SNEHAL Fluticasone/Vilanterol (Fluticasone/Vilanterol Blst.W.Dev) 1 puff INHALE RDAILY [facility] Last Admin: 03/07/24 07:49 Dose: 1 puff Documented By: VERENA Furosemide (Furosemide 40 Mg Tablet) 40 mg PO DAILY@1700 [facility]; Protocol Last Admin: 03/06/24 17:16 Dose: 40 mg Documented By: MOJGAN Furosemide (Furosemide 40 Mg Tablet) 80 mg PO DAILY [facility]; Protocol Last Admin: 03/07/24 09:54 Dose: 80 mg Documented By: SNEHAL Guaifenesin (Guaifenesin 100 Mg/5 Ml 5 Ml Liquid) 5 ml PO Q6H PRN PRN Reason: Cough Last Admin: 03/06/24 20:40 Dose: 5 ml Documented By: RUI Cefepime HCl (Maxipime) 2 gm in 50 mls @ 100 mls/hr IV Q8H [facility] Last Infusion: 03/07/24 05:58 Dose: Infused Documented By: RUI Levalbuterol HCl (Levalbuterol Hcl 1.25 Mg/3 Ml Vial.Neb) 1.25 mg INHALE RQ4H [facility] Last Admin: 03/07/24 11:38 Dose: 1.25 mg Documented By: VERENA Levalbuterol HCl (Levalbuterol Hcl 1.25 Mg/3 Ml Vial.Neb) 1.25 mg INHALE Q2H PRN PRN Reason: Wheezing Melatonin (Melatonin 3 Mg Tablet) 6 mg PO BEDTIME PRN PRN Reason: Insomnia Methylprednisolone Sodium Succinate (Methylprednisolone Sod Succ 40 Mg/Ml Vial) 40 mg IVPUSH BID [facility] Last Admin: 03/07/24 09:50 Dose: 40 mg Documented By: SNEHAL Multivitamins/Vitamin C (Multivitamin Tablet) 1 tab PO DAILY [facility] Last Admin: 03/07/24 09:52 Dose: 1 tab Documented By: SNEHAL Potassium Chloride (Potassium Chloride Er 10 Meq Tablet.Er) 10 meq PO DAILY [facility] Last Admin: 03/07/24 09:53 Dose: 10 meq Documented By: SNEHAL Senna (Sennosides 8.6 Mg Tablet) 25.8 mg PO BEDTIME [facility] Last Admin: 03/06/24 20:40 Dose: 25.8 mg Documented By: RUI Sodium Chloride (0.9 % Sodium Chloride Flush 3 Ml Syringe) 3 ml IVFLUSH QSHIFT [facility] Last Admin: 03/07/24 09:49 Dose: 3 ml Documented By: SNEHAL Warfarin Sodium (Warfarin Sodium 7.5 Mg Tablet) 7.5 mg PO SuWe@1800 [facility] Warfarin Sodium (Warfarin Sodium 5 Mg Tablet) 5 mg PO MoTuThFrSa@1800 [facility] Last Admin: 03/06/24 18:17 Dose: 5 mg Documented By: MOJGAN Labs 03/06/24 04:36 03/06/24 04:36 Labs: Laboratory Results - last 24 hr 03/07/24 09:29 Hold Purple Top SEE NOTE PT 34.7 H D INR 3.0 H Microbiology Microbiology Results: Microbiology 03/05/24 15:49 Blood Culture - Preliminary Blood - Venous No growth after 24 hours. 03/05/24 12:36 Blood Culture - Preliminary Blood - Venous No growth after 24 hours. Assessment and Plan (1) Acute hypoxic on chronic hypercapnic respiratory failure: Status: Acute (2) Multifocal pneumonia: Status: Acute Plan This is a 78 y/o male with history of COPD on as needed supplemental oxygen, atrial fibrillation on Coumadin, HFpEF, restrictive lung disease, DEREK on CPAP recently treated for RSV/COPD and pneumonia, completing 10 days of doxycycline and Ceftin who presents to the emergency department with shortness of breath and productive cough acute on chronic hypoxic respiratory failure secondary to bilateral pneumonia in the setting of underlying DEREK, COPD, restrictive lung disease with recent RSV infection Supplemental O2 to keep O2 sats 90-92%. (has prn o2 at baseline) Continue empiric IV antibiotic therapy with cefepime, bronchodilator therapy and IV steroids. Nocturnal CPAP. Blood cultures pending blood cultures negative to date Paroxysmal atrial fibrillation, Continue warfarin, flecainide and diltiazem INR daily, currently 3.0 Hyperlipidemia. Continue statin. HFpEF with chronic lower extremity edema BNP normal Continue furosemide, diamox DEREK. Nocturnal CPAP. DVT prophylaxis: Warfarin Code status: Full Requires ongoing inpatient stay for hypoxic respiratory failure secondary to pneumonia that failed outpatient treatment. Patient will need therapy with empiric IV antibiotic therapy, supplemental oxygen, bronchodilator therapy and IV steroids. Quality Stroke Does the patient have a stroke diagnosis?: No VTE Prior VTE?: No VTE Risk Level:: Medical - moderate - high VTE Device Contraindication: Treatment Not Indicated VTE Drug Contraindication: N/A - Med Ordered
[2024-03-07] MEDS: Furosemide 40 MG TABLET PO (18:10)
[2024-03-07] MEDS: Warfarin Sodium 5 MG TABLET PO (18:39)
[2024-03-07] MEDS: Sennosides 8.6 MG TABLET 25.8 MG PO (20:36)
[2024-03-08 00:42] VITALS: PULSE 82; RESP 25
[2024-03-08 03:46] VITALS: BP 124/62; PULSE 79; RESP 18; TEMP 36.7; O2SAT 91
[2024-03-08] MEDS: cefEPime HCl/D5W 2 GM/50 ML PIGGYBACK IV (05:24)
[2024-03-08 07:14] VITALS: BP 121/70; PULSE 75; RESP 20; TEMP 36.1; O2SAT 94
[2024-03-08 08:11] LABS: INTERNATIONAL NORM RATIO 3.8 (0.9-1.1); Prothrombin Time 44.6 SEC (10.9-12.4)
[2024-03-08] MEDS: levalbuterol HCL 1.25 MG/3 ML VIAL.NEB INHALE ×2 (08:33→12:47)
[2024-03-08] MEDS: Fluticasone/Vilanterol 100/25 BLST.W.DEV 1 PUFF INHALE (08:33)
[2024-03-08 08:37] VITALS: PULSE 85; RESP 16
[2024-03-08] MEDS: Docusate Sodium 100 MG CAPSULE 200 MG PO (09:15)
[2024-03-08] MEDS: Potassium Chloride ER 10 MEQ TABLET.ER PO (09:15)
[2024-03-08] MEDS: Flecainide Acetate 50 MG TABLET 100 MG PO (09:15)
[2024-03-08] MEDS: Multivitamin TABLET 1 TAB PO (09:15)
[2024-03-08] MEDS: dilTIAZem HCL CD 120 MG CAP.ER.DEG PO (09:15)
[2024-03-08] MEDS: Furosemide 40 MG TABLET 80 MG PO (09:15)
[2024-03-08] MEDS: acetaZOLAMIDE 250 MG TABLET PO (09:15)
[2024-03-08] MEDS: 0.9 % Sodium Chloride Flush 3 ML SYRINGE IVFLUSH (09:16)
[2024-03-08] MEDS: methylPREDNISolone Sod Succ 40 MG/ML VIAL IVPUSH (09:16)
[2024-03-08] MEDS: Atorvastatin Calcium 20 MG TABLET PO (09:23)
--- NOTE | 2024-03-08 10:43 | PM.DS ---
DS: Providers Provider Date of Service: 03/08/24 Date of admission: 03/05/24 19:26 Date of discharge: 03/08/24 Primary care physician: Evelyn Valdez MD Attending physician on discharge: [facility] Discharging clinician: Maira Barriga DS: Diagnosis Discharge Diagnosis (1) Acute hypoxic on chronic hypercapnic respiratory failure: Status: Acute (2) Multifocal pneumonia: Status: Acute DS: Summary Hospital Course Hospital Course: From H&P on the day of admission Jay Gonzales is a very pleasant 78 years old man with past medical history significant for DEREK on CPAP, pneumonia, COPD on home O2 as needed, atrial fibrillation + 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 HFpEF and CAD presents to the emergency department complaining of worsening shortness on breath over the last week associated with prostate cough and wheezing. He has chronic edema to the lower extremity and does not feel that it has been getting worse. He did not report chest pain, palpitations or dizziness. He denied any acute abdominal or genitourinary symptoms. He recently completed 2 courses of doxycycline and Ceftin + prednisone for pneumonia and RSV. In the ED, he was found to have oxygen saturation 88% on room air and currently requiring 2 L supplemental oxygen via nasal cannula. Other vital signs are unremarkable. Blood workup showed no leukocytosis. There is no lactic acidosis. Hemoglobin is 13.0 and platelets 139. INR is 2.4. There are no significant electrolyte imbalances. CO2 is 32. Renal function and LFTs are normal. Troponin is 2.9. BNP is normal. Viral testing for COVID-19, RSV and influenza is negative. Chest CT with IV contrast showed no evidence of pulmonary embolism. It did showed foci of consolidation in the lingula and bilateral lower lobes. Bilateral venous Doppler is negative for DVT. CXR showed elevated left chelsea diaphragm with adjacent subsegmental atelectasis. ECG showed right bundle branch block, normal sinus rhythm (HR 76 bpm) and no obvious ischemic changes. ED tx: Albuterol, Maxipime 2 g IV, Solu-Medrol 60 mg IV acute on chronic hypoxic respiratory failure secondary to bilateral pneumonia in the setting of underlying DEREK, COPD, restrictive lung disease with recent RSV infection has prn o2 at baseline, treated with IV antibiotics, bronchodilator therapy and IV steroids. continued on Nocturnal CPAP. blood cultures negative to date. breathing and cough have improved significantly, he is able to ambulate without shortness of breath and feels ready to be discharged home. he will be discharged to complete a course of steroids and antibiotics. continue on all other baseline medication Time Attestation Discharge Coordination Time (in mins): 36 Quality: Safe Use of Opioids Does Pt have an Active Cancer Diagnosis on the Problem List?: No Quality: Stroke Does the patient have a stroke diagnosis?: No Physical Exam Vital Signs: Vital Signs: Last Vital Signs Temp 97.0 F 03/08/24 07:14 Pulse 85 03/08/24 08:37 Resp 16 03/08/24 08:37 BP 121/70 03/08/24 07:14 Pulse Ox 94 03/08/24 07:14 O2 Del Method Nasal Cannula 03/08/24 07:14 O2 Flow Rate 3 03/08/24 07:14 Oxygen Flow Rate 4 03/05/24 21:13 BMI result Body Mass Index 29.0 Const: General: cooperative, alert, awake and Physically active Nutritional Appearance: overweight Orientation/consciousness: patient oriented x3 Resp: Effort & Inspection: normal respiratory effort, able to speak in complete sentences, no respiratory distress and no use of accessory muscles Cardio: Rate: regular rate GI: Palpation (GI): Soft to palpation and nontender Neuro: General: patient oriented x3 and moves all extremities Extrem: Other: b/l venous stasis skin changes; b/l leg edema DS: Data Data Completed and Pending Completed studies during hospitalization [Text1]: Procedures Assistance with Respiratory Ventilation, Less than 24 Consecutive Hours, Continuous Positive Airway Pressure (09/27/22) Labs on day of discharge: Laboratory Results - last 24 hr 03/07/24 03/08/24 09:29 07:15 Hold Purple Top SEE NOTE PT 34.7 H D 44.6 H D INR 3.0 H 3.8 H Preliminary micro results at discharge 03/05/24 15:49 Blood Culture - Preliminary Blood - Venous No growth after 48 hours. 03/05/24 12:36 Blood Culture - Preliminary Blood - Venous No growth after 48 hours. Discharge Plan Discharge Anticipated Discharge Date/Time: 03/08/24 10:52 Patient Disposition: Home, Self-Care Discharge Diagnosis: pneumonia copd Referrals: Evelyn Valdez MD [Primary Care Provider] - 1 Week Discharge Medications: New prednisone 10 mg tablet See Taper PO DIRECTED Qty: 30 0RF Taper: Prednisone 40 mg daily for 3 Days and 0 Hour 30 mg daily for 3 Days and 0 Hour 20 mg daily for 3 Days and 0 Hour 10 mg daily for 3 Days and 0 Hour Rx Instructions: see taper instructions cefpodoxime 200 mg tablet 200 mg PO Q12H 5 Days Qty: 10 0RF Rx Instructions: must administer with a meal/food doxycycline monohydrate 100 mg tablet 100 mg PO BID 5 Days Qty: 10 0RF Continued levalbuterol HCl 1.25 mg/0.5 mL solution for nebulization 1.25 mg inhalation RQ4H WHILE AWAKE 90 Days Qty: 180 5RF acetaminophen 500 mg Tablet 1,000 mg PO Q6H PRN (Reason: Back Pain) multivitamin Tablet 1 tab PO DAILY warfarin 5 mg tablet 7.5 mg PO .COMPLEX Protocol: Dose Management Condition: Saturday (Week One) Dose/Route: 7.5 mg Instruction: 1.5 x 5 mg tablets Condition: Saturday Dose/Route: 2.5 mg Instruction: 0.5 x 5 mg tablets Condition: Saturday Dose/Route: 7.5 mg Instruction: 1.5 x 5 mg tablets Condition: Saturday Dose/Route: 5 mg Instruction: 1 x 5 mg tablet Condition: Dose/Route: 7.5 mg Instruction: 1.5 x 5 mg tablets Condition: Saturday Dose/Route: 5 mg Instruction: 1 x 5 mg tablet Condition: Saturday Dose/Route: 7.5 mg Instruction: 1.5 x 5 mg tablets Condition: Saturday (Week Two) Dose/Route: 7.5 mg Instruction: 1.5 x 5 mg tablets Condition: Saturday Dose/Route: 5 mg Instruction: 1 x 5 mg tablet Condition: Saturday Dose/Route: 5 mg Instruction: 1 x 5 mg tablet Condition: Saturday Dose/Route: 7.5 mg Instruction: 1.5 x 5 mg tablets Condition: Dose/Route: 5 mg Instruction: 1 x 5 mg tablet Condition: Saturday Dose/Route: 5 mg Instruction: 1 x 5 mg tablet Condition: Saturday Dose/Route: 5 mg Instruction: 1 x 5 mg tablet Protocol Text: Adjustment Start Date: Saturday02/21/24 INR Value: 3.4 INR Date: 02/10/24 Recheck Date: 03/02/24 Additional Instructions: REVIEW FOOD LIST WEEKLY. THE DOXYCLINEANTBX AND THE PREDNISONE BOTH CAN RAISE YOUR INR WITH A DELAYED ONSET MEANING IT MAY RAISE THE INR IN A WEEK OR 2. YOUR WAFARIN DOSE WILL BE DECREASED NEXT WEEK TO 7.5MG X 2 DAYS/ 5MG X 5 DAYS - MAKE SURE TO HAVE YOUR USUAL GREENS DURING THE WEEK, NO NEED TO OVER COMPENSATE WITH THE GREENS Rx Instructions: 7.5 mg orally 7.5 X 4 DAYS/ 5MG X 3 DAYS; furosemide 40 mg Tablet 40 mg PO BEDTIME warfarin 7.5 mg Tablet 7.5 mg PO SUWE acetazolamide 250 mg Tablet 250 mg PO DAILY warfarin 5 mg Tablet 5 mg PO MOTUTHFRSA furosemide 40 mg tablet 80 mg PO DAILY Rx Instructions: Take 2 tabs in the AM, and 1 tab in the PM senna 8.6 mg capsule 25.8 mg PO BEDTIME docusate sodium 100 mg capsule 200 mg PO DAILY diltiazem HCl 120 mg capsule,extended release 24hr 120 mg PO DAILY atorvastatin 20 mg tablet 20 mg PO DAILY potassium chloride 10 mEq tablet,ER particles/crystals 10 meq PO DAILY flecainide 100 mg tablet 100 mg PO Q12H Qty: 90 3RF fluticasone propion-salmeterol [Wixela Inhub] 250-50 mcg/dose blister with device 1 inh inhalation Q12H 30 Days Qty: 60 5RF levalbuterol tartrate 45 mcg/actuation HFA aerosol inhaler 2 puff inhalation Q4-6H PRN (Reason: shortness of breath) 30 Days Qty: 15 5RF Held azithromycin 250 mg tablet 250 mg PO MOWEFR Hold Instructions: hold until completing abx prednisone 5 mg tablet 5 mg PO MOWEFR Hold Instructions: resume after completing predisone taper Discharge Orders: Discharge Order (Routine); Ordered 03/08/24 Ordered By: Maira Barriga Activity on Discharge: As tolerated Stand Alone Forms: Patient Portal Discharge page Print Language: Kosovan Care Plan Goals: see blow Health Concerns: pneumonia copd exacerbation Plan of Treatment: complete course of antibiotics and steroids - resume home dose of azithromycin and prednisone after completion call to schedule follow up with PCP may need repeat imaging as outpatient to ensure resolution of infection Assessment: see discharge summary
[2024-03-08 11:17] VITALS: BP 109/62; PULSE 86; RESP 20; TEMP 36.5; O2SAT 94
--- NOTE | 2024-03-08 12:25 | MHC.CM.PN ---
Pt is medically cleared for discharge home self-care, pts to transport him home.
[2024-03-08 12:53] VITALS: PULSE 86; RESP 16
== END 2024-03-08 14:48 | disposition home or self-care (01) | DRG 194 ==
LOC: HO.ED 19:00 → HO.EDOVER 19:35 → HO.IMC 03-06 16:16
PROVIDERS: Physician Assistant; Admitting Provider Internal Medicine; Emergency Provider Emergency Medicine; PCP Internal Medicine; Visit Provider Physician Assistant Medical
DX: J18.9 Pneumonia, unspecified organism (principal); J44.0 Chronic obstructive pulmonary disease with (acute) lower respiratory infection; J44.1 Chronic obstructive pulmonary disease with (acute) exacerbation; J96.11 Chronic respiratory failure with hypoxia; Z20.822 Contact with and (suspected) exposure to COVID-19; I25.10 Atherosclerotic heart disease of native coronary artery without angina pectoris; G47.33 Obstructive sleep apnea (adult) (pediatric); E78.5 Hyperlipidemia, unspecified; I48.0 Paroxysmal atrial fibrillation; I87.8 Other specified disorders of veins; Z99.81 Dependence on supplemental oxygen; Z79.01 Long term (current) use of anticoagulants; Z79.899 Other long term (current) drug therapy
CPT/HCPCS: 0241U; 36415; 71046; 71275; 80048; 80053; 83605; 83690; 83735; 83880; 84484; 85025; 85610; 87040; 93005; 93970; 94640; 94660; 99285; J0692; J2919; Q9967

== ENCOUNTER → 2024-03-05 11:50 | Outpatient (BNV) | payer MEDICARE, SELFPAY | PROVIDERS: PCP Internal Medicine; Visit Provider Internal Medicine Cardiovascular Disease | DX: I45.10 Unspecified right bundle-branch block (principal); R94.31 Abnormal electrocardiogram [ECG] [EKG]; J18.9 Pneumonia, unspecified organism | CPT/HCPCS: 93010 ==

== ENCOUNTER → 2024-03-05 11:51 | Outpatient (BNV) | payer MEDICARE, SELFPAY | PROVIDERS: PCP Internal Medicine; Visit Provider Radiology Diagnostic Radiology | DX: R05.9 Cough, unspecified (principal); R06.02 Shortness of breath; R09.02 Hypoxemia; R22.43 Localized swelling, mass and lump, lower limb, bilateral; M79.661 Pain in right lower leg; M79.662 Pain in left lower leg; J98.6 Disorders of diaphragm; J98.11 Atelectasis | CPT/HCPCS: 71046; 71275; 93970 ==

== ENCOUNTER → 2024-03-05 19:26 | Outpatient (BNV) | payer MEDICARE, SELFPAY | PROVIDERS: Admitting Provider Internal Medicine; Emergency Provider Emergency Medicine; PCP Internal Medicine; Visit Provider Internal Medicine | DX: J96.01 Acute respiratory failure with hypoxia (principal); J96.12 Chronic respiratory failure with hypercapnia; J18.9 Pneumonia, unspecified organism | CPT/HCPCS: 99223; 99232; 99233 ==

== ENCOUNTER 2024-03-13 13:23 | Outpatient (AMB) | payer MEDICARE, SELFPAY ==
--- OUTSIDE RECORDS SUMMARY | 2024-03-13 13:36 | XMS_ITS | Encounter Summary ---
Author Organization [facility] Address [address] [place] [address] Care Team Providers Care Home Health Clinician Name Role Phone Evelyn Valdez MD Primary Care Prov ider Encounter Details Date Type Department Care Team (Latest Contact Info) Description 02/19/2024 11:00 AM EST - 02/19/2024 11:59 PM [facility] Hospital Encounter Xray - [place] [address] [place] [address] Ear pain, left; DEREK and COPD overlap syndrome (CMS/HCC) Discharge Disposition: Home or Self Care Social History Tobacco Use Types Packs/Day Years Used Date Smoking Tobacco: Former Cigarettes Q uit: 03/14/1989 Smokeless Tobacco: Former Alcohol Use Standard Drinks/Week Comments Yes 0 (1 standard drink = 0.6 oz pur e alcohol) rarely Housing Instability Answer Date Recorde d Are you worried that in the next 2 months you may not have stable housing? No 01/06/2024 Food Access & Nutrition Answer Date Rec orded Do you have access to a vari ety of food including fruits and vegetables? No 01/06/2024 Access to Healthcare Answer Date Record ed Within the last 3 months, ho w many times did you visit the emergency department for your medical care? 0 01/06/2024 Health Literacy Answer Date Recorded How often do you need to hav e someone help you when you read instructions, pamphlets, or other written material from your doctor or pharmacy? Never 01/06/2024 Caregiver: How often do you need to have someone help you when you read instructions, pamphlets, or other written material from your doctor or pharmacy? Not on file 01/06/2024 Financial Risk Answer Date Recorded How hard is it for you to pa y for the very basics like food, housing, medical care, and air conditioning / heating? Not very hard 01/06/2024 Transportation Answer Date Recorded Has the lack of transportati on kept you from meetings, work, or from getting things needed for daily living? No Has the lack of transportati on kept you from medical appointments or from getting medications? No 01/06/2024 Social Isolation Answer Date Recorded How often do you feel lonely or isolated from th ose around you? Never 01/06/2024 Food Risk Answer Date Recorded Within the past 12 months we worried whether our food would run out before we got money to buy more. Never true 01/06/2024 Within the past 12 months th e food we bought just didn't last and we didn't have money to get more. Never true 01/06/2024 Dependent Care Answer Date Recorded Do you need help finding or paying for care for your loved ones. For example, child care giver or elderly care for an older adult? No 01/06/2024 Education Answer Date Recorded Do you think completing more education or training, like finishing a GED, going to college, or learning a trade, would be helpful for you? No 01/06/2024 Employment and Income Answer Date Recor ded During the last four weeks, have you been actively looking for work? No 01/06/2024 Living Situation Answer Date Recorded What is your living situation? 1 03/07/2023 Sex and Gender Information Value Date Recorded Sex Assigned at Not on file Gender Identity Not on file Sexual Orientation Not on file Job Start Date Occupation Industry Not on file Not on file Not on file documented as of this encounter Medications at Time of Discharge Medication Sig Dispensed Refills Start Date End Date atorvastatin (LIPITOR) 20 mg tablet Take 1 tablet (20 mg total) by mouth 1 (one) time each day. 90 each 1 02/19/2024 08/17/2024 dilTIAZem CD (CARDIZEM CD) 120 mg 24 hr capsule TAKE 1 CAPSULE BY MOUTH DAILY 100 capsule 1 01/29/2024 docusate sodium (COLACE) 100 mg capsule Take 100 mg by mouth. 11/02/2016 flecainide (TAMBOCOR) 50 mg tablet Take 2 tablets (100 mg total) by mouth 2 (two) times a day. 07/05/2023 fluticasone propion-salmeteroL (Wixela Inhub) 500-50 mcg/dose diskus inhaler Inhale 1 Puff into the lungs 2 Times Daily. 08/02/2022 furosemide (LASIX) 40 mg tablet Take 1 tablet (40 mg total) by mouth 2 (two) times a day. 07/05/2023 levalbuterol (XOPENEX) 1.25 mg/3 mL nebulizer solution INHALE 1.25 MG (0.5 ML) EVERY 4 HOURS WHILE AWAKE FOR COPD FOR 30 DAYS 03/16/2022 MULTIVITAMIN ORAL Take 1 tablet by mouth 1 (one) time each day. 02/05/2019 potassium chloride (KLOR-CON M10) 10 mEq CR tablet TAKE 1 TABLET BY MOUTH DAILY 90 tablet 3 02/06/2024 senna (SENOKOT) 8.6 mg tablet Take 3 Tabs by mouth at bedtime for 360 days. 02/05/2019 warfarin (COUMADIN) 5 mg tablet TAKE 1-1.5 TABS BY MOUTH DAILY OR DIRECTED BY MD. MAY CAUSE HEAVY BLEEDING. TAKE AT THE SAME TIME EACH DAY AND DO NOT CHANGE DIETARY HABBIT 07/02/2023 cefuroxime (CEFTIN) 500 mg tablet Take 1 tablet (500 mg total) by mouth 2 (two) times a day for 10 days. 20 each 02/19/2024 02/29/2024 doxycycline (VIBRAMYCIN) 100 mg capsule Take 1 capsule (100 mg total) by mouth 2 (two) times a day for 10 days. Take with at least 8 ounces (large glass) of water, do not lie down for 30 minutes after 20 each 02/19/2024 02/29/2024 predniSONE (DELTASONE) 20 mg tablet Take 2 tablets (40 mg total) by mouth 1 (one) time each day for 5 days. 10 each 02/19/2024 02/24/2024 documented as of this encounter Discharge Disposition Disposition Code Departure Means Destination Home or Self Care documented in this encounter Plan of Treatment Upcoming Encounters Date Type Department Care Team (Late st Contact Info) Description 03/17/2024 2:45 PM EST Office Visit Adult Medicine - [place] [address] [place] [address] Evelyn Valdez MD [address] [place] [address] 03/19/2024 1:45 PM EST Office Visit Orthopedic Surgery - [place] [address] [address] [address] Donny Hughes DPM [address] [address] 03/23/2024 1:[address] Scan [address] [phone] documented as of this encounter Procedures Procedure Name Priority Date/Time Associated Diagnosis Comments XR CHEST 2 VIEWS Routine 02/19/2024 11:0 9 AM EST Ear pain, left DEREK and COPD overlap syndrome (CMS/HCC) documented in this encounter Results * XR Chest 2 Views (02/19/2024 11:09 AM EST) Anatomical Region Laterality Modality Body Radiographic Julienne ging 02/19/2024 12:4 4 PM EST Narrative 02/19/2024 12:46 PM EST Chest, 2 views. History Rales and rhonchi on the left. Comparison with prior studies, latest from 01/17/2022. There is elevation of the left hemidiaphragm. There is poor inspiration. There is a focal opacity at the right base probably representing infiltrate. There is no pleural effusion or pneumothorax. Cardiomediastinal silhouette is stable in appearance. CONCLUSIONS: Limited examination due to poor inspiration. Right lower lobe infiltrate. Chest CT may be considered for further assessment. -------- FINAL REPORT -------- Dictated By: Subha Romero Dictated Date: 02/19/2024 12:44 ET Assigned Physician: Subha Romero Reviewed and Electronically Signed By: Subha Romero Signed Date: 02/19/2024 12:46 ET Workstation ID: [id number] Transcribed By: Self Edit Transcribed Date: 02/19/2024 12:44 ET Procedure Note Subha Romero MD - 02/19/2024 Chest, 2 views. History Rales and rhonchi on the left. Comparison with prior studies, latest from 01/17/2022. There is elevation of the left hemidiaphragm. There is poor inspiration.There is a focal opacity at the right base probably representinginfiltrate. There is no pleural effusion or pneumothorax.Cardiomediastinal silhouette is stable in appearance. CONCLUSIONS: Limited examination due to poor inspiration. Right lower lobeinfiltrate. Chest CT may be considered for further assessment. -------- FINAL REPORT -------- Dictated By: Subha Romero Dictated Date: 02/19/2024 12:44 ET Assigned Physician: Subha Romero Reviewed and Electronically Signed By: Subha Romero Signed Date: 02/19/2024 12:46 ET Workstation ID: [id number] Transcribed By: Self Edit Transcribed Date: 02/19/2024 12:44 ET Leonardo WING IMG XR PROCEDURES documented in this encounter Visit Diagnoses Diagnosis Ear pain, left DEREK and COPD overlap syndrome (CMS/HCC) documented in this encounter Additional Health Concerns Infection Onset Date Last Indicated Resolved Time Respiratory Rule-Out 02/19/2024 02/19/2024 025 10:49 PM EST COVID-19 Rule-Out 02/19/2024 02/19/2024 02/19/2024 10:49 PM EST RSV 02/19/2024 02/19/2024 Assessment Noted Time PHQ-9 Depression Total Score: 0 01/06/20 24 1:14 PM EST A fall risk assessment has been complete d for the patient 01/06/2024 1:11 PM EST documented as of this encounter Care Teams Home Health Clinician Relationship Specialty Start Date End Date Evelyn Valdez MD [address] [place] [id number] PCP - General Internal Medicine 12/09/18 documented as of this encounter
--- OUTSIDE RECORDS SUMMARY | 2024-03-13 13:36 | XMS_ITS | Encounter Summary ---
Author Organization [facility] Address [address] [place] [address] Care Team Providers Care [employer] Name Role Phone Evelyn Valdez MD Primary Care Prov ider Encounter Details Date Type Department Care Team ([facility] Contact Info) Description 02/19/2024 Telephone Adult Medicine [facility] [address] [place] [address] Leonardo Swenson PA [address] [place] [address] Social History Tobacco Use Types Packs/Day Years [...] your loved ones. For example, child care specialist or elderly care for an older adult? [...] on file documented as of this encounter Progress Notes * MECCA Busch - 02/19/2024 12:51 PM EST Please request copies of recent lab work from [facility] cardiology Dr. Nava. Thank you documented in this encounter Plan of Treatment Upcoming Encounters Date Type Department Care Team (Late st Contact Info) Description 03/17/2024 2:45 PM EST Office Visit Adult Medicine - [place] [address] [place] [address] Evelyn Valdez MD [address] [place] [address] 03/19/2024 1:45 PM EST Office Visit Orthopedic Surgery - [place] [address] [phone] Donny Hughes, DPM [address] [address] 03/23/2024 1:[address] Scan - [address] [phone] documented as of this encounter Visit Diagnoses Not on filedocumented in this encounter Additional Health Concerns Infection [...] documented as of this encounter Care Teams [employer] Relationship Specialty Start Date End Date Evelyn Valdez MD [address] [place] [address] PCP - General Internal Medicine 12/09/18 documented as of this encounter
--- OUTSIDE RECORDS SUMMARY | 2024-03-13 13:36 | XMS_ITS | Encounter Summary ---
Author Organization [facility] Address [address] [place] [address] Care Team Providers Care Insight Director Name Role Phone Evelyn Valdez MD Primary Care Prov ider Reason for Visit * Reason Comments URI Encounter Details Date Type Department Care Team ([facility] st Contact Info) Description 02/19/2024 10:30 AM EST Office Visit Adult Medicine [facility] [address] [place] [id number] Leonardo Swenson PA [address] [place] [address] Acute upper respiratory infection, unspecified (Primary Dx); Ear pain, left; DEREK and COPD overlap syndrome (CMS/HCC); Ischemic cardiomyopathy; Chronic diastolic heart failure (CMS/HCC); Hypercholesterolemia Social History Tobacco Use Types Packs/Day Years Used Date Smoking Tobacco: Former Cigarettes Q uit: 03/14/1989 Smokeless Tobacco: Former Tobacco Cessation:Counseling Given: Not Answered Alcohol Use Standard Drinks/Week Comments Yes 0 [...] Record ed Within the last 3 months, catherine henderson many times did you visit the emergency [...] for your loved ones. For example, child nutrition assistant or elderly care for an older adult? [...] on file documented as of this encounter Last Filed Vital Signs Vital Sign Reading Time Taken Comments Blood Pressure 114/66 02/19/2024 10:24 AM EST Pulse 102 02/19/2024 10:24 AM EST Temperature 36.2 ??C (97.2 ??F) 02/19/2024 10:[address] Respiratory Rate - - Oxygen Saturation 95% 02/19/2024 10:24 AM EST Inhaled Oxygen Concentration - - Weight 112 kg (246 lb) 02/19/2024 10:24 AM EST Height 175.3 cm (5' 9 ) 02/19/2024 10:24 AM EST Body Mass Index 36.33 02/19/2024 10:24 AM EST documented in this encounter Ordered Prescriptions Prescription Sig Dispensed Refills Start Date End Da te atorvastatin (LIPITOR) 20 mg tablet Take 1 tablet (20 mg total) by mouth 1 (one) time each day. 90 each 1 02/19/2024 08/17/2024 doxycycline (VIBRAMYCIN) 100 mg capsule Take 1 capsule (100 mg total) by mouth 2 (two) times a day for 10 days. Take with at least 8 ounces (large glass) of water, do not lie down for 30 minutes after 20 each 02/19/2024 02/29/2024 documented in this encounter Progress Notes * MECCA Busch - 02/19/2024 10:30 AM EST CHIEF COMPLAINT: URI IDENTIFIER: Jay Gonzales is a 78 y.o. old male. HPI: History of Present Illness The patient presents for evaluation of left-sided facial pain, cough, COPD, and hypercholesterolemia. Left-sided facial pain - Experienced sudden onset of severe left-sided facial pain from mouth to catholic, including ears, on 02/06/2024 - Pain described as intense, disrupted eating - No numbness, tingling, or facial drooping - Pain subsided after a few days but recurred last night - Reported ear pain prior to consultation - Contact with individuals with colds, including a family member with double ear and eye infections - Attended a gathering at home on 02/04/2024 with ~30 people Cough - Reports persistent cough with occasional sputum for 5 days - Currently taking OTC cough medication - Previously took doxycycline without adverse effects - History of dizziness with Augmentin - No systemic symptoms like fever, chills, nausea, vomiting, diarrhea, or rash COPD - Experiencing respiratory distress for 5 days due to COPD - On prednisone 5 mg three times weekly under Dr. Siddiqui's care, aiming to discontinue Hypercholesterolemia - On atorvastatin for hypercholesterolemia - Cholesterol levels last checked on 12/17/2023 Supplemental information: Underwent cardioversion on 12/25/2023. Currently on daily potassium 10 mEq and acetazolamide. Early December he had EKG with Dr. Nava [facility] and cardioversion within a week. IMMUNIZATIONS Received both COVID-19 vaccines. ROS: GENERAL: Negative for malaise, significant weight loss and fever CARDIOVASCULAR: Negative for chest pain, leg swelling and palpitations GI: Negative for abdominal discomfort, changes in bowel habits, blood in stool or black stools ENDOCRINE: Negative for cold or heat intolerance, polyuria, polydipsia and goiter NEURO: No persistent headache, fainting, seizures, strokes, TIAs, weakness, numbness or tingling PAST MEDICAL HISTORY: Patient Active Problem List Diagnosis Date Noted Chronic deep vein thrombosis (DVT) of lower extremity ([facility]) 11/07/2023 Diastolic heart failure ([facility]) 07/06/2021 Diastolic dysfunction, left ventricle 06/30/2021 Vascular disease 06/29/2021 DEREK and COPD overlap syndrome ([facility]) 03/24/2021 Atelectasis, left 12/12/2018 Chronically elevated hemidiaphragm 12/12/2018 COPD (chronic obstructive pulmonary disease) ([facility]) 12/12/2018 Vitamin D deficiency 12/12/2018 Paroxysmal atrial fibrillation ([facility]) 12/11/2018 Severe obesity (BMI 35.0-39.9) with comorbidity ([facility]) 08/08/2016 Adrenal adenoma 04/10/2016 Aortic valve stenosis with insufficiency 06/25/2011 Ischemic cardiomyopathy 06/25/2011 Hematuria 11/14/2010 Hepatic cyst 11/14/2010 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/2010 Renal cyst 11/14/2010 Benign prostatic hyperplasia 11/03/2010 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 Hyperglycemia 11/03/2010 Metabolic syndrome 11/03/2010 Stasis edema, bilateral 09/23/2010 Diverticulosis 09/22/2010 GERD (gastroesophageal reflux disease) 09/22/2010 Hypercholesterolemia 09/22/2010 Hypertension 09/22/2010 Pulmonary embolism ([facility]) 09/22/2010 SOCIAL HISTORY: Social History Tobacco Use Smoking status: Former Current packs/day: 0.00 Types: Cigarettes Quit date: 03/14/1989 Years since quittin.9 Smokeless tobacco: Former Substance Use Topics Alcohol use: Yes Comment: rarely FAMILY HISTORY: Family Status Relation Name Status Mother at age 74 CHF, HTN, CVA Father at age 75 lung cancer Sister Alive Sister Alive healthy Daughter Alive Son Alive No partnership data on file Family History Problem Relation Name Age of Onset COPD Mother Multiple strokes Lung cancer Father No Known Problems Sister No Known Problems Sister No Known Problems Daughter No Known Problems Son ACTIVE MEDICATIONS: Outpatient Medications Marked as Taking for the 02/19/24 encounter (Office Visit) with MECCA Busch Medication Sig Dispense Refill atorvastatin (LIPITOR) 20 mg tablet Take 1 tablet (20 mg total) by mouth 1 (one) time each day. 90 each 1 dilTIAZem CD (CARDIZEM CD) 120 mg 24 hr capsule TAKE 1 CAPSULE BY MOUTH DAILY 100 capsule 1 docusate sodium (COLACE) 100 mg capsule Take 100 mg by mouth. flecainide (TAMBOCOR) 50 mg tablet Take 2 tablets (100 mg total) by mouth 2 (two) times a day. fluticasone propion-salmeteroL (Wixela Inhub) 500-50 mcg/dose diskus inhaler Inhale 1 Puff into thelungs 2 Times Daily. furosemide (LASIX) 40 mg tablet Take 1 tablet (40 mg total) by mouth 2 (two) times a day. levalbuterol (XOPENEX) 1.25 mg/3 mL nebulizer solution INHALE 1.25 MG (0.5 ML) EVERY 4 HOURS WHILE AWAKE FOR COPD FOR 30 DAYS MULTIVITAMIN ORAL Take 1 tablet by mouth 1 (one) time each day. potassium chloride (KLOR-CON M10) 10 mEq CR tablet TAKE 1 TABLET BY MOUTH DAILY 90 tablet 3 predniSONE (DELTASONE) 5 mg tablet Take 1 tablet (5 mg total) by mouth 4 (four) times a week. senna (SENOKOT) 8.6 mg tablet Take 3 Tabs by mouth at bedtime for 360 days. warfarin (COUMADIN) 5 mg tablet TAKE 1-1.5 TABS BY MOUTH DAILY OR DIRECTED BY MD. MAY CAUSE HEAVY BLEEDING. TAKE AT THE SAME TIME EACH DAY AND DO NOT CHANGE DIETARY HABBIT [DISCONTINUED] acetaZOLAMIDE (DIAMOX) 250 mg tablet Take 1 tablet (250 mg total) by mouth. [DISCONTINUED] atorvastatin (LIPITOR) 20 mg tablet Take 1 tablet (20 mg total) by mouth 1 (one) time each day. [DISCONTINUED] potassium chloride (KLOR-CON) 10 mEq CR tablet Take 1 tablet (10 mEq total) by mouth1 (one) time each day. ALLERGIES: Amoxicillin-pot clavulanate PHYSICAL EXAM: Blood pressure 114/66, pulse 102, temperature 36.2 ??C (97.2 ??F), temperature source Temporal, height 1.753 m (69 ), weight 112 kg (246 lb), SpO2 95%. Body mass index is 36.33 kg/m??. Plan is deferred until next visit APPEARANCE: alert, ill-appearing but nontoxic EYES: PERRLA, conjunctiva and sclera normal EARS: External ears normal. Canals clear. TMs normal. MOUTH/THROAT: no erythema, lesions, or exudates NECK: Neck supple, no adenopathy, thyroid symmetric and of normal size HEART: RRR with normal S1 and S2, no murmurs, no gallops, no JVD appreciated LUNG: clear to auscultation bilaterally LABS: Abstract on 11/07/2023 Component Date Value Ref Range Status Hepatitis C Screening 06/19/2012 abstracted Final Annual BMP Blood Test 09/20/2022 abstracted Final LDL/HDL Ratio 03/30/2020 3 0 - 4 Final Triglycerides 03/30/2020 114 0 - 150 mg/dL Final Cholesterol 03/30/2020 132 0 - 200 mg/dL Final HDL 03/30/2020 43 40 mg/dL Final LDL Cholesterol 03/30/2020 67 0 - 100 mg/dL Final Hemoglobin A1C 04/10/2016 5.3 4.0 - 6.0 % Final IMPRESSION: 1. Acute upper respiratory infection, unspecified 2. Ear pain, left 3. DEREK and COPD overlap syndrome (CMS/HCC) 4. Ischemic cardiomyopathy 5. Chronic diastolic heart failure (CMS/HCC) 6. Hypercholesterolemia PLAN: I have obtained verbal consent from Jay Gonzales prior to the recording. I have advised Jay Gonzales that he may refuse the recording and require the recording to be turned off at any time during this encounter. Assessment & Plan 1. Left-sided facial pain - Etiology uncertain, possible causes include common cold, pneumonia, COVID-19, or influenza - Trigeminal neuralgia less likely due to absence of facial drooping, numbness, and tingling - Swab test for influenza, COVID-19, and RSV will be conducted - Monitor symptoms closely and report changes -Chest x-ray pending 2. Cough/COPD exacerbation - Cough started 5 days ago, sometimes producing sputum - Chest x-ray ordered - Prescription for doxycycline provided - Continue OTC cough medicine as needed 4. Hypercholesterolemia - Prescription for atorvastatin sent to [facility] - Compliance Tester will be contacted for recent cholesterol levels - Blood test ordered if results unavailable Discussed signs and symptoms warranting reevaluation. Risks, benefits, and side-effects of the medication were discussed and the patient expressed verbalunderstanding and consents to the plan. Followup as necessary. This note was created using dictation software and may contain syntax and grammar errors. Orders Placed This Encounter Procedures [id number], RSV, Influenza A and B qualitative RT-PCR XR Chest 2 Views ADDITIONAL ORDERS: None MECCA Busch on 02/19/2024 at 12:45 PM EST documented in this encounter Plan of Treatment Upcoming Encounters Date Type Department Care Team (Late st Contact Info) Description 03/17/2024 2:45 PM EST Office Visit Adult Medicine - [place] [address] [place] [address] Evelyn Valdez MD [address] [place] [address] 03/19/2024 1:45 PM EST Office Visit Orthopedic Surgery - [place] [address] [phone] Donny Hughes DPM [address] [address] 03/23/2024 1:[address] Scan - [address] [phone] documented as of this encounter Procedures Procedure Name Priority Date/Time Associated Diagnosis Comments [id number], RSV, FLU A AND B QUALITATIVE RT-PCR, LOCAL REFERENCE LAB Routine 02/19/2024 10:58 AM EST Acute upper respiratory infection, unspecified Ear pain, left DEREK and COPD overlap [...] Signed Date: 02/19/2024 12:46 ET Workstation ID: [id number] Transcribed By: Self Edit Transcribed Date: 02/19/2024 [...] Signed Date: 02/19/2024 12:46 ET Workstation ID: [id number] Transcribed By: Self Edit Transcribed Date: 02/19/2024 12:44 ET Leonardo WING IMG XR PROCEDURES * (ABNORMAL) [id number], RSV, Influenza A and B qualitative RT-PCR (02/19/2024 10:58 AM EST) Pathologist [facility] SARS COV-2 Not Detected Not Detected LAB MOLECULAR DIAGNOSTICS METHOD 02/19/2024 10:49 PM [facility] Comment: Disclaimer: The manner in which this information is used to guide patient care is the responsibility of the healthcare provider. Testing was performed using the [employer] m SARS-CoV-2 test. This test has been authorized by [facility] under an Emergency Use Authorization (EUA). This test is only authorized for the duration of time the declaration that circumstances exist justifying the authorization of the emergency use of in vitro diagnostic tests for detection of SARS-CoV-2 virus and/or diagnosis of COVID-19 infection under section 564(b)(1) of the Act, 21 U.S.C. 360bbb- 3(b)(1), unless the authorization is terminated or revoked sooner. Fact sheet for Healthcare Providers can be found at: https://www.fda.gov/media/887256/download Fact sheet for Patients can be found at: https://www.fda.gov/media/311249/download Influenza A PCR Not Detected Not Detected LAB MOLECULAR DIAGNOSTICS METHOD 02/19/2024 10:49 PM [facility] Influenza B PCR Not Detected Not Detected LAB MOLECULAR DIAGNOSTICS METHOD 02/19/2024 10:49 PM [facility] RSV PCR Detected(A ) Not Detected LAB MOLECULAR DIAGNOSTICS METHOD 02/19/2024 10:49 PM [facility] Swab Nasopharyngeal structure / Unknown Non-blood Collection / Unknown 02/19/2024 10:58 AM EST 02/19/2024 10:58 AM EST Leonardo WING LAB MICROBIOLOGY - G ENERAL ORDERABLES [facility] [address] [place] [address], documented in this encounter Visit Diagnoses Diagnosis Acute upper respiratory infection, unspecified- Primary Ear pain, left DEREK and COPD overlap syndrome (CMS/HCC) Ischemic cardiomyopathy Other specified forms of chronic ischemic heart disease Chronic diastolic heart failure (CMS/HCC) Chronic diastolic heart failure Hypercholesterolemia Pure hypercholesterolemia Ear pain, left DEREK and COPD overlap syndrome (CMS/HCC) documented in this encounter Discontinued Medications Medication Sig Discontinue Reason Start Date End Da te potassium chloride (KLOR-CON) 10 mEq CR tablet Duplicate order 03/04/2023 02/19/2024 potassium chloride (KLOR-CON) 10 mEq CR tablet Take 1 tablet (10 mEq total) by mouth 1 (one) time each day. 07/04/2023 02/19/2024 acetaZOLAMIDE (DIAMOX) 250 mg tablet Take 1 tablet (250 mg total) by mouth. 02/26/2023 02/19/2024 atorvastatin (LIPITOR) 20 mg tablet Take 1 tablet (20 mg total) by mouth 1 (one) time each day. Reorder 07/05/2023 02/19/2024 documented as of this encounter Additional Health Concerns Assessment Noted Time PHQ-9 Depression Total Score: 0 01/06/20 1:14 PM EST A fall risk assessment has been complete d for the patient 01/06/2024 1:11 PM EST documented as of this encounter Care Teams Insight Director Relationship Specialty Start Date End Date Evelyn Valdez MD [address] [place] [id number] PCP - General Internal Medicine 12/09/18 documented as of this encounter
--- OUTSIDE RECORDS SUMMARY | 2024-03-13 13:36 | XMS_ITS | Clinical Summary ---
Author Organization [facility] [address] [facility] lding Address [address] [place] [address] Phone Care Team Providers Care Diet Counselor Name Role Phone Evelyn Valdez MD Primary Care Prov ider Allergies Active Allergy Reactions Criticality Noted Date Comments Amoxicillin-Pot Clavulanate 01/09/20 23 Medications Medication Sig Dispensed Refills Start Date End Date Status furosemide (LASIX) 40 mg tablet Take 1 tablet (40 mg total) by mouth 2 (two) times a day. 07/05/2023 Active flecainide (TAMBOCOR) 50 mg tablet Take 2 tablets (100 mg total) by mouth 2 (two) times a day. 07/05/2023 Active warfarin (COUMADIN) 5 mg tablet TAKE 1-1.5 TABS BY MOUTH DAILY OR DIRECTED BY . MAY CAUSE HEAVY BLEEDING. TAKE AT THE SAME TIME EACH DAY AND DO NOT CHANGE DIETARY HABBIT 07/02/2023 Active docusate sodium (COLACE) 100 mg capsule Take 100 mg by mouth. 11/02/2016 Active fluticasone propion-salmete roL (Wixela Inhub) 500-50 mcg/dose diskus inhaler Inhale 1 Puff into the lungs 2 Times Daily. 08/02/2022 Active levalbuterol (XOPENEX) 1.25 mg/3 mL nebulizer solution INHALE 1.25 MG (0.5 ML) EVERY 4 HOURS WHILE AWAKE FOR COPD FOR 30 DAYS 03/16/2022 Active senna (SENOKOT) 8.6 mg tablet Take 3 Tabs by mouth at bedtime for 360 days. 02/05/2019 Active MULTIVITAMIN ORAL Take 1 tablet by mouth 1 (one) time each day. 02/05/2019 Active dilTIAZem CD (CARDIZEM CD) 120 mg 24 hr capsule TAKE 1 CAPSULE BY MOUTH DAILY 100 capsule 1 01/29/2024 Active potassium chloride (KLOR-CON M10) 10 mEq CR tablet TAKE 1 TABLET BY MOUTH DAILY 90 tablet 3 02/06/2024 Active atorvastatin (LIPITOR) 20 mg tablet Take 1 tablet (20 mg total) by mouth 1 (one) time each day. 90 each 1 02/19/2024 5 Active atorvastatin (LIPITOR) 20 mg tablet Take 1 tablet (20 mg total) by mouth 1 (one) time each day. 07/05/2023 5 Discontinued(Reo rder) potassium chloride (KLOR-CON) 10 mEq CR tablet Take 1 tablet (10 mEq total) by mouth 1 (one) time each day. 07/04/2023 5 Discontinued acetaZOLAMIDE (DIAMOX) 250 mg tablet Take 1 tablet (250 mg total) by mouth. 02/26/2023 5 Discontinued potassium chloride (KLOR-CON) 10 mEq CR tablet 03/04/2023 5 Discontinued(Dup licate order) predniSONE (DELTASONE) 5 mg tablet Take 1 tablet (5 mg total) by mouth 4 (four) times a week. 11/20/2022 5 Discontinued doxycycline (VIBRAMYCIN) 100 mg capsule Take 1 capsule (100 mg total) by mouth 2 (two) times a day for 10 days. Take with at least 8 ounces (large glass) of water, do not lie down for 30 minutes after 20 each 02/19/2024 5 cefuroxime (CEFTIN) 500 mg tablet Take 1 tablet (500 mg total) by mouth 2 (two) times a day for 10 days. 20 each 02/19/2024 5 predniSONE (DELTASONE) 20 mg tablet Take 2 tablets (40 mg total) by mouth 1 (one) time each day for 5 days. 10 each 02/19/2024 5 Active Problems Problem Noted Date Diagnosed Date Chronic deep vein thrombosis (DVT) of lower extr emity 11/07/2023 Overview (11/07/2023): Recurrent Diastolic heart failure 07/06/2021 Overview (11/07/2023): Dr. Nava. Grade 1 diastolic dysfunction clinically euvolemic and well compensated Diastolic dysfunction, left ventricle 06/30/2021 Overview (11/07/2023): 06/30/2021 Dr. Nava [place] [facility]. No clinical signs central venous congestion. Medical therapy and pulmonary optimization with increased physical activity and breathing exercises recommended. Vascular disease 06/29/2021 DEREK and COPD overlap syndrome 03/24/2021 Atelectasis, left 12/12/2018 Chronically elevated hemidiaphragm 12/12/2018 COPD (chronic obstructive pulmonary disease) 02/2018 Overview (11/07/2023): Moderately severe Vitamin D deficiency 12/12/2018 Paroxysmal atrial fibrillation 12/11/2018 Overview (11/07/2023): On warfarin. Cardioversion 02/2018 Severe obesity (BMI 35.0-39.9) with comorbidity 08/08/2016 Adrenal adenoma 04/10/2016 Aortic valve stenosis with insufficiency 012 Overview (11/07/2023): Echo 05/25/11 mild AMS, 2+ AI, mild rheumatic changes in mitral valve Ischemic cardiomyopathy 06/25/2011 Overview (11/07/2023): Echo 05/25/11, mild to moderate left ventricular systolic dysfunction, mildly reduced diastolic relaxation, wall motion abnormalities and apical septum and inferior base, sees Dr. 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 Anticoagulation- warfarin Encounters Date Type Department Care Team Description 02/27/2024 Telephone Adult Medicine [facility] [address] [place] [address] Leonardo Swenson PA URI; Wheezing 02/19/2024 11:00 AM EST - 02/19/2024 11:59 PM EST [facility] [address] [place] [address] Ear pain, left; DEREK and COPD overlap syndrome (CMS/HCC) Discharge Disposition: Home or Self Care 02/19/2024 10:30 AM EST Office Visit Adult Medicine [facility] [address] [place] [phone] [place], Leonardo, PA Acute upper respiratory infection, unspecified (Primary Dx); Ear pain, left; DEREK and COPD overlap syndrome (CMS/HCC); Ischemic cardiomyopathy; Chronic diastolic heart failure (CMS/HCC); Hypercholesterolemi a 02/19/2024 Telephone Adult [address] [phone] Leonardo Swenson PA 02/19/[address] [phone] Evelyn Valdez MD 02/06/[address] [phone] Evelyn Valdez MD 01/06/2024 1:00 PM EST Telemedicine [address] [phone] Routine general medical examination at a health care facility (Primary Dx) 01/03/2024 1:30 PM EST Office Visit [address] [phone] Evelyn Valdez MD Paroxysmal atrial fibrillation ([facility]/HCC) (Primary Dx); Primary hypertension 01/01/[address] [phone] Evelyn Valdez MD F/U for Cardioversion 12/20/[address] [phone] Arielle Elliott [place] Medicare Annual Wellness Visit Subsequent (AWV DUE after 08/28/2023) 12/18/2023 3:00 PM EST Office Visit Orthopedic Surgery - [address] [phone] Donny Hughes DPM Arthritis of both ankles (Primary Dx); Dermatophytosis of nail; Peripheral venous insufficiency 12/16/2023 1:15 PM EST Office Visit Adult [address] [phone] Evelyn Valdez MD Chronic diastolic heart failure (CMS/HCC) (Primary Dx); Chronic pulmonary embolism, unspecified pulmonary embolism type, unspecified whether acute cor pulmonale present (CMS/HCC); DEREK and COPD overlap syndrome (CMS/HCC); Paroxysmal atrial fibrillation (CMS/HCC); Severe obesity (BMI 35.0-39.9) with comorbidity (CMS/HCC); At risk for infection from Last 3 Months Immunizations Name Administration Dates Next Due Influenza trivalent, 0.5mL ( Fluzone High-dose) 65yo and older 11/15/2022 Influenza trivalent, with pr eservative (Fluzone; Afluria) 6mo and older 11/01/2021 Moderna (age 6mo & older) Bi valent, COVID-19, 0.5 mL or 0.25 mL dosage 11/01/2021 Moderna SARS-CoV-2 COVID-19, mRNA, LNP-S, preservative free 05/05/2021,04/13/2020,03/05/2020 Pneumococcal conjugate 13 va lent (Prevnar 13, PCV13) 2mo and older 11/12/2014 Pneumococcal polysaccharide 23 valent (Pneumovax 23) 2yo and older 10/27/2012 Tdap Tetanus diptheria acell ular pertussis (Boostrix; Adacel) 7yo and older 12/16/2023,06/25/2011 Zoster recombinant (Shingrix ) 19yo and older 11/14/2018,09/14/2018 Surgical History Surgery Date Site/Laterality Comments OTHER SURGICAL HISTORY 1990 PROCEDURE: HISTORY OTHER; COMMENT: rajat filter, guidewire left in place in IVC due to it being stuck (per patient) OTHER SURGICAL HISTORY 04/08/2007 PROCEDURE: HISTORY OTHER; COMMENT: excision hemorrhagic right vocal cord polyp, microlaryngoscopy COLONOSCOPY 02/09/2011 PROCEDURE: HISTORICAL COLONOSCOPY; COMMENT: normal APPENDECTOMY 07/05/2015 PROCEDURE: HISTORICAL APPENDECTOMY HERNIA REPAIR 07/05/2015 PROCEDURE: HISTORICAL HERNIA REPAIR/UMB CYSTOSCOPY 2005 PROCEDURE: HISTORICAL CYSTOSCOPY; COMMENT: Nml OTHER SURGICAL HISTORY 10/22/2016 PROCEDURE: HISTORY OTHER; COMMENT: Removal of retained remnants of guidewire pieces,1 done while on Cardiopulmonary bypass.Dr Deras OTHER SURGICAL HISTORY 02/2018 PROCEDURE: HISTORY OTHER; COMMENT: Cardioversion CARDIAC CATHETERIZATION 10/22/2016 PROCEDURE: HISTORICAL CARDIAC CATH; COMMENT: Non obstructive CAD-mild disease APPENDECTOMY PROCEDURE: OR APPENDECTOMY OTHER SURGICAL HISTORY 09/28/2021 Right PROCEDURE: OR ENDOVEN ABLTJ INCMPTNT VEIN XTR LASER 1ST VEIN; COMMENT: Dr. Wall Medical History Medical History Date Comments Atrial flutter (CMS/HCC) 12/11/2018 DX:Atri al flutter ([facility]); COMMENT: On warfarin Adrenal adenoma 04/10/2016 DX:Adrenal adeno ma Aortic valve stenosis with insufficiency 06/25/19 DX:Aortic valve stenosis with insufficiency; COMMENT: Echo 05/25/11 mild AMS, 2+ AI, mild rheumatic changes in mitral valve Benign prostatic hyperplasia 11/03/2010 DX: Benign prostatic hyperplasia; COMMENT: Dr Portillo Atelectasis, left 12/12/2018 DX:Atelectasis , left Chronically elevated hemidiaphragm 12/12/2018 DX:Chronically elevated hemidiaphragm COPD (chronic obstructive pu lmonary disease) (CMS/HCC) 12/12/2018 DX:COPD (chronic obstructive pulmonary disease) ([facility]); COMMENT: Moderately severe Diverticulosis 09/22/2010 DX:Diverticulosi s; COMMENT: Past historic diverticulitis DVT, recurrent, lower extremity, chronic DX:DVT, recurrent, lower extremity, chronic GERD (gastroesophageal reflux disease) 09/22/2010 DX:GERD (gastroesophageal reflux disease); COMMENT: Upper endoscopy reportedly nl 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 DX:HD L lipoprotein deficiency Hematuria 11/14/2010 DX:Hematuria; CO MMENT: 02/16, sees Dr Portillo, ct abd with kidney cysts, atypical cells in urine cytology, cystoscopy 03/23/05 nl, neg urine cytology 05/01/10 Hepatic cyst 11/14/2010 DX:Hepatic cyst; COMMENT: Seen abd cat scan 11/17 Hemorrhagic pericardial effusion 12/12/2018 DX:Hemorrhagic pericardial effusion; COMMENT: 10/2016 Cardiac tamponade secondary to hemorrhagic pericardial effusion History of rheumatic fever as a child 12/12/2018 DX:History of rheumatic fever as a child Hypercholesterolemia 09/22/2010 DX:Hypercho lesterolemia Hyperglycemia 11/03/2010 DX:Hyperglycemia Hypertension 09/22/2010 DX:Hypertension Ischemic cardiomyopathy 06/25/2011 DX:Ische carroll cardiomyopathy; COMMENT: Echo 05/25/11, mild to moderate left ventricular systolic dysfunction, mildly reduced diastolic relaxation, wall motion abnormalities and apical septum and inferior base, sees Dr. Johnson Metabolic syndrome 11/03/2010 DX:Metabolic syndrome Pulmonary embolism (CMS/HCC) 09/22/2010 DX: Pulmonary embolism (HCC); COMMENT: DVT right leg 1989, PE and DVT recurrent 02/1990, rajat filter placed. 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 9) with comorbidity (CMS/HCC) 08/08/2016 DX:Severe obesity (BMI 35.0- 39.9) with comorbidity (HCC) Stasis edema, bilateral 09/23/2010 DX:Stasi s edema, bilateral Vitamin D deficiency 12/12/2018 DX:Vitamin D deficiency Diastolic dysfunction, left ventricle 06/30/2021 DX:Diastolic dysfunction, left ventricle; COMMENT: 06/30/2021 Dr. Elijah Olivas cardiology. No clinical signs central venous congestion. Medical therapy and pulmonary optimization with increased physical activity and breathing exercises recommended. Family History Medical History Relation Name Comments No Known Problems Daughter Lung cancer Father COPD Mother Multiple stroke s No Known Problems Sister 1 No Known Problems Sister 2 No Known Problems Son Relation Name Status Comments Daughter Alive Father (Age 75) lung cance r Mother (Age 74) CHF, HTN, CVA Sister 1 Alive Sister 2 Alive healthy Son Alive Social History Tobacco Use Types Packs/Day Years [...] care for your loved ones. For example, exceptional children teacher or elderly care for an older adult? [...] file Not on file Not on file Obstetrics History Last Filed Vital Signs Vital Sign Reading [...] Mass Index 36.33 02/19/2024 10:24 AM EST Plan of Treatment Upcoming Encounters Date Type Department Care Team (Late st Contact Info) Description 03/17/2024 2:45 PM EST Office Visit Adult Medicine - [place] [address] [place] [address] Evelyn Valdez MD [address] [place] [address] 03/19/2024 1:45 PM EST Office Visit Orthopedic Surgery - [place] [phone] [phone] Donny Hughes, DPM [address] [address] 03/23/2024 1:[address] Scan - [address] [phone] Health Maintenance Due Date Last Done Comments Hypertension/CHF/CAD Annual BMP Blood Test 09/21/2023 09/20/2022 Depression Screening 01/05/2025 01/06/2024 Falls Risk Assessment 01/05/2025 01/06/2024 Medicare Annual Wellness Visit 01/05/2025 01/06/2024 Social Influencers of Health Screening 01/05/2025 01/06/2024 Cholesterol Screening (Lipid Panel) 03/30/2025 03/30/2020 DTaP,Tdap,and Td Vaccines (3 - Td or Tdap) 12/15/2033 12/16/2023, 06/25/2011 Hepatitis C Screening Completed 06/19/2012 Pneumococcal Vaccine: 65+ Years Completed 11/12/2014, 10/27/2012 Zoster Vaccines Completed 11/14/2018, 09/12, 09/14/2018, Additional history exists COVID-19 Vaccine Completed 11/25/2023, 06/2022, 11/01/2021, Additional history exists Influenza Vaccine Completed 11/25/2023, , 11/01/2021 RSV Immunization Patients 60+ Years Old Completed 11/25/2023 HIB Vaccines Aged Out No longer eligi ble based on patient's age to complete this topic HPV Vaccines Aged Out No longer eligi ble based on patient's age to complete this topic Hepatitis A Vaccines Aged Out No long er eligible based on patient's age to complete this topic Hepatitis B Vaccines Aged Out No long er eligible based on patient's age to complete this topic IPV Vaccines Aged Out No longer eligi ble based on patient's age to complete this topic MMR Vaccines Aged Out No longer eligi ble based on patient's age to complete this topic Meningococcal ACWY Vaccine Aged Out N o longer eligible based on patient's age to complete this topic RSV Immunization Patients Under 20 months Aged Out No longer eligible based on patient's age to complete this topic Varicella Vaccines Aged Out No longer eligible based on patient's age to complete this topic Procedures Procedure Name Priority Date/Time Associated Diagnosis Comments XR CHEST 2 VIEWS Routine 02/19/2024 11:0 9 AM EST Ear pain, left DEREK and COPD overlap syndrome (CMS/HCC) [id number], RSV, FLU A AND B QUALITATIVE RT-PCR, LOCAL REFERENCE LAB Routine 02/19/2024 10:58 AM EST Acute upper respiratory infection, unspecified Ear pain, left DEREK and COPD overlap syndrome (CMS/HCC) ANNUAL BMP BLOOD TEST Routine 09/20/2022 LIPID PANEL Routine 03/30/2020 HEPATITIS C SCREENING Routine 06/19/2012 from Last 3 Months or Most Recently Relevant to Health Maintenance Results * XR Chest 2 Views (02/19/2024 [...] Signed Date: 02/19/2024 12:46 ET Workstation ID: [id number] Transcribed By: Self Edit Transcribed Date: 02/19/2024 [...] Signed Date: 02/19/2024 12:46 ET Workstation ID: [id number] Transcribed By: Self Edit Transcribed Date: 02/19/2024 12:44 ET [facility] XR PROCEDURES * (ABNORMAL) [id number], RSV, Influenza A and B qualitative RT-PCR (02/19/2024 10:58 AM EST) SARS COV-2 Not Detected Not Detected LAB MOLECULAR DIAGNOSTICS METHOD 02/19/2024 10:49 PM [facility] Comment: Disclaimer: The manner in which this information is used to guide patient care is the responsibility of the healthcare provider. Testing was performed using the [employer] m SARS-CoV-2 test. This test has been authorized by FDA under an Emergency Use Authorization (EUA). This [...] for Healthcare Providers can be found at: https://www.fda.gov/media/343711/download Fact sheet for Patients can be found at: https://www.fda.gov/media/434625/download Influenza A PCR Not Detected Not Detected LAB MOLECULAR DIAGNOSTICS METHOD 02/19/2024 10:49 PM EST [facility] Influenza B PCR Not Detected Not Detected LAB MOLECULAR DIAGNOSTICS METHOD 02/19/2024 10:49 PM [facility] RSV PCR Detected(A ) Not Detected LAB MOLECULAR DIAGNOSTICS METHOD 02/19/2024 10:49 PM [facility] Swab Nasopharyngeal structure / Unknown Non-blood Collection / Unknown 02/19/2024 10:58 AM EST 02/19/2024 10:58 AM EST [facility] MICROBIOLOGY - G ENERAL ORDERABLES [facility] [address] [place] [address], * Annual BMP Blood Test (09/20/2022) Pathologist [facility] Annual BMP Blood Test abstracted Historical Provider MD EDI TOWNSEND E * Lipid panel (03/30/2020) [facility] LDL/HDL Ratio 3 0 - 4 Triglycerides 114 0 - 150 mg/dL Cholesterol 132 0 - 200 mg/dL HDL 43 40 mg/dL LDL Cholesterol 67 0 - 100 mg/dL Blood Venous blood specimen / Unknown Historical Provider LAB BLOOD ORDERAB LES * Hepatitis C Screening (06/19/2012) [facility] Hepatitis C Screening abstracted Historical Provider MD EDI Che from Last 3 Months or Most Recently Relevant to Health Maintenance Additional Health Concerns Infection Onset Date Last Indicated RSV 02/19/2024 02/19/2024 Care Teams Diet Counselor Relationship Specialty Start Date End Date Evelyn Valdez MD [address] [place] [id number] PCP - General Internal Medicine 12/09/18
--- OUTSIDE RECORDS SUMMARY | 2024-03-13 13:36 | XMS_ITS | Continuity of Care Document ---
Author Name [facility] Organization [facility] Care Team Providers Care Director Of Restaurant Operations Name Role Phone [facility] Unavailable Unavailable Problems Problem Status Onset Date Classification Date Reported Comments Source Acute embolism and thrombosis of unspeci Active 11/28/2021 [facility] Acute respiratory failure with hypoxia Active 11/28/2021 12/02/2021 45 [facility] COPD exacerbation Active 11/28/2021 12/02/2021 45 [facility] Influenza A Active 11/28/2021 12/02/2021 45 [facility] Paroxysmal atrial fibrillation Active 11/28/2021 12/02/2021 45 [facility] Anticoagulated Active 11/28/2021 12/02/2021 45 [facility] Morbid obesity Active 11/28/2021 12/02/2021 45 [facility] Shortness of breath Active [facility] Medications Medication Details Route Status Patient Instructions Ordering Provider Order Date Source guaiFENesin 600 mg oral tablet, extended release = 1 Tab, ORAL, BID, X 5 Day(s), # 10 Tab, 0 Refill(s), Acute, Pharmacy: [facility], 175.6, cm, 11/28/21 6:49:00 HST, Height/Length (cm), 117.8, kg, 11/28/21 6:49:00 HST, Dose calculation weight (kg) Active 022 45 [facility] Albuterol (Eqv-Proventil HFA) 90 mcg/inh inhalation aerosol 2 Puff, INH, Q6H, # 8.5 gm, 0 Refill(s), Maintenance, Pharmacy: [facility], 175.6, cm, 11/28/21 6:49:00 HST, Height/Length (cm), 117.8, kg, 11/28/21 6:49:00 HST, Dose calculation weight (kg) Active [facility] Tamiflu 75 mg oral capsule = 1 Cap, ORAL, BID, X 2 Day(s), # 4 Cap, 0 Refill(s), [facility], [facility], 11/28/21 6:49:00 HST, Height/Length (cm), 117.8, kg, 11/28/21 6:49:00 HST, Dose calculation weight (kg) Active [facility] predniSONE 50 mg oral tablet = 1 Tab, ORAL, DAILY, X 5 Day(s), # 5 Tab, 0 Refill(s), Acute, Pharmacy: [facility], 175.6, cm, 11/28/21 6:49:00 HST, Height/Length (cm), 117.8, kg, 11/28/21 6:49:00 HST, Dose calculation weight (kg) Active [facility] multivitamin oral 1 Tab, ORAL, DAILY, OTC, Maintenance Active [facility] Senna = 1 Tab, ORAL, DAILY, OTC, Maintenance Active [facility] warfarin 5 mg oral tablet = 1.5 Tab, ORAL, QTThSa, Maintenance Active [facility] PREPACK Albuterol (0.83 mg/mL) 2.5mg/3mL #6 3 mL, INH, Q4H, PRN Shortness of breath/wheezin g, Maintenance Active [facility] [place] Wixela Inhub 500 mcg-50 mcg inhalation powder 1 Inhalation, INH, BID, Maintenance Active [facility] warfarin 5 mg oral tablet = 1 Tab, ORAL, QSuMWF, 0 Refill(s), Maintenance Active [facility] [place] DilTIAZem (Eqv-Cardizem CD) 120 mg/24 hours oral capsule, extended release = 1 Cap, ORAL, DAILY, 0 Refill(s), Maintenance Active [facility] [place] Klor-Con 10 mEq oral tablet, extended release = 1 Tab, ORAL, DAILY, 0 Refill(s), Maintenance Active 45 [facility] [place] flecainide 50 mg oral tablet = 1 Tab, ORAL, Q12H, 0 Refill(s), Maintenance Active 45 [facility] [place] furosemide 40 mg oral tablet = 1 Tab, ORAL, BID, 0 Refill(s), Maintenance Active 45 [facility] [place] atorvastatin 20 mg oral tablet = 1 Tab, ORAL, DAILY, 0 Refill(s), Maintenance Active 45 [facility] [place] Allergies, Adverse Reactions, Alerts Substance Category Reaction Severity Reaction type Status Date Reported Comments Source Augmentin Assertion vomiting, dizziness Drug allergy Active 45 [facility] [place] Results Order Name Results Value Reference Range Date Interpretation Comments Source AutoDiff * Auto Neutrophil Percent 67.8 % 40.0 - 80.0 12/01 [facility] [place] AutoDiff * Auto Neutrophil Absolute 6.1 K/uL 12/01 [facility] [place] AutoDiff * Auto Lymphocyte Percent 13.0 % 18.0 - 45.0 12/01 L [facility] [place] AutoDiff * Auto Lymphocyte Absolute 1.2 K/uL 12/01 [facility] [place] AutoDiff * Auto Monocyte Percent 19.0 % 3.0 - 12.0 12/01 H [facility] [place] AutoDiff * Auto Monocyte Absolute 1.7 K/uL 12/01 [facility] [place] AutoDiff * Auto Eosinophil Percent 0.1 % - <=7.0 12/01 [facility] [place] AutoDiff * Auto Eosinophil Absolute 0.0 K/uL 12/01 [facility] [place] AutoDiff * Auto Basophil Percent 0.1 % - <=2.0 12/01 [facility] [place] AutoDiff * Auto Basophil Absolute 0.0 K/uL 12/01 [facility] [place] AutoDiff * Sex assigned at Male 12/01 [facility] [place] CBC WBC 9.0 K/uL 3.5 - 10.4 10/21 /2022 NA [facility] [place] CBC RBC 4.83 M/uL 4.00 - 6.20 12/01 NA [facility] [place] CBC HGB 14.2 gm/dL 14.0 - 18.0 12/01 NA [facility] [place] CBC HCT 42.7 % 42.0 - 52.0 12/01 NA [facility] CBC MCV 88.4 fL 82.0 - 101.0 12/01 NA [facility] [place] CBC MCH 29.4 pg 26.0 - 34.0 12/01 NA [facility] [place] CBC MCHC 33.2 gm/dL 32.0 - 36.0 12/01 NA [facility] CBC RDW 15.2 % 11.0 - 15.0 12/01 H [facility] [place] CBC PLT 127 K/uL 140 - 440 12/01 L [facility] CBC MPV 8.5 fL 7.4 - 11.4 12/01 NA [facility] [place] CBC Sex assigned at Male 12/01 NA [facility] [place] CBC Manual Diff Y/N SReview 12/01 NA [facility] CMP Sodium Level 143 mmol/L 136 - 145 12/01 NA [facility] CMP Potassium Level 3.8 mmol/L 3.5 - 5.1 12/01 NA [facility] CMP Chloride Level 101 mmol/L 98 - 107 12/01 NA [facility] [place] CMP CO2/Carbon Dioxide 34.6 mmol/L 21.0 - 32.0 12/01 H [facility] [place] CMP Anion Gap 7 mmol/L 4 - 16 12/01 NA [facility] CMP Glucose, Random 90 mg/dL 70 - 95 12/01 NA Reference ranges are based on a fasting specimen. [facility] [place] CMP BUN 33 mg/dL 7 - 20 12/01 H [facility] [place] CMP Creatinine 0.8 mg/dL 0.9 - 1.3 12/01 L [facility] [place] CMP BUN/Creat Ratio 41.2 12/01 [facility] CMP Osmolality, Calculated 303 12/01 [facility] Calcium Level 9.0 mg/dL 8.6 - 10.0 12/01 [facility] CMP Total Protein 6.4 gm/dL 6.4 - 8.2 12/01 [facility] CMP Albumin Level 3.7 gm/dL 3.5 - 5.0 12/01 [facility] CMP Globulin Level 2.7 gm/dL 2.0 - 4.0 12/01 [facility] CMP A/G Ratio 1.4 1.1 - 2.2 12/01 [facility] CMP ALP 61 units/L 38 - 126 12/01 [facility] [place] CMP ALT 26 units/L 10 - 40 12/01 [facility] CMP AST 16 units/L 15 - 41 12/01 [facility] CMP Bilirubin, Total 0.6 mg/dL - <=1.0 12/01 [facility] CMP GFR - Non >60 mL/min/1.73 m2 12/01 NA <60 = Renal Insufficiency , <15 = Renal Failure. This equation is not applicable to person's under 18 years of age.eGFR calculation based on the IDNM traceable four-paramete r MDRD equation. [facility] CMP GFR - >60 mL/min/1.73 m2 12/01 [facility] C[facility] Sex assigned at Male 12/01 [facility] PT PT - Patient 25.1 sec 11.8 - 13.8 12/01 H [facility] PT PT - INR 2.42 12/01 [...] 2.5 - 3.5 of recurrent myocardial infarction [facility] [place] PT Sex assigned at Male 12/01 NA [facility] SReview Anisocytosis 1+ None 12/01 * [facility] SReview RBC Morphology Abnormal Normal 12/01 * [facility] SReview Sex assigned at Male 12/01 NA [facility] [place] AutoDiff * Auto Neutrophil Percent 71.4 % 40.0 - 80.0 11/30 NA [facility] [place] AutoDiff * Auto Neutrophil Absolute 7.3 K/uL 11/30 NA [facility] [place] AutoDiff * Auto Lymphocyte Percent 10.6 % 18.0 - 45.0 11/30 L [facility] [place] AutoDiff * Auto Lymphocyte Absolute 1.1 K/uL 11/30 NA [facility] [place] AutoDiff * Auto Monocyte Percent 17.8 % 3.0 - 12.0 11/30 H [facility] [place] AutoDiff * Auto Monocyte Absolute 1.8 K/uL 11/30 NA [facility] [place] AutoDiff * Auto Eosinophil Percent 0.1 % - <=7.0 11/30 NA [facility] [place] AutoDiff * Auto Eosinophil Absolute 0.0 K/uL 11/30 NA [facility] [place] AutoDiff * Auto Basophil Percent 0.1 % - <=2.0 11/30 NA [facility] [place] AutoDiff * Auto Basophil Absolute 0.0 K/uL 11/30 NA [facility] [place] AutoDiff * Sex assigned at Male 11/30 NA [facility] [place] CBC WBC 10.2 K/uL 3.5 - 10.4 11/30 NA [facility] [place] CBC RBC 4.66 M/uL 4.00 - 6.20 11/30 NA [facility] CBC HGB 13.9 gm/dL 14.0 - 18.0 11/30 L [facility] CBC HCT 41.3 % 42.0 - 52.0 11/30 L [facility] CBC MCV 88.7 fL 82.0 - 101.0 11/30 NA [facility] CBC MCH 29.8 pg 26.0 - 34.0 11/30 NA [facility] CBC MCHC 33.5 gm/dL 32.0 - 36.0 11/30 NA [facility] [place] CBC RDW 15.3 % 11.0 - 15.0 11/30 H [facility] [place] CBC PLT 121 K/uL 140 - 440 11/30 L [facility] CBC MPV 7.9 fL 7.4 - 11.4 11/30 NA [facility] CBC Manual Diff Y/N SReview 11/30 NA [facility] CBC Sex assigned at Male 11/30 NA [facility] CMP Sodium Level 138 mmol/L 136 - 145 11/30 NA [facility] CMP Potassium Level 3.9 mmol/L 3.5 - 5.1 11/30 NA [facility] CMP Chloride Level 99 mmol/L 98 - 107 11/30 NA [facility] [place] CMP CO2/Carbon Dioxide 33.80 mmol/L 21.00 - 32.00 11/30 H [facility] [place] CMP Anion Gap 5 mmol/L 4 - 16 11/30 NA [facility] CMP Glucose, Random 97 mg/dL 70 - 95 11/30 H Reference ranges are based on a fasting specimen. [facility] [place] CMP BUN 33 mg/dL 7 - 20 11/30 H [facility] CMP Creatinine 0.7 mg/dL 0.9 - 1.3 11/30 L [facility] [place] CMP BUN/Creat Ratio 47.1 11/30 NA [facility] [place] CMP Osmolality, Calculated 293 11/30 NA [facility] [place] CMP Calcium Level 8.7 mg/dL 8.6 - 10.0 11/30 NA [facility] CMP Total Protein 6.3 gm/dL 6.4 - 8.2 11/30 L [facility] CMP Albumin Level 3.8 gm/dL 3.5 - 5.0 11/30 NA [facility] CMP Globulin Level 2.5 gm/dL 2.0 - 4.0 11/30 NA [facility] CMP A/G Ratio 1.5 1.1 - 2.2 11/30 NA [facility] CMP ALP 56 units/L 38 - 126 11/30 NA [facility] CMP ALT 21 units/L 10 - 40 11/30 NA [facility] CMP AST 17 units/L 15 - 41 11/30 NA [facility] CMP Bilirubin, Total 0.6 mg/dL - <=1.0 11/30 NA [facility] CMP GFR - Non >60 mL/min/1.73 m2 11/30 NA <60 = Renal Insufficiency , <15 = Renal Failure. This equation is not applicable to person's under 18 years of age.eGFR calculation based on the IDNM traceable four-paramete r MDRD equation. [facility] CMP GFR - >60 mL/min/1.73 m2 11/30 NA [facility] CMP Sex assigned at Male 11/30 NA [facility] PT PT - Patient 25.6 sec 11.8 - 13.8 11/30 H [facility] PT PT - INR 2.48 11/30 [...] 2.5 - 3.5 of recurrent myocardial infarction [facility] [place] PT Sex assigned at Male 11/30 NA [facility] [place] SReview Anisocytosis 1+ None 11/30 * [facility] SReview RBC Morphology Abnormal Normal 11/30 * [facility] [place] SReview Sex assigned at Male 11/30 NA [facility] [place] AutoDiff * Auto Neutrophil Percent 73.6 % 40.0 - 80.0 11/29 NA [facility] [place] AutoDiff * Auto Neutrophil Absolute 8.8 K/uL 11/29 NA [facility] [place] AutoDiff * Auto Lymphocyte Percent 5.5 % 18.0 - 45.0 11/29 L [facility] [place] AutoDiff * Auto Lymphocyte Absolute 0.7 K/uL 11/29 NA [facility] [place] AutoDiff * Auto Monocyte Percent 20.9 % 3.0 - 12.0 11/29 H [facility] [place] AutoDiff * Auto Monocyte Absolute 2.5 K/uL 11/29 NA [facility] [place] AutoDiff * Auto Eosinophil Percent 0.0 % - <=7.0 11/29 NA [facility] [place] AutoDiff * Auto Eosinophil Absolute 0.0 K/uL 11/29 NA [facility] [place] AutoDiff * Auto Basophil Percent 0.0 % - <=2.0 11/29 NA [facility] [place] AutoDiff * Auto Basophil Absolute 0.0 K/uL 11/29 NA [facility] [place] AutoDiff * Sex assigned at Male 11/29 NA [facility] [place] CBC WBC 12.0 K/uL 3.5 - 10.4 11/29 H [facility] [place] CBC RBC 4.69 M/uL 4.00 - 6.20 11/29 NA [facility] [place] CBC HGB 13.8 gm/dL 14.0 - 18.0 11/29 L [facility] [place] CBC HCT 42.2 % 42.0 - 52.0 11/29 NA [facility] [place] CBC MCV 89.9 fL 82.0 - 101.0 11/29 NA [facility] [place] CBC MCH 29.3 pg 26.0 - 34.0 11/29 NA [facility] [place] CBC MCHC 32.6 gm/dL 32.0 - 36.0 11/29 NA [facility] [place] CBC RDW 15.1 % 11.0 - 15.0 11/29 H [facility] [place] CBC PLT 121 K/uL 140 - 440 11/29 L [facility] [place] CBC MPV 8.5 fL 7.4 - 11.4 11/29 NA [facility] CBC Manual Diff Y/N SReview 11/29 NA [facility] [place] CBC Sex assigned at Male 11/29 NA [facility] CMP Sodium Level 140 mmol/L 136 - 145 11/29 NA [facility] CMP Potassium Level 4.1 mmol/L 3.5 - 5.1 11/29 NA [facility] [place] CMP Chloride Level 102 mmol/L 98 - 107 11/29 NA [facility] [place] CMP CO2/Carbon Dioxide 30.5 mmol/L 21.0 - 32.0 11/29 NA [facility] [place] CMP Anion Gap 8 mmol/L 4 - 16 11/29 NA [facility] CMP Glucose, Random 115 mg/dL 70 - 95 11/29 H Reference ranges are based on a fasting specimen. [facility] [place] CMP BUN 27 mg/dL 7 - 20 11/29 H [facility] [place] CMP Creatinine 0.7 mg/dL 0.9 - 1.3 11/29 L [facility] [place] CMP BUN/Creat Ratio 38.6 11/29 NA [facility] [place] CMP Osmolality, Calculated 296 11/29 NA [facility] [place] CMP Calcium Level 9.0 mg/dL 8.6 - 10.0 11/29 NA [facility] CMP Total Protein 6.6 gm/dL 6.4 - 8.2 11/29 NA [facility] [place] CMP Albumin Level 3.8 gm/dL 3.5 - 5.0 11/29 NA [facility] CMP Globulin Level 2.8 gm/dL 2.0 - 4.0 11/29 NA [facility] [place] CMP A/G Ratio 1.4 1.1 - 2.2 11/29 NA [facility] [place] CMP ALP 59 units/L 38 - 126 11/29 NA [facility] CMP ALT 21 units/L 10 - 40 11/29 NA [facility] [place] CMP AST 18 units/L 15 - 41 11/29 NA [facility] CMP Bilirubin, Total 0.5 mg/dL - <=1.0 11/29 NA [facility] CMP GFR - Non >60 mL/min/1.73 m2 11/29 NA <60 = Renal Insufficiency , <15 = Renal Failure. This equation is not applicable to person's under 18 years of age.eGFR calculation based on the IDNM traceable four-paramete r MDRD equation. [facility] CMP GFR - >60 mL/min/1.73 m2 11/29 NA [facility] CMP Sex assigned at Male 11/29 NA [facility] PT PT - Patient 26.6 sec 11.8 - 13.8 11/29 H [facility] PT PT - INR 2.61 11/29 [...] 2.5 - 3.5 of recurrent myocardial infarction [facility] PT Sex assigned at Male 11/29 NA [facility] SReview Anisocytosis 1+ None 11/29 * [facility] SReview RBC Morphology Abnormal Normal 11/29 * [facility] SReview Sex assigned at Male 11/29 NA [facility] [place] POC CG4+ Harshal VBG - pH 7.390 7.310 - 7.410 11/28 NA Device Code: LAB iSTATFacility : 0045Location: EDSerial Number: [id number] r Code: superkOperato r Name: Aditi Cornelius able Lot: [id number] [facility] [place] POC CG4+ Harshal VBG - pCO2 46.6 mmHg 41.0 - 51.0 11/28 NA [facility] [place] POC CG4+ Harshal VBG - pO2 45 mmHg 30 - 40 11/28 H [facility] [place] POC CG4+ Harshal VBG - HCO3 28.2 mmol/L 23.0 - 28.0 11/28 H [facility] [place] POC CG4+ Harshal VBG - TCO2 30 mmol/L 24 - 29 11/28 H [facility] [place] POC CG4+ Harshal VBG - O2 Sat 80.0 % 0.0 - 75.0 11/28 H [facility] [place] POC CG4+ Harshal VBG - BE 2 mmol/L -3 - 3 11/28 NA [facility] [place] POC CG4+ Harshal POCT - Lactate/Lacti c Acid 0.90 mmol/L 0.50 - 1.90 11/28 NA [facility] [place] POC CG4+ Harshal BG - Modified Bayron Test NA 11/28 NA [facility] [place] POC CG4+ Harshal BG - Site OTHER 11/28 NA [facility] [place] POC CG4+ Harshal Sex assigned at Male 11/28 NA [facility] BMP Sodium Level 136 mmol/L 136 - 145 11/28 NA [facility] BMP Potassium Level 3.7 mmol/L 3.5 - 5.1 11/28 NA [facility] BMP Chloride Level 100 mmol/L 98 - 107 11/28 NA [facility] [place] BMP CO2/Carbon Dioxide 26.10 mmol/L 21.00 - 32.00 11/28 NA [facility] BMP Anion Gap 10 mmol/L 4 - 16 11/28 NA [facility] BMP Glucose, Random 105 mg/dL 70 - 95 11/28 H Reference ranges are based on a fasting specimen. [facility] BMP BUN 26 mg/dL 7 - 20 11/28 H [facility] BMP Creatinine 0.8 mg/dL 0.9 - 1.3 11/28 L [facility] BMP BUN/Creat Ratio 32.5 11/28 NA [facility] BMP Osmolality, Calculated 287 11/28 NA [facility] BMP Calcium Level 8.6 mg/dL 8.6 - 10.0 11/28 NA [facility] BMP GFR - Non >60 mL/min/1.73 m2 11/28 NA <60 = Renal Insufficiency , <15 = Renal Failure. This equation is not applicable to person's under 18 years of age.eGFR calculation based on the IDNM traceable four-paramete r MDRD equation. [facility] BMP GFR - >60 mL/min/1.73 m2 11/28 NA [facility] BMP Sex assigned at Male 11/28 NA [facility] BNPep BNP B-Natriuretic Peptide 58 pg/mL - <=100 11/28 NA [facility] BNPep Sex assigned at Male 11/28 NA [facility] [place] CBC WBC 8.9 K/uL 3.5 - 10.4 11/28 NA [facility] [place] CBC RBC 4.60 M/uL 4.00 - 6.20 11/28 NA [facility] [place] CBC HGB 13.7 gm/dL 14.0 - 18.0 11/28 L [facility] [place] CBC HCT 40.7 % 42.0 - 52.0 11/28 L [facility] [place] CBC MCV 88.5 fL 82.0 - 101.0 11/28 NA [facility] CBC MCH 29.7 pg 26.0 - 34.0 11/28 NA [facility] CBC MCHC 33.5 gm/dL 32.0 - 36.0 11/28 NA [facility] CBC RDW 15.3 % 11.0 - 15.0 11/28 H [facility] CBC PLT 109 K/uL 140 - 440 11/28 L [facility] CBC MPV 7.9 fL 7.4 - 11.4 11/28 NA [facility] CBC Manual Diff Y/N Man Diff 11/28 NA [facility] CBC Sex assigned at Male 11/28 NA [facility] CK+MBIF CK, Total 164 units/L 32 - 230 11/28 NA [facility] CK+MBIF Sex assigned at Male 11/28 [facility] [id number] LU SARS-CoV-2 Source Nasopharyng eal 11/28 NA [facility] [id number] LU Influenza A Agn Molecular Detected Not [...] Test results? Y/N YAssay performed by RT-PCR [facility] [id number] LU Influenza B Agn Molecular Not Detected Not Detected 11/28 NA Assay performed by RT-PCR [facility] [id number] LU SARS-CoV-2 Molecular Not Detected Not Detected 11/28 NA Assay performed by RT-PCRThis test was performed under U.S. Food and Drug Administratio n (FDA) Emergency use Authorization (EUA). This test has been validated but the FDAs independent review of this validation is pending. [facility] [id number] LU SARS-CoV-2 First test? No 11/28 NA [facility] [id number] IGOR Health Care Worker? No 11/28 NA [facility] [id number] IGOR SARS-CoV-2 Is the Patient Hospitalized? No 11/28 NA [facility] [id number] IGOR SARS-CoV-2 Is the Patient in ICU? No 11/28 NA [facility] [place] [id number] IGOR Patient From [facility] Area? Yes 11/28 NA [facility] [id number] IGOR Symptomatic per CDC? Yes 11/28 NA [facility] [id number] IGOR SARS-CoV-2 Is the Patient ? No 11/28 NA [facility] [place] [id number] IGOR Sex assigned at Male 11/28 NA [facility] [place] MDiff Bands % 1 % - <=6 11/28 NA [facility] [place] MDiff Manual Neutrophil Percent 64 % 40 - 80 11/28 NA [facility] [place] MDiff Manual Neutrophil Absolute 5.8 K/uL 11/28 NA [facility] [place] MDiff Manual Lymphocyte Percent 6 % 18 - 45 11/28 L [facility] [place] MDiff Manual Lymphocyte Absolute 0.5 K/uL 11/28 NA [facility] [place] MDiff Manual Monocyte Percent 27 % 3 - 12 11/28 H [facility] [place] MDiff Manual Monocyte Absolute 2.4 K/uL 11/28 NA [facility] [place] MDiff Manual Eosinophil Percent 2 % - <=7 11/28 NA [facility] [place] MDiff Manual Eosinophil Absolute 0.2 K/uL 11/28 NA [facility] [place] MDiff RBC Morphology Abnormal Normal 11/28 * [facility] [place] MDiff Anisocytosis 1+ None 11/28 * [facility] [place] MDiff Polychromasia 1+ None 11/28 * [facility] [place] MDiff Sex assigned at Male 11/28 NA [facility] [place] Mg Magnesium Level 1.9 mg/dL 1.6 - 2.5 11/28 NA [facility] [place] Mg Sex assigned at Male 11/28 NA [employer] PT - Patient 32.7 sec 11.8 - 13.8 11/28 H [facility] [facility] PT - INR 3.41 11/28 NA [...] 2.5 - 3.5 of recurrent myocardial infarction [facility] [employer] PT Sex assigned at Male 11/28 NA [employer] [employer] PTT PTT - Patient 42 sec 21 - 34 11/28 [facility] PTT Sex assigned at Male 11/28 [facility] TROPHS Troponin I High Sensitivity 7 ng/L [...] testing may be helpful for interpretatio n. [employer] [employer] TROPHS Sex assigned at Male 11/28 NA [employer] [employer] C Blood C Blood Final:No growth at 5 days.Sex assigned at :Male 11/28 [employer] [employer] C Blood C Blood Final:No growth at 5 days.Sex assigned at :Male 11/28 [employer] [employer] Diagnostic Reports Report Value Date Source Chest [...] Jo MD on 12/01/2021 06:58 HST 12/01/2021 [facility] 1 Vw Portable PROCEDURE: Chest 1 [...] Collin Simpson on 11/30/2021 10:36 HST 11/30/2021 [place] [address] Vw Portable PROCEDURE: CHEST RAD IOGRAPH, 1 [...] Dubon MD on 11/29/2021 10:40 HST 11/29/2021 [facility] 1 Vw Portable PROCEDURE: CHEST RAD [...] Brown MD on 11/28/2021 05:06 HST 11/28/2021 [facility] Consultation Notes Results Value Date Source [...] on 12/01/2021 06:58 HST Final 12/01/2021 45 [facility] Pulmonology Progress Note Patient: LEANNE JARAMILLO Age: 76 years Legal Sex: MALE : 1945 Subjective 1. Doing better overall 2. Now comfortable on room air 3. No longer have any wheezing 4. Afebrile; no leukocytosis 5. all medications reviewed Objective NOTE: This note was generated with the assistance of a voice dictation system, using the [employer] Edition. Surgical Rn errors may very well be present [...] 0 0 2100 Fluid Balance 4 798 1597 Physical Exam General Appearance: Morbidly obese, elderly [...] Normal strength, No tenderness Integumentary: Warm, Dry, [place], No skin lesions Neurologic: Alert, Oriented, Normal [...] mg/3 mL Neb Soln 3 mL, INH, [id number] Dextrose 50% Inj 50 mL Syr 25 [...] Encourage ambulation Continue DuoNeb every 6 hours gxbcjc-ndy-bshke with addition to AccuPAP Continue with Breo [...] of unspecified lower extremity, I82.409) 5. Anticoagulated (correction (current) use of anticoagulants, Z79.01) 6. Morbid [...] Chest Physiotherapy Incentive Spirometry [facility] O[facility] Continuous Pulse Oximetry Respiratory Therapy Communication Order Updraft Nebulizer Treatment [id number] Male 12/01/2021 [facility] Pulmonology Consultation Patient: LEANNE JARAMILLO Age: [...] shortness of breath. Patient is visiting from [place]. He states symptoms began 2 days ago [...] or vomiting. He apparently is visiting from [place], gotten his influenza vaccine and COVID booster [...] Normal strength, No tenderness Integumentary: Warm, Dry, [place], No skin lesions Neurologic: Alert, Oriented, Normal [...] Encourage ambulation Add DuoNeb every 6 hours gvskiy-azt-thipu with addition to AccuPAP Continue with Breo [...] of unspecified lower extremity, I82.409) 5. Anticoagulated (correction (current) use of anticoagulants, Z79.01) 6. Morbid [...] Cap, ORAL, DAILY DuoNeb, 3 mL, INH, T4JzqzPTwe, PRN flecainide, 50 mg, 0.5 Tab, ORAL, [...] Never. Are you ready to quit? N/A. 60393-7 Male 11/30/2021 [facility] Progress Note Patient: AMY JARAMILLO Age: 76 years Legal Sex: MALE : 1945 Chart is generated by Accreditation Manager, Ivon Valdes, for Dr. Rincon Date [...] mg/3 mL Neb Soln 3 mL, INH, X7UllsNOck Dextrose 50% Inj 50 mL Syr 25 [...] of unspecified lower extremity, I82.409) 5. Anticoagulated (correction (current) use of anticoagulants, Z79.01) 6. Morbid obesity (Morbid (severe) obesity due to excess calories, E66.01) 7. Paroxysmal atrial fibrillation (Paroxysmal atrial fibrillation, I48.0) SOB (shortness of breath) (SOB (shortness of breath), 44427) Plan: Cont breathing treatments Cont steroids started [...] and medical decision making performed by me. 91830-3 Male 11/30/2021 [facility] Progress Note Patient: AMY JARAMILLO Age: [...] mg/3 mL Neb Soln 3 mL, INH, B4AuesOJmi albuterol-ipratrop 3-0.5 mg/3 mL Neb Soln 3 [...] of unspecified lower extremity, I82.409) 5. Anticoagulated (correction (current) use of anticoagulants, Z79.01) 6. Morbid obesity (Morbid (severe) obesity due to excess calories, E66.01) 7. Paroxysmal atrial fibrillation (Paroxysmal atrial fibrillation, I48.0) SOB (shortness of breath) (SOB (shortness of breath), 28088) Plan: Chest x-ray Start Azithromycin Cont breathing treatments Cont steroids Supplemental O2 as needed - goal sat 88-92 Advance care planning including the explanation and discussion of advance directives such as standard forms (with completion of such forms, when performed) by the physician or other qualified health professional; first 30 minutes, sxst-cj-dyij with the patient, family member(s) and/or surrogate. Quality Measures Charting performed by Accreditation Manager, Ivon Valdes, for Dr. Rincon The scribe's documentation has been prepared under my direction and personally reviewed by me in its entirety. I confirm that the note above accurately reflects all work, treatment, and medical decision making performed by me. 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 Patient is visiting from [place]. He states symptoms began 2 days ago [...] HST, N/A DuoNeb: = 3 mL, INH, M9P-Cvnkkuuz, PRN, Wheezing, STAT, NEB AMP, 11/28/21 3:03:00 [...] History. Medical history: All Problems Bronchitis / 48950364 / Confirmed COPD (chronic obstructive pulmonary disease) / 48343708 / Confirmed Deep vein thrombosis (DVT) of lower extremity associated with air travel / 887766869 / Confirmed Pulmonary embolism / 19083497 / Confirmed. Surgical history: Triage Surgical History. [...] method Bed scale Height/Length (cm) 175.6 cm Sophia Body Weight Calculated 71.008 . Oxygen saturation: [...] B Agn Molecular Not Detected Patient From [facility] Area? Yes SARS-CoV-2 Molecular Not Detected [...] treatment plan, Patient indicated understanding of instructions. 75803-6 Male 11/28/2021 [facility] Discharge Summaries Results Value Date Source [...] of unspecified lower extremity, I82.409) 5. Anticoagulated (correction (current) use of anticoagulants, Z79.01) 6. Morbid [...] weeks prior to departing on vacation from [place] that he received his influenza vaccine with [...] other qualified health professional; first 30 minutes, dlal-ph-fezk with the patient, family member(s) and/or surrogate [...] f/u with PCP 1 week Cardiac diet 87126-2 Male 12/01/2021 [facility] History and Physicals Results Value Date Source Admission H & P 11/28/2021 [facility] History and Physical Patient: LIBAN JARAMILLO Age: [...] weeks prior to departing on vacation from [place] that he received his influenza vaccine with [...] other qualified health professional; first 30 minutes, uffg-or-pfym with the patient, family member(s) and/or surrogate [...] (shortness of breath) (SOB (shortness of breath), 72435) Orders: acetaminophen (acetaminophen), 650 mg, ORAL, Q6H, PRN, Pain-Mild (Scale 1-3), TAB, 11/28/21 5:00:00 HST acetaminophen (acetaminophen), 650 mg, ORAL, Q6H, PRN, Fever, TAB, 11/28/21 5:00:00 HST albuterol-ipratropium (DuoNeb), = 3 mL, INH, F0IbflIEof, PRN, Shortness of breath, NEB AMP, 11/28/21 [...] mg, ORAL, DAILY DuoNeb, 3 mL, INH, B4BsqqVGsn, PRN flecainide, 50 mg, 1 Tab, ORAL, [...] smoker, quit more than 30 days ago. 32420-6 Male 11/28/2021 [facility] Vital Signs Vital Sign Value Date Comments Source Peripheral Pulse Rate 94 bpm 12/02/2021 45 [facility] Pulse Oximetry 90 % 12/02/2021 45 [facility] Respiratory rate 18 br/min 12/02/2021 45 [facility] Systolic BP 116 mm[Hg] 12/02/2021 45 [facility] Diastolic BP 69 mm[Hg] 12/02/2021 45 [facility] Mean BP 85 mm[Hg] 12/02/2021 [facility] Temperature (F) 97.8 [degF] 12/02/2021 [facility] Peripheral Pulse Rate 81 bpm 12/01/2021 45 [facility] Pulse Oximetry 92 % 12/01/[address] [facility] Respiratory rate 18 br/min 12/01/2021 45 [facility] Systolic BP 130 mm[Hg] 12/01/2021 45 [facility] Diastolic BP 83 mm[Hg] 12/01/2021 45 [facility] Mean BP 98 mm[Hg] 12/01/2021 45 [facility] Temperature (F) 97.9 [degF] 12/01/2021 45 [facility] Oxygen FiO2 21 % 12/01/2021 45 [facility] Respiratory rate 16 br/min 12/01/2021 45 [facility] Peripheral Pulse Rate 87 bpm 12/01/2021 45 [facility] Pulse Oximetry 93 % 12/01/[address] [facility] [place] Oxygen FiO2 21 % 12/01/2021 45 [facility] Oxygen FiO2 21 % 12/01/2021 45 [facility] Temperature (F) 97.9 [degF] 12/01/2021 45 [facility] Systolic BP 124 mm[Hg] 12/01/2021 45 [facility] Diastolic BP 78 mm[Hg] 12/01/2021 45 [facility] Mean BP 93 mm[Hg] 12/01/2021 45 [facility] Weight (kg) 116.9 kg 12/01/2021 45 [facility] Oxygen flow 1 L/min 12/01/2021 45 [facility] Oxygen flow 1 L/min 11/30/2021 45 [facility] Oxygen flow 1 L/min 11/30/2021 45 [facility] Weight (kg) 116.3 kg 11/30/2021 45 [facility] Weight (kg) 118.3 kg 11/29/2021 45 [facility] HeightLength (cm) 175.6 cm 11/28/2021 [facility] Body Mass Index 38.2 kg/m2 11/28/2021 45 [facility] Dose calculation weight (kg) 117.8 kg 11/28/2021 45 [facility] Heart Rate Monitored 94 bpm 11/28/2021 45 [facility] Heart Rate Monitored 93 bpm 11/28/2021 45 [facility] Heart Rate Monitored 88 bpm 11/28/2021 45 [facility] Apical Heart Rate 94 bpm 11/28/2021 45 [facility] Dose calculation weight (kg) 117.8 kg 11/28/2021 45 [facility] HeightLength (cm) 175.6 cm 11/28/2021 45 [facility] Body Mass Index 38.2 kg/m2 11/28/2021 45 [facility] Sophia Body Weight Calculated 71.008 11/28/2021 45 [facility] Encounters Location Location Details Encounter Type Encounter Number Reason For Visit Attending Provider ADM Date DC Date Status Source [address] [facility] [place] [id number] CHRONIC OBSTRUCTI VE PULMONARY DISEASE (J44.1), INFLUENZA A (J10.1) Elias Kay 11/28 Active [facility] Procedures Procedure Code Date Perfomer Comments Source ROUTINE VENIPUNCTURE 03236 12/01/2021 45 [facility] ROUTINE VENIPUNCTURE 91250 11/30/2021 45 [facility] ROUTINE VENIPUNCTURE 32282 11/29/2021 45 [facility] ROUTINE VENIPUNCTURE 26887 11/28/2021 45 [facility] ROUTINE VENIPUNCTURE 62962 11/28/2021 45 [facility] Plan of Care Plan of Care Date Source Extracted from:Title: Hospit alist Discharge Note Author: MD Kay Tom-Oliver Date: 12/01/21 History of Present Illness 76-year-old male with a medical history notable for DVT, 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 Patient reports 2 weeks prior to?departing on vacation?from [place]?that he received his influenza vaccine with COVID [...] other qualified health professional; first 30 minutes, ugzr-is-cgfe with the patient, family member(s) and/or surrogate FULL CODE ? Discharge Date: ?_ ? Discharge Location: ?_ ? Addendum by MD Rahul, [facility] on December 01 2021 12:57:56 HST [...] plan, Patient indicated understanding of instructions. 12/02/[address] [place] [address] Social History Social History Date Source Social History TypeResponse Smoking Status Is there a smoker in the household? No; *Do you have concerns about tobacco use in household? No; Never (less than 100 in lifetime); Never; *Are you ready to quit? N/A entered on: 11/28/21 Sex Male [address] [place] [address] Social History TypeResponse Smoking Status Is there a smoker in the household? No; *Do you have concerns about tobacco use in household? No; Never (less than 100 in lifetime); Never; *Are you ready to quit? N/A entered on: 11/28/21 Sex Male [address] [place] [address] Social History TypeResponse Smoking Status Is there a smoker in the household? No; *Do you have concerns about tobacco use in household? No; Never (less than 100 in lifetime); Never; *Are you ready to quit? N/A entered on: 11/28/21 Sex Male [address] [place] [address]
--- OUTSIDE RECORDS SUMMARY | 2024-03-13 13:36 | XMS_ITS | Encounter Summary ---
Author Organization [facility] Address [address] [place] [address] Care Team Providers Care Dress Draper Name Role Phone Evelyn Valdez MD Primary Care Prov ider Encounter Details Date Type Department Care Team ([facility] Contact Info) Description 02/06/2024 Telephone Adult Medicine - [place] [address] [place] [phone] Evelyn Valdez MD [address] [place], [place] [phone] Social History Tobacco Use Types Packs/Day Years [...] care for your loved ones. For example, children's program coordinator or elderly care for an older adult? [...] on file documented as of this encounter Plan of Treatment Upcoming Encounters Date Type Department Care Team (Late st Contact Info) Description 03/17/2024 2:45 PM EST Office Visit Adult Medicine [facility] [address] [place] [address] Evelyn Valdez MD [address] [place] [address] 03/19/2024 1:45 PM EST Office Visit Orthopedic Surgery - [place] [address] [phone] Donny Hughes, DPM 175 [facility] [address] [place] [address] 03/23/2024 1:[address] Scan [address] [address] documented as of this encounter Visit Diagnoses [...] documented as of this encounter Care Teams Dress Draper Relationship Specialty Start Date End Date Evelyn Valdez MD [address] [place] [address] PCP - General Internal Medicine 12/09/18 documented as of this encounter
--- OUTSIDE RECORDS SUMMARY | 2024-03-13 13:36 | XMS_ITS | Data Portability ---
Author Organization [place] [facility] Address [address] [place] [phone] Assessment Encounter Date Assessment Date Assessment LastModified [...] abnormal oxygen saturation, and increased breathing effort [facility] was contacted. Supplemental oxygen was administered until EMS arrived. Verbal and written report given to [facility]. Time On Scene with Patient: 01:05:55 - Emergent 911 transport: Patient is critically ill and required immediate transport by a 911/emergency vehicle due to critical illness requiring immediate intervention [id number] Not available 02/12/2022 09:40:35 Plan of Treatment Reminders Order Date Submit Date Provider Last Modified By Organization Details Last Modified Time Details Appointments None recorded. Lab rapid SARS CoV 2 Ag, QL IA, respiratory specimen 2021 022 stephen z783 [facility], [address] [place] [address], [phone], 16:28:01 Referral None recorded. Procedures None recorded. Surgeries None recorded. Imaging None recorded. Medication Orders None recorded. Patient TargetsNo targets recorded. Patient Instructions Encounter Date Encounter Id Patient Instructions Last Modified By Organization Details Last Modified Time 02/06/2022 [id number] shortness of breath: care instructions 3 Not available 02/06/2022 16:01:31 [facility] you [facility] yo [facility]. We cannot always find the exact [...] condition between 8am-10pm, please call [facility] at [phone] to help navigate your care. [email or web address] 3 Not available 02/07/2022 20:23:27 Reason for Referral None Reported. Results Created Date Observation Date Name Description Value Unit Range Abnormal Flag Note LastModifiedBy Organization Detail LastModifiedTime 02/07/20 22 02/06/2022 rapid SARS CoV 2 Ag, QL IA, respi rator y speci men Covid-19 (ref: neg) negati ve Not Available [facility] [address] [place], [address], 02/06/2022 16:02:13 02/07/20 22 02/06/2022 rapid SARS CoV 2 Ag, QL IA, respi rator y speci men Control Visual ized/V alid Not Available [facility] [address] [place], [address], 02/06/2022 16:02:13 02/07/20 22 02/06/2022 rapid SARS CoV 2 Ag, QL IA, respi rator y speci men Location [facility], [facility] Vivian keenan [facility], [address] [place] [address], [id number] Not Available [facility] [address] [place], [address], 02/06/2022 16:02:13 Result Notes None recorded. Medical Equipment None Reported. Allergies Allergen ID Allergen Name Allergen Category Reaction Reaction Severity Criticality Documentation Date Start Date Code Code System Note Provider Name and Address Organization Details Recorded Time 979187 Augmentin medicatio n Not available Not available Not available 02/06/2022 11513 2 RxNorm August JOSE Gu [address] [place], [address], [place] [facility] 15:54:26 Medications Name Sig Start Date Stop [...] Not Available Vitals Date Recorded Body temperature Provider Name a nd Address Organization Details Last Updated DateTime 02/07/2022 100.2 [degF] Adrienne Gu NP [address] [place], [address], [place] [facility] 02/07/2022 20:28:37 Date Recorded Respiratory rate Provider Name a nd Address Organization Details Last Updated DateTime 02/07/2022 24 /min Adrienne Gu NP [address], [place], [address], [place] [facility] 02/07/2022 20:28:54 Date Recorded Oxygen saturation Oxygen saturation in Arterial blood by Pulse oximetry Provider Name and Address Organization Details Last Updated DateTime 02/07/2022 89 % 89 % Adrienne Gu NP [address], [place], [address], [place] [facility] 02/07/2022 20:28:44 Date Recorded Heart rate Provider Name an d Address Organization Details Last Updated DateTime 02/07/2022 77 /min August JOSE Gu [address] [place], [address], [place] [facility] 02/07/2022 20:29:01 Date Recorded Systolic blood pressure Diastolic blood pressure Provider Name and Address Organization Details Last Updated DateTime 02/07/2022 142 mm[Hg] 78 mm[Hg] August JOSE Gu [address] [place], [address], [place] [facility] 02/07/2022 20:29:19 Social History None recorded. Functional Status [...] Diagnosis/Indication Diagnosis SNOMED-CT Code Diagnosis ICD10 Code Diagnosis Note [id number] August JOSE Gu [facility] [address] [place] [address] 02/06/2022 15:51:42 02/13/2022 11:31:27 Dyspnea at rest 391226460 R06.00 Acute hypo xemic respiratory failure [id number] J96.01 Health Concerns Section Related Observation LastModified by Organization Detai ls LastModified Time None Recorded Concern Status LastModified by Organization Details LastModified Time None Recorded Advance Directives Directive None Recorded Payers Encounter Date Sequence Insurance Name Policy Number Policy Contreras Covered Member ID Contreras Member ID Guarantor Name 02/06/2022 2 [place] [employer] Jay Gonzales [id number] Jay Gonzales 02/06/2022 1 [facility] (MEDICARE REPLACEMENT/A DVANTAGE - PPO) [id number] Jay Gonzales [id number] Jay Gonzales Notes Date Note Type Note [...] diagnosed with influenza and pneumonia in November. August JOSE Gu [address], [place], [address], [place] [facility] 02/12/2022 09:40:47
--- OUTSIDE RECORDS SUMMARY | 2024-03-13 13:37 | XMS_ITS | Encounter Summary ---
Author Organization [facility] Address [address] [place] [address] Care Team Providers Care Clinique Counter Manager Name Role Phone Evelyn Valdez MD Primary Care Prov ider Encounter Details Date Type Department Care Team ([facility] st Contact Info) Description 02/19/2024 Telephone Adult Medicine - [place] [address] [place] [phone] Evelyn Valdez MD [address] [place], [place] [phone] Social History Tobacco Use Types Packs/Day Years [...] your loved ones. For example, child care center assistant director or elderly care for an older adult? [...] as of this encounter Progress Notes * Lyle Concepcion RN - 02/19/2024 8:48 AM EST Pt states that he has been having left side face pain , pt states that it starts at the ear and goes down , pt states that this has been for a couple of weeks , appointment schedueld * Tammy Avila - 02/19/2024 8:38 AM EST Patient call requires triage: Symptoms patient is presenting: left side facial soreness How long has patient had these symptoms?: on and off since 02/02 For ALL patients calling to schedule any appointment (routine, sick visit, follow up, consult, etc.) in the outpatient setting please ask the following questions: Do you have fever of higher than 101, sore throat with difficulty swallowing or severe shortness ofbreath? no If YES to any of these above symptoms, send a message to triage and do not book. Red dot. If no, an audio or video visit should be booked. Have you had close contact with someone with Coronavirus in the last 14 days? no Have you traveled abroad? no Have you traveled recently to another state outside of [place], [place], [place], [place], [place], [place], [place]? no o If yes, did you quarantine for 14 days or have a negative covid test? no If yes to any of the above, patient is not to be scheduled in office until after 14 day quarantine or negative covid test. If pain or injury related was it due to an accident at work or from a motor vehicle accident? If yes, date of accident/Injury: No If yes, gather 3rd republican insurance information Third Libertarian Information: not applicable PCP: Evelyn Valdez MD Payor: [facility] MEDICARE / Plan: [facility] MEDIC[facility]VANTAGE / Product Type: *No Product type* / documented in this encounter Plan of Treatment Upcoming Encounters Date Type Department Care Team (Late st Contact Info) Description 03/17/2024 2:45 PM EST Office Visit Adult Medicine - [place] [address] [place] [address] Evelyn Valdez MD [address] [place] [address] 03/19/2024 1:45 PM EST Office Visit Orthopedic Surgery - [place] [address] [phone] Donny Hughes DPM 175 [facility] [address] [place] [address] 03/23/2024 1:[address] Scan - [address] [address] documented as of this encounter Visit Diagnoses Not on filedocumented in this encounter Additional Health Concerns Assessment Noted Time PHQ-9 Depression Total Score: 0 01/06/20 1:14 PM EST A fall risk assessment has been complete d for the patient 01/06/2024 1:11 PM EST documented as of this encounter Care Teams Clinique Counter Manager Relationship Specialty Start Date End Date Evelyn Valdez MD [address] [place] [address] PCP - General Internal Medicine 12/09/18 documented as of this encounter
--- OUTSIDE RECORDS SUMMARY | 2024-03-13 13:37 | XMS_ITS | Encounter Summary ---
Author Organization [facility] Address [address] [place] [address] Care Team Providers Care Belt Measurer Name Role Phone Evelyn Valdez MD Primary Care Prov ider Reason for Visit * Reason Onset Date Comments URI 02/27/2024 Wheezing 02/27/2024 Encounter Details Date Type Department Care Team ([facility] st Contact Info) Description 02/27/2024 Telephone Adult Medicine [facility] [address] [place] [id number] Leonardo Swenson PA [address] [place] [address] URI; Wheezing Social History Tobacco Use Types Packs/Day Years [...] ed Within the last 3 months, catherine w many times did you visit the [...] care for your loved ones. For example, director child development center or elderly care for an older adult? [...] as of this encounter Progress Notes * Azalea Newell RN - 02/28/2024 8:40 AM EST Spoke with Deanna, notified of below. Reports he is a little better today but is willing to go andwill go to ER if continues/worsens. * MECCA Busch - 02/27/2024 5:39 PM EST With his pneumonia I would recommend he get seen at the emergency department due to the possibilityof this turning out poorly. His CAT scan is not scheduled for several more weeks and he needs this done to see if there is any other process happening here. With the failure of outpatient antibioticshe likely needs IV antibiotics so again, hospital is very strongly recommended. I would try to squeeze him in but they somehow messed my schedule up to the point where I have 3 extra spots that should not even be there tomorrow. * Azalea Newell RN - 02/27/2024 5:00 PM EST Spoke with Deanna On ceftin and doxy. Finished 5 days of prednisone 40. Was feeling better on prednisone but now is done with that Taking mucinex and cough is productive now. Sputum is yellow. CPAP at night seems to be regulating more Nebulizer Q 4 hours is helping. Using his breathing apparatus as well which helps Right wrist pain as well starting today Asking if might need change of antibiotic or more prednisone. Asking for another appointment. There are no available appointments tomorrow in [place]. Will forward to provider for review * Lyle Concepcion RN - 02/27/2024 4:55 PM EST Does not accept block alka * Francoise Bowers - 02/27/2024 4:48 PM EST Patient call requires triage: Symptoms patient is presenting: Oneal saw him 02/18. wheezing/purring sound, feels sick and tired, coughing. No fever, no diarrhea/vomiting. He is on antibiotics for 2 more days but still not improving.O2 is 94. How long has patient had these symptoms?: ongoing since 02/18 For ALL patients calling to schedule any [...] recently to another state outside of [place], [place], [place], [place], [place], [place], [place]? no o If yes, did you quarantine [...] of accident/Injury: No If yes, gather 3rd alliance party insurance information Third Constitution Party Information: not applicable PCP: Evelyn Valdez MD Payor: [employer] MEDICARE / Plan: [facility] MEDICARE ADVANTAGE / Product Type: *No Product type* / documented in this encounter Plan of Treatment Upcoming Encounters Date Type Department Care Team (Late st Contact Info) Description 03/17/2024 2:45 PM EST Office Visit Adult Medicine - [place] [address] [place] [phone] Evelyn Valdez MD [address] [place] [address] 03/19/2024 1:45 PM EST Office Visit Orthopedic Surgery - [place] [address] [id number] Donny Hughes DPM [address] [address] 03/23/2024 1:[address] Scan - [place] [address] [place] [phone] documented as of this encounter Visit Diagnoses Not on filedocumented in this encounter Additional Health Concerns Infection Onset Date Last Indicated Resolved Time RSV 02/19/2024 02/19/2024 Assessment Noted Time PHQ-9 Depression Total Score: 0 01/06/20 24 1:14 PM EST A fall risk assessment has been complete d for the patient 01/06/2024 1:11 PM EST documented as of this encounter Care Teams Belt Measurer Relationship Specialty Start Date End Date Evelyn Valdez MD [address] [place] [id number] PCP - General Internal Medicine 12/09/18 documented as of this encounter
--- NOTE | 2024-03-13 13:53 | MHC.OFFVISCO ---
Intake Intake Visit Reasons: Anticoagulation Allergies albuterol Adverse Reaction (Intermediate, Verified 03/13/24 13:44) Palpitations amoxicillin [From Augmentin] Adverse Reaction (Intermediate, Verified 03/13/24 13:44) Nausea and Vomiting, dizziness clavulanic acid [From Augmentin] Adverse Reaction (Intermediate, Verified 03/13/24 13:44) Nausea and Vomiting, dizziness Medication List - Last Reconciled 03/13/24 by Lottie Avila RN acetaminophen 1,000 mg PO Q6H PRN acetazolamide 250 mg PO DAILY atorvastatin 20 mg PO DAILY azithromycin 250 mg PO MOWEFR cefpodoxime 200 mg PO Q12H 5 days diltiazem HCl CD 120 mg PO DAILY docusate sodium 200 mg PO DAILY doxycycline monohydrate 100 mg PO BID 5 days flecainide 100 mg PO Q12H fluticasone propion-salmeterol 250-50 mcg/dose (Wixela Inhub) 1 inh inhalation Q12H 30 days furosemide 40 mg PO BEDTIME furosemide 80 mg PO DAILY levalbuterol HCl 1.25 mg (0.5 mL) inhalation RQ4H WHILE AWAKE 90 days levalbuterol tartrate 45 mcg/actuation 2 puffs inhalation Q4-6H PRN 30 days multivitamin 1 tab PO DAILY potassium chloride ER 10 mEq PO DAILY prednisone See Taper mg PO DIRECTED sennosides (senna) 25.8 mg PO BEDTIME warfarin 5 mg See Protocol PO MOTUTHFRSA warfarin 7.5 mg See Protocol PO SUWE warfarin See Protocol 7.5 mg orally 7.5 X 4 DAYS/ 5MG X 3 DAYS; Nursing Note INR: 2.5 in therapeutic range of 2-3 Pt states he feels much better after having pneumonia and RSV. States he completed antibiotic course and is still taking tapering dose of prednisone. Medications and supplements reviewed: No other changes No changes in health, diet, medications, or supplements, Denies any signs and symptoms of bleeding or bruising or clotting. Bleeding, bruising, clotting discussed Nutritional guidance given to have extra greens this week 1-2 servings Dose: 5mg X 5 days and 7.5mg X 2 days F/U INR: 1 week Patient verbalizes understanding of instructions with read back given Anti-Coag Initial Assessment Social Hx Patient Tobacco Use Status: Former Tobacco user alcohol intake: current Alcohol intake frequency: holidays/special occasions only Coding Level of Care Code Est Patient Level 1 Diagnoses Current use of anticoagulant therapy Z79.01 Results AMB INR Fingerstick AMB INR Fingerstick 2.5 Last Edit by Lottie Avila RN on 03/13/24 13:49 interface delay Assessment & Plan Assessment & Plan (1) Current use of anticoagulant therapy: Code(s): Z79.01 - equipment operator intermodal yard (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
[2024-03-13 13:56] LABS: Prothrombin Time Whole Bld POC 29.9 sec (11.1-13.5); ~PT, ~INR - Anti Coag Clinic 2.5 (0.9-1.1)
== END 2024-03-13 13:56 | disposition home or self-care (01) ==
LOC: HO.ACS 13:23
PROVIDERS: PCP Internal Medicine; Visit Provider Internal Medicine
DX: Z79.01 Long term (current) use of anticoagulants (principal)

== ENCOUNTER 2024-03-20 13:49 | Outpatient (AMB) | payer MEDICARE, SELFPAY ==
--- NOTE | 2024-03-20 14:46 | MHC.OFFVISCO ---
Intake Intake Visit Reasons: Anticoagulation Allergies albuterol Adverse Reaction (Intermediate, Verified 03/20/24 14:30) Palpitations amoxicillin [From Augmentin] Adverse Reaction (Intermediate, Verified 03/20/24 14:30) Nausea and Vomiting, dizziness clavulanic acid [From Augmentin] Adverse Reaction (Intermediate, Verified 03/20/24 14:30) Nausea and Vomiting, dizziness Medication List - Last Reconciled 03/20/24 by Chaya Yarbrough RN acetaminophen 1,000 mg PO Q6H PRN acetazolamide 250 mg PO DAILY atorvastatin 20 mg PO DAILY azithromycin 250 mg PO MOWEFR diltiazem HCl CD 120 mg PO DAILY docusate sodium 200 mg PO DAILY flecainide 100 mg PO Q12H fluticasone propion-salmeterol 250-50 mcg/dose (Wixela Inhub) 1 inh inhalation Q12H 30 days furosemide 40 mg PO BEDTIME furosemide 80 mg PO DAILY levalbuterol HCl 1.25 mg (0.5 mL) inhalation RQ4H WHILE AWAKE 90 days levalbuterol tartrate 45 mcg/actuation 2 puffs inhalation Q4-6H PRN 90 days multivitamin 1 tab PO DAILY potassium chloride ER 10 mEq PO DAILY sennosides (senna) 25.8 mg PO BEDTIME warfarin See Protocol 7.5 mg orally 7.5 X 4 DAYS/ 5MG X 3 DAYS; Nursing Note INR 3.2 S/P?ANTBX AND STEROID TREATMENT- MAY BE RESON FOR SLIGHTLY ELEVATED INR Medications and supplements reviewed Patient status: FINALLY FEELING BETTER Medications or supplements: MAY RESUME LOW DOSE STEROID WAITING TO TALK TO PCP Diet: GOOD Denies any signs and symptoms of bleeding or clotting or unusual bruising Bleeding, bruising, clotting discussed Nutritional guidance given: CONT TO EAT A MIX OF FRUITS AND VEGETABLES Dose: 7.5MG X 2 DAYS/ 5MG X 5 DAYS - MAY NEED TO INCREASE DOSE NEXT VISIT F/U INR Date : 03/31/24 ?? Patient verbalizing understanding of instructions given. 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
[2024-03-20 14:59] LABS: Prothrombin Time Whole Bld POC 38.6 sec (11.1-13.5); ~PT, ~INR - Anti Coag Clinic 3.2 (0.9-1.1)
== END 2024-03-20 14:49 | disposition home or self-care (01) ==
PROVIDERS: PCP Internal Medicine; Visit Provider Internal Medicine
DX: Z79.01 Long term (current) use of anticoagulants (principal)

== ENCOUNTER → 2024-03-20 13:49 | Outpatient (BNVA) | payer MEDICARE, SELFPAY | PROVIDERS: PCP Internal Medicine; Visit Provider Internal Medicine | DX: I48.19 Other persistent atrial fibrillation (principal); Z86.718 Personal history of other venous thrombosis and embolism; Z79.01 Long term (current) use of anticoagulants | CPT/HCPCS: 85610; 99211 ==

== ENCOUNTER 2024-04-17 13:14 | Outpatient (AMB) | payer MEDICARE, SELFPAY ==
[2024-04-17 13:27] LABS: Prothrombin Time Whole Bld POC 30.6 sec (11.1-13.5); ~PT, ~INR - Anti Coag Clinic 2.6 (0.9-1.1)
--- NOTE | 2024-04-17 13:29 | MHC.OFFVISCO ---
Intake Intake Visit Reasons: Anticoagulation Allergies albuterol Adverse Reaction (Intermediate, Verified 04/17/24 13:22) Palpitations amoxicillin [From Augmentin] Adverse Reaction (Intermediate, Verified 04/17/24 13:22) Nausea and Vomiting, dizziness clavulanic acid [From Augmentin] Adverse Reaction (Intermediate, Verified 04/17/24 13:22) Nausea and Vomiting, dizziness Medication List - Last Reconciled 04/17/24 by Lottie Avila RN acetaminophen 1,000 mg PO Q6H PRN acetazolamide 250 mg PO DAILY atorvastatin 20 mg PO DAILY azithromycin 250 mg PO MOWEFR diltiazem HCl CD 120 mg PO DAILY docusate sodium 200 mg PO DAILY flecainide 100 mg PO Q12H fluticasone propion-salmeterol 250-50 mcg/dose (Wixela Inhub) 1 inh inhalation Q12H 30 days furosemide 40 mg PO BEDTIME furosemide 80 mg PO DAILY levalbuterol HCl 1.25 mg (0.5 mL) inhalation RQ4H WHILE AWAKE 90 days levalbuterol tartrate 45 mcg/actuation 2 puffs inhalation Q4-6H PRN 90 days multivitamin 1 tab PO DAILY potassium chloride ER 10 mEq PO DAILY sennosides (senna) 25.8 mg PO BEDTIME warfarin See Protocol 7.5 mg orally 7.5 X 4 DAYS/ 5MG X 3 DAYS; Nursing Note INR: 2.6 in therapeutic range of 2-3 Medications and supplements reviewed No changes in health, diet, medications, or supplements, Denies any signs and symptoms of bleeding or bruising or clotting. 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
--- OUTSIDE RECORDS SUMMARY | 2024-04-17 14:51 | XMS_ITS | Encounter Summary ---
Author Organization [facility] Address [address] [place] [address] Care Team Providers Care Inspector [employer]ric[employer] Name Role Phone Evelyn Valdez MD Primary Care Prov ider Reason for Visit * Reason Comments Fall Encounter Details Date Type Department Care Team ([facility] st Contact Info) Description 03/30/2024 12:30 PM EST Office Visit Adult Medicine - [address] [phone] Ashish Medeiros, MECCA [address] [place] [phone] Pain and swelling of right knee (Primary Dx); Fall, initial encounter; Chronic deep vein thrombosis (DVT) of proximal vein of right lower extremity (CMS/HCC) Social History Tobacco Use Types Packs/Day Years [...] for your loved ones. For example, child welfare caseworker or elderly care for an older adult? [...] Recorded Sex Assigned at Not on file Legal Sex Male 3:18 PM EST Gender Identity Not on file Sexual Orientation Not on file Occupation Industry Job Start Date Job End Date RETIRED Not on file Not on file Not on file documented as of this encounter Last Filed Vital Signs Vital Sign Reading Time Taken Comments Blood Pressure 103/56 03/30/2024 12:29 PM EST Pulse 87 03/30/2024 12:29 PM EST Temperature 36.3 ??C (97.4 ??F) 03/30/2024 12:[address] Respiratory Rate - - Oxygen Saturation 93% 03/30/2024 12:29 PM EST Inhaled Oxygen Concentration - - Weight 112 kg (248 lb) 03/30/2024 12:29 PM EST Height 175.3 cm (5' 9 ) 03/30/2024 12:29 PM EST Body Mass Index 36.62 03/30/2024 12:29 PM EST documented in this encounter Ordered Prescriptions Prescription Sig Dispense Quantity Refills Last Filled Start Date End Date cephalexin (KEFLEX) 500 mg capsuleIndications :Pain and swelling of right knee Take 1 capsule (500 mg total) by mouth 2 (two) times a day for 7 days. 14 each 03/30/2024 documented in this encounter Progress Notes * MECCA Saab - 03/30/2024 12:30 PM EST SUBJECTIVE: Jay Gonzales is a 78 y.o. male who presents today for Chief Complaint Patient presents with Fall HPI: I am meeting Jay for the first time today. Pt of Dr. Espinoza. Presents after a fall. Here with today. Patient states was out getting pizza over the weekend and they had cardboard down on the ground to prevent the floors from getting wet due to the snow outside. Patient slept and fell forward and landed on his right knee. Denies head strike or loss of consciousness. He has significant bruising and swelling to the right knee with pain. He has history of atrial fibrillation, PE, chronic DVT on Coumadin. States has been icing it. tells me patient had a low-grade fever the other day. Prolonged sitting causes it to get stiff and increase his pain but he is able to walk on it and that helps. Denies any sensory deficit. Current Meds: Current Outpatient Medications: acetaZOLAMIDE (DIAMOX) 250 mg tablet, , Disp: , Rfl: atorvastatin (LIPITOR) 20 mg tablet, Take 1 tablet (20 mg total) by mouth 1 (one) time each day., Disp: 90 each, Rfl: 1 dilTIAZem CD (CARDIZEM CD) 120 mg 24 hr capsule, TAKE 1 CAPSULE BY MOUTH DAILY, Disp: 100 capsule, Rfl: 1 docusate sodium (COLACE) 100 mg capsule, Take 100 mg by mouth., Disp: , Rfl: flecainide (TAMBOCOR) 50 mg tablet, Take 2 tablets (100 mg total) by mouth 2 (two) times a day., Disp: , Rfl: fluticasone propion-salmeteroL (Wixela Inhub) 500-50 mcg/dose diskus inhaler, Inhale 1 Puff into the lungs 2 Times Daily., Disp: , Rfl: furosemide (LASIX) 40 mg tablet, Take 1 tablet (40 mg total) by mouth 2 (two) times a day. 2 pills am 1 pill QHS, Disp: , Rfl: levalbuterol (XOPENEX) 1.25 mg/3 mL nebulizer solution, INHALE 1.25 MG (0.5 ML) EVERY 4 HOURS WHILEAWAKE FOR COPD FOR 30 DAYS, Disp: , Rfl: MULTIVITAMIN ORAL, Take 1 tablet by mouth 1 (one) time each day., Disp: , Rfl: potassium chloride (KLOR-CON M10) 10 mEq CR tablet, TAKE 1 TABLET BY MOUTH DAILY, Disp: 90 tablet, Rfl: 3 predniSONE (DELTASONE) 10 mg tablet, TAKE 4 TABS DAILY FOR 3 DAYS. 3TABS DAILY FOR 3 DAYS 2TABS DAILY FOR 3 DAYS 1TAB DAILY FOR 3 DAYS, Disp: , Rfl: senna (SENOKOT) 8.6 mg tablet, Take 3 Tabs by mouth at bedtime for 360 days., Disp: , Rfl: warfarin (COUMADIN) 5 mg tablet, Saturday and Wednesdays 7.5mg, all other days takes 5mg, Disp: , Rfl: cephalexin (KEFLEX) 500 mg capsule, Take 1 capsule (500 mg total) by mouth 2 (two) times a day for 7 days., Disp: 14 each, Rfl: 0 Allergies: Allergies Allergen Reactions Amoxicillin-Pot Clavulanate Immunizations: Immunization History Administered Date(s) Administered COVID-19 (Pfizer/ComirPer Vices) 12yo and older 11/25/2023 Influenza trivalent, 0.5mL (Fluzone High-dose) 65yo and older 11/15/2022 Influenza trivalent, with preservative (Fluzone; Afluria) 6mo and older 11/01/2021 Moderna (age 6mo & older) Bivalent, COVID-19, 0.5 mL or 0.25 mL dosage 11/01/2021 Moderna SARS-CoV-2 COVID-19, mRNA, LNP-S, preservative free 03/05/2020, 04/13/2020, 05/05/2021 Pfizer SARS-CoV-2 COVID-19, mRNA, LNP-S, preservative free 11/15/2022 Pneumococcal conjugate 13 valent (Prevnar 13, PCV13) 2mo and older 11/12/2014 Pneumococcal polysaccharide 23 valent (Pneumovax 23) 2yo and older 10/27/2012 Tdap Tetanus diptheria acellular pertussis (Boostrix; Adacel) 7yo and older 06/25/2011, 12/16/2023 Zoster recombinant (Shingrix) 19yo and older 09/14/2018, 11/14/2018 Active Problems: Patient Active Problem List Diagnosis Adrenal adenoma Aortic valve stenosis with insufficiency Benign prostatic hyperplasia Atelectasis, left Chronically elevated hemidiaphragm COPD (chronic obstructive pulmonary disease) (CMS/HCC) Diastolic dysfunction, left ventricle Diastolic heart failure (CMS/HCC) Diverticulosis GERD (gastroesophageal reflux disease) HDL lipoprotein deficiency Hematuria Hepatic cyst Hypercholesterolemia Hyperglycemia Hypertension Vascular disease Ischemic cardiomyopathy Metabolic syndrome DEREK and COPD overlap syndrome (CMS/HCC) Paroxysmal atrial fibrillation (CMS/HCC) Pulmonary embolism (CMS/HCC) RBBB (right bundle branch block with left anterior fascicular block) Renal cyst Severe obesity (BMI 35.0-39.9) with comorbidity (CMS/HCC) Stasis edema, bilateral Vitamin D deficiency Chronic deep vein thrombosis (DVT) of lower extremity (CMS/HCC) HISTORY: Past Medical History: Diagnosis Date Adrenal adenoma 04/10/2016 DX:Adrenal adenoma Aortic valve stenosis with insufficiency 06/25/2011 DX:Aortic valve stenosis with insufficiency; COMMENT: Echo 05/25/11 mild AMS, 2+ AI, mild rheumatic changes in mitral valve Atelectasis, left 12/12/2018 DX:Atelectasis, left Atrial flutter (CMS/HCC) 12/11/2018 DX:Atrial flutter (HCC); COMMENT: On warfarin Benign prostatic hyperplasia 11/03/2010 DX:Benign prostatic hyperplasia; COMMENT: Dr Portillo Chronically elevated hemidiaphragm 12/12/2018 DX:Chronically elevated hemidiaphragm COPD (chronic obstructive pulmonary disease) (CMS/HCC) 12/12/2018 DX:COPD (chronic obstructive pulmonary disease) (HCC); COMMENT: Moderately severe Diastolic dysfunction, left ventricle 06/30/2021 DX:Diastolic dysfunction, left ventricle; COMMENT: 06/30/2021 Dr. Elijah Olivas cardiology. No clinical signs central venous congestion. Medical therapy and pulmonary optimization with increased physical activity and breathing exercises recommended. Diverticulosis 09/22/2010 DX:Diverticulosis; COMMENT: Past historic diverticulitis DVT, recurrent, lower extremity, chronic 06/19/2012 DX:DVT, recurrent, lower extremity, chronic GERD (gastroesophageal reflux disease) 09/22/2010 DX:GERD (gastroesophageal reflux disease); COMMENT: Upper endoscopy reportedly nl 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 DX:HDL lipoprotein deficiency Hematuria 11/14/2010 DX:Hematuria; COMMENT: 02/16, sees Dr Portillo, ct abd with kidney cysts, atypical cells in urine cytology, cystoscopy 03/23/05 nl, neg urine cytology 05/01/10 Hemorrhagic pericardial effusion 12/12/2018 DX:Hemorrhagic pericardial effusion; COMMENT: 10/2016 Cardiac tamponade secondary to hemorrhagic pericardial effusion Hepatic cyst 11/14/2010 DX:Hepatic cyst; COMMENT: Seen abd cat scan 11/17 History of rheumatic fever as a child 12/12/2018 DX:History of rheumatic fever as a child Hypercholesterolemia 09/22/2010 DX:Hypercholesterolemia Hyperglycemia 11/03/2010 DX:Hyperglycemia Hypertension 09/22/2010 DX:Hypertension Ischemic cardiomyopathy 06/25/2011 DX:Ischemic cardiomyopathy; COMMENT: Echo 05/25/11, mild to moderate left ventricular systolic dysfunction, mildly reduced diastolic relaxation, wall motion abnormalities and apical septum and inferior base, sees Dr. Johnson Metabolic syndrome 11/03/2010 DX:Metabolic syndrome Pulmonary embolism (CMS/HCC) 09/22/2010 DX:Pulmonary embolism (HCC); COMMENT: DVT right leg 1989, PE and DVT recurrent 02/1990, rajat filter placed. Anticoagulation- warfarin 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/2010 DX:RBBB (right bundle branch block with left anterior fascicular block); COMMENT: EKG 03/2007 Renal cyst 11/14/2010 DX:Renal cyst; COMMENT: Seen abd cat scan 11/17 Severe obesity (BMI 35.0-39.9) with comorbidity (CMS/HCC) 08/08/2016 DX:Severe obesity (BMI 35.0-39.9) with comorbidity (HCC) Stasis edema, bilateral 09/23/2010 DX:Stasis edema, bilateral Vitamin D deficiency 12/12/2018 DX:Vitamin D deficiency Past Surgical History: Procedure Laterality Date APPENDECTOMY 07/05/2015 PROCEDURE: HISTORICAL APPENDECTOMY APPENDECTOMY PROCEDURE: TN APPENDECTOMY CARDIAC CATHETERIZATION 10/22/2016 PROCEDURE: HISTORICAL CARDIAC CATH; COMMENT: Non obstructive CAD-mild disease COLONOSCOPY 02/09/2011 PROCEDURE: HISTORICAL COLONOSCOPY; COMMENT: normal CYSTOSCOPY 2005 PROCEDURE: HISTORICAL CYSTOSCOPY; COMMENT: Nml HERNIA REPAIR 07/05/2015 PROCEDURE: HISTORICAL HERNIA REPAIR/UMB OTHER SURGICAL HISTORY 1990 PROCEDURE: HISTORY OTHER; COMMENT: rajat filter, guidewire left in place in IVC due to it being stuck (per patient) OTHER SURGICAL HISTORY 04/08/2007 PROCEDURE: HISTORY OTHER; COMMENT: excision hemorrhagic right vocal cord polyp, microlaryngoscopy OTHER SURGICAL HISTORY 10/22/2016 PROCEDURE: HISTORY OTHER; COMMENT: Removal of retained remnants of guidewire pieces,1 done while onCardiopulmonary bypass.Dr Deras OTHER SURGICAL HISTORY 02/2018 PROCEDURE: HISTORY OTHER; COMMENT: Cardioversion OTHER SURGICAL HISTORY Right 09/28/2021 PROCEDURE: TN ENDOVEN ABLTJ INCMPTNT VEIN XTR LASER 1ST VEIN; COMMENT: Dr. Wall Family History Problem Relation Name Age of Onset COPD Mother Multiple strokes Lung cancer Father No Known Problems Sister No Known Problems Sister No Known Problems Daughter No Known Problems Son Social History Socioeconomic History Marital status: Spouse name: Not on file Number of children: 2 Years of education: Not on file Highest education level: Not on file Occupational History Occupation: RETIRED Tobacco Use Smoking status: Former Current packs/day: 0.00 Types: Cigarettes Quit date: 03/14/1989 Years since quittin.0 Smokeless tobacco: Former Vaping Use Vaping status: Never Used Substance and Sexual Activity Alcohol use: Yes Comment: rarely Drug use: No Sexual activity: Not on file Other Topics Concern Not on file Social History Narrative Patient lives with and daughter and great grandson. REVIEW OF SYSTEMS: Pertinent items are noted in HPI. VITAL SIGNS Vitals: 02/17/25 1229 BP: 103/56 BP Location: Right arm Pulse: 87 Temp: 36.3 ??C (97.4 ??F) TempSrc: Temporal SpO2: 93% Weight: 112 kg (248 lb) Height: 1.753 m (69 ) Body mass index is 36.62 kg/m??. Body surface area is 2.26 meters squared. PHYSICAL EXAM: EXTREM: Significant edema, ecchymosis, warmth, tenderness palpation to the right knee. He is exquisitely tender to palpation diffusely on exam. There are some fluid filled bullae as well overlying the knee. LUNGS: Clear to auscultation bilaterally without wheezes, rales, rhonchi. ASSESSMENT/PLAN: Jay was seen today for fall. Diagnoses and all orders for this visit: Pain and swelling of right knee (Primary) - CBC and differential; Future - C-reactive protein; Future - XR Knee 3 Views Right; Future - cephalexin (KEFLEX) 500 mg capsule; Take 1 capsule (500 mg total) by mouth 2 (two) times a day for 7 days. Fall, initial encounter - CBC and differential; Future - C-reactive protein; Future - XR Knee 3 Views Right; Future Chronic deep vein thrombosis (DVT) of proximal vein of right lower extremity (CMS/HCC) - Prothrombin time with INR; Future Plan Patient presents 3 days status post fall. Significant swelling, edema, ecchymosis, warmth on exam to his right knee, concern for cellulitis. I have put him on Keflex 500 mg twice daily for 7 days. Hehas documented allergy to amoxicillin which was described as vertigo. They believe he has taken ceph alosporins before without issue and agreed to take Keflex. Will get radiograph of the right knee today to rule out infection. CBC and inflammatory markers ordered to r/o deeper infection. I will follow-up with patient on the results. Advised to continue icing it and keep elevated. Swelling and ecchymosis will take weeks to resolve. F/U as needed. No follow-ups on file. Orders Placed This Encounter Procedures XR Knee 3 Views Right CBC and differential C-reactive protein Prothrombin time with INR MECCA Saab documented in this encounter Plan of Treatment Upcoming Encounters Date Type Department Care Team (Late st Contact Info) Description 04/21/2024 2:15 PM EDT Office Visit Endocrinology - [place] [address] [place] [address] Garo Florez MD [address] [place] [address] 05/12/2024 1:15 PM EDT Office Visit Orthopedic Surgery - [place] [address] [phone] Donny Hughes, DPOleg [address] [address] documented as of this encounter Results * (ABNORMAL) Prothrombin time with INR (03/30/2024 1:06 PM EST) Pathologist [facility] Protime 32.2(H) 10.6 - 13.9 sec LAB COAGULATION METHOD 03/30/2024 2:26 PM EST [facility] INR 2.6 LAB COAGULATION METHOD 03/30/2024 2:26 PM EST [facility] Blood Venous blood specimen / Unknown Venipuncture / Unknown 03/30/2024 1:06 PM EST 03/30/2024 1:06 PM EST us Ashish WING LAB BLOOD ORDERABLES Final Re sult [facility] [address] [place] [address], * (ABNORMAL) C-reactive protein (03/30/2024 1:06 PM EST) [facility] C-Reactive Protein 5.59(H) <=0.50 mg/dL LAB CHEMISTRY METHOD 03/30/2024 2:56 PM EST [facility] Blood Venous blood specimen / Unknown Venipuncture / Unknown 03/30/2024 1:06 PM EST 03/30/2024 1:06 PM EST us Ashish WING LAB BLOOD ORDERABLES Final Re sult [facility] [address] [place] [address], [place] [phone] documented in this encounter Visit Diagnoses Diagnosis Pain and swelling of right knee- Primary Fall, initial encounter Chronic deep vein thrombosis (DVT) of proximal vein of right lower extremity (CMS/HCC) documented in this encounter Historical Medications * This list may reflect changes made after this encounter. Medication Sig Dispense Quantity Refills Last Filled Start D ate End Date acetaZOLAMIDE (DIAMOX) 250 mg tablet 03/16/2024 added in this encounter Additional Health Concerns Assessment Noted Time PHQ-9 Depression Total Score: 0 01/06/20 24 1:14 PM EST A fall risk assessment has been complete d for the patient 01/06/2024 1:11 PM EST documented as of this encounter Care Teams Inspector [employer] Relationship Specialty Start Date End Date Evelyn Valdez MD [address] [place] [phone] PCP - General Internal Medicine 12/09/18 documented as of this encounter
--- OUTSIDE RECORDS SUMMARY | 2024-04-17 14:51 | XMS_ITS | Encounter Summary ---
Author Organization [facility] Address [address] [place] [address] Care Team Providers Care Billing Collections Specialist Name Role Phone Evelyn Valdez MD Primary Care Prov ider Encounter Details Date Type Department Care Team (Latest Contact Info) Description 03/30/2024 1:14 PM EST - 03/30/2024 11:59 PM [facility] Hospital [facility] [address] [place] [phone] Pain and swelling of right knee; Fall, initial encounter Discharge Disposition: Home or Self Care Social [...] care for your loved ones. For example, early childhood worker or elderly care for an older adult? [...] this encounter Medications at Time of Discharge acetaZOLAMIDE (DIAMOX) 250 mg tablet 03/16/2024 atorvastatin (LIPITOR) 20 mg tablet Take 1 tablet (20 mg total) by mouth 1 (one) time each day. 90 each 1 02/19/2024 dilTIAZem CD (CARDIZEM CD) 120 mg 24 hr capsule TAKE 1 CAPSULE BY MOUTH DAILY 100 capsule 1 01/29/2024 docusate sodium (COLACE) 100 mg capsule Take 100 mg by mouth. 11/02/2016 flecainide (TAMBOCOR) 50 mg tablet Take 2 tablets (100 mg total) by mouth 2 (two) times a day. 07/05/2023 fluticasone propion-salmeter oL (Wixela Inhub) 500-50 mcg/dose diskus inhaler Inhale 1 Puff into the lungs 2 Times Daily. 08/02/2022 furosemide (LASIX) 40 mg tablet Take 1 tablet (40 mg total) by mouth 2 (two) times a day. 2 pills am 1 pill QHS 07/05/2023 levalbuterol (XOPENEX) 1.25 mg/3 mL nebulizer [...] days. 02/05/2019 warfarin (COUMADIN) 5 mg tablet Saturday and Wednesdays 7.5mg, all other days takes 5mg 07/02/2023 cephalexin (KEFLEX) 500 mg capsuleIndicatio ns:Pain and swelling of right knee Take 1 capsule (500 mg total) by mouth 2 (two) times a day for 7 days. 14 each 03/30/2024 predniSONE (DELTASONE) 10 mg tablet TAKE 4 TABS DAILY FOR 3 DAYS. 3TABS DAILY FOR 3 DAYS 2TABS DAILY FOR 3 DAYS 1TAB DAILY FOR 3 DAYS 03/08/2024 5 documented as of this encounter Discharge Disposition Disposition Code Departure Means Destination Home or Self Care documented in this encounter Plan of Treatment Upcoming Encounters Date Type Department Care Team (Late st Contact Info) Description 04/21/2024 2:15 PM EDT Office Visit Endocrinology [facility] [address] [facility] [address] Garo Florez MD [address] [place] [phone] 05/12/2024 1:15 PM EDT Office Visit Orthopedic Surgery - [place] [address] [phone] Donny Hughes, DPM [address] [address] documented as of this encounter Procedures Procedure Name Priority Date/Time Associated Diagnosis Comments XR KNEE 4+ VIEWS RIGHT Routine 03/30/2024 1:26 PM EST Pain and swelling of right knee Fall, initial encounter documented in this encounter Results * XR Knee 4+ Views Right (03/30/2024 1:26 PM EST) Anatomical Region Laterality Modality Lower Extremities, Knee Right Radiogra [facility] 03/30/2024 1:45 PM EST Impressions 03/30/2024 1:56 PM EST No acute fracture or dislocation. -------- FINAL REPORT -------- Dictated By: Dottie Gomez Dictated Date: 03/30/2024 13:45 ET Assigned Physician: Dottie Gomez Reviewed and Electronically Signed By: Dottie Gomez Signed Date: 03/30/2024 13:56 ET Workstation ID: [id number] Transcribed By: Self Edit Transcribed Date: 03/30/2024 13:45 ET Narrative 03/30/2024 1:56 PM EST XR KNEE 4+ VIEWS RIGHT Reason: accidental fall Knee pain/swelling Comparison: None FINDINGS: No fracture. ??Posterior patellar spur. ??Normal alignment. ??Tricompartmental joint space narrowing. ??Small suprapatellar joint effusion. ??No concerning calcifications or lucency seen in the included soft tissues. Procedure Note Dottie Gomez MD - 03/30/2024 XR KNEE 4+ VIEWS RIGHT Reason: accidental fall Knee pain/swelling Comparison: None FINDINGS: No fracture. Posterior patellar spur. Normal alignment.Tricompartmental joint space narrowing. Small suprapatellar jointeffusion. No concerning calcifications or lucency seen in the includedsoft tissues. IMPRESSION: No acute fracture or dislocation. -------- FINAL REPORT -------- Dictated By: Dottie Gomez Dictated Date: 03/30/2024 13:45 ET Assigned Physician: oDttie Gomez Reviewed and Electronically Signed By: Dottie Gomez Signed Date: 03/30/2024 13:56 ET Workstation ID: [id number] Transcribed By: Self Edit Transcribed Date: 03/30/2024 13:45 ET Ashish WING IMG XR PROCEDURES Final Resul t documented in this encounter Visit Diagnoses Diagnosis Pain and swelling of right knee Fall, initial encounter documented in this encounter Additional Health Concerns Assessment Noted Time PHQ-9 Depression Total Score: 0 01/06/20 1:14 PM EST A fall risk assessment has been complete d for the patient 01/06/2024 1:11 PM EST documented as of this encounter Care Teams Billing Collections Specialist Relationship Specialty Start Date End Date Evelyn Valdez MD [address] [place] [phone] PCP - General Internal Medicine 12/09/18 documented as of this encounter
--- OUTSIDE RECORDS SUMMARY | 2024-04-17 14:51 | XMS_ITS | Encounter Summary ---
Author Organization [facility] Address [address] [place] [address] Care Team Providers Care Cost Accounting Manager Name Role Phone Evelyn Valdez MD Primary Care Prov ider Reason for Referral * Imaging (Routine) - Pending Review Specialty Diagnoses / Procedures Referred By Contac t Referred To Contact Diagnoses Deep vein thrombosis (DVT) of distal vein of right lower extremity, unspecified chronicity (CMS/HCC) Procedures Vascular US duplex lower extremity venous right Evelyn Valdez MD [address] [place] [address] Phone: tel: fax: [facility] Referral ID Status Reason Start Date Expiration Date V isits Requested Visits Authorized [id number] Pending Review 04/13/2024 04/13/2025 1 1 Reason for Visit * Imaging (Routine) - Pending Review Specialty Diagnoses / Procedures Referred By Contac t Referred To Contact Diagnoses Deep vein thrombosis (DVT) of distal vein of right lower extremity, unspecified chronicity (CMS/HCC) Procedures Vascular US duplex lower extremity venous right Evelyn Valdez MD [address] [place] [address] Phone: tel: fax: [facility] Referral ID Status Reason Start Date Expiration Date V isits Requested Visits Authorized [id number] Pending Review 04/13/2024 04/13/2025 1 1 Encounter Details Date Type Department Care Team (Latest Contact Info) Description 04/15/2024 3:52 PM EST - 04/15/2024 11:59 PM EST Hospital Encounter Radiology Department - [address] [phone] Deep vein thrombosis (DVT) of distal vein of right lower extremity, unspecified chronicity (CMS/HCC) Discharge Disposition: Home or Self Care [...] for your loved ones. For example, child support specialist or elderly care for an older [...] capsule Take 100 mg by mouth. 11/02/2016 doxycycline (ADOXA) 100 mg tablet Take 1 tablet (100 mg total) by mouth 2 (two) times a day. Take with a full glass of water and do not lie down for at least 30 minutes after doxycycline (VIBRAMYCIN) 100 mg capsuleIndicatio ns:Cellulitis of right lower extremity Take 1 capsule (100 mg total) by mouth 2 (two) times a day for 10 days. Take with at least 8 ounces (large glass) of water, do not lie down for 30 minutes after. Administer 2 hours before or after multivitamins, antacids, or other products containing polyvalent cations (i.e., calcium, iron, magnesium, selenium, zinc). 20 each 04/13/2024 flecainide (TAMBOCOR) 50 mg tablet Take 2 [...] BY MOUTH DAILY 90 tablet 3 02/06/2024 predniSONE (DELTASONE) 5 mg tablet Take 1 tablet (5 mg total) by mouth 1 (one) time each day. 3 days weekly senna (SENOKOT) 8.6 mg tablet Take 3 Tabs by mouth at bedtime for 360 days. 02/05/2019 warfarin (COUMADIN) 5 mg tablet Saturday and Wednesdays 7.5mg, all other days takes 5mg 07/02/2023 documented as of this encounter Discharge Disposition Disposition Code Departure Means Destination Home or Self Care documented in this encounter Plan of Treatment Upcoming Encounters Date Type Department Care Team (Late st Contact Info) Description 04/21/2024 2:15 PM EDT Office Visit Endocrinology [address] [address] Garo Florez MD [address] [place] [phone] 05/12/2024 1:15 PM EDT Office Visit Orthopedic Surgery - [address] [phone] Donny Hughes, DPM 175 [facility] [address] [place] [address] documented as of this encounter Procedures Procedure Name Priority Date/Time Associated Diagnosis Comments VAS US DUPLEX LOWER EXT VENOUS RIGHT Routine 04/15/2024 4:34 PM EST Deep vein thrombosis (DVT) of distal vein of right lower extremity, unspecified chronicity (CMS/HCC) documented in this encounter Results * Vascular US duplex lower extremity venous right (04/15/2024 4:34 PM EST) Anatomical Region Laterality Modality Vascular, Abdomen Ultrasound 04/15/2024 4:41 PM EST Impressions 04/15/2024 4:45 PM EST Impression: Minimal residual chronic DVT in the proximal right femoral vein. No evidence of acute DVT. -------- FINAL REPORT -------- Dictated By: Lorenza Gracia Dictated Date: 04/15/2024 16:41 ET Assigned Physician: Lorenza Gracia Reviewed and Electronically Signed By: Lorenza Gracia Signed Date: 04/15/2024 16:45 ET Workstation ID: [id number] Transcribed By: Self Edit Transcribed Date: 04/15/2024 16:41 ET Narrative 04/15/2024 4:45 PM EST History: DVT history. The patient is currently on Eliquis and has an IVC filter. Prior: None currently available. Right lower extremity deep venous Doppler examination: Real-time, duplex and color Doppler examination of the deep venous system of the right lower extremity was performed, including the common femoral, greater saphenous, profunda femora takeoff, femoral and popliteal venous segments, as well as the paired peroneal and gastrocnemius veins in the calf. The paired posterior tibial veins are not visualized. There is appears to be minimal residual chronic DVT in the proximal right femoral vein Color filling otherwise appears normal. There are otherwise no appreciable filling defects. Compression and augmentation were otherwise normal throughout. No abnormal fluid collections are demonstrated. Procedure Note Lorenza Gracia MD - 04/15/2024 History: DVT history. The patient is currently on Eliquis and has an IVCfilter. Prior: None currently available. Right lower extremity deep venous Doppler examination: Real-time, duplexand color Doppler examination of the deep venous system of the right lowerextremity was performed, including the common femoral, greater saphenous,profunda femora takeoff, femoral and popliteal venous segments, as well asthe paired peroneal and gastrocnemius veins in the calf. The pairedposterior tibial veins are not visualized. There is appears to be minimal residual chronic DVT in the proximal rightfemoral vein Color filling otherwise appears normal. There are otherwise no appreciable filling defects. Compression and augmentation were otherwise normal throughout. No abnormal fluid collections are demonstrated. IMPRESSION: Impression: Minimal residual chronic DVT in the proximal right femoralvein. No evidence of acute DVT. -------- FINAL REPORT -------- Dictated By: Lorenza Gracia Dictated Date: 04/15/2024 16:41 ET Assigned Physician: Lorenza Gracia Reviewed and Electronically Signed By: oLrenza Gracia Signed Date: 04/15/2024 16:45 ET Workstation ID: [id number] Transcribed By: Self Edit Transcribed Date: 04/15/2024 16:41 ET us Evelyn Valdez MD CV VASCULAR PROCED URES Final Result documented in this encounter Visit Diagnoses Diagnosis Deep vein thrombosis (DVT) of distal vein of right lower extremity, unspecified chronicity (CMS/HCC) documented in this encounter Additional Health Concerns Assessment Noted Time PHQ-9 Depression Total Score: 0 01/06/20 24 1:14 PM EST A fall risk assessment has been complete d for the patient 01/06/2024 1:11 PM EST documented as of this encounter Care Teams Cost Accounting Manager Relationship Specialty Start Date End Date Evelyn Valdez MD [address] [place] [address] PCP - General Internal Medicine 12/09/18 documented as of this encounter
--- OUTSIDE RECORDS SUMMARY | 2024-04-17 14:51 | XMS_ITS | Encounter Summary ---
Author Organization [facility] Address [address] [place] [address] Care Team Providers Care Stock Holder Name Role Phone Evelyn Valdez MD Primary Care Prov ider Reason for Visit * Reason Onset Date Comments Error 04/07/2024 Encounter Details Date Type Department Care Team ([facility] st Contact Info) Description 04/07/2024 Telephone Adult Medicine - [place] [address] [place] [phone] Evelyn Valdez MD [address] [place], [place] [phone] Error Social History Tobacco Use Types Packs/Day Years [...] care for your loved ones. For example, childcare center director or elderly care for an older [...] Upcoming Encounters Date Type Department Care Team ([facility] st Contact Info) Description 04/21/2024 2:15 PM EDT Office Visit [address] [address] Garo Florez MD [address] [place] [address] 05/12/2024 1:15 PM EDT Office Visit Orthopedic Surgery - [place] [address] [phone] Donny Hughes, DPM [address] [address] documented as of this encounter Visit Diagnoses Not on filedocumented in this encounter Additional Health Concerns Assessment Noted Time PHQ-9 Depression Total Score: 0 01/06/20 1:14 PM EST A fall risk assessment has been complete d for the patient 01/06/2024 1:11 PM EST documented as of this encounter Care Teams Stock Holder Relationship Specialty Start Date End Date Evelyn Valdez MD [address] [place] [phone] PCP - General Internal Medicine 12/09/18 documented as of this encounter
--- OUTSIDE RECORDS SUMMARY | 2024-04-17 14:51 | XMS_ITS | Encounter Summary ---
Author Organization [facility] Address [address] [place] [address] Care Team Providers Care Mash Filter Operator Name Role Phone Evelyn Valdez MD Primary Care Prov ider Reason for Referral * Imaging (Routine) - Authorized Specialty Diagnoses / Procedures Referred By Luci t Referred To Contact Radiology Diagnoses Dysphagia, unspecified type Procedures XR Esophagram Evelyn Valdez MD [address] [place], [place] Phone: tel: fax: [facility] CT Scan [address] [place] [address] Phone: tel: Referral ID Status Reason Start Date Expiration Date V isits Requested Visits Authorized [id number] Authorized 04/13/2024 04/13/2025 1 1 * Imaging (Routine) - Pending Review Specialty Diagnoses / Procedures Referred By Contac t Referred To Contact Diagnoses Deep vein thrombosis (DVT) of distal vein of right lower extremity, unspecified chronicity (CMS/HCC) Procedures Vascular US duplex lower extremity venous right Evelyn Valdez MD [address] [place], [place] Phone: tel: fax: [facility] Referral ID Status Reason Start Date Expiration Date V isits Requested Visits Authorized [id number] Pending Review 04/13/2024 04/13/2025 1 1 Reason for Visit * Reason Comments Leg Swelling Foot Swelling Right side Cough Encounter Details Date Type Department Care Team (Late st Contact Info) Description 04/13/2024 1:30 PM EST Office Visit Adult Medicine - [place] [address] [place] [phone] Evelyn Valdez MD [address] [place] [address] Cellulitis of right lower extremity (Primary Dx); Dysphagia, unspecified type; Deep vein thrombosis (DVT) of distal vein of right lower extremity, unspecified chronicity (CMS/HCC) Social History Tobacco Use Types Packs/Day [...] on file documented as of this encounter Ordered Prescriptions Prescription Sig Dispense Quantity Refills Last Filled Start Date End Date doxycycline (VIBRAMYCIN) 100 mg capsuleIndications :Cellulitis of right lower extremity Take 1 capsule (100 mg total) by mouth 2 (two) times a day for 10 days. Take with at least 8 ounces (large glass) of water, do not lie down for 30 minutes after. Administer 2 hours before or after multivitamins, antacids, or other products containing polyvalent cations (i.e., calcium, iron, magnesium, selenium, zinc). 20 each 04/13/2024 5 documented in this encounter Progress Notes * Evelyn Valdez MD - 04/13/2024 1:30 PM EST CHIEF COMPLAINT: Leg Swelling, Foot Swelling (Right side), and Cough IDENTIFIER: Jay Gonzales is a 78 y.o. old male. HPI: 78-year-old comes in with his for evaluation of a persistent right lower extremity swelling and difficulty swallowing He has a history of chronic DVT on anticoagulation therapy has a filter in place congestive heart failure COPD paroxysmal atrial fibrillation. His says that he fell at the local store and injured his right knee .the knee and his lower extremity swelling up. He was seen in the office and started with antibiotics for cellulitis. Return to the office today because the swelling is still present he does not have as much pain and he has skin changes Initially his said there were blisters which could be from significant pedal edema. She says she has also noticed that he wheezes and is having problems swallowing .he has his COPD cough. She is concerned that he might be aspirating Patient has very few complaints today ROS: See HPI PAST MEDICAL HISTORY: Patient Active Problem List Diagnosis Date Noted Chronic deep vein thrombosis (DVT) of lower extremity ([facility]) 11/07/2023 Diastolic heart failure ([facility]) 07/06/2021 Diastolic dysfunction, left ventricle 06/30/2021 Vascular disease 06/29/2021 DEREK and COPD overlap syndrome ([facility]) 03/24/2021 Atelectasis, left 12/12/2018 Chronically elevated hemidiaphragm 12/12/2018 COPD (chronic obstructive pulmonary disease) ([facility]) 12/12/2018 Vitamin D deficiency 12/12/2018 Paroxysmal atrial fibrillation ([facility]) 12/11/2018 Severe obesity (BMI 35.0-39.9) with comorbidity ([facility]) 08/08/2016 Adrenal adenoma 04/10/2016 Aortic valve stenosis with insufficiency 06/25/2011 Ischemic cardiomyopathy 06/25/2011 Hematuria 11/14/2010 Hepatic cyst 11/14/2010 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/2010 Renal cyst 11/14/2010 Benign prostatic hyperplasia 11/03/2010 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 Hyperglycemia 11/03/2010 Metabolic syndrome 11/03/2010 Stasis edema, bilateral 09/23/2010 Diverticulosis 09/22/2010 GERD (gastroesophageal reflux disease) 09/22/2010 Hypercholesterolemia 09/22/2010 Hypertension 09/22/2010 Pulmonary embolism ([facility]/HCC) 09/22/2010 SOCIAL HISTORY: Social History Tobacco Use Smoking status: Former Current packs/day: 0.00 Types: Cigarettes Quit date: 03/14/1989 Years since quittin.1 Smokeless tobacco: Former Substance Use Topics Alcohol [...] Outpatient Medications Marked as Taking for the 04/13/24 encounter (Office Visit) with Evelyn Valdez MD Medication Sig Dispense Refill acetaZOLAMIDE (DIAMOX) 250 mg tablet atorvastatin (LIPITOR) 20 mg tablet Take 1 [...] day. 2 pills am 1 pill QHS levalbuterol (XOPENEX) 1.25 mg/3 mL nebulizer solution [...] 360 days. warfarin (COUMADIN) 5 mg tablet Saturday and Wednesdays 7.5mg, all other days takes 5mg ALLERGIES: Amoxicillin-pot clavulanate PHYSICAL EXAM: There were no vitals taken for this visit. There is no height or weight on file to calculate BMI. Plan is deferred because the patient is aged 65 or older and a weight gain/reduction plan would complicate other health conditions APPEARANCE: Alert and in no acute distress EYES: PERRLA, conjunctiva and sclera normal HEART: RRR with normal S1 and S2, no murmurs, no gallops, no JVD appreciated LYMPH NODES: grossly normal EXTREMITIES: Large bruise on right knee right cough shows chronic venous stasis changes none pitting edema LABS: Ultrasound rule out DVT Barium swallow IMPRESSION: 1. Cellulitis of right lower extremity 2. Dysphagia, unspecified type 3. Deep vein thrombosis (DVT) of distal vein of right lower extremity, unspecified chronicity ([facility]/HCC) PLAN: Cellulitis of the right lower extremity Persistent Will continue antibiotics Rule out recurrent DVT If no evidence of DVT will refer patient to vascular for evaluation of arterial insufficiency His is advised to encourage him to keep his leg elevated as much as possible He is not on anticoagulation therapy as he has a filter in place Dysphagia Will send for barium swallow Depending on barium swallow consider occupational therapy Will call patient when results are available Orders Placed This Encounter Procedures XR Esophagram Vascular US duplex lower extremity venous right ADDITIONAL ORDERS: VAS US DUPLEX LOWER EXT VENOUS RIGHT XR ESOPHAGRAM Evelyn Valdez MD on 04/13/2024 at 5:40 PM EST documented in this encounter Plan of Treatment Upcoming Encounters Date Type Department Care Team (Late st Contact Info) Description 04/21/2024 2:15 PM EDT Office Visit Endocrinology - [place] [address] [place] [phone] Garo Florez MD [address] [place] [phone] 05/12/2024 1:15 PM EDT Office Visit Orthopedic Surgery - [place] [address] [phone] Donny Hughes DPM [address] [place] [address] Scheduled Orders Name Type Priority Associated Diagnoses Orde r Schedule XR Esophagram Imaging Routine Dysphagia, unspecified type Expected: 04/13/2024, Expires: 04/13/2025 documented as of this encounter Results * Vascular US duplex [...] Signed Date: 04/15/2024 16:45 ET Workstation ID: [id number] Transcribed By: Self Edit Transcribed Date: 04/15/2024 [...] Signed Date: 04/15/2024 16:45 ET Workstation ID: [id number] Transcribed By: Self Edit Transcribed Date: 04/15/2024 16:41 ET us Evelyn Valdez MD CV VASCULAR PROCED URES Final Result documented in this encounter Visit Diagnoses Diagnosis Cellulitis of right lower extremity- Primary Dysphagia, unspecified type Deep vein thrombosis (DVT) of distal vein of right lower extremity, unspecified chronicity (CMS/HCC) Deep vein thrombosis (DVT) of distal vein of right lower extremity, unspecified chronicity (CMS/HCC) documented in this encounter Discontinued Medications Medication Sig Discontinue Reason Start Date End Da te predniSONE (DELTASONE) 10 mg tablet TAKE 4 TABS DAILY FOR 3 DAYS. 3TABS DAILY FOR 3 DAYS 2TABS DAILY FOR 3 DAYS 1TAB DAILY FOR 3 DAYS Therapy completed 03/08/2024 04/13/2024 cephalexin (KEFLEX) 500 mg capsuleIndications:Pain and swelling of right knee Take 1 capsule (500 mg total) by mouth 2 (two) times a day for 7 days. Therapy completed 03/30/2024 04/13/2024 documented as of this encounter Historical Medications * This list may reflect changes made after this encounter. doxycycline (ADOXA) 100 mg tablet Take 1 tablet (100 mg total) by mouth 2 (two) times a day. Take with a full glass of water and do not lie down for at least 30 minutes after predniSONE (DELTASONE) 5 mg tablet Take 1 tablet (5 mg total) by mouth 1 (one) time each day. 3 days weekly added in this encounter Additional Health Concerns Assessment Noted Time PHQ-9 Depression Total Score: 0 01/06/20 24 1:14 PM EST A fall risk assessment has been complete d for the patient 01/06/2024 1:11 PM EST documented as of this encounter Care Teams Mash Filter Operator Relationship Specialty Start Date End Date Evelyn Valdez MD [address] [place] [id number] PCP - General Internal Medicine 12/09/18 documented as of this encounter
--- OUTSIDE RECORDS SUMMARY | 2024-04-17 14:51 | XMS_ITS | Encounter Summary ---
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 For example, child therapist or elderly care for an older adult? [...] Progress Notes * Lyle Concepcion RN - 03/30/2024 9:03 AM EST Pt fell on Saturday he has a hematoma on his knee , pt is on coumadin , pt denies hitting head * Julián Chance - 03/30/2024 8:47 AM EST Patient call requires triage: Symptoms patient is presenting: Right knee bruised due to a fall at a restaurant on 03/27/24. Pt is on blood thinners so his bruises are noticeable. How long has patient had these symptoms?: 03/27/24 For ALL patients calling to schedule any appointment (routine, sick visit, follow up, consult, etc.) in the outpatient setting please ask the following questions: Do you have fever of higher than 101, sore throat with difficulty swallowing or severe shortness ofbreath? Yes, SOB and fever 100.4 If YES to any of these above symptoms, send a message to triage and do not book. Red dot. If no, an audio or video visit should be booked. Have you had close contact with someone with Coronavirus in the last 14 days? no Have you traveled abroad? no Have you traveled recently to another state outside of [place], [place], [place], [place], [place], [place], [place]? no o If yes, did you quarantine [...] of accident/Injury: No If yes, gather 3rd democrat insurance information Third Constitution Party Information: not applicable PCP: Evelyn Valdez MD Payor: [facility] MEDICARE / Plan: [facility] MEDICARE ADVANTAGE / Product Type: *No Product type* / documented in this encounter Plan of Treatment Upcoming Encounters Date Type Department Care Team ([facility] st Contact Info) Description 04/21/2024 2:15 PM EDT Office Visit Endocrinology - [place] [address] [place] [phone] Garo Florez MD [address] [place] [address] 05/12/2024 1:15 PM EDT Office Visit Orthopedic Surgery - [place] [address] [phone] Donny Hughes, DPM [address] [address] documented as of this encounter Visit Diagnoses Not on filedocumented in this encounter Additional Health Concerns Assessment Noted Time PHQ-9 Depression Total Score: 0 01/06/20 1:14 PM EST A fall risk assessment has been complete d for the patient 01/06/2024 1:11 PM EST documented as of this encounter Care Teams Aircraft Engine Installer Relationship Specialty Start Date End Date Evelyn Valdez MD [address] [place] [address] PCP - General Internal Medicine 12/09/18 documented as of this encounter
--- OUTSIDE RECORDS SUMMARY | 2024-04-17 14:51 | XMS_ITS | Clinical Summary ---
Author Organization [facility] [address] [facility] lding Address [address] [place] [address] Phone Care Team Providers Care Souvenir Assembler Name Role Phone Evelyn Valdez MD Primary Care Prov ider Allergies Active Allergy Reactions Criticality Noted Date Comments Amoxicillin-Pot Clavulanate 01/09/20 23 Medications furosemide (LASIX) 40 mg tablet Take 1 tablet (40 mg total) by mouth 2 (two) times a day. 2 pills am 1 pill QHS 4 Active flecainide (TAMBOCOR) 50 mg tablet Take 2 tablets (100 mg total) by mouth 2 (two) times a day. 4 Active warfarin (COUMADIN) 5 mg tablet Saturday and Wednesdays 7.5mg, all other days takes 5mg 4 Active docusate sodium (COLACE) 100 mg capsule Take 100 mg by mouth. 7 Active fluticasone propion-salmet Penny (Wixela Inhub) 500-50 mcg/dose diskus inhaler Inhale 1 Puff into the lungs 2 Times Daily. 3 Active levalbuterol (XOPENEX) 1.25 mg/3 mL nebulizer solution INHALE 1.25 MG (0.5 ML) EVERY 4 HOURS WHILE AWAKE FOR COPD FOR 30 DAYS 3 Active senna (SENOKOT) 8.6 mg tablet Take 3 Tabs by mouth at bedtime for 360 days. 9 Active MULTIVITAMIN ORAL Take 1 tablet by mouth 1 (one) time each day. 9 Active dilTIAZem CD (CARDIZEM CD) 120 mg 24 hr capsule TAKE 1 CAPSULE BY MOUTH DAILY 100 capsule 1 4 Active potassium chloride (KLOR-CON M10) 10 mEq CR tablet TAKE 1 TABLET BY MOUTH DAILY 90 tablet 3 4 Active atorvastatin (LIPITOR) 20 mg tablet Take 1 tablet (20 mg total) by mouth 1 (one) time each day. 90 each 1 5 08/18/19 25 Active acetaZOLAMIDE (DIAMOX) 250 mg tablet 5 Active predniSONE (DELTASONE) 5 mg tablet Take 1 tablet (5 mg total) by mouth 1 (one) time each day. 3 days weekly Active doxycycline (ADOXA) 100 mg tablet Take 1 tablet (100 mg total) by mouth 2 (two) times a day. Take with a full glass of water and do not lie down for at least 30 minutes after Active doxycycline (VIBRAMYCIN) 100 mg capsuleIndicat ions:Celluliti s of right lower extremity Take 1 capsule (100 mg total) by mouth 2 (two) times a day for 10 days. Take with at least 8 ounces (large glass) of water, do not lie down for 30 minutes after. Administer 2 hours before or after multivitamins, antacids, or other products containing polyvalent cations (i.e., calcium, iron, magnesium, selenium, zinc). 20 each 5 04/24/19 25 Active predniSONE (DELTASONE) 10 mg tablet TAKE 4 TABS DAILY FOR 3 DAYS. 3TABS DAILY FOR 3 DAYS 2TABS DAILY FOR 3 DAYS 1TAB DAILY FOR 3 DAYS 5 04/14/19 25 Discontinu ed(Therapy completed) cephalexin (KEFLEX) 500 mg capsuleIndicat ions:Pain and swelling of right knee Take 1 capsule (500 mg total) by mouth 2 (two) times a day for 7 days. 14 each 5 04/14/19 25 Discontinu ed(Therapy completed) Active Problems Problem Noted Date Diagnosed Date Chronic deep vein thrombosis (DVT) of lower extr emity 11/07/2023 Overview (11/07/2023): Recurrent Diastolic heart failure 07/06/2021 Overview (11/07/2023): Dr. Nava. Grade 1 diastolic dysfunction clinically euvolemic and well compensated Diastolic dysfunction, left ventricle 06/30/2021 Overview (11/07/2023): 06/30/2021 Dr. Nava [facility]. No clinical signs central venous congestion. [...] Encounters Date Type Department Care Team Description 04/15/2024 3:52 PM EST - 04/15/2024 11:59 PM EST Hospital Encounter Radiology Department - [address] [phone] Deep vein thrombosis (DVT) of distal vein of right lower extremity, unspecified chronicity (CMS/HCC) Discharge Disposition: Home or Self Care 04/13/2024 1:30 PM EST Office Visit Adult Medicine [address] [phone] Evelyn Simon MD Cellulitis of right lower extremity (Primary Dx); Dysphagia, unspecified type; Deep vein thrombosis (DVT) of distal vein of right lower extremity, unspecified chronicity (CMS/HCC) 04/07/2024 Telephone Adult Medicine [address] [phone] Evelyn Simon MD Error 03/30/2024 1:14 PM EST - 03/30/2024 11:59 PM EST Hospital Encounter [address] [phone] Pain and swelling of right knee; Fall, initial encounter Discharge Disposition: Home or Self Care 03/30/2024 12:30 PM EST Office Visit Adult [address] [phone] Ashish Medeiros PA Pain and swelling of right knee (Primary Dx); Fall, initial encounter; Chronic deep vein thrombosis (DVT) of proximal vein of right lower extremity (CMS/HCC) 03/30/2024 Telephone Adult [address] [phone] Evelyn Simon MD Knee Injury (Right Knee Pain ); Fall 03/23/2024 12:37 PM EST - 03/23/2024 11:59 PM EST Hospital Encounter CT Scan - [address] [phone] Acute upper respiratory infection, unspecified; Pneumonia of right lower lobe due to infectious organism Discharge Disposition: Home or Self Care 03/17/2024 2:45 PM EST Office Visit Adult [address] [phone] Evelyn Simon MD Chronic diastolic heart failure (CMS/HCC) (Primary Dx); Pneumonia of both lungs due to infectious organism, unspecified part of lung; Chronic bronchitis, unspecified chronic bronchitis type (CMS/HCC) 02/27/2024 Telephone Adult [address] [phone] Leonardo Swenson PA URI; Wheezing 02/19/2024 11:00 AM EST - 02/19/2024 11:59 PM EST Hospital Encounter Xray [address] [phone] Ear pain, left; DEREK and COPD overlap syndrome (CMS/HCC) Discharge Disposition: Home or Self Care 02/19/2024 10:30 AM EST Office Visit Adult [address] [phone] Leonardo Swenson PA Acute upper respiratory infection, unspecified (Primary Dx); Ear pain, left; DEREK and COPD overlap syndrome (CMS/HCC); Ischemic cardiomyopathy; Chronic diastolic heart failure ([facility]); Hypercholesterolemia 02/19/2024 Telephone Adult [address] [phone] Leonardo Swenson PA 02/19/2024 Telephone Adult [address] [phone] Evelyn Simon MD 02/06/2024 Telephone Adult [address] [phone] Evelyn Simon MD from Last 3 Months Immunizations Name Administration [...] Surgery Date Site/Laterality Comments OTHER SURGICAL HISTORY 1991 PROCEDURE: HISTORY OTHER; COMMENT: rajat filter, guidewire [...] COMMENT: Non obstructive CAD-mild disease APPENDECTOMY PROCEDURE: DE APPENDECTOMY OTHER SURGICAL HISTORY 09/28/2021 Right PROCEDURE: DE ENDOVEN ABLTJ INCMPTNT VEIN XTR LASER 1ST VEIN; COMMENT: Dr. Wall Medical History Medical History Date Comments Atrial flutter ([facility]) 12/11/2018 DX:Atri al flutter ([facility]); COMMENT: On warfarin Adrenal adenoma 04/10/2016 DX:Adrenal adeno ma Aortic valve stenosis with insufficiency 06/25/19 DX:Aortic valve stenosis with insufficiency; COMMENT: Echo 05/25/11 mild AMS, 2+ AI, mild rheumatic changes in mitral valve Benign prostatic hyperplasia 11/03/2010 DX: Benign prostatic hyperplasia; COMMENT: Dr Portillo Atelectasis, left 12/12/2018 DX:Atelectasis , left Chronically elevated hemidiaphragm 12/12/2018 DX:Chronically elevated hemidiaphragm COPD (chronic obstructive pu lmonary disease) ([facility]) 12/12/2018 DX:COPD (chronic obstructive pulmonary disease) ([facility]); COMMENT: Moderately severe Diverticulosis 09/22/2010 DX:Diverticulosi s; COMMENT: Past historic diverticulitis DVT, recurrent, lower extremity, chronic 3 DX:DVT, recurrent, lower extremity, chronic GERD (gastroesophageal [...] your loved ones. For example, child nutrition director or elderly care for an older [...] Mass Index 36.62 03/30/2024 12:29 PM EST Plan of Treatment Upcoming Encounters Date Type Department Care Team (Late st Contact Info) Description 04/21/2024 2:15 PM EDT Office Visit Endocrinology [facility] [address] [place] [phone] Garo Florez MD [address] [place] [phone] 05/12/2024 1:15 PM EDT Office Visit Orthopedic Surgery - [place] [address] [phone] Donny Hughes DPM [address] [address] Health Maintenance Due Date Last Done Comments Hypertension/CHF/CAD Annual BMP Blood Test 09/21/2023 09/20/2022 Depression Screening 01/05/2025 01/06/2024 Falls Risk Assessment 01/05/2025 01/06/2024 Medicare Annual Wellness Visit 01/05/2025 01/06/2024 Social Influencers of Health Screening 01/05/2025 01/06/2024 Cholesterol Screening (Lipid Panel) 03/30/2025 03/30/2020 DTaP,Tdap,and Td Vaccines (3 - Td or Tdap) 12/15/2033 12/16/2023, 06/25/2011 Hepatitis C Screening Completed 06/19/2012 Pneumococcal Vaccine: 50+ Years Completed 11/12/2014, 10/27/2012 Zoster Vaccines Completed [...] patient's age to complete this topic Meningococcal B Vacine Aged Out No lo nger eligible based on patient's age to complete [...] of right lower extremity, unspecified chronicity (CMS/HCC) XR KNEE 4+ VIEWS RIGHT Routine 03/30/2024 1:26 PM EST Pain and swelling of right knee Fall, initial encounter MANUAL DIFFERENTIAL - SYSMEX WAM Routine 03/30/2024 1:06 PM EST Pain and swelling of right knee Fall, initial encounter CBC WITH AUTO DIFFERENTIAL Routine 03/30/2024 1:06 PM EST Pain and swelling of right knee Fall, initial encounter PROTHROMBIN TIME WITH INR Routine 03/30/2024 1:06 PM EST Chronic deep vein thrombosis (DVT) of proximal vein of right lower extremity (CMS/HCC) C-REACTIVE PROTEIN Routine 03/30/2024 1: 06 PM EST Pain and swelling of right knee Fall, initial encounter CBC AND DIFFERENTIAL Routine 03/30/2024 1:06 PM EST Pain and swelling of right knee Fall, initial encounter CT CHEST WO CONTRAST Routine 03/23/2024 12:58 PM EST Acute upper respiratory infection, unspecified Pneumonia of right lower lobe due to infectious organism XR CHEST 2 VIEWS Routine 02/19/2024 11:0 9 AM EST Ear pain, left DEREK and COPD overlap syndrome (CMS/HCC) [id number], RSV, FLU A AND B QUALITATIVE RT-PCR, LOCAL REFERENCE LAB Routine 02/19/2024 10:58 AM EST Acute upper respiratory infection, unspecified Ear pain, left DEREK and COPD overlap syndrome (CMS/HCC) ANNUAL BMP BLOOD TEST Routine 09/20/2022 LIPID PANEL Routine 03/30/2020 HEPATITIS C SCREENING Routine 06/19/2012 from Last 3 Months or Most Recently Relevant to Health Maintenance Results * Vascular US duplex lower extremity [...] Signed Date: 04/15/2024 16:45 ET Workstation ID: [id number] Transcribed By: Self Edit Transcribed Date: 04/15/2024 [...] Signed Date: 04/15/2024 16:45 ET Workstation ID: [id number] Transcribed By: Self Edit Transcribed Date: 04/15/2024 16:41 ET us Evelyn Valdez MD CV VASCULAR PROCED URES Final Result * XR Knee 4+ Views Right (03/30/2024 1:26 PM EST) Anatomical Region Laterality Modality Lower Extremities, Knee Right Radiogra phic Imaging 03/30/2024 1:45 PM EST Impressions 03/30/2024 1:56 PM EST No acute fracture or dislocation. -------- FINAL REPORT -------- Dictated By: Dottie Gomez Dictated Date: 03/30/2024 13:45 ET Assigned Physician: Dottie Gomez Reviewed and Electronically Signed By: Dottie Gomez Signed Date: 03/30/2024 13:56 ET Workstation ID: [id number] Transcribed By: Self Edit Transcribed Date: 03/30/2024 [...] Signed Date: 03/30/2024 13:56 ET Workstation ID: [id number] Transcribed By: Self Edit Transcribed Date: 03/30/2024 13:45 ET Ashish WING IMG XR PROCEDURES Final Resul t * (ABNORMAL) Manual differential (03/30/2024 1:06 PM EST) Neutrophils % 68.0 % LAB HEMETOLOGY METHOD 03/30/2024 3:44 PM [facility] Bands % 2.0 % LAB HEMETOLOGY METHOD 03/30/2024 3:44 PM [facility] Lymphocytes % 10.0 % LAB HEMETOLOGY METHOD 03/30/2024 3:44 PM [facility] Reactive Lymphocyte 1.00 % LAB HEMETOLOGY METHOD 03/30/2024 3:44 PM [facility] Monocytes % 17.0 % LAB HEMETOLOGY METHOD 03/30/2024 3:44 PM [facility] Eosinophils % 0.0 % LAB HEMETOLOGY METHOD 03/30/2024 3:44 PM [facility] Basophils % 0.0 % LAB HEMETOLOGY METHOD 03/30/2024 3:44 PM [facility] Promyelocytes % 3.0(H) % LAB HEMETOLOGY METHOD 03/30/2024 3:44 PM [facility] Neutrophils Absolute Manual 7.55(H) 1.50 - 7.00 K/mcL LAB HEMETOLOGY METHOD 03/30/2024 3:44 PM [facility] Bands Absolute Manual 0.22(H) 0.00 - 0.00 K/mcL LAB HEMETOLOGY METHOD 03/30/2024 3:44 PM [facility] Lymphocytes Absolute 1.11 1.00 - 5.00 K/mcL LAB HEMETOLOGY METHOD 03/30/2024 3:44 PM [facility] Reactive Lymph Abs Manual 0.11(H) 0.00 - 0.00 lym LAB HEMETOLOGY METHOD 03/30/2024 3:44 PM [facility] Monocytes Absolute Manual 1.89(H) 0.20 - 1.00 K/mcL LAB HEMETOLOGY METHOD 03/30/2024 3:44 PM [facility] Eosinophils Absolute Manual 0.00 0.00 - 0.50 K/mcL LAB HEMETOLOGY METHOD 03/30/2024 3:44 PM [facility] Basophils Absolute Manual 0.00 0.00 - 0.20 K/mcL LAB HEMETOLOGY METHOD 03/30/2024 3:44 PM [facility] Promyelocytes Absolute Manual 0.33(H) 0.00 - 0.00 K/mcL LAB HEMETOLOGY METHOD 03/30/2024 3:44 PM [facility] Rbc Morphology Present( A) Consistent with indices, Normal for LAB HEMETOLOGY METHOD 03/30/2024 3:44 PM [facility] Comment:RBC: Morphology agre es with CBC Platelet Morphology - WAM See Note(A) Normal LAB HEMETOLOGY METHOD 03/30/2024 3:44 PM [facility] Comment:PLT: Large platelets seen Toxic Granules Present Present( A) (none) LAB HEMETOLOGY METHOD 03/30/2024 3:44 PM [facility] Blood Venous blood specimen / Unknown Venipuncture / Unknown 03/30/2024 1:06 PM EST 03/30/2024 1:06 PM EST us Ashish WING LAB BLOOD ORDERABLES Final Re sult [facility] [address] [place] [address], * (ABNORMAL) CBC auto differential (03/30/2024 1:06 PM EST) WBC 11.1(H) 4.8 - 10.8 K/mcL LAB HEMETOLOGY METHOD 03/30/2024 3:44 PM [facility] RBC 4.30(L) 4.50 - 5.50 M/mcL LAB HEMETOLOGY METHOD 03/30/2024 3:44 PM [facility] Hemoglobin 12.5(L) 13.5 - 17.5 g/dL LAB HEMETOLOGY METHOD 03/30/2024 3:44 PM [facility] Hematocrit 40.1(L) 42.0 - 54.0 % LAB HEMETOLOGY METHOD 03/30/2024 3:44 PM [facility] MCV 94.1 79.0 - 98.0 FL LAB HEMETOLOGY METHOD 03/30/2024 3:44 PM [facility] MCH 29.3 27.0 - 32.0 pcg LAB HEMETOLOGY METHOD 03/30/2024 3:44 PM [facility] MCHC 31.2(L) 32.0 - 37.0 g/dL LAB HEMETOLOGY METHOD 03/30/2024 3:44 PM [facility] RDW 16.0(H) 11.0 - 15.0 % LAB HEMETOLOGY METHOD 03/30/2024 3:44 PM [facility] Platelets 102(L) 130 - 400 K/mcL LAB HEMETOLOGY METHOD 03/30/2024 3:44 PM [facility] MPV 10.5 7.0 - 11.0 FL LAB HEMETOLOGY METHOD 03/30/2024 3:44 PM EST [facility] NRBC 0.0 <1.0 % LAB HEMETOLOGY METHOD 03/30/2024 3:44 PM EST [facility] NRBC Absolute 0.00 <0.10 K/mcL LAB HEMETOLOGY METHOD 03/30/2024 3:44 PM EST [facility] Blood Venous blood specimen / Unknown Venipuncture / Unknown 03/30/2024 1:06 PM EST 03/30/2024 1:06 PM EST us Ashish WING LAB BLOOD ORDERABLES Final Re sult Performing Organization Address [facility]/ZIP Co de Phone Number [facility] [address] [place] [address], [place] [phone] * (ABNORMAL) Prothrombin time with INR (03/30/2024 1:06 PM EST) Protime 32.2(H) 10.6 - 13.9 sec LAB COAGULATION METHOD 03/30/2024 2:26 PM EST [facility] INR 2.6 LAB COAGULATION METHOD 03/30/2024 2:26 PM EST [facility] Blood Venous blood specimen / Unknown Venipuncture / Unknown 03/30/2024 1:06 PM EST 03/30/2024 1:06 PM EST us Ashish WING LAB BLOOD ORDERABLES Final Re sult [facility] [address] [place] [address], [place] [phone] * (ABNORMAL) C-reactive protein (03/30/2024 1:06 PM EST) C-Reactive Protein 5.59(H) <=0.50 mg/dL LAB CHEMISTRY METHOD 03/30/2024 2:56 PM EST [facility] Blood Venous blood specimen / Unknown Venipuncture / Unknown 03/30/2024 1:06 PM EST 03/30/2024 1:06 PM EST us Ashish WING LAB BLOOD ORDERABLES Final Re sult [facility] [address] [place] [address], * CT Chest wo Contrast (03/23/2024 12:58 PM EST) Anatomical Region Laterality Modality Body Computed Tomogra phy 03/23/2024 3:17 PM EST Impressions 03/23/2024 11:40 PM EST New subpleural opacities in the right upper lobe which could be infectious or inflammatory. ??Recommend follow-up CT in 3 months to ensure resolution. ??Chronic elevation of the left hemidiaphragm with chronic left basilar atelectasis. ??Milder right basilar atelectasis also present. Interval enlargement of the left adrenal nodule now measuring 2.5 cm compared with 1.8 cm on 08/08/2023. On the previous adrenal CT, it had washout indeterminate for a neoplasm. POS - [id number] -------- FINAL REPORT -------- Dictated By: Lizett Sanchez Dictated Date: 03/23/2024 15:17 ET Assigned Physician: Lizett Sanchez Reviewed and Electronically Signed By: Lizett Sanchez Signed Date: 03/23/2024 23:40 ET Workstation ID: [id number] Transcribed By: Self Edit Transcribed Date: 03/23/2024 16:46 ET Narrative 03/23/2024 11:40 PM EST EXAM: Chest CT HISTORY: Chronic obstructive pulmonary disease exacerbation. ??Abnormal chest x- ray. COMPARISON: ??Chest CT 02/07/2022 and 10/22/2017, chest radiography 02/19/2024, CT abdomen and pelvis 08/08/2023 TECHNIQUE: Multidetector CT is obtained from lung apex to base without IV contrast. Sagittal and coronal reformatted images obtained. ??Automated exposure control utilized. TOTAL CTDIvol: 17.33 mGy FINDINGS: Lungs/pleura: Chronic elevation of the left hemidiaphragm with chronic confluent opacities with air bronchograms at the bases of the lingula and left lower lobe which likely represent chronic atelectasis. ??Streaky and linear opacities with small air bronchograms in the posterior and posteromedial right lower lobe are probably related to atelectasis. ??New subpleural opacity in the lateral right upper lobe on image 81 with possible tiny air bronchograms. ??Abnormality measures 2.0 x 0.8 cm in the axial plane. ??Paraseptal emphysema again noted in the extreme apices. ??No pleural effusions. Lymph nodes: Sensitivity for lymphadenopathy is limited without IV contrast. ??Subcentimeter mediastinal lymph nodes. ??No definite enlarged hilar lymph nodes. Cardiovascular: Stable mild cardiomegaly. ??No pericardial effusion. ??Coronary calcifications. Stable dilatation of ascending aorta measuring 4.1 cm. ??Remainder of the aorta is ectatic. ??Stable mild dilatation of the pulmonary trunk. ??Stable abandoned wire in the SVC. Soft tissues: Thyroid gland is not enlarged. No esophageal abnormality. Upper abdomen: Enlargement of the left adrenal nodule compared with CT abdomen 08/08/2023 which now measures 2.5 cm compared with 1.8 cm previously. ??Nodule has density in the low 30's which is indeterminate for an adenoma. ??No definite right adrenal nodule. ??Numerous hepatic cysts again noted. ??Partially imaged right upper kidney cyst with stable minimal thin calcification in the wall. ??Colonic diverticulosis. Bones: Multilevel degenerative changes in the spine. ??Sternotomy wires. Procedure Note Lizett Sanchez MD - 03/23/2024 EXAM: Chest CT HISTORY: Chronic obstructive pulmonary disease exacerbation. Abnormalchest x- ray. COMPARISON: Chest CT 02/07/2022 and 10/22/2017, chest [id number]/2025, CT abdomen and pelvis 08/08/2023 TECHNIQUE: Multidetector CT is obtained from lung apex to base without IVcontrast. Sagittal and coronal reformatted images obtained. Automatedexposure control utilized. TOTAL CTDIvol: 17.33 mGy FINDINGS: Lungs/pleura: Chronic elevation of the left hemidiaphragm with chronicconfluent opacities with air bronchograms at the bases of the lingula andleft lower lobe which likely represent chronic atelectasis. Streaky andlinear opacities with small air bronchograms in the posterior andposteromedial right lower lobe are probably related to atelectasis. Newsubpleural opacity in the lateral right upper lobe on image 81 withpossible tiny air bronchograms. Abnormality measures 2.0 x 0.8 cm in theaxial plane. Paraseptal emphysema again noted in the extreme apices. Nopleural effusions. Lymph nodes: Sensitivity for lymphadenopathy is limited without IVcontrast. Subcentimeter mediastinal lymph nodes. No definite enlargedhilar lymph nodes. Cardiovascular: Stable mild cardiomegaly. No pericardial effusion.Coronary calcifications. Stable dilatation of ascending aorta measuring4.1 cm. Remainder of the aorta is ectatic. Stable mild dilatation of thepulmonary trunk. Stable abandoned wire in the SVC. Soft tissues: Thyroid gland is not enlarged. No esophageal abnormality. Upper abdomen: Enlargement of the left adrenal nodule compared with CTabdomen 08/08/2023 which now measures 2.5 cm compared with 1.8 cmpreviously. Nodule has density in the low 30's which is indeterminate chery adenoma. No definite right adrenal nodule. Numerous hepatic cystsagain noted. Partially imaged right upper kidney cyst with stable minimalthin calcification in the wall. Colonic diverticulosis. Bones: Multilevel degenerative changes in the spine. Sternotomy wires. IMPRESSION: New subpleural opacities in the right upper lobe which could be infectiousor inflammatory. Recommend follow-up CT in 3 months to ensure resolution.Chronic elevation of the left hemidiaphragm with chronic left basilaratelectasis. Milder right basilar atelectasis also present. Interval enlargement of the left adrenal nodule now measuring 2.5 cmcompared with 1.8 cm on 08/08/2023. On the previous adrenal CT, it hadwashout indeterminate for a neoplasm. POS - [id number] -------- FINAL REPORT -------- Dictated By: Lizett Sanchez Dictated Date: 03/23/2024 15:17 ET Assigned Physician: Lizett Sanchez Reviewed and Electronically Signed By: Lizett Sanchez Signed Date: 03/23/2024 23:40 ET Workstation ID: [id number] Transcribed By: Self Edit Transcribed Date: 03/23/2024 16:46 [address] W[address] IMG [address] PROCEDURES Final Result * XR Chest 2 Views (02/19/2024 11:09 [...] Signed Date: 02/19/2024 12:46 ET Workstation ID: [id number] Transcribed By: Self Edit Transcribed Date: 02/19/2024 [...] assessment. -------- FINAL REPORT -------- Dictated By: Sbuha Romero Dictated Date: 02/19/2024 12:44 ET Assigned Physician: Subha Romero Reviewed and Electronically Signed By: Subha Romero Signed Date: 02/19/2024 12:46 ET Workstation ID: [id number] Transcribed By: Self Edit Transcribed Date: 02/19/2024 12:44 ET Leonardo WING IMG XR PROCEDURES Final Result * (ABNORMAL) [id number], RSV, Influenza A and B qualitative RT-PCR (02/19/2024 10:58 AM EST) Pathologist [facility] SARS COV-2 Not Detected Not Detected LAB MOLECULAR DIAGNOSTICS METHOD 02/19/2024 10:49 PM [facility] Comment: Disclaimer: The manner in which this information is used to guide patient care is the responsibility of the healthcare provider. Testing was performed using the [employer] Al[employer] m SARS-CoV-2 test. This test has [...] for Healthcare Providers can be found at: https://www.fda.gov/media/966618/download Fact sheet for Patients can be found at: https://www.fda.gov/media/796921/download Influenza A PCR Not Detected Not Detected LAB MOLECULAR DIAGNOSTICS METHOD 02/19/2024 10:49 PM [facility] Influenza B PCR Not Detected Not Detected LAB MOLECULAR DIAGNOSTICS METHOD 02/19/2024 10:49 PM [facility] RSV PCR Detected(A ) Not Detected LAB MOLECULAR DIAGNOSTICS METHOD 02/19/2024 10:49 PM [facility] Swab Nasopharyngeal structure / Unknown Non-blood Collection / Unknown 02/19/2024 10:58 AM EST 02/19/2024 10:58 AM EST Leonardo WING LAB MICROBIOLOGY - GENERAL ORD ERABLES Final Result [facility] ([facility] [address] [place] [address], * Annual BMP Blood Test (09/20/2022) Annual BMP Blood Test abstracted Historical Provider HEALTH MAINTENANCE Final Result * Lipid panel (03/30/2020) Pathologist [facility] LDL/HDL Ratio 3 0 - 4 Triglycerides 114 0 - 150 mg/dL Cholesterol 132 0 - 200 mg/dL HDL 43 >=40 mg/dL LDL Cholesterol 67 0 - 100 mg/dL Blood Venous blood specimen / Unknown Historical Provider LAB BLOOD ORDERABLES Isela l Result * Hepatitis C Screening (06/19/2012) Pathologist [facility] Hepatitis C Screening abstracted Historical Provider HEALTH MAINTENANCE Final Result from Last 3 Months or Most Recently Relevant to Health Maintenance Insurance * Guarantor: Jay Gonzales Account Type Relation to Patient Date of Phone Billing Address Personal/Family Self 1945 [phone] [address] [place] [address] [facility] MEDICARE Care Teams 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
--- OUTSIDE RECORDS SUMMARY | 2024-04-17 14:51 | XMS_ITS | Encounter Summary ---
Author Organization [facility] Address [address] [place] [address] Care Team Providers Care Water Maintenance Supervisor Name Role Phone Evelyn Valdez MD Primary Care Prov ider Reason for Referral * Imaging (Routine) - Closed Specialty Diagnoses / Procedures Referred By Luci t Referred To Contact Radiology Diagnoses Acute upper respiratory infection, unspecified Pneumonia of right lower lobe due to infectious organism Procedures CT Chest wo Contrast CT Chest wo Contrast Leonardo Swenson PA [address] [place] [address] Phone: tel: fax: CT Scan - [address] Phone: tel: fax: Referral ID Status Reason Start Date Expiration Date Visits Re quested Visits Authorized [id number] Closed 02/19/2024 02/18/2025 1 1 Reason for Visit * Imaging (Routine) - Closed Specialty Diagnoses / Procedures Referred By Contbuffy t Referred To Contact Radiology Diagnoses Acute upper respiratory infection, unspecified Pneumonia of right lower lobe due to infectious organism Procedures CT Chest wo Contrast CT Chest wo Contrast Leonardo Swenson PA [address] [place] [address] Phone: tel: fax: CT Scan - [place] [address] [place] [address] Phone: tel: fax: Referral ID Status Reason Start Date Expiration Date Visits Re quested Visits Authorized [id number] Closed 02/19/2024 02/18/2025 1 1 Encounter Details Date Type Department Care Team (Latest Contact Info) Description 03/23/2024 12:37 PM EST - 03/23/2024 11:59 PM EST Hospital Encounter CT Scan - [facility] [address] [place] [address] Acute upper respiratory infection, unspecified; Pneumonia of right lower lobe due to infectious organism Discharge Disposition: Home or Self Care Social [...] 7.5mg, all other days takes 5mg 07/02/2023 predniSONE (DELTASONE) 10 mg tablet TAKE 4 [...] 04/21/2024 2:15 PM EDT Office Visit Endocrinology [facility] [address] [place] [phone] Garo Florez MD [address] [place] [address] 05/12/2024 1:15 PM EDT Office Visit Orthopedic Surgery [facility] [address] [phone] Donny Hughes DPM [address] [phone] documented as of this encounter Procedures Procedure Name Priority Date/Time Associated Diagnosis Comments CT CHEST WO CONTRAST Routine 03/23/2024 12:58 PM EST Acute upper respiratory infection, unspecified Pneumonia of right lower lobe due to infectious organism documented in this encounter Results * CT Chest wo Contrast (03/23/2024 12:58 [...] washout indeterminate for a neoplasm. POS - [id number] -------- FINAL REPORT -------- Dictated By: Lizett Sanchez Dictated Date: 03/23/2024 15:17 ET Assigned Physician: Lizett Sanchez Reviewed and Electronically Signed By: Lizett Sanchez Signed Date: 03/23/2024 23:40 ET Workstation ID: [id number] Transcribed By: Self Edit Transcribed Date: 03/23/2024 [...] COMPARISON: Chest CT 02/07/2022 and 10/22/2017, chest [id number]/08/2025, CT abdomen and pelvis 08/08/2023 TECHNIQUE: Multidetector [...] hadwashout indeterminate for a neoplasm. POS - [id number] -------- FINAL REPORT -------- Dictated By: Lizett Sanchez Dictated Date: 03/23/2024 15:17 ET Assigned Physician: Lizett Sanchez Reviewed and Electronically Signed By: Lizett Sanchez Signed Date: 03/23/2024 23:40 ET Workstation ID: [id number] Transcribed By: Self Edit Transcribed Date: 03/23/2024 16:46 ET Leonardo WING IMG CT PROCEDURES Final Result documented in this encounter Visit Diagnoses Diagnosis Acute upper respiratory infection, unspecified Pneumonia of right lower lobe due to infectious organism documented in this encounter Additional Health Concerns Assessment Noted Time PHQ-9 Depression Total Score: 0 01/06/20 24 1:14 PM EST A fall risk assessment has been complete d for the patient 01/06/2024 1:11 PM EST documented as of this encounter Care Teams Water Maintenance Supervisor Relationship Specialty Start Date End Date Evelyn Valdez MD [address] [place] [id number] PCP - General Internal Medicine 12/09/18 documented as of this encounter
== END 2024-04-17 13:32 | disposition home or self-care (01) ==
LOC: HO.ACS 13:14
PROVIDERS: PCP Internal Medicine; Visit Provider Internal Medicine
DX: Z79.01 Long term (current) use of anticoagulants (principal)

== ENCOUNTER → 2024-04-17 13:14 | Outpatient (BNVA) | payer MEDICARE, SELFPAY | PROVIDERS: PCP Internal Medicine; Visit Provider Internal Medicine | DX: I48.19 Other persistent atrial fibrillation (principal); Z86.718 Personal history of other venous thrombosis and embolism; Z79.01 Long term (current) use of anticoagulants; Z51.81 Encounter for therapeutic drug level monitoring | CPT/HCPCS: 85610; 99211 ==

== ENCOUNTER 2024-05-08 13:11 | Outpatient (AMB) | payer MEDICARE, SELFPAY ==
--- NOTE | 2024-05-08 13:50 | MHC.OFFVISCO ---
Intake Intake Visit Reasons: Anticoagulation Allergies albuterol Adverse Reaction (Intermediate, Verified 05/08/24 13:41) Palpitations amoxicillin [From Augmentin] Adverse Reaction (Intermediate, Verified 05/08/24 13:41) Nausea and Vomiting, dizziness clavulanic acid [From Augmentin] Adverse Reaction (Intermediate, Verified 05/08/24 13:41) Nausea and Vomiting, dizziness Medication List - Last Reconciled 05/08/24 by Lottie Avila RN acetaminophen 1,000 mg PO Q6H PRN acetazolamide 250 mg PO DAILY atorvastatin 20 mg PO DAILY azithromycin 250 mg PO MOWEFR diltiazem HCl CD 120 mg PO DAILY docusate sodium 200 mg PO DAILY flecainide 100 mg PO Q12H fluticasone propion-salmeterol 250-50 mcg/dose (Wixela Inhub) 1 inh inhalation Q12H 30 days furosemide 80 mg (2 x 40 mg) PO DAILY levalbuterol HCl 1.25 mg (0.5 mL) inhalation RQ4H WHILE AWAKE 90 days levalbuterol tartrate 45 mcg/actuation 2 puffs inhalation Q4-6H PRN 90 days multivitamin 1 tab PO DAILY potassium chloride ER 10 mEq PO DAILY sennosides (senna) 25.8 mg PO BEDTIME warfarin See Protocol 7.5 mg orally 7.5 X 4 DAYS/ 5MG X 3 DAYS; Nursing Note INR: 2.3 in therapeutic range of 2-3 Medications and supplements reviewed No changes in health, diet, medications, or supplements, Denies any signs and symptoms of bleeding or bruising or clotting. Bleeding, bruising, clotting discussed Nutritional guidance given Dose: 5mg X 5 days and 7.5mg X 2 days F/U INR: 3 weeks Patient verbalizes understanding of instructions given Anti-Coag Initial Assessment Social Hx Patient Tobacco Use Status: Former Tobacco user alcohol intake: current Alcohol intake frequency: holidays/special occasions only Coding Level of Care Code Est Patient Level 1 Diagnoses Current use of anticoagulant therapy Z79.01 Results AMB INR Fingerstick AMB INR Fingerstick 2.3 Last Edit by Lottie Avila RN on 05/08/24 13:48 interface delay Assessment & Plan Assessment & Plan (1) Current use of anticoagulant therapy: Code(s): Z79.01 - FDC (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
[2024-05-08 13:56] LABS: Prothrombin Time Whole Bld POC 28.1 sec (11.1-13.5); ~PT, ~INR - Anti Coag Clinic 2.3 (0.9-1.1)
== END 2024-05-08 13:54 | disposition home or self-care (01) ==
LOC: HO.ACS 13:11
PROVIDERS: PCP Internal Medicine; Visit Provider Internal Medicine Medical Oncology
DX: Z79.01 Long term (current) use of anticoagulants (principal)

== ENCOUNTER → 2024-05-08 13:11 | Outpatient (BNVA) | payer MEDICARE, SELFPAY | PROVIDERS: PCP Internal Medicine; Visit Provider Internal Medicine Medical Oncology | DX: I48.19 Other persistent atrial fibrillation (principal); Z86.718 Personal history of other venous thrombosis and embolism; Z79.01 Long term (current) use of anticoagulants; Z51.81 Encounter for therapeutic drug level monitoring | CPT/HCPCS: 85610; 99211 ==

== ENCOUNTER 2024-05-19 13:40 | Outpatient (AMB) | payer MEDICARE, SELFPAY ==
[2024-05-19 14:03] VITALS: BP 110/62; PULSE 77; O2SAT 94; BMI 39.3
--- NOTE | 2024-05-19 14:03 | MHC.OFFVIS ---
Vital Signs 05/19/24 14:03 Height 5 ft 7 in Weight 251 lb BMI 39.3 BP 110/62 Blood Pressure Location Lt brachial Position Sitting Pulse 77 Pulse Source Pulse Oximeter Pulse Oximetry (%) 94 Oxygen Delivery Method Room Air Intake Visit Reasons: Obstructive sleep apnea Intake Note: pt is here for DEREK follow up and is doing okay, but would like to discuss pressure on cpap, pt needs refill on azithromycin for a 90 days supply sent to [email or web address]. 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: No Allergies albuterol Adverse Reaction (Intermediate, Verified 05/19/24 14:29) Palpitations amoxicillin [From Augmentin] Adverse Reaction (Intermediate, Verified 05/19/24 14:29) Nausea and Vomiting, dizziness clavulanic acid [From Augmentin] Adverse Reaction (Intermediate, Verified 05/19/24 14:29) Nausea and Vomiting, dizziness Medication List - Last Reconciled 05/19/24 by Cheli Clarke MD acetaminophen 1,000 mg PO Q6H PRN acetazolamide 250 mg PO DAILY atorvastatin 20 mg PO DAILY azithromycin 250 mg PO MOWEFR diltiazem HCl CD 120 mg PO DAILY docusate sodium 200 mg PO DAILY flecainide 100 mg PO Q12H fluticasone propion-salmeterol 250-50 mcg/dose (Wixela Inhub) 1 inh inhalation Q12H 30 days furosemide 80 mg (2 x 40 mg) PO DAILY levalbuterol HCl 1.25 mg (0.5 mL) inhalation RQ4H WHILE AWAKE 90 days levalbuterol tartrate 45 mcg/actuation 2 puffs inhalation Q4-6H PRN 90 days multivitamin 1 tab PO DAILY potassium chloride ER 10 mEq PO DAILY sennosides (senna) 25.8 mg PO BEDTIME warfarin See Protocol 7.5 mg orally 7.5 X 4 DAYS/ 5MG X 3 DAYS; Do you need a note to return to daycare/school/sports/work: No HPI HPI Obstructive sleep apnea: Details: This 78 years old very pleasant gentleman is here for his routine follow-up after 4 months. During the past 4 months he has been relatively stable without any acute exacerbations. He uses CPAP very regularly every night. 1 interesting thing that he told us was that whenever he goes for CT scan, he can not lie flat unless he uses the CPAP at that time. He has gotten off prednisone, still using azithromycin 250 mg 3 times a week. He is doing relatively well and remains stable. [facility] Medical History CHF (congestive heart failure) Hypoventilation Restrictive airway disease (HFpEF) heart failure with preserved ejection fraction CHF exacerbation Cough Paroxysmal atrial fibrillation Lymphedema of both lower extremities DEREK on CPAP Obesity (BMI 35.0-39.9 without comorbidity) COPD (chronic obstructive pulmonary disease) Varicose veins of right lower extremity with inflammation Surgical History History of appendectomy Family History Father No problems noted. Mother No problems noted. Sister No problems noted. Sister No problems noted. Son No problems noted. Daughter No problems noted. Social History Household Members: Family Housing: House Are you a primary career manager to a significant other at home: No Do you presently have visiting nurse or other home services: No Alcohol intake: current Alcohol intake frequency: holidays/special occasions only Alcohol type: beer Comment: PT USES CALL LIGHT APPROPRIATELY Patient Tobacco Use Status: Former Tobacco user Advance Directives Date on File: 03/05/24 service: Yes Current occupational status: retired Review of Systems Const All systems reviewed & are unremarkable except as noted in HPI and below Eyes Reports no additional complaints ENT Reports nasal congestion (Mild intermittent) Card Denies chest pain, Denies irregular heart rhythm, Reports leg edema and Reports dyspnea on exertion Resp Reports as per HPI and Reports dyspnea on exertion GI Reports no additional complaints Reports no additional complaints Musc Reports no additional complaints Skin/Breast Reports system reviewed and no additional complaints, except as documented Neuro Reports no additional complaints Psych Reports no additional complaints Physical Exam Vital Signs: Last Vital Signs Pulse 77 05/19/24 14:03 BP 110/62 05/19/24 14:03 Pulse Ox 94 05/19/24 14:03 Oxygen Delivery Method Room Air 05/19/24 14:03 BMI result Body Mass Index 39.3 Const General: comfortable, no acute distress, alert and awake Orientation/consciousness: patient oriented x3 HEENT Head: Yes normal to inspection General nose exam: No nasal polyps present and No nasal discharge present Face and sinus: Yes sinuses nontender Mouth: oropharynx abnormals (Narrow and crowded, Mallampati class 3) Throat: Yes posterior oropharynx normal Eyes General: appearance normal, both eyes and all related structures Neck Neck: Yes normal visual inspection, Yes no lymphadenopathy, Yes trachea midline and Yes no JVD Thyroid: Thyroid normal Chest Chest palpation & inspection: normal inspection of the chest (Except for midline scar from previous surgery.), normal palpation of entire chest wall and no tenderness Resp Other: Percussion note resonant, breath sounds are distant on both sides, and decreased especially over the LEFT BASE. Prolonged expiratory phase. There are no wheezes or crepitations. Cardio Palpation: normal PMI Rate: regular rate Rhythm: regular rhythm Heart sounds: no gallops and Murmur heart sound present (A LOUD SYSTOLIC MURMUR ALONG THE LEFT STERNAL BORDER) GI Palpation (GI): Soft to palpation, nontender, No hepatosplenomegaly present, no masses and Other GI palpation findings present (Abdomen is the obese and protuberant) Auscultation: normal bowel sounds Back/Spine/Pelvis Thoracic/Lumbar Spine: thoracic and lumbar spine normal to inspection Skin General skin exam: no rashes or lesions noted Neuro General: patient oriented x3 and no focal motor deficits Cranial nerves: Yes CN's II-XII intact bilaterally Extrem General: Yes normal to inspection, Yes no calf tenderness and Yes venous stasis dermatitis (Both legs, more severe on the right side) Psych Mental Status: mental status grossly normal Speech and movement: Normal speech and movement present Results Reviewed Results Reviewed: CPAP compliance report for the last 30 nights is reviewed. He has used 30/30 nights,. 100% Average use it per night 6 hours 22 minutes. There is no significant. Air leakage Residual AHI 0.9 Assessment & Plan Assessment & Plan (1) COPD (chronic obstructive pulmonary disease): Comment: COPD IS REMAINING QUITE STABLE WITH THE REGULAR REGIMEN,. HE HAS HAD NO INCREASE IN RESPIRATORY SYMPTOMS. 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 STILL CONTINUE TO USE AZITHROMYCIN 250 MG 3 DAYS A WEEK. WIXELA 250-51 INHALATION B.I.D. LEVALBUTEROL 1.25 MG SOLUTION IN THE NEBULIZER Q 6 HOURS P.R.N. LEVALBUTEROL-452 PUFFS Q 4-6 HOURS P.R.N. WHEN OUTDOORS (2) Restrictive airway disease: Comment: HE HAS CHRONICALLY ELEVATED LEFT HEMIDIAPHRAGM, THIS CONTRIBUTES TO HIS RESTRICTIVE LUNG DISORDER. Code(s): J98.4 - Other disorders of lung Category: Medical Plan: ADVISED TO CONTINUE DOING DEEP BREATHING EXERCISES 3 TIMES A DAY . (3) Hypoventilation: Comment: HE HAS CHRONIC HYPOVENTILATION , WITH HYPERCAPNIA. Part of COPD as well as DEREK , well controlled with the use of CPAP + 15 Cms ) Code(s): R06.89 - Other abnormalities of breathing Category: Medical Plan: CONTINUE TO USE CPAP REGULARLY CONTINUE TO TAKE ACETAZOLAMIDE 250 MG ONCE A DAY. Coding Level of Care Code Est Pt Level 3 (08014) Diagnoses COPD (chronic obstructive pulmonary disease) J44.1 COPD type: COPD with acute exacerbation Restrictive airway disease J98.4 Hypoventilation R06.89
--- OUTSIDE RECORDS SUMMARY | 2024-05-19 16:39 | XMS_ITS | Clinical Summary ---
Author Organization [facility] [address] [facility] lding Address [address] [place] [address] Phone Care Team Providers Care Batteryman Name Role Phone Evelyn Valdez MD Primary [...] 100 mg by mouth. 7 Active fluticasone propion-salmete roL (Wixela Inhub) 500-50 [...] minutes after Active doxycycline (VIBRAMYCIN) 100 mg capsuleIndicati ons:Cellulitis of right lower extremity Take 1 capsule [...] zinc). 20 each 5 04/24/19 25 Active Problems Problem Noted Date Diagnosed Date Chronic deep vein thrombosis (DVT) of lower extr emity 11/07/2023 Overview (11/07/2023): Recurrent Diastolic heart failure 07/06/2021 Overview (11/07/2023): Dr. Nava. Grade 1 diastolic dysfunction clinically euvolemic and well compensated Diastolic dysfunction, left ventricle 06/30/2021 Overview (11/07/2023): 06/30/2021 Dr. Elijah Olivas cardiology. No clinical [...] leg 1989, PE and DVT recurrent 02/1990, deaver filter placed. Anticoagulation- warfarin Encounters Date Type Department Care Team Description 05/12/2024 1:15 PM EDT Office Visit Orthopedic Surgery - [address] [phone] Donny Hugehs DPM Arthritis of both ankles (Primary Dx); Dermatophytosis of nail; Peripheral venous insufficiency 05/05/2024 4:30 PM EDT Office Visit Endocrinology - [address] [phone] Garo Florez MD Adenoma of left adrenal gland 04/15/2024 3:52 PM EST - 04/15/2024 11:59 PM EST Hospital Encounter Radiology Department - [address] [phone] Deep vein thrombosis (DVT) of distal vein of right lower extremity, unspecified chronicity (CMS/HCC) Discharge Disposition: Home or Self Care 04/13/2024 1:30 PM EST Office Visit Adult Medicine [address] [phone] Evelyn Valdez MD Cellulitis of right lower extremity (Primary Dx); Dysphagia, unspecified type; Deep vein thrombosis (DVT) of distal vein of right lower extremity, unspecified chronicity (CMS/HCC) 03/30/2024 1:14 PM EST - 03/30/2024 11:59 PM EST [facility] [place] [phone] Pain and swelling of right knee; Fall, initial encounter Discharge Disposition: Home or Self Care 03/30/2024 12:30 PM EST Office Visit Adult [address] [phone] Ashish Medeiros PA Pain and swelling of right knee (Primary Dx); Fall, initial encounter; Chronic deep vein thrombosis (DVT) of proximal vein of right lower extremity ([facility]/HCC) 03/30/2024 Telephone Adult [address] [phone] Evelyn Valdez MD Knee Injury (Right Knee Pain ); Fall 03/23/2024 12:37 PM EST - 03/23/2024 11:59 PM EST Hospital Encounter CT Scan [address] [phone] Acute upper respiratory infection, unspecified; Pneumonia of right lower lobe due to infectious organism Discharge Disposition: Home or Self Care 03/17/2024 2:45 PM EST Office Visit Adult [address] [phone] Evelyn Valdez MD Chronic diastolic heart failure ([facility]) (Primary Dx); Pneumonia of both lungs due to infectious organism, unspecified part of lung; Chronic bronchitis, unspecified chronic bronchitis type ([facility]/HCC) 02/27/2024 Telephone Adult [facility] [place] [phone] Leonardo Swenson PA URI; Wheezing 02/19/2024 11:00 AM EST - 02/19/2024 11:59 PM EST [facility] [place] [phone] Ear pain, left; DEREK and COPD overlap syndrome (CMS/HCC) Discharge Disposition: Home or Self Care 02/19/2024 10:30 AM EST Office Visit Adult [address] [phone] Leonardo Swenson PA Acute upper respiratory infection, unspecified (Primary Dx); Ear pain, left; DEREK and COPD overlap syndrome (CMS/HCC); Ischemic cardiomyopathy; Chronic diastolic heart failure (CMS/HCC); Hypercholesterolemia 02/19/2024 Telephone Adult Medicine - [place] [address] [place] [phone] Leonardo Swenson PA 02/19/2024 Telephone Adult Medicine - [place] [address] [place] [phone] Evelyn Valdez MD from Last 3 Months Immunizations Name [...] COMMENT: Non obstructive CAD-mild disease APPENDECTOMY PROCEDURE: MO APPENDECTOMY OTHER SURGICAL HISTORY 09/28/2021 Right PROCEDURE: MO ENDOVEN ABLTJ INCMPTNT VEIN XTR LASER 1ST VEIN; COMMENT: Dr. Wall Medical History Medical History Date Comments Atrial flutter (CMS/HCC) 12/11/2018 DX:Atri al flutter ([facility]); COMMENT: On warfarin Adrenal adenoma 04/10/2016 [...] (CMS/HCC) 12/12/2018 DX:COPD (chronic obstructive pulmonary disease) ([facility]); COMMENT: Moderately severe Diverticulosis 09/22/2010 DX:Diverticulosi [...] Metabolic syndrome 11/03/2010 DX:Metabolic syndrome Pulmonary embolism 09/22/2010 DX:Pulmonary embolism (HCC); COMMENT: DVT right [...] for your loved ones. 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 or elderly care for an older [...] Information Value Date Recorded Sex Assigned at Male 04/21/2024 11:38 AM EDT Legal Sex Male 3:18 PM EST Gender Identity Male 04/21/2024 11:38 AM EDT Sexual Orientation Straight 04/21/2024 11 :38 AM EDT Occupation Industry Job Start Date Job End Date RETIRED Not on file Not on file Not on file Obstetrics History Last Filed Vital Signs Vital Sign Reading Time Taken Comments Blood Pressure 114/59 05/05/2024 4:28 PM EDT Pulse 72 05/05/2024 4:28 PM EDT Temperature 36.2 ??C (97.2 ??F) 05/05/2024 4:28 PM ED T Respiratory Rate - - Oxygen Saturation 93% 05/05/2024 4:28 PM EDT Inhaled Oxygen Concentration - - Weight 114 kg (250 lb 12.8 oz) 05/05/2024 4:28 P M EDT Height 175.3 cm (5' 9 ) 05/05/2024 4:28 PM EDT Body Mass Index 37.04 05/05/2024 4:28 PM EDT Plan of Treatment Upcoming Encounters Date Type Department Care Team (Late st Contact Info) Description 06/15/2024 8:30 AM EDT Appointment [facility] [address] [place] [phone] 08/18/2024 1:00 PM EDT Office Visit Orthopedic Surgery [facility] [address] [phone] Donny Hughes, DPM [address] [phone] Health Maintenance Due Date Last Done Comments [...] Vaccine Completed 11/25/2023, , 11/01/2021 RSV Immunization Adult Patients Completed 11/25/2023 HIB Vaccines Aged Out No [...] age to complete this topic Meningococcal B Vaccine Aged Out No l onger eligible based on patient's age to complete [...] left DEREK and COPD overlap syndrome (CMS/HCC) [id number], RSV, FLU A AND B QUALITATIVE RT-PCR, [...] Signed Date: 04/15/2024 16:45 ET Workstation ID: [id number] Transcribed By: Self Edit Transcribed Date: 04/15/2024 [...] Signed Date: 04/15/2024 16:45 ET Workstation ID: [id number] Transcribed By: Self Edit Transcribed Date: 04/15/2024 [...] Signed Date: 03/30/2024 13:56 ET Workstation ID: [id number] Transcribed By: Self Edit Transcribed Date: 03/30/2024 [...] Signed Date: 03/30/2024 13:56 ET Workstation ID: [id number] Transcribed By: Self Edit Transcribed Date: 03/30/2024 13:45 ET Ashish WING IMG XR PROCEDURES Final Resul t * (ABNORMAL) Manual differential (03/30/2024 1:06 PM EST) Neutrophils % 68.0 % LAB HEMETOLOGY METHOD 03/30/2024 3:44 PM [facility] Bands % 2.0 % LAB HEMETOLOGY METHOD 03/30/2024 3:44 PM [facility] Lymphocytes % 10.0 % LAB HEMETOLOGY METHOD 03/30/2024 3:44 PM [facility] Reactive Lymphocyte 1.00 % LAB HEMETOLOGY METHOD 03/30/2024 3:44 PM [facility] Monocytes % 17.0 % LAB HEMETOLOGY METHOD 03/30/2024 3:44 PM [facility] Eosinophils % 0.0 % LAB HEMETOLOGY METHOD 03/30/2024 3:44 PM [facility] Basophils % 0.0 % LAB HEMETOLOGY METHOD 03/30/2024 3:44 PM [facility] Promyelocytes % 3.0(H) % LAB HEMETOLOGY METHOD 03/30/2024 3:44 PM [facility] Neutrophils Absolute Manual 7.55(H) 1.50 - 7.00 K/mcL LAB HEMETOLOGY METHOD 03/30/2024 3:44 PM [facility] Bands Absolute Manual 0.22(H) 0.00 - 0.00 K/mcL LAB HEMETOLOGY METHOD 03/30/2024 3:44 PM [facility] Lymphocytes Absolute 1.11 1.00 - 5.00 K/mcL LAB HEMETOLOGY METHOD 03/30/2024 3:44 PM [facility] Reactive Lymph Abs Manual 0.11(H) 0.00 - 0.00 lym LAB HEMETOLOGY METHOD 03/30/2024 3:44 PM EST [facility] Monocytes Absolute Manual 1.89(H) 0.20 - 1.00 K/[facility] LAB HEMETOLOGY METHOD 03/30/2024 3:44 PM EST [facility] Eosinophils Absolute Manual 0.00 0.00 - 0.50 K/mcL LAB HEMETOLOGY METHOD 03/30/2024 3:44 PM EST [facility] Basophils Absolute Manual 0.00 0.00 - 0.20 K/[facility] LAB HEMETOLOGY METHOD 03/30/2024 3:44 PM EST [facility] Promyelocytes Absolute Manual 0.33(H) 0.00 - 0.00 K/[facility] LAB HEMETOLOGY METHOD 03/30/2024 3:44 PM EST [facility] Rbc Morphology Present( A) Consistent with indices, Normal for LAB HEMETOLOGY METHOD 03/30/2024 3:44 PM EST [facility] Comment:RBC: Morphology agre es with CBC Platelet Morphology - WAM See Note(A) Normal LAB HEMETOLOGY METHOD 03/30/2024 3:44 PM EST [facility] Comment:PLT: Large platelets seen Toxic Granules Present Present( A) (none) LAB HEMETOLOGY METHOD 03/30/2024 3:44 PM EST [facility] Blood Venous blood specimen / Unknown Venipuncture / Unknown 03/30/2024 1:06 PM EST 03/30/2024 1:06 PM EST us Ashish WING LAB BLOOD ORDERABLES Final Re sult [facility] [address] [place] [address], [place] [phone] * (ABNORMAL) CBC auto differential (03/30/2024 1:06 PM EST) WBC 11.1(H) 4.8 - 10.8 K/mcL LAB HEMETOLOGY METHOD 03/30/2024 3:44 PM [facility] RBC 4.30(L) 4.50 - 5.50 M/mcL LAB HEMETOLOGY METHOD 03/30/2024 3:44 PM [facility] Hemoglobin 12.5(L) 13.5 - 17.5 g/dL LAB HEMETOLOGY METHOD 03/30/2024 3:44 PM [facility] Hematocrit 40.1(L) 42.0 - 54.0 % LAB HEMETOLOGY METHOD 03/30/2024 3:44 PM [facility] MCV 94.1 79.0 - 98.0 FL LAB HEMETOLOGY METHOD 03/30/2024 3:44 PM [facility] MCH 29.3 27.0 - 32.0 pcg LAB HEMETOLOGY METHOD 03/30/2024 3:44 PM [facility] MCHC 31.2(L) 32.0 - 37.0 g/dL LAB HEMETOLOGY METHOD 03/30/2024 3:44 PM [facility] RDW 16.0(H) 11.0 - 15.0 % LAB HEMETOLOGY METHOD 03/30/2024 3:44 PM [facility] Platelets 102(L) 130 - 400 K/[facility] LAB HEMETOLOGY METHOD 03/30/2024 3:44 PM [facility] MPV 10.5 7.0 - 11.0 FL LAB HEMETOLOGY METHOD 03/30/2024 3:44 PM [facility] NRBC 0.0 <1.0 % LAB HEMETOLOGY METHOD 03/30/2024 3:44 PM [facility] NRBC Absolute 0.00 <0.10 K/mcL LAB HEMETOLOGY METHOD 03/30/2024 3:44 PM EST [facility] Blood Venous blood specimen / Unknown Venipuncture / Unknown 03/30/2024 1:06 PM EST 03/30/2024 1:06 PM EST Ashish WING LAB BLOOD ORDERABLES Final Re sult Performing Organization Address [facility]/ZIP Co de Phone Number [facility] [address] [place] [address], [place] [phone] * (ABNORMAL) Prothrombin time with INR (03/30/2024 1:06 PM EST) Pathologist [facility] Protime 32.2(H) 10.6 - 13.9 sec LAB COAGULATION METHOD 03/30/2024 2:26 PM EST [facility] INR 2.6 LAB COAGULATION METHOD 03/30/2024 2:26 PM EST [facility] Blood Venous blood specimen / Unknown Venipuncture / Unknown 03/30/2024 1:06 PM EST 03/30/2024 1:06 PM EST us Ashish WING LAB BLOOD ORDERABLES Final Re sult Performing Organization Address [facility] Co de Phone Number [facility] [address] [place] [address], [place] [phone] * (ABNORMAL) C-reactive protein (03/30/2024 1:06 PM EST) [facility] C-Reactive Protein 5.59(H) <=0.50 mg/dL LAB CHEMISTRY METHOD 03/30/2024 2:56 PM EST [facility] Blood Venous blood specimen / Unknown Venipuncture / Unknown 03/30/2024 1:06 PM EST 03/30/2024 1:06 PM EST Ashish WING LAB BLOOD ORDERABLES Final Re sult Performing Organization Address City/[facility]/ZIP Co de Phone Number [facility] [address] [place] [address], * CT Chest wo Contrast (03/23/2024 12:58 [...] washout indeterminate for a neoplasm. POS - [id number] -------- FINAL REPORT -------- Dictated By: Lizett Sanchez Dictated Date: 03/23/2024 15:17 ET Assigned Physician: Lizett Sanchez Reviewed and Electronically Signed By: Lizett Sanchez Signed Date: 03/23/2024 23:40 ET Workstation ID: [id number] Transcribed By: Self Edit Transcribed Date: 03/23/2024 [...] COMPARISON: Chest CT 02/07/2022 and 10/22/2017, chest tsgxprpfgik08/08/2025, CT abdomen and pelvis 08/08/2023 TECHNIQUE: Multidetector [...] hadwashout indeterminate for a neoplasm. POS - [id number] -------- FINAL REPORT -------- Dictated By: Lizett Sanchez Dictated Date: 03/23/2024 15:17 ET Assigned Physician: Lizett Sanchez Reviewed and Electronically Signed By: Lizett Sanchez Signed Date: 03/23/2024 23:40 ET Workstation ID: [id number] Transcribed By: Self Edit Transcribed Date: 03/23/2024 [...] Signed Date: 02/19/2024 12:46 ET Workstation ID: [id number] Transcribed By: Self Edit Transcribed Date: 02/19/2024 [...] Signed Date: 02/19/2024 12:46 ET Workstation ID: [id number] Transcribed By: Self Edit Transcribed Date: 02/19/2024 12:44 ET Leonardo WING IMG XR PROCEDURES Final Result * (ABNORMAL) [id number], RSV, Influenza A and B qualitative RT-PCR (02/19/2024 10:58 AM EST) SARS COV-2 Not Detected Not Detected LAB MOLECULAR DIAGNOSTICS METHOD 02/19/2024 10:49 PM [facility] Comment: Disclaimer: The manner in which this information is used to guide patient care is the responsibility of the healthcare provider. Testing was performed using the [employer] Al[employer] m SARS-CoV-2 test. This test has [...] for Healthcare Providers can be found at: https://www.fda.gov/media/136947/download Fact sheet for Patients can be found at: https://www.fda.gov/media/449267/download Influenza A PCR Not Detected Not Detected LAB MOLECULAR DIAGNOSTICS METHOD 02/19/2024 10:49 PM EST [facility] Influenza B PCR Not Detected Not Detected LAB MOLECULAR DIAGNOSTICS METHOD 02/19/2024 10:49 PM EST [facility] RSV PCR Detected(A ) Not Detected LAB MOLECULAR DIAGNOSTICS METHOD 02/19/2024 10:49 PM [facility] Swab Nasopharyngeal structure / Unknown Non-blood Collection / Unknown 02/19/2024 10:58 AM EST 02/19/2024 10:58 AM EST Leonardo WING LAB MICROBIOLOGY - GENERAL ORD ERABLES Final Result [facility] [address] [place] [address], [place] [phone] * Annual BMP Blood Test (09/20/2022) Pathologist [facility] Annual BMP Blood Test abstracted Historical Provider HEALTH MAINTENANCE Final Result * Lipid panel (03/30/2020) [facility] LDL/HDL Ratio 3 0 - 4 Triglycerides 114 0 - 150 mg/dL Cholesterol 132 0 - 200 mg/dL HDL 43 >=40 mg/dL LDL Cholesterol 67 0 - 100 mg/dL Blood Venous blood specimen / Unknown Historical Provider MD LAB BLOOD ORDERABLES Isela l Result * Hepatitis C Screening (06/19/2012) [facility] Hepatitis C Screening abstracted Historical Provider HEALTH MAINTENANCE Final Result from Last 3 Months or Most Recently Relevant to Health Maintenance Insurance * Guarantor: Jay Gonzales Account Type Relation to Patient Date of Phone Billing Address Personal/Family Self 1945 [phone] ([phone] [place] [address] [employer] MED[employer]ARE Care Teams Batteryman Relationship Specialty Start Date End Date Evelyn Valdez MD [address] [place] [phone] PCP - General Internal Medicine 12/09/18
--- OUTSIDE RECORDS SUMMARY | 2024-05-19 16:40 | XMS_ITS | Continuity of Care Document ---
Author Name [facility] Organization [facility] Care Team Providers Care Turbo Operator Name Role Phone [facility] Unavailable Unavailable Problems Problem Status Onset Date Classification Date Reported Comments Source Acute embolism and thrombosis of unspeci Active 11/28/2021 [facility] Acute respiratory failure with hypoxia Active 11/28/2021 12/02/2021 45 [facility] COPD exacerbation Active 11/28/2021 12/02/2021 45 [facility] Influenza A Active 11/28/2021 12/02/2021 45 [facility] Paroxysmal atrial fibrillation Active 11/28/2021 12/02/2021 45 [facility] Anticoagulated Active 11/28/2021 12/02/2021 45 [facility] Morbid obesity Active 11/28/2021 12/02/2021 45 [facility] Shortness of breath Active [facility] Medications Medication Details Route Status Patient Instructions Ordering Provider Order Date Source guaiFENesin 600 mg oral tablet, extended release = 1 Tab, ORAL, BID, X 5 Day(s), # 10 Tab, 0 Refill(s), Acute, Pharmacy: [facility], 175.6, cm, 11/28/21 6:49:00 HST, Height/Length (cm), 117.8, kg, 11/28/21 6:49:00 HST, Dose calculation weight (kg) Active 022 45 [facility] Albuterol (Eqv-Proventil HFA) 90 mcg/inh inhalation aerosol 2 Puff, INH, Q6H, # 8.5 gm, 0 Refill(s), Maintenance, Pharmacy: [facility], 175.6, cm, 11/28/21 6:49:00 HST, Height/Length (cm), 117.8, kg, 11/28/21 6:49:00 HST, Dose calculation weight (kg) Active [facility] Tamiflu 75 mg oral capsule = 1 Cap, ORAL, BID, X 2 Day(s), # 4 Cap, 0 Refill(s), [facility], 175.[facility], cm, 11/28/21 6:49:00 HST, Height/Length (cm), 117.8, kg, 11/28/21 6:49:00 HST, Dose calculation weight (kg) Active [facility] predniSONE 50 mg oral tablet = 1 Tab, ORAL, DAILY, X 5 Day(s), # 5 Tab, 0 Refill(s), Acute, Pharmacy: [facility], 175.6, cm, 11/28/21 6:49:00 HST, Height/Length (cm), 117.8, kg, 11/28/21 6:49:00 HST, Dose calculation weight (kg) Active [facility] multivitamin oral 1 Tab, ORAL, DAILY, OTC, Maintenance Active [facility] Senna = 1 Tab, ORAL, DAILY, OTC, Maintenance Active [facility] warfarin 5 mg oral tablet = 1.5 Tab, ORAL, QTThSa, Maintenance Active [facility] PREPACK Albuterol (0.83 mg/mL) 2.5mg/3mL #6 3 mL, INH, Q4H, PRN Shortness of breath/wheezin g, Maintenance Active [facility] Wixela Inhub 500 mcg-50 mcg inhalation powder 1 Inhalation, INH, BID, Maintenance Active [facility] warfarin 5 mg oral tablet = 1 Tab, ORAL, QSuMWF, 0 Refill(s), Maintenance Active [facility] DilTIAZem (Eqv-Cardizem CD) 120 mg/24 hours oral capsule, extended release = 1 Cap, ORAL, DAILY, 0 Refill(s), Maintenance Active [facility] Klor-Con 10 mEq oral tablet, extended release = 1 Tab, ORAL, DAILY, 0 Refill(s), Maintenance Active 45 [facility] flecainide 50 mg oral tablet = 1 Tab, ORAL, Q12H, 0 Refill(s), Maintenance Active 45 [facility] furosemide 40 mg oral tablet = 1 Tab, ORAL, BID, 0 Refill(s), Maintenance Active 45 [facility] atorvastatin 20 mg oral tablet = 1 Tab, ORAL, DAILY, 0 Refill(s), Maintenance Active 45 [facility] Allergies, Adverse Reactions, Alerts Substance Category Reaction Severity Reaction type Status Date Reported Comments Source Augmentin Assertion vomiting, dizziness Drug allergy Active 45 [facility] [place] Results Order Name Results Value Reference Range Date Interpretation Comments Source AutoDiff * Auto Neutrophil Percent 67.8 % 40.0 - 80.0 12/01 [facility] [place] AutoDiff * Auto Neutrophil Absolute 6.1 K/uL 12/01 [facility] [place] AutoDiff * Auto Lymphocyte Percent 13.0 % 18.0 - 45.0 12/01 L [facility] [place] AutoDiff * Auto Lymphocyte Absolute 1.2 K/uL 12/01 [facility] [place] AutoDiff * Auto Monocyte Percent 19.0 % 3.0 - 12.0 12/01 H [facility] [place] AutoDiff * Auto Monocyte Absolute 1.7 K/uL 12/01 [facility] [place] AutoDiff * Auto Eosinophil Percent 0.1 % - <=7.0 12/01 [facility] [place] AutoDiff * Auto Eosinophil Absolute 0.0 K/uL 12/01 [facility] [place] AutoDiff * Auto Basophil Percent 0.1 % - <=2.0 12/01 [facility] [place] AutoDiff * Auto Basophil Absolute 0.0 K/uL 12/01 [facility] [place] AutoDiff * Sex assigned at Male 12/01 [facility] [place] CBC WBC 9.0 K/uL 3.5 - 10.4 10/21 /2022 NA [facility] CBC RBC 4.83 M/uL 4.00 - 6.20 12/01 NA [facility] CBC HGB 14.2 gm/dL 14.0 - 18.0 12/01 NA [facility] CBC HCT 42.7 % 42.0 - 52.0 12/01 NA [facility] CBC MCV 88.4 fL 82.0 - 101.0 12/01 NA [facility] CBC MCH 29.4 pg 26.0 - 34.0 12/01 NA [facility] CBC MCHC 33.2 gm/dL 32.0 - 36.0 12/01 NA [facility] CBC RDW 15.2 % 11.0 - 15.0 12/01 H [facility] CBC PLT 127 K/uL 140 - 440 12/01 L [facility] CBC MPV 8.5 fL 7.4 - 11.4 12/01 NA [facility] CBC Sex assigned at Male 12/01 NA [facility] CBC Manual Diff Y/N SReview 12/01 NA [facility] CMP Sodium Level 143 mmol/L 136 - 145 12/01 NA [facility] CMP Potassium Level 3.8 mmol/L 3.5 - 5.1 12/01 NA [facility] CMP Chloride Level 101 mmol/L 98 - 107 12/01 NA [facility] CMP CO2/Carbon Dioxide 34.6 mmol/L 21.0 - 32.0 12/01 H [facility] CMP Anion Gap 7 mmol/L 4 - 16 12/01 NA [facility] CMP Glucose, Random 90 mg/dL 70 - 95 12/01 NA Reference ranges are based on a fasting specimen. [facility] CMP BUN 33 mg/dL 7 - 20 12/01 H [facility] CMP Creatinine 0.8 mg/dL 0.9 - 1.3 12/01 L [facility] CMP BUN/Creat Ratio 41.2 12/01 [facility] CMP Osmolality, Calculated 303 12/01 [facility] CMP Calcium Level 9.0 mg/dL 8.6 - 10.0 12/01 [facility] CMP Total Protein 6.4 gm/dL 6.4 - 8.2 12/01 [facility] CMP Albumin Level 3.7 gm/dL 3.5 - 5.0 12/01 [facility] CMP Globulin Level 2.7 gm/dL 2.0 - 4.0 12/01 [facility] CMP A/G Ratio 1.4 1.1 - 2.2 12/01 [facility] CMP ALP 61 units/L 38 - 126 12/01 [facility] [place] CMP ALT 26 units/L 10 - 40 12/01 [facility] CMP AST 16 units/L 15 - 41 12/01 [facility] CMP Bilirubin, Total 0.6 mg/dL - <=1.0 12/01 [facility] CMP GFR - Non >60 mL/min/1.73 m2 12/01 NA <60 = Renal Insufficiency , <15 = Renal Failure. This equation is not applicable to person's under 18 years of age.eGFR calculation based on the IDAL traceable four-paramete r MDRD equation. [facility] CMP GFR - >60 mL/min/1.73 m2 12/01 [facility] CMP Sex assigned at Male 12/01 [facility] PT PT - Patient 25.1 sec 11.8 - 13.8 12/01 H [facility] PT PT - INR 2.42 [...] 2.5 - 3.5 of recurrent myocardial infarction [facility] PT Sex assigned at Male 12/01 NA [facility] SReview Anisocytosis 1+ None 12/01 * [facility] SReview RBC Morphology Abnormal Normal 12/01 * [facility] SReview Sex assigned at Male 12/01 NA [facility] [place] AutoDiff * Auto Neutrophil Percent 71.4 % 40.0 - 80.0 11/30 NA [facility] AutoDiff * Auto Neutrophil Absolute 7.3 K/uL 11/30 NA [facility] [place] AutoDiff * Auto Lymphocyte Percent 10.6 % 18.0 - 45.0 11/30 L [facility] [place] AutoDiff * Auto Lymphocyte Absolute 1.1 K/uL 11/30 NA [facility] AutoDiff * Auto Monocyte Percent 17.8 % 3.0 - 12.0 11/30 H [facility] [place] AutoDiff * Auto Monocyte Absolute 1.8 K/uL 11/30 NA [facility] [place] AutoDiff * Auto Eosinophil Percent 0.1 % - <=7.0 11/30 NA [facility] [place] AutoDiff * Auto Eosinophil Absolute 0.0 K/uL 11/30 NA [facility] AutoDiff * Auto Basophil Percent 0.1 % - <=2.0 11/30 NA [facility] AutoDiff * Auto Basophil Absolute 0.0 K/uL 11/30 NA [facility] [place] AutoDiff * Sex assigned at Male 11/30 NA [facility] CBC WBC 10.2 K/uL 3.5 - 10.4 11/30 NA [facility] CBC RBC 4.66 M/uL 4.00 - 6.20 11/30 NA [facility] CBC HGB 13.9 gm/dL 14.0 - 18.0 11/30 L [facility] CBC HCT 41.3 % 42.0 - 52.0 11/30 L [facility] CBC MCV 88.7 fL 82.0 - 101.0 11/30 NA [facility] CBC MCH 29.8 pg 26.0 - 34.0 11/30 NA [facility] CBC MCHC 33.5 gm/dL 32.0 - 36.0 11/30 NA [facility] CBC RDW 15.3 % 11.0 - 15.0 11/30 H [facility] CBC PLT 121 K/uL 140 - 440 11/30 L [facility] CBC MPV 7.9 fL 7.4 - 11.4 11/30 NA [facility] CBC Manual Diff Y/N SReview 11/30 NA [facility] CBC Sex assigned at Male 11/30 NA [facility] CMP Sodium Level 138 mmol/L 136 - 145 11/30 NA [facility] CMP Potassium Level 3.9 mmol/L 3.5 - 5.1 11/30 NA [facility] CMP Chloride Level 99 mmol/L 98 - 107 11/30 NA [facility] [place] CMP CO2/Carbon Dioxide 33.80 mmol/L 21.00 - 32.00 11/30 H [facility] CMP Anion Gap 5 mmol/L 4 - 16 11/30 NA [facility] CMP Glucose, Random 97 mg/dL 70 - 95 11/30 H Reference ranges are based on a fasting specimen. [facility] CMP BUN 33 mg/dL 7 - 20 11/30 H [facility] CMP Creatinine 0.7 mg/dL 0.9 - 1.3 11/30 L [facility] CMP BUN/Creat Ratio 47.1 11/30 NA [facility] CMP Osmolality, Calculated 293 11/30 NA [facility] CMP Calcium Level 8.7 mg/dL 8.6 - 10.0 11/30 NA [facility] CMP Total Protein 6.3 gm/dL 6.4 - 8.2 11/30 L [facility] CMP Albumin Level 3.8 gm/dL 3.5 - 5.0 11/30 NA [facility] CMP Globulin Level 2.5 gm/dL 2.0 - 4.0 11/30 NA [facility] CMP A/G Ratio 1.5 1.1 - 2.2 11/30 NA [facility] CMP ALP 56 units/L 38 - 126 11/30 NA [facility] CMP ALT 21 units/L 10 - 40 11/30 NA [facility] CMP AST 17 units/L 15 - 41 11/30 NA [facility] CMP Bilirubin, Total 0.6 mg/dL - <=1.0 11/30 NA [facility] CMP GFR - Non >60 mL/min/1.73 m2 11/30 NA <60 = Renal Insufficiency , <15 = Renal Failure. This equation is not applicable to person's under 18 years of age.eGFR calculation based on the IDAL traceable four-paramete r MDRD equation. [facility] CMP GFR - >60 mL/min/1.73 m2 11/30 NA [facility] CMP Sex assigned at Male 11/30 NA [facility] PT PT - Patient 25.6 sec 11.8 - 13.8 11/30 H [facility] PT PT - INR 2.48 [...] 2.5 - 3.5 of recurrent myocardial infarction [facility] PT Sex assigned at Male 11/30 NA [facility] SReview Anisocytosis 1+ None 11/30 * [facility] SReview RBC Morphology Abnormal Normal 11/30 * [facility] SReview Sex assigned at Male 11/30 NA [facility] AutoDiff * Auto Neutrophil Percent 73.6 % 40.0 - 80.0 11/29 NA [facility] [place] AutoDiff * Auto Neutrophil Absolute 8.8 K/uL 11/29 NA [facility] [place] AutoDiff * Auto Lymphocyte Percent 5.5 % 18.0 - 45.0 11/29 L [facility] [place] AutoDiff * Auto Lymphocyte Absolute 0.7 K/uL 11/29 NA [facility] AutoDiff * Auto Monocyte Percent 20.9 % 3.0 - 12.0 11/29 H [facility] [place] AutoDiff * Auto Monocyte Absolute 2.5 K/uL 11/29 NA [facility] AutoDiff * Auto Eosinophil Percent 0.0 % - <=7.0 11/29 NA [facility] AutoDiff * Auto Eosinophil Absolute 0.0 K/uL 11/29 NA [facility] AutoDiff * Auto Basophil Percent 0.0 % - <=2.0 11/29 NA [facility] AutoDiff * Auto Basophil Absolute 0.0 K/uL 11/29 NA [facility] AutoDiff * Sex assigned at Male 11/29 NA [facility] CBC WBC 12.0 K/uL 3.5 - 10.4 11/29 H [facility] CBC RBC 4.69 M/uL 4.00 - 6.20 11/29 NA [facility] CBC HGB 13.8 gm/dL 14.0 - 18.0 11/29 L [facility] CBC HCT 42.2 % 42.0 - 52.0 11/29 NA [facility] CBC MCV 89.9 fL 82.0 - 101.0 11/29 NA [facility] CBC MCH 29.3 pg 26.0 - 34.0 11/29 NA [facility] CBC MCHC 32.6 gm/dL 32.0 - 36.0 11/29 NA [facility] CBC RDW 15.1 % 11.0 - 15.0 11/29 H [facility] CBC PLT 121 K/uL 140 - 440 11/29 L [facility] CBC MPV 8.5 fL 7.4 - 11.4 11/29 NA [facility] CBC Manual Diff Y/N SReview 11/29 NA [facility] CBC Sex assigned at Male 11/29 NA [facility] CMP Sodium Level 140 mmol/L 136 - 145 11/29 NA [facility] CMP Potassium Level 4.1 mmol/L 3.5 - 5.1 11/29 NA [facility] CMP Chloride Level 102 mmol/L 98 - 107 11/29 NA [facility] CMP CO2/Carbon Dioxide 30.5 mmol/L 21.0 - 32.0 11/29 NA [facility] CMP Anion Gap 8 mmol/L 4 - 16 11/29 NA [facility] CMP Glucose, Random 115 mg/dL 70 - 95 11/29 H Reference ranges are based on a fasting specimen. [facility] CMP BUN 27 mg/dL 7 - 20 11/29 H [facility] CMP Creatinine 0.7 mg/dL 0.9 - 1.3 11/29 L [facility] CMP BUN/Creat Ratio 38.6 11/29 NA [facility] CMP Osmolality, Calculated 296 11/29 NA [facility] CMP Calcium Level 9.0 mg/dL 8.6 - 10.0 11/29 NA [facility] CMP Total Protein 6.6 gm/dL 6.4 - 8.2 11/29 NA [facility] CMP Albumin Level 3.8 gm/dL 3.5 - 5.0 11/29 NA [facility] CMP Globulin Level 2.8 gm/dL 2.0 - 4.0 11/29 NA [facility] CMP A/G Ratio 1.4 1.1 - 2.2 11/29 NA [facility] CMP ALP 59 units/L 38 - 126 11/29 NA [facility] CMP ALT 21 units/L 10 - 40 11/29 NA [facility] CMP AST 18 units/L 15 - 41 11/29 NA [facility] CMP Bilirubin, Total 0.5 mg/dL - <=1.0 11/29 NA [facility] CMP GFR - Non >60 mL/min/1.73 m2 11/29 NA <60 = Renal Insufficiency , <15 = Renal Failure. This equation is not applicable to person's under 18 years of age.eGFR calculation based on the IDAL traceable four-paramete r MDRD equation. [facility] CMP GFR - >60 mL/min/1.73 m2 11/29 NA [facility] CMP Sex assigned at Male 11/29 NA [facility] PT PT - Patient 26.6 sec 11.8 - 13.8 11/29 H [facility] PT PT - INR 2.61 [...] 2.5 - 3.5 of recurrent myocardial infarction [facility] PT Sex assigned at Male 11/29 NA [facility] SReview Anisocytosis 1+ None 11/29 * [facility] SReview RBC Morphology Abnormal Normal 11/29 * [facility] SReview Sex assigned at Male 11/29 NA [facility] POC CG4+ Harshal VBG - pH 7.390 7.310 - 7.410 11/28 NA Device Code: LAB iSTATFacility : 0045Location: EDSerial Number: [id number] r Code: superkOperato r Name: Aditi Cornelius able Lot: [id number] [facility] POC CG4+ Harshal VBG - pCO2 46.6 mmHg 41.0 - 51.0 11/28 NA [facility] [place] POC CG4+ Harshal VBG - pO2 45 mmHg 30 - 40 11/28 H [facility] POC CG4+ Harshal VBG - HCO3 28.2 mmol/L 23.0 - 28.0 11/28 H [facility] POC CG4+ Harshal VBG - TCO2 30 mmol/L 24 - 29 11/28 H [facility] POC CG4+ Harshal VBG - O2 Sat 80.0 % 0.0 - 75.0 11/28 H [facility] POC CG4+ Harshal VBG - BE 2 mmol/L -3 - 3 11/28 NA [facility] POC CG4+ Harshal POCT - Lactate/Lacti c Acid 0.90 mmol/L 0.50 - 1.90 11/28 NA [facility] POC CG4+ Harshal BG - Modified Bayron Test NA 11/28 NA [facility] POC CG4+ Harshal BG - Site OTHER 11/28 NA [facility] POC CG4+ Harshal Sex assigned at Male 11/28 NA [facility] BMP Sodium Level 136 mmol/L 136 - 145 11/28 NA [facility] BMP Potassium Level 3.7 mmol/L 3.5 - 5.1 11/28 NA [facility] BMP Chloride Level 100 mmol/L 98 - 107 11/28 NA [facility] BMP CO2/Carbon Dioxide 26.10 mmol/L 21.00 - 32.00 11/28 NA [facility] BMP Anion Gap 10 mmol/L 4 - 16 11/28 NA [facility] BMP Glucose, Random 105 mg/dL 70 - 95 11/28 H Reference ranges are based on a fasting specimen. [facility] BMP BUN 26 mg/dL 7 - 20 11/28 H [facility] BMP Creatinine 0.8 mg/dL 0.9 - 1.3 11/28 L [facility] BMP BUN/Creat Ratio 32.5 11/28 NA [facility] BMP Osmolality, Calculated 287 11/28 NA [facility] BMP Calcium Level 8.6 mg/dL 8.6 - 10.0 11/28 NA [facility] BMP GFR - Non >60 mL/min/1.73 m2 11/28 NA <60 = Renal Insufficiency , <15 = Renal Failure. This equation is not applicable to person's under 18 years of age.eGFR calculation based on the IDAL traceable four-paramete r MDRD equation. [facility] BMP GFR - >60 mL/min/1.73 m2 11/28 NA [facility] BMP Sex assigned at Male 11/28 NA [facility] BNPep BNP B-Natriuretic Peptide 58 pg/mL - <=100 11/28 NA [facility] BNPep Sex assigned at Male 11/28 NA [facility] CBC WBC 8.9 K/uL 3.5 - 10.4 11/28 NA [facility] CBC RBC 4.60 M/uL 4.00 - 6.20 11/28 NA [facility] [place] CBC HGB 13.7 gm/dL 14.0 - 18.0 11/28 L [facility] CBC HCT 40.7 % 42.0 - 52.0 11/28 L [facility] CBC MCV 88.5 fL 82.0 - 101.0 11/28 NA [facility] CBC MCH 29.7 pg 26.0 - 34.0 11/28 NA [facility] CBC MCHC 33.5 gm/dL 32.0 - 36.0 11/28 NA [facility] CBC RDW 15.3 % 11.0 - 15.0 11/28 H [facility] CBC PLT 109 K/uL 140 - 440 11/28 L [facility] CBC MPV 7.9 fL 7.4 - 11.4 11/28 NA [facility] CBC Manual Diff Y/N Man Diff 11/28 NA [facility] CBC Sex assigned at Male 11/28 NA [facility] CK+MBIF CK, Total 164 units/L 32 - 230 11/28 NA [facility] CK+MBIF Sex assigned at Male 11/28 [facility] [id number] LU SARS-CoV-2 Source Nasopharyng eal 11/28 NA [facility] [id number] LU Influenza A Agn Molecular Detected Not [...] Test results? Y/N YAssay performed by RT-PCR [facility] [id number] LU Influenza B Agn Molecular Not Detected Not Detected 11/28 NA Assay performed by RT-PCR [facility] [id number] LU SARS-CoV-2 Molecular Not Detected Not Detected 11/28 NA Assay performed by RT-PCRThis test was performed under U.S. Food and Drug Administratio n (FDA) Emergency use Authorization (EUA). This test has been validated but the FDAs independent review of this validation is pending. [facility] [id number] LU SARS-CoV-2 First test? No 11/28 NA [facility] [id number] IGOR Health Care Worker? No 11/28 NA [facility] [id number] IGOR SARS-CoV-2 Is the Patient Hospitalized? No 11/28 NA [facility] [id number] IGOR SARS-CoV-2 Is the Patient in ICU? No 11/28 NA [facility] [id number] IGOR Patient From [facility]? Yes 11/28 NA [facility] [id number] IGOR Symptomatic per CDC? Yes 11/28 NA [facility] [id number] IGOR SARS-CoV-2 Is the Patient ? No 11/28 NA [facility] [place] [id number] IGOR Sex assigned at Male 11/28 NA [facility] [place] MDiff Bands % 1 % - <=6 11/28 NA [facility] [place] MDiff Manual Neutrophil Percent 64 % 40 - 80 11/28 NA [facility] [place] MDiff Manual Neutrophil Absolute 5.8 K/uL 11/28 NA [facility] [place] MDiff Manual Lymphocyte Percent 6 % 18 - 45 11/28 L [facility] [place] MDiff Manual Lymphocyte Absolute 0.5 K/uL 11/28 NA [facility] [place] MDiff Manual Monocyte Percent 27 % 3 - 12 11/28 H [facility] [place] MDiff Manual Monocyte Absolute 2.4 K/uL 11/28 NA [facility] [place] MDiff Manual Eosinophil Percent 2 % - <=7 11/28 NA [facility] [place] MDiff Manual Eosinophil Absolute 0.2 K/uL 11/28 NA [facility] [place] MDiff RBC Morphology Abnormal Normal 11/28 * [facility] [place] MDiff Anisocytosis 1+ None 11/28 * [facility] [place] MDiff Polychromasia 1+ None 11/28 * [facility] [place] MDiff Sex assigned at Male 11/28 NA [facility] [place] Mg Magnesium Level 1.9 mg/dL 1.6 - 2.5 11/28 NA [facility] [place] Mg Sex assigned at Male 11/28 [facility] - Patient 32.7 sec 11.8 - 13.8 11/28 H [facility] PT PT - INR 3.41 11/28 NA [...] 2.5 - 3.5 of recurrent myocardial infarction [facility] PT Sex assigned at Male 11/28 NA [facility] PTT PTT - Patient 42 sec 21 - 34 11/28 [facility] PTT Sex assigned at Male 11/28 [facility] TROPHS Troponin I High Sensitivity 7 ng/L [...] testing may be helpful for interpretatio n. [facility] TROPHS Sex assigned at Male 11/28 NA [facility] C Blood C Blood Final:No growth at 5 days.Sex assigned at :Male 11/28 [facility] C Blood C Blood Final:No growth at 5 days.Sex assigned at :Male 11/28 [facility] Diagnostic Reports Report Value Date Source Chest [...] Jo MD on 12/01/2021 06:58 HST 12/01/2021 [facility] 1 Vw Portable PROCEDURE: Chest 1 V [...] Collin Simpson on 11/30/2021 10:36 HST 11/30/2021 [place] [id number] Vw Portable PROCEDURE: CHEST RAD IOGRAPH, 1 [...] Dubon MD on 11/29/2021 10:40 HST 11/29/2021 [facility] 1 Vw Portable PROCEDURE: CHEST RAD IOGRAPH [...] Brown MD on 11/28/2021 05:06 HST 11/28/2021 [facility] Consultation Notes Results Value Date [...] on 12/01/2021 06:58 HST Final 12/01/2021 45 [facility] Pulmonology Progress Note Patient: LEANNE JARAMILLO Age: 76 years Legal Sex: MALE : 1945 Subjective 1. Doing better overall 2. Now comfortable on room air 3. No longer have any wheezing 4. Afebrile; no leukocytosis 5. all medications reviewed Objective NOTE: This note was generated with the assistance of a voice dictation system, using the [email or web address] Edition. Medical Care Administrator errors may very well be present and [...] Normal strength, No tenderness Integumentary: Warm, Dry, [place], No skin lesions Neurologic: Alert, Oriented, Normal [...] mg/3 mL Neb Soln 3 mL, INH, [id number] Dextrose 50% Inj 50 mL Syr 25 [...] Encourage ambulation Continue DuoNeb every 6 hours srrjul-aoj-kgbwq with addition to AccuPAP Continue with Breo [...] of unspecified lower extremity, I82.409) 5. Anticoagulated (medical terminologist (current) use of anticoagulants, Z79.01) 6. Morbid [...] Chest Physiotherapy Incentive Spirometry Treatment IPPB Treatment [facility] [place] [facility] Treatment Oximetry Continuous Pulse Oximetry Respiratory Therapy Communication Order Updraft Nebulizer Treatment [id number] Male 12/01/2021 [facility] Pulmonology Consultation Patient: LEANNE JARAMILLO [...] Normal strength, No tenderness Integumentary: Warm, Dry, [place], No skin lesions Neurologic: Alert, Oriented, Normal [...] Encourage ambulation Add DuoNeb every 6 hours ubwvff-tsu-outuq with addition to AccuPAP Continue with Breo [...] of unspecified lower extremity, I82.409) 5. Anticoagulated (custodial (current) use of anticoagulants, Z79.01) 6. Morbid [...] Cap, ORAL, DAILY DuoNeb, 3 mL, INH, [id number], PRN flecainide, 50 mg, 0.5 Tab, ORAL, [...] Never. Are you ready to quit? N/A. [id number] Male 11/30/2021 [facility] Progress Note Patient: AMY JARAMILLO Age: 76 years Legal Sex: MALE : 1945 Chart is generated by Group Work Program Aide, Ivon Valdes, for Dr. Rincon Date of [...] mg/3 mL Neb Soln 3 mL, INH, E2XpfhHXfl Dextrose 50% Inj 50 mL Syr 25 [...] of unspecified lower extremity, I82.409) 5. Anticoagulated (medical terminologist (current) use of anticoagulants, Z79.01) 6. Morbid obesity (Morbid (severe) obesity due to excess calories, E66.01) 7. Paroxysmal atrial fibrillation (Paroxysmal atrial fibrillation, I48.0) SOB (shortness of breath) (SOB (shortness of breath), 93019) Plan: Cont breathing treatments Cont steroids started [...] and medical decision making performed by me. [id number] Male 11/30/2021 [facility] Progress Note Patient: AMY JARAMILLO [...] mg/3 mL Neb Soln 3 mL, INH, [id number] albuterol-ipratrop 3-0.5 mg/3 mL Neb Soln 3 [...] of unspecified lower extremity, I82.409) 5. Anticoagulated (medical terminologist (current) use of anticoagulants, Z79.01) 6. Morbid obesity (Morbid (severe) obesity due to excess calories, E66.01) 7. Paroxysmal atrial fibrillation (Paroxysmal atrial fibrillation, I48.0) SOB (shortness of breath) (SOB (shortness of breath), 01659) Plan: Chest x-ray Start Azithromycin Cont breathing treatments Cont steroids Supplemental O2 as needed - goal sat 88-92 Advance care planning including the explanation and discussion of advance directives such as standard forms (with completion of such forms, when performed) by the physician or other qualified health professional; first 30 minutes, pooc-hg-jgsx with the patient, family member(s) and/or surrogate. Quality Measures Charting performed by Group Work Program Aide, Ivon Valdes, for Dr. Rincon The scribe's documentation has been prepared under my direction and personally reviewed by me in its entirety. I confirm that the note above accurately reflects all work, treatment, and medical decision making performed by me. 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 Surgical history: Triage Surgical History. [...] method Bed scale Height/Length (cm) 175.6 cm [place] Body Weight Calculated 71.008 . Oxygen saturation: [...] B Agn Molecular Not Detected Patient From [facility]? Yes SARS-CoV-2 Molecular Not Detected SARS-CoV-2 [...] treatment plan, Patient indicated understanding of instructions. [id number] Male 11/28/2021 [facility] Discharge Summaries Results Value Date [...] of unspecified lower extremity, I82.409) 5. Anticoagulated (custodial (current) use of anticoagulants, Z79.01) 6. Morbid [...] other qualified health professional; first 30 minutes, vcew-js-hxvd with the patient, family member(s) and/or surrogate [...] f/u with PCP 1 week Cardiac diet 93197-2 Male 12/01/2021 [facility] [place] History and Physicals Results Value Date Source Admission H & P 11/28/2021 [facility] [place] History and Physical Patient: LIBAN JARAMILLO Age: [...] other qualified health professional; first 30 minutes, dava-aq-jfwn with the patient, family member(s) and/or surrogate [...] (shortness of breath) (SOB (shortness of breath), 19766) Orders: acetaminophen (acetaminophen), 650 mg, ORAL, Q6H, PRN, Pain-Mild (Scale 1-3), TAB, 11/28/21 5:00:00 HST acetaminophen (acetaminophen), 650 mg, ORAL, Q6H, PRN, Fever, TAB, 11/28/21 5:00:00 HST albuterol-ipratropium (DuoNeb), = 3 mL, INH, [id number], PRN, Shortness of breath, NEB AMP, 11/28/21 [...] mg, ORAL, DAILY DuoNeb, 3 mL, INH, L4CnqlVQhe, PRN flecainide, 50 mg, 1 Tab, ORAL, [...] smoker, quit more than 30 days ago. 47362-2 Male 11/28/2021 [facility] Vital Signs Vital Sign Value Date Comments Source Peripheral Pulse Rate 94 bpm 12/02/2021 45 [facility] Pulse Oximetry 90 % 12/02/2021 45 [facility] Respiratory rate 18 br/min 12/02/2021 45 [facility] Systolic BP 116 mm[Hg] 12/02/2021 45 [facility] Diastolic BP 69 mm[Hg] 12/02/2021 45 [facility] [place] Mean BP 85 mm[Hg] 12/02/2021 45 [facility] [place] Temperature (F) 97.8 [degF] 12/02/2021 45 [facility] [place] Peripheral Pulse Rate 81 bpm 12/01/2021 45 [facility] [place] Pulse Oximetry 92 % 12/01/[address] [facility] [place] Respiratory rate 18 br/min 12/01/2021 45 [facility] [place] Systolic BP 130 mm[Hg] 12/01/2021 45 [facility] Diastolic BP 83 mm[Hg] 12/01/2021 45 [facility] Mean BP 98 mm[Hg] 12/01/2021 45 [facility] Temperature (F) 97.9 [degF] 12/01/2021 45 [facility] [place] Oxygen FiO2 21 % 12/01/2021 45 [facility] Respiratory rate 16 br/min 12/01/2021 45 [facility] [place] Peripheral Pulse Rate 87 bpm 12/01/2021 45 [facility] Pulse Oximetry 93 % 12/01/[address] [facility] [place] Oxygen FiO2 21 % 12/01/2021 45 [facility] Oxygen FiO2 21 % 12/01/2021 45 [facility] [place] Temperature (F) 97.9 [degF] 12/01/2021 45 [facility] [place] Systolic BP 124 mm[Hg] 12/01/2021 45 [facility] Diastolic BP 78 mm[Hg] 12/01/2021 45 [facility] Mean BP 93 mm[Hg] 12/01/2021 45 [facility] Weight (kg) 116.9 kg 12/01/2021 45 [facility] Oxygen flow 1 L/min 12/01/2021 45 [facility] Oxygen flow 1 L/min 11/30/2021 45 [facility] Oxygen flow 1 L/min 11/30/2021 45 [facility] Weight (kg) 116.3 kg 11/30/2021 45 [facility] Weight (kg) 118.3 kg 11/29/2021 45 [facility] HeightLength (cm) 175.6 cm 11/28/2021 [facility] [place] Body Mass Index 38.2 kg/m2 11/28/2021 45 [facility] [place] Dose calculation weight (kg) 117.8 kg 11/28/2021 45 [facility] [place] Heart Rate Monitored 94 bpm 11/28/2021 45 [facility] [place] Heart Rate Monitored 93 bpm 11/28/2021 45 [facility] [place] Heart Rate Monitored 88 bpm 11/28/2021 45 [facility] [place] Apical Heart Rate 94 bpm 11/28/2021 45 [facility] [place] Dose calculation weight (kg) 117.8 kg 11/28/2021 45 [facility] [place] HeightLength (cm) 175.6 cm 11/28/2021 45 [facility] [place] Body Mass Index 38.2 kg/m2 11/28/2021 45 [facility] [place] Body Weight Calculated 71.008 11/28/2021 45 [facility] Encounters Location Location Details Encounter Type Encounter Number Reason For Visit Attending Provider ADM Date DC Date Status Source 45 45 [facility] Inpatient [id number] CHRONIC OBSTRUCTI VE PULMONARY DISEASE (J44.1), INFLUENZA A (J10.1) Elias Kay 11/28 Active [facility] Procedures Procedure Code Date Perfomer Comments Source ROUTINE VENIPUNCTURE 37948 12/01/2021 45 [facility] ROUTINE VENIPUNCTURE 08491 11/30/2021 45 [facility] ROUTINE VENIPUNCTURE 54715 11/29/2021 45 [facility] ROUTINE VENIPUNCTURE 91618 11/28/2021 45 [facility] ROUTINE VENIPUNCTURE 68505 11/28/2021 45 [facility] Plan of Care Plan of Care Date [...] other qualified health professional; first 30 minutes, iucd-bx-papx with the patient, family member(s) and/or surrogate FULL CODE ? Discharge Date: ?_ ? Discharge Location: ?_ ? Addendum by MD Rahul, [facility] on December 01 2021 12:57:56 HST [...] plan, Patient indicated understanding of instructions. 12/02/[address] [place] [address] Social History Social History Date Source Social History TypeResponse Smoking Status Is there a smoker in the household? No; *Do you have concerns about tobacco use in household? No; Never (less than 100 in lifetime); Never; *Are you ready to quit? N/A entered on: 11/28/21 Sex Male [address] [place] [address] Social History TypeResponse Smoking Status Is there a smoker in the household? No; *Do you have concerns about tobacco use in household? No; Never (less than 100 in lifetime); Never; *Are you ready to quit? N/A entered on: 11/28/21 Sex Male [address] [place] [address] Social History TypeResponse Smoking Status Is there a smoker in the household? No; *Do you have concerns about tobacco use in household? No; Never (less than 100 in lifetime); Never; *Are you ready to quit? N/A entered on: 11/28/21 Sex Male [address] [place] [address]
--- OUTSIDE RECORDS SUMMARY | 2024-05-19 16:40 | XMS_ITS | Data Portability ---
Author Organization [place] [facility] Address [address] [place] [id number] Assessment Encounter Date Assessment Date Assessment LastModified [...] abnormal oxygen saturation, and increased breathing effort [facility] was contacted. Supplemental oxygen was administered until EMS arrived. Verbal and written report given to [facility]. Time On Scene with Patient: 01:05:55 - Emergent 911 transport: Patient is critically ill and required immediate transport by a 911/emergency vehicle due to critical illness requiring immediate intervention Not available 02/12/2022 09:40:35 Plan of Treatment Reminders Order Date Submit Date Provider Last Modified By Organization Details Last Modified Time Details Appointments None recorded. Lab rapid SARS CoV 2 Ag, QL IA, respiratory specimen 2021 022 stephen z783 [facility], [address] [place] [address], [phone], 16:28:01 Referral None recorded. Procedures None recorded. Surgeries None recorded. Imaging None recorded. Medication Orders None recorded. Patient TargetsNo targets recorded. Patient Instructions Encounter Date Encounter Id Patient Instructions Last Modified By Organization Details Last Modified Time 02/06/2022 [id number] shortness of breath: care instructions [id number] 3 Not available 02/06/2022 16:01:31 [facility] you [facility] yo [facility]. We cannot [...] condition between 8am-10pm, please call [facility] at [phone] to help navigate your care. [email or web address] 3 Not available 02/07/2022 20:23:27 Reason for Referral None Reported. Results Created Date Observation Date Name Description Value Unit Range Abnormal Flag Note LastModifiedBy Organization Detail LastModifiedTime 02/07/20 22 02/06/2022 rapid SARS CoV 2 Ag, QL IA, respi rator y speci men Covid-19 (ref: neg) negati ve Not Available [facility] [address] [place], [address], 02/06/2022 16:02:13 02/07/20 22 02/06/2022 rapid SARS CoV 2 Ag, QL IA, respi rator y speci men Control Visual ized/V alid Not Available [facility] [address] [place], [address], 02/06/2022 16:02:13 02/07/20 22 02/06/2022 rapid SARS CoV 2 Ag, QL IA, respi rator y speci men Location [facility], [facility] Vivian keenan [facility], [address] [place] [address], [id number] [phone] Not Available [facility] [address] [place], [address], 02/06/2022 16:02:13 Result Notes None recorded. Medical Equipment None Reported. Allergies Allergen ID Allergen Name Allergen Category Reaction Reaction Severity Criticality Documentation Date Start Date Code Code System Note Provider Name and Address Organization Details Recorded Time 307229 Augmentin medicatio n Not available Not available Not available 02/06/2022 89925 2 RxNorm August JOSE Gu [address] [place], [address], [place] [facility] 15:54:26 Medications Name Sig Start Date [...] Available Not Available Not Available amoxicillin 875 mg-potosmariu m clavulanate 125 mg tablet TAKE 1 [...] mm[Hg] August JOSE Gu [address] [place], [address], [place] [facility] 20:29:19 [...] SNOMED-CT Code Diagnosis ICD10 Code Diagnosis Note [id number] August JOSE Gu [facility] [address] [place] [address] 02/06/2022 15:51:42 02/13/2022 11:31:27 Dyspnea at rest [id number] R06.00 Acute hypo xemic respiratory failure 062260146 J96.01 Health Concerns Section Related Observation LastModified by Organization Detai ls LastModified Time None Recorded Concern Status LastModified by Organization Details LastModified Time None Recorded Advance Directives Directive None Recorded Payers Encounter Date Sequence Insurance Name Policy Number Policy Contreras Covered Member ID Contreras Member ID Guarantor Name 02/06/2022 2 [place]ICARE [place]: [employer] Jay Gonzales [id number] Jay Gonzales 02/06/[address] [facility] (MEDICARE REPLACEMENT/A DVANTAGE - PPO) [id number] Jay Gonzales [id number] Jay Gonzales Notes Date Note Type Note [...] pneumonia in November. August JOSE Gu [address], [place], [address], [place] [facility] 02/12/2022 09:40:47
== END 2024-05-19 14:30 | disposition home or self-care (01) ==
LOC: HO.HPS 13:40
PROVIDERS: PCP Internal Medicine; Visit Provider Internal Medicine
DX: J44.1 Chronic obstructive pulmonary disease with (acute) exacerbation (principal); J98.4 Other disorders of lung; R06.89 Other abnormalities of breathing
CPT/HCPCS: 99213

== ENCOUNTER → 2024-05-19 13:40 | Outpatient (BNVA) | payer MEDICARE, SELFPAY | PROVIDERS: PCP Internal Medicine; Visit Provider Internal Medicine | DX: J44.1 Chronic obstructive pulmonary disease with (acute) exacerbation (principal); J98.4 Other disorders of lung; R06.89 Other abnormalities of breathing | CPT/HCPCS: 99212 ==

== ENCOUNTER 2024-05-29 13:18 | Outpatient (AMB) | payer MEDICARE, SELFPAY ==
[2024-05-29 13:30] LABS: Prothrombin Time Whole Bld POC 27.4 sec (11.1-13.5); ~PT, ~INR - Anti Coag Clinic 2.3 (0.9-1.1)
--- NOTE | 2024-05-29 13:33 | MHC.OFFVISCO ---
Intake Intake Visit Reasons: Anticoagulation Allergies albuterol Adverse Reaction (Intermediate, Verified 05/29/24 13:26) Palpitations amoxicillin [From Augmentin] Adverse Reaction (Intermediate, Verified 05/29/24 13:26) Nausea and Vomiting, dizziness clavulanic acid [From Augmentin] Adverse Reaction (Intermediate, Verified 05/29/24 13:26) Nausea and Vomiting, dizziness Medication List - Last Reconciled 05/29/24 by Lottie Avila RN acetaminophen 1,000 mg PO Q6H PRN acetazolamide 250 mg PO DAILY atorvastatin 20 mg PO DAILY azithromycin 250 mg PO 3XW diltiazem HCl CD 120 mg PO DAILY docusate sodium 200 mg PO DAILY flecainide 100 mg PO Q12H fluticasone propion-salmeterol 250-50 mcg/dose (Wixela Inhub) 1 inh inhalation Q12H 30 days furosemide 80 mg (2 x 40 mg) PO DAILY levalbuterol HCl 1.25 mg (0.5 mL) inhalation RQ4H WHILE AWAKE 90 days levalbuterol tartrate 45 mcg/actuation 2 puffs inhalation Q4-6H PRN 90 days multivitamin 1 tab PO DAILY potassium chloride ER 10 mEq PO DAILY sennosides (senna) 25.8 mg PO BEDTIME warfarin See Protocol 7.5 mg orally 7.5 X 4 DAYS/ 5MG X 3 DAYS; Nursing Note INR: 2.3 in therapeutic range of 2-3 Medications and supplements reviewed No changes in health, diet, medications, or supplements, Denies any signs and symptoms of bleeding or bruising or clotting. Bleeding, bruising, clotting discussed Nutritional guidance given Dose: 5mg X 5 days and 7.5mg X 2 days (Sat & Sat) F/U INR: 3 weeks Patient verbalizes understanding of instructions given Anti-Coag Initial Assessment Social Hx Patient Tobacco Use Status: Former Tobacco user alcohol intake: current Alcohol intake frequency: holidays/special occasions only Coding Level of Care Code Est Patient Level 1 Diagnoses Current use of anticoagulant therapy Z79.01 Results AMB INR Fingerstick AMB INR Fingerstick 2.3 Last Edit by Lottie Avila RN on 05/29/24 13:32 interface delay Assessment & Plan Assessment & Plan (1) Current use of anticoagulant therapy: Code(s): Z79.01 - 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
--- OUTSIDE RECORDS SUMMARY | 2024-05-29 13:45 | XMS_ITS | Continuity of Care Document ---
Author Name [facility] Organization [facility] Care Team Providers Care Engineering Associate Name Role Phone [facility] Unavailable Unavailable Problems Problem Status Onset Date Classification Date Reported Comments Source Acute embolism and thrombosis of unspeci Active 11/28/2021 [facility] Acute respiratory failure with hypoxia Active 11/28/2021 12/02/2021 45 [facility] COPD exacerbation Active 11/28/2021 12/02/2021 45 [facility] Influenza A Active 11/28/2021 12/02/2021 45 [facility] Paroxysmal atrial fibrillation Active 11/28/2021 12/02/2021 45 [facility] Anticoagulated Active 11/28/2021 12/02/2021 45 [facility] Morbid obesity Active 11/28/2021 12/02/2021 45 [facility] Shortness of breath Active [facility] Medications Medication Details Route Status Patient Instructions Ordering Provider Order Date Source guaiFENesin 600 mg oral tablet, extended release = 1 Tab, ORAL, BID, X 5 Day(s), # 10 Tab, 0 Refill(s), Acute, Pharmacy: [facility] Yenny Phy, 175.6, cm, 11/28/21 6:49:00 HST, Height/Length (cm), 117.8, kg, 11/28/21 6:49:00 HST, Dose calculation weight (kg) Active 022 45 [facility] Albuterol (Eqv-Proventil HFA) 90 mcg/inh inhalation aerosol 2 Puff, INH, Q6H, # 8.5 gm, 0 Refill(s), Maintenance, Pharmacy: [facility] Xquvachantal Phy, 175.6, cm, 11/28/21 6:49:00 HST, Height/Length (cm), 117.8, kg, 11/28/21 6:49:00 HST, Dose calculation weight (kg) Active [facility] Tamiflu 75 mg oral capsule = 1 Cap, ORAL, BID, X 2 Day(s), # 4 Cap, 0 Refill(s), [facility], cm, 11/28/21 6:49:00 HST, Height/Length (cm), 117.8, kg, 11/28/21 6:49:00 HST, Dose calculation weight (kg) Active [facility] predniSONE 50 mg oral tablet = 1 Tab, ORAL, DAILY, X 5 Day(s), # 5 Tab, 0 Refill(s), Acute, Pharmacy: [facility], 175.6, cm, 11/28/21 6:49:00 HST, Height/Length (cm), 117.8, kg, 11/28/21 6:49:00 HST, Dose calculation weight (kg) Active [facility] multivitamin oral 1 Tab, ORAL, DAILY, OTC, Maintenance Active [facility] Senna = 1 Tab, ORAL, DAILY, OTC, Maintenance Active [facility] warfarin 5 mg oral tablet = 1.5 Tab, ORAL, QTThSa, Maintenance Active [facility] PREPACK Albuterol (0.83 mg/mL) 2.5mg/3mL #6 3 mL, INH, Q4H, PRN Shortness of breath/wheezin g, Maintenance Active [facility] Wixela Inhub 500 mcg-50 mcg inhalation powder 1 Inhalation, INH, BID, Maintenance Active [facility] warfarin 5 mg oral tablet = 1 Tab, ORAL, QSuMWF, 0 Refill(s), Maintenance Active [facility] DilTIAZem (Eqv-Cardizem CD) 120 mg/24 hours oral capsule, extended release = 1 Cap, ORAL, DAILY, 0 Refill(s), Maintenance Active [facility] Klor-Con 10 mEq oral tablet, extended release = 1 Tab, ORAL, DAILY, 0 Refill(s), Maintenance Active 45 [facility] flecainide 50 mg oral tablet = 1 Tab, ORAL, Q12H, 0 Refill(s), Maintenance Active 45 [facility] furosemide 40 mg oral tablet = 1 Tab, ORAL, BID, 0 Refill(s), Maintenance Active 45 [facility] atorvastatin 20 mg oral tablet = 1 Tab, ORAL, DAILY, 0 Refill(s), Maintenance Active 45 [facility] Allergies, Adverse Reactions, Alerts Substance Category Reaction Severity Reaction type Status Date Reported Comments Source Augmentin Assertion vomiting, dizziness Drug allergy Active 45 [facility] Results Order Name Results Value Reference Range Date Interpretation Comments Source AutoDiff * Auto Neutrophil Percent 67.8 % 40.0 - 80.0 12/01 [facility] [place] AutoDiff * Auto Neutrophil Absolute 6.1 K/uL 12/01 [facility] [place] AutoDiff * Auto Lymphocyte Percent 13.0 % 18.0 - 45.0 12/01 L [facility] [place] AutoDiff * Auto Lymphocyte Absolute 1.2 K/uL 12/01 [facility] [place] AutoDiff * Auto Monocyte Percent 19.0 % 3.0 - 12.0 12/01 H [facility] [place] AutoDiff * Auto Monocyte Absolute 1.7 K/uL 12/01 [facility] [place] AutoDiff * Auto Eosinophil Percent 0.1 % - <=7.0 12/01 [facility] [place] AutoDiff * Auto Eosinophil Absolute 0.0 K/uL 12/01 [facility] [place] AutoDiff * Auto Basophil Percent 0.1 % - <=2.0 12/01 [facility] [place] AutoDiff * Auto Basophil Absolute 0.0 K/uL 12/01 [facility] [place] AutoDiff * Sex assigned at Male 12/01 [facility] [place] CBC WBC 9.0 K/uL 3.5 - 10.4 10/21 /2022 NA [facility] [place] CBC RBC 4.83 M/uL 4.00 - 6.20 12/01 NA [facility] [place] [facility] CBC HGB 14.2 gm/dL 14.0 - 18.0 12/01 NA [facility] CBC HCT 42.7 % 42.0 - 52.0 12/01 NA [facility] CBC MCV 88.4 fL 82.0 - 101.0 12/01 NA [facility] CBC MCH 29.4 pg 26.0 - 34.0 12/01 NA [facility] CBC MCHC 33.2 gm/dL 32.0 - 36.0 12/01 NA [facility] CBC RDW 15.2 % 11.0 - 15.0 12/01 H [facility] CBC PLT 127 K/uL 140 - 440 12/01 L [facility] CBC MPV 8.5 fL 7.4 - 11.4 12/01 NA [facility] CBC Sex assigned at Male 12/01 NA [facility] CBC Manual Diff Y/N SReview 12/01 NA [facility] CMP Sodium Level 143 mmol/L 136 - 145 12/01 NA [facility] CMP Potassium Level 3.8 mmol/L 3.5 - 5.1 12/01 NA [facility] CMP Chloride Level 101 mmol/L 98 - 107 12/01 NA [facility] CMP CO2/Carbon Dioxide 34.6 mmol/L 21.0 - 32.0 12/01 H [facility] CMP Anion Gap 7 mmol/L 4 - 16 12/01 NA [facility] CMP Glucose, Random 90 mg/dL 70 - 95 12/01 NA Reference ranges are based on a fasting specimen. [facility] CMP BUN 33 mg/dL 7 - 20 12/01 H [facility] CMP Creatinine 0.8 mg/dL 0.9 - 1.3 12/01 L [facility] CMP BUN/Creat Ratio 41.2 12/01 [facility] CMP Osmolality, Calculated 303 12/01 [facility] Calcium Level 9.0 mg/dL 8.6 - 10.0 12/01 [facility] CMP Total Protein 6.4 gm/dL 6.4 - 8.2 12/01 [facility] CMP Albumin Level 3.7 gm/dL 3.5 - 5.0 12/01 [facility] CMP Globulin Level 2.7 gm/dL 2.0 - 4.0 12/01 [facility] CMP A/G Ratio 1.4 1.1 - 2.2 12/01 [facility] CMP ALP 61 units/L 38 - 126 12/01 [facility] [place] CMP ALT 26 units/L 10 - 40 12/01 [facility] CMP AST 16 units/L 15 - 41 12/01 [facility] CMP Bilirubin, Total 0.6 mg/dL - <=1.0 12/01 [facility] GFR - Non >60 mL/min/1.73 m2 12/01 NA <60 = Renal Insufficiency , <15 = Renal Failure. This equation is not applicable to person's under 18 years of age.eGFR calculation based on the IDTN traceable four-paramete r MDRD equation. [facility] CMP GFR - >60 mL/min/1.73 m2 12/01 [facility] Sex assigned at Male 12/01 [facility] PT PT - Patient 25.1 sec 11.8 - 13.8 12/01 H [facility] PT PT - INR 2.42 12/01 INDICATION [...] 2.5 - 3.5 of recurrent myocardial infarction [facility] PT Sex assigned at Male 12/01 NA [facility] SReview Anisocytosis 1+ None 12/01 * [facility] SReview RBC Morphology Abnormal Normal 12/01 * [facility] SReview Sex assigned at Male 12/01 NA [facility] AutoDiff * Auto Neutrophil Percent 71.4 % 40.0 - 80.0 11/30 NA [facility] [place] AutoDiff * Auto Neutrophil Absolute 7.3 K/uL 11/30 NA [facility] AutoDiff * Auto Lymphocyte Percent 10.6 % 18.0 - 45.0 11/30 L [facility] [place] AutoDiff * Auto Lymphocyte Absolute 1.1 K/uL 11/30 NA [facility] AutoDiff * Auto Monocyte Percent 17.8 % 3.0 - 12.0 11/30 H [facility] [place] AutoDiff * Auto Monocyte Absolute 1.8 K/uL 11/30 NA [facility] [place] AutoDiff * Auto Eosinophil Percent 0.1 % - <=7.0 11/30 NA [facility] [place] AutoDiff * Auto Eosinophil Absolute 0.0 K/uL 11/30 NA [facility] [place] AutoDiff * Auto Basophil Percent 0.1 % - <=2.0 11/30 NA [facility] [place] AutoDiff * Auto Basophil Absolute 0.0 K/uL 11/30 NA [facility] [place] AutoDiff * Sex assigned at Male 11/30 NA [facility] [facility] CBC WBC 10.2 K/uL 3.5 - 10.4 11/30 NA [facility] CBC RBC 4.66 M/uL 4.00 - 6.20 11/30 NA [facility] CBC HGB 13.9 gm/dL 14.0 - 18.0 11/30 L [facility] CBC HCT 41.3 % 42.0 - 52.0 11/30 L [facility] CBC MCV 88.7 fL 82.0 - 101.0 11/30 NA [facility] CBC MCH 29.8 pg 26.0 - 34.0 11/30 NA [facility] CBC MCHC 33.5 gm/dL 32.0 - 36.0 11/30 NA [facility] [facility] CBC RDW 15.3 % 11.0 - 15.0 11/30 H [facility] [place] CBC PLT 121 K/uL 140 - 440 11/30 L [facility] CBC MPV 7.9 fL 7.4 - 11.4 11/30 NA [facility] CBC Manual Diff Y/N SReview 11/30 NA [facility] CBC Sex assigned at Male 11/30 NA [facility] CMP Sodium Level 138 mmol/L 136 - 145 11/30 NA [facility] CMP Potassium Level 3.9 mmol/L 3.5 - 5.1 11/30 NA [facility] CMP Chloride Level 99 mmol/L 98 - 107 11/30 NA [facility] [place] CMP CO2/Carbon Dioxide 33.80 mmol/L 21.00 - 32.00 11/30 H [facility] CMP Anion Gap 5 mmol/L 4 - 16 11/30 NA [facility] CMP Glucose, Random 97 mg/dL 70 - 95 11/30 H Reference ranges are based on a fasting specimen. [facility] CMP BUN 33 mg/dL 7 - 20 11/30 H [facility] CMP Creatinine 0.7 mg/dL 0.9 - 1.3 11/30 L [facility] CMP BUN/Creat Ratio 47.1 11/30 NA [facility] CMP Osmolality, Calculated 293 11/30 NA [facility] CMP Calcium Level 8.7 mg/dL 8.6 - 10.0 11/30 NA [facility] CMP Total Protein 6.3 gm/dL 6.4 - 8.2 11/30 L [facility] CMP Albumin Level 3.8 gm/dL 3.5 - 5.0 11/30 NA [facility] CMP Globulin Level 2.5 gm/dL 2.0 - 4.0 11/30 NA [facility] CMP A/G Ratio 1.5 1.1 - 2.2 11/30 NA [facility] CMP ALP 56 units/L 38 - 126 11/30 NA [facility] CMP ALT 21 units/L 10 - 40 11/30 NA [facility] CMP AST 17 units/L 15 - 41 11/30 NA [facility] CMP Bilirubin, Total 0.6 mg/dL - <=1.0 11/30 NA [facility] CMP GFR - Non >60 mL/min/1.73 m2 11/30 NA <60 = Renal Insufficiency , <15 = Renal Failure. This equation is not applicable to person's under 18 years of age.eGFR calculation based on the IDTN traceable four-paramete r MDRD equation. [facility] CMP GFR - >60 mL/min/1.73 m2 11/30 NA [facility] CMP Sex assigned at Male 11/30 NA [facility] PT PT - Patient 25.6 sec 11.8 - 13.8 11/30 H [facility] PT PT - INR 2.48 11/30 INDICATION [...] 2.5 - 3.5 of recurrent myocardial infarction [facility] PT Sex assigned at Male 11/30 NA [facility] [place] SReview Anisocytosis 1+ None 11/30 * [facility] S[facility] RBC Morphology Abnormal Normal 11/30 * [facility] [place] SReview Sex assigned at Male 11/30 NA [facility] [place] AutoDiff * Auto Neutrophil Percent 73.6 % 40.0 - 80.0 11/29 NA [facility] [place] AutoDiff * Auto Neutrophil Absolute 8.8 K/uL 11/29 NA [facility] [place] AutoDiff * Auto Lymphocyte Percent 5.5 % 18.0 - 45.0 11/29 L [facility] [place] AutoDiff * Auto Lymphocyte Absolute 0.7 K/uL 11/29 NA [facility] [place] AutoDiff * Auto Monocyte Percent 20.9 % 3.0 - 12.0 11/29 H [facility] [place] AutoDiff * Auto Monocyte Absolute 2.5 K/uL 11/29 NA [facility] [place] AutoDiff * Auto Eosinophil Percent 0.0 % - <=7.0 11/29 NA [facility] [place] AutoDiff * Auto Eosinophil Absolute 0.0 K/uL 11/29 NA [facility] [place] AutoDiff * Auto Basophil Percent 0.0 % - <=2.0 11/29 NA [facility] [place] AutoDiff * Auto Basophil Absolute 0.0 K/uL 11/29 NA [facility] [place] AutoDiff * Sex assigned at Male 11/29 NA [facility] [facility] CBC WBC 12.0 K/uL 3.5 - 10.4 11/29 H [facility] [place] CBC RBC 4.69 M/uL 4.00 - 6.20 11/29 NA [facility] [facility] CBC HGB 13.8 gm/dL 14.0 - 18.0 11/29 L [facility] CBC HCT 42.2 % 42.0 - 52.0 11/29 NA [facility] [facility] CBC MCV 89.9 fL 82.0 - 101.0 11/29 NA [facility] CBC MCH 29.3 pg 26.0 - 34.0 11/29 NA [facility] CBC MCHC 32.6 gm/dL 32.0 - 36.0 11/29 NA [facility] CBC RDW 15.1 % 11.0 - 15.0 11/29 H [facility] CBC PLT 121 K/uL 140 - 440 11/29 L [facility] CBC MPV 8.5 fL 7.4 - 11.4 11/29 NA [facility] CBC Manual Diff Y/N SReview 11/29 NA [facility] CBC Sex assigned at Male 11/29 NA [facility] CMP Sodium Level 140 mmol/L 136 - 145 11/29 NA [facility] CMP Potassium Level 4.1 mmol/L 3.5 - 5.1 11/29 NA [facility] CMP Chloride Level 102 mmol/L 98 - 107 11/29 NA [facility] [facility] CMP CO2/Carbon Dioxide 30.5 mmol/L 21.0 - 32.0 11/29 NA [facility] CMP Anion Gap 8 mmol/L 4 - 16 11/29 NA [facility] CMP Glucose, Random 115 mg/dL 70 - 95 11/29 H Reference ranges are based on a fasting specimen. [facility] CMP BUN 27 mg/dL 7 - 20 11/29 H [facility] CMP Creatinine 0.7 mg/dL 0.9 - 1.3 11/29 L [facility] [place] CMP BUN/Creat Ratio 38.6 11/29 NA [facility] [facility] CMP Osmolality, Calculated 296 11/29 NA [facility] CMP Calcium Level 9.0 mg/dL 8.6 - 10.0 11/29 NA [facility] CMP Total Protein 6.6 gm/dL 6.4 - 8.2 11/29 NA [facility] CMP Albumin Level 3.8 gm/dL 3.5 - 5.0 11/29 NA [facility] CMP Globulin Level 2.8 gm/dL 2.0 - 4.0 11/29 NA [facility] CMP A/G Ratio 1.4 1.1 - 2.2 11/29 NA [facility] CMP ALP 59 units/L 38 - 126 11/29 NA [facility] CMP ALT 21 units/L 10 - 40 11/29 NA [facility] CMP AST 18 units/L 15 - 41 11/29 NA [facility] CMP Bilirubin, Total 0.5 mg/dL - <=1.0 11/29 NA [facility] CMP GFR - Non >60 mL/min/1.73 m2 11/29 NA <60 = Renal Insufficiency , <15 = Renal Failure. This equation is not applicable to person's under 18 years of age.eGFR calculation based on the IDTN traceable four-paramete r MDRD equation. [facility] CMP GFR - >60 mL/min/1.73 m2 11/29 NA [facility] CMP Sex assigned at Male 11/29 NA [facility] PT PT - Patient 26.6 sec 11.8 - 13.8 11/29 H [facility] PT PT - INR 2.61 11/29 INDICATION [...] 2.5 - 3.5 of recurrent myocardial infarction [facility] Sex assigned at Male 11/29 NA [facility] SReview Anisocytosis 1+ None 11/29 * [facility] SReview RBC Morphology Abnormal Normal 11/29 * [facility] SReview Sex assigned at Male 11/29 NA [facility] [place] POC CG4+ Harshal VBG - pH 7.390 7.310 - 7.410 11/28 NA Device Code: LAB iSTATFacility : 0045Location: EDSerial Number: [id number] r Code: superkOperato r Name: Aditi Cornelius able Lot: [id number] [facility] POC CG4+ Harshal VBG - pCO2 46.6 mmHg 41.0 - 51.0 11/28 NA [facility] [place] POC CG4+ Harshal VBG - pO2 45 mmHg 30 - 40 11/28 H [facility] [place] POC CG4+ Harshal VBG - HCO3 28.2 mmol/L 23.0 - 28.0 11/28 H [facility] [place] POC CG4+ Harshal VBG - TCO2 30 mmol/L 24 - 29 11/28 H [facility] [place] POC CG4+ Harshal VBG - O2 Sat 80.0 % 0.0 - 75.0 11/28 H [facility] [place] POC CG4+ Harshal VBG - BE 2 mmol/L -3 - 3 11/28 NA [facility] [place] POC CG4+ Harshal POCT - Lactate/Lacti c Acid 0.90 mmol/L 0.50 - 1.90 11/28 NA [facility] [place] POC CG4+ Harshal BG - Modified Bayron Test NA 11/28 NA [facility] [place] POC CG4+ Harshal BG - Site OTHER 11/28 NA [facility] [place] POC CG4+ Harshal Sex assigned at Male 11/28 NA [facility] BMP Sodium Level 136 mmol/L 136 - 145 11/28 NA [facility] BMP Potassium Level 3.7 mmol/L 3.5 - 5.1 11/28 NA [facility] BMP Chloride Level 100 mmol/L 98 - 107 11/28 NA [facility] [facility] BMP CO2/Carbon Dioxide 26.10 mmol/L 21.00 - 32.00 11/28 NA [facility] BMP Anion Gap 10 mmol/L 4 - 16 11/28 NA [facility] BMP Glucose, Random 105 mg/dL 70 - 95 11/28 H Reference ranges are based on a fasting specimen. [facility] BMP BUN 26 mg/dL 7 - 20 11/28 H [facility] BMP Creatinine 0.8 mg/dL 0.9 - 1.3 11/28 L [facility] BMP BUN/Creat Ratio 32.5 11/28 NA [facility] BMP Osmolality, Calculated 287 11/28 NA [facility] BMP Calcium Level 8.6 mg/dL 8.6 - 10.0 11/28 NA [facility] BMP GFR - Non >60 mL/min/1.73 m2 11/28 NA <60 = Renal Insufficiency , <15 = Renal Failure. This equation is not applicable to person's under 18 years of age.eGFR calculation based on the IDTN traceable four-paramete r MDRD equation. [facility] BMP GFR - >60 mL/min/1.73 m2 11/28 NA [facility] BMP Sex assigned at Male 11/28 NA [facility] BNPep BNP B-Natriuretic Peptide 58 pg/mL - <=100 11/28 NA [facility] BNPep Sex assigned at Male 11/28 NA [facility] CBC WBC 8.9 K/uL 3.5 - 10.4 11/28 NA [facility] CBC RBC 4.60 M/uL 4.00 - 6.20 11/28 NA [facility] CBC HGB 13.7 gm/dL 14.0 - 18.0 11/28 L [facility] CBC HCT 40.7 % 42.0 - 52.0 11/28 L [facility] CBC MCV 88.5 fL 82.0 - 101.0 11/28 NA [facility] CBC MCH 29.7 pg 26.0 - 34.0 11/28 NA [facility] CBC MCHC 33.5 gm/dL 32.0 - 36.0 11/28 NA [facility] CBC RDW 15.3 % 11.0 - 15.0 11/28 H [facility] CBC PLT 109 K/uL 140 - 440 11/28 L [facility] CBC MPV 7.9 fL 7.4 - 11.4 11/28 NA [facility] CBC Manual Diff Y/N Man Diff 11/28 NA [facility] CBC Sex assigned at Male 11/28 NA [facility] CK+MBIF CK, Total 164 units/L 32 - 230 11/28 NA [facility] CK+MBIF Sex assigned at Male 11/28 [facility] [id number] LU SARS-CoV-2 Source Nasopharyng eal 11/28 NA [facility] [id number] LU Influenza A Agn Molecular Detected Not [...] Test results? Y/N YAssay performed by RT-PCR [facility] [id number] LU Influenza B Agn Molecular Not Detected Not Detected 11/28 NA Assay performed by RT-PCR [facility] [id number] LU SARS-CoV-2 Molecular Not Detected Not Detected 11/28 NA Assay performed by RT-PCRThis test was performed under U.S. Food and Drug Administratio n (FDA) Emergency use Authorization (EUA). This test has been validated but the FDAs independent review of this validation is pending. [facility] [id number] LU SARS-CoV-2 First test? No 11/28 NA [facility] [id number] IGOR Health Care Worker? No 11/28 NA [facility] [id number] IGOR SARS-CoV-2 Is the Patient Hospitalized? No 11/28 NA [facility] [id number] IGOR SARS-CoV-2 Is the Patient in ICU? No 11/28 NA [facility] [id number] IGOR Patient From [facility]? Yes 11/28 NA [facility] [id number] IGOR Symptomatic per CDC? Yes 11/28 NA [facility] [id number] IGOR SARS-CoV-2 Is the Patient ? No 11/28 NA [facility] [id number] IGOR Sex assigned at Male 11/28 NA [facility] MDiff Bands % 1 % - <=6 11/28 NA [facility] [place] [facility] MDiff Manual Neutrophil Percent 64 % 40 - 80 11/28 NA [facility] [place] MDiff Manual Neutrophil Absolute 5.8 K/uL 11/28 NA [facility] [place] MDiff Manual Lymphocyte Percent 6 % 18 - 45 11/28 L [facility] [place] MDiff Manual Lymphocyte Absolute 0.5 K/uL 11/28 NA [facility] [place] MDiff Manual Monocyte Percent 27 % 3 - 12 11/28 H [facility] [place] MDiff Manual Monocyte Absolute 2.4 K/uL 11/28 NA [facility] [place] MDiff Manual Eosinophil Percent 2 % - <=7 11/28 NA [facility] [place] MDiff Manual Eosinophil Absolute 0.2 K/uL 11/28 NA [facility] [place] MDiff RBC Morphology Abnormal Normal 11/28 * [facility] [place] MDiff Anisocytosis 1+ None 11/28 * [facility] [place] MDiff Polychromasia 1+ None 11/28 * [facility] [place] MDiff Sex assigned at Male 11/28 NA [facility] [place] Mg Magnesium Level 1.9 mg/dL 1.6 - 2.5 11/28 NA [facility] [place] Mg Sex assigned at Male 11/28 [facility] - Patient 32.7 sec 11.8 - 13.8 11/28 [facility] PT - INR 3.41 11/28 NA [...] 2.5 - 3.5 of recurrent myocardial infarction [facility] Sex assigned at Male 11/28 [facility] PTT PTT - Patient 42 sec 21 - 34 11/28 [facility] PTT Sex assigned at Male 11/28 [facility] TROPHS Troponin I High Sensitivity 7 ng/L [...] testing may be helpful for interpretatio n. [facility] Sex assigned at Male 11/28 [facility] C Blood C Blood Final:No growth at 5 days.Sex assigned at :Male 11/28 [facility] C Blood C Blood Final:No growth at 5 days.Sex assigned at :Male 11/28 [facility] [facility] Diagnostic Reports Report Value Date Source Chest [...] Jo MD on 12/01/2021 06:58 HST 12/01/2021 [facility] 1 Vw Portable PROCEDURE: Chest 1 [...] Collin Simpson on 11/30/2021 10:36 HST 11/30/2021 [place] [address] Vw Portable PROCEDURE: CHEST RAD IOGRAPH, 1 [...] Dubon MD on 11/29/2021 10:40 HST 11/29/2021 [facility] 1 Vw Portable PROCEDURE: CHEST RAD [...] Brown MD on 11/28/2021 05:06 HST 11/28/2021 [facility] Consultation Notes Results Value Date Source Portable [...] on 12/01/2021 06:58 HST Final 12/01/2021 45 [facility] Pulmonology Progress Note Patient: LEANNE JARAMILLO Age: 76 years Legal Sex: MALE : 1945 Subjective 1. Doing better overall 2. Now comfortable on room air 3. No longer have any wheezing 4. Afebrile; no leukocytosis 5. all medications reviewed Objective NOTE: This note was generated with the assistance of a voice dictation system, using the [employer] Edition. Shoe Designer errors may very well be present and [...] Normal strength, No tenderness Integumentary: Warm, Dry, Carmichael, No skin lesions Neurologic: Alert, Oriented, Normal [...] mg/3 mL Neb Soln 3 mL, INH, [id number] Dextrose 50% Inj 50 mL Syr 25 [...] Encourage ambulation Continue DuoNeb every 6 hours sjpkic-lsk-qjnzl with addition to AccuPAP Continue with Breo [...] of unspecified lower extremity, I82.409) 5. 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 Morbid [...] Chest Physiotherapy Incentive Spirometry Treatment [facility] Oxim[facility] Continuous Pulse Oximetry Respiratory Therapy Communication Order Updraft Nebulizer Treatment [id number] Male 12/01/2021 [facility] Pulmonology Consultation Patient: LEANNE JARAMILLO Age: 76 [...] shortness of breath. Patient is visiting from [place]. He states symptoms began 2 days ago [...] or vomiting. He apparently is visiting from [place], gotten his influenza vaccine and COVID booster [...] Normal strength, No tenderness Integumentary: Warm, Dry, Carmichael, No skin lesions Neurologic: Alert, Oriented, Normal [...] Encourage ambulation Add DuoNeb every 6 hours [id number]-[id number] with addition to AccuPAP Continue with Breo [...] of unspecified lower extremity, I82.409) 5. Anticoagulated (MCFP (current) use of anticoagulants, Z79.01) 6. Morbid [...] Cap, ORAL, DAILY DuoNeb, 3 mL, INH, [id number], PRN flecainide, 50 mg, 0.5 Tab, ORAL, [...] Never. Are you ready to quit? N/A. [id number] Male 11/30/2021 [facility] Progress Note Patient: AMY JARAMILLO Age: 76 years Legal Sex: MALE : 1945 Chart is generated by Engineer Conductor, Ivon Valdes, for Dr. Rincon Date of [...] mg/3 mL Neb Soln 3 mL, INH, [id number] Dextrose 50% Inj 50 mL Syr 25 [...] of unspecified lower extremity, I82.409) 5. 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 Morbid obesity (Morbid (severe) obesity due to excess calories, E66.01) 7. Paroxysmal atrial fibrillation (Paroxysmal atrial fibrillation, I48.0) SOB (shortness of breath) (SOB (shortness of breath), 90206) Plan: Cont breathing treatments Cont steroids started [...] and medical decision making performed by me. [id number] Male 11/30/2021 [facility] Progress Note Patient: AMY JARAMILLO Age: 76 [...] mg/3 mL Neb Soln 3 mL, INH, [id number] albuterol-ipratrop 3-0.5 mg/3 mL Neb Soln 3 [...] of unspecified lower extremity, I82.409) 5. Anticoagulated (MCFP (current) use of anticoagulants, Z79.01) 6. Morbid obesity (Morbid (severe) obesity due to excess calories, E66.01) 7. Paroxysmal atrial fibrillation (Paroxysmal atrial fibrillation, I48.0) SOB (shortness of breath) (SOB (shortness of breath), 19915) Plan: Chest x-ray Start Azithromycin Cont breathing treatments Cont steroids Supplemental O2 as needed - goal sat 88-92 Advance care planning including the explanation and discussion of advance directives such as standard forms (with completion of such forms, when performed) by the physician or other qualified health professional; first 30 minutes, fqlx-en-mhdi with the patient, family member(s) and/or surrogate. Quality Measures Charting performed by Engineer Conductor, Ivon Valdes, for Dr. Rincon The scribe's documentation has been prepared under my direction and personally reviewed by me in its entirety. I confirm that the note above accurately reflects all work, treatment, and medical decision making performed by me. [id number] Male 11/29/2021 [facility] ED Physician Notes Patient: LEANNE JARAMILLO Age: 76 years Legal Sex: Male : 1945 Author: MD Randy, Shahbaz Trujillo Associated Diagnosis: Acute respiratory failure with hypoxia; COPD exacerbation; Influenza A Basic Information [facility] /CASE RESOURCE MANAGER/PA Time Patient Seen face to face: Date [...] shortness of breath. Patient is visiting from [place]. He states symptoms began 2 days ago [...] HST, N/A DuoNeb: = 3 mL, INH, V1L-Ckryrmac, PRN, Wheezing, STAT, NEB AMP, 11/28/21 3:03:00 [...] History. 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 Surgical history: Triage Surgical History. [...] method Bed scale Height/Length (cm) 175.6 cm [place] Body Weight Calculated 71.008 . Oxygen saturation: [...] Molecular Not Detected Patient From [facility]? Yes SARS-CoV-2 Molecular Not Detected SARS-CoV-2 [...] treatment plan, Patient indicated understanding of instructions. [id number] Male 11/28/2021 [facility] Discharge Summaries Results Value Date Source Discharge [...] of unspecified lower extremity, I82.409) 5. Anticoagulated (MCFP (current) use of anticoagulants, Z79.01) 6. Morbid [...] weeks prior to departing on vacation from [place] that he received his influenza vaccine with [...] other qualified health professional; first 30 minutes, oatm-gr-axmb with the patient, family member(s) and/or surrogate [...] f/u with PCP 1 week Cardiac diet [id number] Male 12/01/2021 [facility] [place] History and Physicals Results Value Date Source Admission H & P 11/28/2021 [facility] [place] History and Physical Patient: LIBAN JARAMILLO Age: [...] weeks prior to departing on vacation from [place] that he received his influenza vaccine with [...] other qualified health professional; first 30 minutes, xgez-hr-qqaw with the patient, family member(s) and/or surrogate [...] (shortness of breath) (SOB (shortness of breath), 90545) Orders: acetaminophen (acetaminophen), 650 mg, ORAL, Q6H, PRN, Pain-Mild (Scale 1-3), TAB, 11/28/21 5:00:00 HST acetaminophen (acetaminophen), 650 mg, ORAL, Q6H, PRN, Fever, TAB, 11/28/21 5:00:00 HST albuterol-ipratropium (DuoNeb), = 3 mL, INH, [id number], PRN, Shortness of breath, NEB AMP, 11/28/21 [...] mg, ORAL, DAILY DuoNeb, 3 mL, INH, [id number], PRN flecainide, 50 mg, 1 Tab, ORAL, [...] smoker, quit more than 30 days ago. [id number] Male 11/28/2021 [facility] Vital Signs Vital Sign Value Date Comments Source Peripheral Pulse Rate 94 bpm 12/02/2021 45 [facility] Pulse Oximetry 90 % 12/02/2021 45 [facility] Respiratory rate 18 br/min 12/02/2021 45 [facility] Systolic BP 116 mm[Hg] 12/02/2021 45 [facility] Diastolic BP 69 mm[Hg] 12/02/2021 45 [facility] Mean BP 85 mm[Hg] 12/02/2021 45 [facility] [place] [place] Temperature (F) 97.8 [degF] 12/02/2021 45 [facility] [place] Peripheral Pulse Rate 81 bpm 12/01/2021 45 [facility] Pulse Oximetry 92 % 12/01/[address] [facility] [place] Respiratory rate 18 br/min 12/01/2021 45 [facility] [place] Systolic BP 130 mm[Hg] 12/01/2021 45 [facility] Diastolic BP 83 mm[Hg] 12/01/2021 45 [facility] Mean BP 98 mm[Hg] 12/01/2021 45 [facility] [place] Temperature (F) 97.9 [degF] 12/01/2021 45 [facility] [place] Oxygen FiO2 21 % 12/01/2021 45 [facility] Respiratory rate 16 br/min 12/01/2021 45 [facility] [place] Peripheral Pulse Rate 87 bpm 12/01/2021 45 [facility] Pulse Oximetry 93 % 12/01/[address] [facility] [place] Oxygen FiO2 21 % 12/01/2021 45 [facility] Oxygen FiO2 21 % 12/01/2021 45 [facility] Temperature (F) 97.9 [degF] 12/01/2021 45 [facility] [place] Systolic BP 124 mm[Hg] 12/01/2021 45 [facility] Diastolic BP 78 mm[Hg] 12/01/2021 45 [facility] Mean BP 93 mm[Hg] 12/01/2021 45 [facility] [place] Weight (kg) 116.9 kg 12/01/2021 45 [facility] Oxygen flow 1 L/min 12/01/2021 45 [facility] Oxygen flow 1 L/min 11/30/2021 45 [facility] Oxygen flow 1 L/min 11/30/2021 45 [facility] Weight (kg) 116.3 kg 11/30/2021 45 [facility] Weight (kg) 118.3 kg 11/29/2021 45 [facility] HeightLength (cm) 175.6 cm 11/28/2021 [facility] [place] Body Mass Index 38.2 kg/m2 11/28/2021 45 [facility] [place] Dose calculation weight (kg) 117.8 kg 11/28/2021 45 [facility] Heart Rate Monitored 94 bpm 11/28/2021 45 [facility] [place] Heart Rate Monitored 93 bpm 11/28/2021 45 [facility] [place] Heart Rate Monitored 88 bpm 11/28/2021 45 [facility] [place] Apical Heart Rate 94 bpm 11/28/2021 45 [facility] [place] Dose calculation weight (kg) 117.8 kg 11/28/2021 45 [facility] HeightLength (cm) 175.6 cm 11/28/2021 45 [facility] [place] Body Mass Index 38.2 kg/m2 11/28/2021 45 [facility] [place] Body Weight Calculated 71.008 11/28/2021 45 [facility] Encounters Location Location Details Encounter Type Encounter Number Reason For Visit Attending Provider ADM Date DC Date Status Source 45 45 [facility] [place] [id number] CHRONIC OBSTRUCTI VE PULMONARY DISEASE (J44.1), INFLUENZA A (J10.1) Elias Kay 11/28 Active [facility] Procedures Procedure Code Date Perfomer Comments Source ROUTINE VENIPUNCTURE [id number] 12/01/2021 45 [facility] ROUTINE VENIPUNCTURE [id number] 11/30/2021 45 [facility] ROUTINE VENIPUNCTURE [id number] 11/29/2021 45 [facility] ROUTINE VENIPUNCTURE [id number] 11/28/2021 45 [facility] ROUTINE VENIPUNCTURE [id number] 11/28/2021 45 [facility] Plan of Care Plan of Care Date Source Extracted from:Title: Hospit alist Discharge Note Author: MD Kay Tom-Oliver Date: 12/01/21 History of Present Illness 76-year-old male with a medical history notable for DVT, 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 Patient reports 2 weeks prior to?departing on vacation?from [place]?that he received his influenza vaccine with COVID [...] other qualified health professional; first 30 minutes, edsj-gq-axid with the patient, family member(s) and/or surrogate FULL CODE ? Discharge Date: ?_ ? Discharge Location: ?_ ? Addendum by MD Rahul, [facility] on December 01 2021 12:57:56 HST Discharge [...] plan, Patient indicated understanding of instructions. 12/02/[address] [place] [address] Social History Social History Date Source Social History TypeResponse Smoking Status Is there a smoker in the household? No; *Do you have concerns about tobacco use in household? No; Never (less than 100 in lifetime); Never; *Are you ready to quit? N/A entered on: 11/28/21 Sex Male [address] [place] [address] Social History TypeResponse Smoking Status Is there a smoker in the household? No; *Do you have concerns about tobacco use in household? No; Never (less than 100 in lifetime); Never; *Are you ready to quit? N/A entered on: 11/28/21 Sex Male [address] [place] [address] Social History TypeResponse Smoking Status Is there a smoker in the household? No; *Do you have concerns about tobacco use in household? No; Never (less than 100 in lifetime); Never; *Are you ready to quit? N/A entered on: 11/28/21 Sex Male [address] [place] [address]
--- OUTSIDE RECORDS SUMMARY | 2024-05-29 13:45 | XMS_ITS | Clinical Summary ---
Author Organization [facility] [address] Address [address] [place] [address] Phone Care Team Providers Care Administrative Secretary Name Role Phone Evelyn Valdez MD Primary [...] for at least 30 minutes after Active Active Problems Problem Noted Date Diagnosed Date Chronic deep vein thrombosis (DVT) of lower extremity ([facility] V24, [facility] V28) 11/07/2023 Overview (11/07/2023): Recurrent Diastolic heart failure ([facility] V24, [facility] V2 8) 07/06/2021 Overview (11/07/2023): Dr. Nava. Grade 1 diastolic dysfunction clinically euvolemic and well compensated Diastolic dysfunction, left ventricle 06/30/2021 Overview (11/07/2023): 06/30/2021 Dr. Nava [place] [facility]. No clinical signs central venous congestion. Medical therapy and pulmonary optimization with increased physical activity and breathing exercises recommended. Vascular disease 06/29/2021 DEREK and COPD overlap syndrome ([facility] V24, [facility] V28) 03/24/2021 Atelectasis, left 12/12/2018 Chronically elevated hemidiaphragm 12/12/2018 COPD (chronic obstructive pu lmonary disease) ([facility] V24, [facility] V28) 12/12/2018 Overview (11/07/2023): Moderately severe Vitamin D deficiency 12/12/2018 Paroxysmal atrial fibrillation ([facility] V24, [facility] V28) 12/11/2018 Overview (11/07/2023): On warfarin. Cardioversion 02/2018 Severe obesity (BMI 35.0-39. 9) with comorbidity ([facility] V24, [facility] V28) 08/08/2016 Adrenal adenoma 04/10/2016 Aortic valve stenosis [...] nl Hypercholesterolemia 09/22/2010 Hypertension 09/22/2010 Pulmonary embolism ([facility] V24, [facility] V28) Overview (11/07/2023): DVT right leg 1989, PE and DVT recurrent 02/1990, marengo filter placed. Anticoagulation- warfarin Encounters Date Type Department Care Team Description 05/12/2024 1:15 PM EDT Office Visit Orthopedic Surgery - [address] [phone] Donny Hughes DPM Arthritis of both ankles (Primary Dx); Dermatophytosis of nail; Peripheral venous insufficiency 05/05/2024 4:30 PM EDT Office Visit Endocrinology - [address] [phone] Garo Florez MD Adenoma of left adrenal gland 04/15/2024 3:52 PM EST - 04/15/2024 11:59 PM EST Hospital Encounter Radiology Department - [address] [phone] Deep vein thrombosis (DVT) of distal vein of right lower extremity, unspecified chronicity ([facility] V24, [facility] V28) Discharge Disposition: Home or Self Care 04/13/2024 1:30 PM EST Office Visit Adult Medicine - [address] [phone] Evelyn Valdez MD Cellulitis of right lower extremity (Primary Dx); Dysphagia, unspecified type; Deep vein thrombosis (DVT) of distal vein of right lower extremity, unspecified chronicity (CMS/HCC V24, CMS/[facility] V28) 03/30/2024 1:14 PM EST - 03/30/2024 11:59 PM EST Hospital Encounter Xray - [address] [phone] Pain and swelling of right knee; Fall, initial encounter Discharge Disposition: Home or Self Care 03/30/2024 12:30 PM EST Office Visit [address] [phone] Ashish Medeiros PA Pain and swelling of right knee (Primary Dx); Fall, initial encounter; Chronic deep vein thrombosis (DVT) of proximal vein of right lower extremity ([facility] V24, [facility] V28) 03/30/[address] [phone] Evelyn Valdez MD Knee Injury (Right Knee Pain ); Fall 03/23/2024 12:37 PM EST - 03/23/2024 11:59 PM EST Hospital Encounter CT Scan - [address] [phone] Acute upper respiratory infection, unspecified; Pneumonia of right lower lobe due to infectious organism Discharge Disposition: Home or Self Care 03/17/2024 2:45 PM EST Office Visit [address] [phone] Evelyn Valdez MD Chronic diastolic heart failure ([facility] V24, [facility] V28) (Primary Dx); Pneumonia of both lungs due to infectious organism, unspecified part of lung; Chronic bronchitis, unspecified chronic bronchitis type ([facility] V24, [facility] V28) from Last 3 Months Immunizations Name Administration [...] COMMENT: Non obstructive CAD-mild disease APPENDECTOMY PROCEDURE: IN APPENDECTOMY OTHER SURGICAL HISTORY 09/28/2021 Right PROCEDURE: IN ENDOVEN ABLTJ INCMPTNT VEIN XTR LASER 1ST VEIN; COMMENT: Dr. Wall Medical History Medical History Date Comments Atrial flutter (CMS/HCC V24, CMS/HCC V28) 12/11/2018 DX:Atrial flutter (HCC); COM MENT: On warfarin Adrenal adenoma 04/10/2016 DX:Adrenal adeno ma Aortic valve stenosis with insufficiency 06/25/19 DX:Aortic valve stenosis with insufficiency; COMMENT: Echo 05/25/11 mild AMS, 2+ AI, mild rheumatic changes in mitral valve Benign prostatic hyperplasia 11/03/2010 DX: Benign prostatic hyperplasia; COMMENT: Dr Portillo Atelectasis, left 12/12/2018 DX:Atelectasis , left Chronically elevated hemidiaphragm 12/12/2018 DX:Chronically elevated hemidiaphragm COPD (chronic obstructive pu lmonary disease) (CMS/HCC V24, CMS/HCC V28) 12/12/2018 DX:COPD (chronic o bstructive pulmonary disease) ([facility]); COMMENT: Moderately severe Diverticulosis 09/22/2010 DX:Diverticulosi s; [...] Metabolic syndrome 11/03/2010 DX:Metabolic syndrome Pulmonary embolism ([facility]/HCC V24, [facility]/HCC V28) 09/22/2010 DX:Pulmonary embolism (HCC); COMMENT: DVT right leg 1989, PE and DVT recurrent 02/1990, rajat filter placed. 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 9) with comorbidity (CMS/HCC V24, CMS/HCC V28) 08/08/2016 DX:Severe obesi ty (BMI 35.0- 39.9) with comorbidity ([facility]) Stasis edema, bilateral 09/23/2010 DX:Stasi s edema, [...] for your loved ones. For example, child health associate or elderly care for an older adult? [...] Info) Description 06/15/2024 8:30 AM EDT Appointment [facility] Xray [address] [place] [phone] 06/22/2024 2:[address] Scan - [place] [address] [place] [phone] 06/22/2024 2:[address] Scan - [address] [place] [phone] 08/18/2024 1:00 PM EDT Office Visit Orthopedic Surgery - [place] [address] [phone] Donny Hughes, DPM [address] [phone] Health Maintenance Due Date Last Done Comments COVID-19 Vaccine ( season) 2024 11/25/2023, 11/15/2022, 11/01/2021, Additional history exists Depression Screening 01/05/2025 01/06/2024 Falls Risk Assessment 01/05/2025 01/06/2024 Medicare Annual Wellness Visit 01/05/2025 01/06/2024 Social Influencers of Health Screening 01/05/2025 01/06/2024 Cholesterol Screening (Lipid Panel) 03/30/2025 03/30/2020 Hypertension/CHF/CAD Annual BMP Blood Test 05/22/2025 05/22/2024, 09/20/2022 DTaP,Tdap,and Td Vaccines (3 - Td or Tdap) 12/15/2033 12/16/2023, 06/25/2011 Hepatitis C Screening Completed 06/19/2012 Pneumococcal Vaccine: 50+ Years Completed 11/12/2014, 10/27/2012 Zoster Vaccines Completed 11/14/2018, 09/12, 09/14/2018, Additional history exists Influenza Vaccine Completed 11/25/2023, [...] Procedure Name Priority Date/Time Associated Diagnosis Comments BUN Routine 05/22/2024 2:11 PM EDT Adenoma of left adrenal gland CREATININE, SERUM Routine 05/22/2024 2:1 1 PM EDT Adenoma of left adrenal gland VAS US DUPLEX LOWER EXT VENOUS RIGHT Routine 04/15/2024 4:34 PM EST Deep vein thrombosis (DVT) of distal vein of right lower extremity, unspecified chronicity (CMS/HCC V24, CMS/HCC V28) XR KNEE 4+ VIEWS RIGHT Routine 03/30/2024 [...] of proximal vein of right lower extremity (CMS/HCC V24, CMS/HCC V28) C-REACTIVE PROTEIN Routine 03/30/2024 1: 06 PM EST Pain and swelling of right knee Fall, initial encounter CBC AND DIFFERENTIAL Routine 03/30/2024 1:06 PM EST Pain and swelling of right knee Fall, initial encounter CT CHEST WO CONTRAST Routine 03/23/2024 12:58 PM EST Acute upper respiratory infection, unspecified Pneumonia of right lower lobe due to infectious organism LIPID PANEL Routine 03/30/2020 HEPATITIS C SCREENING Routine 06/19/2012 from Last 3 Months or Most Recently Relevant to Health Maintenance Results * Creatinine (05/22/2024 2:11 PM EDT) Creatinine 0.84 0.70 - 1.30 mg/dL LAB CHEMISTRY METHOD 05/22/2024 4:35 PM EDT [facility] eGFR 90 >=60 mL/min/1. 73m2 LAB CHEMISTRY METHOD 05/22/2024 4:35 PM EDT [facility] Comment:Calculation based on the??Chronic Kidney Disease Epidemiology Collaboration (CKD-EPI) equation refit??without adjustment for race. Blood Venous blood specimen / Unknown Venipuncture / Unknown 05/22/2024 2:11 PM EDT 05/22/2024 2:11 PM EDT us Garo Florez MD LAB BLOOD ORDERABLES Final Resul t [facility]) [facility] [address] [place] [address], * BUN (05/22/2024 2:11 PM EDT) BUN 22 5 - 25 mg/dL LAB CHEMISTRY METHOD 05/22/2024 4:35 PM EDT [facility] Blood Venous blood specimen / Unknown Venipuncture / Unknown 05/22/2024 2:11 PM EDT 05/22/2024 2:11 PM EDT us Garo Florez MD LAB BLOOD ORDERABLES Final Resul t [facility] [address] [place] [address], * Vascular US duplex lower extremity venous [...] Signed Date: 04/15/2024 16:45 ET Workstation ID: [id number] Transcribed By: Self Edit Transcribed Date: 04/15/2024 [...] Signed Date: 04/15/2024 16:45 ET Workstation ID: [id number] Transcribed By: Self Edit Transcribed Date: 04/15/2024 [...] Signed Date: 03/30/2024 13:56 ET Workstation ID: [id number] Transcribed By: Self Edit Transcribed Date: 03/30/2024 [...] Signed Date: 03/30/2024 13:56 ET Workstation ID: [id number] Transcribed By: Self Edit Transcribed Date: 03/30/2024 13:45 ET Ashish WING IMG XR PROCEDURES Final Resul t * (ABNORMAL) Manual differential (03/30/2024 1:06 PM EST) Neutrophils % 68.0 % LAB HEMETOLOGY METHOD 03/30/2024 3:44 PM EST [facility] Bands % 2.0 % LAB HEMETOLOGY METHOD 03/30/2024 3:44 PM [facility] Lymphocytes % 10.0 % LAB HEMETOLOGY METHOD 03/30/2024 3:44 PM [facility] Reactive Lymphocyte 1.00 % LAB HEMETOLOGY METHOD 03/30/2024 3:44 PM [facility] Monocytes % 17.0 % LAB HEMETOLOGY METHOD 03/30/2024 3:44 PM [facility] Eosinophils % 0.0 % LAB HEMETOLOGY METHOD 03/30/2024 3:44 PM [facility] Basophils % 0.0 % LAB HEMETOLOGY METHOD 03/30/2024 3:44 PM [facility] Promyelocytes % 3.0(H) % LAB HEMETOLOGY METHOD 03/30/2024 3:44 PM [facility] Neutrophils Absolute Manual 7.55(H) 1.50 - 7.00 K/mcL LAB HEMETOLOGY METHOD 03/30/2024 3:44 PM [facility] Bands Absolute Manual 0.22(H) 0.00 - 0.00 K/mcL LAB HEMETOLOGY METHOD 03/30/2024 3:44 PM [facility] Lymphocytes Absolute 1.11 1.00 - 5.00 K/mcL LAB HEMETOLOGY METHOD 03/30/2024 3:44 PM [facility] Reactive Lymph Abs Manual 0.11(H) 0.00 - 0.00 lym LAB HEMETOLOGY METHOD 03/30/2024 3:44 PM [facility] Monocytes Absolute Manual 1.89(H) 0.20 - 1.00 K/mcL LAB HEMETOLOGY METHOD 03/30/2024 3:44 PM [facility] Eosinophils Absolute Manual 0.00 0.00 - 0.50 K/mcL LAB HEMETOLOGY METHOD 03/30/2024 3:44 PM [facility] Basophils Absolute Manual 0.00 0.00 - 0.20 K/mcL LAB HEMETOLOGY METHOD 03/30/2024 3:44 PM [facility] Promyelocytes Absolute Manual 0.33(H) 0.00 - 0.00 K/mcL LAB HEMETOLOGY METHOD 03/30/2024 3:44 PM [facility] Rbc Morphology Present( A) Consistent with indices, Normal for LAB HEMETOLOGY METHOD 03/30/2024 3:44 PM EST [facility] Comment:RBC: Morphology agre es with CBC Platelet Morphology - WAM See Note(A) Normal LAB HEMETOLOGY METHOD 03/30/2024 3:44 PM [facility] Comment:PLT: Large platelets seen Toxic Granules Present Present( A) (none) LAB HEMETOLOGY METHOD 03/30/2024 3:44 PM [facility] Blood Venous blood specimen / Unknown Venipuncture / Unknown 03/30/2024 1:06 PM EST 03/30/2024 1:06 PM EST Ashish WING LAB BLOOD ORDERABLES Final Re sult [facility] [address] [place] [address], [place] [phone] * (ABNORMAL) CBC auto differential (03/30/2024 1:06 PM EST) WBC 11.1(H) 4.8 - 10.8 K/mcL LAB HEMETOLOGY METHOD 03/30/2024 3:44 PM [facility] RBC 4.30(L) 4.50 - 5.50 M/mcL LAB HEMETOLOGY METHOD 03/30/2024 3:44 PM [facility] Hemoglobin 12.5(L) 13.5 - 17.5 g/dL LAB HEMETOLOGY METHOD 03/30/2024 3:44 PM [facility] Hematocrit 40.1(L) 42.0 - 54.0 % LAB HEMETOLOGY METHOD 03/30/2024 3:44 PM [facility] MCV 94.1 79.0 - 98.0 FL LAB HEMETOLOGY METHOD 03/30/2024 3:44 PM [facility] MCH 29.3 27.0 - 32.0 pcg LAB HEMETOLOGY METHOD 03/30/2024 3:44 PM EST [facility] MCHC 31.2(L) 32.0 - 37.0 g/dL LAB HEMETOLOGY METHOD 03/30/2024 3:44 PM EST [facility] RDW 16.0(H) 11.0 - 15.0 % LAB HEMETOLOGY METHOD 03/30/2024 3:44 PM [facility] Platelets 102(L) 130 - 400 K/mcL LAB HEMETOLOGY METHOD 03/30/2024 3:44 PM EST [facility] MPV 10.5 7.0 - 11.0 FL LAB HEMETOLOGY METHOD 03/30/2024 3:44 PM EST [facility] NRBC 0.0 <1.0 % LAB HEMETOLOGY METHOD 03/30/2024 3:44 PM [facility] NRBC Absolute 0.00 <0.10 K/mcL LAB HEMETOLOGY METHOD 03/30/2024 3:44 PM EST [facility] Blood Venous blood specimen / Unknown Venipuncture / Unknown 03/30/2024 1:06 PM EST 03/30/2024 1:06 PM EST us Ashish WING LAB BLOOD ORDERABLES Final Re sult [facility] [address] [place] [address], * (ABNORMAL) Prothrombin time with INR (03/30/2024 1:06 PM EST) Protime 32.2(H) 10.6 - 13.9 sec LAB COAGULATION METHOD 03/30/2024 2:26 PM [facility] INR 2.6 LAB COAGULATION METHOD 03/30/2024 2:26 PM [facility] Blood Venous blood specimen / Unknown Venipuncture / Unknown 03/30/2024 1:06 PM EST 03/30/2024 1:06 PM EST us Ashish WING LAB BLOOD ORDERABLES Final Re sult Performing Organization Address [facility]/ZIP Co de Phone Number [facility] [address] [place] [address], [place] [phone] * (ABNORMAL) C-reactive protein (03/30/2024 1:06 PM EST) C-Reactive Protein 5.59(H) <=0.50 mg/dL LAB CHEMISTRY METHOD 03/30/2024 2:56 PM EST [facility] Blood Venous blood specimen / Unknown Venipuncture / Unknown 03/30/2024 1:06 PM EST 03/30/2024 1:06 PM EST Ashish WING LAB BLOOD ORDERABLES Final Re sult Performing Organization Address [facility] de Phone Number [facility] [address] [place] [address], [place] [phone] * CT Chest wo Contrast (03/23/2024 12:58 [...] washout indeterminate for a neoplasm. POS - [id number] -------- FINAL REPORT -------- Dictated By: Lizett Sanchez Dictated Date: 03/23/2024 15:17 ET Assigned Physician: Lizett Sanchez Reviewed and Electronically Signed By: Lizett Sanchez Signed Date: 03/23/2024 23:40 ET Workstation ID: [id number] Transcribed By: Self Edit Transcribed Date: 03/23/2024 [...] COMPARISON: Chest CT 02/07/2022 and 10/22/2017, chest [id number]/2025, CT abdomen and pelvis 08/08/2023 TECHNIQUE: Multidetector [...] hadwashout indeterminate for a neoplasm. POS - [id number] -------- FINAL REPORT -------- Dictated By: Lizett Sanchez Dictated Date: 03/23/2024 15:17 ET Assigned Physician: Lizett Sanchez Reviewed and Electronically Signed By: Lizett Sanchez Signed Date: 03/23/2024 23:40 ET Workstation ID: [id number] Transcribed By: Self Edit Transcribed Date: 03/23/2024 16:46 ET [address] WING IMG CT PROCEDURES Final Result * Lipid panel (03/30/2020) LDL/HDL Ratio 3 0 - 4 Triglycerides 114 0 - 150 mg/dL Cholesterol 132 0 - 200 mg/dL HDL 43 >=40 mg/dL LDL Cholesterol 67 0 - 100 mg/dL Blood Venous blood specimen / Unknown Historical Provider LAB BLOOD ORDERABLES Isela l Result * Hepatitis C Screening (06/19/2012) Pathologist [facility] Hepatitis C Screening abstracted Historical Provider HEALTH MAINTENANCE Final Result from Last 3 Months or Most Recently Relevant to Health Maintenance Insurance * Guarantor: Jay Gonzales Account Type Relation to Patient Date of Phone Billing Address Personal/Family Self 1945 [phone] (Work) [address] [place] [address] [employer] MED[employer] Care Teams Administrative Secretary Relationship Specialty Start Date End Date Evelyn Valdez MD [address] [place] [phone] PCP - General Internal Medicine 12/09/18
== END 2024-05-29 13:35 | disposition home or self-care (01) ==
LOC: HO.ACS 13:18
PROVIDERS: PCP Internal Medicine; Visit Provider Internal Medicine Medical Oncology
DX: Z79.01 Long term (current) use of anticoagulants (principal)

== ENCOUNTER → 2024-05-29 13:18 | Outpatient (BNVA) | payer MEDICARE, SELFPAY | PROVIDERS: PCP Internal Medicine; Visit Provider Internal Medicine Medical Oncology | DX: I48.19 Other persistent atrial fibrillation (principal); Z86.718 Personal history of other venous thrombosis and embolism; Z79.01 Long term (current) use of anticoagulants; Z51.81 Encounter for therapeutic drug level monitoring | CPT/HCPCS: 85610; 99211 ==

== ENCOUNTER → 2024-06-09 16:46 | Outpatient (BNVA) | payer MEDICARE, SELFPAY | PROVIDERS: PCP Internal Medicine; Visit Provider Internal Medicine Medical Oncology ==

== ENCOUNTER → 2024-06-12 15:16 | Outpatient (BNVA) | payer MEDICARE, SELFPAY | PROVIDERS: PCP Internal Medicine; Visit Provider Internal Medicine Medical Oncology ==

== ENCOUNTER 2024-06-19 13:46 | Outpatient (AMB) | payer MEDICARE, SELFPAY ==
--- OUTSIDE RECORDS SUMMARY | 2024-06-19 13:48 | XMS_ITS | Clinical Summary ---
Author Organization [facility] [address] [facility] lding Address [address] [place] [address] Phone Care Team Providers Care Filleter Name Role Phone Evelyn Valdez MD Primary [...] acetaZOLAMIDE (DIAMOX) 250 mg tablet 5 Active azithromycin (ZITHROMAX) 250 mg tablet Take 1 tablet (250 mg total) by mouth 1 (one) time each day. Mon,sat,Saturday per pulm Active levoFLOXacin (LEVAQUIN) 500 mg tablet Take 1 tablet (500 mg total) by mouth 1 (one) time each day for 10 days. 10 each 5 06/20/19 25 Active predniSONE (DELTASONE) 5 mg tablet Take 1 tablet (5 mg total) by mouth 1 (one) time each day. 3 days weekly 06/10/19 25 Discontinu ed(Therapy completed) doxycycline (ADOXA) 100 mg tablet Take 1 tablet (100 mg total) by mouth 2 (two) times a day. Take with a full glass of water and do not lie down for at least 30 minutes after 06/10/19 25 Discontinu ed(Therapy completed) Active Problems Problem Noted Date Diagnosed Date Chronic deep vein thrombosis (DVT) of lower extremity ([facility] V24, CMS/HCC V28) 11/07/2023 Overview (11/07/2023): Recurrent Diastolic heart failure (CMS/HCC V24, CMS/[facility] V2 8) 07/06/2021 Overview (11/07/2023): Dr. Nava. Grade 1 diastolic dysfunction clinically euvolemic and well compensated Diastolic dysfunction, left ventricle 06/30/2021 Overview (11/07/2023): 06/30/2021 Dr. Elijah Olivas cardiology. No clinical signs central venous congestion. Medical therapy and pulmonary optimization with increased physical activity and breathing exercises recommended. Vascular disease 06/29/2021 DEREK and COPD overlap syndrome ([facility] V24, [facility]/ [facility] V28) 03/24/2021 Atelectasis, left 12/12/2018 Chronically elevated hemidiaphragm 12/12/2018 COPD (chronic obstructive pu lmonary disease) ([facility] V24, [facility] V28) 12/12/2018 Overview (11/07/2023): Moderately severe Vitamin D deficiency 12/12/2018 Paroxysmal atrial fibrillation ([facility] V24, [facility] /[facility] V28) 12/11/2018 Overview (11/07/2023): On warfarin. Cardioversion 02/2018 Severe obesity (BMI 35.0-39. 9) with comorbidity ([facility] V24, [facility] V28) 08/08/2016 Adrenal adenoma 04/10/2016 Aortic valve stenosis with insufficiency 012 Overview (11/07/2023): Echo 05/25/11 mild AMS, 2+ AI, mild rheumatic changes in mitral valve Ischemic cardiomyopathy 06/25/2011 Overview (11/07/2023): Echo 05/25/11, mild to moderate left ventricular systolic dysfunction, mildly reduced diastolic relaxation, wall motion abnormalities and apical septum and inferior base, sees Dr. Johnson Hematuria 11/14/2010 Overview (11/07/2023): 02/16, sees Dr oPrtillo, ct abd with kidney cysts, atypical cells [...] nl Hypercholesterolemia 09/22/2010 Hypertension 09/22/2010 Pulmonary embolism ([facility] V24, [facility] V28) Overview (11/07/2023): DVT right leg 1989, PE and DVT recurrent 02/1990, rajat filter placed. Anticoagulation- warfarin Encounters Date Type Department Care Team Description 06/15/2024 7:38 AM EDT - 06/15/2024 11:59 PM EDT Hospital Encounter [facility] Xray [address] [place] [phone] Dysphagia, unspecified type Discharge Disposition: Home or Self Care 06/12/[address] [facility] [address] [place] [phone] Evelyn Valdez MD Medication Problem (Med question); Wheezing; Pneumonia 06/09/2024 2:39 PM EDT - 06/09/2024 11:59 PM EDT [facility] [address] [place] [phone] Acute cough Discharge Disposition: Home or Self Care 06/09/2024 2:30 PM EDT Office Visit Adult [facility] [address] [place] [phone] Kelsea Martinez MD Acute cough (Primary Dx) 06/09/2024 Telephone Adult [address] [phone] Evelyn Valdez MD Fever 05/12/2024 1:15 PM EDT Office Visit Orthopedic Surgery - [place] [address] [place] [phone] Donny Hughes, DPM Arthritis of both ankles (Primary Dx); Dermatophytosis of nail; Peripheral venous insufficiency 05/05/2024 4:30 PM EDT Office Visit Endocrinology - [address] [phone] Garo Florez MD Adenoma of left adrenal gland 04/15/2024 3:52 PM EST - 04/15/2024 11:59 PM EST Hospital Encounter Radiology Department - [address] [phone] Deep vein thrombosis (DVT) of distal vein of right lower extremity, unspecified chronicity (CMS/HCC V24, CMS/HCC V28) Discharge Disposition: Home or Self Care 04/13/2024 1:30 PM EST Office Visit [address] [phone] Evelyn Valdez MD Cellulitis of right lower extremity (Primary Dx); Dysphagia, unspecified type; Deep vein thrombosis (DVT) of distal vein of right lower extremity, unspecified chronicity (CMS/HCC V24, CMS/HCC V28) 03/30/2024 1:14 PM EST - 03/30/2024 11:59 PM EST Hospital Encounter [address] [phone] Pain and swelling of right knee; Fall, initial encounter Discharge Disposition: Home or Self Care 03/30/2024 12:30 PM EST Office Visit Adult [address] [phone] Ashish Medeiros PA Pain and swelling of right knee (Primary Dx); Fall, initial encounter; Chronic deep vein thrombosis (DVT) of proximal vein of right lower extremity ([facility] V24, [facility] V28) 03/30/2024 Telephone Adult Medicine - [place] [address] [place] [phone] Evelyn Valdez MD Knee Injury (Right Knee Pain ); Fall 03/23/2024 12:37 PM EST - 03/23/2024 11:59 PM EST Hospital Encounter CT Scan - [address] [phone] Acute upper respiratory infection, unspecified; Pneumonia of right lower lobe due to infectious organism Discharge Disposition: Home or Self Care from Last 3 Months Immunizations Name Administration [...] COMMENT: Non obstructive CAD-mild disease APPENDECTOMY PROCEDURE: ME APPENDECTOMY OTHER SURGICAL HISTORY 09/28/2021 Right PROCEDURE: ME ENDOVEN ABLTJ INCMPTNT VEIN XTR LASER 1ST VEIN; COMMENT: Dr. Wall Medical History Medical History Date Comments Atrial flutter (CMS/HCC V24, [facility]/HCC V28) 12/11/2018 DX:Atrial flutter (HCC); COM MENT: [...] (chronic obstructive pu lmonary disease) (CMS/HCC V24, [facility]/HCC V28) 12/12/2018 DX:COPD (chronic o bstructive pulmonary disease) ([facility]); COMMENT: Moderately severe Diverticulosis 09/22/2010 DX:Diverticulosi [...] Metabolic syndrome 11/03/2010 DX:Metabolic syndrome Pulmonary embolism (CMS/HCC V24, CMS/HCC V28) 09/22/2010 DX:Pulmonary embolism (HCC); COMMENT: DVT right leg 1989, PE and DVT recurrent 02/1990, fairmount filter placed. 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 9) with comorbidity (CMS/HCC V24, CMS/HCC V28) 08/08/2016 DX:Severe obesi ty (BMI 35.0- 39.9) with comorbidity (HCC) Stasis [...] care for your loved ones. For example, summer child caregiver or elderly care for an older adult? [...] Sign Reading Time Taken Comments Blood Pressure 113/51 06/09/2024 2:05 PM EDT Pulse 76 06/09/2024 2:05 PM EDT Temperature 36.7 ??C (98.1 ??F) 06/09/2024 2:05 PM ED T Respiratory Rate 15 06/09/2024 2:05 PM EDT Oxygen Saturation 93% 05/05/2024 4:28 PM EDT Inhaled Oxygen Concentration - - Weight 113 kg (249 lb) 06/09/2024 2:05 PM EDT Height 170 cm (5' 6.93 ) 06/09/2024 2:05 PM EDT Body Mass Index 39.08 06/09/2024 2:05 PM EDT Plan of Treatment Upcoming Encounters Date Type Department Care Team (Late st Contact Info) Description 06/22/2024 2:[address] Scan - [address] [phone] 06/22/2024 2:[address] Scan - [address] [phone] 08/11/2024 1:45 PM EDT Office Visit Adult Medicine - [place] [address] [place] [phone] Leonardo Swenson PA [address] [place] [address] 08/18/2024 1:00 PM EDT Office Visit Orthopedic Surgery - [place] [address] [place] [phone] Donny Hughes, DPM [address] [facility] [address] [place] [address] Health Maintenance Due Date Last Done Comments [...] Name Priority Date/Time Associated Diagnosis Comments XR ESOPHAGRAM Routine 06/15/2024 8:18 AM EDT Dysphagia, unspecified type XR CHEST 2 VIEWS Routine 06/09/2024 2:46 PM EDT Acute cough BUN Routine 05/22/2024 2:11 PM EDT Adenoma [...] to infectious organism LIPID PANEL Routine 03/30/2020 HM HEPATITIS C SCREENING Routine 06/19/2012 from Last 3 Months or Most Recently Relevant to Health Maintenance Results * XR Esophagram (06/15/2024 8:18 AM EDT) Anatomical Region Laterality Modality Head and Neck Radiographic Julienne ging 06/15/2024 11:3 4 AM EDT Impressions 06/15/2024 11:47 AM EDT Limited exam due to patient inability to lay flat. 1. Mild esophageal dysmotility, likely age-appropriate 2. Deep laryngeal penetration without justin aspiration on rapid sequence swallowing of thin barium. 3. Stable left hemidiaphragmatic elevation with chronic left basilar atelectasis on 1 view chest imaging. -------- FINAL REPORT -------- Dictated By: No Cesar Dictated Date: 06/15/2024 11:34 ET Assigned Physician: Venancio Diana Reviewed and Electronically Signed By: Venancio Diana Signed Date: 06/15/2024 11:47 ET Workstation ID: [id number] Transcribed By: Self Edit Transcribed Date: 06/15/2024 11:43 ET Resident/PA/CRM TECHNICAL LEAD: No Cesar Narrative 06/15/2024 11:47 AM EDT FINDINGS: Double contrast esophagram performed. Exam was limited due to patient inability to lay flat. COMPARISON: 2 view chest x-ray October 22, 2017 was reviewed. No prior esophagram imaging. HISTORY: Patient is a 78-year-old male with history of dysphagia, aspiration, cough. Operations Processor radiographs: 1 view chest radiograph demonstrates stable cardiac silhouette compared to prior imaging from 2018. Mediastinal contours within normal limits. There is elevation of the left hemidiaphragm with surrounding atelectasis and/or consolidation, also seen on prior imaging from 2018. Sternotomy wires are present at midline. There is a surgical staple overlying the area of the right clavicular head, also seen on prior imaging from 2018. One view lateral soft tissue neck demonstrates no prevertebral soft tissue masses. Airway is widely patent. There are severe bony degenerative changes of cervical spine. The nuchal ligament is calcified. Effervescent crystals were administered orally. Thick and thin barium were administered orally under fluoroscopic control. Pharyngoesophagram: Rapid sequence imaging of the hypopharynx during swallowing demonstrates prompt initiation of swallowing. There is normal soft palate elevation. There is deep laryngeal penetration noted without justin aspiration. There is no residual in the vallecula nor in the piriform sinuses. Thoracic esophagus: Mild esophageal dysmotility, likely age-appropriate. Normal distensibility and mucosal pattern without evidence of ulceration, stricture or mass formation. Hiatal hernia: Unable to assess for sliding hiatal hernia due to patient inability to lay flat. No fixed hiatal hernia. Reflux: No spontaneous gastroesophageal reflux visualized. Unable to elicit. 13mm Barium pill: Swallowed without difficulty. Prompt passage of pill from the esophagus into the stomach. DAP: 479.1 uGym^2 Procedure Note Venancio Diana MD - 06/15/2024 FINDINGS: Double contrast esophagram performed. Exam was limited due topatient inability to lay flat. COMPARISON: 2 view chest x-ray October 22, 2017 was reviewed. No prioresophagram imaging. HISTORY: Patient is a 78-year-old male with history of dysphagia,aspiration, cough. Operations Processor radiographs: 1 view chest radiograph demonstrates stable cardiacsilhouette compared to prior imaging from 2018. Mediastinal contourswithin normal limits. There is elevation of the left hemidiaphragm withsurrounding atelectasis and/or consolidation, also seen on prior imagingfrom 2018. Sternotomy wires are present at midline. There is a surgicalstaple overlying the area of the right clavicular head, also seen on priorimaging from 2018. One view lateral soft tissue neck demonstrates noprevertebral soft tissue masses. Airway is widely patent. There are severebony degenerative changes of cervical spine. The nuchal ligament iscalcified. Effervescent crystals were administered orally. Thick and thin barium wereadministered orally under fluoroscopic control. Pharyngoesophagram: Rapid sequence imaging of the hypopharynx duringswallowing demonstrates prompt initiation of swallowing. There is normalsoft palate elevation. There is deep laryngeal penetration noted withoutfrank aspiration. There is no residual in the vallecula nor in thepiriform sinuses. Thoracic esophagus: Mild esophageal dysmotility, likely age-appropriate.Normal distensibility and mucosal pattern without evidence of ulceration,stricture or mass formation. Hiatal hernia: Unable to assess for sliding hiatal hernia due to patientinability to lay flat. No fixed hiatal hernia. Reflux: No spontaneous gastroesophageal reflux visualized. Unable toelicit. 13mm Barium pill: Swallowed without difficulty. Prompt passage of pillfrom the esophagus into the stomach. DAP: 479.1 uGym^2 IMPRESSION: Limited exam due to patient inability to lay flat. 1. Mild esophageal dysmotility, likely age-appropriate 2. Deep laryngeal penetration without justin aspiration on rapid sequenceswallowing of thin barium. 3. Stable left hemidiaphragmatic elevation with chronic left basilaratelectasis on 1 view chest imaging. -------- FINAL REPORT -------- Dictated By: No Cesar Dictated Date: 06/15/2024 11:34 ET Assigned Physician: Venancio Diana Reviewed and Electronically Signed By: Venancio Diana Signed Date: 06/15/2024 11:47 ET Workstation ID: [id number] Transcribed By: Self Edit Transcribed Date: 06/15/2024 11:43 ET Resident/PA/CRM TECHNICAL LEAD: No Cesar Evelyn Valdez MD IMG FLUOROSCOPY ME OCEDURES Final Result * XR Chest 2 Views (06/09/2024 2:46 PM EDT) Anatomical Region Laterality Modality Body Radiographic Julienne ging 06/09/2024 5:09 PM EDT Impressions 06/09/2024 5:24 PM EDT Findings concerning for right lower lobe pneumonia. ??Follow-up recommended to ensure resolution. POS - [id number] -------- FINAL REPORT -------- Dictated By: Lizett Sanchez Dictated Date: 06/09/2024 17:09 ET Assigned Physician: Lizett Sanchez Reviewed and Electronically Signed By: Lizett Sanchez Signed Date: 06/09/2024 17:24 ET Workstation ID: [id number] Transcribed By: Self Edit Transcribed Date: 06/09/2024 17:09 ET Narrative 06/09/2024 5:24 PM EDT EXAM: Chest x-ray HISTORY: ??Acute cough. COMPARISON: 02/19/2024, 01/17/2022, and 01/02/2022, chest CT 03/23/2024 and 02/07/2022 FINDINGS: PA and lateral views of the chest were performed. ?? Patchy opacities/consolidation in the posterior right lower lobe concerning for pneumonia. ??Chronic elevation of the left hemidiaphragm with stable largely linear left basilar opacities. Chronic blunting in the left costophrenic angle. ??No significant pleural effusions. ??No evidence of pulmonary edema. ??Stable cardiomegaly. ??Stable tortuous thoracic aorta. ??Mediastinal contours have similar appearance. Degenerative changes in the spine. ??Sternotomy wires. Procedure Note Lizett Sanchez MD - 06/09/2024 EXAM: Chest x-ray HISTORY: Acute cough. COMPARISON: 02/19/2024, 01/17/2022, and 01/02/2022, chest CT 03/23/2024 and02/07/2022 FINDINGS: PA and lateral views of the chest were performed. Patchy opacities/consolidation in the posterior right lower lobeconcerning for pneumonia. Chronic elevation of the left hemidiaphragmwith stable largely linear left basilar opacities. Chronic blunting in theleft costophrenic angle. No significant pleural effusions. No evidenceof pulmonary edema. Stable cardiomegaly. Stable tortuous thoracic aorta.Mediastinal contours have similar appearance. Degenerative changes in thespine. Sternotomy wires. IMPRESSION: Findings concerning for right lower lobe pneumonia. Follow-up recommendedto ensure resolution. POS - [id number] -------- FINAL REPORT -------- Dictated By: Lizett Sanchez Dictated Date: 06/09/2024 17:09 ET Assigned Physician: Lizett Sanchez Reviewed and Electronically Signed By: Lizett Sanchez Signed Date: 06/09/2024 17:24 ET Workstation ID: [id number] Transcribed By: Self Edit Transcribed Date: 06/09/2024 17:09 ET Kelsea Martinez MD IMG XR PROCEDURES Isela l Result * Creatinine (05/22/2024 2:11 PM EDT) Creatinine 0.84 0.70 - 1.30 mg/dL LAB CHEMISTRY METHOD 05/22/2024 4:35 PM EDT [facility] eGFR 90 >=60 mL/min/1. 73m2 LAB CHEMISTRY METHOD 05/22/2024 4:35 PM EDT [facility] Comment:Calculation based on the??Chronic Kidney Disease Epidemiology Collaboration (CKD-EPI) equation refit??without adjustment for race. Blood Venous blood specimen / Unknown Venipuncture / Unknown 05/22/2024 2:11 PM EDT 05/22/2024 2:11 PM EDT Garo Florez MD LAB BLOOD ORDERABLES Final Resul t Performing Organization Address City/[facility]/ZIP Co de Phone Number [facility] [address] [place] [address], [place] [phone] * BUN (05/22/2024 2:11 PM EDT) [facility] BUN 22 5 - 25 mg/dL LAB CHEMISTRY METHOD 05/22/2024 4:35 PM EDT [facility] Blood Venous blood specimen / Unknown Venipuncture / Unknown 05/22/2024 2:11 PM EDT 05/22/2024 2:11 PM EDT Garo Florez MD LAB BLOOD ORDERABLES Final Resul t [facility] [address] [place] [address], [place] [phone] * Vascular US duplex lower extremity venous [...] Signed Date: 04/15/2024 16:45 ET Workstation ID: [id number] Transcribed By: Self Edit Transcribed Date: 04/15/2024 [...] Signed Date: 04/15/2024 16:45 ET Workstation ID: [id number] Transcribed By: Self Edit Transcribed Date: 04/15/2024 [...] Signed Date: 03/30/2024 13:56 ET Workstation ID: [id number] Transcribed By: Self Edit Transcribed Date: 03/30/2024 [...] Signed Date: 03/30/2024 13:56 ET Workstation ID: [id number] Transcribed By: Self Edit Transcribed Date: 03/30/2024 13:45 ET Ashish WING IMG XR PROCEDURES Final Resul t * (ABNORMAL) Manual differential (03/30/2024 1:06 PM EST) Neutrophils % 68.0 % LAB HEMETOLOGY METHOD 03/30/2024 3:44 PM [facility] Bands % 2.0 % LAB HEMETOLOGY METHOD 03/30/2024 3:44 PM [facility] Lymphocytes % 10.0 % LAB HEMETOLOGY METHOD 03/30/2024 3:44 PM [facility] Reactive Lymphocyte 1.00 % LAB HEMETOLOGY METHOD 03/30/2024 3:44 PM [facility] Monocytes % 17.0 % LAB HEMETOLOGY METHOD 03/30/2024 3:44 PM [facility] Eosinophils % 0.0 % LAB HEMETOLOGY METHOD 03/30/2024 3:44 PM [facility] Basophils % 0.0 % LAB HEMETOLOGY METHOD 03/30/2024 3:44 PM [facility] Promyelocytes % 3.0(H) % LAB HEMETOLOGY METHOD 03/30/2024 3:44 PM [facility] Neutrophils Absolute Manual 7.55(H) 1.50 - 7.00 K/mcL LAB HEMETOLOGY METHOD 03/30/2024 3:44 PM [facility] Bands Absolute Manual 0.22(H) 0.00 - 0.00 K/mcL LAB HEMETOLOGY METHOD 03/30/2024 3:44 PM EST [facility] Lymphocytes Absolute 1.11 1.00 - 5.00 K/mcL LAB HEMETOLOGY METHOD 03/30/2024 3:44 PM [facility] Reactive Lymph Abs Manual 0.11(H) 0.00 - 0.00 lym LAB HEMETOLOGY METHOD 03/30/2024 3:44 PM [facility] Monocytes Absolute Manual 1.89(H) 0.20 - 1.00 K/mcL LAB HEMETOLOGY METHOD 03/30/2024 3:44 PM [facility] Eosinophils Absolute Manual 0.00 0.00 - 0.50 K/mcL LAB HEMETOLOGY METHOD 03/30/2024 3:44 PM [facility] Basophils Absolute Manual 0.00 0.00 - 0.20 K/mcL LAB HEMETOLOGY METHOD 03/30/2024 3:44 PM [facility] Promyelocytes Absolute Manual 0.33(H) 0.00 - 0.00 K/mcL LAB HEMETOLOGY METHOD 03/30/2024 3:44 PM [facility] Rbc Morphology Present( A) Consistent with indices, Normal for LAB HEMETOLOGY METHOD 03/30/2024 3:44 PM [facility] Comment:RBC: Morphology agre es with CBC Platelet Morphology - WAM See Note(A) Normal LAB HEMETOLOGY METHOD 03/30/2024 3:44 PM EST [facility] Comment:PLT: Large platelets seen Toxic Granules Present Present( A) (none) LAB HEMETOLOGY METHOD 03/30/2024 3:44 PM [facility] Blood Venous blood specimen / Unknown Venipuncture / Unknown 03/30/2024 1:06 PM EST 03/30/2024 1:06 PM EST Ashish WING LAB BLOOD ORDERABLES Final Re sult [facility] [address] [place] [address], * (ABNORMAL) CBC auto differential (03/30/2024 1:06 PM EST) WBC 11.1(H) 4.8 - 10.8 K/mcL LAB HEMETOLOGY METHOD 03/30/2024 3:44 PM EST [facility] RBC 4.30(L) 4.50 - 5.50 M/mcL LAB HEMETOLOGY METHOD 03/30/2024 3:44 PM [facility] Hemoglobin 12.5(L) 13.5 - 17.5 g/dL LAB HEMETOLOGY METHOD 03/30/2024 3:44 PM [facility] Hematocrit 40.1(L) 42.0 - 54.0 % LAB HEMETOLOGY METHOD 03/30/2024 3:44 PM EST [facility] MCV 94.1 79.0 - 98.0 FL LAB HEMETOLOGY METHOD 03/30/2024 3:44 PM EST [facility] MCH 29.3 27.0 - 32.0 pcg LAB HEMETOLOGY METHOD 03/30/2024 3:44 PM [facility] MCHC 31.2(L) 32.0 - 37.0 g/dL LAB HEMETOLOGY METHOD 03/30/2024 3:44 PM EST [facility] RDW 16.0(H) 11.0 - 15.0 % LAB HEMETOLOGY METHOD 03/30/2024 3:44 PM [facility] Platelets 102(L) 130 - 400 K/mcL LAB HEMETOLOGY METHOD 03/30/2024 3:44 PM [facility] MPV 10.5 7.0 - 11.0 [...] ORDERABLES Final Re sult Performing Organization Address City/[facility]/ZIP Co de Phone Number [facility] [address] [place] [address], [place] [phone] * (ABNORMAL) Prothrombin time with INR (03/30/2024 1:06 PM EST) [facility] Protime 32.2(H) 10.6 - 13.9 sec LAB COAGULATION METHOD 03/30/2024 2:26 PM EST [facility] INR 2.6 LAB COAGULATION METHOD 03/30/2024 2:26 PM EST [facility] Blood Venous blood specimen / Unknown Venipuncture / Unknown 03/30/2024 1:06 PM EST 03/30/2024 1:06 PM EST Ashish WING LAB BLOOD ORDERABLES Final Re sult [facility] [address] [place] [address], [place] [phone] * (ABNORMAL) C-reactive protein (03/30/2024 1:06 PM EST) [facility] C-Reactive Protein 5.59(H) <=0.50 mg/dL LAB CHEMISTRY METHOD 03/30/2024 2:56 PM EST [facility] Blood Venous blood specimen / Unknown Venipuncture / Unknown 03/30/2024 1:06 PM EST 03/30/2024 1:06 PM EST us Ashish WING LAB BLOOD ORDERABLES Final Re sult [facility] ([facility]) [facility] [address] [place] [address], * CT Chest wo Contrast (03/23/2024 12:58 [...] washout indeterminate for a neoplasm. POS - [id number] -------- FINAL REPORT -------- Dictated By: Lizett Sanchez Dictated Date: 03/23/2024 15:17 ET Assigned Physician: Lizett Sanchez Reviewed and Electronically Signed By: Lizett Sanchez Signed Date: 03/23/2024 23:40 ET Workstation ID: [id number] Transcribed By: Self Edit Transcribed Date: 03/23/2024 [...] COMPARISON: Chest CT 02/07/2022 and 10/22/2017, chest /08/2025, CT abdomen and pelvis 08/08/2023 TECHNIQUE: Multidetector [...] hadwashout indeterminate for a neoplasm. POS - [id number] -------- FINAL REPORT -------- Dictated By: Lizett Sanchez Dictated Date: 03/23/2024 15:17 ET Assigned Physician: Lizett Sanchez Reviewed and Electronically Signed By: Lizett Sanchez Signed Date: 03/23/2024 23:40 ET Workstation ID: [id number] Transcribed By: Self Edit Transcribed Date: 03/23/2024 [...] Result * Hepatitis C Screening (06/19/2012) Pathologist [facility] Hepatitis C Screening abstracted Historical Provider HEALTH MAINTENANCE Final Result from Last 3 Months or Most Recently Relevant to Health Maintenance Insurance * Guarantor: Jay Gonzales Account Type Relation to Patient Date of Phone Billing Address Personal/Family Self 1945 [phone] (Work) [address] [place] [address] [employer] MED[employer]ARE Care Teams Filleter Relationship Specialty Start Date End Date Evelyn Valdez MD [address] [place] [address] PCP - General Internal Medicine 12/09/18
--- OUTSIDE RECORDS SUMMARY | 2024-06-19 13:49 | XMS_ITS | Encounter Summary ---
Author Organization [facility] Address [address] [place] [address] Care Team Providers Care Button Clamper Name Role Phone Evelyn Valdez MD Primary Care Prov ider Reason for Referral * Imaging (Routine) - Authorized Specialty Diagnoses / Procedures Referred By Luci moon Referred To Contact Radiology Diagnoses Dysphagia, unspecified type Procedures XR Esophagram Evelyn Valdez MD [address] [place], [place] Phone: tel: fax: [facility] CT Scan [address] [place] [address] Phone: tel: Referral ID Status Reason Start Date Expiration Date V isits Requested Visits Authorized [id number] Authorized 04/13/2024 04/13/2025 1 1 Reason for Visit * Imaging (Routine) - Authorized Specialty Diagnoses / Procedures Referred By Luci moon Referred To Contact Radiology Diagnoses Dysphagia, unspecified type Procedures XR Esophagram Evelyn Valdez MD [address] [place], [place] Phone: tel: fax: [facility] CT Scan [address] [place] [address] Phone: tel: Referral ID Status Reason Start Date Expiration Date V isits Requested Visits Authorized [id number] Authorized 04/13/2024 04/13/2025 1 1 Encounter Details Date Type Department Care Team (Latest Contact Info) Description 06/15/2024 7:38 AM EDT - 06/15/2024 11:59 PM EDT Hospital Encounter [facility] Xray [address] [place] [address] Dysphagia, unspecified type Discharge Disposition: Home or Self Care Social [...] for your loved ones. For example, child day care center worker or elderly care for an older [...] time each day. 90 each 1 02/19/2024 azithromycin (ZITHROMAX) 250 mg tablet Take 1 tablet (250 mg total) by mouth 1 (one) time each day. Sat,sat,Saturday per pulm dilTIAZem CD (CARDIZEM CD) 120 mg 24 [...] AWAKE FOR COPD FOR 30 DAYS 03/16/2022 levoFLOXacin (LEVAQUIN) 500 mg tablet Take 1 tablet (500 mg total) by mouth 1 (one) time each day for 10 days. 10 each 06/09/2024 MULTIVITAMIN ORAL Take 1 tablet by mouth [...] 2:[address] Scan - [address] [address] 06/22/2024 2:[address] Scan - [address] [address] 08/11/2024 1:45 PM EDT Office Visit Adult Medicine - [place] [address] [place] [address] Leonardo Swenson PA [address] [place] [address] 08/18/2024 1:00 PM EDT Office Visit Orthopedic Surgery - [place] [address] [phone] HughesDonny DPM 175 [facility] [address] [place] [address] documented as of this encounter Procedures Procedure Name Priority Date/Time Associated Diagnosis Comments XR ESOPHAGRAM Routine 06/15/2024 8:18 AM EDT Dysphagia, unspecified type documented in this encounter Results * XR Esophagram (06/15/2024 8:18 AM [...] Signed Date: 06/15/2024 11:47 ET Workstation ID: [id number] Transcribed By: Self Edit Transcribed Date: 06/15/2024 11:43 ET Resident/PA/GIS PROGRAMMER: No Cesar Narrative 06/15/2024 11:47 AM EDT FINDINGS: Double contrast esophagram performed. Exam was limited due to patient inability to lay flat. COMPARISON: 2 view chest x-ray October 22, 2017 was reviewed. No prior esophagram imaging. HISTORY: Patient is a 78-year-old male with history of dysphagia, aspiration, cough. Airline Attendant radiographs: 1 view chest radiograph demonstrates stable [...] 78-year-old male with history of dysphagia,aspiration, cough. Airline Attendant radiographs: 1 view chest radiograph demonstrates stable [...] Signed Date: 06/15/2024 11:47 ET Workstation ID: [id number] Transcribed By: Self Edit Transcribed Date: 06/15/2024 11:43 ET Resident/PA/GIS PROGRAMMER: No Cesar Evelyn Valdez MD IMG FLUOROSCOPY CA OCEDURES Final Result documented in this encounter Visit Diagnoses Diagnosis Dysphagia, unspecified type documented in this encounter Administered Medications Inactive Administered Medications - up to 3 most recent administrations Medication Order MAR Action Action Date Dose Rate Site barium sulfate (E-Z-DISK) tablet 700 mg 700 mg, oral, Once in imaging, Starting on Sat06/15/24 at 0818, For 1 dose, Swallow whole with 1-2 swallows of water just prior to fluoroscopic examination. Given 06/15/2024 8:19 AM EDT 700 mg barium sulfate (E-Z-HD) 98 % suspension 100 mL 100 mL, oral, Once in imaging, Starting on Sat06/15/24 at 0818, For 1 dose Given 06/15/2024 8:19 AM EDT 100 mL barium sulfate (E-Z-PAQUE) 96 % (w/w) suspension 100 mL 100 mL, oral, Once in imaging, Starting on 06/15/24 at 0818, For 1 dose Given 06/15/2024 8:19 AM EDT 100 mL documented in this encounter Additional Health Concerns Assessment Noted Time PHQ-9 Depression Total Score: 0 01/06/20 24 1:14 PM EST A fall risk assessment has been complete d for the patient 01/06/2024 1:11 PM EST documented as of this encounter Care Teams Button Clamper Relationship Specialty Start Date End Date Evelyn Valdez MD [address] [place] [address] PCP - General Internal Medicine 12/09/18 documented as of this encounter
--- NOTE | 2024-06-19 14:03 | MHC.OFFVISCO ---
Intake Intake Visit Reasons: Anticoagulation Allergies albuterol Adverse Reaction (Intermediate, Verified 06/19/24 13:47) Palpitations amoxicillin [From Augmentin] Adverse Reaction (Intermediate, Verified 06/19/24 13:47) Nausea and Vomiting, dizziness clavulanic acid [From Augmentin] Adverse Reaction (Intermediate, Verified 06/19/24 13:47) Nausea and Vomiting, dizziness Medication List - Last Reconciled 06/19/24 by Chaya Yarbrough RN acetaminophen 1,000 mg PO Q6H PRN acetazolamide 250 mg PO DAILY atorvastatin 20 mg PO DAILY azithromycin 250 mg PO 3XW diltiazem HCl CD 120 mg PO DAILY docusate sodium 200 mg PO DAILY flecainide 100 mg PO Q12H fluticasone propion-salmeterol 250-50 mcg/dose (Wixela Inhub) 1 inh inhalation Q12H 30 days furosemide 80 mg (2 x 40 mg) PO DAILY levalbuterol HCl 1.25 mg (0.5 mL) inhalation RQ4H WHILE AWAKE 90 days levalbuterol tartrate 45 mcg/actuation 2 puffs inhalation Q4-6H PRN 90 days multivitamin 1 tab PO DAILY potassium chloride ER 10 mEq PO DAILY sennosides (senna) 25.8 mg PO BEDTIME warfarin See Protocol 7.5 mg orally 7.5 X 4 DAYS/ 5MG X 3 DAYS; Nursing Note INR 1.9 out of therapeutic range- warfarin dose was decreased last week due to antbx and steroids Medications and supplements reviewed Patient status: S/P PNUEMONIA vs CHF - completed antibiotics and has 4 more days of prednisone left (20mg +10mg x 3 days),plus had an extra dose to furosemide. Medications or supplements: updated pt to call with any changes Diet: increased with prednisone Denies any signs and symptoms of bleeding or clotting or unusual bruising Bleeding, bruising, clotting discussed Nutritional guidance given: avoid greens x 2 days then resume usual diet Dose: resume usual dose becuase antbx may have delayed onset raising the INR - 7.5mg x 2 days/ 5mg x 5 days F/U INR Date : 1 week ?? Patient verbalizing understanding of instructions given. Anti-Coag Initial Assessment Social Hx Patient Tobacco Use Status: Former Tobacco user alcohol intake: current Alcohol intake frequency: holidays/special occasions only Questionnaires HAS-BLED Does the patient had uncontrolled Hypertension?: No Does the patient have renal disease?: No Does the patient have liver disease?: No Does the patient have a history of stroke?: No Has the patient had major bleeding or predisposition to bleeding?: No Does the patient have labile INRs?: Yes Is the patient over 65 years of age?: Yes Is the patient on medications that gives them a predisposition to bleeding?: Yes Does the patient use alcohol?: Yes HAS-BLED Score: 4 CHADSVASC Age: 75 or over Gender: Male Does the patient have a history of CHF?: Yes Does the patient have a history of Hypertension?: Yes Does the patient have a history of Stroke/TIA/Thromboembolism?: Yes Does the patient have a history of Vascular Disease (prior CT, PAD or aortic plaque)?: Yes Does the patient have a history of Diabetes?: No CHADS VACS Score: 7 Maya Prediction Score Rsk VTE Active Cancer: No Previous VTE, excluding superficial vein thrombosis: Yes Reduced mobility: No Already known Thrombophilic Condition: No With-in last month Trauma and/or Surgery: No Elderly 70 year or older: Yes Heart and/or Respiratory Failure: Yes Acute Myocardial infarction and/or Ischemic Stroke: No Acute Infection and/or Rheumatologic Disorder: No Obesity (BMI 30 or greater): Yes Ongoing Hormonal Treatment: No Score: 6 Maya Score less than 4; Low Risk of VTE Maya Score 4 or greater; High Risk of VTE Coding Level of Care Code Est Patient Level 1 Diagnoses Current use of anticoagulant therapy Z79.01 Results AMB INR Fingerstick AMB INR Fingerstick 1.9 Last Edit by Chaya Yarbrough RN on 06/19/24 13:55 MANUAL ENTRY Assessment & Plan Assessment & Plan (1) Current use of anticoagulant therapy: Code(s): Z79.01 - lobsterman (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 Medications: New [PREDNISONE TAPPERING DOSE] PO
[2024-06-19 14:04] LABS: Prothrombin Time Whole Bld POC 23.3 sec (11.1-13.5); ~PT, ~INR - Anti Coag Clinic 1.9 (0.9-1.1)
== END 2024-06-19 14:11 | disposition home or self-care (01) ==
LOC: HO.ACS 13:46
PROVIDERS: PCP Internal Medicine; Visit Provider Internal Medicine Medical Oncology
DX: Z79.01 Long term (current) use of anticoagulants (principal)

== ENCOUNTER → 2024-06-19 13:46 | Outpatient (BNVA) | payer MEDICARE, SELFPAY | PROVIDERS: PCP Internal Medicine; Visit Provider Internal Medicine Medical Oncology | DX: I48.19 Other persistent atrial fibrillation (principal); Z86.718 Personal history of other venous thrombosis and embolism; Z79.01 Long term (current) use of anticoagulants; Z51.81 Encounter for therapeutic drug level monitoring | CPT/HCPCS: 85610; 99211 ==

== ENCOUNTER 2024-06-26 13:04 | Outpatient (AMB) | payer MEDICARE, SELFPAY ==
--- OUTSIDE RECORDS SUMMARY | 2024-06-26 13:06 | XMS_ITS | Encounter Summary ---
Author Organization [facility] Address [address] [place] [address] Care Team Providers Care Electronic Prepress Technician Name Role Phone Evelyn Valdez MD Primary Care Prov ider Reason for Referral * Imaging (Routine) - Authorized Specialty Diagnoses / Procedures Referred By Luci t Referred To Contact Radiology Diagnoses Abnormal CT scan, lung Procedures CT Chest wo Contrast Leonardo Swenson PA [address] [place], [place] Phone: tel: fax: CT Scan - [address] Phone: tel: fax: Referral ID Status Reason Start Date Expiration Date V isits Requested Visits Authorized [id number] Authorized 03/24/2024 03/24/2025 1 1 Reason for Visit * Imaging (Routine) - Authorized Specialty Diagnoses / Procedures Referred By Contac t Referred To Contact Radiology Diagnoses Abnormal CT scan, lung Procedures CT Chest wo Contrast Leonardo Swenson PA [address] [place], [place] Phone: tel: fax: CT Scan - [address] Phone: tel: fax: Referral ID Status Reason Start Date Expiration Date V isits Requested Visits Authorized [id number] Authorized 03/24/2024 03/24/2025 1 1 Encounter Details Date Type Department Care Team (Latest Contact Info) Description 06/22/2024 2:15 PM EDT - 06/22/2024 11:59 PM EDT Hospital Encounter CT Scan - [address] [phone] scan, lung Discharge Disposition: Home or Self Care Social [...] care for your loved ones. For example, child's nurse or elderly care for an older adult? [...] by mouth 1 (one) time each day. Mon,wed,Saturday per pulm dilTIAZem CD (CARDIZEM CD) 120 [...] Care Team (Late st Contact Info) Description 08/11/2024 1:45 PM EDT Office Visit Adult Medicine [facility] [address] [place] [address] Leonardo Swenson PA [address] [place] [address] 08/18/2024 1:00 PM EDT Office Visit Orthopedic Surgery - [place] [address] [phone] Donny Hughes, DPM [address] [address] documented as of this encounter Procedures Procedure Name Priority Date/Time Associated Diagnosis Comments CT CHEST WO CONTRAST Routine 06/22/2024 2:[address] scan, lung documented in this encounter Results * CT Chest wo Contrast (06/22/2024 2:33 PM EDT) Anatomical Region Laterality Modality Body Computed Tomogra phy 06/23/2024 1:04 PM EDT Impressions 06/23/2024 3:00 PM EDT Resolution of the subpleural opacity in the right upper lobe. Stable dilatation of the ascending aorta measuring 4.1 cm. Please refer to the separately dictated abdominal CT from the same day for comments on abdominal findings. POS - [id number] -------- FINAL REPORT -------- Dictated By: Lizett Sanchez Dictated Date: 06/23/2024 13:04 ET Assigned Physician: Lizett Sanchez Reviewed and Electronically Signed By: Lizett Sanchez Signed Date: 06/23/2024 15:00 ET Workstation ID: [id number] Transcribed By: Self Edit Transcribed Date: 06/23/2024 13:24 ET Narrative 06/23/2024 3:00 PM EDT EXAM: Chest CT HISTORY: Follow-up abnormal chest CT. COMPARISON: ??03/23/2024, 01/30/2022, 10/22/2017 TECHNIQUE: Multidetector CT is obtained from lung apex to base without IV contrast. Sagittal and coronal reformatted images obtained. ??Automated exposure control utilized. TOTAL CTDIvol: 15.72 mGy FINDINGS: Lungs/pleura: The 2.0 cm subpleural opacity in the lateral right upper lobe which was new on the most recent exam has resolved. ??Chronic elevation of the left hemidiaphragm without significant change in chronic confluent opacities with air bronchograms at the bases of the lingula and left lower lobe which likely represent chronic atelectasis. ??Stable streaky and linear opacities in the posterior and posteromedial right lower lobe from chronic atelectasis or scarring. Paraseptal emphysema again noted at the extreme apices. No pleural effusions. Lymph nodes: Sensitivity for lymphadenopathy is limited without IV contrast. ??Subcentimeter mediastinal lymph nodes. ??No definite enlarged hilar lymph nodes. Cardiovascular: Stable mild cardiomegaly. ??No pericardial effusion. ??Coronary calcifications again noted. Stable dilatation of ascending aorta measuring 4.1 cm. ??Remainder of the aorta is ectatic. ??Stable mild dilatation of the pulmonary trunk. ??Stable abandoned wire in the SVC. Soft tissues: Thyroid gland is not enlarged. No esophageal abnormality. Upper abdomen: Please refer to the separately dictated abdominal CT report for comments on abdominal findings. Bones: Multilevel degenerative changes in the spine. ??Sternotomy wires. Procedure Note Lizett Sanchez MD - 06/23/2024 EXAM: Chest CT HISTORY: Follow-up abnormal chest CT. COMPARISON: 03/23/2024, 01/30/2022, 10/22/2017 TECHNIQUE: Multidetector CT is obtained from lung apex to base without IVcontrast. Sagittal and coronal reformatted images obtained. Automatedexposure control utilized. TOTAL CTDIvol: 15.72 mGy FINDINGS: Lungs/pleura: The 2.0 cm subpleural opacity in the lateral right upperlobe which was new on the most recent exam has resolved. Chronicelevation of the left hemidiaphragm without significant change in chronicconfluent opacities with air bronchograms at the bases of the lingula andleft lower lobe which likely represent chronic atelectasis. Stablestreaky and linear opacities in the posterior and posteromedial rightlower lobe from chronic atelectasis or scarring. Paraseptal emphysemaagain noted at the extreme apices. No pleural effusions. Lymph nodes: Sensitivity for lymphadenopathy is limited without IVcontrast. Subcentimeter mediastinal lymph nodes. No definite enlargedhilar lymph nodes. Cardiovascular: Stable mild cardiomegaly. No pericardial effusion.Coronary calcifications again noted. Stable dilatation of ascending aortameasuring 4.1 cm. Remainder of the aorta is ectatic. Stable milddilatation of the pulmonary trunk. Stable abandoned wire in the SVC. Soft tissues: Thyroid gland is not enlarged. No esophageal abnormality. Upper abdomen: Please refer to the separately dictated abdominal CT reportfor comments on abdominal findings. Bones: Multilevel degenerative changes in the spine. Sternotomy wires. IMPRESSION: Resolution of the subpleural opacity in the right upper lobe. Stable dilatation of the ascending aorta measuring 4.1 cm. Please refer to the separately dictated abdominal CT from the same day forcomments on abdominal findings. POS - [id number] -------- FINAL REPORT -------- Dictated By: Lizett Sanchez Dictated Date: 06/23/2024 13:04 ET Assigned Physician: Lizett Sanchez Reviewed and Electronically Signed By: Lizett Sanchez Signed Date: 06/23/2024 15:00 ET Workstation ID: [id number] Transcribed By: Self Edit Transcribed Date: 06/23/2024 13:24 [address]ili CT PROCEDURES Final Result documented in this encounter Visit Diagnoses Diagnosis Abnormal CT scan, lung documented in this encounter Additional Health Concerns Assessment Noted Time PHQ-9 Depression Total Score: 0 01/06/20 1:14 PM EST A fall risk assessment has been complete d for the patient 01/06/2024 1:11 PM EST documented as of this encounter Care Teams Electronic Prepress Technician Relationship Specialty Start Date End Date Evelyn Valdez MD [address] [place] [address] PCP - General Internal Medicine 12/09/18 documented as of this encounter
--- OUTSIDE RECORDS SUMMARY | 2024-06-26 13:06 | XMS_ITS | Encounter Summary ---
Author Organization [facility] Address [address] [place] [address] Care Team Providers Care Manager Access Name Role Phone Evelyn Valdez MD Primary Care Prov ider Reason for Visit * Imaging (Routine) - Authorized Specialty Diagnoses / Procedures Referred By Contac t Referred To Contact Radiology Diagnoses Adenoma of left adrenal gland Procedures CT Abdomen wo and w Contrast Garo Florez MD [address] [place] [address] Phone: tel: fax: CT Scan - [address] Phone: tel: fax: Referral ID Status Reason Start Date Expiration Date V isits Requested Visits Authorized [id number] Authorized 05/21/2024 05/21/2025 1 1 Encounter Details Date Type Department Care Team (Latest Contact Info) Description 06/22/2024 2:15 PM EDT - 06/22/2024 11:59 PM EDT Hospital Encounter CT Scan - [address] [phone] Discharge Disposition: Home or Self Care Social [...] care for your loved ones. For example, vocational childcare teacher or elderly care for an [...] PM EDT Office Visit Adult Medicine - [place] [address] [place] [address] Leonardo Swenson PA [address] [place] [address] 08/18/2024 1:00 PM EDT Office Visit Orthopedic Surgery - [place] [address] [address] Donny Hughes, NATIVIDADM [address] [address] documented as of this encounter Procedures Procedure Name Priority Date/Time Associated Diagnosis Comments CT ABDOMEN WO AND W CONTRAST Routine 06/22/2024 2:35 PM EDT Adenoma of left adrenal gland documented in this encounter Visit Diagnoses Not on filedocumented in this encounter Administered Medications Inactive Administered Medications - up to 3 most recent administrations Medication Order MAR Action Action Date Dose Rate Site iopamidoL (ISOVUE-370) 370 mg iodine /mL (76 %) injection 100 mL 100 mL, intravenous, Once in imaging, Starting on Sat06/22/24 at 1434, For 1 dose Given 06/22/2024 2:35 PM EDT 100 mL sodium chloride 0.9 % flush 10 mL 10 mL, intravenous, Once, On Sat06/22/24 at 1500, For 1 dose Given 06/22/2024 2:35 PM EDT 10 mL documented in this encounter Additional Health Concerns Assessment Noted Time PHQ-9 Depression Total Score: 0 01/06/20 1:14 PM EST A fall risk assessment has been complete d for the patient 01/06/2024 1:11 PM EST documented as of this encounter Care Teams Manager Access Relationship Specialty Start Date End Date Evelyn Valdez MD [address] [place] [phone] PCP - General Internal Medicine 12/09/18 documented as of this encounter
--- OUTSIDE RECORDS SUMMARY | 2024-06-26 13:06 | XMS_ITS | Clinical Summary ---
Author Organization [facility] [address] [facility] lding Address [address] [place] [address] Phone Care Team Providers Care Alteration Inspector Name Role Phone Evelyn Valdez MD Primary [...] (one) time each day. Mon,wed,Saturday per pulm Active predniSONE (DELTASONE) 5 mg tablet Take [...] minutes after 06/10/19 25 Discontinu ed(Therapy completed) levoFLOXacin (LEVAQUIN) 500 mg tablet Take 1 tablet (500 mg total) by mouth 1 (one) time each day for 10 days. 10 each 5 06/20/19 25 Active Problems Problem Noted Date Diagnosed Date Chronic deep vein thrombosis (DVT) of lower extremity (CMS/[facility] V24, CMS/HCC V28) 11/07/2023 Overview (11/07/2023): Recurrent Diastolic heart failure (CMS/HCC V24, CMS/[facility] V2 8) 07/06/2021 Overview (11/07/2023): Dr. Nava. Grade 1 diastolic dysfunction clinically euvolemic and well compensated Diastolic dysfunction, left ventricle 06/30/2021 Overview (11/07/2023): 06/30/2021 Dr. Elijah Olivas cardiology. No clinical signs central venous congestion. Medical therapy and pulmonary optimization with increased physical activity and breathing exercises recommended. Vascular disease 06/29/2021 DEREK and COPD overlap syndrome ([facility] V24, [facility] V28) 03/24/2021 Atelectasis, left 12/12/2018 Chronically elevated hemidiaphragm 12/12/2018 COPD (chronic obstructive pu lmonary disease) ([facility] V24, [facility] V28) 12/12/2018 Overview (11/07/2023): Moderately severe Vitamin D deficiency 12/12/2018 Paroxysmal atrial fibrillation ([facility] V24, [facility] V28) 12/11/2018 Overview (11/07/2023): On warfarin. Cardioversion 02/2018 Severe obesity (BMI 35.0-39. 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 Anticoagulation- warfarin Encounters Date Type Department Care Team Description 06/22/2024 2:15 PM EDT - 06/22/2024 11:59 PM EDT Hospital Encounter CT Scan - [address] [id number] [place] [address] scan, lung Discharge Disposition: Home or Self Care 06/22/2024 2:15 PM EDT - 06/22/2024 11:59 PM EDT Hospital Encounter CT Scan - [address] [phone] Discharge Disposition: Home or Self Care 06/15/2024 7:38 AM EDT - 06/15/2024 11:59 PM EDT Hospital Encounter [facility] Xray [address] [place] [phone] Dysphagia, unspecified type Discharge Disposition: Home or Self Care 06/12/2024 Telephone Adult Medicine - [address] [phone] Evelyn Valdez MD Medication Problem (Med question); Wheezing; Pneumonia 06/09/2024 2:39 PM EDT - 06/09/2024 11:59 PM EDT Hospital Encounter [address] [address] Acute cough Discharge Disposition: Home or Self Care 06/09/2024 2:30 PM EDT Office Visit [address] [phone] Kelsea Martinez MD Acute cough (Primary Dx) 06/09/[address] [address] Evelyn Valdez MD Fever 05/12/2024 1:15 PM EDT Office Visit Orthopedic Surgery [address] [address] Donny Hughes DPM Arthritis of both ankles (Primary Dx); Dermatophytosis of nail; Peripheral venous insufficiency 05/05/2024 4:30 PM EDT Office Visit Endocrinology - [address] [phone] Garo Florez MD Adenoma of left adrenal gland 04/15/2024 3:52 PM EST - 04/15/2024 11:59 PM EST Hospital Encounter Radiology Department - [address] [phone] Deep vein thrombosis (DVT) of distal vein of right lower extremity, unspecified chronicity (CMS/HCC V24, CMS/HCC V28) Discharge Disposition: Home or Self Care 04/13/2024 1:30 PM EST Office Visit [address] [phone] Evelyn Valdez MD Cellulitis of right lower extremity (Primary Dx); Dysphagia, unspecified type; Deep vein thrombosis (DVT) of distal vein of right lower extremity, unspecified chronicity (CMS/HCC V24, CMS/HCC V28) 03/30/2024 1:14 PM EST - 03/30/2024 11:59 PM EST Hospital Encounter [facility] [place] [address] Pain and swelling of right knee; Fall, initial encounter Discharge Disposition: Home or Self Care 03/30/2024 12:30 PM EST Office Visit Adult [place] [phone] Ashish Medeiros PA Pain and swelling of right knee (Primary Dx); Fall, initial encounter; Chronic deep vein thrombosis (DVT) of proximal vein of right lower extremity ([facility] V24, [facility] V28) 03/30/2024 Telephone Adult [place] [phone] Evelyn Valdez MD Knee Injury (Right Knee Pain ); Fall from Last 3 Months Immunizations Name Administration [...] COMMENT: Non obstructive CAD-mild disease APPENDECTOMY PROCEDURE: IL APPENDECTOMY OTHER SURGICAL HISTORY 09/28/2021 Right PROCEDURE: [place] ENDOVEN ABLTJ INCMPTNT VEIN XTR LASER 1ST VEIN; COMMENT: Dr. 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 Benign prostatic hyperplasia 11/03/2010 DX: Benign prostatic hyperplasia; COMMENT: Dr Portillo Atelectasis, left 12/12/2018 DX:Atelectasis , left Chronically elevated hemidiaphragm 12/12/2018 DX:Chronically elevated hemidiaphragm COPD (chronic obstructive pu lmonary disease) ([facility] V24, [facility] V28) 12/12/2018 DX:COPD (chronic o bstructive pulmonary disease) ([facility]); COMMENT: Moderately severe Diverticulosis 09/22/2010 DX:Diverticulosi s; COMMENT: Past historic diverticulitis DVT, recurrent, lower extremity, chronic DX:DVT, recurrent, lower extremity, chronic GERD (gastroesophageal reflux disease) 09/22/2010 DX:GERD (gastroesophageal reflux disease); COMMENT: Upper endoscopy reportedly nl 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 For example, director of early childhood education or elderly care for an older adult? [...] PM EDT Office Visit Adult Medicine - [place] [address] [place] [address] Leonardo Swenson PA [address] [place] [address] 08/18/2024 1:00 PM EDT Office Visit Orthopedic Surgery - [place] [address] [phone] Donny Hughes, DPM [address] [address] Health Maintenance Due Date Last Done Comments [...] PM EDT Adenoma of left adrenal gland CT CHEST WO CONTRAST Routine 06/22/2024 2:[address] scan, lung XR ESOPHAGRAM Routine 06/15/2024 8:18 AM EDT [...] swelling of right knee Fall, initial encounter LIPID PANEL Routine 03/30/2020 HM HEPATITIS C SCREENING Routine 06/19/2012 from Last 3 Months or Most Recently Relevant to Health Maintenance Results * CT Abdomen wo and w Contrast (06/22/2024 2:35 PM EDT) Anatomical Region Laterality Modality Body Computed Tomogra phy 06/23/2024 1:24 PM EDT Impressions 06/23/2024 2:57 PM EDT Enlargement of the left adrenal nodule now measuring up to 2.5 cm compared with 1.8 cm on 08/08/2023. ??Relative washout is 10% which is indeterminate for an adenoma. ?? Absolute washout is 100% consistent with an adenoma. ??However, it has been reported that a noncalcified, nonhemorrhagic lesion with precontrast attenuation of more than 43 Hounsfield units which is the case for this nodule is suspicious for malignancy regardless of washout characteristics. ??This feature and the interval enlargement of the nodule raise concern for malignancy. POS - [id number] -------- FINAL REPORT -------- Dictated By: Lizett Sanchez Dictated Date: 06/23/2024 13:24 ET Assigned Physician: Lizett Sanchez Reviewed and Electronically Signed By: Lizett Sanchez Signed Date: 06/23/2024 14:57 ET Workstation ID: [id number] Transcribed By: Self Edit Transcribed Date: 06/23/2024 14:03 ET Narrative 06/23/2024 2:57 PM EDT EXAM: CT abdomen HISTORY: Follow-up left adrenal mass. COMPARISON: CT abdomen 08/08/2023, 01/14/2023, and 07/05/2015, chest CT 03/23/2024 TECHNIQUE: CT of the abdomen without and with intravenous contrast and without oral contrast. ??Imaging performed per adrenal protocol. ??100 cc of Isovue-370 administered intravenously. ??Coronal and sagittal reformatted images were generated. The radiation dose total CTDIvol: 62.83 mGy. FINDINGS: Lower thorax: Please refer to the separately dictated chest CT from the same day for comments on the lower chest. Liver: Numerous hepatic cysts again noted with the largest measuring 8.0 cm in the left hepatic lobe. Gallbladder/biliary tree: Multiple tiny calcified gallstones in a nondistended gallbladder. ??No pericholecystic inflammatory changes. ??No biliary ductal dilatation. Spleen: No abnormality detected. Pancreas: No abnormality detected. Adrenal glands: Known left adrenal nodule has enlarged compared with the most recent abdominal CT from 08/08/2023 but stable in size compared with chest CT 03/23/2024. ??The nodule measures 2.5 x 2.2 cm in the axial plane compared with 1.8 x 1.8 cm on the previous abdominal CT. ??On the noncontrasted images, density is 45 Hounsfield units. ??Absolute washout is 100% consistent with an adenoma. ??However, it has been reported that a noncalcified, nonhemorrhagic lesion with precontrast attenuation of more than 43 Hounsfield units is suspicious for malignancy regardless of washout characteristics. ??Relative washout is 10% which is indeterminate. ??No right adrenal nodule. Kidneys/ureters: ??No hydronephrosis. ??Few tiny intrarenal stones on the left. ??Bilateral renal cysts. ??The dominant cyst on the right measuring up to 6.5 cm in the upper kidney has stable thin wall calcification. ??Other too small to characterize hypodense lesions bilaterally statistically represent cysts. Vasculature: Mild atherosclerotic calcifications. ??No abdominal aortic aneurysm. ??Hepatic veins and portal vein are patent. ??Stable incompletely evaluated dilatation of the inferior vena cava below the renal veins which contains a partially visualized chronically fractured inferior vena cava filter. Peritoneum: No evidence of free intraperitoneal air, free fluid, or organized collection. Lymph nodes: No lymphadenopathy detected. Bowel: Limited assessment of bowel without enteric contrast. ??Nonobstructed bowel pattern. ??No bowel inflammatory changes. ??Colonic diverticulosis. Body wall: Partially imaged chronic lipoma in the right lower lateral abdominal wall. Bones: Multilevel degenerative changes in the spine. Procedure Note Lizett Sanchez MD - 06/23/2024 EXAM: CT abdomen HISTORY: Follow-up left adrenal mass. COMPARISON: CT abdomen 08/08/2023, 01/14/2023, and 07/05/2015, chest CT03/23/2024 TECHNIQUE: CT of the abdomen without and with intravenous contrast andwithout oral contrast. Imaging performed per adrenal protocol. 100 cc ofIsovue-370 administered intravenously. Coronal and sagittal reformattedimages were generated. The radiation dose total CTDIvol: 62.83 mGy. FINDINGS: Lower thorax: Please refer to the separately dictated chest CT from for comments on the lower chest. Liver: Numerous hepatic cysts again noted with the largest measuring 8.0cm in the left hepatic lobe. Gallbladder/biliary tree: Multiple tiny calcified gallstones in anondistended gallbladder. No pericholecystic inflammatory changes. Nobiliary ductal dilatation. Spleen: No abnormality detected. Pancreas: No abnormality detected. Adrenal glands: Known left adrenal nodule has enlarged compared with themost recent abdominal CT from 08/08/2023 but stable in size compared withchest CT 03/23/2024. The nodule measures 2.5 x 2.2 cm in the axial planecompared with 1.8 x 1.8 cm on the previous abdominal CT. On thenoncontrasted images, density is 45 Hounsfield units. Absolute washout is100% consistent with an adenoma. However, it has been reported that anoncalcified, nonhemorrhagic lesion with precontrast attenuation of morethan 43 Hounsfield units is suspicious for malignancy regardless ofwashout characteristics. Relative washout is 10% which is indeterminate.No right adrenal nodule. Kidneys/ureters: No hydronephrosis. Few tiny intrarenal stones on theleft. Bilateral renal cysts. The dominant cyst on the right measuring upto 6.5 cm in the upper kidney has stable thin wall calcification. Othertoo small to characterize hypodense lesions bilaterally statisticallyrepresent cysts. Vasculature: Mild atherosclerotic calcifications. No abdominal aorticaneurysm. Hepatic veins and portal vein are patent. Stable incompletelyevaluated dilatation of the inferior vena cava below the renal veins whichcontains a partially visualized chronically fractured inferior vena cavafilter. Peritoneum: No evidence of free intraperitoneal air, free fluid, ororganized collection. Lymph nodes: No lymphadenopathy detected. Bowel: Limited assessment of bowel without enteric contrast.Nonobstructed bowel pattern. No bowel inflammatory changes. Colonicdiverticulosis. Body wall: Partially imaged chronic lipoma in the right lower lateralabdominal wall. Bones: Multilevel degenerative changes in the spine. IMPRESSION: Enlargement of the left adrenal nodule now measuring up to 2.5 cm comparedwith 1.8 cm on 08/08/2023. Relative washout is 10% which is indeterminatefor an adenoma. Absolute washout is 100% consistent with an adenoma. However, it has beenreported that a noncalcified, nonhemorrhagic lesion with precontrastattenuation of more than 43 Hounsfield units which is the case for thisnodule is suspicious for malignancy regardless of washout characteristics.This feature and the interval enlargement of the nodule raise concern formalignancy. POS - [id number] -------- FINAL REPORT -------- Dictated By: Lizett Sanchez Dictated Date: 06/23/2024 13:24 ET Assigned Physician: Lizett Sanchez Reviewed and Electronically Signed By: Lizett Sanchez Signed Date: 06/23/2024 14:57 ET Workstation ID: [id number] Transcribed By: Self Edit Transcribed Date: 06/23/2024 14:03 ET Garo Florez MD IMG CT PROCEDURES Final Result * CT Chest wo Contrast (06/22/2024 2:33 [...] for comments on abdominal findings. POS - [id number] -------- FINAL REPORT -------- Dictated By: Lizett Sanchez Dictated Date: 06/23/2024 13:04 ET Assigned Physician: Lizett Sanchez Reviewed and Electronically Signed By: Lizett Sanchez Signed Date: 06/23/2024 15:00 ET Workstation ID: [id number] Transcribed By: Self Edit Transcribed Date: 06/23/2024 [...] day forcomments on abdominal findings. POS - [id number] -------- FINAL REPORT -------- Dictated By: Lizett Sanchez Dictated Date: 06/23/2024 13:04 ET Assigned Physician: Lizett Sanchez Reviewed and Electronically Signed By: Lizett Sanchez Signed Date: 06/23/2024 15:00 ET Workstation ID: [id number] Transcribed By: Self Edit Transcribed Date: 06/23/2024 13:24 ET Leonardo WING IMG CT PROCEDURES Final Result * XR Esophagram (06/15/2024 8:18 AM EDT) [...] Signed Date: 06/15/2024 11:47 ET Workstation ID: [id number] Transcribed By: Self Edit Transcribed Date: 06/15/2024 11:43 ET Resident/PA/TRAFFIC TECHNICIAN: No Cesar Narrative 06/15/2024 11:47 AM EDT FINDINGS: Double contrast esophagram performed. Exam was limited due to patient inability to lay flat. COMPARISON: 2 view chest x-ray October 22, 2017 was reviewed. No prior esophagram imaging. HISTORY: Patient is a 78-year-old male with history of dysphagia, aspiration, cough. Goring Cutter radiographs: 1 view chest radiograph demonstrates stable [...] 78-year-old male with history of dysphagia,aspiration, cough. Goring Cutter radiographs: 1 view chest radiograph demonstrates stable [...] Signed Date: 06/15/2024 11:47 ET Workstation ID: [id number] Transcribed By: Self Edit Transcribed Date: 06/15/2024 11:43 ET Resident/PA/TRAFFIC TECHNICIAN: No Cesar us Evelyn Valdez MD IMG FLUOROSCOPY [place] OCEDURES Final Result * XR Chest 2 Views (06/09/2024 2:46 PM EDT) Anatomical Region Laterality Modality Body Radiographic Julienne ging 06/09/2024 5:09 PM EDT Impressions 06/09/2024 5:24 PM EDT Findings concerning for right lower lobe pneumonia. ??Follow-up recommended to ensure resolution. POS - [id number] -------- FINAL REPORT -------- Dictated By: Lizett Sanchez Dictated Date: 06/09/2024 17:09 ET Assigned Physician: Lizett Sanchez Reviewed and Electronically Signed By: Lizett Sanchez Signed Date: 06/09/2024 17:24 ET Workstation ID: [id number] Transcribed By: Self Edit Transcribed Date: 06/09/2024 [...] pneumonia. Follow-up recommendedto ensure resolution. POS - [id number] -------- FINAL REPORT -------- Dictated By: Lizett Sanchez Dictated Date: 06/09/2024 17:09 ET Assigned Physician: Lizett Sanchez Reviewed and Electronically Signed By: Lizett Sanchez Signed Date: 06/09/2024 17:24 ET Workstation ID: [id number] Transcribed By: Self Edit Transcribed Date: 06/09/2024 17:09 ET us Kelsea Martinez MD IMG XR PROCEDURES Isela l Result * Creatinine (05/22/2024 2:11 PM EDT) Creatinine 0.84 0.70 - 1.30 mg/dL LAB CHEMISTRY METHOD 05/22/2024 4:35 PM EDT [facility] eGFR 90 >=60 mL/min/1. 73m2 LAB CHEMISTRY METHOD 05/22/2024 4:35 PM EDT [facility] Comment:Calculation based on the??Chronic Kidney Disease Epidemiology Collaboration (CKD-EPI) equation refit??without adjustment for race. Blood Venous blood specimen / Unknown Venipuncture / Unknown 05/22/2024 2:11 PM EDT 05/22/2024 2:11 PM EDT us Garo Florez MD LAB BLOOD ORDERABLES Final Resul t Performing Organization Address [facility]/ZIP Co de Phone Number [facility] [address] [place] [address], [place] [phone] * BUN (05/22/2024 2:11 PM EDT) BUN 22 5 - 25 mg/dL LAB CHEMISTRY METHOD 05/22/2024 4:35 PM EDT [facility] Blood Venous blood specimen / Unknown Venipuncture / Unknown 05/22/2024 2:11 PM EDT 05/22/2024 2:11 PM EDT us Garo Florez MD LAB BLOOD ORDERABLES Final Resul t Performing Organization Address [facility] Co de Phone Number [facility] [address] [place] [address], [place] [phone] * Vascular US duplex lower extremity venous [...] Signed Date: 04/15/2024 16:45 ET Workstation ID: [id number] Transcribed By: Self Edit Transcribed Date: 04/15/2024 [...] Signed Date: 04/15/2024 16:45 ET Workstation ID: [id number] Transcribed By: Self Edit Transcribed Date: 04/15/2024 [...] Signed Date: 03/30/2024 13:56 ET Workstation ID: [id number] Transcribed By: Self Edit Transcribed Date: 03/30/2024 [...] Signed Date: 03/30/2024 13:56 ET Workstation ID: [id number] Transcribed By: Self Edit Transcribed Date: 03/30/2024 13:45 ET us Ashish WING IMG XR PROCEDURES Final Resul t * (ABNORMAL) Manual differential (03/30/2024 1:06 PM EST) Neutrophils % 68.0 % LAB HEMETOLOGY METHOD 03/30/2024 3:44 PM [facility] Bands % 2.0 % LAB HEMETOLOGY METHOD 03/30/2024 3:44 PM [facility] Lymphocytes % 10.0 % LAB HEMETOLOGY METHOD 03/30/2024 3:44 PM [facility] Reactive Lymphocyte 1.00 % LAB HEMETOLOGY METHOD 03/30/2024 3:44 PM [facility] Monocytes % 17.0 % LAB HEMETOLOGY METHOD 03/30/2024 3:44 PM [facility] Eosinophils % 0.0 % LAB HEMETOLOGY METHOD 03/30/2024 3:44 PM [facility] Basophils % 0.0 % LAB HEMETOLOGY METHOD 03/30/2024 3:44 PM [facility] Promyelocytes % 3.0(H) % LAB HEMETOLOGY METHOD 03/30/2024 3:44 PM [facility] Neutrophils Absolute Manual 7.55(H) 1.50 - 7.00 K/mcL LAB HEMETOLOGY METHOD 03/30/2024 3:44 PM [facility] Bands Absolute Manual 0.22(H) 0.00 - 0.00 K/mcL LAB HEMETOLOGY METHOD 03/30/2024 3:44 PM [facility] Lymphocytes Absolute 1.11 1.00 - 5.00 K/mcL LAB HEMETOLOGY METHOD 03/30/2024 3:44 PM [facility] Reactive Lymph Abs Manual 0.11(H) 0.00 - 0.00 lym LAB HEMETOLOGY METHOD 03/30/2024 3:44 PM [facility] Monocytes Absolute Manual 1.89(H) 0.20 - 1.00 K/mcL LAB HEMETOLOGY METHOD 03/30/2024 3:44 PM [facility] Eosinophils Absolute Manual 0.00 0.00 - 0.50 K/mcL LAB HEMETOLOGY METHOD 03/30/2024 3:44 PM EST [facility] Basophils Absolute Manual 0.00 0.00 - 0.20 K/[facility] LAB HEMETOLOGY METHOD 03/30/2024 3:44 PM EST [facility] Promyelocytes Absolute Manual 0.33(H) 0.00 - 0.00 K/[facility] LAB HEMETOLOGY METHOD 03/30/2024 3:44 PM EST [facility] Rbc Morphology Present( A) Consistent with indices, Normal for [place] LAB HEMETOLOGY METHOD 03/30/2024 3:44 PM EST [facility] Comment:RBC: Morphology agre es with CBC Platelet Morphology - [facility] See Note(A) Normal LAB HEMETOLOGY METHOD 03/30/2024 3:44 PM EST [facility] Comment:PLT: Large platelets seen Toxic Granules Present Present( A) (none) LAB HEMETOLOGY METHOD 03/30/2024 3:44 PM EST [facility] Blood Venous blood specimen / Unknown Venipuncture / Unknown 03/30/2024 1:06 PM EST 03/30/2024 1:06 PM EST Ashish WING LAB BLOOD ORDERABLES Final Re sult [facility] [address] [place] [address], * (ABNORMAL) CBC auto differential (03/30/2024 1:06 PM EST) WBC 11.1(H) 4.8 - 10.8 K/[facility] HEMETOLOGY METHOD 03/30/2024 3:44 PM EST [facility] RBC 4.30(L) 4.50 - 5.50 M/[facility] LAB HEMETOLOGY METHOD 03/30/2024 3:44 PM EST [facility] Hemoglobin 12.5(L) 13.5 - 17.5 g/dL LAB HEMETOLOGY METHOD 03/30/2024 3:44 PM EST [facility] Hematocrit 40.1(L) 42.0 - 54.0 % LAB HEMETOLOGY METHOD 03/30/2024 3:44 PM [facility] MCV 94.1 79.0 - 98.0 FL LAB HEMETOLOGY METHOD 03/30/2024 3:44 PM [facility] MCH 29.3 27.0 - 32.0 pcg LAB HEMETOLOGY METHOD 03/30/2024 3:44 PM [facility] MCHC 31.2(L) 32.0 - 37.0 g/dL LAB HEMETOLOGY METHOD 03/30/2024 3:44 PM [facility] RDW 16.0(H) 11.0 - 15.0 % LAB HEMETOLOGY METHOD 03/30/2024 3:44 PM [facility] Platelets 102(L) 130 - 400 K/mcL LAB HEMETOLOGY METHOD 03/30/2024 3:44 PM [facility] MPV 10.5 7.0 - 11.0 FL LAB HEMETOLOGY METHOD 03/30/2024 3:44 PM [facility] NRBC 0.0 <1.0 % LAB HEMETOLOGY METHOD 03/30/2024 3:44 PM [facility] NRBC Absolute 0.00 <0.10 K/mcL LAB HEMETOLOGY METHOD 03/30/2024 3:44 PM [facility] Blood Venous blood specimen / Unknown Venipuncture / Unknown 03/30/2024 1:06 PM EST 03/30/2024 1:06 PM EST us Ashish WING LAB BLOOD ORDERABLES Final Re sult [facility] [address] [place] [address], [place] [phone] * (ABNORMAL) Prothrombin time with INR (03/30/2024 1:06 PM EST) [facility] Protime 32.2(H) 10.6 - 13.9 sec LAB COAGULATION METHOD 03/30/2024 2:26 PM EST [facility] INR 2.6 LAB COAGULATION METHOD 03/30/2024 2:26 PM EST [facility] Blood Venous blood specimen / Unknown Venipuncture / Unknown 03/30/2024 1:06 PM EST 03/30/2024 1:06 PM EST Ashish WING LAB BLOOD ORDERABLES Final Re sult [facility] [address] [place] [address], [place] [phone] * (ABNORMAL) C-reactive protein (03/30/2024 1:06 PM EST) [facility] C-Reactive Protein 5.59(H) <=0.50 mg/dL LAB CHEMISTRY METHOD 03/30/2024 2:56 PM EST [facility] Blood Venous blood specimen / Unknown Venipuncture / Unknown 03/30/2024 1:06 PM EST 03/30/2024 1:06 PM EST Ashish WING LAB BLOOD ORDERABLES Final Re sult [facility] [address] [place] [address], [place] [phone] * Lipid panel (03/30/2020) [facility] LDL/HDL Ratio 3 0 - 4 Triglycerides 114 0 - 150 mg/dL Cholesterol 132 0 - 200 mg/dL HDL 43 >=40 mg/dL LDL Cholesterol 67 0 - 100 mg/dL Blood Venous blood specimen / Unknown us Historical Provider LAB BLOOD ORDERABLES Isela l Result * Hepatitis C Screening (06/19/2012) Hepatitis C Screening abstracted us Historical Provider HEALTH MAINTENANCE Final Result from Last 3 Months or Most Recently Relevant to Health Maintenance Insurance * Guarantor: Jay Gonzales Account Type Relation to Patient Date of Phone Billing Address Personal/Family Self 1945 [phone] (Work) [address] [place] [address] [employer] MED[employer]ARE Care Teams Alteration Inspector Relationship Specialty Start Date End Date Evelyn Valdez MD [address] [place] [id number] PCP - General Internal Medicine 12/09/18
[2024-06-26 13:11] LABS: Prothrombin Time Whole Bld POC 27.1 sec (11.1-13.5); ~PT, ~INR - Anti Coag Clinic 2.3 (0.9-1.1)
--- NOTE | 2024-06-26 13:17 | MHC.OFFVISCO ---
Intake Intake Visit Reasons: Anticoagulation Allergies albuterol Adverse Reaction (Intermediate, Verified 06/26/24 13:04) Palpitations amoxicillin [From Augmentin] Adverse Reaction (Intermediate, Verified 06/26/24 13:04) Nausea and Vomiting, dizziness clavulanic acid [From Augmentin] Adverse Reaction (Intermediate, Verified 06/26/24 13:04) Nausea and Vomiting, dizziness Medication List - Last Reconciled 06/26/24 by Chaya Yarbrough RN acetaminophen 1,000 mg PO Q6H PRN acetazolamide 250 mg PO DAILY atorvastatin 20 mg PO DAILY azithromycin 250 mg PO 3XW diltiazem HCl CD 120 mg PO DAILY docusate sodium 200 mg PO DAILY flecainide 100 mg PO Q12H fluticasone propion-salmeterol 250-50 mcg/dose (Wixela Inhub) 1 inh inhalation Q12H 30 days furosemide 80 mg (2 x 40 mg) PO DAILY levalbuterol HCl 1.25 mg (0.5 mL) inhalation RQ4H WHILE AWAKE 90 days levalbuterol tartrate 45 mcg/actuation 2 puffs inhalation Q4-6H PRN 90 days multivitamin 1 tab PO DAILY potassium chloride ER 10 mEq PO DAILY sennosides (senna) 25.8 mg PO BEDTIME warfarin See Protocol 7.5 mg orally 7.5 X 4 DAYS/ 5MG X 3 DAYS; Nursing Note INR: 2.3 in therapeutic range Medications and supplements reviewed pt recoverd from URI vs allergy vs CHF/COPD - completed antb x and steroids Denies any signs and symptoms of bleeding or bruising or clotting. Bleeding, bruising, clotting discussed Nutritional guidance given Dose: 7.5MG X 2 DAYS/ 5MG X 5 DAYS F/U INR: 3 WEEKS Patient verbalizes understanding of instructions given Anti-Coag Initial Assessment Social Hx Patient Tobacco Use Status: Former Tobacco user alcohol intake: current Alcohol intake frequency: holidays/special occasions only Coding Level of Care Code Est Patient Level 1 Diagnoses Current use of anticoagulant therapy Z79.01 Assessment & Plan Assessment & Plan (1) Current use of anticoagulant therapy: Code(s): Z79.01 - long term care administrator (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
== END 2024-06-26 13:20 | disposition home or self-care (01) ==
LOC: HO.ACS 13:04
PROVIDERS: PCP Internal Medicine; Visit Provider Internal Medicine Medical Oncology
DX: Z79.01 Long term (current) use of anticoagulants (principal)

== ENCOUNTER → 2024-06-26 13:04 | Outpatient (BNVA) | payer MEDICARE, SELFPAY | PROVIDERS: PCP Internal Medicine; Visit Provider Internal Medicine Medical Oncology | DX: I48.19 Other persistent atrial fibrillation (principal); Z86.718 Personal history of other venous thrombosis and embolism; Z79.01 Long term (current) use of anticoagulants; Z51.81 Encounter for therapeutic drug level monitoring | CPT/HCPCS: 85610; 99211 ==

== ENCOUNTER → 2024-07-03 14:37 | Outpatient (REF) | payer MEDICARE, SELFPAY ==
--- OUTSIDE RECORDS SUMMARY | 2024-07-03 14:38 | XMS_ITS | Clinical Summary ---
Author Organization [facility] [address] [facility] lding Address [address] [place] [address] Phone Care Team Providers Care Informatics Analyst Name Role Phone Evelyn Valdez MD Primary [...] deep vein thrombosis (DVT) of lower extremity (CMS/[facility] V24, CMS/HCC V28) 11/07/2023 Overview (11/07/2023): Recurrent Diastolic heart failure (CMS/HCC V24, CMS/[facility] V2 8) 07/06/2021 Overview (11/07/2023): Dr. Nava. Grade 1 diastolic dysfunction clinically euvolemic and well compensated Diastolic dysfunction, left ventricle 06/30/2021 Overview (11/07/2023): 06/30/2021 Dr. Elijah Olivas cardiology. No clinical signs central venous congestion. Medical therapy and pulmonary optimization with increased physical activity and breathing exercises recommended. Vascular disease 06/29/2021 DEREK and COPD overlap syndrome ([facility] V24, [facility]/ [facility] V28) 03/24/2021 Atelectasis, left 12/12/2018 Chronically elevated hemidiaphragm 12/12/2018 COPD (chronic obstructive pu lmonary disease) ([facility] V24, [facility] V28) 12/12/2018 Overview (11/07/2023): Moderately severe Vitamin D deficiency 12/12/2018 Paroxysmal atrial fibrillation ([facility] V24, [facility] /[facility] V28) 12/11/2018 Overview (11/07/2023): On warfarin. Cardioversion 02/2018 Severe obesity (BMI 35.0-39. 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 Anticoagulation- warfarin Encounters Date Type Department Care Team Description 06/30/2024 Telephone Adult Medicine - [address] [phone] Evelyn Valdez MD Results 06/22/2024 2:15 PM EDT - 06/22/2024 11:59 PM EDT Hospital Encounter CT Scan - [address] [phone] scan, lung Discharge Disposition: Home or Self Care 06/22/2024 2:15 PM EDT - 06/22/2024 11:59 PM EDT Hospital Encounter CT Scan - [address] [phone] Discharge Disposition: Home or Self Care 06/15/2024 7:38 AM EDT - 06/15/2024 11:59 PM EDT Hospital Encounter [facility] [address] [place] [phone] Dysphagia, unspecified type Discharge Disposition: Home or Self Care 06/12/2024 Telephone Adult [address] [phone] Evelyn Valdez MD Medication Problem (Med question); Wheezing; Pneumonia 06/09/2024 2:39 PM EDT - 06/09/2024 11:59 PM EDT Hospital Encounter Xray [address] [phone] Acute cough Discharge Disposition: Home or Self Care 06/09/2024 2:30 PM EDT Office Visit [address] [phone] Kelsea Martinez MD Acute cough (Primary Dx) 06/09/2024 Telephone Adult [address] [phone] Evelyn Valdez MD Fever 05/12/2024 1:15 PM EDT Office Visit Orthopedic Surgery [address] [phone] Donny Hughes, DPM Arthritis of both ankles (Primary Dx); Dermatophytosis of nail; Peripheral venous insufficiency 05/05/2024 4:30 PM EDT Office Visit Endocrinology - [address] [phone] Garo Florez MD Adenoma of left adrenal gland 04/15/2024 3:52 PM EST - 04/15/2024 11:59 PM EST Hospital Encounter Radiology Department - [address] [phone] Deep vein thrombosis (DVT) of distal vein of right lower extremity, unspecified chronicity (CMS/HCC V24, CMS/HCC V28) Discharge Disposition: Home or Self Care 04/13/2024 1:30 PM EST Office Visit Adult [address] [phone] Evelyn Valdez MD Cellulitis of right lower extremity (Primary Dx); Dysphagia, unspecified type; Deep vein thrombosis (DVT) of distal vein of right lower extremity, unspecified chronicity (CMS/HCC V24, CMS/[facility] V28) from Last 3 Months Immunizations Name [...] COMMENT: Non obstructive CAD-mild disease APPENDECTOMY PROCEDURE: VT APPENDECTOMY OTHER SURGICAL HISTORY 09/28/2021 Right PROCEDURE: VT ENDOVEN ABLTJ INCMPTNT VEIN XTR LASER 1ST VEIN; COMMENT: Dr. Wall Medical History Medical History Date Comments Atrial flutter ([facility] V24, [facility] V28) 12/11/2018 DX:Atrial flutter ([facility]); COM MENT: On warfarin Adrenal adenoma 04/10/2016 [...] hemidiaphragm COPD (chronic obstructive pu lmonary disease) ([facility] V24, [facility] V28) 12/12/2018 DX:COPD (chronic o bstructive pulmonary disease) ([facility]); COMMENT: Moderately severe Diverticulosis 09/22/2010 [...] for your loved ones. For example, child development associate teacher or elderly care for an older [...] 1:45 PM EDT Office Visit Adult Medicine [facility] [address] [place] [address] Leonardo Swenson PA [address] [place] [address] 08/18/2024 1:00 PM EDT Office Visit Orthopedic Surgery - [place] [address] [phone] Donny Hughes, DPM [address] [phone] Health Maintenance Due Date Last Done Comments [...] extremity, unspecified chronicity (CMS/HCC V24, CMS/HCC V28) LIPID PANEL Routine 03/30/2020 HM HEPATITIS C [...] nodule raise concern for malignancy. POS - [id number] -------- FINAL REPORT -------- Dictated By: Lizett Sanchez Dictated Date: 06/23/2024 13:24 ET Assigned Physician: Lizett Sanchez Reviewed and Electronically Signed By: Lizett Sanchez Signed Date: 06/23/2024 14:57 ET Workstation ID: [id number] Transcribed By: Self Edit Transcribed Date: 06/23/2024 [...] the nodule raise concern formalignancy. POS - [id number] -------- FINAL REPORT -------- Dictated By: Lizett Sanchez Dictated Date: 06/23/2024 13:24 ET Assigned Physician: Lizett Sanchez Reviewed and Electronically Signed By: Lizett Sanchez Signed Date: 06/23/2024 14:57 ET Workstation ID: [id number] Transcribed By: Self Edit Transcribed Date: 06/23/2024 14:03 ET Garo Florez MD IM CT PROCEDURES Final Result * CT Chest [...] for comments on abdominal findings. POS - [id number] -------- FINAL REPORT -------- Dictated By: Lizett Sanchez Dictated Date: 06/23/2024 13:04 ET Assigned Physician: Lizett Sanchez Reviewed and Electronically Signed By: Lizett Sanchez Signed Date: 06/23/2024 15:00 ET Workstation ID: [id number] Transcribed By: Self Edit Transcribed Date: 06/23/2024 [...] day forcomments on abdominal findings. POS - [id number] -------- FINAL REPORT -------- Dictated By: Lizett Sanchez Dictated Date: 06/23/2024 13:04 ET Assigned Physician: Lizett Snachez Reviewed and Electronically Signed By: Lizett Sanchez Signed Date: 06/23/2024 15:00 ET Workstation ID: [id number] Transcribed By: Self Edit Transcribed Date: 06/23/2024 [...] Signed Date: 06/15/2024 11:47 ET Workstation ID: [id number] Transcribed By: Self Edit Transcribed Date: 06/15/2024 11:43 ET Resident/PA/OUTSIDE RESIDENTIAL SALES PROFESSIONAL: No Cesar Narrative 06/15/2024 11:47 AM EDT FINDINGS: Double contrast esophagram performed. Exam was limited due to patient inability to lay flat. COMPARISON: 2 view chest x-ray October 22, 2017 was reviewed. No prior esophagram imaging. HISTORY: Patient is a 78-year-old male with history of dysphagia, aspiration, cough. Hedis Review Nurse radiographs: 1 view chest radiograph demonstrates stable [...] 78-year-old male with history of dysphagia,aspiration, cough. Hedis Review Nurse radiographs: 1 view chest radiograph demonstrates stable [...] Venancio Diana Reviewed and Electronically Signed By: Venancoi Diana Signed Date: 06/15/2024 11:47 ET Workstation ID: [id number] Transcribed By: Self Edit Transcribed Date: 06/15/2024 11:43 ET Resident/PA/OUTSIDE RESIDENTIAL SALES PROFESSIONAL: No Cesar Evelyn Valdez MD IMG FLUOROSCOPY VT OCEDURES Final Result * XR Chest 2 Views (06/09/2024 2:46 PM EDT) Anatomical Region Laterality Modality Body Radiographic Julienne ging 06/09/2024 5:09 PM EDT Impressions 06/09/2024 5:24 PM EDT Findings concerning for right lower lobe pneumonia. ??Follow-up recommended to ensure resolution. POS - [id number] -------- FINAL REPORT -------- Dictated By: Lizett Sanchez Dictated Date: 06/09/2024 17:09 ET Assigned Physician: Lizett Sanchez Reviewed and Electronically Signed By: Lizett Sanchez Signed Date: 06/09/2024 17:24 ET Workstation ID: [id number] Transcribed By: Self Edit Transcribed Date: 06/09/2024 [...] pneumonia. Follow-up recommendedto ensure resolution. POS - [id number] -------- FINAL REPORT -------- Dictated By: Lizett Sanchez Dictated Date: 06/09/2024 17:09 ET Assigned Physician: Lizett Sanchez Reviewed and Electronically Signed By: Lizett Sanchez Signed Date: 06/09/2024 17:24 ET Workstation ID: [id number] Transcribed By: Self Edit Transcribed Date: 06/09/2024 17:09 ET us Kelsea Martinez MD IMG XR PROCEDURES Isela l Result * Creatinine (05/22/2024 2:11 PM EDT) Creatinine 0.84 0.70 - 1.30 mg/dL LAB CHEMISTRY METHOD 05/22/2024 4:35 PM EDT [facility] eGFR 90 >=60 mL/min/1. 73m2 LAB CHEMISTRY METHOD 05/22/2024 4:35 PM EDT [facility] Comment:Calculation based on the??Chronic Kidney Disease Epidemiology Collaboration (CKD-EPI) equation refit??without adjustment for race. Blood Venous blood specimen / Unknown Venipuncture / Unknown 05/22/2024 2:11 PM EDT 05/22/2024 2:11 PM EDT us Garo Florez MD LAB BLOOD ORDERABLES Final Resul t Performing Organization Address [facility] Co de Phone Number [facility] [address] [place] [address], [place] [phone] * BUN (05/22/2024 2:11 PM EDT) BUN 22 5 - 25 mg/dL LAB CHEMISTRY METHOD 05/22/2024 4:35 PM EDT [facility] Blood Venous blood specimen / Unknown Venipuncture / Unknown 05/22/2024 2:11 PM EDT 05/22/2024 2:11 PM EDT us Garo Florez MD LAB BLOOD ORDERABLES Final Resul t Performing Organization Address [facility] de Phone Number [facility] [address] [place] [address], [place] [phone] * Vascular US duplex lower extremity venous [...] Signed Date: 04/15/2024 16:45 ET Workstation ID: [id number] Transcribed By: Self Edit Transcribed Date: 04/15/2024 [...] Signed Date: 04/15/2024 16:45 ET Workstation ID: [id number] Transcribed By: Self Edit Transcribed Date: 04/15/2024 16:41 ET Evelyn Valdez MD CV VASCULAR PROCED URES Final Result * Lipid panel (03/30/2020) LDL/HDL Ratio 3 0 - 4 Triglycerides 114 0 - 150 mg/dL Cholesterol 132 0 - 200 mg/dL HDL 43 >=40 mg/dL LDL Cholesterol 67 0 - 100 mg/dL Blood Venous blood specimen / Unknown Historical Provider LAB BLOOD ORDERABLES Isela l Result * Hepatitis C Screening (06/19/2012) Hepatitis C Screening abstracted Historical Provider HEALTH MAINTENANCE Final Result from Last 3 Months or Most Recently Relevant to Health Maintenance Insurance * Guarantor: Jay Gonzales Account Type Relation to Patient Date of Phone Billing Address Personal/Family Self 1945 [phone] (Work) [address] [place] [address] [employer] MED[employer] Care Teams Informatics Analyst Relationship Specialty Start Date End Date Evelyn Valdez MD [address] [place] [id number] PCP - General Internal Medicine 12/09/18
--- NOTE | 2024-07-03 14:39 | CA_ITS ---
Transthoracic Echocardiogram Patient (Last, First, Middle): Jay Gonzales, Gender: Male Date of : 1945 Age: 78 Procedure Date: 07/03/2024 Procedure Type: Transthoracic Echocardiogram Location: OP Height: 170.18 cm Weight: 110.22 kg BSA: 2.20 m2 Heart Rate: bpm BP: 128 / 66 mmHg Personal Health Coach: TO Referring MD: Justin Nava MD Symptoms: I50.30 - Unspecified diastolic (congestive) heart failure Study Quality: Technically Difficult Conclusions: - Normal left ventricular size and systolic function. The visually estimated ejection fraction is between 55-60%. - The basal inferior segment is akinetic. - Moderately increased right ventricular cavity size. - The left atrium is moderately dilated. The right atrium is severely dilated. - Cannot rule out bicuspid aortic valve. - The mitral regurgitation jet is directed anteriorly. - There is moderate mitral valve regurgitation. - Significantly elevated right atrial pressure. Mild pulmonary hypertension is present. - There is moderate dilatation of the sinuses of Valsalva measuring 4.55 cm and mild dilatation of the ascending aorta measuring 4.10 cm. Findings Procedure Information The study quality is limited by the patients inability to tolerate the test and patients body habitus. Left Ventricle Normal left ventricular size and systolic function. The visually estimated ejection fraction is between 55-60%. There is evidence of regional wall motion abnormalities. Diastolic function is normal for age. Wall Motion Rest Echo Findings The basal inferior segment is akinetic. Right Ventricle Moderately increased right ventricular cavity size. There is normal right ventricular systolic function. Atria The left atrium is moderately dilated. The right atrium is severely dilated. Aortic Valve There is no aortic valve stenosis. There is no aortic valve regurgitation. Cannot rule out bicuspid aortic valve. Mitral Valve The mitral valve appears normal. There is moderate mitral valve regurgitation. The mitral regurgitation jet is directed anteriorly. There is no mitral valve stenosis. Tricuspid Valve Normal tricuspid valve structure. There is trace tricuspid valve regurgitation. The right ventricular systolic pressure is 42 mmHg. Significantly elevated right atrial pressure. Mild pulmonary hypertension is present. Great Vessels There is moderate dilatation of the sinuses of Valsalva measuring 4.55 cm and mild dilatation of the ascending aorta measuring 4.10 cm. Venous The inferior vena cava is dilated and does not collapse with inspiration. Pericardium/Pleural There is no evidence of pericardial effusion. Multiple liver cysts noted as before. Prior Study Comparison Changes noted compared to prior study dated: 06/12/2023. Moderate RV dilation, mild pulm HTN. Eccentric moderate MR. Basal inferior akinesis. Measurements 2D Linear Measurements IVSd: 1.16 0.6-0.9/0.6-1.0 cm LVIDd: 4.42 3.9-5.3/4.2-5.9 cm LVIDd Index: 2.01 2.4-3.2/2.2-3.1 cm/m2 LVIDs: 3.31 2.0-3.6 cm LVPWd: 0.91 0.7-1.1 cm LA Diam: 3.80 2.7-3.8/3.0-4.0 cm LAIDs Index: 1.73 1.5-2.3 cm/m2 LV Mass: 194.23 67-162/88-224 g LV Mass Index: 88.28 43-95/49-115 g/m2 LVOT Diam: 2.60 3.0+(-)1.3 cm Mitral Valve MV Pk E: 0.64 MV PK A: 0.81 MV Decel Time: 226.00 E/A: 0.80 E'Lateral: 10.90 E'Medial: 8.59 E/E' Med: 7.50 E/E' Lat: 5.90 PHT: 66.00 MVA PHT: 3.33 Decel Benson: 2.84 Aortic Valve AoV Pk Hernandez: 1.38 AoV Mn Hernandez: 1.01 AoV VTI: 0.28 AoV Pk Grad: 8.00 Aov Mn Grad: 5.00 AGUSTIN Cont.VTI: 3.97 LVOT LVOT Pk Hernandez: 1.06 LVOT Mn Hernandez: 0.76 LVOT VTI: 0.21 LVOT Pk Grad: 4.00 LVOT Mn Grad: 3.00 LVOT Diam: 2.60 LVOT Area: 5.31 Diastolic Function MV Pk E: 0.64 MV Pk A: 0.81 E/A: 0.80 E'Medial: 8.59 E/E' Med: 7.50 E' Laterial: 10.90 E/E' Lat: 5.90 Right Ventricle TAPSE (mm): 18.80 TVS' Hernandez: 10.90 Tricuspid Valve TR Pk Hernandez: 2.90 TR Pk Grad: 34.00 RA Press: 8.00 RVSP: 42.00 Great Vessels Aorta Sinus of Valsalva: 4.55 2.0-3.5 cm Ao Asc: 4.10 2.1-3.4 cm Updated in Other Vendor System with Status of Final Real Fang MD electronically signed on 07/07/2024 10:58:21 AM with status of Final
== END ==
LOC: HO.CARD 14:37
PROVIDERS: PCP Internal Medicine; Visit Provider Internal Medicine Cardiovascular Disease
DX: I50.30 Unspecified diastolic (congestive) heart failure (principal); I34.0 Nonrheumatic mitral (valve) insufficiency
CPT/HCPCS: 93306

== ENCOUNTER → 2024-07-03 14:39 | Outpatient (BNV) | payer MEDICARE, SELFPAY | PROVIDERS: PCP Internal Medicine; Visit Provider Internal Medicine Cardiovascular Disease | DX: I50.30 Unspecified diastolic (congestive) heart failure (principal); I51.7 Cardiomegaly; I34.0 Nonrheumatic mitral (valve) insufficiency; I27.20 Pulmonary hypertension, unspecified | CPT/HCPCS: 93306 ==

== ENCOUNTER 2024-07-15 13:12 | Outpatient (AMB) | payer MEDICARE, SELFPAY ==
--- OUTSIDE RECORDS SUMMARY | 2024-07-15 13:30 | XMS_ITS | Clinical Summary ---
Author Organization [facility] [address] [facility] lding Address [address] [place] [address] Phone Care Team Providers Care [employer] Science Tutor Name Role Phone Evelyn Valdez MD Primary [...] time each day. Mon,sat,Saturday per pulm Active doxycycline (VIBRAMYCIN) 100 mg capsuleIndicat ions:Celluliti [...] iron, magnesium, selenium, zinc). 20 each 5 07/26/19 25 Active predniSONE (DELTASONE) 10 mg tablet TAKE 4 TABS DAILY FOR 3 DAYS. 3TABS DAILY FOR 3 DAYS 2TABS DAILY FOR 3 DAYS 1TAB DAILY FOR 3 DAYS 30 tablet 5 Active doxycycline (VIBRAMYCIN) 100 mg capsuleIndicat ions:Celluliti [...] iron, magnesium, selenium, zinc). 20 each 5 07/15/19 25 Discontinu ed(Reorder ) levoFLOXacin (LEVAQUIN) 500 mg tablet Take 1 tablet (500 mg total) by mouth 1 (one) time each day for 10 days. 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 Nava. Grade 1 diastolic dysfunction clinically euvolemic and well compensated Diastolic dysfunction, left ventricle 06/30/2021 Overview (11/07/2023): 06/30/2021 Dr. Nava [facility]. No clinical signs central venous congestion. Medical therapy and pulmonary optimization with increased physical activity and breathing exercises recommended. Vascular disease 06/29/2021 DEREK and COPD overlap syndrome ([facility] V24, [facility] V28) 03/24/2021 Atelectasis, left 12/12/2018 Chronically elevated hemidiaphragm 12/12/2018 COPD (chronic obstructive pu lmonary disease) ([facility] V24, [facility] V28) 12/12/2018 Overview (11/07/2023): Moderately severe Vitamin D deficiency 12/12/2018 Paroxysmal atrial fibrillation ([facility] V24, [facility] V28) 12/11/2018 Overview (11/07/2023): On warfarin. Cardioversion 02/2018 Severe obesity (BMI 35.0-39. 9) with comorbidity ([facility] V24, [facility] V28) 08/08/2016 Adrenal adenoma 04/10/2016 Aortic valve [...] nl Hypercholesterolemia 09/22/2010 Hypertension 09/22/2010 Pulmonary embolism (CMS/HCC V24, CMS/HCC V28) Overview (11/07/2023): DVT right leg 1989, PE and DVT recurrent 02/1990, rajat filter placed. Anticoagulation- warfarin Encounters Date Type Department Care Team Description 06/30/2024 Telephone Adult Medicine [place] [address] [place] [address] Evelyn Valdez MD Results 06/22/2024 2:15 PM EDT - 06/22/2024 11:59 PM EDT Hospital Encounter CT Scan - [facility] [address] [place] [phone] scan, lung Discharge Disposition: Home or Self Care 06/22/2024 2:15 PM EDT - 06/22/2024 11:59 PM EDT Hospital Encounter CT Scan - [facility] [address] [place] [address] Discharge Disposition: Home or Self Care 06/15/2024 7:38 AM EDT - 06/15/2024 11:59 PM EDT Hospital Encounter [facility] [address] [place] [id number] Dysphagia, unspecified type Discharge Disposition: Home or Self Care 06/12/2024 Telephone Adult Medicine [facility] [address] [place] [address] Evelyn Valdez MD Medication Problem (Med question); Wheezing; Pneumonia 06/09/2024 2:39 PM EDT - 06/09/2024 11:59 PM EDT Hospital Encounter Xray - [place] [address] [place] [address] Acute cough Discharge Disposition: Home or Self Care 06/09/2024 2:30 PM EDT Office Visit Adult Medicine [facility] [address] [place] [address] Kelsea Martinez MD Acute cough (Primary Dx) 06/09/2024 Telephone Adult Medicine [facility] [address] [place] [address] Evelyn Valdez MD Fever 05/12/2024 1:15 PM EDT Office Visit Orthopedic Surgery [facility] [address] [place] [phone] Donny Hughes DPM Arthritis of both ankles (Primary Dx); Dermatophytosis of nail; Peripheral venous insufficiency 05/05/2024 4:30 PM EDT Office Visit Endocrinology - [facility] [address] [place], [place] [phone] Garo Florez MD Adenoma of left adrenal gland 04/15/2024 3:52 PM EST - 04/15/2024 11:59 PM EST Hospital Encounter Radiology Department - [facility] [address] [place], [place] [phone] Deep vein thrombosis (DVT) of distal vein of right lower extremity, unspecified chronicity ([facility] V24, [facility] V28) Discharge Disposition: Home or Self Care from [...] History Medical History Date Comments Atrial flutter ([facility] V24, [facility] V28) 12/11/2018 DX:Atrial flutter ([facility]); COM MENT: On warfarin Adrenal adenoma 04/10/2016 [...] hemidiaphragm COPD (chronic obstructive pu lmonary disease) ([facility] V24, [facility] V28) 12/12/2018 DX:COPD (chronic o bstructive pulmonary disease) ([facility]); COMMENT: Moderately severe Diverticulosis 09/22/2010 DX:Diverticulosi s; [...] Care Team (Late st Contact Info) Description 07/16/2024 2:15 PM EDT Office Visit Adult Medicine [facility] [address] [place] [address] Megan Morgan PA [address] [place], [place] 08/11/2024 1:45 PM EDT Office Visit Adult Medicine [facility] [address] [place] [phone] Leonardo Swenson PA [address] [place], [place] 08/18/2024 1:00 PM EDT Office Visit Orthopedic Surgery - [place] [address] [phone] Donny Hughes, DPM [address] [address] Health Maintenance Due Date Last Done Comments [...] V24, CMS/HCC V28) LIPID PANEL Routine 03/30/2020 HEPATITIS C SCREENING [...] nodule raise concern for malignancy. POS - [id number] -------- FINAL REPORT -------- Dictated By: Lizett Sanchez Dictated Date: 06/23/2024 13:24 ET Assigned Physician: Lizett Sanchez Reviewed and Electronically Signed By: Lizett Sanchez Signed Date: 06/23/2024 14:57 ET Workstation ID: [id number] Transcribed By: Self Edit Transcribed Date: 06/23/2024 [...] the nodule raise concern formalignancy. POS - [id number] -------- FINAL REPORT -------- Dictated By: Lizett Sanchez Dictated Date: 06/23/2024 13:24 ET Assigned Physician: Lizett Sanchez Reviewed and Electronically Signed By: Lizett Sanchez Signed Date: 06/23/2024 14:57 ET Workstation ID: [id number] Transcribed By: Self Edit Transcribed Date: 06/23/2024 [...] for comments on abdominal findings. POS - [id number] -------- FINAL REPORT -------- Dictated By: Lizett Sanchez Dictated Date: 06/23/2024 13:04 ET Assigned Physician: Lizett Sanchez Reviewed and Electronically Signed By: Lizett Sanchez Signed Date: 06/23/2024 15:00 ET Workstation ID: [id number] Transcribed By: Self Edit Transcribed Date: 06/23/2024 [...] day forcomments on abdominal findings. POS - [id number] -------- FINAL REPORT -------- Dictated By: Lizett Sanchez Dictated Date: 06/23/2024 13:04 ET Assigned Physician: Lizett Sanchez Reviewed and Electronically Signed By: Lizett Sanchez Signed Date: 06/23/2024 15:00 ET Workstation ID: [id number] Transcribed By: Self Edit Transcribed Date: 06/23/2024 [...] Signed Date: 06/15/2024 11:47 ET Workstation ID: [id number] Transcribed By: Self Edit Transcribed Date: 06/15/2024 11:43 ET Resident/PA/SUPERVISOR PIPE JOINTS: No Cesar Narrative 06/15/2024 11:47 AM EDT FINDINGS: Double contrast esophagram performed. Exam was limited due to patient inability to lay flat. COMPARISON: 2 view chest x-ray October 22, 2017 was reviewed. No prior esophagram imaging. HISTORY: Patient is a 78-year-old male with history of dysphagia, aspiration, cough. Unclaimed Property Officer radiographs: 1 view chest radiograph demonstrates stable [...] 78-year-old male with history of dysphagia,aspiration, cough. Unclaimed Property Officer radiographs: 1 view chest radiograph demonstrates stable [...] Signed Date: 06/15/2024 11:47 ET Workstation ID: [id number] Transcribed By: Self Edit Transcribed Date: 06/15/2024 11:43 ET Resident/PA/SUPERVISOR PIPE JOINTS: No Cesar us Evelyn Valdez MD IMG FLUOROSCOPY DE OCEDURES Final Result * XR Chest 2 Views (06/09/2024 2:46 PM EDT) Anatomical Region Laterality Modality Body Radiographic Julienne ging 06/09/2024 5:09 PM EDT Impressions 06/09/2024 5:24 PM EDT Findings concerning for right lower lobe pneumonia. ??Follow-up recommended to ensure resolution. POS - [id number] -------- FINAL REPORT -------- Dictated By: Lizett Sanchez Dictated Date: 06/09/2024 17:09 ET Assigned Physician: Lizett Sanchez Reviewed and Electronically Signed By: Lizett Sanchez Signed Date: 06/09/2024 17:24 ET Workstation ID: [id number] Transcribed By: Self Edit Transcribed Date: 06/09/2024 [...] pneumonia. Follow-up recommendedto ensure resolution. POS - [id number] -------- FINAL REPORT -------- Dictated By: Laura, Lizett Dictated Date: 06/09/2024 17:09 ET Assigned Physician: Lizett Sanchez Reviewed and Electronically Signed By: Lizett Sanchez Signed Date: 06/09/2024 17:24 ET Workstation ID: [id number] Transcribed By: Self Edit Transcribed Date: 06/09/2024 17:09 ET Kelsea Martinez MD IMG XR PROCEDURES Isela l Result * Creatinine (05/22/2024 2:11 PM EDT) Creatinine 0.84 0.70 - 1.30 mg/dL LAB CHEMISTRY METHOD 05/22/2024 4:35 PM EDT [facility] eGFR 90 >=60 mL/min/1. 73m2 LAB CHEMISTRY METHOD 05/22/2024 4:35 PM EDT [facility] Comment:Calculation based on the??Chronic Kidney Disease Epidemiology Collaboration (CKD-EPI) equation refit??without adjustment for race. Blood Venous blood specimen / Unknown Venipuncture / Unknown 05/22/2024 2:11 PM EDT 05/22/2024 2:11 PM EDT Garo Florez MD LAB BLOOD ORDERABLES Final Resul t Performing Organization Address City/[facility]/ZIP Co de Phone Number [facility] [address] [place] [address], [place] [phone] * BUN (05/22/2024 2:11 PM EDT) BUN 22 5 - 25 mg/dL LAB CHEMISTRY METHOD 05/22/2024 4:35 PM EDT [facility] Blood Venous blood specimen / Unknown Venipuncture / Unknown 05/22/2024 2:11 PM EDT 05/22/2024 2:11 PM EDT Garo Florez MD LAB BLOOD ORDERABLES Final Resul t [facility] [address] [place] [address], * Vascular US duplex lower extremity venous [...] Signed Date: 04/15/2024 16:45 ET Workstation ID: [id number] Transcribed By: Self Edit Transcribed Date: 04/15/2024 [...] Signed Date: 04/15/2024 16:45 ET Workstation ID: [id number] Transcribed By: Self Edit Transcribed Date: 04/15/2024 16:41 ET Result [facility] Evelyn Valdez MD CV VASCULAR PROCED URES Final Result * Lipid panel (03/30/2020) Pathologist [facility] LDL/HDL Ratio 3 0 - 4 Triglycerides 114 0 - 150 mg/dL Cholesterol 132 0 - 200 mg/dL HDL 43 >=40 mg/dL LDL Cholesterol 67 0 - 100 mg/dL Blood Venous blood specimen / Unknown Result [facility] Historical Provider LAB BLOOD ORDERABLES Isela l Result * Hepatitis C Screening (06/19/2012) Pathologist [facility] Hepatitis C Screening abstracted Historical Provider HEALTH MAINTENANCE Final Result from Last 3 Months or Most Recently Relevant to Health Maintenance Insurance * Guarantor: Leanne Jaramillo Account Type Relation to Patient Date of Phone Billing Address Personal/Family Self 1945 [phone] ([phone] [place] [address] [employer] MEDICARE Care Teams [employer] Science Tutor Relationship Specialty Start Date End Date Evelyn Valdez MD [address] [place] [phone] PCP - General Internal Medicine 12/09/18
[2024-07-15 13:33] LABS: Prothrombin Time Whole Bld POC 31.7 sec (11.1-13.5); ~PT, ~INR - Anti Coag Clinic 2.6 (0.9-1.1)
--- NOTE | 2024-07-15 13:38 | MHC.OFFVISCO ---
Intake Intake Visit Reasons: Anticoagulation Allergies albuterol Adverse Reaction (Intermediate, Verified 07/15/24 13:28) Palpitations amoxicillin [From Augmentin] Adverse Reaction (Intermediate, Verified 07/15/24 13:28) Nausea and Vomiting, dizziness clavulanic acid [From Augmentin] Adverse Reaction (Intermediate, Verified 07/15/24 13:28) Nausea and Vomiting, dizziness Medication List - Last Reconciled 07/15/24 by Whitney Clark RN acetaminophen 1,000 mg PO Q6H PRN acetazolamide 250 mg PO DAILY atorvastatin 20 mg PO DAILY azithromycin 250 mg PO 3XW diltiazem HCl CD 120 mg PO DAILY docusate sodium 200 mg PO DAILY flecainide 100 mg PO Q12H fluticasone propion-salmeterol 250-50 mcg/dose (Wixela Inhub) 1 inh inhalation Q12H 30 days furosemide 80 mg (2 x 40 mg) PO DAILY levalbuterol HCl 1.25 mg (0.5 mL) inhalation Q4H levalbuterol tartrate 45 mcg/actuation 2 puffs inhalation Q4-6H PRN 90 days multivitamin 1 tab PO DAILY potassium chloride ER 10 mEq PO DAILY sennosides (senna) 25.8 mg PO BEDTIME warfarin See Protocol 7.5 mg orally 7.5 X 4 DAYS/ 5MG X 3 DAYS; Nursing Note NO CP,SOB,DIET/MED CHANGES,FALLS OR SX OF BLEEDING. CONTINUE PRESENT DOSE AND FOLLOW-UP IN 4 WEEKS. GOOD UNDERSTANDING OF DOSING INSTR. 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
== END 2024-07-15 13:41 | disposition home or self-care (01) ==
LOC: HO.ACS 13:12
PROVIDERS: PCP Internal Medicine; Visit Provider Internal Medicine Medical Oncology
DX: Z79.01 Long term (current) use of anticoagulants (principal)

== ENCOUNTER → 2024-07-15 13:12 | Outpatient (BNVA) | payer MEDICARE, SELFPAY | PROVIDERS: PCP Internal Medicine; Visit Provider Internal Medicine Medical Oncology | DX: I48.19 Other persistent atrial fibrillation (principal); Z86.718 Personal history of other venous thrombosis and embolism; Z79.01 Long term (current) use of anticoagulants; Z51.81 Encounter for therapeutic drug level monitoring | CPT/HCPCS: 85610; 99211 ==

== ENCOUNTER 2024-07-23 13:25 | Outpatient (AMB) | payer MEDICARE, SELFPAY ==
[2024-07-23 13:45] VITALS: BP 118/62; PULSE 68; BMI 38.7
--- NOTE | 2024-07-23 13:45 | A.OFFVIS_ITS ---
Vital Signs 07/23/24 13:45 Height 5 ft 7 in Weight 247 lb 5.738 oz BMI 38.7 BP 118/62 Blood Pressure Location Lt brachial Position Sitting Pulse 68 Pulse Source Monitor Intake Visit Reasons: pt has pneumonia r/s echo / f/up Switch Tender Required: No Allergies albuterol Adverse Reaction (Intermediate, Verified 07/23/24 13:48) Palpitations amoxicillin [From Augmentin] Adverse Reaction (Intermediate, Verified 07/23/24 13:48) Nausea and Vomiting, dizziness clavulanic acid [From Augmentin] Adverse Reaction (Intermediate, Verified 07/23/24 13:48) Nausea and Vomiting, dizziness Medication List - Last Reconciled 07/23/24 by BRENDA Reynoso acetaminophen 1,000 mg PO Q6H PRN acetazolamide 250 mg PO DAILY atorvastatin 20 mg PO DAILY azithromycin 250 mg PO 3XW diltiazem HCl CD 120 mg PO DAILY docusate sodium 200 mg PO DAILY flecainide 100 mg PO Q12H fluticasone propion-salmeterol 250-50 mcg/dose (Wixela Inhub) 1 inh inhalation Q12H 30 days furosemide 80 mg (2 x 40 mg) PO DAILY levalbuterol HCl 1.25 mg (0.5 mL) inhalation Q4H levalbuterol tartrate 45 mcg/actuation 2 puffs inhalation Q4-6H PRN 90 days multivitamin 1 tab PO DAILY potassium chloride ER 10 mEq PO DAILY sennosides (senna) 25.8 mg PO BEDTIME warfarin See Protocol 7.5 mg orally 7.5 X 4 DAYS/ 5MG X 3 DAYS; HPI HPI pt has pneumonia r/s echo / f/up: Details: Jay is a 78-year-old male with past medical history of obesity, COPD, heart failure with preserved EF, mitral regurgitation, dilated ascending aorta, paroxysmal atrial flutter who presents for follow-up. Today he reports that he has been noticing some shortness of breath and a nonproductive congested sounding cough. He wears his oxygen PRN and wears CPAP at night. He sleeps with 2 pillows which is his norm. He has some mild swelling in his left lower leg and chronic swelling which is unchanged in his right lower leg. No chest discomfort at rest or with activity. No heart palpitations, lightheadedness, presyncope, syncope. No bleeding issues with Coumadin. Taking meds as directed. He tells me he is taking Lasix 80 mg in the a.m. and 40 mg in the p.m.. His next pulmonology follow-up is in September. [facility] Medical History CHF (congestive heart failure) Hypoventilation Restrictive airway disease (HFpEF) heart failure with preserved ejection fraction CHF exacerbation Cough Paroxysmal atrial fibrillation Lymphedema of both lower extremities DEREK on CPAP Obesity (BMI 35.0-39.9 without comorbidity) COPD (chronic obstructive pulmonary disease) Varicose veins of right lower extremity with inflammation Surgical History History of appendectomy Family History Father No problems noted. Mother No problems noted. Sister No problems noted. Sister No problems noted. Son No problems noted. Daughter No problems noted. Social History Household Members: Family Housing: House Are you a primary complex care nurse practitioner to a significant other at home: No Do you presently have visiting nurse or other home services: No Alcohol intake: current Alcohol intake frequency: holidays/special occasions only Alcohol type: beer Comment: PT USES CALL LIGHT APPROPRIATELY Patient Tobacco Use Status: Former Tobacco user Advance Directives Date on File: 03/05/24 service: Yes Current occupational status: retired Review of Systems Const All systems reviewed & are unremarkable except as noted in HPI and below ENT Denies dizziness Card Denies chest pain, Denies chest pain at rest, Denies chest pain with activity, Denies rapid heart rate, Denies pedal edema, Denies edema, Denies leg edema, Denies lightheadedness, Denies palpitations, Reports dyspnea, Reports dyspnea on exertion and Denies orthopnea Resp Reports chest congestion, Reports cough, Reports dyspnea and Reports dyspnea on exertion GI Denies hematochezia and Denies change in stool character Musc Details: chronic right leg swelling, left leg soft swelling, bilateral lower legs with venous stasis changes - R>L Denies abnormal gait, Denies limited range of motion, Denies muscle cramps, Denies muscle weakness, Denies numbness, Denies radiating pain into limb, Denies stiffness and Denies tingling Neuro Denies abnormal gait, Denies dizziness, Denies numbness and Denies tingling Endo Denies palpitations Physical Exam Vital Signs: Last Vital Signs Pulse 68 07/23/24 13:45 BP 118/62 07/23/24 13:45 BMI result Body Mass Index 38.7 Const General: cooperative, healthy appearing, comfortable and no acute distress Orientation/consciousness: patient oriented x3 Neck Neck: Yes normal visual inspection Resp Effort & Inspection: normal respiratory effort Auscultation: no rales and no wheezes Cardio Rate: regular rate Rhythm: regular rhythm Heart sounds: S1 normal heart sound present, S2 normal heart sound present, no gallops, no murmurs and no rubs Neuro General: patient oriented x3 Extrem Other: soft swelling left lower leg, more firm edema right lower leg, skin discoloration, venous stasis - hx DVT on right Psych Appearance: grossly normal Mental Status: mental status grossly normal Speech and movement: Normal speech and movement present Office Procedures EKG Details: Today, read by me, sinus rhythm with first-degree AV block, right bundle branch block, rate 68, QTC 476 millisecond [id number], Complete Assessment & Plan Assessment & Plan (1) SOB (shortness of breath) on exertion: Code(s): R06.02 - Shortness of breath Category: Medical Plan: Reports of chronic shortness of breath with exertion which is likely multifactorial with his COPD, chronic respiratory failure with hypoxia. He currently has a cough and congestion with rhonchi noted on examination. He does not appear grossly fluid overloaded what he does have history of heart failure with preserved EF. Will check labs today including CBC, BMP and BNP. Will send him for chest x-ray for lung evaluation. He is agreeable to this plan. (2) Cough: Code(s): R05.9 - Cough, unspecified Category: Medical Plan: He currently reports increased cough, more than usual. He was treated for pneumonia in February and believes he had full resolution. No fevers reported. Using his oxygen 2 L in the daytime more than usual. Lab and chest x-ray evaluation as above. (3) (HFpEF) heart failure with preserved ejection fraction: Code(s): I50.30 - Unspecified diastolic (congestive) heart failure Category: Medical Plan: History of heart failure with preserved EF. Recent echocardiogram showing EF 55-60%, basal inferior akinetic moderate mitral regurgitation, significantly elevated right atrial pressures and mild pulmonary hypertension. Testing as above and treatment plan to be determined. (4) Paroxysmal atrial fibrillation: Code(s): I48.0 - Paroxysmal atrial fibrillation Category: Medical Plan: History of paroxysmal atrial fibrillation which is currently suppressed with flecainide for rhythm control and diltiazem for rate control. He is on Coumadin for anticoagulation with INR goal 2-3. He follows with the [facility]. Pulse is regular on examination today an EKG confirms sinus rhythm with first-degree AV block, right bundle branch block rate 68. On echo his left atrium is moderately dilated right atrium is severely dilated. Continue current treatment plan. (5) Current use of anticoagulant therapy: Code(s): Z79.01 - [facility] (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 Plan: As above (6) COPD (chronic obstructive pulmonary disease): Comment: Code(s): J44.9 - Chronic obstructive pulmonary disease, unspecified Category: Medical Qualifiers: COPD type: COPD with acute exacerbation Qualified Code(s): J44.1 - Chronic obstructive pulmonary disease with (acute) exacerbation Plan: Follows with Dr. Clarke for pulmonology Plan Time spent on chart review, documentation, interview and assessment Orders: Orders Basic Metabolic Panel Today I50.30 - Unspecified diastolic (congestive) heart failure XR chest 2V Today I50.30 - Unspecified diastolic (congestive) heart failure Complete Blood Count Auto Diff Today I50.30 - Unspecified diastolic (congestive) heart failure B Type Natriuretic Peptide Today I50.30 - Unspecified diastolic (congestive) heart failure Coding Level of Care Code Est Pt Level 4 (12099) Complex EM visit Add On G2211 Diagnoses SOB (shortness of breath) on exertion R06.02 Cough R05.9 (HFpEF) heart failure with preserved ejection fraction I50.30 Paroxysmal atrial fibrillation I48.0 Current use of anticoagulant therapy Z79.01 COPD (chronic obstructive pulmonary disease) J44.1 COPD type: COPD with acute exacerbation CPT Codes EKG - CPT: 44270-[id number], Complete ([id number]) Time Spent (min) 36
--- OUTSIDE RECORDS SUMMARY | 2024-07-23 15:39 | XMS_ITS | Clinical Summary ---
Author Organization [facility] [address] [facility] lding Address [address] [place] [address] Phone Care Team Providers Care Rn Social Work Name Role Phone Evelyn Valdez MD Primary Care Prov ider Allergies Active Allergy Reactions Criticality Noted Date Comments Amoxicillin-Pot Clavulanate 01/09/20 23 Medications furosemide (LASIX) 40 mg tablet Take 1 tablet (40 mg total) by mouth 2 (two) times a day. 2 pills am 1 pill QHS 07/05/19 24 Active flecainide (TAMBOCOR) 50 mg tablet Take 2 tablets (100 mg total) by mouth 2 (two) times a day. 07/05/19 24 Active warfarin (COUMADIN) 5 mg tablet Saturday and Wednesdays 7.5mg, all other days takes 5mg 07/02/19 24 Active docusate sodium (COLACE) 100 mg capsule Take 100 mg by mouth. 11/03/19 17 Active fluticasone propion-salmet Penny (Wixela Inhub) 500-50 mcg/dose diskus inhaler Inhale 1 Puff into the lungs 2 Times Daily. 08/03/19 23 Active levalbuterol (XOPENEX) 1.25 mg/3 mL nebulizer solution INHALE 1.25 MG (0.5 ML) EVERY 4 HOURS WHILE AWAKE FOR COPD FOR 30 DAYS 03/16/19 23 Active senna (SENOKOT) 8.6 mg tablet Take 3 Tabs by mouth at bedtime for 360 days. 02/06/20 19 Active MULTIVITAMIN ORAL Take 1 tablet by mouth 1 (one) time each day. 02/06/20 19 Active dilTIAZem CD (CARDIZEM CD) 120 mg 24 hr capsule TAKE 1 CAPSULE BY MOUTH DAILY 100 capsule 1 01/29/20 24 Active potassium chloride (KLOR-CON M10) 10 mEq CR tablet TAKE 1 TABLET BY MOUTH DAILY 90 tablet 3 02/06/20 24 Active acetaZOLAMIDE (DIAMOX) 250 mg tablet 03/16/19 25 Active azithromycin (ZITHROMAX) 250 mg tablet Take 1 tablet (250 mg total) by mouth 1 (one) time each day. Mon,wed, y per pulm Active doxycycline (VIBRAMYCIN) 100 mg capsuleIndicat ions:Celluliti s of right lower extremity Take 1 capsule (100 mg total) by mouth 2 (two) times a day for 10 days. Take with at least 8 ounces (large glass) of water, do not lie down for 30 minutes after. Administer 2 hours before or after multivitamins , antacids, or other products containing polyvalent cations (i.e., calcium, iron, magnesium, selenium, zinc). 20 each 07/16/19 25 025 Active predniSONE (DELTASONE) 10 mg tablet TAKE 4 TABS DAILY FOR 3 DAYS. 3TABS DAILY FOR 3 DAYS 2TABS DAILY FOR 3 DAYS 1TAB DAILY FOR 3 DAYS 30 tablet 07/16/19 25 Active cephalexin (KEFLEX) 500 mg capsule Take 1 capsule (500 mg total) by mouth 3 (three) times a day for 10 days. 30 each 07/17/19 25 025 Active atorvastatin (LIPITOR) 20 mg tablet TAKE 1 TABLET BY MOUTH ONCE DAILY 80 tablet 3 07/21/19 25 Active atorvastatin (LIPITOR) 20 mg tablet Take 1 tablet (20 mg total) by mouth 1 (one) time each day. 90 each 1 02/18/19 25 025 Discontinued doxycycline (VIBRAMYCIN) 100 mg capsuleIndicat ions:Celluliti s of right lower extremity Take 1 capsule (100 mg total) by mouth 2 (two) times a day for 10 days. Take with at least 8 ounces (large glass) of water, do not lie down for 30 minutes after. Administer 2 hours before or after multivitamins , antacids, or other products containing polyvalent cations (i.e., calcium, iron, magnesium, selenium, zinc). 20 each 04/14/19 25 025 Discontinued(Re order) Active Problems Problem Noted Date Diagnosed Date Chronic deep vein thrombosis (DVT) of lower extremity ([facility] V24, [facility] V28) 11/07/2023 Overview (11/07/2023): Recurrent Diastolic heart failure ([facility] V24, [facility] V2 8) 07/06/2021 Overview (11/07/2023): Dr. Nava. Grade 1 diastolic dysfunction clinically euvolemic and well compensated Diastolic dysfunction, left ventricle 06/30/2021 Overview (11/07/2023): 06/30/2021 Dr. Nava [facility] cardiology. No clinical signs central venous congestion. Medical therapy and pulmonary optimization with increased physical activity and breathing exercises recommended. Vascular disease 06/29/2021 DEREK and COPD overlap syndrome ([facility] V24, [facility] V28) 03/24/2021 Atelectasis, left 12/12/2018 Chronically elevated hemidiaphragm 12/12/2018 COPD (chronic obstructive pu lmonary disease) ([facility] V24, [facility] V28) 12/12/2018 Overview (11/07/2023): Moderately severe Vitamin D deficiency 12/12/2018 Paroxysmal atrial fibrillation ([facility] V24, [facility] V28) 12/11/2018 Overview (11/07/2023): On warfarin. Cardioversion 02/2018 Severe obesity (BMI 35.0-39. 9) with comorbidity ([facility] V24, [facility] V28) 08/08/2016 Adrenal adenoma 04/10/2016 Aortic valve stenosis with insufficiency 012 Overview (11/07/2023): Echo 4/13/12 mild AMS, 2+ AI, mild rheumatic changes [...] Encounters Date Type Department Care Team Description 07/17/2024 Telephone Adult Medicine - [address] [phone] Evelyn Valdez MD arm pain follow up 07/16/2024 2:21 PM EDT - 07/16/2024 11:59 PM EDT Hospital Encounter Ultrasound - [address] [phone] Elbow swelling, right; Hand swelling Discharge Disposition: Home or Self Care 07/16/2024 2:15 PM EDT Office Visit Adult Medicine - [address] [phone] Megan Morgan PA Elbow swelling, right (Primary Dx); Olecranon bursitis of right elbow; Cellulitis of right arm; Hand swelling; Chronic deep vein thrombosis (DVT) of other vein of lower extremity, unspecified laterality (CMS/HCC V24, CMS/HCC V28); Chronic diastolic heart failure (CMS/HCC V24, CMS/HCC V28); Ischemic cardiomyopathy; Chronic pulmonary embolism, unspecified pulmonary embolism type, unspecified whether acute cor pulmonale present (CMS/HCC V24, CMS/HCC V28); Paroxysmal atrial fibrillation (CMS/HCC V24, CMS/HCC V28) 06/30/2024 Telephone Adult Medicine - [address] [phone] Evelyn Valdez MD Results 06/22/2024 2:15 PM EDT - 06/22/2024 11:59 PM EDT Hospital Encounter CT Scan - [address] [phone] scan, lung Discharge Disposition: Home or Self Care 06/22/2024 2:15 PM EDT - 06/22/2024 11:59 PM EDT Hospital Encounter CT Scan - [address] [phone] Discharge Disposition: Home or Self Care 06/15/2024 7:38 AM EDT - 06/15/2024 11:59 PM EDT Hospital Encounter [facility] Xray [address] [place] [phone] Dysphagia, unspecified type Discharge Disposition: Home or Self Care 06/12/2024 Telephone Adult [facility] [address] [place] [phone] Evelyn Valdez MD Medication Problem (Med question); Wheezing; Pneumonia 06/09/2024 2:39 PM EDT - 06/09/2024 11:59 PM EDT Hospital Encounter Xray - [place] [address] [place] [address] Acute cough Discharge Disposition: Home or Self Care 06/09/2024 2:30 PM EDT Office Visit Adult [address] [phone] Kelsea Martinez MD Acute cough (Primary Dx) 06/09/2024 Telephone Adult [address] [phone] Evelyn Valdez MD Fever 05/12/2024 1:15 PM EDT Office Visit Orthopedic Surgery [address] [phone] Donny Hughes, DPM Arthritis of both ankles (Primary Dx); Dermatophytosis of nail; Peripheral venous insufficiency 05/05/2024 4:30 PM EDT Office Visit Endocrinology [address] [phone] Garo Florez MD Adenoma of left adrenal gland from Last 3 Months Immunizations Name Administration [...] COMMENT: Non obstructive CAD-mild disease APPENDECTOMY PROCEDURE: [place] APPENDECTOMY OTHER SURGICAL HISTORY 09/28/2021 Right PROCEDURE: [place] ENDOVEN ABLTJ INCMPTNT VEIN XTR LASER 1ST [...] (chronic obstructive pu lmonary disease) (CMS/HCC V24, [facility] V28) 12/12/2018 DX:COPD (chronic o bstructive pulmonary disease) ([facility]); COMMENT: Moderately severe Diverticulosis 09/22/2010 DX:Diverticulosi [...] Metabolic syndrome 11/03/2010 DX:Metabolic syndrome Pulmonary embolism ([facility] V24, [facility] V28) 09/22/2010 DX:Pulmonary embolism (HCC); COMMENT: DVT [...] Severe obesity (BMI 35.0-39. 9) with comorbidity ([facility] V24, [facility] V28) 08/08/2016 DX:Severe obesi ty (BMI 35.0- [...] 03/14/1989 Smokeless Tobacco: Former Tobacco Cessation:Counseling Given: No Alcohol Use Standard Drinks/Week Comments Yes 0 [...] care for your loved ones. For example, salesperson children's shoes or elderly care for an older adult? [...] Sign Reading Time Taken Comments Blood Pressure 122/70 07/16/2024 1:54 PM EDT Pulse 80 07/16/2024 1:54 PM EDT Temperature 36.6 ??C (97.9 ??F) 07/16/2024 1:54 PM ED T Respiratory Rate 15 06/09/2024 2:05 PM EDT Oxygen Saturation 93% 05/05/2024 4:28 PM EDT Inhaled Oxygen Concentration - - Weight 112 kg (247 lb) 07/16/2024 1:54 PM EDT Height 170 cm (5' 6.93 ) 06/09/2024 2:05 PM EDT Body Mass Index 38.77 06/09/2024 2:05 PM EDT Plan of Treatment Upcoming Encounters Date Type Department Care Team (Late st Contact Info) Description 08/11/2024 1:45 PM EDT Office Visit Adult Medicine - [place] [address] [place] [address] Leonardo Swenson PA [address] [place] [address] 08/18/2024 1:00 PM EDT Office Visit Orthopedic Surgery - [place] [address] [phone] Donny Hughes, DPM [address] [phone] Health Maintenance Due Date Last Done Comments [...] Date/Time Associated Diagnosis Comments VAS US DUPLEX UPPER EXT VENOUS RIGHT Routine 07/16/2024 3:01 PM EDT Elbow swelling, right Hand swelling CT ABDOMEN WO AND W CONTRAST Routine [...] PM EDT Adenoma of left adrenal gland LIPID PANEL Routine 03/30/2020 HM HEPATITIS C SCREENING Routine 06/19/2012 from Last 3 Months or Most Recently Relevant to Health Maintenance Results * Vascular US duplex upper extremity venous right (07/16/2024 3:01 PM EDT) Anatomical Region Laterality Modality Vascular, Abdomen Radiographic I maging 07/16/2024 3:06 PM EDT Narrative 07/16/2024 3:13 PM EDT Venous ultrasound of the right upper extremity. History swelling. Visualized portion of the internal jugular vein, subclavian vein, axillary vein, cephalic vein, basilic and brachial veins revealed no evidence of DVT with good compressibility, duplex signal and color filling. Note was made of fluid collection around the olecranon process measuring 4 x 1.1 x 3.6 cm, probably representing olecranon bursitis. CONCLUSIONS: No evidence of DVT. Suggestion of olecranon bursitis. -------- FINAL REPORT -------- Dictated By: Subha Romero Dictated Date: 07/16/2024 15:06 ET Assigned Physician: Subha Romreo Reviewed and Electronically Signed By: Subha Romero Signed Date: 07/16/2024 15:13 ET Workstation ID: [id number] Transcribed By: Self Edit Transcribed Date: 07/16/2024 15:06 ET Procedure Note Subha Romero MD - 07/16/2024 Venous ultrasound of the right upper extremity. History swelling. Visualized portion of the internal jugular vein, subclavian vein, axillaryvein, cephalic vein, basilic and brachial veins revealed no evidence ofDVT with good compressibility, duplex signal and color filling. Note was made of fluid collection around the olecranon process measuring 4x 1.1 x 3.6 cm, probably representing olecranon bursitis. CONCLUSIONS: No evidence of DVT. Suggestion of olecranon bursitis. -------- FINAL REPORT -------- Dictated By: Subha Romero Dictated Date: 07/16/2024 15:06 ET Assigned Physician: Subha Romero Reviewed and Electronically Signed By: Subha Romero Signed Date: 07/16/2024 15:13 ET Workstation ID: [id number] Transcribed By: Self Edit Transcribed Date: 07/16/2024 15:06 ET us Megan WING CV VASCULAR PROCEDURES Fin al Result * CT Abdomen wo and w Contrast [...] nodule raise concern for malignancy. POS - [id number] -------- FINAL REPORT -------- Dictated By: Lizett Sanchez Dictated Date: 06/23/2024 13:24 ET Assigned Physician: Lizett Sanchez Reviewed and Electronically Signed By: Lizett Sanchez Signed Date: 06/23/2024 14:57 ET Workstation ID: [id number] Transcribed By: Self Edit Transcribed Date: 06/23/2024 [...] the nodule raise concern formalignancy. POS - [id number] -------- FINAL REPORT -------- Dictated By: Lizett Sanchez Dictated Date: 06/23/2024 13:24 ET Assigned Physician: Lizett Sanchez Reviewed and Electronically Signed By: Lizett Sanchez Signed Date: 06/23/2024 14:57 ET Workstation ID: [id number] Transcribed By: Self Edit Transcribed Date: 06/23/2024 [...] for comments on abdominal findings. POS - [id number] -------- FINAL REPORT -------- Dictated By: Lizett Sanchez Dictated Date: 06/23/2024 13:04 ET Assigned Physician: Lizett Sanchez Reviewed and Electronically Signed By: Lizett Sanchez Signed Date: 06/23/2024 15:00 ET Workstation ID: [id number] Transcribed By: Self Edit Transcribed Date: 06/23/2024 [...] day forcomments on abdominal findings. POS - [id number] -------- FINAL REPORT -------- Dictated By: Lizett Sanchez Dictated Date: 06/23/2024 13:04 ET Assigned Physician: Lizett Sanchez Reviewed and Electronically Signed By: Lizett Sanchez Signed Date: 06/23/2024 15:00 ET Workstation ID: [id number] Transcribed By: Self Edit Transcribed Date: 06/23/2024 [...] Signed Date: 06/15/2024 11:47 ET Workstation ID: [id number] Transcribed By: Self Edit Transcribed Date: 06/15/2024 11:43 ET Resident/PA/OVEN STRIPPER: No Cesar Narrative 06/15/2024 11:47 AM EDT FINDINGS: Double contrast esophagram performed. Exam was limited due to patient inability to lay flat. COMPARISON: 2 view chest x-ray October 22, 2017 was reviewed. No prior esophagram imaging. HISTORY: Patient is a 78-year-old male with history of dysphagia, aspiration, cough. Business Practices Officer radiographs: 1 view chest radiograph demonstrates [...] 78-year-old male with history of dysphagia,aspiration, cough. Business Practices Officer radiographs: 1 view chest radiograph demonstrates [...] Signed Date: 06/15/2024 11:47 ET Workstation ID: [id number] Transcribed By: Self Edit Transcribed Date: 06/15/2024 11:43 ET Resident/PA/OVEN STRIPPER: No Cesar us Evelyn Valdez MD IMG FLUOROSCOPY [place] OCEDURES Final Result * XR Chest 2 Views (06/09/2024 2:46 PM EDT) Anatomical Region Laterality Modality Body Radiographic Julienne ging 06/09/2024 5:09 PM EDT Impressions 06/09/2024 5:24 PM EDT Findings concerning for right lower lobe pneumonia. ??Follow-up recommended to ensure resolution. POS - [id number] -------- FINAL REPORT -------- Dictated By: Lizett Sanchez Dictated Date: 06/09/2024 17:09 ET Assigned Physician: Lizett Sanchez Reviewed and Electronically Signed By: Lizett Sanchez Signed Date: 06/09/2024 17:24 ET Workstation ID: [id number] Transcribed By: Self Edit Transcribed Date: 06/09/2024 [...] pneumonia. Follow-up recommendedto ensure resolution. POS - [id number] -------- FINAL REPORT -------- Dictated By: Lizett Sanchez Dictated Date: 06/09/2024 17:09 ET Assigned Physician: Lizett Sanchez Reviewed and Electronically Signed By: Lizett Sanchez Signed Date: 06/09/2024 17:24 ET Workstation ID: [id number] Transcribed By: Self Edit Transcribed Date: 06/09/2024 17:09 ET us Kelsea Martinez MD IMG XR PROCEDURES Isela l Result * Creatinine (05/22/2024 2:11 PM EDT) Creatinine 0.84 0.70 - 1.30 mg/dL LAB CHEMISTRY METHOD 05/22/2024 4:[address] [facility] eGFR 90 >=60 mL/min/1. 73m2 LAB CHEMISTRY METHOD 05/22/2024 4:[address] [facility] Comment:Calculation based on the??Chronic Kidney Disease Epidemiology Collaboration (CKD-EPI) equation refit??without adjustment for race. Blood Venous blood specimen / Unknown Venipuncture / Unknown 05/22/2024 2:11 PM EDT 05/22/2024 2:11 PM EDT us Garo Florez MD LAB BLOOD ORDERABLES Final Resul t [facility] [address] [place] [address], [place] [phone] * BUN (05/22/2024 2:11 PM EDT) [facility] BUN 22 5 - 25 mg/dL LAB CHEMISTRY METHOD 05/22/2024 4:[address] [facility] Blood Venous blood specimen / Unknown Venipuncture / Unknown 05/22/2024 2:11 PM EDT 05/22/2024 2:11 PM EDT Garo Florez MD LAB BLOOD ORDERABLES Final Resul t [facility] [address] [place] [address], * Lipid panel (03/30/2020) [facility] LDL/HDL Ratio 3 0 - 4 Triglycerides 114 0 - 150 mg/dL Cholesterol 132 0 - 200 mg/dL HDL 43 >=40 mg/dL LDL Cholesterol 67 0 - 100 mg/dL Blood Venous blood specimen / Unknown Richard Titus MD LAB BLOOD ORDERABLES Isela l Result * Hepatitis C Screening (06/19/2012) [facility] Hepatitis C Screening abstracted Richard Titus MD HEALTH MAINTENANCE Final Result from Last 3 Months or Most Recently Relevant to Health Maintenance Insurance * Guarantor: Leanne Jaramillo Account Type Relation to Patient Date of Phone Billing Address Personal/Family Self 1945 [phone] (Work) [phone] [place] [address] [place] [address] Care Teams Rn Social Work Relationship Specialty Start Date End Date Evelyn Valdez MD [address] [place] [id number] PCP - General Internal Medicine 12/09/18
== END 2024-07-23 14:26 | disposition home or self-care (01) ==
LOC: HO.HCS 13:25
PROVIDERS: PCP Internal Medicine; Visit Provider Nurse Practitioner Family
DX: R06.02 Shortness of breath (principal); R05.9 Cough, unspecified; I50.30 Unspecified diastolic (congestive) heart failure; I48.0 Paroxysmal atrial fibrillation; Z79.01 Long term (current) use of anticoagulants; J44.1 Chronic obstructive pulmonary disease with (acute) exacerbation
CPT/HCPCS: 93010; 99214; G2211

== ENCOUNTER 2024-07-23 13:25 | Outpatient (REF) | payer MEDICARE, SELFPAY ==
--- NOTE | ~2024-07-23 | XR_ITS ---
EXAMINATION: XR CHEST CLINICAL INFORMATION: I50.30 - Unspecified diastolic (congestive) heart failure COMPARISON: March 05, 2024. TECHNIQUE: 2 views of the chest were obtained. FINDINGS: Elevated left hemidiaphragm, unchanged. Prominence of the interstitial markings in the perihilar regions, right greater than the left side. No gross pneumothorax. Cardiomediastinal silhouette size is enlarged, unchanged. Sternal wires. Multilevel thoracic and upper lumbar spondylosis. XR/XR chest 2V IMPRESSION: Mild interstitial lung edema in the correct clinical settings. Cardiomegaly versus pericardial effusion. 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 Electronically signed by: Arnol Lane MD 07/23/2024 03:40 PM EDT
[2024-07-23 15:02] LABS: Basophils Percent Auto 0.4 % (0-2); Eosinophils Absolute Auto 0.1 X10*3/uL (0.0-0.4); Eosinophils Percent Auto 1.8 % (0-4); Hematocrit 41.7 % (42.0-52.0); Hemoglobin 12.9 g/dl (14.0-18.0); Imm Gran Abs Auto 0.01 X10*3/uL (0.00-0.03); Imm Gran Pct Auto 0.1 % (0.0-0.4); Lymphocytes Absolute Auto 1.2 X10*3/uL (1.2-4.9); Lymphocytes Percent Auto 17.3 % (20-40); MANUAL DIFF FLAG SCAN; Mean Corpuscular HGB Conc 30.9 g/dl (31.0-36.0); Mean Corpuscular Hemoglobin 28.5 pg (27.0-33.0); Mean Corpuscular Volume 92.1 fL (80.0-98.0); Mean Platelet Volume 9.5 fL (9.4-12.4); Monocytes Absolute Auto 1.5 X10*3/uL (0.1-1.2); Monocytes Percent Auto 21.7 % (2-11); Neutrophils Percent Auto 58.7 % (45-73); Platelet Count 164 X10*3/uL (160-400); Red Blood Count 4.53 X10*6/uL (4.60-5.80); SCAN SMEAR FLAG 1; White Blood Count 6.8 X10*3/uL (4.8-10.8)
[2024-07-23 15:23] LABS: Anion Gap 11 (12-20); Blood Urea Nitrogen 24 mg/dL (9-16); Calcium 9.3 mg/dL (8.4-10.2); Carbon Dioxide 32 mmol/L (22-29); Chloride 106 mmol/L (96-108); Estimated Glomerular Filt Rate > 60; Glucose Random 84 mg/dL (60-115); Potassium 4.1 mmol/L (3.3-5.1); Sodium 145 mmol/L (135-145)
[2024-07-23 15:36] LABS: SLIDE REVIEW VERIFIED
[2024-07-23 15:39] LABS: B Type Natriuretic Peptide 46 pg/mL (<100)
== END 2024-07-23 13:26 | disposition home or self-care (01) ==
LOC: HO.XRAY 13:25
PROVIDERS: PCP Internal Medicine; Visit Provider Nurse Practitioner Family
DX: I50.30 Unspecified diastolic (congestive) heart failure (principal)
CPT/HCPCS: 36415; 71046; 80048; 83880; 85025; 93005; 99212

== ENCOUNTER → 2024-07-23 14:47 | Outpatient (BNV) | payer MEDICARE, SELFPAY | PROVIDERS: PCP Internal Medicine; Visit Provider Radiology Diagnostic Radiology | DX: J84.89 Other specified interstitial pulmonary diseases (principal) | CPT/HCPCS: 71046 ==

== ENCOUNTER 2024-08-12 13:25 | Outpatient (AMB) | payer MEDICARE, SELFPAY ==
[2024-08-12 13:28] LABS: Prothrombin Time Whole Bld POC 25.4 sec (11.1-13.5); ~PT, ~INR - Anti Coag Clinic 2.1 (0.9-1.1)
--- NOTE | 2024-08-12 13:35 | MHC.OFFVISCO ---
Intake Intake Visit Reasons: Anticoagulation Allergies albuterol Adverse Reaction (Intermediate, Verified 08/12/24 13:28) Palpitations amoxicillin (From Augmentin) Adverse Reaction (Intermediate, Verified 08/12/24 13:28) Nausea and Vomiting, dizziness clavulanic acid (From Augmentin) Adverse Reaction (Intermediate, Verified 08/12/24 13:28) Nausea and Vomiting, dizziness Medication List - Last Reconciled 08/12/24 by Whitney Clark RN acetaminophen 1,000 mg PO Q6H PRN acetazolamide 250 mg PO DAILY atorvastatin 20 mg PO DAILY azithromycin 250 mg PO 3XW diltiazem HCl CD 120 mg PO DAILY docusate sodium 200 mg PO DAILY empagliflozin (Jardiance) 10 mg PO DAILY flecainide 100 mg PO Q12H fluticasone propion-salmeterol 250-50 mcg/dose 1 inh inhalation Q12H furosemide 80 mg (2 x 40 mg) PO DAILY levalbuterol HCl 1.25 mg (0.5 mL) inhalation Q4H levalbuterol tartrate 45 mcg/actuation 2 inhalations PO Q4-6H PRN multivitamin 1 tab PO DAILY potassium chloride ER 10 mEq PO DAILY sennosides (senna) 25.8 mg PO BEDTIME warfarin See Protocol 7.5 mg orally 7.5 X 4 DAYS/ 5MG X 3 DAYS; Nursing Note NO CP,SOB,DIET/MED CHANGES,FALLS OR SX OF BLEEDING. CONTINUE PRESENT DOSE AND FOLLOW-UP IN 4 WEEKS. GOOD UNDERSTANDING OF DOSING INSTR. 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
--- OUTSIDE RECORDS SUMMARY | 2024-08-12 14:00 | XMS_ITS | Data Portability ---
Author Organization [place] [facility] Address [address] [place] [id number] Assessment Encounter Date Assessment Date Assessment LastModified [...] abnormal oxygen saturation, and increased breathing effort 91 was contacted. Supplemental oxygen was administered until EMS arrived. Verbal and written report given to [facility]. Time On Scene with Patient: 01:05:55 - Emergent 911 transport: Patient is critically ill and required immediate transport by a 911/emergency vehicle due to critical illness requiring immediate intervention [id number] Not available 02/12/2022 09:40:35 Plan of Treatment Reminders Order Date Submit Date Provider Last Modified By Organization Details Last Modified Time Details Appointments None recorded. Lab rapid SARS CoV 2 Ag, QL IA, respiratory specimen 2021 022 stephen [email or web address] [facility], [address] [place] [address], [id number], 16:28:01 Referral None recorded. Procedures None recorded. Surgeries None recorded. Imaging None recorded. Medication Orders None recorded. Patient TargetsNo targets recorded. Patient Instructions Encounter Date Encounter Id Patient Instructions Last Modified By Organization Details Last Modified Time 02/06/2022 [id number] shortness of breath: care instructions [email or web address] [id number] Not available 02/06/2022 16:01:31 [facility]. We cannot always find the exact cause of your symptoms during your initial visit. Please follow up with your primary care provider or specialist within 2-3 days to be rechecked or seek medical attention if your symptoms do not go away or get worse. If you develop any new or worsening symptoms and need after hours care, please go to nearest ER and/or call 911. If you have additional concerns or develop a change in your condition between 8am-10pm, please call [facility] at [phone] to help navigate your care. [email or web address] [id number] Not available 02/07/2022 20:23:27 Reason for Referral None Reported. Results Created Date Observation Date Name Description Value Unit Range Abnormal Flag Note LastModifiedBy Organization Detail LastModifiedTime 02/07/20 22 02/06/2022 rapid SARS CoV 2 Ag, QL IA, respi rator y speci men Covid-19 (ref: neg) negati ve Not Available [facility] [address] [place], [address], 02/06/2022 16:02:13 02/07/20 22 02/06/2022 rapid SARS CoV 2 Ag, QL IA, respi rator y speci men Control Visual ized/V alid Not Available [facility] [address] [place], [address], 02/06/2022 16:02:13 02/07/20 22 02/06/2022 rapid SARS CoV 2 Ag, QL IA, respi rator y speci men Location [facility], [facility] Vivian keenan [facility], [address] [place] [address], [id number] Not Available [facility] [address] [place], [address], 02/06/2022 16:02:13 Result Notes None recorded. Medical Equipment None Reported. Allergies Allergen ID Allergen Name Allergen Category Reaction Reaction Severity Criticality Documentation Date Start Date Code Code System Note Provider Name and Address Organization Details Recorded Time 110617 Augmentin medicatio n Not available Not available Not available 02/06/2022 50509 2 RxNorm August JOSE Gu [address] [place], [address], [place] [facility] 15:54:26 Medications Name Sig Start Date Stop [...] Available Not Available Not Available amoxicillin 875 mg-booneu m clavulanate 125 mg tablet TAKE 1 [...] mm[Hg] August JOSE Gu [address] [place], [address], [place] [facility] 20:29:19 Social History None recorded. Functional Status None recorded. Mental Status None recorded. Family History Nothing Reported. Medical History Condition Response Coronary Artery Disease Y Parkinson's Disease N Depression N COPD Y Hypothyroidism N A-fib N Diabetes N CHF Y Cancer N Dementia N Stroke N Asthma N High Cholesterol Y Rheumatoid Arthritis N Pulmonary Embolism N Hypertension Y Osteoporosis N Kidney Disease N Past Encounters Encounter ID Performer Location Encounter Start Date Encounter Closed Date Diagnosis/Indication Diagnosis SNOMED-CT Code Diagnosis ICD10 Code Diagnosis Note [id number] August JOSE Gu [facility] [address] [place] [place] [address] 02/06/2022 15:51:42 02/13/2022 11:31:27 Dyspnea at rest 771569782 R06.00 Acute hypo xemic respiratory failure 475679911 J96.01 Health Concerns Section Related Observation LastModified by Organization Detai ls LastModified Time None Recorded Concern Status LastModified by Organization Details LastModified Time None Recorded Advance Directives Directive None Recorded Payers Insurance Date Sequence Insurance Name Policy Number Policy Contreras Covered Member ID Contreras Member ID Guarantor Name 02/06/2022 1 *SELF PAY* Jay Krishnamurthyers [id number] Jay Krishnamurthyers 02/13/2022 2 MEDICARE B-[place] Jay Janet [id number] Jay Janet 02/13/2022 1 MEDICARE B-[place] Jay Janet [id number] Jay Janet 02/13/2022 1 [facility] (MEDICARE REPLACEMENT/A DVANTAGE - PPO) [id number] Jay Janet [id number] Jay Janet 02/13/2022 1 [facility] (MEDICARE REPLACEMENT/A DVANTAGE - PPO) [id number] Jay Krishnamurthyers [id number] Jay Krishnamurthyers Notes Date Note Type Note Provider Name [...] November. Adrienne Gu NP [address], [place], [address], [place] [facility] 02/12/2022 09:40:47
--- OUTSIDE RECORDS SUMMARY | 2024-08-12 14:00 | XMS_ITS | Clinical Summary ---
Author Organization [facility] [address] [facility] lding Address [address] [place] [address] Phone Care Team Providers Care Senior Design Engineering Specialist Name Role Phone Evelyn Valdez MD Primary Care Prov ider Allergies Active Allergy Reactions Criticality Noted Date Comments Amoxicillin-Pot Clavulanate Dizziness 01/09/20 23 Medications furosemide (LASIX) 40 mg tablet Take 1 tablet (40 mg total) by mouth 2 (two) times a day. 2 pills am 1 pill QHS 07/05/19 24 Active flecainide (TAMBOCOR) 50 mg tablet Take 2 tablets (100 mg total) by mouth 2 (two) times a day. 07/05/19 24 Active docusate sodium (COLACE) 100 mg capsule Take 100 mg by mouth. 11/03/19 17 Active fluticasone propion-salme teroL (Wixela Inhub) 500-50 mcg/dose diskus inhaler Inhale [...] (one) time each day. 02/06/20 19 Active potassium chloride (KLOR-CON M10) 10 mEq CR tablet TAKE 1 TABLET BY MOUTH DAILY 90 tablet 3 02/06/20 24 Active acetaZOLAMIDE (DIAMOX) 250 mg tablet 03/16/19 25 Active azithromycin (ZITHROMAX) 250 mg tablet Take 1 tablet (250 mg total) by mouth 1 (one) time each day. Mon,sat,Saturday per pulm Active predniSONE (DELTASONE) 10 mg tablet TAKE 4 TABS DAILY FOR 3 DAYS. 3TABS DAILY FOR 3 DAYS 2TABS DAILY FOR 3 DAYS 1TAB DAILY FOR 3 DAYS 30 tablet 07/16/19 25 Active Additional Information Patient not taking.Reported on 08/11/2024 atorvastatin (LIPITOR) 20 mg tablet TAKE 1 TABLET BY MOUTH ONCE DAILY 80 tablet 3 07/21/19 25 Active dilTIAZem CD (CARDIZEM CD) 120 mg 24 hr capsule TAKE 1 CAPSULE BY MOUTH DAILY 100 capsule 08/04/19 25 Active warfarin (COUMADIN) 5 mg tablet TAKE 1-1.5 TABS BY MOUTH DAILY OR DIRECTED BY MD. MAY CAUSE HEAVY BLEEDING. TAKE AT THE SAME TIME EACH DAY AND DO NOT CHANGE DIETARY HABBIT 150 tablet 08/04/19 25 Active warfarin (COUMADIN) 5 mg tablet Saturday and Wednesdays 7.5mg, all other days takes 5mg 07/02/19 24 025 Discontinued dilTIAZem CD (CARDIZEM CD) 120 mg 24 hr capsule TAKE 1 CAPSULE BY MOUTH DAILY 100 capsule 1 01/29/20 24 025 Discontinued atorvastatin (LIPITOR) 20 mg tablet Take 1 tablet (20 mg total) by mouth 1 (one) time each day. 90 each 1 02/18/19 25 025 Discontinued doxycycline (VIBRAMYCIN) 100 mg capsuleIndica tions:Celluli tis of right lower extremity Take 1 capsule [...] 20 each 04/14/19 25 025 Discontinued(Re order) doxycycline (VIBRAMYCIN) 100 mg capsuleIndica tions:Celluli tis of right lower extremity Take 1 capsule (100 mg total) by mouth 2 (two) times a day for 10 days. Take with at least 8 ounces (large glass) of water, do not lie down for 30 minutes after. Administer 2 hours before or after multivitamins, antacids, or other products containing polyvalent cations (i.e., calcium, iron, magnesium, selenium, zinc). 20 each 07/16/19 25 025 cephalexin (KEFLEX) 500 mg capsule Take 1 capsule (500 mg total) by mouth 3 (three) times a day for 10 days. 30 each 07/17/19 25 025 Active Problems Problem Noted Date Diagnosed Date Oxygen dependent 08/11/2024 History of pneumonia 08/11/2024 Chronic deep vein thrombosis (DVT) of lower extremity ([facility] V24, [facility] V28) 11/07/2023 Overview (11/07/2023): Recurrent Diastolic heart failure (CMS/HCC V24, CMS/HCC V2 8) 07/06/2021 Overview (11/07/2023): Dr. Nava. Grade 1 diastolic dysfunction clinically euvolemic and well compensated Diastolic dysfunction, left ventricle 06/30/2021 Overview (11/07/2023): 06/30/2021 Dr. Nava [place] [facility]. No clinical signs central venous congestion. Medical therapy and pulmonary optimization with increased physical activity and breathing exercises recommended. Vascular disease 06/29/2021 DEREK and COPD overlap syndrome ([facility]/HCC V24, CMS/ HCC V28) 03/24/2021 Atelectasis, left 12/12/2018 Chronically elevated hemidiaphragm 12/12/2018 COPD (chronic obstructive pu lmonary disease) ([facility] V24, CMS/HCC V28) 12/12/2018 Overview (11/07/2023): Moderately severe Vitamin D deficiency 12/12/2018 Paroxysmal atrial fibrillation ([facility] V24, [facility] /[facility] V28) 12/11/2018 Overview (11/07/2023): On warfarin. Cardioversion 02/2018 Severe obesity (BMI 35.0-39. 9) with comorbidity (CMS/HCC V24, [facility] V28) 08/08/2016 Adrenal adenoma 04/10/2016 Aortic valve stenosis with insufficiency 012 Overview (11/07/2023): Echo 05/25/11 mild AMS, 2+ AI, mild rheumatic changes in mitral valve Ischemic cardiomyopathy 06/25/2011 Overview (11/07/2023): Echo 05/25/11, mild to moderate left ventricular systolic dysfunction, mildly reduced diastolic relaxation, wall motion abnormalities and apical septum and inferior base, sees Dr. Johnson Hematuria 11/14/2010 Overview (11/07/2023): 02/16, sees Dr Portilol, ct abd with kidney cysts, atypical cells [...] nl Hypercholesterolemia 09/22/2010 Hypertension 09/22/2010 Pulmonary embolism ([facility] V24, [facility] V28) Overview (11/07/2023): DVT right leg 1989, PE and DVT recurrent 02/1990, rajat filter placed. Anticoagulation- warfarin Encounters Date Type Department Care Team Description 08/11/2024 2:40 PM EDT - 08/11/2024 11:59 PM EDT Hospital Encounter Xray [address] [phone] Right elbow pain Discharge Disposition: Home or Self Care 08/11/2024 1:45 PM EDT Office Visit Adult [address] [phone] Leonardo Swenson PA Right elbow pain (Primary Dx); Adenoma of left adrenal gland; Chronic bronchitis, unspecified chronic bronchitis type ([facility] V24, [facility] V28); Primary hypertension; RBBB (right bundle branch block with left anterior fascicular block); History of pneumonia; Oxygen dependent 07/17/2024 Telephone Adult [address] [phone] Evelyn Simon MD arm pain follow up 07/16/2024 2:21 PM EDT - 07/16/2024 11:59 PM EDT Hospital Encounter Ultrasound - [address] [phone] Elbow swelling, right; Hand swelling Discharge Disposition: Home or Self Care 07/16/2024 2:15 PM EDT Office Visit Adult [address] [phone] Megan Morgan PA Elbow swelling, right (Primary Dx); Olecranon bursitis of right elbow; Cellulitis of right arm; Hand swelling; Chronic deep vein thrombosis (DVT) of other vein of lower extremity, unspecified laterality ([facility] V24, [facility] V28); Chronic diastolic heart failure ([facility] V24, [facility] V28); Ischemic cardiomyopathy; Chronic pulmonary embolism, unspecified pulmonary embolism type, unspecified whether acute cor pulmonale present ([facility] V24, [facility] V28); Paroxysmal atrial fibrillation ([facility] V24, [facility] V28) 06/30/2024 Telephone Adult [address] [phone] Evelyn Simon MD Results 06/22/2024 2:15 PM EDT - 06/22/2024 11:59 PM EDT Hospital Encounter CT Scan [address] [phone] scan, lung Discharge Disposition: Home or Self Care 06/22/2024 2:15 PM EDT - 06/22/2024 11:59 PM EDT Hospital Encounter CT Scan - [address] [phone] Discharge Disposition: Home or Self Care 06/15/2024 7:38 AM EDT - 06/15/2024 11:59 PM EDT Hospital Encounter [facility]ray [address] [place] [phone] Dysphagia, unspecified type Discharge Disposition: Home or Self Care 06/12/2024 Telephone Adult [address] [phone] Evelyn Simon MD Medication Problem (Med question); Wheezing; Pneumonia 06/09/2024 2:39 PM EDT - 06/09/2024 11:59 PM EDT [facility] [address] [place] [address] Acute cough Discharge Disposition: Home or Self Care 06/09/2024 2:30 PM EDT Office Visit Adult [facility] [address] [place] [phone] Kelsea Martinez MD Acute cough (Primary Dx) 06/09/2024 Telephone Adult Medicine [facility] [address] [place] [phone] Evelyn Simon MD Fever from Last 3 Months Immunizations Name Administration [...] COMMENT: Non obstructive CAD-mild disease APPENDECTOMY PROCEDURE: SC APPENDECTOMY OTHER SURGICAL HISTORY 09/28/2021 Right PROCEDURE: SC ENDOVEN ABLTJ INCMPTNT VEIN XTR LASER 1ST VEIN; COMMENT: Dr. Wall Medical History Medical History Date Comments Atrial flutter ([facility] V24, [facility] V28) 12/11/2018 DX:Atrial flutter (HCC); COM MENT: [...] hemidiaphragm COPD (chronic obstructive pu lmonary disease) ([facility] V24, [facility] V28) 12/12/2018 DX:COPD (chronic o bstructive pulmonary disease) ([facility]); COMMENT: Moderately severe Diverticulosis 09/22/2010 DX:Diverticulosi s; [...] your loved ones. For example, child care attendant school or elderly care for an older adult? [...] Sign Reading Time Taken Comments Blood Pressure 107/47 08/11/2024 1:42 PM EDT Pulse 72 08/11/2024 1:42 PM EDT Temperature 36.6 C (97.8 F) 08/11/2024 1:42 PM EDT Respiratory Rate 15 06/09/2024 2:05 PM EDT Oxygen Saturation 96% 08/11/2024 1:42 PM EDT Inhaled Oxygen Concentration - - Weight 116 kg (256 lb) 08/11/2024 1:42 PM EDT Height 170 cm (5' 6.93 ) 08/11/2024 1:42 PM EDT Body Mass Index 40.18 08/11/2024 1:42 PM EDT Plan of Treatment Upcoming Encounters Date Type Department Care Team (Late st Contact Info) Description 08/18/2024 1:00 PM EDT Office Visit Orthopedic Surgery [facility] [address] [phone] Dnony Hughes DPM [address] [address] 08/20/2024 11:45 AM EDT Office Visit Pulmonolgy - [place] [address] [phone] Mica Parikh MD [address] [address] 10/13/2024 11:00 AM EDT Office Visit [facility] Hematology Oncology [address] [place] [phone] Daphne Rodriguez DO [address] [place] [address] 12/14/2024 11:15 AM EST Office Visit Adult Medicine [facility] [address] [place] [phone] Leonardo Swenson PA [address] [place] [address] Health Maintenance Due Date Last Done Comments COVID-19 Vaccine ( season) 2024 11/25/2023, 11/15/2022, 11/01/2021, Additional history exists Influenza Vaccine (#1) 2024 , 11/15/2022, 11/01/2021 Depression Screening 01/05/2025 01/06/2024 Falls Risk Assessment [...] Completed 11/14/2018, 09/12, 09/14/2018, Additional history exists RSV Immunization Adult Patients Completed 11/25/2023 HIB [...] Name Priority Date/Time Associated Diagnosis Comments XR ELBOW 3+ VIEWS RIGHT Routine 08/11/2024 2:48 PM EDT Right elbow pain MANUAL DIFFERENTIAL - SYSMEX WAM Routine 08/11/2024 2:33 PM EDT Right elbow pain CBC WITH AUTO DIFFERENTIAL Routine 08/11/2024 2:33 PM EDT Right elbow pain B-TYPE NATRIURETIC PEPTIDE Routine 08/11/2024 2:33 PM EDT Chronic bronchitis, unspecified chronic bronchitis type (CMS/HCC V24, CMS/HCC V28) CBC AND DIFFERENTIAL Routine 08/11/2024 2:33 PM EDT Right elbow pain URIC ACID Routine 08/11/2024 2:33 PM EDT Right elbow pain VAS US DUPLEX UPPER EXT VENOUS RIGHT [...] Relevant to Health Maintenance Results * XR Elbow 3+ Views Right (08/11/2024 2:48 PM EDT) Anatomical Region Laterality Modality Upper Extremities, Elbow Right Radiogr aphic Imaging 08/12/2024 7:13 AM EDT Impressions 08/12/2024 7:26 AM EDT Prominent soft tissue swelling of the posteromedial elbow/distal upper arm. Mild degenerative changes. Joint effusion and intra-articular bodies. Medial epicondylitis. POS - [id number] -------- FINAL REPORT -------- Dictated By: Lizett Sanchez Dictated Date: 08/12/2024 07:13 ET Assigned Physician: Lizett Sanchez Reviewed and Electronically Signed By: Lizett Sanchez Signed Date: 08/12/2024 07:26 ET Workstation ID: [id number] Transcribed By: Self Edit Transcribed Date: 08/12/2024 07:13 ET Narrative 08/12/2024 7:26 AM EDT EXAM: Right elbow x-ray HISTORY: Right elbow pain and swelling. COMPARISON: None FINDINGS: 3 views performed. Prominent soft tissue swelling of the posteromedial elbow/distal upper arm. No acute fracture or dislocation detected. Spurring at the elbow joint with preserved joint spaces. Joint effusion present. Several corticated calcifications in the anterior and posterior joint concerning for intra-articular bodies measuring up to 0.5 cm. Tiny spurring of the medial epicondyle as seen with epicondylitis. No destructive bone lesion. Procedure Note Lizett Sanchez MD - 08/12/2024 EXAM: Right elbow x-ray HISTORY: Right elbow pain and swelling. COMPARISON: None FINDINGS: 3 views performed. Prominent soft tissue swelling of the posteromedial elbow/distal upperarm. No acute fracture or dislocation detected. Spurring at the elbowjoint with preserved joint spaces. Joint effusion present. Severalcorticated calcifications in the anterior and posterior joint concerningfor intra-articular bodies measuring up to 0.5 cm. Tiny spurring of themedial epicondyle as seen with epicondylitis. No destructive bonelesion. IMPRESSION: Prominent soft tissue swelling of the posteromedial elbow/distal upperarm. Mild degenerative changes. Joint effusion and intra-articular bodies.Medial epicondylitis. POS - [id number] -------- FINAL REPORT -------- Dictated By: Lizett Sanchez Dictated Date: 08/12/2024 07:13 ET Assigned Physician: Lizett Sanchez Reviewed and Electronically Signed By: Lizett Sanchez Signed Date: 08/12/2024 07:26 ET Workstation ID: [id number] Transcribed By: Self Edit Transcribed Date: 08/12/2024 07:13 ET Leonardo WING IMG XR PROCEDURES Final Result * (ABNORMAL) Manual differential (08/11/2024 2:33 PM EDT) Neutrophils % 57.0 % LAB HEMETOLOGY METHOD 08/11/2024 6:42 PM EDT [facility] Lymphocytes % 6.0 % LAB HEMETOLOGY METHOD 08/11/2024 6:[address] [facility] Reactive Lymphocyte 2.00 % LAB H[facility]OLOGY [facility] Monocytes % 32.0 % LAB HEMETOLOGY METHOD 08/11/2024 6:[address] [facility] Eosinophils % 4.0 % LAB HEMETOLOGY METHOD 08/11/2024 6:[address] [facility] Basophils % 0.0 % LAB HEMETOLOGY METHOD 08/11/2024 6:42 PM EDT [facility] Neutrophils Absolute Manual 4.96 1.50 - 7.00 K/mcL LAB HEMETOLOGY METHOD 08/11/2024 6:[facility] Lymphocytes Absolute 0.52(L) 1.00 - 5.00 K/mcL LAB HEMETOLOGY METHOD 08/11/2024 6:42 [facility] Reactive Lymph Abs Manual 0.17(H) 0.00 - 0.00 lym LAB HEMETOLOGY METHOD 08/11/2024 6:42 PM EDT [facility] Monocytes Absolute Manual 2.78(H) 0.20 - 1.00 K/[facility] LAB HEMETOLOGY METHOD 08/11/2024 6:42 PM EDT [facility] Eosinophils Absolute Manual 0.35 0.00 - 0.50 K/[facility] LAB HEMETOLOGY METHOD 08/11/2024 6:42 PM EDT [facility] Basophils Absolute Manual 0.00 0.00 - 0.20 K/[facility] LAB HEMETOLOGY METHOD 08/11/2024 6:42 PM EDT [facility] Rbc Morphology Consistent with indices Consistent with indices, Normal for [place] LAB HEMETOLOGY METHOD 08/11/2024 6:42 PM EDT [facility] Platelet Morphology - WAM See Note(A) Normal LAB HEMETOLOGY METHOD 08/11/2024 6:42 PM EDT [facility] Comment:PLT: Normal Blood Venous blood specimen / Unknown Venipuncture / Unknown 08/11/2024 2:33 PM EDT 08/11/2024 2:34 PM EDT Leonardo WING LAB BLOOD ORDERABLES Final Res ult [facility] [address] [place] [address], * (ABNORMAL) CBC auto differential (08/11/2024 2:33 PM EDT) WBC 8.7 4.8 - 10.8 K/mcL LAB HEMETOLOGY METHOD 08/11/2024 6:42 PM EDT [facility] RBC 4.40(L) 4.50 - 5.50 M/mcL LAB HEMETOLOGY METHOD 08/11/2024 6:42 PM EDT [facility] Hemoglobin 12.5(L) 13.5 - 17.5 g/dL LAB HEMETOLOGY METHOD 08/11/2024 6:42 PM EDT [facility] Hematocrit 41.3(L) 42.0 - 54.0 % LAB HEMETOLOGY METHOD 08/11/2024 6:42 PM EDT [facility] MCV 93.4 79.0 - 98.0 FL LAB HEMETOLOGY METHOD 08/11/2024 6:42 PM EDT [facility] MCH 28.3 27.0 - 32.0 pcg LAB HEMETOLOGY METHOD 08/11/2024 6:42 PM EDT [facility] MCHC 30.3(L) 32.0 - 37.0 g/dL LAB HEMETOLOGY METHOD 08/11/2024 6:42 PM EDT [facility] RDW 15.9(H) 11.0 - 15.0 % LAB HEMETOLOGY METHOD 08/11/2024 6:42 PM EDT [facility] Platelets 149 130 - 400 K/mcL LAB HEMETOLOGY METHOD 08/11/2024 6:42 PM EDT [facility] MPV 11.0 7.0 - 11.0 FL LAB HEMETOLOGY METHOD 08/11/2024 6:42 PM EDT [facility] NRBC 0.0 <1.0 % LAB HEMETOLOGY METHOD 08/11/2024 6:42 PM EDT [facility] NRBC Absolute 0.00 <0.10 K/mcL LAB HEMETOLOGY METHOD 08/11/2024 6:42 PM EDT [facility] Blood Venous blood specimen / Unknown Venipuncture / Unknown 08/11/2024 2:33 PM EDT 08/11/2024 2:34 PM EDT us Leonardo WING LAB BLOOD ORDERABLES Final Res ult [facility] [address] [place] [address], [place] [phone] * Uric acid (08/11/2024 2:33 PM EDT) Pathologist [facility] Uric Acid 4.6 3.7 - 9.2 mg/dL LAB CHEMISTRY METHOD 08/11/2024 6:27 PM EDT [facility] Blood Venous blood specimen / Unknown Venipuncture / Unknown 08/11/2024 2:33 PM EDT 08/11/2024 2:34 PM EDT us Leonardo WING LAB BLOOD ORDERABLES Final Res ult Performing Organization Address [facility]/ZIP Co de Phone Number [facility] [address] [place] [address], [place] [phone] * B-type natriuretic peptide (08/11/2024 2:33 PM EDT) [facility] BNP 54 <=100 pcg/mL LAB CHEMISTRY METHOD 08/11/2024 6:26 PM EDT [facility] Blood Venous blood specimen / Unknown Venipuncture / Unknown 08/11/2024 2:33 PM EDT 08/11/2024 2:34 PM EDT us Leonardo WING LAB BLOOD ORDERABLES Final Res ult Performing Organization Address [facility]/ZIP Co de Phone Number [facility] [address] [place] [address], [place] [phone] * Vascular US duplex upper extremity venous [...] Signed Date: 07/16/2024 15:13 ET Workstation ID: [id number] Transcribed By: Self Edit Transcribed Date: 07/16/2024 [...] Signed Date: 07/16/2024 15:13 ET Workstation ID: [id number] Transcribed By: Self Edit Transcribed Date: 07/16/2024 [...] cm compared with 1.8 cm on 08/08/2023. Relative washout is 10% which is indeterminate for an adenoma. Absolute washout is 100% consistent with an adenoma. However, it has been reported that a noncalcified, nonhemorrhagic lesion with precontrast attenuation of more than 43 Hounsfield units which is the case for this nodule is suspicious for malignancy regardless of washout characteristics. This feature and the interval enlargement of the nodule raise concern for malignancy. POS - [id number] -------- FINAL REPORT -------- Dictated By: Lizett Sanchez Dictated Date: 06/23/2024 13:24 ET Assigned Physician: Lizett Sanchez Reviewed and Electronically Signed By: Lizett Sanchez Signed Date: 06/23/2024 14:57 ET Workstation ID: [id number] Transcribed By: Self Edit Transcribed Date: 06/23/2024 14:03 ET Narrative 06/23/2024 2:57 PM EDT EXAM: CT abdomen HISTORY: Follow-up left adrenal mass. COMPARISON: CT abdomen 08/08/2023, 01/14/2023, and 07/05/2015, chest CT 03/23/2024 TECHNIQUE: CT of the abdomen without and with intravenous contrast and without oral contrast. Imaging performed per adrenal protocol. 100 cc of [id number] administered intravenously. Coronal and sagittal reformatted images were generated. The radiation dose total CTDIvol: 62.83 mGy. FINDINGS: Lower thorax: Please refer to the separately dictated chest CT from the same day for comments on the lower chest. Liver: Numerous hepatic cysts again noted with the largest measuring 8.0 cm in the left hepatic lobe. Gallbladder/biliary tree: Multiple tiny calcified gallstones in a nondistended gallbladder. No pericholecystic inflammatory changes. No biliary ductal dilatation. Spleen: No abnormality detected. Pancreas: No abnormality detected. Adrenal glands: Known left adrenal nodule has enlarged compared with the most recent abdominal CT from 08/08/2023 but stable in size compared with chest CT 03/23/2024. The nodule measures 2.5 x 2.2 cm in the axial plane compared with 1.8 x 1.8 cm on the previous abdominal CT. On the noncontrasted images, density is 45 Hounsfield units. Absolute washout is 100% consistent with an adenoma. However, it has been reported that a noncalcified, nonhemorrhagic lesion with precontrast attenuation of more than 43 Hounsfield units is suspicious for malignancy regardless of washout characteristics. Relative washout is 10% which is indeterminate. No right adrenal nodule. Kidneys/ureters: No hydronephrosis. Few tiny intrarenal stones on the left. Bilateral renal cysts. The dominant cyst on the right measuring up to 6.5 cm in the upper kidney has stable thin wall calcification. Other too small to characterize hypodense lesions bilaterally statistically represent cysts. Vasculature: Mild atherosclerotic calcifications. No abdominal aortic aneurysm. Hepatic veins and portal vein are patent. Stable incompletely evaluated dilatation of the inferior vena cava below the renal veins which contains a partially visualized chronically fractured inferior vena cava filter. Peritoneum: No evidence of free intraperitoneal air, free fluid, or organized collection. Lymph nodes: No lymphadenopathy detected. Bowel: Limited assessment of bowel without enteric contrast. Nonobstructed bowel pattern. No bowel inflammatory changes. Colonic diverticulosis. Body wall: Partially imaged chronic lipoma [...] the nodule raise concern formalignancy. POS - [id number] -------- FINAL REPORT -------- Dictated By: Lizett Sanchez Dictated Date: 06/23/2024 13:24 ET Assigned Physician: Lizett Sanchez Reviewed and Electronically Signed By: Lizett Sanchez Signed Date: 06/23/2024 14:57 ET Workstation ID: [id number] Transcribed By: Self Edit Transcribed Date: 06/23/2024 [...] for comments on abdominal findings. POS - [id number] -------- FINAL REPORT -------- Dictated By: Lizett Sanchez Dictated Date: 06/23/2024 13:04 ET Assigned Physician: Lizett Sanchez Reviewed and Electronically Signed By: Lizett Sanchez Signed Date: 06/23/2024 15:00 ET Workstation ID: [id number] Transcribed By: Self Edit Transcribed Date: 06/23/2024 13:24 ET Narrative 06/23/2024 3:00 PM EDT EXAM: Chest CT HISTORY: Follow-up abnormal chest CT. COMPARISON: 03/23/2024, 01/30/2022, 10/22/2017 TECHNIQUE: Multidetector CT is obtained from lung apex to base without IV contrast. Sagittal and coronal reformatted images obtained. Automated exposure control utilized. TOTAL CTDIvol: 15.72 mGy FINDINGS: Lungs/pleura: The 2.0 cm subpleural opacity in the lateral right upper lobe which was new on the most recent exam has resolved. Chronic elevation of the left hemidiaphragm without significant change in chronic confluent opacities with air bronchograms at the bases of the lingula and left lower lobe which likely represent chronic atelectasis. Stable streaky and linear opacities in the posterior and posteromedial right lower lobe from chronic atelectasis or scarring. Paraseptal emphysema again noted at the extreme apices. No pleural effusions. Lymph nodes: Sensitivity for lymphadenopathy is limited without IV contrast. Subcentimeter mediastinal lymph nodes. No definite enlarged hilar lymph nodes. Cardiovascular: Stable mild cardiomegaly. No pericardial effusion. Coronary calcifications again noted. Stable dilatation of ascending aorta measuring 4.1 cm. Remainder of the aorta is ectatic. Stable mild dilatation of the pulmonary trunk. Stable abandoned wire in the SVC. Soft tissues: Thyroid gland is not enlarged. No esophageal abnormality. Upper abdomen: Please refer to the separately dictated abdominal CT report for comments on abdominal findings. Bones: Multilevel degenerative changes in the spine. Sternotomy wires. Procedure Note Lizett Sanchez MD - [...] day forcomments on abdominal findings. POS - [id number] -------- FINAL REPORT -------- Dictated By: Lizett Sanchez Dictated Date: 06/23/2024 13:04 ET Assigned Physician: Lizett Sanchez Reviewed and Electronically Signed By: Lizett Sanchez Signed Date: 06/23/2024 15:00 ET Workstation ID: [id number] Transcribed By: Self Edit Transcribed Date: 06/23/2024 [...] Signed Date: 06/15/2024 11:47 ET Workstation ID: [id number] Transcribed By: Self Edit Transcribed Date: 06/15/2024 11:43 ET Resident/PA/WELL LOGGING OPERATOR MUD ANALYSIS: No Cesar Narrative 06/15/2024 11:47 AM EDT FINDINGS: Double contrast esophagram performed. Exam was limited due to patient inability to lay flat. COMPARISON: 2 view chest x-ray October 22, 2017 was reviewed. No prior esophagram imaging. HISTORY: Patient is a 78-year-old male with history of dysphagia, aspiration, cough. Setter Automatic Spinning Lathe radiographs: 1 view chest radiograph demonstrates stable [...] 78-year-old male with history of dysphagia,aspiration, cough. Setter Automatic Spinning Lathe radiographs: 1 view chest radiograph demonstrates stable [...] Signed Date: 06/15/2024 11:47 ET Workstation ID: [id number] Transcribed By: Self Edit Transcribed Date: 06/15/2024 11:43 ET Resident/PA/WELL LOGGING OPERATOR MUD ANALYSIS: No Cesar us Evelyn Valdez MD IMG FLUOROSCOPY SC OCEDURES Final Result * XR Chest 2 Views (06/09/2024 2:46 PM EDT) Anatomical Region Laterality Modality Body Radiographic Julienne ging 06/09/2024 5:09 PM EDT Impressions 06/09/2024 5:24 PM EDT Findings concerning for right lower lobe pneumonia. Follow-up recommended to ensure resolution. POS - [id number] -------- FINAL REPORT -------- Dictated By: Lizett Sanchez Dictated Date: 06/09/2024 17:09 ET Assigned Physician: Lizett Sanchez Reviewed and Electronically Signed By: Lizett Sanchez Signed Date: 06/09/2024 17:24 ET Workstation ID: [id number] Transcribed By: Self Edit Transcribed Date: 06/09/2024 17:09 ET Narrative 06/09/2024 5:24 PM EDT EXAM: Chest x-ray HISTORY: Acute cough. COMPARISON: 02/19/2024, 01/17/2022, and 01/02/2022, chest CT 03/23/2024 and 02/07/2022 FINDINGS: PA and lateral views of the chest were performed. Patchy opacities/consolidation in the posterior right lower lobe concerning for pneumonia. Chronic elevation of the left hemidiaphragm with stable largely linear left basilar opacities. Chronic blunting in the left costophrenic angle. No significant pleural effusions. No evidence of pulmonary edema. Stable cardiomegaly. Stable tortuous thoracic aorta. Mediastinal contours have similar appearance. Degenerative changes in the spine. Sternotomy wires. Procedure Note Lizett Sanchez MD - [...] pneumonia. Follow-up recommendedto ensure resolution. POS - [id number] -------- FINAL REPORT -------- Dictated By: Lizett Sanchez Dictated Date: 06/09/2024 17:09 ET Assigned Physician: Lizett Sanchez Reviewed and Electronically Signed By: Lizett Sanchez Signed Date: 06/09/2024 17:24 ET Workstation ID: [id number] Transcribed By: Self Edit Transcribed Date: 06/09/2024 17:09 ET Kelsea Martinez MD IMG XR PROCEDURES Isela l Result * Creatinine (05/22/2024 2:11 PM EDT) Creatinine 0.84 0.70 - 1.30 mg/dL LAB CHEMISTRY METHOD 05/22/2024 4:35 PM EDT [facility] eGFR 90 >=60 mL/min/1. 73m2 LAB CHEMISTRY METHOD 05/22/2024 4:35 PM EDT [facility] Comment:Calculation based on the Chronic Kidney Disease Epidemiology Collaboration (CKD-EPI) equation refit without adjustment for race. Blood Venous blood specimen / Unknown Venipuncture / Unknown 05/22/2024 2:11 PM EDT 05/22/2024 2:11 PM EDT Garo Florez MD LAB BLOOD ORDERABLES Final Resul t Performing Organization Address City/[facility] Co de Phone Number [facility] [address] [place] [address], [place] [phone] * BUN (05/22/2024 2:11 PM EDT) BUN 22 5 - 25 mg/dL LAB CHEMISTRY METHOD 05/22/2024 4:35 PM EDT [facility] Blood Venous blood specimen / Unknown Venipuncture / Unknown 05/22/2024 2:11 PM EDT 05/22/2024 2:11 PM EDT Garo Florez MD LAB BLOOD ORDERABLES Final Resul t [facility] [address] [place] [address], * Lipid panel (03/30/2020) LDL/HDL Ratio 3 0 - 4 Triglycerides 114 0 - 150 mg/dL Cholesterol 132 0 - 200 mg/dL HDL 43 >=40 mg/dL LDL Cholesterol 67 0 - 100 mg/dL Blood Venous blood specimen / Unknown us Historical Provider MD LAB BLOOD ORDERABLES Isela l Result * Hepatitis C Screening (06/19/2012) Hepatitis C Screening abstracted Historical Provider HEALTH MAINTENANCE Final Result from Last 3 Months or Most Recently Relevant to Health Maintenance Insurance * Guarantor: Leanne Jaramillo Account Type Relation to Patient Date of Phone Billing Address Personal/Family Self 1945 [phone] ([phone] [place] [address] [employer] Care Teams Senior Design Engineering Specialist Relationship Specialty Start Date End Date Evelyn Valdez MD [address] [place] [id number] PCP - General Internal Medicine 12/09/18
== END 2024-08-12 13:42 | disposition home or self-care (01) ==
LOC: HO.ACS 13:25
PROVIDERS: PCP Internal Medicine; Visit Provider Internal Medicine Medical Oncology
DX: Z79.01 Long term (current) use of anticoagulants (principal)

== ENCOUNTER → 2024-08-12 13:25 | Outpatient (BNVA) | payer MEDICARE, SELFPAY | PROVIDERS: PCP Internal Medicine; Visit Provider Internal Medicine Medical Oncology | DX: I48.19 Other persistent atrial fibrillation (principal); Z86.718 Personal history of other venous thrombosis and embolism; Z79.01 Long term (current) use of anticoagulants; Z51.81 Encounter for therapeutic drug level monitoring | CPT/HCPCS: 85610; 99211 ==

== ENCOUNTER 2024-09-09 13:19 | Outpatient (AMB) | payer MEDICARE, SELFPAY ==
[2024-09-09 13:36] LABS: Prothrombin Time Whole Bld POC 37.1 sec (11.1-13.5); ~PT, ~INR - Anti Coag Clinic 3.1 (0.9-1.1)
--- NOTE | 2024-09-09 13:42 | MHC.OFFVISCO ---
Intake Intake Visit Reasons: Anticoagulation Allergies albuterol Adverse Reaction (Intermediate, Verified 09/09/24 13:31) Palpitations amoxicillin (From Augmentin) Adverse Reaction (Intermediate, Verified 09/09/24 13:31) Nausea and Vomiting, dizziness clavulanic acid (From Augmentin) Adverse Reaction (Intermediate, Verified 09/09/24 13:31) Nausea and Vomiting, dizziness Medication List - Last Reconciled 09/09/24 by Lottie Avila RN acetaminophen 1,000 mg PO Q6H PRN acetazolamide 250 mg PO DAILY atorvastatin 20 mg PO DAILY azithromycin 250 mg PO 3XW diltiazem HCl CD 120 mg PO DAILY docusate sodium 200 mg PO DAILY empagliflozin (Jardiance) 10 mg PO DAILY flecainide 100 mg PO Q12H fluticasone propion-salmeterol 250-50 mcg/dose 1 inh inhalation Q12H furosemide 80 mg (2 x 40 mg) PO DAILY levalbuterol HCl 1.25 mg (0.5 mL) inhalation Q4H levalbuterol tartrate 45 mcg/actuation 2 inhalations PO Q4-6H PRN multivitamin 1 tab PO DAILY potassium chloride ER 10 mEq PO DAILY sennosides (senna) 25.8 mg PO BEDTIME warfarin See Protocol 7.5 mg orally 7.5 X 4 DAYS/ 5MG X 3 DAYS; Nursing Note INR: 3.1 out of therapeutic range 2-3 Medications and supplements reviewed Patient status: usual health Medications or supplements: no changes Diet: usual diet for pt Denies any signs and symptoms of bleeding or clotting or unusual bruising Bleeding, bruising, clotting discussed Nutritional guidance given: to have a serving of greens today Dose: 5mg X 5 days and 7.5mg X 2 days (Sat & Wed) F/U INR Date: 4 weeks?? Patient verbalizing understanding of instructions given. Anti-Coag Initial Assessment Social Hx Patient Tobacco Use Status: Former Tobacco user alcohol intake: current Alcohol intake frequency: holidays/special occasions only Coding Level of Care Code Est Patient Level 1 Diagnoses Current use of anticoagulant therapy Z79.01 Assessment & Plan Assessment & Plan (1) Current use of anticoagulant therapy: Code(s): Z79.01 - [facility] (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
--- OUTSIDE RECORDS SUMMARY | 2024-09-09 13:52 | XMS_ITS | Clinical Summary ---
Author Organization [facility] [address] [facility] lding Address [address] [place] [address] Phone Care Team Providers Care Case Sealer Name Role Phone Evelyn Valdez MD Primary Care Prov ider Allergies Active Allergy Reactions Criticality Noted Date Comments Amoxicillin-Pot Clavulanate Dizziness 01/09/20 23 Medications furosemide (LASIX) 40 mg tablet Take 1 tablet (40 mg total) by mouth 2 (two) times a day. 2 pills am 1 pill QHS 07/05/2023 Active flecainide (TAMBOCOR) 50 mg tablet Take 2 tablets (100 mg total) by mouth 2 (two) times a day. 07/05/2023 Active docusate sodium (COLACE) 100 mg capsule [...] 1 (one) time each day. 02/05/2019 Active potassium chloride (KLOR-CON M10) 10 mEq CR tablet TAKE 1 TABLET BY MOUTH DAILY 90 tablet 3 02/06/2024 Active acetaZOLAMIDE (DIAMOX) 250 mg tablet 03/16/2024 Active azithromycin (ZITHROMAX) 250 mg tablet Take 1 tablet (250 mg total) by mouth 1 (one) time each day. Mon,wed,Katie y per pulm Active predniSONE (DELTASONE) 10 mg tablet TAKE 4 TABS DAILY FOR 3 DAYS. 3TABS DAILY FOR 3 DAYS 2TABS DAILY FOR 3 DAYS 1TAB DAILY FOR 3 DAYS 30 tablet 07/15/2024 Active atorvastatin (LIPITOR) 20 mg tablet TAKE 1 TABLET BY MOUTH ONCE DAILY 80 tablet 3 07/20/2024 Active dilTIAZem CD (CARDIZEM CD) 120 mg 24 hr capsule TAKE 1 CAPSULE BY MOUTH DAILY 100 capsule 08/03/2024 Active warfarin (COUMADIN) 5 mg tablet TAKE 1-1.5 TABS BY MOUTH DAILY OR DIRECTED BY MD. MAY CAUSE HEAVY BLEEDING. TAKE AT THE SAME TIME EACH DAY AND DO NOT CHANGE DIETARY HABBIT 150 tablet 08/03/2024 Active Jardiance 10 mg tablet TAKE 1 TABLET (10 MG) ORALLY DAILY NEW 08/17/2024 Active tiotropium (SPIRIVA RESPIMAT) 2.5 mcg/actuation inhalation spray Inhale 2 puffs by mouth 1 (one) time each day. 1 each 08/20/2024 08/21/19 Active Active Problems Problem Noted Date Diagnosed Date Oxygen dependent 08/11/2024 History of pneumonia 08/11/2024 Chronic deep vein thrombosis (DVT) of lower extremity (CMS/HCC V24, CMS/HCC V28) 11/07/2023 Overview (11/07/2023): Recurrent Diastolic heart failure (CMS/HCC V24, CMS/HCC V2 8) 07/06/2021 Overview (11/07/2023): Dr. Nava. Grade 1 diastolic dysfunction clinically euvolemic and well compensated Diastolic dysfunction, left ventricle 06/30/2021 Overview (11/07/2023): 06/30/2021 Dr. Nava [place] cardiology. No clinical signs central venous congestion. Medical therapy and pulmonary optimization with increased physical activity and breathing exercises recommended. Vascular disease 06/29/2021 DEREK and COPD overlap syndrome ([facility] V24, [facility] V28) 03/24/2021 Atelectasis, left 12/12/2018 Chronically elevated hemidiaphragm 12/12/2018 COPD (chronic obstructive pu lmonary disease) ([facility] V24, [facility] V28) 12/12/2018 Overview (11/07/2023): Moderately severe Vitamin D deficiency 12/12/2018 Paroxysmal atrial fibrillation ([facility] V24, [facility] V28) 12/11/2018 Overview (11/07/2023): On warfarin. Cardioversion 02/2018 Severe obesity (BMI 35.0-39. 9) with comorbidity ([facility] V24, [facility] V28) 08/08/2016 Adrenal adenoma 04/10/2016 [...] nl Hypercholesterolemia 09/22/2010 Hypertension 09/22/2010 Pulmonary embolism ([facility] V24, [facility] V28) Overview (11/07/2023): DVT right leg 1989, PE and DVT recurrent 02/1990, [place] filter placed. Anticoagulation- warfarin Encounters Date Type Department Care Team Description 08/20/2024 11:45 AM EDT Office Visit Pulmonolgy - [place] [address] [facility] [address] [place] [phone] Mica Parikh MD Chronic obstructive pulmonary disease, unspecified COPD type ([facility]/HCC V24, CMS/HCC V28) (Primary Dx); Chronic bronchitis, unspecified chronic bronchitis type (CMS/HCC V24, CMS/HCC V28); Oxygen dependent; DEREK on CPAP; COPD with asthma (CMS/HCC V24, CMS/HCC V28); Bronchiectasis without acute exacerbation (CMS/HCC V24, CMS/HCC V28); Other chronic pulmonary embolism, unspecified whether acute cor pulmonale present ([facility]/HCC V24, CMS/HCC V28) 08/19/2024 10:00 AM EDT Consult Orthopedic Surgery [facility] [address] [facility] [address] [place] [phone] Brandt Perdomo MD Right wrist pain (Primary Dx); Elbow swelling, right 08/18/2024 1:00 PM EDT Office Visit Orthopedic Surgery [facility] [address] [facility] [address] [place] [address] Donny Hughes DPM Arthritis of both ankles (Primary Dx); Dermatophytosis of nail; Peripheral venous insufficiency 08/11/2024 2:40 PM EDT - 08/11/2024 11:59 PM EDT Hospital Encounter Xray [address] [phone] Right elbow pain Discharge Disposition: Home or Self Care 08/11/2024 1:45 PM EDT Office Visit [address] [phone] Leonardo Swenson PA Right elbow pain (Primary Dx); Adenoma of left adrenal gland; Chronic bronchitis, unspecified chronic bronchitis type (CMS/HCC V24, CMS/HCC V28); Primary hypertension; RBBB (right bundle branch block with left anterior fascicular block); History of pneumonia; Oxygen dependent 07/17/[address] [phone] Evelyn Valdez MD arm pain follow up 07/16/2024 2:21 PM EDT - 07/16/2024 11:59 PM EDT Hospital Encounter Ultrasound [address] [phone] Elbow swelling, right; Hand swelling Discharge Disposition: Home or Self Care 07/16/2024 2:15 PM EDT Office Visit [address] [phone] Megan Morgan PA Elbow swelling, right (Primary [...] CMS/HCC V28); Paroxysmal atrial fibrillation (CMS/HCC V24, CMS/[facility] V28) 06/30/2024 Telephone Adult Medicine [facility] [address] [place] [phone] Evelyn Valdez MD Results 06/22/2024 2:15 PM EDT - 06/22/2024 11:59 PM EDT Hospital Encounter CT Scan - [address] [phone] scan, lung Discharge Disposition: Home or Self Care 06/22/2024 2:15 PM EDT - 06/22/2024 11:59 PM EDT Hospital Encounter CT Scan - [place] [address] [place] [phone] Discharge Disposition: Home or Self Care 06/15/2024 7:38 AM EDT - 06/15/2024 11:59 PM EDT Hospital Encounter [facility] Xray [address] [place] [address] Dysphagia, unspecified type Discharge Disposition: Home or Self Care 06/12/2024 Telephone Adult Medicine - [place] [address] [place] [phone] Evelyn Valdez MD Medication Problem (Med question); Wheezing; Pneumonia from Last 3 Months Immunizations Name Administration [...] History Date Comments Atrial flutter (CMS/HCC V24, CMS/[facility] V28) 12/11/2018 DX:Atrial flutter (HCC); COM MENT: [...] 12/12/2018 DX:COPD (chronic o bstructive pulmonary disease) ([facility]); COMMENT: Moderately severe Diverticulosis 09/22/2010 [...] Smoking Tobacco: Former Cigarettes Q uit: 03/14/1989 Passive Smoke Exposure: Past Smokeless Tobacco: Former Alcohol Use Standard Drinks/Week [...] for your loved ones. For example, childcare director or elderly care for an older [...] Sign Reading Time Taken Comments Blood Pressure 113/55 08/20/2024 11:55 AM EDT Pulse 73 08/20/2024 11:55 AM EDT Temperature 36.6 C (97.8 F) 08/11/2024 1:42 PM EDT Respiratory Rate 18 08/20/2024 11:5 5 AM EDT Oxygen Saturation 94% 08/20/2024 11: 55 AM EDT 2 liters o2 Inhaled Oxygen Concentration - - Weight 117 kg (257 lb 12.8 oz) 08/21/19 11:55 AM EDT Height 175.3 cm (5' 9 ) 08/20/2024 11:5 5 AM EDT Body Mass Index 38.07 08/20/2024 11:55 AM EDT Plan of Treatment Upcoming Encounters Date Type Department Care Team (Late st Contact Info) Description 09/24/2024 12:30 PM EDT Ancillary Procedure Pulmonolgy - [place] [address] [place] [address] 09/24/2024 1:15 PM EDT Office Visit Pulmonolgy - [place] [address] [facility] [address] [place] [phone] Mica Parikh MD 175 [facility] [address] [place] [address] 10/13/2024 11:00 AM EDT Office Visit [facility] Hematology Oncology [address] [place] [address] Daphne Rodriguez DO [address] [place] [address] 11/18/2024 1:00 PM EDT Office Visit Orthopedic Surgery - [place] [address] [phone] Donny Hughes DPM [address] [address] 12/14/2024 11:15 AM EST Office Visit Adult Medicine - [place] [address] [place] [address] Leonardo Swenson PA [address] [place] [address] Health Maintenance Due Date Last Done Comments Depression Screening 02/12/2024 01/06/2024 COVID-19 Vaccine ( season) 2024 11/25/2023, 11/15/2022, 11/01/2021, Additional history exists Influenza Vaccine (#1) 2024 , 11/15/2022, 11/01/2021 Falls Risk Assessment 01/05/2025 01/06/2024 Medicare Annual [...] Name Priority Date/Time Associated Diagnosis Comments XR WRIST 3+ VIEWS RIGHT Routine 08/19/2024 10:39 AM EDT Right wrist pain XR ELBOW 3+ VIEWS RIGHT Routine 08/11/2024 [...] 06/15/2024 8:18 AM EDT Dysphagia, unspecified type CREATININE, SERUM Routine 05/22/2024 2:1 1 PM EDT Adenoma of left adrenal gland LIPID PANEL Routine 03/30/2020 HM HEPATITIS C SCREENING Routine 06/19/2012 from Last 3 Months or Most Recently Relevant to Health Maintenance Results * XR Wrist 3+ Views Right (08/19/2024 10:39 AM EDT) Anatomical Region Laterality Modality Upper Extremities, Wrist Right Compute d Radiography Narrative 08/19/2024 10:47 AM EDT Three-view x-rays of the right wrist shows no acute fractures. There are diffuse degenerative changes most severe at the thumb CMC joint with osteophyte formation . There are additional degenerative changes at the radiocarpal joint with joint space narrowing and subchondral sclerosis and radial beaking. There are degenerative changes at the carpometacarpal joint with carpal boss formation. Soft tissue show evidence of chondrocalcinosis particularly over the ulnar styloid and TFCC Impression: Diffuse degenerative changes at the right wrist us Brandt Perdomo MD IMG XR PROCEDURES Final Result * XR Elbow 3+ Views Right (08/11/2024 2:48 PM EDT) Anatomical Region Laterality Modality Upper Extremities, Elbow Right Radiogr aphic Imaging 08/12/2024 7:13 AM EDT Impressions 08/12/2024 7:26 AM EDT Prominent soft tissue swelling of the posteromedial elbow/distal upper arm. Mild degenerative changes. Joint effusion and intra-articular bodies. Medial epicondylitis. POS - [id number] -------- FINAL REPORT -------- Dictated By: Lizett Sanchez Dictated Date: 08/12/2024 07:13 ET Assigned Physician: Lizett Sanchez Reviewed and Electronically Signed By: Lizett Sanchez Signed Date: 08/12/2024 07:26 ET Workstation ID: [id number] Transcribed By: Self Edit Transcribed Date: 08/12/2024 [...] effusion and intra-articular bodies.Medial epicondylitis. POS - [id number] -------- FINAL REPORT -------- Dictated By: Lizett Sanchez Dictated Date: 08/12/2024 07:13 ET Assigned Physician: Lizett Sanchez Reviewed and Electronically Signed By: Lizett Sanchez Signed Date: 08/12/2024 07:26 ET Workstation ID: [id number] Transcribed By: Self Edit Transcribed Date: 08/12/2024 07:13 ET Leonardo WING IMG XR PROCEDURES Final Result * (ABNORMAL) Manual differential (08/11/2024 2:33 PM EDT) Neutrophils % 57.0 % LAB HEMETOLOGY METHOD 08/11/2024 6:42 PM EDT [facility] Lymphocytes % 6.0 % LAB [facility] Reactive Lymphocyte 2.00 % LAB HEMETOLOGY METHOD 08/11/2024 6:42 PM EDT [facility] Monocytes % 32.0 % LAB HEMETOLOGY METHOD 08/11/2024 6:42 PM EDT [facility] Eosinophils % 4.0 % LAB HEMETOLOGY METHOD 08/11/2024 6:42 PM EDT [facility] Basophils % 0.0 % LAB HEMETOLOGY METHOD 08/11/2024 6:42 PM EDT [facility] Neutrophils Absolute Manual 4.96 1.50 - 7.00 K/mcL LAB HEMETOLOGY METHOD 08/11/2024 6:42 PM EDT [facility] Lymphocytes Absolute 0.52(L) 1.00 - 5.00 K/mcL LAB HEMETOLOGY METHOD 08/11/2024 6:42 PM EDT [facility] Reactive Lymph Abs Manual 0.17(H) 0.00 - 0.00 lym LAB HEMETOLOGY METHOD 08/11/2024 6:42 PM EDT [facility] Monocytes Absolute Manual 2.78(H) 0.20 - 1.00 K/mcL LAB HEMETOLOGY METHOD 08/11/2024 6:42 PM EDT [facility] Eosinophils Absolute Manual 0.35 0.00 - 0.50 K/mcL LAB HEMETOLOGY METHOD 08/11/2024 6:42 PM EDT [facility] Basophils Absolute Manual 0.00 0.00 - 0.20 K/[facility] LAB HEMETOLOGY METHOD 08/11/2024 6:42 PM EDT [facility] Rbc Morphology Consistent with indices Consistent with indices, Normal for LAB HEMETOLOGY METHOD 08/11/2024 6:42 PM EDT [facility] Platelet Morphology - WAM See Note(A) Normal LAB HEMETOLOGY METHOD 08/11/2024 6:42 PM EDT [facility] Comment:PLT: Normal Blood Venous blood specimen / Unknown Venipuncture / Unknown 08/11/2024 2:33 PM EDT 08/11/2024 2:34 PM EDT Leonardo WIGN LAB BLOOD ORDERABLES Final Res ult [facility] [address] [place] [address], * (ABNORMAL) CBC auto differential (08/11/2024 2:33 PM EDT) WBC 8.7 4.8 - 10.8 K/mcL LAB HEMETOLOGY METHOD 08/11/2024 6:42 PM EDT [facility] RBC 4.40(L) 4.50 - 5.50 M/mcL LAB HEMETOLOGY METHOD 08/11/2024 6:42 PM EDT [facility] Hemoglobin 12.5(L) 13.5 - 17.5 g/dL LAB HEMETOLOGY METHOD 08/11/2024 6:42 PM EDT [facility] Hematocrit 41.3(L) 42.0 - 54.0 % LAB HEMETOLOGY METHOD 08/11/2024 6:42 PM EDT [facility] MCV 93.4 79.0 - 98.0 FL LAB HEMETOLOGY METHOD 08/11/2024 6:42 PM EDT [facility] MCH 28.3 27.0 - 32.0 pcg LAB HEMETOLOGY METHOD 08/11/2024 6:42 PM EDT [facility] MCHC 30.3(L) 32.0 - 37.0 g/dL LAB HEMETOLOGY METHOD 08/11/2024 6:42 PM EDT [facility] RDW 15.9(H) 11.0 - 15.0 % LAB HEMETOLOGY METHOD 08/11/2024 6:42 PM EDT [facility] Platelets 149 130 - 400 K/mcL LAB HEMETOLOGY METHOD 08/11/2024 6:42 PM EDT [facility] MPV 11.0 7.0 - 11.0 FL LAB HEMETOLOGY METHOD 08/11/2024 6:42 PM EDT [facility] NRBC 0.0 <1.0 % LAB HEMETOLOGY METHOD 08/11/2024 6:42 PM EDT [facility] NRBC Absolute 0.00 <0.10 K/mcL LAB HEMETOLOGY METHOD 08/11/2024 6:42 PM EDT [facility] Blood Venous blood specimen / Unknown Venipuncture / Unknown 08/11/2024 2:33 PM EDT 08/11/2024 2:34 PM EDT us Leonardo WING LAB BLOOD ORDERABLES Final Res ult [facility] [address] [place] [address], [place] [phone] * Uric acid (08/11/2024 2:33 PM EDT) Uric Acid 4.6 3.7 - 9.2 mg/dL LAB CHEMISTRY METHOD 08/11/2024 6:27 PM EDT [facility] Blood Venous blood specimen / Unknown Venipuncture / Unknown 08/11/2024 2:33 PM EDT 08/11/2024 2:34 PM EDT Leonardo WING LAB BLOOD ORDERABLES Final Res ult Performing Organization Address City/[facility]/ZIP Co de Phone Number [facility] [address] [place] [address], [place] [phone] * B-type natriuretic peptide (08/11/2024 2:33 PM EDT) Pathologist [facility] BNP 54 <=100 pcg/mL LAB CHEMISTRY METHOD 08/11/2024 6:26 PM EDT [facility] Blood Venous blood specimen / Unknown Venipuncture / Unknown 08/11/2024 2:33 PM EDT 08/11/2024 2:34 PM EDT Leonardo WING LAB BLOOD ORDERABLES Final Res ult [facility] [address] [place] [address], [place] [phone] * Vascular US duplex upper extremity venous [...] Signed Date: 07/16/2024 15:13 ET Workstation ID: [id number] Transcribed By: Self Edit Transcribed Date: 07/16/2024 [...] Signed Date: 07/16/2024 15:13 ET Workstation ID: [id number] Transcribed By: Self Edit Transcribed Date: 07/16/2024 [...] nodule raise concern for malignancy. POS - [id number] -------- FINAL REPORT -------- Dictated By: Lizett Sanchez Dictated Date: 06/23/2024 13:24 ET Assigned Physician: Lizett Sanchez Reviewed and Electronically Signed By: Lizett Sanchez Signed Date: 06/23/2024 14:57 ET Workstation ID: [id number] Transcribed By: Self Edit Transcribed Date: 06/23/2024 [...] the nodule raise concern formalignancy. POS - [id number] -------- FINAL REPORT -------- Dictated By: Lizett Sanchez Dictated Date: 06/23/2024 13:24 ET Assigned Physician: Lizett Sanchez Reviewed and Electronically Signed By: Lizett Sanchez Signed Date: 06/23/2024 14:57 ET Workstation ID: [id number] Transcribed By: Self Edit Transcribed Date: 06/23/2024 [...] for comments on abdominal findings. POS - [id number] -------- FINAL REPORT -------- Dictated By: Lizett Sanchez Dictated Date: 06/23/2024 13:04 ET Assigned Physician: Lizett Sanchez Reviewed and Electronically Signed By: Lizett Sanchez Signed Date: 06/23/2024 15:00 ET Workstation ID: [id number] Transcribed By: Self Edit Transcribed Date: 06/23/2024 [...] day forcomments on abdominal findings. POS - [id number] -------- FINAL REPORT -------- Dictated By: Lizett Sanchez Dictated Date: 06/23/2024 13:04 ET Assigned Physician: Lizett Sanchez Reviewed and Electronically Signed By: Lizett Sanchez Signed Date: 06/23/2024 15:00 ET Workstation ID: [id number] Transcribed By: Self Edit Transcribed Date: 06/23/2024 [...] Signed Date: 06/15/2024 11:47 ET Workstation ID: [id number] Transcribed By: Self Edit Transcribed Date: 06/15/2024 11:43 ET Resident/PA/LEATHER GRADER: No Cesar Narrative 06/15/2024 11:47 AM EDT FINDINGS: Double contrast esophagram performed. Exam was limited due to patient inability to lay flat. COMPARISON: 2 view chest x-ray October 22, 2017 was reviewed. No prior esophagram imaging. HISTORY: Patient is a 78-year-old male with history of dysphagia, aspiration, cough. Air Pollution Engineer radiographs: 1 view chest radiograph demonstrates stable [...] 78-year-old male with history of dysphagia,aspiration, cough. Air Pollution Engineer radiographs: 1 view chest radiograph demonstrates stable [...] Signed Date: 06/15/2024 11:47 ET Workstation ID: [id number] Transcribed By: Self Edit Transcribed Date: 06/15/2024 11:43 ET Resident/PA/LEATHER GRADER: No Cesar us Evelyn Valdez MD IMG FLUOROSCOPY ME OCEDURES Final Result * Creatinine (05/22/2024 2:11 PM EDT) Creatinine 0.84 0.70 - 1.30 mg/dL LAB CHEMISTRY METHOD 05/22/2024 4:35 PM EDT [facility] eGFR 90 >=60 mL/min/1. 73m2 LAB CHEMISTRY METHOD 05/22/2024 4:35 PM EDT [facility] Comment:Calculation based on the Chronic Kidney Disease Epidemiology Collaboration (CKD-EPI) equation refit without adjustment for race. Blood Venous blood specimen / Unknown Venipuncture / Unknown 05/22/2024 2:11 PM EDT 05/22/2024 2:11 PM EDT Garo Florez MD LAB BLOOD ORDERABLES Final Resul t [facility] ([facility] [address] [place] [address], * Lipid panel (03/30/2020) LDL/HDL Ratio 3 0 - 4 Triglycerides 114 0 - 150 mg/dL Cholesterol 132 0 - 200 mg/dL HDL 43 >=40 mg/dL LDL Cholesterol 67 0 - 100 mg/dL Blood Venous blood specimen / Unknown Richard Titus MD LAB BLOOD ORDERABLES Isela l Result * Hepatitis C Screening (06/19/2012) Pathologist [facility] Hepatitis C Screening abstracted Richard Titus MD HEALTH MAINTENANCE Final Result from Last 3 Months or Most Recently Relevant to Health Maintenance Insurance * Guarantor: Leanne Jaramillo Account Type Relation to Patient Date of Phone Billing Address Personal/Family Self 1945 [phone] ([phone] [place] [address] [facility] MEDICARE Care Teams Case Sealer Relationship Specialty Start Date End Date Evelyn Valdez MD [address] [place] [id number] PCP - General Internal Medicine 12/09/18
== END 2024-09-09 13:48 | disposition home or self-care (01) ==
LOC: HO.ACS 13:19
PROVIDERS: PCP Internal Medicine; Visit Provider Internal Medicine Medical Oncology
DX: Z79.01 Long term (current) use of anticoagulants (principal)

== ENCOUNTER → 2024-09-09 13:19 | Outpatient (BNVA) | payer MEDICARE, SELFPAY | PROVIDERS: PCP Internal Medicine; Visit Provider Internal Medicine Medical Oncology | DX: I48.19 Other persistent atrial fibrillation (principal); Z86.718 Personal history of other venous thrombosis and embolism; Z79.01 Long term (current) use of anticoagulants; Z51.81 Encounter for therapeutic drug level monitoring | CPT/HCPCS: 85610; 99211 ==

== ENCOUNTER 2024-10-08 13:22 | Outpatient (AMB) | payer MEDICARE, SELFPAY ==
--- OUTSIDE RECORDS SUMMARY | 2023-11-26 17:25 | XMS_ITS | Continuity of Care Document ---
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 Name Role Phone [facility] Unavailable Unavailable Problems Problem Status Onset Date Classification Date Reported Comments Source Acute embolism and thrombosis of unspeci Active 11/28/2021 [facility] Acute respiratory failure with hypoxia Active 11/28/2021 12/02/2021 45 [facility] COPD exacerbation Active 11/28/2021 12/02/2021 45 [facility] Influenza A Active 11/28/2021 12/02/2021 45 [facility] Paroxysmal atrial fibrillation Active 11/28/2021 12/02/2021 45 [facility] Anticoagulated Active 11/28/2021 12/02/2021 45 [facility] Morbid obesity Active 11/28/2021 12/02/2021 45 [facility] Shortness of breath Active [facility] Medications Medication Details Route Status Patient Instructions Ordering Provider Order Date Source guaiFENesin 600 mg oral tablet, extended release = 1 Tab, ORAL, BID, X 5 Day(s), # 10 Tab, 0 Refill(s), Acute, Pharmacy: [facility], 175.6, cm, 11/28/21 6:49:00 HST, Height/Length (cm), 117.8, kg, 11/28/21 6:49:00 HST, Dose calculation weight (kg) Active 022 45 [facility] Albuterol (Eqv-Proventil HFA) 90 mcg/inh inhalation aerosol 2 Puff, INH, Q6H, # 8.5 gm, 0 Refill(s), Maintenance, Pharmacy: [facility], 175.6, cm, 11/28/21 6:49:00 HST, Height/Length (cm), 117.8, kg, 11/28/21 6:49:00 HST, Dose calculation weight (kg) Active [facility] Tamiflu 75 mg oral capsule = 1 Cap, ORAL, BID, X 2 Day(s), # 4 Cap, 0 Refill(s), [facility], cm, 11/28/21 6:49:00 HST, Height/Length (cm), 117.8, kg, 11/28/21 6:49:00 HST, Dose calculation weight (kg) Active [facility] predniSONE 50 mg oral tablet = 1 Tab, ORAL, DAILY, X 5 Day(s), # 5 Tab, 0 Refill(s), Acute, Pharmacy: [facility], 175.6, cm, 11/28/21 6:49:00 HST, Height/Length (cm), 117.8, kg, 11/28/21 6:49:00 HST, Dose calculation weight (kg) Active [facility] multivitamin oral 1 Tab, ORAL, DAILY, OTC, Maintenance Active [facility] [place] Senna = 1 Tab, ORAL, DAILY, OTC, Maintenance Active [facility] warfarin 5 mg oral tablet = 1.5 Tab, ORAL, QTThSa, Maintenance Active [facility] PREPACK Albuterol (0.83 mg/mL) 2.5mg/3mL #6 3 mL, INH, Q4H, PRN Shortness of breath/wheezin g, Maintenance Active [facility] [place] Wixela Inhub 500 mcg-50 mcg inhalation powder 1 Inhalation, INH, BID, Maintenance Active [facility] warfarin 5 mg oral tablet = 1 Tab, ORAL, QSuMWF, 0 Refill(s), Maintenance Active [facility] DilTIAZem (Eqv-Cardizem CD) 120 mg/24 hours oral capsule, extended release = 1 Cap, ORAL, DAILY, 0 Refill(s), Maintenance Active [facility] Klor-Con 10 mEq oral tablet, extended release = 1 Tab, ORAL, DAILY, 0 Refill(s), Maintenance Active 45 [facility] [place] flecainide 50 mg oral tablet = 1 Tab, ORAL, Q12H, 0 Refill(s), Maintenance Active 45 [facility] furosemide 40 mg oral tablet = 1 Tab, ORAL, BID, 0 Refill(s), Maintenance Active 45 [facility] [place] atorvastatin 20 mg oral tablet = 1 Tab, ORAL, DAILY, 0 Refill(s), Maintenance Active 45 [facility] [place] Allergies, Adverse Reactions, Alerts Substance Category Reaction Severity Reaction type Status Date Reported Comments Source Augmentin Assertion vomiting, dizziness Drug allergy Active 45 [facility] [place] Results Order Name Results Value Reference Range Date Interpretation Comments Source AutoDiff * Auto Neutrophil Percent 67.8 % 40.0 - 80.0 12/01 [facility] [place] AutoDiff * Auto Neutrophil Absolute 6.1 K/uL 12/01 [facility] [place] AutoDiff * Auto Lymphocyte Percent 13.0 % 18.0 - 45.0 12/01 L [facility] [place] AutoDiff * Auto Lymphocyte Absolute 1.2 K/uL 12/01 [facility] [place] AutoDiff * Auto Monocyte Percent 19.0 % 3.0 - 12.0 12/01 H [facility] [place] AutoDiff * Auto Monocyte Absolute 1.7 K/uL 12/01 [facility] [place] AutoDiff * Auto Eosinophil Percent 0.1 % - <=7.0 12/01 [facility] [place] AutoDiff * Auto Eosinophil Absolute 0.0 K/uL 12/01 [facility] [place] AutoDiff * Auto Basophil Percent 0.1 % - <=2.0 12/01 [facility] [place] AutoDiff * Auto Basophil Absolute 0.0 K/uL 12/01 [facility] [place] AutoDiff * Sex assigned at Male 12/01 [facility] [place] CBC WBC 9.0 K/uL 3.5 - 10.4 10/21 /2022 NA [facility] [place] CBC RBC 4.83 M/uL 4.00 - 6.20 12/01 NA [facility] [place] CBC HGB 14.2 gm/dL 14.0 - 18.0 12/01 NA [facility] CBC HCT 42.7 % 42.0 - 52.0 12/01 NA [facility] CBC MCV 88.4 fL 82.0 - 101.0 12/01 NA [facility] [place] CBC MCH 29.4 pg 26.0 - 34.0 12/01 NA [facility] [place] CBC MCHC 33.2 gm/dL 32.0 - 36.0 12/01 NA [facility] CBC RDW 15.2 % 11.0 - 15.0 12/01 H [facility] [place] CBC PLT 127 K/uL 140 - 440 12/01 L [facility] CBC MPV 8.5 fL 7.4 - 11.4 12/01 NA [facility] [place] CBC Sex assigned at Male 12/01 NA [facility] [place] CBC Manual Diff Y/N SReview 12/01 NA [facility] CMP Sodium Level 143 mmol/L 136 - 145 12/01 NA [facility] CMP Potassium Level 3.8 mmol/L 3.5 - 5.1 12/01 NA [facility] CMP Chloride Level 101 mmol/L 98 - 107 12/01 NA [facility] CMP CO2/Carbon Dioxide 34.6 mmol/L 21.0 - 32.0 12/01 H [facility] [place] CMP Anion Gap 7 mmol/L 4 - 16 12/01 NA [facility] CMP Glucose, Random 90 mg/dL 70 - 95 12/01 NA Reference ranges are based on a fasting specimen. [facility] CMP BUN 33 mg/dL 7 - 20 12/01 H [facility] [place] CMP Creatinine 0.8 mg/dL 0.9 - 1.3 12/01 L [facility] [place] CMP BUN/Creat Ratio 41.2 12/01 [facility] CMP Osmolality, Calculated 303 12/01 [facility] Calcium Level 9.0 mg/dL 8.6 - 10.0 12/01 [facility] C[facility] Total Protein 6.4 gm/dL 6.4 - 8.2 12/01 [facility] CMP Albumin Level 3.7 gm/dL 3.5 - 5.0 12/01 [facility] CMP Globulin Level 2.7 gm/dL 2.0 - 4.0 12/01 [facility] CMP A/G Ratio 1.4 1.1 - 2.2 12/01 [facility] CMP ALP 61 units/L 38 - 126 12/01 [facility] [place] CMP ALT 26 units/L 10 - 40 12/01 [facility] CMP AST 16 units/L 15 - 41 12/01 [facility] CMP Bilirubin, Total 0.6 mg/dL - <=1.0 12/01 [facility] CMP GFR - Non >60 mL/min/1.73 m2 12/01 NA <60 = Renal Insufficiency , <15 = Renal Failure. This equation is not applicable to person's under 18 years of age.eGFR calculation based on the IDID traceable four-paramete r MDRD equation. [facility] CMP GFR - >60 mL/min/1.73 m2 12/01 [facility] C[facility] Sex assigned at Male 12/01 [facility] PT PT - Patient 25.1 sec 11.8 - 13.8 12/01 H [facility] PT PT - INR 2.42 12/01 INDICATION INR Prophylaxis for venous thrombosis and 2.0 - 3.0 treatment of pulmonary embolism Prevention of systemic embolism in patients with 2.0 - 3.0 atrial fibrillation, valvular heart disease,tissu e heart valves, bileaflet mechanical valve in aortic position, or acute myocardial infarction Certain patients with thrombosis and the 2.0 - 3.0 antiphospholi pid syndrome Mechanical prosthetic heart valves and prevention 2.5 - 3.5 of recurrent myocardial infarction [facility] [place] PT Sex assigned at Male 12/01 NA [facility] SReview Anisocytosis 1+ None 12/01 * [facility] SReview RBC Morphology Abnormal Normal 12/01 * [facility] SReview Sex assigned at Male 12/01 NA [facility] [place] AutoDiff * Auto Neutrophil Percent 71.4 % 40.0 - 80.0 11/30 NA [facility] [place] AutoDiff * Auto Neutrophil Absolute 7.3 K/uL 11/30 NA [facility] [place] AutoDiff * Auto Lymphocyte Percent 10.6 % 18.0 - 45.0 11/30 L [facility] [place] AutoDiff * Auto Lymphocyte Absolute 1.1 K/uL 11/30 NA [facility] [place] AutoDiff * Auto Monocyte Percent 17.8 % 3.0 - 12.0 11/30 H [facility] [place] AutoDiff * Auto Monocyte Absolute 1.8 K/uL 11/30 NA [facility] [place] AutoDiff * Auto Eosinophil Percent 0.1 % - <=7.0 11/30 NA [facility] [place] AutoDiff * Auto Eosinophil Absolute 0.0 K/uL 11/30 NA [facility] [place] AutoDiff * Auto Basophil Percent 0.1 % - <=2.0 11/30 NA [facility] [place] AutoDiff * Auto Basophil Absolute 0.0 K/uL 11/30 NA [facility] [place] AutoDiff * Sex assigned at Male 11/30 NA [facility] [place] CBC WBC 10.2 K/uL 3.5 - 10.4 11/30 NA [facility] [place] CBC RBC 4.66 M/uL 4.00 - 6.20 11/30 NA [facility] CBC HGB 13.9 gm/dL 14.0 - 18.0 11/30 L [facility] CBC HCT 41.3 % 42.0 - 52.0 11/30 L [facility] CBC MCV 88.7 fL 82.0 - 101.0 11/30 NA [facility] CBC MCH 29.8 pg 26.0 - 34.0 11/30 NA [facility] CBC MCHC 33.5 gm/dL 32.0 - 36.0 11/30 NA [facility] [place] CBC RDW 15.3 % 11.0 - 15.0 11/30 H [facility] [place] CBC PLT 121 K/uL 140 - 440 11/30 L [facility] CBC MPV 7.9 fL 7.4 - 11.4 11/30 NA [facility] CBC Manual Diff Y/N SReview 11/30 NA [facility] CBC Sex assigned at Male 11/30 NA [facility] CMP Sodium Level 138 mmol/L 136 - 145 11/30 NA [facility] CMP Potassium Level 3.9 mmol/L 3.5 - 5.1 11/30 NA [facility] CMP Chloride Level 99 mmol/L 98 - 107 11/30 NA [facility] [place] CMP CO2/Carbon Dioxide 33.80 mmol/L 21.00 - 32.00 11/30 H [facility] [place] CMP Anion Gap 5 mmol/L 4 - 16 11/30 NA [facility] CMP Glucose, Random 97 mg/dL 70 - 95 11/30 H Reference ranges are based on a fasting specimen. [facility] CMP BUN 33 mg/dL 7 - 20 11/30 H [facility] CMP Creatinine 0.7 mg/dL 0.9 - 1.3 11/30 L [facility] [place] CMP BUN/Creat Ratio 47.1 11/30 NA [facility] [place] CMP Osmolality, Calculated 293 11/30 NA [facility] [place] CMP Calcium Level 8.7 mg/dL 8.6 - 10.0 11/30 NA [facility] CMP Total Protein 6.3 gm/dL 6.4 - 8.2 11/30 L [facility] CMP Albumin Level 3.8 gm/dL 3.5 - 5.0 11/30 NA [facility] CMP Globulin Level 2.5 gm/dL 2.0 - 4.0 11/30 NA [facility] CMP A/G Ratio 1.5 1.1 - 2.2 11/30 NA [facility] CMP ALP 56 units/L 38 - 126 11/30 NA [facility] CMP ALT 21 units/L 10 - 40 11/30 NA [facility] CMP AST 17 units/L 15 - 41 11/30 NA [facility] CMP Bilirubin, Total 0.6 mg/dL - <=1.0 11/30 NA [facility] CMP GFR - Non >60 mL/min/1.73 m2 11/30 NA <60 = Renal Insufficiency , <15 = Renal Failure. This equation is not applicable to person's under 18 years of age.eGFR calculation based on the IDID traceable four-paramete r MDRD equation. [facility] CMP GFR - >60 mL/min/1.73 m2 11/30 NA [facility] CMP Sex assigned at Male 11/30 NA [facility] PT PT - Patient 25.6 sec 11.8 - 13.8 11/30 H [facility] PT PT - INR 2.48 11/30 INDICATION INR Prophylaxis for venous thrombosis and 2.0 - 3.0 treatment of pulmonary embolism Prevention of systemic embolism in patients with 2.0 - 3.0 atrial fibrillation, valvular heart disease,tissu e heart valves, bileaflet mechanical valve in aortic position, or acute myocardial infarction Certain patients with thrombosis and the 2.0 - 3.0 antiphospholi pid syndrome Mechanical prosthetic heart valves and prevention 2.5 - 3.5 of recurrent myocardial infarction [facility] [place] PT Sex assigned at Male 11/30 NA [facility] [place] SReview Anisocytosis 1+ None 11/30 * [facility] SReview RBC Morphology Abnormal Normal 11/30 * [facility] [place] SReview Sex assigned at Male 11/30 NA [facility] [place] AutoDiff * Auto Neutrophil Percent 73.6 % 40.0 - 80.0 11/29 NA [facility] [place] AutoDiff * Auto Neutrophil Absolute 8.8 K/uL 11/29 NA [facility] [place] AutoDiff * Auto Lymphocyte Percent 5.5 % 18.0 - 45.0 11/29 L [facility] [place] AutoDiff * Auto Lymphocyte Absolute 0.7 K/uL 11/29 NA [facility] [place] AutoDiff * Auto Monocyte Percent 20.9 % 3.0 - 12.0 11/29 H [facility] [place] AutoDiff * Auto Monocyte Absolute 2.5 K/uL 11/29 NA [facility] [place] AutoDiff * Auto Eosinophil Percent 0.0 % - <=7.0 11/29 NA [facility] [place] AutoDiff * Auto Eosinophil Absolute 0.0 K/uL 11/29 NA [facility] [place] AutoDiff * Auto Basophil Percent 0.0 % - <=2.0 11/29 NA [facility] [place] AutoDiff * Auto Basophil Absolute 0.0 K/uL 11/29 NA [facility] [place] AutoDiff * Sex assigned at Male 11/29 NA [facility] [place] CBC WBC 12.0 K/uL 3.5 - 10.4 11/29 H [facility] [place] CBC RBC 4.69 M/uL 4.00 - 6.20 11/29 NA [facility] [place] CBC HGB 13.8 gm/dL 14.0 - 18.0 11/29 L [facility] [place] CBC HCT 42.2 % 42.0 - 52.0 11/29 NA [facility] [place] CBC MCV 89.9 fL 82.0 - 101.0 11/29 NA [facility] [place] CBC MCH 29.3 pg 26.0 - 34.0 11/29 NA [facility] [place] CBC MCHC 32.6 gm/dL 32.0 - 36.0 11/29 NA [facility] CBC RDW 15.1 % 11.0 - 15.0 11/29 H [facility] [place] CBC PLT 121 K/uL 140 - 440 11/29 L [facility] [place] CBC MPV 8.5 fL 7.4 - 11.4 11/29 NA [facility] CBC Manual Diff Y/N SReview 11/29 NA [facility] CBC Sex assigned at Male 11/29 NA [facility] CMP Sodium Level 140 mmol/L 136 - 145 11/29 NA [facility] CMP Potassium Level 4.1 mmol/L 3.5 - 5.1 11/29 NA [facility] CMP Chloride Level 102 mmol/L 98 - 107 11/29 NA [facility] [place] CMP CO2/Carbon Dioxide 30.5 mmol/L 21.0 - 32.0 11/29 NA [facility] [place] CMP Anion Gap 8 mmol/L 4 - 16 11/29 NA [facility] CMP Glucose, Random 115 mg/dL 70 - 95 11/29 H Reference ranges are based on a fasting specimen. [facility] CMP BUN 27 mg/dL 7 - 20 11/29 H [facility] CMP Creatinine 0.7 mg/dL 0.9 - 1.3 11/29 L [facility] [place] CMP BUN/Creat Ratio 38.6 11/29 NA [facility] CMP Osmolality, Calculated 296 11/29 NA [facility] [place] CMP Calcium Level 9.0 mg/dL 8.6 - 10.0 11/29 NA [facility] CMP Total Protein 6.6 gm/dL 6.4 - 8.2 11/29 NA [facility] CMP Albumin Level 3.8 gm/dL 3.5 - 5.0 11/29 NA [facility] CMP Globulin Level 2.8 gm/dL 2.0 - 4.0 11/29 NA [facility] [place] CMP A/G Ratio 1.4 1.1 - 2.2 11/29 NA [facility] CMP ALP 59 units/L 38 - 126 11/29 NA [facility] CMP ALT 21 units/L 10 - 40 11/29 NA [facility] [place] CMP AST 18 units/L 15 - 41 11/29 NA [facility] CMP Bilirubin, Total 0.5 mg/dL - <=1.0 11/29 NA [facility] CMP GFR - Non >60 mL/min/1.73 m2 11/29 NA <60 = Renal Insufficiency , <15 = Renal Failure. This equation is not applicable to person's under 18 years of age.eGFR calculation based on the IDID traceable four-paramete r MDRD equation. [facility] CMP GFR - >60 mL/min/1.73 m2 11/29 NA [facility] CMP Sex assigned at Male 11/29 NA [facility] PT PT - Patient 26.6 sec 11.8 - 13.8 11/29 H [facility] PT PT - INR 2.61 11/29 INDICATION INR Prophylaxis for venous thrombosis and 2.0 - 3.0 treatment of pulmonary embolism Prevention of systemic embolism in patients with 2.0 - 3.0 atrial fibrillation, valvular heart disease,tissu e heart valves, bileaflet mechanical valve in aortic position, or acute myocardial infarction Certain patients with thrombosis and the 2.0 - 3.0 antiphospholi pid syndrome Mechanical prosthetic heart valves and prevention 2.5 - 3.5 of recurrent myocardial infarction [facility] PT Sex assigned at Male 11/29 NA [facility] SReview Anisocytosis 1+ None 11/29 * [facility] SReview RBC Morphology Abnormal Normal 11/29 * [facility] SReview Sex assigned at Male 11/29 NA [facility] POC CG4+ Harshal VBG - pH 7.390 7.310 - 7.410 11/28 NA Device Code: LAB iSTATFacility : 0045Location: EDSerial Number: [id number] r Code: superkOperato r Name: Aditi Cornelius able Lot: [id number] [facility] POC CG4+ Harshal VBG - pCO2 46.6 mmHg 41.0 - 51.0 11/28 NA [facility] POC CG4+ Harshal VBG - pO2 45 mmHg 30 - 40 11/28 H [facility] [place] POC CG4+ Harshal VBG - HCO3 28.2 mmol/L 23.0 - 28.0 11/28 H [facility] POC CG4+ Harshal VBG - TCO2 30 mmol/L 24 - 29 11/28 H [facility] POC CG4+ Harshal VBG - O2 Sat 80.0 % 0.0 - 75.0 11/28 H [facility] [place] POC CG4+ Harshal VBG - BE 2 mmol/L -3 - 3 11/28 NA [facility] POC CG4+ Harshal POCT - Lactate/Lacti c Acid 0.90 mmol/L 0.50 - 1.90 11/28 NA [facility] POC CG4+ Harshal BG - Modified Bayron Test NA 11/28 NA [facility] POC CG4+ Harshal BG - Site OTHER 11/28 NA [facility] POC CG4+ Harshal Sex assigned at Male 11/28 NA [facility] BMP Sodium Level 136 mmol/L 136 - 145 11/28 NA [facility] BMP Potassium Level 3.7 mmol/L 3.5 - 5.1 11/28 NA [facility] BMP Chloride Level 100 mmol/L 98 - 107 11/28 NA [facility] BMP CO2/Carbon Dioxide 26.10 mmol/L 21.00 - 32.00 11/28 NA [facility] BMP Anion Gap 10 mmol/L 4 - 16 11/28 NA [facility] BMP Glucose, Random 105 mg/dL 70 - 95 11/28 H Reference ranges are based on a fasting specimen. [facility] BMP BUN 26 mg/dL 7 - 20 11/28 H [facility] BMP Creatinine 0.8 mg/dL 0.9 - 1.3 11/28 L [facility] BMP BUN/Creat Ratio 32.5 11/28 NA [facility] BMP Osmolality, Calculated 287 11/28 NA [facility] BMP Calcium Level 8.6 mg/dL 8.6 - 10.0 11/28 NA [facility] BMP GFR - Non >60 mL/min/1.73 m2 11/28 NA <60 = Renal Insufficiency , <15 = Renal Failure. This equation is not applicable to person's under 18 years of age.eGFR calculation based on the IDID traceable four-paramete r MDRD equation. [facility] BMP GFR - >60 mL/min/1.73 m2 11/28 NA [facility] BMP Sex assigned at Male 11/28 NA [facility] BNPep BNP B-Natriuretic Peptide 58 pg/mL - <=100 11/28 NA [facility] BNPep Sex assigned at Male 11/28 NA [facility] CBC WBC 8.9 K/uL 3.5 - 10.4 11/28 NA [facility] CBC RBC 4.60 M/uL 4.00 - 6.20 11/28 NA [facility] CBC HGB 13.7 gm/dL 14.0 - 18.0 11/28 L [facility] CBC HCT 40.7 % 42.0 - 52.0 11/28 L [facility] CBC MCV 88.5 fL 82.0 - 101.0 11/28 NA [facility] CBC MCH 29.7 pg 26.0 - 34.0 11/28 NA [facility] CBC MCHC 33.5 gm/dL 32.0 - 36.0 11/28 NA [facility] CBC RDW 15.3 % 11.0 - 15.0 11/28 H [facility] CBC PLT 109 K/uL 140 - 440 11/28 L [facility] CBC MPV 7.9 fL 7.4 - 11.4 11/28 NA [facility] CBC Manual Diff Y/N Man Diff 11/28 NA [facility] CBC Sex assigned at Male 11/28 NA [facility] CK+MBIF CK, Total 164 units/L 32 - 230 11/28 NA [facility] CK+MBIF Sex assigned at Male 11/28 [facility] [id number] LU SARS-CoV-2 Source Nasopharyng eal 11/28 NA [facility] [id number] LU Influenza A Agn Molecular Detected Not Detected 11/28 C CRITICAL TEST RESULTS REPORTING1. Result has been confirmed by repeat testing? Y/N Y2. Person Results Called To: Name / Title: Dr. Shahbaz Brandon. When Reported: a.Date/Time Reported: 11/28/2021 03:51 b. Who Reported Results: Name: Zechariah [email or web address]. TWO Patient identifiers Confirmed? Y/N Y5. Confirmed Read-back of patient information and Test results? Y/N YAssay performed by RT-PCR [facility] [id number] LU Influenza B Agn Molecular Not Detected Not Detected 11/28 NA Assay performed by RT-PCR [facility] [id number] LU SARS-CoV-2 Molecular Not Detected Not Detected 11/28 NA Assay performed by RT-PCRThis test was performed under U.S. Food and Drug Administratio n (FDA) Emergency use Authorization (EUA). This test has been validated but the FDAs independent review of this validation is pending. [facility] [id number] LU SARS-CoV-2 First test? No 11/28 NA [facility] [id number] IGOR Health Care Worker? No 11/28 NA [facility] [id number] IGOR SARS-CoV-2 Is the Patient Hospitalized? No 11/28 NA [facility] [id number] IGOR SARS-CoV-2 Is the Patient in ICU? No 11/28 NA [facility] [id number] IGOR Patient From [facility]? Yes 11/28 NA [facility] [id number] IGOR Symptomatic per CDC? Yes 11/28 NA [facility] [id number] IGOR SARS-CoV-2 Is the Patient ? No 11/28 NA [facility] [id number] IGOR Sex assigned at Male 11/28 NA [facility] MDiff Bands % 1 % - <=6 11/28 NA [place] [facility] Neutrophil Percent 64 % 40 - 80 11/28 NA [place] [facility] Neutrophil Absolute 5.8 K/uL 11/28 NA [place] [facility] Lymphocyte Percent 6 % 18 - 45 11/28 L [facility] Manual Lymphocyte Absolute 0.5 K/uL 11/28 NA [facility] Manual Monocyte Percent 27 % 3 - 12 11/28 H [facility] Manual Monocyte Absolute 2.4 K/uL 11/28 NA [facility] Manual Eosinophil Percent 2 % - <=7 11/28 NA [facility] Manual Eosinophil Absolute 0.2 K/uL 11/28 NA [facility] RBC Morphology Abnormal Normal 11/28 * [facility] Anisocytosis 1+ None 11/28 * [facility] Polychromasia 1+ None 11/28 * [facility] Sex assigned at Male 11/28 NA [facility] Magnesium Level 1.9 mg/dL 1.6 - 2.5 11/28 NA [facility] Sex assigned at Male 11/28 NA [facility] PT - Patient 32.7 sec 11.8 - 13.8 11/28 H [facility]ain [facility] PT PT - INR 3.41 11/28 NA INDICATION INR Prophylaxis for venous thrombosis and 2.0 - 3.0 treatment of pulmonary embolism Prevention of systemic embolism in patients with 2.0 - 3.0 atrial fibrillation, valvular heart disease,tissu e heart valves, bileaflet mechanical valve in aortic position, or acute myocardial infarction Certain patients with thrombosis and the 2.0 - 3.0 antiphospholi pid syndrome Mechanical prosthetic heart valves and prevention 2.5 - 3.5 of recurrent myocardial infarction [facility] PT Sex assigned at Male 11/28 NA [facility] PTT PTT - Patient 42 sec 21 - 34 11/28 [facility] PTT Sex assigned at Male 11/28 [facility] TROPHS Troponin I High Sensitivity 7 ng/L 0 - 20 11/28 NA Elevated TnI results can be seen in any condition resulting in myocardial cell damage. These include, but are not limited to myocardial infarction, myocarditis, trauma, cardiac surgery, and congestive heart failure. It may also be elevated in some patients with renal failure and pulmonary embolism. Please correlate results with all other clinical findings. In some cases, serial TnI testing may be helpful for interpretatio n. [facility] TROPHS Sex assigned at Male 11/28 NA [facility]ain [facility] C Blood C Blood Final:No growth at 5 days.Sex assigned at :Male 11/28 [facility] C Blood C Blood Final:No growth at 5 days.Sex assigned at :Male 11/28 [facility] Diagnostic Reports Report Value Date Source Chest 1 Vw Portable PROCEDURE: CHEST RAD IOGRAPH 1 VIEW REASON FOR EXAM: Pneumonia - confirmed. COMPARISON: 11/30/2021 TECHNIQUE: AP view of the chest was obtained. FINDINGS: Stable bibasilar pulmonary opacities, left worse than right. Redemonstrated elevated left hemidiaphragm. The cardiomediastinal silhouette is unchanged. There is no pneumothorax. IMPRESSION: Stable bibasilar pulmonary opacities, left worse than right. Signed by: Artemio Jo MD on 12/01/2021 06:58 HST 12/01/2021 [facility] 1 Vw Portable PROCEDURE: Chest 1 V w Portable HISTORY: Pneumonia - confirmed. COMPARISON: November 29, 2021 TECHNIQUE: Frontal radiograph of the chest obtained. Findings: LUNG PARENCHYMA: No change in bibasilar airspace disease. There is no overt pulmonary edema. HEART: Stable cardiomegaly present. PLEURA: No effusions or pneumothorax. MEDIASTINUM: Unremarkable. BONY THORAX: Unremarkable. LINES/TUBES: None. MISCELLANEOUS: Sternotomy wires are present. IMPRESSION: Stable cardiomegaly with no change in bibasilar airspace disease. Signed by: Collin Simpson on 11/30/2021 10:36 HST 11/30/2021 [place] [id number] Vw Portable PROCEDURE: CHEST RAD IOGRAPH, 1 VIEW REASON FOR EXAM: Shortness of Breath, Dyspnea, Hypoxia. Shortness of breath. COMPARISON: From the previous day TECHNIQUE: AP view of the chest was obtained. FINDINGS: Cardiac silhouette: Normal. Sternotomy wires overlie the cardiac silhouette. Mediastinum: Mediastinal contours are normal. Opacity: Patchy bibasilar airspace disease which appears to be worsening at the right lung base. There is also elevation of the left hemidiaphragm suggests a left diaphragmatic paralysis. Nodule: None. Effusion: None. IMPRESSION: Worsening bibasilar airspace disease Signed by: Alan Dubon MD on 11/29/2021 10:40 HST 11/29/2021 [facility] 1 Vw Portable PROCEDURE: CHEST RAD IOGRAPH 1 VIEW REASON FOR EXAM: Shortness of Breath TECHNIQUE: AP view of the chest was obtained COMPARISON: FINDINGS: Cardiac silhouette: Prominent. Prior sternotomy. Mediastinum: Mediastinal contours are normal. Opacity: Subsegmental atelectasis left lung base with elevation of left hemidiaphragm Nodule: None Effusion: None IMPRESSION: Atelectatic changes left lung base with elevation left hemidiaphragm. Signed by: Mackenzie Brown MD on 11/28/2021 05:06 HST 11/28/2021 [facility] Consultation Notes Results Value Date Source Portable XR Chest Views PROCEDURE: CHEST RADIOGRAPH 1 VIEW REASON FOR EXAM: Pneumonia - confirmed. COMPARISON: 11/30/2021 TECHNIQUE: AP view of the chest was obtained. FINDINGS: Stable bibasilar pulmonary opacities, left worse than right. Redemonstrated elevated left hemidiaphragm. The cardiomediastinal silhouette is unchanged. There is no pneumothorax. IMPRESSION: Stable bibasilar pulmonary opacities, left worse than right. Signed by: Artemio Jo MD on 12/01/2021 06:58 HST Final 12/01/2021 45 [facility] Pulmonology Progress Note Patient: LEANNE JARAMILLO Age: 76 years Legal Sex: MALE : 1945 Subjective 1. Doing better overall 2. Now comfortable on room air 3. No longer have any wheezing 4. Afebrile; no leukocytosis 5. all medications reviewed Objective NOTE: This note was generated with the assistance of a voice dictation system, using the [employer] Edition. Digital Color Press Operator errors may very well be present and uncorrected. We retained the right to modify this information in the event of errors without notice. Please contact me personally if clarification is required. Vital Signs (last 24 hrs) Last Charted Minimum Maximum Temp( F ) 97.9 (DEC 01 07:57 HST) 97.9 (NOV 30 20:00 HST) 98.1 (NOV 30 23:38 HST) Heart Rate 83 (DEC 01 07:59 HST) 74 (DEC 01 03:59 HST) 90 (NOV 30 19:45 HST) Resp Rate 19 (DEC 01 07:58 HST) 17 (NOV 30 12:05 HST) 20 (NOV 30 19:45 HST) SBP 124 (DEC 01 07:57 HST) 124 (DEC 01 07:57 HST) 139 (NOV 30 15:11 HST) DBP 78 (DEC 01 07:57 HST) 68 (DEC 01 03:59 HST) 85 (NOV 30 12:03 HST) SpO2 91 (DEC 01 07:59 HST) 90 (NOV 30 19:45 HST) 93 (NOV 30 12:05 HST) Labs (Last four charted values) WBC 9.0 (DEC 01) 10.2 (NOV 30) H 12.0 (NOV 29) 8.9 (NOV 18) Hgb 14.2 (DEC 01) L 13.9 (NOV 30) L 13.8 (NOV 29) L 13.7 (NOV 28) Hct 42.7 (DEC 01) L 41.3 (NOV 30) 42.2 (NOV 29) L 40.7 (NOV 18) Plt L 127 (DEC 01) L 121 (NOV 30) L 121 (NOV 29) L 109 (NOV 28) Na 143 (DEC 01) 138 (NOV 30) 140 (NOV 29) 136 (NOV 18) K 3.8 (DEC 01) 3.9 (NOV 30) 4.1 (NOV 29) 3.7 (NOV 18) CO2 H 34.6 (DEC 01) H 33.80 (NOV 30) 30.5 (NOV 29) 26.10 (NOV 18) Cl 101 (DEC 01) 99 (NOV 30) 102 (NOV 29) 100 (NOV 18) Cr L 0.8 (DEC 01) L 0.7 (NOV 30) L 0.7 (NOV 29) L 0.8 (NOV 18) BUN H 33 (DEC 01) H 33 (NOV 30) H 27 (NOV 29) H 26 (NOV 18) Glucose Random 90 (DEC 01) H 97 (NOV 30) H 115 (NOV 29) H 105 (NOV 18) Mg 1.9 (NOV 28) Ca 9.0 (DEC 01) 8.7 (NOV 30) 9.0 (NOV 29) 8.6 (NOV 18) PT H 25.1 (DEC 01) H 25.6 (NOV 30) H 26.6 (NOV 29) H 32.7 (NOV 28) INR 2.42 (DEC 01) 2.48 (NOV 30) 2.61 (NOV 19) 3.41 (NOV 18) PTT H 42 (NOV 18) Total CK 164 (NOV 28) Blood Gas Results (last 24 hours) No qualifying data available. General Diagnostic Result Type: Chest 1 Vw Portable Result Date: December 01, 2021 06:17 HST Reason For Exam: Pneumonia - confirmed REPORT: PROCEDURE: CHEST RADIOGRAPH 1 VIEWREASON FOR EXAM: Pneumonia - confirmed.COMPARISON: 11/30/2021 TECHNIQUE: AP view of the chest was obtained. FINDINGS: Stable bibasilar pulmonary opacities, left worse than right. Redemonstrated elevated left hemidiaphragm.The cardiomediastinal silhouette is unchanged. There is no pneumothorax. IMPRESSION: Stable bibasilar pulmonary opacities, left worse than right. Signed by: Artemio Jo MD on 12/01/2021 06:58 HST Vitals and Measurements T: 97.9 F HR: 83 RR: 19 BP: 124/78 SpO2: 91% O2 Delivery: Room air O2 Flow: 1L/min HT: 175.6 cm WT: 116.9 kg BMI: 38.2 kg/m2 Intake and Output as of 08:46 (24 hour periods starting at 06:00) 12/01/21 11/30/21 11/29/21 Intake mL 4 798 504 Output mL 0 0 2100 Fluid Balance 4 798 1594 Physical Exam General Appearance: Morbidly obese, elderly gentleman, on room air, Alert and Oriented; in NAD, no tachypnea Eye: Pupils are equal, round and reactive to light, Extraocular movements are intact HENT: Normocephalic, Oral mucosa is moist, No pharyngeal erythema, No sinus tenderness; Neck: Supple, Non-tender, No carotid bruit, No jugular venous distention, No lymphadenopathy Respiratory: lungs with diminished breath sounds, no crackles; no wheezing; Respirations are non-labored, Breath sounds are equal, Symmetrical chest wall expansion, No chest wall tenderness Cardiovascular: Normal rate, Regular rhythm, No murmur, No rub or gallop, Good pulses equal in all extremities. Gastrointestinal: Soft, Non-tender, Non-distended, Normal bowel sounds, no HSM Genitourinary: No costovertebral angle tenderness. Extremities: No clubbing/cyanosis/tenderness, and 3+ BLE pitting edema noted Musculoskeletal: Normal range of motion, Normal strength, No tenderness Integumentary: Warm, Dry, Butters, No skin lesions Neurologic: Alert, Oriented, Normal sensory, Normal motor function, No focal deficits Cognition and Speech: Oriented, Speech clear and coherent, Functional cognition intact. Psychiatric: Cooperative, Appropriate mood and affect, Normal judgment, Non-suicidal. Labs/Diagnostic Data: I personally reviewed all laboratory data and radiographic films as noted in this document PMH/PSH/Social Hx/FHx: unchanged ROS: 12 points system reviewed with the patient, and were all negative except for what was/were mentioned in the History of Present Illness Medications: see medication list Inpatient Medications Scheduled: albuterol-ipratrop 3-0.5 mg/3 mL Neb Soln 3 mL, INH, Q6H7 atorvastatin 20 mg Tab 20 mg 1 Tab, ORAL, DAILY azithromycin 250 mg Tab 250 mg 1 Tab, ORAL, DAILY dilTIAZem 120 mg/24 hours CD Cap 120 mg 1 Cap, ORAL, DAILY Flecainide 100 mg Tab 50 mg 0.5 Tab, ORAL, Q12H fluticasone-vilan 200-25 mcg/inh 1 Inhalation, INH, DAILY furosemide 10 mg/mL, 4 mL Inj 40 mg 4 mL, IV PUSH, BID guaiFENesin 600 mg ER Tab 600 mg 1 Tab, ORAL, BID oseltamivir 75 mg Cap 75 mg 1 Cap, ORAL, BID Pharmacy Consult Allergy Review, N/A, As directed predniSONE 50 mg Tab 50 mg 1 Tab, ORAL, DAILY umeclidinium 62.5 mcg/inh 62.5 mcg 1 Puff, INH, DAILY warfarin 5 mg Tab 5 mg 1 Tab, ORAL, DAILY warfarin pharmacy to dose Rx to dose, N/A, As directed Continuous: PRN: acetaminophen 325 mg Tab 650 mg 2 ea, ORAL, Q6H acetaminophen 325 mg Tab 650 mg 2 ea, ORAL, Q6H albuterol-ipratrop 3-0.5 mg/3 mL Neb Soln 3 mL, INH, [id number] Dextrose 50% Inj 50 mL Syr 25 mL, IV, As directed Dextrose 50% Inj 50 mL Syr 50 mL, IV, As directed glucagon 1 mg Inj SDV 1 mg, SUBQ, As directed Glucose 40% Oral Gel 15 gm 15 gm 37.5 mL, ORAL, As directed guaiFEN-dextro 100-10 mg/5 mL Liq 5 mL 10 mL, ORAL, Q4H hydrALAZINE 20 mg/mL, 1 mL Inj 10 mg 0.5 mL, IV PUSH, Q4H melatonin 3 mg Tab 3 mg 1 Tab, ORAL, QBedtime ondansetron 4 mg DT Tab 4 mg 1 Tab, ORAL, Q8HR senna 8.6 mg Tab 8.6 mg 1 Tab, ORAL, QBedtime Lab Results Labs All 24H Lab Results Date GFR - Non >60 mL/min/1.73m2 12/01/21 06:10 HST GFR - >60 mL/min/1.73m2 12/01/21 06:10 HST Auto Neutrophil Percent 67.8 % 12/01/21 06:10 HST Auto Neutrophil Absolute 6.1 K/uL 12/01/21 06:10 HST Auto Lymphocyte Percent 13.0 % (LOW) 12/01/21 06:10 HST Auto Lymphocyte Absolute 1.2 K/uL 12/01/21 06:10 HST Auto Monocyte Percent 19.0 % (HIGH) 12/01/21 06:10 HST Auto Monocyte Absolute 1.7 K/uL 12/01/21 06:10 HST Auto Basophil Percent 0.1 % 12/01/21 06:10 HST Auto Basophil Absolute 0.0 K/uL 12/01/21 06:10 HST Auto Eosinophil Percent 0.1 % 12/01/21 06:10 HST Auto Eosinophil Absolute 0.0 K/uL 12/01/21 06:10 HST WBC 9.0 K/uL 12/01/21 06:10 HST RBC 4.83 M/uL 12/01/21 06:10 HST HGB 14.2 gm/dL 12/01/21 06:10 HST HCT 42.7 % 12/01/21 06:10 HST MCV 88.4 fL 12/01/21 06:10 HST MCH 29.4 pg 12/01/21 06:10 HST MCHC 33.2 gm/dL 12/01/21 06:10 HST RDW 15.2 % (HIGH) 12/01/21 06:10 HST PLT 127 K/uL (LOW) 12/01/21 06:10 HST MPV 8.5 fL 12/01/21 06:10 HST Anisocytosis 1+ (ABNORMAL) 12/01/21 06:10 HST RBC Morphology Abnormal (ABNORMAL) 12/01/21 06:10 HST PT - Patient 25.1 sec (HIGH) 12/01/21 06:10 HST PT - INR 2.42 12/01/21 06:10 HST Sodium Level 143 mmol/L 12/01/21 06:10 HST Potassium Level 3.8 mmol/L 12/01/21 06:10 HST Chloride Level 101 mmol/L 12/01/21 06:10 HST CO2/Carbon Dioxide 34.6 mmol/L (HIGH) 12/01/21 06:10 HST Anion Gap 7 mmol/L 12/01/21 06:10 HST Glucose, Random 90 mg/dL 12/01/21 06:10 HST BUN 33 mg/dL (HIGH) 12/01/21 06:10 HST Creatinine 0.8 mg/dL (LOW) 12/01/21 06:10 HST BUN/Creat Ratio 41.2 12/01/21 06:10 HST Osmolality, Calculated 303 12/01/21 06:10 HST Calcium Level 9.0 mg/dL 12/01/21 06:10 HST Total Protein 6.4 gm/dL 12/01/21 06:10 HST Albumin Level 3.7 gm/dL 12/01/21 06:10 HST Globulin Level 2.7 gm/dL 12/01/21 06:10 HST A/G Ratio 1.4 - 12/01/21 06:10 HST Bilirubin, Total 0.6 mg/dL 12/01/21 06:10 HST AST 16 units/L 12/01/21 06:10 HST ALT 26 units/L 12/01/21 06:10 HST ALP 61 units/L 12/01/21 06:10 HST Assessment/Plan _ 1. Acute respiratory failure with hypoxia (Acute respiratory failure with hypoxia, J96.01) Full CODE STATUS now comfortable on room air Continue Incentive Spirometer device use Continue Aerobika oscillating device use Continue AccuPAP positive airway pressure device use 4 times daily Encourage ambulation Continue DuoNeb every 6 hours [id number] with addition to AccuPAP Continue with Breo Ellipta inhaler 200 mcg: Once daily Continue Incruse Ellipta inhaler daily Complete prednisone 50 mg daily x5 days; no tapering Continue Tamiflu for influenza Antibiotic therapy as being done Warfarin for history of DVT with partial removal of IVC filter Warfarin: Close monitoring due to potential for drug toxicity and side effects Home oxygen evaluation prior to discharge May need inflight supplemental oxygen if not able to come off supplemental oxygen here 2. COPD exacerbation (Chronic obstructive pulmonary disease with (acute) exacerbation, J44.1) 3. Influenza A (Influenza due to other identified influenza virus with other respiratory manifestations, J10.1) 4. Deep vein thrombosis (DVT) of lower extremity associated with air travel (Acute embolism and thrombosis of unspecified deep veins of unspecified lower extremity, I82.409) 5. Anticoagulated (group home (current) use of anticoagulants, Z79.01) 6. Morbid obesity (Morbid (severe) obesity due to excess calories, E66.01) 7. Paroxysmal atrial fibrillation (Paroxysmal atrial fibrillation, I48.0) Orders: albuterol-ipratropium (DuoNeb), = 3 mL, INH, Q6H7, NEB AMP, 11/30/21 10:06:00 HST umeclidinium (Incruse Ellipta), 62.5 mcg, INH, DAILY, POWDER, 11/30/21 10:04:00 HST Blood Gases Collection - RT Chest 1 Vw Portable Chest 1 Vw Portable Chest Physiotherapy Incentive Spirometry Treatment [facility]PPB [facility] Oximetry Continuous Pulse Oximetry Respiratory Therapy Communication Order Updraft Nebulizer Treatment [id number] Male 12/01/2021 [facility] Pulmonology Consultation Patient: LEANNE JARAMILLO Age: 76 years Legal Sex: MALE : 1945 Chief Complaint the patient states that he has been feeling SOB x 3 days and getting worse today. Hx COPD. Has has been having a cough with yellow sputum production. Denies fever, body aches, N/V/D, CP. History of Present Illness Patient is a 76-year-old male with a history of COPD, CHF, PE long in the past on Coumadin therapy who presents with shortness of breath. Patient is visiting from [place]. He states symptoms began 2 days ago with progressive worsening shortness of breath and wheezing. He states all symptoms are similar to when he has a COPD exacerbation although sometimes when he gets that he also gets fluid overloaded requiring IV diuresis. He denies any chest pain, no headache, no focal numbness or weakness. No sick contacts reported. He is fully vaccinated against COVID-19. He did state that he had a low-grade fever of 100.6 earlier this evening. He did take 2 Tylenol approximately 2 hours ago. The shortness of breath became worse and he activated EMS but when they arrived he refused to be transported he started to feel better. They were monitoring his oxygen saturation and noted that he would desat into the mid 80s at home which finally prompted him to come into the ER. He reports that he is also had a productive cough of yellow sputum over the last 2 days. No recent steroid use. No other complaints reported.. 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 He was having yellowish sputum production but otherwise denies any chills, myalgia, nausea or vomiting. He apparently is visiting from [place], gotten his influenza vaccine and COVID booster vaccination about 2 weeks prior to arrival here. He arrived here on 11/17/2021, and developed the symptoms about 3 days prior to being seen in emergency room. Developed a low-grade fever up to 100.6 F prior to admission, took Tylenol x2 tablet with no improvement. In the emergency room, he was noted to have pulse oximetry in the mid 80s on room air, and was taken to the emergency room for further evaluation. Lactate was normal and INR was 3.4. Positive for influenza by nasopharyngeal test. Received Solu-Medrol, Lasix, and Tamiflu along with 3 nebulizer treatment prior to admission. Pulmonary consultation requested to further assist management of this patient with COPD and exacerbation, associated with positive influenza. Review of Systems ROS: 12 points system reviewed with the patient, and were all negative except for what was/were mentioned in the History of Present Illness Physical Exam Vitals and Measurements T: 98.0 F HR: 80 RR: 17 BP: 142/83 SpO2: 93% O2 Delivery: Nasal cannula O2 Flow: 1L/min HT: 175.6 cm WT: 116.3 kg BMI: 38.2 kg/m2 General Appearance: Morbidly obese, elderly gentleman, on nasal cannula, Alert and Oriented; in NAD, no tachypnea Eye: Pupils are equal, round and reactive to light, Extraocular movements are intact HENT: Normocephalic, Oral mucosa is moist, No pharyngeal erythema, No sinus tenderness; Neck: Supple, Non-tender, No carotid bruit, No jugular venous distention, No lymphadenopathy Respiratory: lungs with diminished breath sounds, no crackles; scattered expiratory wheezing; Respirations are non-labored, Breath sounds are equal, Symmetrical chest wall expansion, No chest wall tenderness Cardiovascular: Normal rate, Regular rhythm, No murmur, No rub or gallop, Good pulses equal in all extremities. Gastrointestinal: Soft, Non-tender, Non-distended, Normal bowel sounds, no HSM Genitourinary: No costovertebral angle tenderness. Extremities: No clubbing/cyanosis/tenderness, and 3+ BLE pitting edema noted Musculoskeletal: Normal range of motion, Normal strength, No tenderness Integumentary: Warm, Dry, Butters, No skin lesions Neurologic: Alert, Oriented, Normal sensory, Normal motor function, No focal deficits Cognition and Speech: Oriented, Speech clear and coherent, Functional cognition intact. Psychiatric: Cooperative, Appropriate mood and affect, Normal judgment, Non-suicidal. Labs/Diagnostic Data: I personally reviewed all laboratory data and radiographic films as noted in this document PMH/PSH/Social Hx/FHx: As noted ROS: 12 points system reviewed with the patient, and were all negative except for what was/were mentioned in the History of Present Illness Medications: see medication list Assessment/Plan _ 1. Acute respiratory failure with hypoxia (Acute respiratory failure with hypoxia, J96.01) Discussion: Full CODE STATUS Supplemental oxygen maintain pulse oximetry 88 to 92% ABG on room air Chest x-ray Incentive Spirometer device use Aerobika oscillating device use AccuPAP positive airway pressure device use 4 times daily Encourage ambulation Add DuoNeb every 6 hours [id number] with addition to AccuPAP Continue with Breo Ellipta inhaler daily Add Incruse Ellipta inhaler daily Complete prednisone 50 mg daily x5 days Continue Tamiflu for influenza Antibiotic therapy as being done Warfarin for history of DVT with partial removal of IVC filter Home oxygen evaluation prior to discharge May need inflight supplemental oxygen if not able to come off supplemental oxygen here 2. COPD exacerbation (Chronic obstructive pulmonary disease with (acute) exacerbation, J44.1) 3. Influenza A (Influenza due to other identified influenza virus with other respiratory manifestations, J10.1) 4. Deep vein thrombosis (DVT) of lower extremity associated with air travel (Acute embolism and thrombosis of unspecified deep veins of unspecified lower extremity, I82.409) 5. Anticoagulated (group home (current) use of anticoagulants, Z79.01) 6. Morbid obesity (Morbid (severe) obesity due to excess calories, E66.01) 7. Paroxysmal atrial fibrillation (Paroxysmal atrial fibrillation, I48.0) Orders: albuterol-ipratropium (DuoNeb), = 3 mL, INH, Q6H7, NEB AMP, 11/30/21 10:06:00 HST umeclidinium (Incruse Ellipta), = 1 Inhalation, INH, DAILY, 11/30/21 10:04:00 HST Blood Gases Collection - RT Chest 1 Vw Portable Chest 1 Vw Portable Chest Physiotherapy Incentive Spirometry Treatment IPPB Treatment Oximetry Continuous Pulse Oximetry Respiratory Therapy Communication Order Allergies Augmentin (vomiting, dizziness) Problem List Active Problems No qualifying data Inactive Problems No qualifying data Medications Inpatient acetaminophen, 650 mg, 2 ea, ORAL, Q6H, PRN acetaminophen, 650 mg, 2 ea, ORAL, Q6H, PRN Allergy Documented, Allergy Review, N/A, As directed atorvastatin, 20 mg, 1 Tab, ORAL, DAILY azithromycin, 250 mg, 1 Tab, ORAL, DAILY Breo Ellipta 200 mcg-25 mcg/inh inhalation powder, 1 Inhalation, INH, DAILY Coumadin, 4 mg, 2 Tab, ORAL, DAILY Dextrose 50% Inj 50 mL, 25 mL, IV, As directed, PRN Dextrose 50% Inj 50 mL, 50 mL, IV, As directed, PRN dilTIAZem CD (24 hour), 120 mg, 1 Cap, ORAL, DAILY DuoNeb, 3 mL, INH, [id number], PRN flecainide, 50 mg, 0.5 Tab, ORAL, Q12H furosemide, 40 mg, 4 mL, IV PUSH, BID glucagon, 1 mg, SUBQ, As directed, PRN glucose 40% oral gel, 15 gm, 37.5 mL, ORAL, As directed, PRN guaiFENesin, 600 mg, 1 Tab, ORAL, BID hydrALAZINE, 10 mg, 0.5 mL, IV PUSH, Q4H, PRN melatonin, 3 mg, 1 Tab, ORAL, QBedtime, PRN ondansetron, 4 mg, 1 Tab, ORAL, Q8HR, PRN predniSONE, 50 mg, 1 Tab, ORAL, DAILY Robitussin DM, 10 mL, ORAL, Q4H, PRN senna, 8.6 mg, 1 Tab, ORAL, QBedtime, PRN Tamiflu, 75 mg, 1 Cap, ORAL, BID warfarin pharmacy to dose, Rx to dose, N/A, As directed Home atorvastatin 20 mg oral tablet, 20 mg, 1 Tab, ORAL, DAILY DilTIAZem (Eqv-Cardizem CD) 120 mg/24 hours oral capsule, extended release, 120 mg, 1 Cap, ORAL, DAILY flecainide 50 mg oral tablet, 50 mg, 1 Tab, ORAL, Q12H furosemide 40 mg oral tablet, 40 mg, 1 Tab, ORAL, BID Klor-Con 10 mEq oral tablet, extended release, 10 mEq, 1 Tab, ORAL, DAILY multivitamin oral, 1 Tab, ORAL, DAILY PREPACK Albuterol (0.83 mg/mL) 2.5mg/3mL #6, 2.5 mg, 3 mL, INH, Q4H, PRN Senna, 1 Tab, ORAL, DAILY warfarin 5 mg oral tablet, 5 mg, 1 Tab, ORAL, QSuMWF warfarin 5 mg oral tablet, 7.5 mg, 1.5 Tab, ORAL, QTThSa Wixela Inhub 500 mcg-50 mcg inhalation powder, 1 Inhalation, INH, BID Lab Results Labs (Last four charted values) WBC 10.2 (NOV 30) H 12.0 (NOV 29) 8.9 (NOV 18) Hgb L 13.9 (NOV 30) L 13.8 (NOV 19) L 13.7 (OCT 18) Hct L 41.3 (NOV 20) 42.2 (NOV 19) L 40.7 (OCT 18) Plt L 121 (NOV 20) L 121 (NOV 19) L 109 (NOV 18) Na 138 (NOV 20) 140 (NOV 19) 136 (OCT 18) K 3.9 (NOV 20) 4.1 (NOV 19) 3.7 (OCT 18) CO2 H 33.80 (NOV 20) 30.5 (OCT 19) 26.10 (OCT 18) Cl 99 (NOV 20) 102 (NOV 19) 100 (NOV 18) Cr L 0.7 (OCT 20) L 0.7 (NOV 29) L 0.8 (NOV 28) BUN H 33 (NOV 30) H 27 (NOV 29) H 26 (NOV 28) Glucose Random H 97 (NOV 30) H 115 (NOV 29) H 105 (NOV 28) Mg 1.9 (NOV 28) Ca 8.7 (NOV 30) 9.0 (NOV 29) 8.6 (NOV 28) PT H 25.6 (NOV 30) H 26.6 (NOV 29) H 32.7 (NOV 28) INR 2.48 (NOV 30) 2.61 (NOV 29) 3.41 (NOV 28) PTT H 42 (NOV 28) Total CK 164 (NOV 28)Blood Gas Results (last 24 hours) No qualifying data available. General Diagnostic Result Type: Chest 1 Vw Portable Result Date: November 29, 2021 09:59 HST Reason For Exam: Shortness of Breath, Dyspnea, Hypoxia REPORT: PROCEDURE: CHEST RADIOGRAPH, 1 VIEWREASON FOR EXAM: Shortness of Breath, Dyspnea, Hypoxia. Shortness of breath. COMPARISON: From the previous dayTECHNIQUE: AP view of the chest was obtained. FINDINGS: Cardiac silhouette: Normal. Sternotomy wires overlie the cardiac silhouette.Mediastinum: Mediastinal contours are normal.Opacity: Patchy bibasilar airspace disease which appears to be worsening at the right lung base. There is also elevation of the left hemidiaphragm suggests a left diaphragmatic paralysis.Nodule: None.Effusion: None. IMPRESSION: Worsening bibasilar airspace disease Signed by: Alan Dubon MD on 11/29/2021 10:40 HST Social History Abuse/Intent to Harm CSSRS Risk Level: No risk (0-24) CSSRS Suicide screening: Not screened: Clinical Judgement and Non-BH CSSRS Suicide screening ED: Not screened: Clinical Judgement and Non-BH *Alcohol Screen How often do you have a drink containing alcohol? Never (0). How many standard drinks containing alcohol do you have on a typical day? Never (0). How often do you have six or more drinks on one occasion? Never (0). Ready to change: N/A. *Home/Environment Screen Living Situation: Home/Independent. *Nutrition Screen No (0) Decreased appetite:. None (0), N/A. (Pt was able to answer Questions 1 and 2) (0), Nutritional Risks: No nutritional risk triggers identified. *Substance Abuse Screen Do you have concerns about substance abuse for yourself or in your household? No. *Tobacco Use Screen Is there a smoker in the household? No. Do you have concerns about tobacco use in household? No. Over the past 30 days, what and how much have you smoked? Never (less than 100 in lifetime). Over the past 30 days, what has been your smokeless tobacco use? Never. Are you ready to quit? N/A. [id number] Male 11/30/2021 [facility] Progress Note Patient: AMY JARAMILLO Age: 76 years Legal Sex: MALE : 1945 Chart is generated by Tool Maker Bench, Ivon Valdes, for Dr. Rincon Date of Service 11/30/2021 08:25 HST Subjective Patient says he feels better today, breathing easier. He is on 1 liter of O2. Objective Vitals and Measurements T: 98.0 F HR: 80 RR: 17 BP: 142/83 SpO2: 93% O2 Delivery: Nasal cannula O2 Flow: 1L/min HT: 175.6 cm WT: 116.3 kg BMI: 38.2 kg/m2 Intake and Output as of 08:25 (24 hour periods starting at 06:00) 11/30/21 11/29/21 11/28/21 Intake mL 4 504 1440 Output mL 0 2100 2875 Fluid Balance 4 -0236 1435 Physical Exam General Appearance: No acute distress. HEENT: Normocephalic. PERRL. Normal tympanic membranes. No nasal discharge. Oral cavity and pharynx normal. Teeth and gingiva in good general condition. Neck supple, non-tender without lymphadenopathy, masses or thyromegaly. Cardiac: Normal rate and rhythm. There is no peripheral edema, cyanosis or pallor. Lungs: Patient has diminished breath sounds throughout, coughing with deep inspiration, coarse breath sounds in the upper lung richter, no appreciable wheezes at this time Abdomen: Positive bowel sounds. Soft, non-distended, non-tender. No guarding or rebound. No masses. Musculoskeletal: No joint deformity, erythema, or tenderness. Full ROM all joints. Normal gait. Neurological: Normal motor, sensory, and mental status examination. Reflexes 2+ throughout. Skin: Skin normal color, texture and turgor with no rash present. Genitalia: Deferred. Psychiatric: Demonstrated good judgment and reason and normal affect during examination. Inpatient Medications Scheduled: atorvastatin 20 mg Tab 20 mg 1 Tab, ORAL, DAILY azithromycin 250 mg Tab 250 mg 1 Tab, ORAL, DAILY dilTIAZem 120 mg/24 hours CD Cap 120 mg 1 Cap, ORAL, DAILY Flecainide 100 mg Tab 50 mg 0.5 Tab, ORAL, Q12H fluticasone-vilan 200-25 mcg/inh 1 Inhalation, INH, DAILY furosemide 10 mg/mL, 4 mL Inj 40 mg 4 mL, IV PUSH, BID guaiFENesin 600 mg ER Tab 600 mg 1 Tab, ORAL, BID oseltamivir 75 mg Cap 75 mg 1 Cap, ORAL, BID Pharmacy Consult Allergy Review, N/A, As directed predniSONE 50 mg Tab 50 mg 1 Tab, ORAL, DAILY warfarin 2 mg Tab 4 mg 2 Tab, ORAL, DAILY warfarin pharmacy to dose Rx to dose, N/A, As directed Continuous: PRN: acetaminophen 325 mg Tab 650 mg 2 ea, ORAL, Q6H acetaminophen 325 mg Tab 650 mg 2 ea, ORAL, Q6H albuterol-ipratrop 3-0.5 mg/3 mL Neb Soln 3 mL, INH, [id number] Dextrose 50% Inj 50 mL Syr 25 mL, IV, As directed Dextrose 50% Inj 50 mL Syr 50 mL, IV, As directed glucagon 1 mg Inj SDV 1 mg, SUBQ, As directed Glucose 40% Oral Gel 15 gm 15 gm 37.5 mL, ORAL, As directed guaiFEN-dextro 100-10 mg/5 mL Liq 5 mL 10 mL, ORAL, Q4H hydrALAZINE 20 mg/mL, 1 mL Inj 10 mg 0.5 mL, IV PUSH, Q4H melatonin 3 mg Tab 3 mg 1 Tab, ORAL, QBedtime ondansetron 4 mg DT Tab 4 mg 1 Tab, ORAL, Q8HR senna 8.6 mg Tab 8.6 mg 1 Tab, ORAL, QBedtime Lab Results Labs All 24H Lab Results Date GFR - Non >60 mL/min/1.73m2 11/30/21 05:11 HST GFR - >60 mL/min/1.73m2 11/30/21 05:11 HST Auto Neutrophil Percent 71.4 % 11/30/21 05:11 HST Auto Neutrophil Absolute 7.3 K/uL 11/30/21 05:11 HST Auto Lymphocyte Percent 10.6 % (LOW) 11/30/21 05:11 HST Auto Lymphocyte Absolute 1.1 K/uL 11/30/21 05:11 HST Auto Monocyte Percent 17.8 % (HIGH) 11/30/21 05:11 HST Auto Monocyte Absolute 1.8 K/uL 11/30/21 05:11 HST Auto Basophil Percent 0.1 % 11/30/21 05:11 HST Auto Basophil Absolute 0.0 K/uL 11/30/21 05:11 HST Auto Eosinophil Percent 0.1 % 11/30/21 05:11 HST Auto Eosinophil Absolute 0.0 K/uL 11/30/21 05:11 HST WBC 10.2 K/uL 11/30/21 05:11 HST RBC 4.66 M/uL 11/30/21 05:11 HST HGB 13.9 gm/dL (LOW) 11/30/21 05:11 HST HCT 41.3 % (LOW) 11/30/21 05:11 HST MCV 88.7 fL 11/30/21 05:11 HST MCH 29.8 pg 11/30/21 05:11 HST MCHC 33.5 gm/dL 11/30/21 05:11 HST RDW 15.3 % (HIGH) 11/30/21 05:11 HST PLT 121 K/uL (LOW) 11/30/21 05:11 HST MPV 7.9 fL 11/30/21 05:11 HST Anisocytosis 1+ (ABNORMAL) 11/30/21 05:11 HST RBC Morphology Abnormal (ABNORMAL) 11/30/21 05:11 HST PT - Patient 25.6 sec (HIGH) 11/30/21 05:11 HST PT - INR 2.48 11/30/21 05:11 HST Sodium Level 138 mmol/L 11/30/21 05:11 HST Potassium Level 3.9 mmol/L 11/30/21 05:11 HST Chloride Level 99 mmol/L 11/30/21 05:11 HST CO2/Carbon Dioxide 33.80 mmol/L (HIGH) 11/30/21 05:11 HST Anion Gap 5 mmol/L 11/30/21 05:11 HST Glucose, Random 97 mg/dL (HIGH) 11/30/21 05:11 HST BUN 33 mg/dL (HIGH) 11/30/21 05:11 HST Creatinine 0.7 mg/dL (LOW) 11/30/21 05:11 HST BUN/Creat Ratio 47.1 11/30/21 05:11 HST Osmolality, Calculated 293 11/30/21 05:11 HST Calcium Level 8.7 mg/dL 11/30/21 05:11 HST Total Protein 6.3 gm/dL (LOW) 11/30/21 05:11 HST Albumin Level 3.8 gm/dL 11/30/21 05:11 HST Globulin Level 2.5 gm/dL 11/30/21 05:11 HST A/G Ratio 1.5 - 11/30/21 05:11 HST Bilirubin, Total 0.6 mg/dL 11/30/21 05:11 HST AST 17 units/L 11/30/21 05:11 HST ALT 21 units/L 11/30/21 05:11 HST ALP 56 units/L 11/30/21 05:11 HST Assessment/Plan _ 1. Acute respiratory failure with hypoxia (Acute respiratory failure with hypoxia, J96.01) 2. COPD exacerbation (Chronic obstructive pulmonary disease with (acute) exacerbation, J44.1) 3. Influenza A (Influenza due to other identified influenza virus with other respiratory manifestations, J10.1) 4. Deep vein thrombosis (DVT) of lower extremity associated with air travel (Acute embolism and thrombosis of unspecified deep veins of unspecified lower extremity, I82.409) 5. Anticoagulated (group home (current) use of anticoagulants, Z79.01) 6. Morbid obesity (Morbid (severe) obesity due to excess calories, E66.01) 7. Paroxysmal atrial fibrillation (Paroxysmal atrial fibrillation, I48.0) SOB (shortness of breath) (SOB (shortness of breath), 00502) Plan: Cont breathing treatments Cont steroids started back on diuretics wean off O2 if possible Cont Azithromycin Reviewed chest x-ray hopefully dc soon consult Dr. Morris, pt may need in-flight O2 for flight home Signing over care to Dr. Kay tomorrow morning. Quality Measures Charting performed by Ivon Wan, for Dr. Rincon The scribe's documentation has been prepared under my direction and personally reviewed by me in its entirety. I confirm that the note above accurately reflects all work, treatment, and medical decision making performed by me. [id number] Male 11/30/2021 [facility] Progress Note Patient: AMY JARAMILLO Age: 76 years Legal Sex: MALE : 1945 Chart is generated by Ivon Wan, for Dr. Rincon Date of Service 11/29/2021 09:28 HST Subjective patient says that breathing treatments are not helping. still short of breath when sitting and talking. having BM, no diarrhea. Objective Vitals and Measurements T: 98.6 F HR: 82 RR: 18 BP: 130/62 SpO2: 92% O2 Delivery: Oxy mask O2 Flow: 4L/min HT: 175.6 cm WT: 118.3 kg BMI: 38.2 kg/m2 Intake and Output as of 09:28 (24 hour periods starting at 06:00) 11/29/21 11/28/21 11/27/21 Intake mL 0 1440 56 Output mL 0 2875 600 Fluid Balance 0 -1435 -544 Physical Exam General Appearance: No acute distress. HEENT: Normocephalic. PERRL. Normal tympanic membranes. No nasal discharge. Oral cavity and pharynx normal. Teeth and gingiva in good general condition. Neck supple, non-tender without lymphadenopathy, masses or thyromegaly. Cardiac: Normal rate and rhythm. There is no peripheral edema, cyanosis or pallor. Lungs: Patient has diminished breath sounds throughout, coughing with deep inspiration, coarse breath sounds in the upper lung richter, no appreciable wheezes at this time Abdomen: Positive bowel sounds. Soft, non-distended, non-tender. No guarding or rebound. No masses. Musculoskeletal: No joint deformity, erythema, or tenderness. Full ROM all joints. Normal gait. Neurological: Normal motor, sensory, and mental status examination. Reflexes 2+ throughout. Skin: Skin normal color, texture and turgor with no rash present. Genitalia: Deferred. Psychiatric: Demonstrated good judgment and reason and normal affect during examination. Inpatient Medications Scheduled: atorvastatin 20 mg Tab 20 mg 1 Tab, ORAL, DAILY dilTIAZem 120 mg/24 hours CD Cap 120 mg 1 Cap, ORAL, DAILY Flecainide 100 mg Tab 50 mg 0.5 Tab, ORAL, Q12H fluticasone-vilan 200-25 mcg/inh 1 Inhalation, INH, DAILY oseltamivir 75 mg Cap 75 mg 1 Cap, ORAL, BID Pharmacy Consult Allergy Review, N/A, As directed predniSONE 50 mg Tab 50 mg 1 Tab, ORAL, DAILY warfarin 2 mg Tab 4 mg 2 Tab, ORAL, DAILY warfarin pharmacy to dose Rx to dose, N/A, As directed Continuous: PRN: acetaminophen 325 mg Tab 650 mg 2 ea, ORAL, Q6H acetaminophen 325 mg Tab 650 mg 2 ea, ORAL, Q6H albuterol-ipratrop 3-0.5 mg/3 mL Neb Soln 3 mL, INH, [id number] albuterol-ipratrop 3-0.5 mg/3 mL Neb Soln 3 mL, NEB, Q6H Dextrose 50% Inj 50 mL Syr 25 mL, IV, As directed Dextrose 50% Inj 50 mL Syr 50 mL, IV, As directed glucagon 1 mg Inj SDV 1 mg, SUBQ, As directed Glucose 40% Oral Gel 15 gm 15 gm 37.5 mL, ORAL, As directed guaiFEN-dextro 100-10 mg/5 mL Liq 5 mL 10 mL, ORAL, Q4H hydrALAZINE 20 mg/mL, 1 mL Inj 10 mg 0.5 mL, IV PUSH, Q4H labetalol 5 mg/mL, 4 mL Inj 10 mg 2 mL, IV PUSH, Q4H melatonin 3 mg Tab 3 mg 1 Tab, ORAL, QBedtime ondansetron 4 mg DT Tab 4 mg 1 Tab, ORAL, Q8HR senna 8.6 mg Tab 8.6 mg 1 Tab, ORAL, QBedtime Lab Results Labs All 24H Lab Results Date GFR - Non >60 mL/min/1.73m2 11/29/21 04:58 HST GFR - >60 mL/min/1.73m2 11/29/21 04:58 HST Auto Neutrophil Percent 73.6 % 11/29/21 04:58 HST Auto Neutrophil Absolute 8.8 K/uL 11/29/21 04:58 HST Auto Lymphocyte Percent 5.5 % (LOW) 11/29/21 04:58 HST Auto Lymphocyte Absolute 0.7 K/uL 11/29/21 04:58 HST Auto Monocyte Percent 20.9 % (HIGH) 11/29/21 04:58 HST Auto Monocyte Absolute 2.5 K/uL 11/29/21 04:58 HST Auto Basophil Percent 0.0 % 11/29/21 04:58 HST Auto Basophil Absolute 0.0 K/uL 11/29/21 04:58 HST Auto Eosinophil Percent 0.0 % 11/29/21 04:58 HST Auto Eosinophil Absolute 0.0 K/uL 11/29/21 04:58 HST WBC 12.0 K/uL (HIGH) 11/29/21 04:58 HST RBC 4.69 M/uL 11/29/21 04:58 HST HGB 13.8 gm/dL (LOW) 11/29/21 04:58 HST HCT 42.2 % 11/29/21 04:58 HST MCV 89.9 fL 11/29/21 04:58 HST MCH 29.3 pg 11/29/21 04:58 HST MCHC 32.6 gm/dL 11/29/21 04:58 HST RDW 15.1 % (HIGH) 11/29/21 04:58 HST PLT 121 K/uL (LOW) 11/29/21 04:58 HST MPV 8.5 fL 11/29/21 04:58 HST Anisocytosis 1+ (ABNORMAL) 11/29/21 04:58 HST RBC Morphology Abnormal (ABNORMAL) 11/29/21 04:58 HST PT - Patient 26.6 sec (HIGH) 11/29/21 04:58 HST PT - INR 2.61 11/29/21 04:58 HST Sodium Level 140 mmol/L 11/29/21 04:58 HST Potassium Level 4.1 mmol/L 11/29/21 04:58 HST Chloride Level 102 mmol/L 11/29/21 04:58 HST CO2/Carbon Dioxide 30.5 mmol/L 11/29/21 04:58 HST Anion Gap 8 mmol/L 11/29/21 04:58 HST Glucose, Random 115 mg/dL (HIGH) 11/29/21 04:58 HST BUN 27 mg/dL (HIGH) 11/29/21 04:58 HST Creatinine 0.7 mg/dL (LOW) 11/29/21 04:58 HST BUN/Creat Ratio 38.6 11/29/21 04:58 HST Osmolality, Calculated 296 11/29/21 04:58 HST Calcium Level 9.0 mg/dL 11/29/21 04:58 HST Total Protein 6.6 gm/dL 11/29/21 04:58 HST Albumin Level 3.8 gm/dL 11/29/21 04:58 HST Globulin Level 2.8 gm/dL 11/29/21 04:58 HST A/G Ratio 1.4 - 11/29/21 04:58 HST Bilirubin, Total 0.5 mg/dL 11/29/21 04:58 HST AST 18 units/L 11/29/21 04:58 HST ALT 21 units/L 11/29/21 04:58 HST ALP 59 units/L 11/29/21 04:58 HST Assessment/Plan _ 1. Acute respiratory failure with hypoxia (Acute respiratory failure with hypoxia, J96.01) 2. COPD exacerbation (Chronic obstructive pulmonary disease with (acute) exacerbation, J44.1) 3. Influenza A (Influenza due to other identified influenza virus with other respiratory manifestations, J10.1) 4. Deep vein thrombosis (DVT) of lower extremity associated with air travel (Acute embolism and thrombosis of unspecified deep veins of unspecified lower extremity, I82.409) 5. Anticoagulated (group home (current) use of anticoagulants, Z79.01) 6. Morbid obesity (Morbid (severe) obesity due to excess calories, E66.01) 7. Paroxysmal atrial fibrillation (Paroxysmal atrial fibrillation, I48.0) SOB (shortness of breath) (SOB (shortness of breath), 49397) Plan: Chest x-ray Start Azithromycin Cont breathing treatments Cont steroids Supplemental O2 as needed - goal sat 88-92 Advance care planning including the explanation and discussion of advance directives such as standard forms (with completion of such forms, when performed) by the physician or other qualified health professional; first 30 minutes, [id number] with the patient, family member(s) and/or surrogate. Quality Measures Charting performed by Tool Maker Bench, Ivon Valdes, for Dr. Rincon The scribe's documentation has been prepared under my direction and personally reviewed by me in its entirety. I confirm that the note above accurately reflects all work, treatment, and medical decision making performed by me. [id number] Male 11/29/2021 [facility] ED Physician Notes Patient: LEANNE JARAMILLO Age: 76 years Legal Sex: Male : 1945 Author: MD Randy, Shahbaz Trujillo Associated Diagnosis: Acute respiratory failure with hypoxia; COPD exacerbation; Influenza A Basic Information MSEI MD/SOCIAL SERVICES COUNSELOR/PA Time Patient Seen face to face: Date and time 11/28/2021 02:54:23 . History source: Patient, significant other. Arrival mode: Private vehicle. History limitation: None. Additional information: Chief Complaint from Nursing Triage Note : Reason for visit history 11/28/2021 03:01 HST the patient states that he has been feeling SOB x 3 days and getting worse today. Hx COPD. Has has been having a cough with yellow sputum production. Denies fever, body aches, N/V/D, CP. . History of Present Illness The patient presents with Chief Complaint: Shortness of breath History of present illness: Patient is a 76-year-old male with a history of COPD, CHF, PE long in the past on Coumadin therapy who presents with shortness of breath. Patient is visiting from [place]. He states symptoms began 2 days ago with progressive worsening shortness of breath and wheezing. He states all symptoms are similar to when he has a COPD exacerbation although sometimes when he gets that he also gets fluid overloaded requiring IV diuresis. He denies any chest pain, no headache, no focal numbness or weakness. No sick contacts reported. He is fully vaccinated against COVID-19. He did state that he had a low-grade fever of 100.6 earlier this evening. He did take 2 Tylenol approximately 2 hours ago. The shortness of breath became worse and he activated EMS but when they arrived he refused to be transported he started to feel better. They were monitoring his oxygen saturation and noted that he would desat into the mid 80s at home which finally prompted him to come into the ER. He reports that he is also had a productive cough of yellow sputum over the last 2 days. No recent steroid use. No other complaints reported.. Review of Systems Constitutional symptoms: no fever. Respiratory symptoms: Shortness of breath, cough. Cardiovascular symptoms: no chest pain. Gastrointestinal symptoms: no abdominal pain. Neurologic symptoms: no headache. Additional review of systems information: All other systems reviewed and otherwise negative. Health Status Allergies: Allergic Reactions (All) Severity Not Documented Augmentin- Vomiting and dizziness.. Medications: (Selected) Inpatient Medications Ordered Allergy Documented: Allergy Review, 11/28/21 3:06:30 HST, N/A DuoNeb: = 3 mL, INH, [id number], PRN, Wheezing, STAT, NEB AMP, 11/28/21 3:03:00 HST, 3 Time(s)/Dose(s), Stop date Limited # of times Documented Medications Documented Breo Ellipta 200 mcg-25 mcg/inh inhalation powder: 0 Refill(s), Maintenance DilTIAZem (Eqv-Cardizem CD) 120 mg/24 hours oral capsule, extended release: 0 Refill(s), Maintenance Klor-Con 10 mEq oral tablet, extended release: = 1 Tab, ORAL, DAILY, 0 Refill(s), Maintenance atorvastatin 20 mg oral tablet: = 1 Tab, ORAL, DAILY, 0 Refill(s), Maintenance flecainide 50 mg oral tablet: = 1 Tab, ORAL, Q12H, 0 Refill(s), Maintenance furosemide 40 mg oral tablet: = 1 Tab, ORAL, BID, 0 Refill(s), Maintenance warfarin 5 mg oral tablet: = 1 Tab, ORAL, DAILY, 0 Refill(s), Maintenance. Immunizations: Up to date. Past Medical/ Family/ Social History Medical history Triage Medical History. Medical history: All Problems Bronchitis / [id number] / Confirmed COPD (chronic obstructive pulmonary disease) / [id number] / Confirmed Deep vein thrombosis (DVT) of lower extremity associated with air travel / [id number] / Confirmed Pulmonary embolism / [id number] / Confirmed. Surgical history: Triage Surgical History. Surgical history: No active procedure history items have been selected or recorded.. Social history: Triage Social History. Social history: Social and Psychosocial Habits Abuse/Intent to Harm CSSRS Suicide screening: Not screened: Clinical Judgement and Non-BH CSSRS Suicide screening ED: Not screened: Clinical Judgement and Non-BH *Alcohol Screen *How often do you have a drink containing alcohol? Monthly or less (1) *Substance Abuse Screen Current or past use? Never *Tobacco Use Screen Is there a smoker in the household? No *Over the past 30 days, what and how much have you smoked? Former smoker, quit more than 30 days ago . Physical Examination Vital Signs Vital Signs 11/28/2021 03:01 HST Temperature (F) 98.8 DegF Normal Apical Heart Rate 94 bpm Normal Respiratory rate 25 br/min HI Systolic BP 134 mmHg Normal Diastolic BP 77 mmHg Normal Pulse Oximetry 88 % <LLOW Oxygen delivery Room air BP location Left arm . Include ht/wt from flowsheet : Measurements 11/28/2021 03:01 HST Weight (kg) 117.8 kg Dose calculation weight (kg) 117.8 kg Body Mass Index 38.2 kg/m2 HI Weight measured method Bed scale Height/Length (cm) 175.6 cm [place] Body Weight Calculated 71.008 . Oxygen saturation: 88 %. Hypoxic on room air. General: Alert, no acute distress. Skin: Warm, dry. Head: Normocephalic, atraumatic. Neck: Supple, trachea midline, no tenderness, no JVD. Eye: Pupils are equal, round and reactive to light, extraocular movements are intact. Ears, nose, mouth and throat: Oral mucosa moist, no pharyngeal erythema or exudate. Cardiovascular: Regular rate and rhythm, No murmur, Normal peripheral perfusion. Respiratory: Respirations are non-labored, breath sounds are equal, Coarse intermittent expiratory wheezes with crackles at the bases bilaterally. Chest wall: No tenderness, No deformity. Back: Nontender. Musculoskeletal: Normal ROM, normal strength, no tenderness, no deformity, Asymmetric right lower extremity edema 3+, left lower extremity edema 2+. Baseline per patient as he always has swelling greater in his right than his left.. Gastrointestinal: Soft, Nontender, Non distended, Normal bowel sounds, No organomegaly. Neurological: Alert and oriented to person, place, time, and situation, No focal neurological deficit observed, CN II-XII intact, normal sensory observed, normal motor observed, normal speech observed. Lymphatics: No lymphadenopathy. Psychiatric: Cooperative, appropriate mood and affect. Medical Decision Making Differential Diagnosis: COPD exacerbation, CHF exacerbation, pneumonia. Documents reviewed: Emergency department nurses' notes. Electrocardiogram: Time 11/28/2021 03:00:00, EP Interp, Normal sinus rhythm rate of 93, normal intervals and QTc, intermittent monofocal PVCs, right bundle branch block with nonspecific ST-T abnormalities, no ST elevations or acute signs of ischemia, no previous EKG to compare. Results review: Lab results : Lab 11/28/2021 03:22 HST BG - Site OTHER - BG - Modified [place]ron Test NA - VBG - pH 7.390 - Normal VBG - pCO2 46.6 mmHg Normal VBG - pO2 45 mmHg HI VBG - HCO3 28.2 mmol/L HI VBG - TCO2 30 mmol/L HI VBG - BE 2 mmol/L Normal VBG - O2 Sat 80.0 % HI POCT - Lactate/Lactic Acid 0.90 mmol/L Normal 11/28/2021 03:19 HST WBC 8.9 K/uL Normal RBC 4.60 M/uL Normal HGB 13.7 gm/dL LOW HCT 40.7 % LOW MCV 88.5 fL Normal MCH 29.7 pg Normal MCHC 33.5 gm/dL Normal RDW 15.3 % HI PLT 109 K/uL LOW MPV 7.9 fL Normal Bands % 1 % Normal Manual Neutrophil Percent 64 % Normal Manual Lymphocyte Percent 6 % LOW Manual Monocyte Percent 27 % HI Manual Eosinophil Percent 2 % Normal Manual Neutrophil Absolute 5.8 K/uL NA Manual Lymphocyte Absolute 0.5 K/uL NA Manual Monocyte Absolute 2.4 K/uL NA Manual Eosinophil Absolute 0.2 K/uL NA RBC Morphology Abnormal Anisocytosis 1+ Polychromasia 1+ Sodium Level 136 mmol/L Normal Potassium Level 3.7 mmol/L Normal Chloride Level 100 mmol/L Normal CO2/Carbon Dioxide 26.10 mmol/L Normal Anion Gap 10 mmol/L Normal Glucose, Random 105 mg/dL HI BUN 26 mg/dL HI Creatinine 0.8 mg/dL LOW GFR - Non >60 mL/min/1.73m2 NA GFR - >60 mL/min/1.73m2 NA BUN/Creat Ratio 32.5 NA Osmolality, Calculated 287 NA Calcium Level 8.6 mg/dL Normal Magnesium Level 1.9 mg/dL Normal CK, Total 164 units/L Normal Troponin I High Sensitivity 7 ng/L Normal BNP B-Natriuretic Peptide 58 pg/mL Normal PT - Patient 32.7 sec HI PT - INR 3.41 NA PTT - Patient 42 sec HI Influenza A Agn Molecular Detected Influenza B Agn Molecular Not Detected Patient From [facility]? Yes SARS-CoV-2 Molecular Not Detected SARS-CoV-2 First test? No Health Care Worker? No SARS-CoV-2 Is the Patient Hospitalized? No SARS-CoV-2 Is the Patient in ICU? No SARS-CoV-2 Is the Patient ? No SARS-CoV-2 Source Nasopharyngeal Symptomatic per CDC? Yes . Chest X-Ray: General Diagnostic Result Type: Chest 1 Vw Portable Result Date: November 28, 2021 03:54 HST Reason For Exam: Shortness of Breath REPORT: PROCEDURE: CHEST RADIOGRAPH 1 VIEWREASON FOR EXAM: Shortness of BreathTECHNIQUE: AP view of the chest was obtained COMPARISON: FINDINGS: Cardiac silhouette: Prominent. Prior sternotomy. Mediastinum: Mediastinal contours are normal.Opacity: Subsegmental atelectasis left lung base with elevation of left hemidiaphragm Nodule: NoneEffusion: None IMPRESSION: Atelectatic changes left lung base with elevation left hemidiaphragm. Signed by: Mackenzie Brown MD on 11/28/2021 05:06 HST. Notes: Patient is a 76-year-old male with history of CHF, COPD who presents with respiratory distress. On arrival he was hypoxic at 88% on room air with increased work of breathing. Rhonchi/crackles and wheezes throughout. He was aggressively treated with IV magnesium, IV Solu-Medrol, duo nebs as well as IV Lasix. Screening labs demonstrated no significant leukocytosis, normal blood chemistry, negative cardiac injury markers. He is on Coumadin and he is therapeutic with an INR of 3.4. COVID-19 was negative but he is positive for influenza A. Chest x-ray demonstrated mild pulmonary congestion but no focal infiltrate. EKG was nonischemic. The patient was treated for 2 hours in the emergency department with no significant improvement in his oxygenation still requiring supplementation. Given that he is visiting and has no doctor to follow-up with here believe that he does warrant hospitalization at this time. Anticipate once he diuresis and the steroids kick in he most likely will improve. He was discussed with the admitting hospitalist who agrees to admit him at this time. He is hemodynamically stable at time of admission.. Reexamination/ Reevaluation Time: 11/28/2021 04:30:00 . Vital signs results included from flowsheet : Vital Signs 11/28/2021 04:03 HST Heart Rate Monitored 89 bpm Normal Respiratory rate 21 br/min HI Pulse Oximetry 88 % <LLOW Oxygen delivery Room air BP location Left arm Course: improving. Notes: Mildly improved but still requiring oxygen supplementation. Given comorbid conditions, hypoxia and overall state of health the patient will be admitted for further treatment. Time: 11/28/2021 04:49:00 . Vital signs results included from flowsheet : Vital Signs 11/28/2021 04:46 HST Heart Rate Monitored 96 bpm Normal Respiratory rate 22 br/min HI Systolic BP 127 mmHg Normal Diastolic BP 73 mmHg Normal Pulse Oximetry 97 % Oxygen delivery Nasal cannula Oxygen flow 2 L/min MAP Non-Invasive 91 mmHg Normal BP location Left arm Course: improving. Notes: Hemodynamically stable on supplemental oxygen at time of admission. Procedure Critical care note Total time: 60 minutes spent engaged in work directly related to patient care and/ or available for direct patient care, exclusive of procedure time. Critical condition(s) addressed for impending deterioration include: respiratory. Associated risk factors: hypoxia. Management: bedside assessment, supervision of care, Interpretation (chest x-ray, blood gases, electrocardiogram, blood pressure, cardiac output measures), Interventions hemodynamic management, Case review (nursing, family, Hospitalist), Alternate history family. Treatment response: improved. Performed by: self. Notes: Management included bedside assessment, supervision of care, history and review of records, and interpretation of diagnostic tests. The treatment of this patient required direct personal management, and withdrawal of, or failure to initiate these interventions on an urgent basis would have likely resulted in threat to life. Impression and Plan Diagnosis Acute respiratory failure with hypoxia COPD exacerbation Influenza A Calls-Consults - 11/28/2021 04:47:00 , MD Cristian, Darius Kimble, Hospitalist, history of present illness, physical exam, laboratory and diagnostic results and medical management discussed. Plan Condition: Improved, Stable. Disposition: Admit time 11/28/2021 04:51:00, Admit to Inpatient Telemetry Unit, MD Foster John W. Counseled: Patient, Regarding diagnosis, Regarding diagnostic results, Regarding treatment plan, Patient indicated understanding of instructions. [id number] Male 11/28/2021 [facility] Discharge Summaries Results Value Date Source Discharge Summary Patient: AMY JARAMILLO Age: 76 years Legal Sex: MALE : 1945 Admission Information Admit Date: 11/27/21 20:51 Reason for Admission: CHRONIC OBSTRUCTIVE PULMONARY DISEASE (J44.1), INFLUENZA A (J10.1) Physicians Involved With Care Admitting: MD Sergey, Waldemar Johnson Attending: MD Sergey, Waldemar Johnson Consulting: MD Alexandra,MPH, Noman Primary Care: MD CARMEN Final Diagnosis _ 1. Acute respiratory failure with hypoxia (Acute respiratory failure with hypoxia, J96.01) 2. COPD exacerbation (Chronic obstructive pulmonary disease with (acute) exacerbation, J44.1) 3. Influenza A (Influenza due to other identified influenza virus with other respiratory manifestations, J10.1) 4. Deep vein thrombosis (DVT) of lower extremity associated with air travel (Acute embolism and thrombosis of unspecified deep veins of unspecified lower extremity, I82.409) 5. Anticoagulated (terminal worker (current) use of anticoagulants, Z79.01) 6. Morbid obesity (Morbid (severe) obesity due to excess calories, E66.01) 7. 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 Patient reports 2 weeks prior to departing on vacation from [place] that he received his influenza vaccine with COVID booster. He arrived here on 17 November, and then 3 days ago with aforementioned symptoms. After initial treatments in the ER the patient is feeling better, but continues to desat with ambulation, requiring supplemental O2 to maintain appropriate O2 saturation. Otherwise, patient denies fever or chills, myalgias. in the emergency department patient was afebrile, heart rate in the 80s and 90s, blood pressure normal, respiratory rate as high as 25 with an O2 saturation of 88% on room air. Patient CBC was largely unremarkable with the exception of a mild thrombocytopenia, metabolic panel demonstrated an elevated BUN to creatinine, 26-0.8 respectively ratio 32.5. Lactate was normal. INR 3.4. Influenza positive. Patient received Lasix 40 mg x 2, mag 2 g, Solu-Medrol 125, 75 mg of Tamiflu as well as 3 duo nebs in the emergency department. Course Patient was admitted and Dr Morris from pulmonary was consulted he was started on Tamiflu for Influenza A. Steroids and Azithromycin. He improved over the next couple of days and was off Oxygen for over 24 hrs prior to discharge. He was feeling a lot better. He will be discharged on Tamiflu, Mucinex and Albuterol in addition to his regular meds. He will f/u with his PCP in 1 week. Advance care planning including the explanation and discussion of advance directives such as standard forms (with completion of such forms, when performed) by the physician or other qualified health professional; first 30 minutes, [id number] with the patient, family member(s) and/or surrogate FULL CODE Physical Exam Vitals and Measurements T: 97.9 F HR: 87 RR: 16 BP: 124/78 SpO2: 93% O2 Delivery: Room air O2 Flow: 1L/min FiO2: 21% HT: 175.6 cm WT: 116.9 kg BMI: 38.2 kg/m2 Discharge Plan Discharge Disposition/Location Discharge Date: _ Discharge Location: _ Medications Reconciliation Last Documented: 11/28/2021 New Prescription guaiFENesin (guaiFENesin 600 mg oral tablet, extended release)1 Tabs Oral TWICE DAILY for 5 Days. Refills: 0. oseltamivir (Tamiflu 75 mg oral capsule)1 Capsules Oral TWICE DAILY for 2 Days. Refills: 0. predniSONE (predniSONE 50 mg oral tablet)1 Tabs Oral DAILY for 5 Days. Refills: 0. Changed albuterol (Albuterol (Eqv-Proventil HFA) 90 mcg/inh inhalation aerosol)2 Puffs Deep breath EVERY 6 HOURS for 30 Days. Refills: 0. albuterol (PREPACK Albuterol (0.83 mg/mL) 2.5mg/3mL #6)3 Milliliter Deep breath EVERY 4 HOURS as needed Shortness of breath/wheezing. dilTIAZem (DilTIAZem (Eqv-Cardizem CD) 120 mg/24 hours oral capsule, extended release)1 Capsules Oral DAILY. warfarin (warfarin 5 mg oral tablet)1.5 Tabs Oral Every Saturday, , and Saturday. warfarin (warfarin 5 mg oral tablet)1 Tabs Oral Every Saturday, Saturday, Saturday and Saturday. Unchanged atorvastatin (atorvastatin 20 mg oral tablet)1 Tabs Oral DAILY. flecainide (flecainide 50 mg oral tablet)1 Tabs Oral EVERY 12 HOURS. fluticasone-salmeterol (Wixela Inhub 500 mcg-50 mcg inhalation powder)1 Inhalation Deep breath TWICE DAILY. furosemide (furosemide 40 mg oral tablet)1 Tabs Oral TWICE DAILY. multivitamin (multivitamin oral)1 Tabs Oral DAILY. OTC. potassium chloride (Klor-Con 10 mEq oral tablet, extended release)1 Tabs Oral DAILY. senna (Senna)1 Tabs Oral DAILY. OTC. Time Spent Coordinating Discharge > 38 min Lab Results (Last three charted values) WBC 9.0 (DEC 01) 10.2 (NOV 30) H 12.0 (NOV 29) Hgb 14.2 (DEC 01) L 13.9 (NOV 30) L 13.8 (NOV 29) Hct 42.7 (DEC 01) L 41.3 (NOV 30) 42.2 (NOV 29) Plt L 127 (DEC 01) L 121 (NOV 30) L 121 (NOV 29) Na 143 (DEC 01) 138 (NOV 30) 140 (NOV 29) K 3.8 (DEC 01) 3.9 (NOV 30) 4.1 (NOV 29) CO2 H 34.6 (DEC 01) H 33.80 (NOV 20) 30.5 (NOV 29) Cl 101 (DEC 01) 99 (NOV 30) 102 (NOV 29) Cr L 0.8 (DEC 01) L 0.7 (NOV 20) L 0.7 (NOV 29) BUN H 33 (DEC 01) H 33 (NOV 20) H 27 (NOV 29) Glu Rndm 90 (DEC 01) H 97 (NOV 20) H 115 (NOV 29) Mg 1.9 (NOV 28) Ca 9.0 (DEC 01) 8.7 (NOV 20) 9.0 (NOV 29) PT H 25.1 (DEC 01) H 25.6 (NOV 20) H 26.6 (NOV 29) INR 2.42 (DEC 01) 2.48 (NOV 30) 2.61 (NOV 29) PTT H 42 (NOV 28) Total CK 164 (NOV 28) Images General Diagnostic Result Type: Chest 1 Vw Portable Result Date: December 01, 2021 06:17 HST Reason For Exam: Pneumonia - confirmed REPORT: PROCEDURE: CHEST RADIOGRAPH 1 VIEWREASON FOR EXAM: Pneumonia - confirmed.COMPARISON: 11/30/2021 TECHNIQUE: AP view of the chest was obtained. FINDINGS: Stable bibasilar pulmonary opacities, left worse than right. Redemonstrated elevated left hemidiaphragm.The cardiomediastinal silhouette is unchanged. There is no pneumothorax. IMPRESSION: Stable bibasilar pulmonary opacities, left worse than right. Signed by: Artemio Jo MD on 12/01/2021 06:58 HST Discharge Home f/u with PCP 1 week Cardiac diet [id number] Male 12/01/2021 [facility] History and Physicals Results Value Date Source Admission H & P 11/28/2021 [facility] History and Physical Patient: LIBAN JARAMILLO Age: 76 years Legal Sex: MALE : 1945 Date of Service 11/28/2021 05:06 HST Chief Complaint the patient states that he has been feeling SOB x 3 days and getting worse today. Hx COPD. Has has been having a cough with yellow sputum production. Denies fever, body aches, N/V/D, CP. History of Present Illness 76-year-old male with a medical history notable for DVT, IVC filter with migration and partial removal on warfarin, COPD presenting to the emergency department with progressive shortness of breath for 3 days in duration. Patient reports 2 weeks prior to departing on vacation from [place] that he received his influenza vaccine with COVID booster. He arrived here on 17 November, and then 3 days ago with aforementioned symptoms. After initial treatments in the ER the patient is feeling better, but continues to desat with ambulation, requiring supplemental O2 to maintain appropriate O2 saturation. Otherwise, patient denies fever or chills, myalgias. in the emergency department patient was afebrile, heart rate in the 80s and 90s, blood pressure normal, respiratory rate as high as 25 with an O2 saturation of 88% on room air. Patient CBC was largely unremarkable with the exception of a mild thrombocytopenia, metabolic panel demonstrated an elevated BUN to creatinine, 26-0.8 respectively ratio 32.5. Lactate was normal. INR 3.4. Influenza positive. Patient received Lasix 40 mg x 2, mag 2 g, Solu-Medrol 125, 75 mg of Tamiflu as well as 3 duo nebs in the emergency department. CODE STATUS: Full Advance care planning including the explanation and discussion of advance directives such as standard forms (with completion of such forms, when performed) by the physician or other qualified health professional; first 30 minutes, [id number] with the patient, family member(s) and/or surrogate Review of Systems Constitutional: No fevers or chills, no recent weight changes EENT: No headaches, no vision changes, no recent hearing changes, no nasal discharge or congestion, no sore throat Respiratory: As stated above Cardiovascular: No chest pains or palpitations Gastrointestinal: denies epigastric abdominal pain, nausea, vomiting, no diarrhea, no constipation, no hematemesis, no hematochezia, no melena Genitourinary: No dysuria or hematuria, no unusual color or odor of urine Musculoskeletal: No back or joint pains Skin: No rashes Lymphatic: No swelling or pain in his lymph nodes Hematologic/Lymphatic symptoms: No bleeding or clotting problems Allergy/immunologic symptoms: No recent Infections Neurologic: No headaches, no numbness or tingling, no weakness, no confusion, no speech problems, no double or blurred vision Psychiatric: No suicidal ideations, no depression, no anxiety Additional review of systems information: All other systems reviewed and otherwise negative. Physical Exam Vitals and Measurements T: 98.8 F HR: 94(Apical) HR: 96(Monitored) RR: 22 BP: 127/73 SpO2: 97% O2 Delivery: Nasal cannula O2 Flow: 2L/min HT: 175.6 cm WT: 117.8 kg(Dose Calc Wt.) WT: 117.8 kg BMI: 38.2 kg/m2 General Appearance: No acute distress. HEENT: Normocephalic. PERRL. Normal tympanic membranes. No nasal discharge. Oral cavity and pharynx normal. Teeth and gingiva in good general condition. Neck supple, non-tender without lymphadenopathy, masses or thyromegaly. Cardiac: Normal rate and rhythm. There is no peripheral edema, cyanosis or pallor. Lungs: Patient has diminished breath sounds throughout, coughing with deep inspiration, coarse breath sounds in the upper lung richter, no appreciable wheezes at this time Abdomen: Positive bowel sounds. Soft, non-distended, non-tender. No guarding or rebound. No masses. Musculoskeletal: No joint deformity, erythema, or tenderness. Full ROM all joints. Normal gait. Neurological: Normal motor, sensory, and mental status examination. Reflexes 2+ throughout. Skin: Skin normal color, texture and turgor with no rash present. Genitalia: Deferred. Psychiatric: Demonstrated good judgment and reason and normal affect during examination. Assessment/Plan 76-year-old male for COPD exacerbation secondary due to influenza _ 1. Acute respiratory failure with hypoxia (Acute respiratory failure with hypoxia, J96.01) 2. COPD exacerbation (Chronic obstructive pulmonary disease with (acute) exacerbation, J44.1) Ordered: Admission Status 3. Influenza A (Influenza due to other identified influenza virus with other respiratory manifestations, J10.1) Admit to MedSurg/observation Continue nebs every 4 hours while awake Continue prednisone 50 daily No antibiotics at this time Start Tamiflu Continue Breo Ellipta Incentive spirometry every 2 hours while awake Supplemental O2 as needed Ordered: Admission Status 4. Deep vein thrombosis (DVT) of lower extremity associated with air travel (Acute embolism and thrombosis of unspecified deep veins of unspecified lower extremity, I82.409) Continue warfarin Daily INR checks with goal between 2 and 3 SOB (shortness of breath) (SOB (shortness of breath), 06820) Orders: acetaminophen (acetaminophen), 650 mg, ORAL, Q6H, PRN, Pain-Mild (Scale 1-3), TAB, 11/28/21 5:00:00 HST acetaminophen (acetaminophen), 650 mg, ORAL, Q6H, PRN, Fever, TAB, 11/28/21 5:00:00 HST albuterol-ipratropium (DuoNeb), = 3 mL, INH, [id number], PRN, Shortness of breath, NEB AMP, 11/28/21 4:58:00 HST albuterol-ipratropium (albuterol-ipratopium 3-0.5 mg/3 mL inh soln (DuoNeb)), = 3 mL, NEB, Q6H, PRN, Shortness of breath, NEB AMP, 11/28/21 5:00:00 HST atorvastatin (atorvastatin), 20 mg, ORAL, DAILY, TAB, 11/28/21 9:00:00 HST dilTIAZem (dilTIAZem CD (24 hour)), 120 mg, ORAL, DAILY, CR CAP, 11/28/21 9:00:00 HST flecainide (flecainide), 50 mg, ORAL, Q12H, TAB, 11/28/21 9:00:00 HST fluticasone-vilanterol (Breo Ellipta 200 mcg-25 mcg/inh inhalation powder), 1 inh, INH, DAILY, POWDER, 11/28/21 9:00:00 HST glucagon (glucagon), 1 mg, SUBQ, As directed, PRN, Blood Glucose, INJ, 11/28/21 5:00:00 HST glucose (Dextrose 50% Inj 50 mL), = 50 mL, IV, As directed, PRN, Blood Glucose, INJ, 11/28/21 5:00:00 HST glucose (Dextrose 50% Inj 50 mL), = 25 mL, IV, As directed, PRN, Blood Glucose, INJ, 11/28/21 5:00:00 HST glucose (glucose 40% oral gel), 15 gm, ORAL, As directed, PRN, Blood Glucose, GEL, 11/28/21 5:00:00 HST hydrALAZINE (hydrALAZINE), 10 mg, IV PUSH, Q4H, PRN, Other (see comment), INJ, 11/28/21 5:00:00 HST labetalol (labetalol), 10 mg, IV PUSH, Q4H, PRN, Blood Pressure, STAT, INJ, 11/28/21 5:00:00 HST melatonin (melatonin), 3 mg, ORAL, QBedtime, PRN, Insomnia, TAB, 11/28/21 5:00:00 HST ondansetron (ondansetron), 4 mg, ORAL, Q8HR, PRN, Nausea/Vomiting, DT TAB, 11/28/21 5:00:00 HST oseltamivir (Tamiflu), 75 mg, ORAL, BID, CAP, 11/28/21 9:00:00 HST predniSONE (predniSONE), 50 mg, ORAL, DAILY, TAB, 11/28/21 5:56:00 HST senna (senna), 8.6 mg, ORAL, QBedtime, PRN, Constipation, TAB, 11/28/21 5:00:00 HST warfarin (warfarin), 5 mg, ORAL, DAILY, Indication = DVT Treatment, TAB, 11/28/21 17:00:00 HST CBC w Differential Chair Comprehensive Metabolic Panel CMP Fingerstick/Capillary Blood Sugar Full Code Head of Bed Position Hypoglycemia Protocol Incentive Spirometry Treatment Isolation Notify Physician Prothrombin Time PT w INR Saline Lock Sodium Restricted Diet Vital Signs VTE Prophylaxis Guidelines Weigh Patient Allergies Augmentin (vomiting, dizziness) Problem List Active Problems No qualifying data Inactive Problems No qualifying data Medications Inpatient acetaminophen, 650 mg, ORAL, Q6H, PRN acetaminophen, 650 mg, ORAL, Q6H, PRN albuterol-ipratopium 3-0.5 mg/3 mL inh soln (DuoNeb), 3 mL, NEB, Q6H, PRN Allergy Documented, Allergy Review, N/A, As directed atorvastatin, 20 mg, 1 Tab, ORAL, DAILY Breo Ellipta 200 mcg-25 mcg/inh inhalation powder, 1 inh, INH, DAILY Dextrose 50% Inj 50 mL, 25 mL, IV, As directed, PRN Dextrose 50% Inj 50 mL, 50 mL, IV, As directed, PRN dilTIAZem CD (24 hour), 120 mg, ORAL, DAILY DuoNeb, 3 mL, INH, [id number], PRN flecainide, 50 mg, 1 Tab, ORAL, Q12H glucagon, 1 mg, SUBQ, As directed, PRN glucose 40% oral gel, 15 gm, ORAL, As directed, PRN hydrALAZINE, 10 mg, IV PUSH, Q4H, PRN labetalol, 10 mg, IV PUSH, Q4H, PRN melatonin, 3 mg, ORAL, QBedtime, PRN ondansetron, 4 mg, ORAL, Q8HR, PRN predniSONE, 50 mg, ORAL, DAILY senna, 8.6 mg, ORAL, QBedtime, PRN Tamiflu, 75 mg, ORAL, BID warfarin, 5 mg, 1 Tab, ORAL, DAILY Home atorvastatin 20 mg oral tablet, 20 mg, 1 Tab, ORAL, DAILY Breo Ellipta 200 mcg-25 mcg/inh inhalation powder DilTIAZem (Eqv-Cardizem CD) 120 mg/24 hours oral capsule, extended release flecainide 50 mg oral tablet, 50 mg, 1 Tab, ORAL, Q12H furosemide 40 mg oral tablet, 40 mg, 1 Tab, ORAL, BID Klor-Con 10 mEq oral tablet, extended release, 10 mEq, 1 Tab, ORAL, DAILY warfarin 5 mg oral tablet, 5 mg, 1 Tab, ORAL, DAILY Lab Results Labs All 24H Lab Results Date POCT - Lactate/Lactic Acid 0.90 mmol/L 11/28/21 03:22 HST Influenza A Agn Molecular Detected (Critical) 11/28/21 03:19 HST Influenza B Agn Molecular Not Detected 11/28/21 03:19 HST GFR - Non >60 mL/min/1.73m2 11/28/21 03:19 HST GFR - >60 mL/min/1.73m2 11/28/21 03:19 HST Manual Neutrophil Percent 64 % 11/28/21 03:19 HST Manual Neutrophil Absolute 5.8 K/uL 11/28/21 03:19 HST Manual Lymphocyte Percent 6 % (LOW) 11/28/21 03:19 HST Manual Lymphocyte Absolute 0.5 K/uL 11/28/21 03:19 HST Manual Monocyte Percent 27 % (HIGH) 11/28/21 03:19 HST Manual Monocyte Absolute 2.4 K/uL 11/28/21 03:19 HST Manual Eosinophil Percent 2 % 11/28/21 03:19 HST Manual Eosinophil Absolute 0.2 K/uL 11/28/21 03:19 HST SARS-CoV-2 Molecular Not Detected 11/28/21 03:19 HST SARS-CoV-2 Source Nasopharyngeal 11/28/21 03:19 HST Health Care Worker? No 11/28/21 03:19 HST Patient From Congregate Area? Yes 11/28/21 03:19 HST Symptomatic per CDC? Yes 11/28/21 03:19 HST SARS-CoV-2 First test? No 11/28/21 03:19 HST SARS-CoV-2 Is the Patient Hosp No 11/28/21 03:19 HST SARS-CoV-2 Is the Patient Preg No 11/28/21 03:19 HST SARS-CoV-2 Is the Patient in I No 11/28/21 03:19 HST BG - Modified Bayron Test NA - 11/28/21 03:22 HST WBC 8.9 K/uL 11/28/21 03:19 HST RBC 4.60 M/uL 11/28/21 03:19 HST HGB 13.7 gm/dL (LOW) 11/28/21 03:19 HST HCT 40.7 % (LOW) 11/28/21 03:19 HST MCV 88.5 fL 11/28/21 03:19 HST MCH 29.7 pg 11/28/21 03:19 HST MCHC 33.5 gm/dL 11/28/21 03:19 HST RDW 15.3 % (HIGH) 11/28/21 03:19 HST PLT 109 K/uL (LOW) 11/28/21 03:19 HST MPV 7.9 fL 11/28/21 03:19 HST VBG - pH 7.390 - 11/28/21 03:22 HST VBG - pCO2 46.6 mmHg 11/28/21 03:22 HST VBG - pO2 45 mmHg (HIGH) 11/28/21 03:22 HST VBG - HCO3 28.2 mmol/L (HIGH) 11/28/21 03:22 HST VBG - TCO2 30 mmol/L (HIGH) 11/28/21 03:22 HST VBG - BE 2 mmol/L 11/28/21 03:22 HST VBG - O2 Sat 80.0 % (HIGH) 11/28/21 03:22 HST BG - Site OTHER - 11/28/21 03:22 HST Anisocytosis 1+ (ABNORMAL) 11/28/21 03:19 HST Bands % 1 % 11/28/21 03:19 HST Polychromasia 1+ (ABNORMAL) 11/28/21 03:19 HST RBC Morphology Abnormal (ABNORMAL) 11/28/21 03:19 HST PT - Patient 32.7 sec (HIGH) 11/28/21 03:19 HST PT - INR 3.41 11/28/21 03:19 HST PTT - Patient 42 sec (HIGH) 11/28/21 03:19 HST Sodium Level 136 mmol/L 11/28/21 03:19 HST Potassium Level 3.7 mmol/L 11/28/21 03:19 HST Chloride Level 100 mmol/L 11/28/21 03:19 HST CO2/Carbon Dioxide 26.10 mmol/L 11/28/21 03:19 HST Anion Gap 10 mmol/L 11/28/21 03:19 HST Glucose, Random 105 mg/dL (HIGH) 11/28/21 03:19 HST BUN 26 mg/dL (HIGH) 11/28/21 03:19 HST Creatinine 0.8 mg/dL (LOW) 11/28/21 03:19 HST BUN/Creat Ratio 32.5 11/28/21 03:19 HST Osmolality, Calculated 287 11/28/21 03:19 HST Calcium Level 8.6 mg/dL 11/28/21 03:19 HST Magnesium Level 1.9 mg/dL 11/28/21 03:19 HST CK, Total 164 units/L 11/28/21 03:19 HST BNP B-Natriuretic Peptide 58 pg/mL 11/28/21 03:19 HST Troponin I High Sensitivity 7 ng/L 11/28/21 03:19 HST Social History Abuse/Intent to Harm CSSRS Suicide screening: Not screened: Clinical Judgement and Non-BH CSSRS Suicide screening ED: Not screened: Clinical Judgement and Non-BH *Alcohol Screen How often do you have a drink containing alcohol? Monthly or less (1). *Substance Abuse Screen Do you have concerns about substance abuse for yourself or in your household? No. Current or past use? Never. *Tobacco Use Screen Is there a smoker in the household? No. Over the past 30 days, what and how much have you smoked? Former smoker, quit more than 30 days ago. [id number] Male 11/28/2021 [facility] Vital Signs Vital Sign Value Date Comments Source Peripheral Pulse Rate 94 bpm 12/02/2021 45 [facility] Pulse Oximetry 90 % 12/02/2021 45 [facility] Respiratory rate 18 br/min 12/02/2021 45 [facility] Systolic BP 116 mm[Hg] 12/02/2021 45 [facility] Diastolic BP 69 mm[Hg] 12/02/2021 45 [facility] Mean BP 85 mm[Hg] 12/02/2021 45 [facility] Temperature (F) 97.8 [degF] 12/02/2021 45 [facility] Peripheral Pulse Rate 81 bpm 12/01/2021 45 [facility] Pulse Oximetry 92 % 12/01/[address] [facility] Respiratory rate 18 br/min 12/01/2021 45 [facility] Systolic BP 130 mm[Hg] 12/01/2021 45 [facility] Diastolic BP 83 mm[Hg] 12/01/2021 45 [facility] Mean BP 98 mm[Hg] 12/01/2021 45 [facility] Temperature (F) 97.9 [degF] 12/01/2021 45 [facility] Oxygen FiO2 21 % 12/01/2021 45 [facility] Respiratory rate 16 br/min 12/01/2021 45 [facility] Peripheral Pulse Rate 87 bpm 12/01/2021 45 [facility] Pulse Oximetry 93 % 12/01/[address] [facility] Oxygen FiO2 21 % 12/01/2021 45 [facility] Oxygen FiO2 21 % 12/01/2021 45 [facility] Temperature (F) 97.9 [degF] 12/01/2021 45 [facility] Systolic BP 124 mm[Hg] 12/01/2021 45 [facility] Diastolic BP 78 mm[Hg] 12/01/2021 45 [facility] Mean BP 93 mm[Hg] 12/01/2021 45 [facility] Weight (kg) 116.9 kg 12/01/2021 45 [facility] Oxygen flow 1 L/min 12/01/2021 45 [facility] Oxygen flow 1 L/min 11/30/2021 45 [facility] [place] [facility] flow 1 L/min 11/30/2021 45 [facility] [place] Weight (kg) 116.3 kg 11/30/2021 45 [facility] [place] Weight (kg) 118.3 kg 11/29/2021 45 [facility] [place] HeightLength (cm) 175.6 cm 11/28/2021 45 [facility] [place] Body Mass Index 38.2 kg/m2 11/28/2021 45 [facility] [place] Dose calculation weight (kg) 117.8 kg 11/28/2021 45 [facility] [place] Heart Rate Monitored 94 bpm 11/28/2021 45 [facility] [place] Heart Rate Monitored 93 bpm 11/28/2021 45 [facility] [place] Heart Rate Monitored 88 bpm 11/28/2021 45 [facility] [place] Apical Heart Rate 94 bpm 11/28/2021 45 [facility] [place] Dose calculation weight (kg) 117.8 kg 11/28/2021 45 [facility] [place] HeightLength (cm) 175.6 cm 11/28/2021 45 [facility] [place] Body Mass Index 38.2 kg/m2 11/28/2021 45 [facility] [place] [facility] Weight Calculated 71.008 11/28/2021 45 [facility] [place] Encounters Location Location Details Encounter Type Encounter Number Reason For Visit Attending Provider ADM Date DC Date Status Source 45 45 [facility] [place] Inpatient [id number] CHRONIC OBSTRUCTI VE PULMONARY DISEASE (J44.1), INFLUENZA A (J10.1) Elias Kay 11/28 Active [facility] [place] Procedures Procedure Code Date Perfomer Comments Source ROUTINE VENIPUNCTURE [id number] 12/01/2021 45 [facility] [place] ROUTINE VENIPUNCTURE [id number] 11/30/2021 45 [facility] [place] ROUTINE VENIPUNCTURE [id number] 11/29/2021 45 [facility] [place] ROUTINE VENIPUNCTURE [id number] 11/28/2021 45 [facility] [place] ROUTINE VENIPUNCTURE [id number] 11/28/2021 45 [facility] [place] Plan of Care Plan of Care Date Source Extracted from:Title: Hospit alist Discharge Note Author: MD Kay Tom-Oliver Date: 12/01/21 History of Present Illness 76-year-old male with a medical history notable for DVT, IVC filter with migration and partial r emoval o n warfarin, C [facility] p resenting to the emergency department with p rogressive shortness of breath for 3 days in duration. Patient reports 2 weeks prior to d eparting on vacation f rom [place] t hat he received his influenza vaccine with COVID booster. Musa hutchison arrived here on 17 November, a nd then 3 days ago with a forementioned symptoms. ?After initial treatments in the ER the patient is feeling better, but continues to desat w ith ambulation, requiring supplemental O2 to maintain appropriate O2 saturation. Otherwise, patient denies fever or chills, m yalgias. i n the emergency department patient was afebrile, heart rate in the 80s and 90s, blood pressure normal, respiratory rate as high as 25 with an O2 saturation of 88% on room air. P atient CBC was largely unremarkable with the exception of a mild thrombocytopenia, metabolic panel demonstrated an elevated BUN to creatinine, 26-0.8 respectively ratio 32.5. L actate was normal. I NR 3.4. I nfluenza positive. P atient received Lasix 40 mg x 2, mag 2 g, Solu-Medrol 125, 75 mg of Tamiflu as well as 3 duo nebs in the emergency department. Course Patient was admitted and Dr Morris from pulmonary was consulted he was started on Tamiflu for Influenza A. Steroids and Azithromycin. He improved over the next couple of days and was off Oxygen for over 24 hrs prior to discharge. He was feeling a lot better. He will be discharged on Tamiflu, Mucinex and Albuterol in addition to his regular meds. He will f/u with his PCP in 1 week. Advance care planning including the explanation and discussion of advance directives such as standard forms (with completion of such forms, when performed) by the physician or other qualified health professional; first 30 minutes, [id number] with the patient, family member(s) and/or surrogate FULL CODE Discharge Date: _ Discharge Location: _ Addendum by MD Rahul, [facility] on December 01 2021 12:57:56 HST Discharge Home f/u with PCP 1 week Cardiac diet Extracted from:Title: Shortness of breath Author: MD Randy, Shahbaz Trjuillo Date: 11/28/21 Impression and Plan Diagnosis Acute respiratory failure with hypoxia COPD exacerbation Influenza A Calls-Consults - 11/28/2021 04:47:00 , MD Cristian, Darius Kimble, Hospitalist, history of present illness, physical exam, laboratory and diagnostic results and medical management discussed. Plan Condition: Improved, Stable. Disposition: Admit time 11/28/2021 04:51:00, Admit to Inpatient Telemetry Unit, MD Cristian, Darius Lopez Counseled: Patient, Regarding diagnosis, Regarding diagnostic results, Regarding treatment plan, Patient indicated understanding of instructions. 12/02/[address] [place] [address] Social History Social History Date Source Social History TypeResponse Smoking Status Is there a smoker in the household? No; *Do you have concerns about tobacco use in household? No; Never (less than 100 in lifetime); Never; *Are you ready to quit? N/A entered on: 11/28/21 Sex Male [address] [place] [address] Social History TypeResponse Smoking Status Is there a smoker in the household? No; *Do you have concerns about tobacco use in household? No; Never (less than 100 in lifetime); Never; *Are you ready to quit? N/A entered on: 11/28/21 Sex Male [address] [place] [address] Social History TypeResponse Smoking Status Is there a smoker in the household? No; *Do you have concerns about tobacco use in household? No; Never (less than 100 in lifetime); Never; *Are you ready to quit? N/A entered on: 11/28/21 Sex Male [address] [place] [address]
[2024-10-08 13:29] LABS: Prothrombin Time Whole Bld POC 38.3 sec (11.1-13.5); ~PT, ~INR - Anti Coag Clinic 3.2 (0.9-1.1)
--- NOTE | 2024-10-08 13:33 | MHC.OFFVISCO ---
Intake Intake Visit Reasons: Anticoagulation Allergies albuterol Adverse Reaction (Intermediate, Verified 10/08/24 13:23) Palpitations amoxicillin (From Augmentin) Adverse Reaction (Intermediate, Verified 10/08/24 13:23) Nausea and Vomiting, dizziness clavulanic acid (From Augmentin) Adverse Reaction (Intermediate, Verified 10/08/24 13:23) Nausea and Vomiting, dizziness Medication List - Last Reconciled 10/08/24 by Lottie Avila RN acetaminophen 1,000 mg PO Q6H PRN acetazolamide 250 mg PO DAILY atorvastatin 20 mg PO DAILY azithromycin 250 mg PO 3XW diltiazem HCl CD 120 mg PO DAILY docusate sodium 200 mg PO DAILY empagliflozin (Jardiance) 10 mg PO DAILY flecainide 100 mg PO Q12H fluticasone propion-salmeterol 250-50 mcg/dose 1 inh inhalation Q12H furosemide 80 mg (2 x 40 mg) PO DAILY levalbuterol HCl 1.25 mg (0.5 mL) inhalation Q4H levalbuterol tartrate 45 mcg/actuation 2 inhalations PO Q4-6H PRN multivitamin 1 tab PO DAILY potassium chloride ER 10 mEq PO DAILY sennosides (senna) 25.8 mg PO BEDTIME warfarin See Protocol 7.5 mg orally 7.5 X 4 DAYS/ 5MG X 3 DAYS; Nursing Note INR: 3.2 out of therapeutic range of 2-3 Medications and supplements reviewed Patient status: pt using portable O2 and has a barking cough. 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 Today is last day in course of treatment. Pt also has swelling on top outer aspect of right hand which is red and concerning for cellulitis. Pt instructed to call his MD or go to walk in clinic to have it checked. He stated he will do that and will call [facility] if he starts on antibiotics. Medications or supplements: other than prednisone, no changes Diet: usual diet for pt Denies any signs and symptoms of bleeding or clotting or unusual bruising Bleeding, bruising, clotting discussed Nutritional guidance given: to have a serving of greens today Dose: decrease today's dose to 2.5mg (5mg) and then 5mg X 5 days and 7.5mg X 2 days (Sun & Wed) F/U INR Date: 4 weeks Patient verbalizing understanding of instructions given. Anti-Coag Initial Assessment Social Hx Patient Tobacco Use Status: Former Tobacco user alcohol intake: current Alcohol intake frequency: holidays/special occasions only Coding Level of Care Code Est Patient Level 1 Diagnoses Current use of anticoagulant therapy Z79.01 Assessment & Plan Assessment & Plan (1) Current use of anticoagulant therapy: Code(s): Z79.01 - shelter (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
--- OUTSIDE RECORDS SUMMARY | 2024-10-08 13:58 | XMS_ITS | Continuity of Care Document ---
Author Name [facility] Organization [facility] Care Team Providers Care [employer] Maker Name Role Phone [facility] Unavailable Unavailable Social History Combined list of available smoking, tobacco, and other social history from Department of Defense and Veterans Affairs facilities. Social History Type Response Date Comment Sourc e This section is an empty social history section. [facility]
--- OUTSIDE RECORDS SUMMARY | 2024-10-08 14:03 | XMS_ITS | Clinical Summary ---
Author Organization [facility] [address] [facility] lding Address [address] [place] [address] Phone Care Team Providers Care Personal Lines Account Executive Name Role Phone Evelyn Valdez MD Primary [...] ventricle 06/30/2021 Overview (11/07/2023): 06/30/2021 Dr. Nava Almena cardiology. No clinical signs central venous congestion. Medical therapy and pulmonary optimization with increased physical activity and breathing exercises recommended. Vascular disease 06/29/2021 DEREK and COPD overlap syndrome ([facility] V24, [facility] V28) 03/24/2021 Atelectasis, left 12/12/2018 Chronically elevated hemidiaphragm 12/12/2018 COPD (chronic obstructive pu lmonary disease) ([facility] V24, [facility] V28) 12/12/2018 Overview (11/07/2023): Moderately severe Vitamin D deficiency 12/12/2018 Paroxysmal atrial fibrillation ([facility] V24, [facility] /[facility] V28) 12/11/2018 Overview (11/07/2023): On warfarin. Cardioversion 02/2018 Severe obesity (BMI 35.0-39. 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 Anticoagulation- warfarin Encounters Date Type Department Care Team Description 09/24/2024 1:15 PM EDT Office Visit Pulmonolgy [address] [phone] Mica Parikh MD DEREK on CPAP (Primary Dx); COPD with asthma ([facility] V24, [facility] V28); Bronchiectasis without complication ([facility] V24, [facility] V28); Ex-smoker; Other fatigue 09/24/2024 12:30 PM EDT Ancillary Procedure Pulmonolgy - [address] [phone] Chronic obstructive pulmonary disease, unspecified COPD type ([facility] V24, [facility] V28) 09/23/2024 Telephone Pulmonolgy [address] [phone] Lo Santos [place] 09/17/2024 1:00 PM EDT - 09/17/2024 11:59 PM EDT Hospital Encounter [facility] [place] [address] [place] [address] Chronic obstructive pulmonary disease, unspecified COPD type ([facility] V24, [facility] V28) Discharge Disposition: Home or Self Care 08/20/2024 11:45 AM EDT Office Visit Pulmonolgy [facility] [address] [facility] [address] [place] [phone] Mica Parikh MD Chronic obstructive pulmonary disease, unspecified COPD type ([facility] V24, [facility] V28) (Primary Dx); Chronic bronchitis, unspecified chronic bronchitis type ([facility] V24, [facility] V28); Oxygen dependent; DEREK on CPAP; COPD with asthma ([facility] V24, [facility] V28); Bronchiectasis without acute exacerbation ([facility] V24, [facility] V28); Other chronic pulmonary embolism, unspecified whether acute cor pulmonale present ([facility] V24, [facility] V28) 08/19/2024 10:00 AM EDT Consult Orthopedic Surgery [facility] [address] [facility] [address] [place] [phone] Brandt Perdomo MD Right wrist pain (Primary Dx); Elbow swelling, right 08/18/2024 1:00 PM EDT Office Visit Orthopedic Surgery [facility] [address] [facility] [address] [place] [phone] Donny Hughes DPM Arthritis of both ankles (Primary Dx); Dermatophytosis of nail; Peripheral venous insufficiency 08/11/2024 2:40 PM EDT - 08/11/2024 11:59 PM EDT Hospital Encounter Xray - [address] [phone] Right elbow pain Discharge Disposition: Home or Self Care 08/11/2024 1:45 PM EDT Office Visit Adult Medicine - [address] [phone] Leonardo Swenson PA Right elbow pain (Primary Dx); Adenoma of left adrenal gland; Chronic bronchitis, unspecified chronic bronchitis type ([facility] V24, [facility] V28); Primary hypertension; RBBB (right bundle branch block with left anterior fascicular block); History of pneumonia; Oxygen dependent 07/17/2024 Telephone Adult Medicine - [place] [address] [place] [phone] Evelyn Valdez MD 07/16/2024 2:21 PM EDT - 07/16/2024 11:59 PM EDT Hospital Encounter Ultrasound - [place] [address] [place] [phone] Elbow swelling, right; Hand swelling Discharge Disposition: Home or Self Care 07/16/2024 2:15 PM EDT Office Visit Adult Medicine - [place] [address] [place] [phone] Megan Morgan PA Elbow swelling, right (Primary [...] Paroxysmal atrial fibrillation (CMS/HCC V24, CMS/HCC V28) from Last 3 Months Immunizations Name [...] History Date Comments Atrial flutter (CMS/HCC V24, [facility] V28) 12/11/2018 DX:Atrial flutter (HCC); COM MENT: [...] Sign Reading Time Taken Comments Blood Pressure 118/60 09/24/2024 1:43 PM EDT Pulse 78 09/24/2024 1:43 PM EDT Temperature 35.7 C (96.3 F) 09/24/2024 1:43 PM EDT Respiratory Rate 18 08/20/2024 11:55 AM EDT Oxygen Saturation 95% 09/24/2024 1:43 PM EDT Inhaled Oxygen Concentration - - Weight 111 kg (244 lb) 09/24/2024 1:43 PM EDT Height 175.3 cm (5' 9 ) 08/20/2024 11:55 AM EDT Body Mass Index 36.03 08/20/2024 11:55 AM EDT Plan of Treatment Upcoming Encounters Date Type Department Care Team (Late st Contact Info) Description 10/13/2024 11:00 AM EDT Office Visit [facility] Hematology Oncology [address] [place] [phone] Daphne Rodriguez, DO [address] [place] [address] 11/18/2024 1:00 PM EDT Office Visit Orthopedic Surgery [facility] [address] [facility] [address] [place] [phone] Donny Hughes DPM [address] [place] [phone] 12/14/2024 11:15 AM EST Office Visit Adult Medicine - [place] [address] [place] [phone] Leonardo Swenson PA [address] [place] [address] 12/31/2024 1:30 PM EST Office Visit Pulmonolgy [facility] [address] [facility] [address] [place] [phone] Mica Parikh MD [address] [place] [phone] Health Maintenance Due Date Last Done Comments [...] Procedure Name Priority Date/Time Associated Diagnosis Comments PULMONARY FUNCTION TESTING Routine 09/24/2024 1:35 PM EDT Chronic obstructive pulmonary disease, unspecified COPD type (CMS/HCC V24, CMS/HCC V28) XR CHEST 2 VIEWS Routine 09/17/2024 1:17 PM EDT Chronic obstructive pulmonary disease, unspecified COPD type (CMS/HCC V24, CMS/HCC V28) XR WRIST 3+ VIEWS RIGHT Routine 08/19/2024 [...] PM EDT Elbow swelling, right Hand swelling CREATININE, SERUM Routine 05/22/2024 2:1 1 PM EDT Adenoma of left adrenal gland LIPID PANEL Routine 03/30/2020 HEPATITIS C SCREENING Routine 06/19/2012 from Last 3 Months or Most Recently Relevant to Health Maintenance Results * XR Chest 2 Views (09/17/2024 1:17 PM EDT) Anatomical Region Laterality Modality Body Radiographic Julienne ging 09/17/2024 1:21 PM EDT Impressions 09/17/2024 1:24 PM EDT No acute pulmonary pathology. -------- FINAL REPORT -------- Dictated By: Lorenza Gracia Dictated Date: 09/17/2024 13:21 ET Assigned Physician: Lorenza Gracia Reviewed and Electronically Signed By: Lorenza Gracia Signed Date: 09/17/2024 13:24 ET Workstation ID: [id number] Transcribed By: Self Edit Transcribed Date: 09/17/2024 13:21 ET Narrative 09/17/2024 1:24 PM EDT CHEST, TWO VIEWS HISTORY: Dyspnea. TECHNIQUE: Frontal and lateral views of the chest. PRIOR: Chest x-ray 06/09/2024. FINDINGS: There is elevation of the left hemidiaphragm, not significantly changed. There is crowding of the lung markings at the left lung base, unchanged. No pleural effusion is seen. No pneumothorax is seen. The cardiac diameter is difficult to determine due to elevation of the left hemidiaphragm.. No acute or aggressive appearing bony abnormalities are seen. There is degenerative change of the spine. Median sternotomy sutures are again noted. Procedure Note Lorenza Gracia MD - 09/17/2024 CHEST, TWO VIEWS HISTORY: Dyspnea. TECHNIQUE: Frontal and lateral views of the chest. PRIOR: Chest x-ray 06/09/2024. FINDINGS: There is elevation of the left hemidiaphragm, not significantlychanged. There is crowding of the lung markings at the left lung base, unchanged. No pleural effusion is seen. No pneumothorax is seen. The cardiac diameter is difficult to determine due to elevation of theleft hemidiaphragm.. No acute or aggressive appearing bony abnormalities are seen. There isdegenerative change of the spine. Median sternotomy sutures are again noted. IMPRESSION: No acute pulmonary pathology. -------- FINAL REPORT -------- Dictated By: Lorenza Gracia Dictated Date: 09/17/2024 13:21 ET Assigned Physician: Lorenza Gracia Reviewed and Electronically Signed By: Lorenza Gracia Signed Date: 09/17/2024 13:24 ET Workstation ID: [id number] Transcribed By: Self Edit Transcribed Date: 09/17/2024 13:21 ET us Mica Parikh MD IMG XR PROCEDURES Final Result * XR Wrist 3+ Views Right (08/19/2024 [...] and intra-articular bodies. Medial epicondylitis. POS - [id number] -------- FINAL REPORT -------- Dictated By: Lizett Sanchez Dictated Date: 08/12/2024 07:13 ET Assigned Physician: Lizett Sanchez Reviewed and Electronically Signed By: Lizett Sanchez Signed Date: 08/12/2024 07:26 ET Workstation ID: [id number] Transcribed By: Self Edit Transcribed Date: 08/12/2024 [...] effusion and intra-articular bodies.Medial epicondylitis. POS - [id number] -------- FINAL REPORT -------- Dictated By: Lizett Sanchez Dictated Date: 08/12/2024 07:13 ET Assigned Physician: Lizett Sanchez Reviewed and Electronically Signed By: Lizett Sanchez Signed Date: 08/12/2024 07:26 ET Workstation ID: [id number] Transcribed By: Self Edit Transcribed Date: 08/12/2024 07:13 ET Leonardo WING IMG XR PROCEDURES Final Result * (ABNORMAL) Manual differential (08/11/2024 2:33 PM EDT) Neutrophils % 57.0 % LAB HEMETOLOGY METHOD 08/11/2024 6:42 PM EDT [facility] Lymphocytes % 6.0 % LAB HEMETOLOGY METHOD 08/11/2024 6:42 PM EDT [facility] Reactive Lymphocyte 2.00 % LAB HEMETOLOGY METHOD 08/11/2024 6:42 PM EDT [facility] Monocytes % 32.0 % LAB HEMETOLOGY METHOD 08/11/2024 6:42 PM EDT [facility] Eosinophils % 4.0 % LAB HEMETOLOGY METHOD 08/11/2024 6:42 PM EDT [facility] Basophils % 0.0 % LAB HEMETOLOGY METHOD 08/11/2024 6:42 PM EDT [facility] Neutrophils Absolute Manual 4.96 1.50 - 7.00 K/mcL LAB HEMETOLOGY METHOD 08/11/2024 6:42 PM EDT [facility] Lymphocytes Absolute 0.52(L) 1.00 - 5.00 K/mcL LAB HEMETOLOGY METHOD 08/11/2024 6:42 PM EDT [facility] Reactive Lymph Abs Manual 0.17(H) 0.00 - 0.00 lym LAB HEMETOLOGY METHOD 08/11/2024 6:42 PM EDT [facility] Monocytes Absolute Manual 2.78(H) 0.20 - 1.00 K/mcL LAB HEMETOLOGY METHOD 08/11/2024 6:42 PM EDT [facility] Eosinophils Absolute Manual 0.35 0.00 - 0.50 K/[facility] LAB HEMETOLOGY METHOD 08/11/2024 6:42 PM EDT [facility] Basophils Absolute Manual 0.00 0.00 - 0.20 K/[facility] LAB HEMETOLOGY METHOD 08/11/2024 6:42 PM EDT [facility] Rbc Morphology Consistent with indices Consistent with indices, Normal for [place] LAB HEMETOLOGY METHOD 08/11/2024 6:42 PM EDT [facility] Platelet Morphology - WAM See Note(A) Normal LAB HEMETOLOGY METHOD 08/11/2024 6:42 PM EDT [facility] Comment:PLT: Normal Blood Venous blood specimen / Unknown Venipuncture / Unknown 08/11/2024 2:33 PM EDT 08/11/2024 2:34 PM EDT Leonardo WING LAB BLOOD ORDERABLES Final Res ult [facility] [address] [place] [address], * (ABNORMAL) CBC auto differential (08/11/2024 2:33 PM EDT) WBC 8.7 4.8 - 10.8 K/[facility] LAB HEMETOLOGY METHOD 08/11/2024 6:42 PM EDT [facility] RBC 4.40(L) 4.50 - 5.50 M/mcL LAB HEMETOLOGY METHOD 08/11/2024 6:42 PM EDT [facility] Hemoglobin 12.5(L) 13.5 - 17.5 g/dL LAB HEMETOLOGY METHOD 08/11/2024 6:42 PM EDT [facility] Hematocrit 41.3(L) 42.0 - 54.0 % LAB HEMETOLOGY METHOD 08/11/2024 6:42 PM EDT [facility] MCV 93.4 79.0 - 98.0 FL LAB HEMETOLOGY METHOD 08/11/2024 6:42 PM EDT [facility] MCH 28.3 27.0 - 32.0 pcg LAB HEMETOLOGY METHOD 08/11/2024 6:42 PM EDT [facility] MCHC 30.3(L) 32.0 - 37.0 g/dL LAB HEMETOLOGY METHOD 08/11/2024 6:42 PM EDT [facility] RDW 15.9(H) 11.0 - 15.0 % LAB HEMETOLOGY METHOD 08/11/2024 6:42 PM EDT [facility] Platelets 149 130 - 400 K/mcL LAB HEMETOLOGY METHOD 08/11/2024 6:42 PM EDT [facility] MPV 11.0 7.0 - 11.0 FL LAB HEMETOLOGY METHOD 08/11/2024 6:42 PM EDT [facility] NRBC 0.0 <1.0 % LAB HEMETOLOGY METHOD 08/11/2024 6:42 PM EDT [facility] NRBC Absolute 0.00 <0.10 K/mcL LAB HEMETOLOGY METHOD 08/11/2024 6:42 PM EDT [facility] Blood Venous blood specimen / Unknown Venipuncture / Unknown 08/11/2024 2:33 PM EDT 08/11/2024 2:34 PM EDT us Leonardo WING LAB BLOOD ORDERABLES Final Res ult [facility] [address] [place] [address], * Uric acid (08/11/2024 2:33 PM EDT) Uric Acid 4.6 3.7 - 9.2 mg/dL LAB CHEMISTRY METHOD 08/11/2024 6:27 PM EDT [facility] Blood Venous blood specimen / Unknown Venipuncture / Unknown 08/11/2024 2:33 PM EDT 08/11/2024 2:34 PM EDT Leonardo WING LAB BLOOD ORDERABLES Final Res ult Performing Organization Address [facility]/ZIP Co de Phone Number [facility] [address] [place] [address], [place] [phone] * B-type natriuretic peptide (08/11/2024 2:33 PM EDT) Pathologist [facility] BNP 54 <=100 pcg/mL LAB CHEMISTRY METHOD 08/11/2024 6:26 PM EDT [facility] Blood Venous blood specimen / Unknown Venipuncture / Unknown 08/11/2024 2:33 PM EDT 08/11/2024 2:34 PM EDT Leonardo WING LAB BLOOD ORDERABLES Final Res ult Performing Organization Address [facility] Co de Phone Number [facility] [address] [place] [address], [place] [phone] * Vascular US duplex upper extremity venous [...] -------- FINAL REPORT -------- Dictated By: Subha oRmero Dictated Date: 07/16/2024 15:06 ET Assigned Physician: Subha Romero Reviewed and Electronically Signed By: Subha Romero Signed Date: 07/16/2024 15:13 ET Workstation ID: [id number] Transcribed By: Self Edit Transcribed Date: 07/16/2024 [...] Signed Date: 07/16/2024 15:13 ET Workstation ID: [id number] Transcribed By: Self Edit Transcribed Date: 07/16/2024 15:06 ET us Megan WING CV VASCULAR PROCEDURES Fin al Result * Creatinine (05/22/2024 2:11 PM EDT) Creatinine 0.84 0.70 - 1.30 mg/dL LAB CHEMISTRY METHOD 05/22/2024 4:35 PM EDT [facility] eGFR 90 >=60 mL/min/1. 73m2 LAB CHEMISTRY METHOD 05/22/2024 4:35 PM EDT [facility] Comment:Calculation based on the Chronic Kidney Disease Epidemiology Collaboration (CKD-EPI) equation refit without adjustment for race. Blood Venous blood specimen / Unknown Venipuncture / Unknown 05/22/2024 2:11 PM EDT 05/22/2024 2:11 PM EDT Garo Florez MD LAB BLOOD ORDERABLES Final Resul t [facility] [address] [place] [address], * Lipid panel (03/30/2020) LDL/HDL Ratio 3 [...] of Phone Billing Address Personal/Family Self 1945 [phone] (Work) [address] [place] [address] [employer] Care Teams Personal Lines Account Executive Relationship Specialty Start Date End Date Evelyn Valdez MD [address] [place] [address] [place] [address] PCP - General Internal Medicine 12/09/18
== END 2024-10-08 13:43 | disposition home or self-care (01) ==
LOC: HO.ACS 13:22
PROVIDERS: PCP Internal Medicine; Visit Provider Internal Medicine Medical Oncology
DX: Z79.01 Long term (current) use of anticoagulants (principal)

== ENCOUNTER → 2024-10-08 13:22 | Outpatient (BNVA) | payer MEDICARE, SELFPAY | PROVIDERS: PCP Internal Medicine; Visit Provider Internal Medicine Medical Oncology | DX: Z51.81 Encounter for therapeutic drug level monitoring (principal); Z79.01 Long term (current) use of anticoagulants | CPT/HCPCS: 85610; 99211 ==

== ENCOUNTER 2024-10-29 14:33 | Outpatient (AMB) | payer MEDICARE, SELFPAY ==
[2024-10-29 14:52] VITALS: BP 114/62; PULSE 82; BMI 35.6
--- NOTE | 2024-10-29 14:52 | A.OFFVIS_ITS ---
Vital Signs 10/29/24 14:52 Height 5 ft 7 in Weight 227 lb 1.218 oz BMI 35.6 BP 114/62 Blood Pressure Location Lt brachial Position Sitting Pulse 82 Pulse Source Monitor Intake Visit Reasons: 3m follow up Rn Geriatric Required: No Adjuster Arbitrator: Adjuster Arbitrator Present Allergies albuterol Adverse Reaction (Intermediate, Verified 10/29/24 14:54) Palpitations amoxicillin (From Augmentin) Adverse Reaction (Intermediate, Verified 10/29/24 14:54) Nausea and Vomiting, dizziness clavulanic acid (From Augmentin) Adverse Reaction (Intermediate, Verified 10/29/24 14:54) Nausea and Vomiting, dizziness Medication List - Last Reconciled 10/29/24 by NIKKI ReynosoC acetaminophen 1,000 mg PO Q6H PRN acetazolamide 250 mg PO DAILY 30 days MDD RESPIRATORY FAILURE atorvastatin 20 mg PO DAILY azithromycin 250 mg PO 3XW diltiazem HCl CD 120 mg PO DAILY docusate sodium 200 mg PO DAILY empagliflozin (Jardiance) 10 mg PO DAILY flecainide 100 mg PO Q12H fluticasone propion-salmeterol 250-50 mcg/dose 1 inh inhalation Q12H furosemide 80 mg (2 x 40 mg) PO DAILY levalbuterol HCl 1.25 mg (0.5 mL) inhalation Q4H levalbuterol tartrate 45 mcg/actuation 2 inhalations PO Q4-6H PRN multivitamin 1 tab PO DAILY potassium chloride ER 10 mEq PO DAILY sennosides (senna) 25.8 mg PO BEDTIME warfarin See Protocol 7.5 mg orally 7.5 X 4 DAYS/ 5MG X 3 DAYS; HPI HPI 3m follow up: Details: Jay is a 79-year-old male with past medical history of obesity, COPD, heart failure with preserved EF, mitral regurgitation, dilated ascending aorta, paroxysmal atrial flutter who presents for follow-up. Today he reports that he he has been doing generally well. He has not had any recent hospitalizations. On some days his breathing is more labored then other days. He has an intermittent cough with green/yellow sputum. He wears his oxygen as needed during the day and wear CPAP at night. He is wearing oxygen 2 L at this visit. He sleeps with 2 pillows which is his norm. The edema in his left lower extremity has improved. The edema in his right lower extremity is less than it had been previously. He has chronic skin discoloration. He has been using his leg compression device each night. No chest discomfort at rest or with activity. No heart palpitations, lightheadedness, presyncope, syncope. No bleeding issues with Coumadin. Taking meds as directed. He tells me he is taking Lasix 80 mg in the a.m. and 40 mg in the p.m.. He is following with a new industrial commercial groundskeeper, Dr. Parikh, at [place]. He has recently started on Spiriva which he feels is helping some. is present. [facility] Medical History CHF (congestive heart failure) Hypoventilation Restrictive airway disease (HFpEF) heart failure with preserved ejection fraction CHF exacerbation Cough Paroxysmal atrial fibrillation Lymphedema of both lower extremities DEREK on CPAP Obesity (BMI 35.0-39.9 without comorbidity) COPD (chronic obstructive pulmonary disease) Varicose veins of right lower extremity with inflammation Surgical History History of appendectomy Family History Father No problems noted. Mother No problems noted. Sister No problems noted. Sister No problems noted. Son No problems noted. Daughter No problems noted. Social History Household Members: Family Housing: House Are you a primary patient care director to a significant other at home: No Do you presently have visiting nurse or other home services: No Alcohol intake: current Alcohol intake frequency: holidays/special occasions only Alcohol type: beer Comment: PT USES CALL LIGHT APPROPRIATELY Patient Tobacco Use Status: Former Tobacco user Advance Directives Date on File: 03/05/24 service: Yes Current occupational status: retired Review of Systems Const All systems reviewed & are unremarkable except as noted in HPI and below Reports fatigue ENT Denies dizziness Card Denies chest pain, Denies chest pain at rest, Denies chest pain with activity, Denies rapid heart rate, Denies pedal edema, Denies edema, Denies leg edema, Denies lightheadedness, Denies palpitations, Reports dyspnea, Reports dyspnea on exertion and Denies orthopnea Resp Details: Wears oxygen 2 L Reports cough (Intermittent), Reports dyspnea and Reports dyspnea on exertion GI Denies hematochezia and Denies change in stool character Musc Reports abnormal gait, Reports limited range of motion, Denies muscle cramps, Denies muscle weakness, Denies numbness, Denies radiating pain into limb, Denies stiffness and Denies tingling Neuro Reports abnormal gait, Denies dizziness, Denies numbness and Denies tingling Endo Reports fatigue and Denies palpitations Physical Exam Vital Signs: BMI result Body Mass Index 35.6 Const General: cooperative, comfortable and no acute distress Orientation/consciousness: patient oriented x3 Neck Neck: Yes normal visual inspection Resp Other: Lung sounds diminished bilaterally Effort & Inspection: normal respiratory effort Auscultation: no rales and no wheezes Cardio Rate: regular rate Rhythm: regular rhythm Heart sounds: S1 normal heart sound present, S2 normal heart sound present, no murmurs and no rubs Neuro General: patient oriented x3 Extrem Other: Nonpitting edema of his right lower extremity, venous stasis skin discoloration bilateral lower extremities, right greater than left. Psych Appearance: grossly normal Mental Status: mental status grossly normal Speech and movement: Normal speech and movement present Office Procedures EKG Details: Today, read by me, sinus rhythm with first-degree AV block, PA interval 216 milliseconds, right bundle branch block, can not exclude inferior infarct, rate 82, QTC 472 millisecond [id number], Complete Assessment & Plan Assessment & Plan (1) SOB (shortness of breath) on exertion: Code(s): R06.02 - Shortness of breath Category: Medical Plan: Reports of chronic shortness of breath with exertion which is likely multifactorial with his COPD, chronic respiratory failure with hypoxia, underlying heart failure with preserved EF. Condition currently stable at this time. Labs 07/23/2024 showed creatinine 0.91, BNP 46, hemoglobin 12.9. - continue current meds without change including Lasix 80 mg in the morning and 40 mg in the evening. Daily home weight monitoring. If he has gained greater than 3 lb or has not increased shortness of breath he may take an additional dose of Lasix. Follow low-salt diet. (2) (HFpEF) heart failure with preserved ejection fraction: Code(s): I50.30 - Unspecified diastolic (congestive) heart failure Category: Medical Plan: History of heart failure with preserved EF. Last echocardiogram 07/03/2024 showing EF 55-60%, basal inferior akinetic moderate mitral regurgitation, significantly elevated right atrial pressures and mild pulmonary hypertension. He does have sleep apnea and wears a mask. He tells me that sleep study is ordered to evaluate if he needs adjustment in his settings. Continue diuretics and management as above. (3) Paroxysmal atrial fibrillation: Code(s): I48.0 - Paroxysmal atrial fibrillation Category: Medical Plan: History of paroxysmal atrial fibrillation which is currently suppressed with flecainide for rhythm control and diltiazem for rate control. He is on Coumadin for anticoagulation with INR goal 2-3. He [place] [facility] [place] [facility]. EKG today showing sinus rhythm with first-degree AV block, right bundle branch block, unchanged from prior, rate 82. On recent echo his left atrium is moderately dilated right atrium is severely dilated. Continue current treatment plan. (4) Current use of anticoagulant therapy: Code(s): Z79.01 - manager terminal (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 Plan: As above (5) COPD (chronic obstructive pulmonary disease): Comment: Code(s): J44.9 - Chronic obstructive pulmonary disease, unspecified Category: Medical Qualifiers: COPD type: COPD with acute exacerbation Qualified Code(s): J44.1 - Chronic obstructive pulmonary disease with (acute) exacerbation Plan: Change industrial commercial groundskeeper to Lia Pulido. Plan Time spent on chart review, documentation, interview and assessment Medications: New tiotropium bromide 1.25 mcg/actuation (Spiriva Respimat) 2 puffs inhalation DAILY Coding Level of Care Code Est Pt Level 4 (00097) Complex EM visit Add On G2211 Diagnoses SOB (shortness of breath) on exertion R06.02 (HFpEF) heart failure with preserved ejection fraction I50.30 Paroxysmal atrial fibrillation I48.0 Current use of anticoagulant therapy Z79.01 COPD (chronic obstructive pulmonary disease) J44.1 COPD type: COPD with acute exacerbation CPT Codes EKG - CPT: 61612-[id number], Complete ([id number]) Time Spent (min) 32
--- OUTSIDE RECORDS SUMMARY | 2024-10-29 16:19 | XMS_ITS | Clinical Summary ---
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 Nava Angola cardiology. No clinical signs central venous congestion. Medical therapy and pulmonary optimization with increased physical activity and breathing exercises recommended. Vascular disease 06/29/2021 DEREK and COPD overlap syndrome ([facility] V24, [facility] V28) 03/24/2021 Atelectasis, left 12/12/2018 Chronically elevated hemidiaphragm 12/12/2018 COPD (chronic obstructive pu lmonary disease) ([facility] V24, [facility] V28) 12/12/2018 Overview (11/07/2023): Moderately severe Vitamin D deficiency 12/12/2018 Paroxysmal atrial fibrillation ([facility] V24, [facility] V28) 12/11/2018 Overview (11/07/2023): On warfarin. Cardioversion 02/2018 Severe obesity (BMI 35.0-39. 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 Anticoagulation- warfarin Encounters Date Type Department Care Team Description 10/22/2024 Telephone Pulmonolgy - [place] [address] [phone] Mica Parikh MD 09/24/2024 1:15 PM EDT Office Visit Pulmonolgy [address] [phone] Mica Parikh MD DEREK on CPAP (Primary Dx); COPD with asthma (CMS/HCC V24, CMS/HCC V28); Bronchiectasis without complication (CMS/HCC V24, CMS/HCC V28); Ex-smoker; Other fatigue 09/24/2024 12:30 PM EDT Ancillary Procedure Pulmonolgy - [place] [address] [phone] Chronic obstructive pulmonary disease, unspecified COPD type (CMS/HCC V24, CMS/[facility] V28) 09/23/2024 Telephone Pulmonolgy - [place] [address] [phone] Lo Santos [place] 09/17/2024 1:00 PM EDT - 09/17/2024 11:59 PM EDT [facility] [address] [place] [address] Chronic obstructive pulmonary disease, unspecified COPD type ([facility] V24, [facility] V28) Discharge Disposition: Home or Self Care 08/20/2024 11:45 AM EDT Office Visit Pulmonolgy [facility] 175 [facility] [address] [place] [phone] Mica Parikh MD Chronic obstructive pulmonary disease, unspecified COPD type ([facility] V24, [facility] V28) (Primary Dx); Chronic bronchitis, unspecified chronic bronchitis type ([facility] V24, [facility] V28); Oxygen dependent; DEREK on CPAP; COPD with asthma ([facility] V24, [facility] V28); Bronchiectasis without acute exacerbation ([facility] V24, [facility] V28); Other chronic pulmonary embolism, unspecified whether acute cor pulmonale present ([facility] V24, [facility] V28) 08/19/2024 10:00 AM EDT Consult Orthopedic Surgery [facility] 175 [facility] [address] [place] [phone] Brandt Perdomo MD Right wrist pain (Primary Dx); Elbow swelling, right 08/18/2024 1:00 PM EDT Office Visit Orthopedic [facility] [address] [facility] [address] [place] [phone] Donny Hughes DPM Arthritis of both ankles (Primary Dx); Dermatophytosis of nail; Peripheral venous insufficiency 08/11/2024 2:40 PM EDT - 08/11/2024 11:59 PM EDT Hospital Encounter [facility] - [place] [address] [place] [phone] Right elbow pain Discharge Disposition: Home or Self Care 08/11/2024 1:45 PM EDT Office Visit Adult Medicine - [place] [address] [place] [phone] Leonardo Swenson PA Right elbow pain (Primary Dx); Adenoma of left adrenal gland; Chronic bronchitis, unspecified chronic bronchitis type (CMS/HCC V24, CMS/HCC V28); Primary hypertension; RBBB (right bundle branch block with left anterior fascicular block); History of pneumonia; Oxygen dependent from Last 3 Months Immunizations Name Administration [...] History Medical History Date Comments Atrial flutter ([facility] V24, [facility] V28) 12/11/2018 DX:Atrial flutter ([facility]); COM MENT: On warfarin Adrenal adenoma 04/10/2016 [...] hemidiaphragm COPD (chronic obstructive pu lmonary disease) ([facility] V24, [facility] V28) 12/12/2018 DX:COPD (chronic o bstructive pulmonary disease) ([facility]); COMMENT: Moderately severe Diverticulosis 09/22/2010 [...] dysfunction, left ventricle; COMMENT: 06/30/2021 Dr. Elijah Olivsa cardiology. No clinical signs central venous congestion. [...] your loved ones. For example, early childhood associate teacher or elderly care for an [...] Care Team (Late st Contact Info) Description 11/17/2024 1:00 PM EDT Office Visit [facility] Hematology Oncology [address] [place] [phone] Daphne Rodriguez DO [address] [place] [address] 11/18/2024 1:00 PM EDT Office Visit Orthopedic Surgery [facility] [address] [phone] Donny Hughes, DPM [address] [phone] 12/14/2024 11:15 AM EST Office Visit Adult Medicine [facility] [address] [place] [phone] Leonardo Swenson PA [address] [place] [address] 12/31/2024 1:30 PM EST Office Visit Pulmonolgy - [place] [address] [phone] Mica Parikh MD 175 [facility] [address] [place] [address] Health Maintenance Due Date Last Done Comments [...] 08/11/2024 2:33 PM EDT Right elbow pain CREATININE, SERUM Routine 05/22/2024 2:1 1 PM [...] Signed Date: 09/17/2024 13:24 ET Workstation ID: [id number] Transcribed By: Self Edit Transcribed Date: 09/17/2024 [...] Signed Date: 09/17/2024 13:24 ET Workstation ID: [id number] Transcribed By: Self Edit Transcribed Date: 09/17/2024 [...] Diffuse degenerative changes at the right wrist Brandt Perdomo MD IM XR PROCEDURES Final Result * XR Elbow 3+ Views Right (08/11/2024 2:48 PM EDT) Anatomical Region Laterality Modality Upper Extremities, Elbow Right Radiogr aphic Imaging 08/12/2024 7:13 AM EDT Impressions 08/12/2024 7:26 AM EDT Prominent soft tissue swelling of the posteromedial elbow/distal upper arm. Mild degenerative changes. Joint effusion and intra-articular bodies. Medial epicondylitis. POS - [id number] -------- FINAL REPORT -------- Dictated By: Lizett Sanchez Dictated Date: 08/12/2024 07:13 ET Assigned Physician: Lizett Sanchez Reviewed and Electronically Signed By: Lizett Sanchez Signed Date: 08/12/2024 07:26 ET Workstation ID: [id number] Transcribed By: Self Edit Transcribed Date: 08/12/2024 [...] effusion and intra-articular bodies.Medial epicondylitis. POS - [id number] -------- FINAL REPORT -------- Dictated By: Lizett Sanchez Dictated Date: 08/12/2024 07:13 ET Assigned Physician: Lizett Sanchez Reviewed and Electronically Signed By: Lizett Sanchez Signed Date: 08/12/2024 07:26 ET Workstation ID: [id number] Transcribed By: Self Edit Transcribed Date: 08/12/2024 07:13 ET Leonardo WING IMG XR PROCEDURES Final Result * (ABNORMAL) Manual differential (08/11/2024 2:33 PM EDT) Neutrophils % 57.0 % LAB HEMETOLOGY METHOD 08/11/2024 6:42 PM EDT [facility] Lymphocytes % 6.0 % LAB HEMETOLOGY METHOD 08/11/2024 6:42 PM EDT [facility] Reactive Lymphocyte 2.00 % LAB HEMETOLOGY METHOD 08/11/2024 6:42 PM EDT [facility] Monocytes % 32.0 % LAB HEMETOLOGY METHOD [facility]24 [facility] Eosinophils % 4.0 % LAB HEMETOLOGY METHOD 08/11/2024 6:[facility] Basophils % 0.0 % LAB HEMETOLOGY METHOD 08/11/2024 6:42 PM [facility] Neutrophils Absolute Manual 4.96 1.50 - 7.00 K/mcL LAB HEMETOLOGY METHOD 08/11/2024 6:42 PM [facility] Lymphocytes Absolute 0.52(L) 1.00 - 5.00 K/mcL LAB HEMETOLOGY METHOD 08/11/2024 6:42 PM [facility] Reactive Lymph Abs Manual 0.17(H) 0.00 - 0.00 lym LAB HEMETOLOGY METHOD 08/11/2024 6:42 PM [facility] Monocytes Absolute Manual 2.78(H) 0.20 - 1.00 K/mcL LAB HEMETOLOGY METHOD 08/11/2024 6:42 PM [facility] Eosinophils Absolute Manual 0.35 0.00 - 0.50 K/mcL LAB HEMETOLOGY METHOD 08/11/2024 6:42 PM [facility] Basophils Absolute Manual 0.00 0.00 - 0.20 K/mcL LAB HEMETOLOGY METHOD 08/11/2024 6:42 PM [facility] Rbc Morphology Consistent with indices Consistent with indices, Normal for [place] LAB HEMETOLOGY METHOD 08/11/2024 6:42 PM [facility] Platelet Morphology - WAM See Note(A) Normal LAB HEMETOLOGY METHOD 08/11/2024 6:42 PM [facility] Comment:PLT: Normal Blood Venous blood specimen / Unknown Venipuncture / Unknown 08/11/2024 2:33 PM EDT 08/11/2024 2:34 PM EDT us Leonardo WING LAB BLOOD ORDERABLES Final Res ult [facility] [address] [place] [address], [place] [phone] * (ABNORMAL) CBC auto differential (08/11/2024 2:33 PM EDT) WBC 8.7 4.8 - 10.8 K/mcL LAB HEMETOLOGY METHOD 08/11/2024 6:42 PM EDT [facility] RBC 4.40(L) 4.50 - 5.50 M/mcL LAB HEMETOLOGY METHOD 08/11/2024 6:42 PM EDT [facility] Hemoglobin 12.5(L) 13.5 - 17.5 g/dL LAB HEMETOLOGY METHOD 08/11/2024 6:42 PM EDT [facility] Hematocrit 41.3(L) 42.0 - 54.0 % LAB HEMETOLOGY METHOD 08/11/2024 6:42 PM EDT [facility] MCV 93.4 79.0 - 98.0 FL LAB HEMETOLOGY METHOD 08/11/2024 6:42 PM EDT [facility] MCH 28.3 27.0 - 32.0 pcg LAB HEMETOLOGY METHOD 08/11/2024 6:42 PM EDT [facility] MCHC 30.3(L) 32.0 - 37.0 g/dL LAB HEMETOLOGY METHOD 08/11/2024 6:42 PM EDT [facility] RDW 15.9(H) 11.0 - 15.0 % LAB HEMETOLOGY METHOD 08/11/2024 6:42 PM EDT [facility] Platelets 149 130 - 400 K/mcL LAB HEMETOLOGY METHOD 08/11/2024 6:42 PM EDT [facility] MPV 11.0 7.0 - 11.0 FL LAB HEMETOLOGY METHOD 08/11/2024 6:42 PM EDT [facility] NRBC 0.0 <1.0 % LAB HEMETOLOGY METHOD 08/11/2024 6:42 PM EDT [facility] NRBC Absolute 0.00 <0.10 K/mcL LAB HEMETOLOGY METHOD 08/11/2024 6:42 PM EDT [facility] Blood Venous blood specimen / Unknown Venipuncture / Unknown 08/11/2024 2:33 PM EDT 08/11/2024 2:34 PM EDT Leonardo WING LAB BLOOD ORDERABLES Final Res ult Performing Organization Address [facility]/ZIP Co de Phone Number [facility] [address] [place] [address], * Uric acid (08/11/2024 2:33 PM EDT) Uric Acid 4.6 3.7 - 9.2 mg/dL LAB CHEMISTRY METHOD 08/11/2024 6:27 PM EDT [facility] Blood Venous blood specimen / Unknown Venipuncture / Unknown 08/11/2024 2:33 PM EDT 08/11/2024 2:34 PM EDT Leonardo WING LAB BLOOD ORDERABLES Final Res ult [facility] [address] [place] [address], * B-type natriuretic peptide (08/11/2024 2:33 PM EDT) BNP 54 <=100 pcg/mL LAB CHEMISTRY METHOD 08/11/2024 6:26 PM EDT [facility] Blood Venous blood specimen / Unknown Venipuncture / Unknown 08/11/2024 2:33 PM EDT 08/11/2024 2:34 PM EDT Leonardo WING LAB BLOOD ORDERABLES Final Res ult [facility] [address] [place] [address], [place] [phone] * Creatinine (05/22/2024 2:11 PM EDT) [facility] Creatinine 0.84 0.70 - 1.30 mg/dL LAB CHEMISTRY METHOD 05/22/2024 4:35 PM EDT [facility] eGFR 90 >=60 mL/min/1. 73m2 LAB CHEMISTRY METHOD 05/22/2024 4:35 PM EDT [facility] Comment:Calculation based on the Chronic Kidney Disease Epidemiology Collaboration (CKD-EPI) equation refit without adjustment for race. Blood Venous blood specimen / Unknown Venipuncture / Unknown 05/22/2024 2:11 PM EDT 05/22/2024 2:11 PM EDT Garo Florez MD LAB BLOOD ORDERABLES Final Resul t Performing Organization Address [facility]/ZIP Co de Phone Number [facility] [address] [place] [address], [place] [phone] * Lipid panel (03/30/2020) [facility] LDL/HDL Ratio 3 0 - 4 Triglycerides 114 0 - 150 mg/dL Cholesterol 132 0 - 200 mg/dL HDL 43 >=40 mg/dL LDL Cholesterol 67 0 - 100 mg/dL Blood Venous blood specimen / Unknown Richard Titus MD LAB BLOOD ORDERABLES Isela l Result * Hepatitis C Screening (06/19/2012) [facility] Hepatitis C Screening abstracted Historical Provider HEALTH MAINTENANCE Final Result from Last 3 Months or Most Recently Relevant to Health Maintenance Insurance * Guarantor: Leanne Jaramillo Account Type Relation to Patient Date of Phone Billing Address Personal/Family Self 1945 [phone] (Work) [address] [place] [address] [employer] MEDICARE Care Teams 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
== END 2024-10-29 15:24 | disposition home or self-care (01) ==
LOC: HO.HCS 14:34
PROVIDERS: PCP Internal Medicine; Visit Provider Nurse Practitioner Family
DX: R06.02 Shortness of breath (principal); I50.30 Unspecified diastolic (congestive) heart failure; I48.0 Paroxysmal atrial fibrillation; Z79.01 Long term (current) use of anticoagulants; J44.1 Chronic obstructive pulmonary disease with (acute) exacerbation
CPT/HCPCS: 93010; 99214; G2211

== ENCOUNTER → 2024-10-29 14:33 | Outpatient (BNVA) | payer MEDICARE, SELFPAY | PROVIDERS: PCP Internal Medicine; Visit Provider Nurse Practitioner Family | DX: R06.02 Shortness of breath (principal); I50.30 Unspecified diastolic (congestive) heart failure; I48.0 Paroxysmal atrial fibrillation; J44.1 Chronic obstructive pulmonary disease with (acute) exacerbation; Z79.01 Long term (current) use of anticoagulants; I45.10 Unspecified right bundle-branch block; I44.0 Atrioventricular block, first degree; R94.31 Abnormal electrocardiogram [ECG] [EKG] | CPT/HCPCS: 93005; 99212 ==

== ENCOUNTER 2024-11-05 13:15 | Outpatient (AMB) | payer MEDICARE, SELFPAY ==
[2024-11-05 13:36] LABS: Prothrombin Time Whole Bld POC 30.3 sec (11.1-13.5); ~PT, ~INR - Anti Coag Clinic 2.5 (0.9-1.1)
--- NOTE | 2024-11-05 13:41 | MHC.OFFVISCO ---
Intake Intake Visit Reasons: Anticoagulation Allergies albuterol Adverse Reaction (Intermediate, Verified 11/05/24 13:32) Palpitations amoxicillin (From Augmentin) Adverse Reaction (Intermediate, Verified 11/05/24 13:32) Nausea and Vomiting, dizziness clavulanic acid (From Augmentin) Adverse Reaction (Intermediate, Verified 11/05/24 13:32) Nausea and Vomiting, dizziness Medication List - Last Reconciled 11/05/24 by Lottie Avila RN acetaminophen 1,000 mg PO Q6H PRN acetazolamide 250 mg PO DAILY 30 days MDD RESPIRATORY FAILURE atorvastatin 20 mg PO DAILY azithromycin 250 mg PO 3XW diltiazem HCl CD 120 mg PO DAILY docusate sodium 200 mg PO DAILY empagliflozin (Jardiance) 10 mg PO DAILY flecainide 100 mg PO Q12H fluticasone propion-salmeterol 250-50 mcg/dose 1 inh inhalation Q12H furosemide 80 mg (2 x 40 mg) PO DAILY levalbuterol HCl 1.25 mg (0.5 mL) inhalation Q4H levalbuterol tartrate 45 mcg/actuation 2 inhalations PO Q4-6H PRN multivitamin 1 tab PO DAILY potassium chloride ER 10 mEq PO DAILY sennosides (senna) 25.8 mg PO BEDTIME tiotropium bromide 1.25 mcg/actuation (Spiriva Respimat) 2 puffs inhalation DAILY warfarin See Protocol 7.5 mg orally 7.5 X 4 DAYS/ 5MG X 3 DAYS; Nursing Note INR: 2.5 in therapeutic range of 2-3 Pt states he feels well. No O2 used. No resp distress. Completed a course of prednisone since last appointment. Medications and supplements reviewed No changes in health, diet, medications, or supplements, Denies any signs and symptoms of bleeding or bruising or clotting. Bleeding, bruising, clotting discussed Nutritional guidance given Dose: 5mg X 5 days and 7.5mg X 2 days F/U INR: 1 month Patient verbalizes understanding of instructions given Anti-Coag Initial Assessment Social Hx Patient Tobacco Use Status: Former Tobacco user alcohol intake: current Alcohol intake frequency: holidays/special occasions only Coding Level of Care Code Est Patient Level 1 Diagnoses Current use of anticoagulant therapy Z79.01 Assessment & Plan Assessment & Plan (1) Current use of anticoagulant therapy: Code(s): Z79.01 - intermediate (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
== END 2024-11-05 13:45 | disposition home or self-care (01) ==
LOC: HO.ACS 13:15
PROVIDERS: PCP Internal Medicine; Visit Provider Internal Medicine Medical Oncology
DX: Z79.01 Long term (current) use of anticoagulants (principal)

== ENCOUNTER → 2024-11-05 13:15 | Outpatient (BNVA) | payer MEDICARE, SELFPAY | PROVIDERS: PCP Internal Medicine; Visit Provider Internal Medicine Medical Oncology | DX: Z51.81 Encounter for therapeutic drug level monitoring (principal); Z79.01 Long term (current) use of anticoagulants | CPT/HCPCS: 85610; 99211 ==

== ENCOUNTER 2024-12-03 13:22 | Outpatient (AMB) | payer MEDICARE, SELFPAY ==
[2024-12-03 13:37] LABS: Prothrombin Time Whole Bld POC 37.2 sec (11.1-13.5); ~PT, ~INR - Anti Coag Clinic 3.1 (0.9-1.1)
--- NOTE | 2024-12-03 13:41 | MHC.OFFVISCO ---
Intake Intake Visit Reasons: Anticoagulation Allergies albuterol Adverse Reaction (Intermediate, Verified 12/03/24 13:32) Palpitations amoxicillin (From Augmentin) Adverse Reaction (Intermediate, Verified 12/03/24 13:32) Nausea and Vomiting, dizziness clavulanic acid (From Augmentin) Adverse Reaction (Intermediate, Verified 12/03/24 13:32) Nausea and Vomiting, dizziness Medication List - Last Reconciled 12/03/24 by Lottie Avila RN acetaminophen 1,000 mg PO Q6H PRN acetazolamide 250 mg PO DAILY 30 days MDD RESPIRATORY FAILURE atorvastatin 20 mg PO DAILY azithromycin 250 mg PO 3XW diltiazem HCl CD 120 mg PO DAILY docusate sodium 200 mg PO DAILY empagliflozin (Jardiance) 10 mg PO DAILY flecainide 100 mg PO Q12H fluticasone propion-salmeterol 250-50 mcg/dose 1 inh inhalation Q12H furosemide 80 mg (2 x 40 mg) PO DAILY levalbuterol HCl 1.25 mg (0.5 mL) inhalation Q4H levalbuterol tartrate 45 mcg/actuation 2 inhalations PO Q4-6H PRN multivitamin 1 tab PO DAILY potassium chloride ER 10 mEq PO DAILY sennosides (senna) 25.8 mg PO BEDTIME tiotropium bromide 1.25 mcg/actuation (Spiriva Respimat) 2 puffs inhalation DAILY warfarin See Protocol 7.5 mg orally 7.5 X 4 DAYS/ 5MG X 3 DAYS; Nursing Note INR: 3.1?out of therapeutic range of 2-3 Medications and supplements reviewed Patient status: feels well Medications or supplements: no changes Diet: usual diet. Pt states he has been eating more peanuts and peanut butter recently which can raise the INR. Denies any signs and symptoms of bleeding or clotting or unusual bruising Bleeding, bruising, clotting discussed Nutritional guidance given: add an extra serving of green this week Dose: 5mg X 5 days and 7.5mg X 2 days (Sat & Wed) F/U INR Date: 4 weeks?? Patient verbalizing understanding of instructions given. 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
--- OUTSIDE RECORDS SUMMARY | 2024-12-03 16:51 | XMS_ITS | Encounter Summary ---
Author Organization [facility] Address [address] [place] [address] Care Team Providers Care Avionics Shop Supervisor Name Role Phone Evelyn Valdez MD Primary Care Prov ider Encounter Details Date Type Department Care Team ([facility] st Contact Info) Description 11/16/2024 Results Follow-Up Pulmonology - [place] 175 [facility] [address] [place] [phone] Mica Parikh MD 175 [facility] [address] [place] [address] Social History Tobacco Use Types Packs/Day Years [...] for your loved ones. For example, child and family services specialist or elderly care for an older [...] Date Recorded What is your living situation? Unrecognized valu e 01/06/2024 Sex and Gender Information Value Date Recorded Sex Assigned at Male 04/21/2024 11:38 AM EDT Legal Sex Male 3:18 PM EST Gender Identity Male 04/21/2024 11:38 AM EDT Sexual Orientation Straight 04/21/2024 11 :38 AM EDT Occupation Industry Job Start Date Job End Date RETIRED Not on file Not on file Not on file documented as of this encounter Progress Notes * Mica Parikh MD - 11/19/2024 6:50 PM EDT Please inform patient TSH is unremarkable. * Mica Parikh MD - 11/16/2024 6:17 PM EDT Inform patient, as expected sleep study is positive. Please bring the patient in for [id number] encounter to initiate new CPAP. Okay to overbook in the upcoming month. documented in this encounter Plan of Treatment Upcoming Encounters Date Type Department Care Team (Late st Contact Info) Description 12/14/2024 11:15 AM EST Office Visit Adult Medicine [facility] [address] [place] [phone] Leonardo Swenson PA [address] [place] [address] 02/17/2025 1:30 PM EST Office Visit Orthopedic Surgery - [place] [address] [phone] Donny Hughes DPM [address] [phone] 02/26/2025 3:45 PM EST Office Visit Pulmonology - [place] [address] [phone] Mica Parikh MD [address] [address] 03/11/2025 1:45 PM EST Office Visit [facility] Hematology Oncology [address] [place] [phone] Daphne Rodriguez DO [address] [place] [address] documented as of this encounter Visit Diagnoses Not on filedocumented in this encounter Additional Health Concerns Assessment Noted Time PHQ-9 Depression Total Score: 0 01/06/20 1:14 PM EST A fall risk assessment has been complete d for the patient 01/06/2024 1:11 PM EST documented as of this encounter Care Teams Avionics Shop Supervisor Relationship Specialty Start Date End Date Evelyn Valdez MD [address] [place] [id number] PCP - General Internal Medicine 12/09/18 documented as of this encounter
--- OUTSIDE RECORDS SUMMARY | 2024-12-03 16:51 | XMS_ITS | Encounter Summary ---
Author Organization [facility] Address [address] [place] [address] Care Team Providers Care Radar Repairer Name Role Phone Evelyn Valdez MD Primary Care Prov ider Reason for Visit * Reason Onset Date Comments Faxed Order Yearly INR order 11/12/2024 Encounter Details Date Type Department Care Team ([facility] Contact Info) Description 11/12/2024 Telephone Adult Medicine [facility] [address] [place] [phone] Evelyn Valdez MD [address] [place] [address] Social History Tobacco Use Types Packs/Day Years [...] care for your loved ones. For example, housekeeper child care or elderly care for an older adult? [...] as of this encounter Progress Notes * Nilda Jones - 11/12/2024 1:03 PM EDT PLEASE DOCUMENT/ CLOSE MESSAGE WHEN ORDER HAS BEEN FAXED Faxed order Yearly INR order received from [phone], requesting signature from provider. Pleasesign and fax back to [facility]. Order in [place] [facility] folder documented in this encounter Plan of Treatment Upcoming Encounters Date Type Department Care Team (Late st Contact Info) Description 12/14/2024 11:15 AM EST Office Visit Adult Medicine [facility] [address] [place] [phone] Leonardo Swenson PA [address] [place] [address] 02/17/2025 1:30 PM EST Office Visit Orthopedic Surgery - [place] [id number] [phone] Donny Hughes DPM [address] [phone] 02/26/2025 3:45 PM EST Office Visit Pulmonology - [place] [address] [phone] Mica Parikh MD [address] [phone] 03/11/2025 1:45 PM EST Office Visit [facility] Hematology Oncology [address] [place] [phone] Daphne Rodriguez, [address] [place] [address] documented as of this encounter Visit Diagnoses Not on filedocumented in this encounter Additional Health Concerns Assessment Noted Time PHQ-9 Depression Total Score: 0 01/06/20 24 1:14 PM EST A fall risk assessment has been complete d for the patient 01/06/2024 1:11 PM EST documented as of this encounter Care Teams Radar Repairer Relationship Specialty Start Date End Date Evelyn Valdez MD [address] [place] [address] [place] [address] PCP - General Internal Medicine 12/09/18 documented as of this encounter
--- OUTSIDE RECORDS SUMMARY | 2024-12-03 16:51 | XMS_ITS | Clinical Summary ---
Author Organization [facility] [address] [facility] l[address] Address [address] [place] [address] Phone Care Team Providers Care Cow Rider Name Role Phone Evelyn Valdez MD Primary [...] each day. Mon,wed,Katie y per pulm Active atorvastatin (LIPITOR) 20 mg tablet TAKE 1 TABLET BY MOUTH ONCE DAILY 80 tablet 3 07/21/19 25 Active Jardiance 10 mg tablet TAKE 1 TABLET (10 MG) ORALLY DAILY NEW 08/18/19 25 Active ferrous sulfate 325 mg (65 mg elemental iron) tablet Take 1 tablet (325 mg total) by mouth 1 (one) time each day with breakfast. 90 each 11/19/19 25 Active fluticasone-sa lmeterol (Wixela Inhub) 250-50 mcg/dose diskus inhaler Inhale 1 puff by mouth 2 (two) times a day. Rinse mouth with water after use to reduce aftertaste and incidence of candidiasis. Do not swallow. 1 each 11/24/19 Active tiotropium (SPIRIVA RESPIMAT) 2.5 mcg/actuation inhalation spray Inhale 2 puffs by mouth 1 (one) time each day. 1 each 11/24/19 Active warfarin (COUMADIN) 5 mg tablet TAKE 1 TO 1 AND 1/2 TABLETS BY MOUTH DAILY OR DIRECTED BY MD. MAY CAUSE HEAVY BLEEDING TAKE AT THE SAME TIME EACH DAY AND DO NOT CHANGE DIETARY HABBIT 150 tablet 11/27/19 Active dilTIAZem CD (CARDIZEM CD) 120 mg 24 hr capsule TAKE 1 CAPSULE BY MOUTH DAILY 100 capsule 11/27/19 25 Active predniSONE (DELTASONE) 10 mg tablet TAKE 4 TABS DAILY FOR 3 DAYS. 3TABS DAILY FOR 3 DAYS 2TABS DAILY FOR 3 DAYS 1TAB DAILY FOR 3 DAYS 30 tablet 07/16/19 25 025 Discontinued(Pr escriber Discontinued) dilTIAZem CD (CARDIZEM CD) 120 mg 24 hr capsule TAKE 1 CAPSULE BY MOUTH DAILY 100 capsule 08/04/19 25 025 Discontinued warfarin (COUMADIN) 5 mg tablet TAKE 1-1.5 TABS BY MOUTH DAILY OR DIRECTED BY MD. MAY CAUSE HEAVY BLEEDING. TAKE AT THE SAME TIME EACH DAY AND DO NOT CHANGE DIETARY HABBIT 150 tablet 08/04/19 025 Discontinued tiotropium (SPIRIVA RESPIMAT) 2.5 mcg/actuation inhalation spray Inhale 2 puffs by mouth 1 (one) time each day. 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 Nava. Grade 1 diastolic dysfunction clinically euvolemic and well compensated Diastolic dysfunction, left ventricle 06/30/2021 Overview (11/07/2023): 06/30/2021 Dr. Nava [facility]. No clinical signs central venous congestion. Medical therapy and pulmonary optimization with increased physical activity and breathing exercises recommended. Vascular disease 06/29/2021 DEREK and COPD overlap syndrome ([facility] V24, [facility] V28) 03/24/2021 Atelectasis, left 12/12/2018 Chronically elevated hemidiaphragm 12/12/2018 COPD (chronic obstructive pu lmonary disease) ([facility] V24, CMS/HCC V28) 12/12/2018 Overview (11/07/2023): Moderately severe Vitamin D deficiency 12/12/2018 Paroxysmal atrial fibrillation ([facility] V24, CMS /HCC V28) 12/11/2018 Overview (11/07/2023): On warfarin. Cardioversion 02/2018 Severe obesity (BMI 35.0-39. 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 Anticoagulation- warfarin Encounters Date Type Department Care Team Description 12/02/2024 Telephone [address] [phone] Renan [place], [place] 11/23/2024 2:00 PM EDT Office Visit Pulmonology [facility] [address] [phone] Mica Parikh MD DEREK on CPAP (Primary Dx); COPD with asthma ([facility] V24, [facility] V28); Bronchiectasis without acute exacerbation ([facility] V24, [facility] V28); Ex-smoker; Family history of lung cancer 11/18/2024 1:00 PM EDT Office Visit Orthopedic Surgery - [place] [address] [phone] Donny Hughes DPM Arthritis of both ankles (Primary Dx); Dermatophytosis of nail; Peripheral venous insufficiency 11/18/2024 Telephone [facility] Hematology Oncology [address] [place] [phone] Daphne Rodriguez DO 11/17/2024 1:00 PM EDT Office Visit [facility] Hematology Oncology [address] [place] [phone] Daphne Rodriguez DO Mild anemia (Primary Dx); Other supervisory it specialist (current) drug therapy 11/16/2024 Results Follow-Up Pulmonology [address] [phone] Mica Parikh MD 11/12/2024 Telephone Adult Medicine [address] [phone] Evelyn Valdez MD 10/22/2024 Telephone Pulmonology [address] [phone] Mica Parikh MD 09/24/2024 1:15 PM EDT Office Visit Pulmonology [address] [phone] Mica Parikh MD DEREK on CPAP (Primary Dx); COPD with asthma ([facility] V24, [facility] V28); Bronchiectasis without complication ([facility] V24, [facility] V28); Ex-smoker; Other fatigue 09/24/2024 12:30 PM EDT Ancillary Procedure Pulmonology [address] [phone] Chronic obstructive pulmonary disease, unspecified COPD type ([facility] V24, [facility] V28) 09/23/2024 Telephone Pulmonology [address] [phone] Lo Santos [place] 09/17/2024 1:00 PM EDT - 09/17/2024 11:59 PM EDT Hospital Encounter [address] [phone] Chronic obstructive pulmonary disease, unspecified COPD type ([facility] V24, [facility] V28) Discharge Disposition: Home or Self Care from Last 3 Months Immunizations Immunization Administration Dates Next Due Influenza trivalent, 0.5mL [...] COMMENT: Non obstructive CAD-mild disease APPENDECTOMY PROCEDURE: [place] APPENDECTOMY OTHER SURGICAL HISTORY 09/28/2021 Right PROCEDURE: [place] ENDOVEN ABLTJ INCMPTNT VEIN XTR LASER 1ST VEIN; COMMENT: Dr. Wall Medical History Medical History Date Comments Atrial flutter (CMS/HCC V24, CMS/HCC V28) 12/11/2018 DX:Atrial flutter ([facility]); COM MENT: On warfarin Adrenal adenoma 04/10/2016 [...] 12/12/2018 DX:COPD (chronic o bstructive pulmonary disease) ([facility]); COMMENT: Moderately severe Diverticulosis 09/22/2010 DX:Diverticulosi s; [...] Passive Smoke Exposure: Past Smokeless Tobacco: Former Tobacco Cessation:Counseling Given: Not [...] for your loved ones. For example, children's service supervisor or elderly care for an older adult? [...] Sign Reading Time Taken Comments Blood Pressure 121/58 11/23/2024 2:01 PM EDT Pulse 74 11/23/2024 2:01 PM EDT Temperature 36.6 C (97.8 F) 11/17/2024 12:56 PM EDT Respiratory Rate 19 11/23/2024 2:01 PM EDT Oxygen Saturation 96% 11/23/2024 2:01 PM EDT Inhaled Oxygen Concentration - - Weight 112 kg (247 lb 3.2 oz) 11/23/2024 2:01 PM EDT Height 175.3 cm (5' 9 ) 11/23/2024 2:01 PM EDT Body Mass Index 36.51 11/23/2024 2:01 PM EDT Plan of Treatment Upcoming Encounters Date Type Department Care Team (Late st Contact Info) Description 12/14/2024 11:15 AM EST Office Visit Adult Medicine [facility] [address] [place] [phone] Leonardo Swenson PA [address] [place] [address] 02/17/2025 1:30 PM EST Office Visit Orthopedic Surgery - [place] [address] [phone] Donny Hughes DPM [address] [phone] 02/26/2025 3:45 PM EST Office Visit Pulmonology - [place] [address] [phone] Mica Parikh MD 175 [facility] [address] [place], [place] [phone] 03/11/2025 1:45 PM EST Office Visit [facility] Hematology Oncology [address] [place] [phone] Daphne Rodriguez DO [address] [place] [address] Health Maintenance Due Date Last Done Comments [...] Procedure Name Priority Date/Time Associated Diagnosis Comments THYROID STIMULATING HORMONE WITH REFLEX TO FREE T4 AND FREE T3 Routine 11/19/2024 1:53 PM EDT DEREK on CPAP Other fatigue CBC WITH AUTO DIFFERENTIAL Routine 11/17/2024 1:39 PM EDT Mild anemia VITAMIN D 25 HYDROXY Routine 11/17/2024 1:39 PM EDT Mild anemia Other [facility] (current) drug therapy VITAMIN B12 AND FOLATE Routine 1:39 PM EDT Mild anemia HAPTOGLOBIN Routine 11/17/2024 1:39 PM EDT Mild anemia LACTATE DEHYDROGENASE Routine 11/17/2024 1:39 PM EDT Mild anemia FERRITIN Routine 11/17/2024 1:39 PM EDT Mild anemia IRON AND TIBC Routine 11/17/2024 1:39 PM EDT Mild anemia CBC AND DIFFERENTIAL Routine 11/17/2024 1:39 PM EDT Mild anemia HOME SLEEP TEST Routine 11/03/2024 2:44 PM EDT DEREK on CPAP PULMONARY FUNCTION TESTING Routine 09/24/2024 1:35 PM EDT Chronic obstructive pulmonary disease, unspecified COPD type (CMS/HCC V24, CMS/HCC V28) XR CHEST 2 VIEWS Routine 09/17/2024 1:17 PM EDT Chronic obstructive pulmonary disease, unspecified COPD type (CMS/HCC V24, CMS/HCC V28) CREATININE, SERUM Routine 05/22/2024 2:1 1 PM EDT Adenoma of left adrenal gland LIPID PANEL Routine 03/30/2020 HEPATITIS C SCREENING Routine 06/19/2012 from Last 3 Months or Most Recently Relevant to Health Maintenance Results * Thyroid stimulating hormone with reflex to free t4 and free t3 (11/19/2024 1:53 PM EDT) Pathologist [facility] TSH 2.71 0.40 - 4.00 mcIU/mL LAB CHEMISTRY METHOD 11/19/2024 6:13 PM EDT [facility] Blood Venous blood specimen / Unknown Venipuncture / Unknown 11/19/2024 1:53 PM EDT 11/19/2024 1:53 PM EDT us Mica Parikh MD LAB BLOOD ORDERABLES Final Resul t [facility] [address] [place] [address], * (ABNORMAL) Vitamin B12 and folate (11/17/2024 1:39 PM EDT) Pathologist [facility] Vitamin B-12 599 250 - 900 pcg/mL LAB CHEMISTRY METHOD 11/17/2024 5:46 PM EDT [facility] Folate >20.0(H) 2.8 - 17.0 ng/ml LAB CHEMISTRY METHOD 11/17/2024 5:46 PM EDT [facility] Blood Venous blood specimen / Unknown Venipuncture / Unknown 11/17/2024 1:39 PM EDT 11/17/2024 4:32 PM EDT Daphne Rodriguez DO LAB BLOOD ORDERABLES Final Result [facility] [address] [place] [address], * (ABNORMAL) CBC auto differential (11/17/2024 1:39 PM EDT) WBC 7.4 4.8 - 10.8 K/mcL LAB HEMETOLOGY METHOD 11/17/2024 5:40 PM EDT [facility] RBC 4.80 4.50 - 5.50 M/mcL LAB HEMETOLOGY METHOD 11/17/2024 5:40 PM EDT [facility] Hemoglobin 13.4(L) 13.5 - 17.5 g/dL LAB HEMETOLOGY METHOD 11/17/2024 5:40 PM EDT [facility] Hematocrit 44.1 42.0 - 54.0 % LAB HEMETOLOGY METHOD 11/17/2024 5:40 PM EDT [facility] MCV 91.5 79.0 - 98.0 FL LAB HEMETOLOGY METHOD 11/17/2024 5:40 PM EDT [facility] MCH 27.8 27.0 - 32.0 pcg LAB HEMETOLOGY METHOD 11/17/2024 5:40 PM EDT [facility] MCHC 30.4(L) 32.0 - 37.0 g/dL LAB HEMETOLOGY METHOD 11/17/2024 5:40 PM EDT [facility] RDW 15.9(H) 11.0 - 15.0 % LAB HEMETOLOGY METHOD 11/17/2024 5:40 PM EDT [facility] Platelets 147 130 - 400 K/mcL LAB HEMETOLOGY METHOD 11/17[facility]2024 5:[facility] MPV 10.5 7.0 - 11.0 FL LAB HEMETOLOGY METHOD 11/17/2024 5:40 PM EDT [facility] NRBC 0.0 <1.0 % LAB HEMETOLOGY METHOD 11/17/2024 5:40 PM EDT [facility] NRBC Absolute 0.00 <0.10 K/mcL LAB HEMETOLOGY METHOD 11/17/2024 5:40 PM [facility] Neutrophils Relative 57.1 % LAB HEMETOLOGY METHOD 11/17/2024 5:40 PM T [facility] Comment:This is an appended report. These results have been appended to a previously preliminary verified report. Lymphocytes Relative 15.1 % LAB HEMETOLOGY METHOD 11/17/2024 5:40 PM T [facility] Comment:This is an appended report. These results have been appended to a previously preliminary verified report. Monocytes Relative 25.5 % LAB HEMETOLOGY METHOD 11/17/2024 5:40 PM T [facility] Comment:This is an appended report. These results have been appended to a previously preliminary verified report. Eosinophils Relative 1.8 % LAB HEMETOLOGY METHOD 11/17/2024 5:40 PM T [facility] Comment:This is an appended report. These results have been appended to a previously preliminary verified report. Basophils Relative 0.4 % LAB HEMETOLOGY METHOD 11/17/2024 5:40 PM EDT [facility] Comment:This is an appended report. These results have been appended to a previously preliminary verified report. Immature Granulocytes Relative 0.1 % LAB HEMETOLOGY METHOD 11/17/2024 5:40 PM EDT [facility] Comment:This is an appended report. These results have been appended to a previously preliminary verified report. Neutrophils Absolute 4.23 1.50 - 7.00 K/mcL LAB HEMETOLOGY METHOD 11/17/2024 5:40 PM [facility] Comment:This is an appended report. These results have been appended to a previously preliminary verified report. Lymphocytes Absolute 1.12 1.00 - 5.00 K/mcL LAB HEMETOLOGY METHOD 11/17/2024 5:40 PM [facility] Comment:This is an appended report. These results have been appended to a previously preliminary verified report. Monocytes Absolute 1.89(H) 0.20 - 1.00 K/mcL LAB HEMETOLOGY METHOD 11/17/2024 5:40 PM [facility] Comment:This is an appended report. These results have been appended to a previously preliminary verified report. Eosinophils Absolute 0.13 0.00 - 0.50 K/mcL LAB HEMETOLOGY METHOD 11/17/2024 5:40 PM T [facility] Comment:This is an appended report. These results have been appended to a previously preliminary verified report. Basophils Absolute 0.03 0.00 - 0.20 K/mcL LAB HEMETOLOGY METHOD 11/17/2024 5:40 PM [facility] Comment:This is an appended report. These results have been appended to a previously preliminary verified report. Immature Granulocytes Absolute 0.01 0.00 - 0.03 K/mcL LAB HEMETOLOGY METHOD 11/17/2024 5:40 PM [facility] Comment:This is an appended report. These results have been appended to a previously preliminary verified report. Blood Venous blood specimen / Unknown Venipuncture / Unknown 11/17/2024 1:39 PM EDT 11/17/2024 4:32 PM EDT Daphne Rodriguez DO LAB BLOOD ORDERABLES Final Result Performing Organization Address [facility] Co de Phone Number [facility] [address] [place] [address], [place] [phone] * (ABNORMAL) Iron and TIBC (11/17/2024 1:39 PM EDT) Iron 33(L) 50 - 160 mcg/dL LAB CHEMISTRY METHOD 11/17/2024 5:46 PM EDT [facility] TIBC 329 250 - 450 mcg/dL LAB CHEMISTRY METHOD 11/17/2024 5:46 PM EDT [facility] Iron Saturation 10(L) 20 - 50 % LAB CHEMISTRY METHOD 11/17/2024 5:46 PM EDT [facility] Blood Venous blood specimen / Unknown Venipuncture / Unknown 11/17/2024 1:39 PM EDT 11/17/2024 4:32 PM EDT Daphne Rodriguez DO LAB BLOOD ORDERABLES Final Result Performing Organization Address [facility] Phone Number [facility] [address] [place] [address], [place] [phone] * Vitamin D 25 hydroxy (11/17/2024 1:39 PM EDT) Vit D, 25-Hydroxy 37.2 30.0 - 80.0 ng/mL LAB CHEMISTRY METHOD 11/17/2024 6:35 PM EDT [facility] Blood Venous blood specimen / Unknown Venipuncture / Unknown 11/17/2024 1:39 PM EDT 11/17/2024 4:32 PM EDT Daphne Rodriguez DO LAB BLOOD ORDERABLES Final Result [facility] [address] [place] [address], [place] [phone] * Lactate dehydrogenase (11/17/2024 1:39 PM EDT) Pathologist [facility] LDH 163 120 - 246 unit/L LAB CHEMISTRY METHOD 11/17/2024 5:21 PM EDT [facility] Blood Venous blood specimen / Unknown Venipuncture / Unknown 11/17/2024 1:39 PM EDT 11/17/2024 4:32 PM EDT Daphne Rodriguez DO LAB BLOOD ORDERABLES Final Result [facility] [address] [place] [address], [place] [phone] * Haptoglobin (11/17/2024 1:39 PM EDT) [facility] Haptoglobin 153 16 - 200 mg/dL LAB CHEMISTRY METHOD 11/17/2024 5:21 PM EDT [facility] Blood Venous blood specimen / Unknown Venipuncture / Unknown 11/17/2024 1:39 PM EDT 11/17/2024 4:32 PM EDT Daphne Rodriguez DO LAB BLOOD ORDERABLES Final Result [facility] [address] [place] [address], [place] [phone] * Ferritin (11/17/2024 1:39 PM EDT) Pathologist [facility] Ferritin 31 26 - 388 ng/mL LAB CHEMISTRY METHOD 11/17/2024 5:46 PM EDT [facility] Blood Venous blood specimen / Unknown Venipuncture / Unknown 11/17/2024 1:39 PM EDT 11/17/2024 4:32 PM EDT Daphne Gerardo Michael DO LAB BLOOD ORDERABLES Final Result [facility] [address] [place] [address], * Home sleep test (11/03/2024 2:44 PM EDT) Mica Parikh MD SLEEP CENTER ORDERABLES Final Re sult * XR Chest 2 Views (09/17/2024 1:17 PM EDT) Anatomical Region Laterality Modality Body Radiographic Julienne ging 09/17/2024 1:21 PM EDT Impressions 09/17/2024 1:24 PM EDT No acute pulmonary pathology. -------- FINAL REPORT -------- Dictated By: Lorenza Gracia Dictated Date: 09/17/2024 13:21 ET Assigned Physician: Lorenza Gracia Reviewed and Electronically Signed By: Lorenza Gracia Signed Date: 09/17/2024 13:24 ET Workstation ID: [id number] Transcribed By: Self Edit Transcribed Date: 09/17/2024 [...] Signed Date: 09/17/2024 13:24 ET Workstation ID: [id number] Transcribed By: Self Edit Transcribed Date: 09/17/2024 13:21 ET us Mica Parikh MD IMG XR PROCEDURES Final Result * Creatinine (05/22/2024 2:11 PM EDT) Pathologist [facility] Creatinine 0.84 0.70 - 1.30 mg/dL LAB CHEMISTRY METHOD 05/22/2024 4:35 PM EDT [facility] eGFR 90 >=60 mL/min/1. 73m2 LAB CHEMISTRY METHOD 05/22/2024 4:35 PM EDT [facility] Comment:Calculation based on the Chronic Kidney Disease Epidemiology Collaboration (CKD-EPI) equation refit without adjustment for race. Blood Venous blood specimen / Unknown Venipuncture / Unknown 05/22/2024 2:11 PM EDT 05/22/2024 2:11 PM EDT us Garo Florez MD LAB BLOOD ORDERABLES Final Resul t [facility] [address] [place] [address], [place] [phone] * Lipid panel (03/30/2020) LDL/HDL Ratio 3 [...] of Phone Billing Address Personal/Family Self 1945 [phone] (Work) [address] [address] [employer] Care Teams Cow Rider Relationship Specialty Start Date End Date Evelyn Valdez MD [address] [place] [id number] PCP - General Internal Medicine 12/09/18
--- OUTSIDE RECORDS SUMMARY | 2024-12-03 16:51 | XMS_ITS | Encounter Summary ---
Author Organization [facility] Address [address] [place] [address] Care Team Providers Care Director Sanitation Bureau Name Role Phone Evelyn Valdez MD Primary Care Prov ider Encounter Details Date Type Department Care Team ([facility] st Contact Info) Description 12/02/2024 Telephone Pulmonology - [place] 175 [facility] [address] [place] [address] [place], [place] Social History Tobacco Use Types Packs/Day Years [...] your loved ones. For example, early childhood director or elderly care for an older [...] as of this encounter Progress Notes * Dia Urrutia [place] - 12/02/2024 3:13 PM EDT DME faxed to [facility] for CPAP machine,confirmation received documented in this encounter Plan of Treatment Upcoming Encounters Date Type Department Care Team (Late st Contact Info) Description 12/14/2024 11:15 AM EST Office Visit Adult Medicine - [place] [address] [place] [phone] Leonardo Swenson PA [address] [place] [address] 02/17/2025 1:30 PM EST Office Visit Orthopedic Surgery - [place] [phone] [phone] Donny Hughes DPOleg [address] [phone] 02/26/2025 3:45 PM EST Office Visit Pulmonology - [place] 175 [facility] [address] [place] [phone] Mica Parikh MD 175 [facility] [address] [place] [address] 03/11/2025 1:45 PM EST Office Visit [facility] Hematology Oncology [address] [place] [phone] Daphne Rodriguez DO [address] [place] [address] documented as of this encounter Visit Diagnoses Not on filedocumented in this encounter Additional Health Concerns Assessment Noted Time PHQ-9 Depression Total Score: 0 01/06/20 1:14 PM EST A fall risk assessment has been complete d for the patient 01/06/2024 1:11 PM EST documented as of this encounter Care Teams Director Sanitation Bureau Relationship Specialty Start Date End Date Evelyn Valdez MD [address] [place] [address] PCP - General Internal Medicine 12/09/18 documented as of this encounter
== END 2024-12-03 13:44 | disposition home or self-care (01) ==
LOC: HO.ACS 13:22
PROVIDERS: PCP Internal Medicine; Visit Provider Internal Medicine Medical Oncology
DX: Z79.01 Long term (current) use of anticoagulants (principal)

== ENCOUNTER → 2024-12-03 13:22 | Outpatient (BNVA) | payer MEDICARE, SELFPAY | PROVIDERS: PCP Internal Medicine; Visit Provider Internal Medicine Medical Oncology | DX: I48.19 Other persistent atrial fibrillation (principal); Z86.718 Personal history of other venous thrombosis and embolism; Z51.81 Encounter for therapeutic drug level monitoring; Z79.01 Long term (current) use of anticoagulants | CPT/HCPCS: 85610; 99211 ==

== ENCOUNTER 2024-12-24 13:15 | Outpatient (AMB) | payer MEDICARE, SELFPAY ==
[2024-12-24 13:23] LABS: Prothrombin Time Whole Bld POC 34.8 sec (11.1-13.5); ~PT, ~INR - Anti Coag Clinic 2.9 (0.9-1.1)
--- NOTE | 2024-12-24 13:25 | MHC.OFFVISCO ---
Intake Intake Visit Reasons: Anticoagulation Allergies albuterol Adverse Reaction (Intermediate, Verified 12/24/24 13:23) Palpitations amoxicillin (From Augmentin) Adverse Reaction (Intermediate, Verified 12/24/24 13:23) Nausea and Vomiting, dizziness clavulanic acid (From Augmentin) Adverse Reaction (Intermediate, Verified 12/24/24 13:23) Nausea and Vomiting, dizziness Medication List - Last Reconciled 12/24/24 by Lottie Avila RN acetaminophen 1,000 mg PO Q6H PRN acetazolamide 250 mg PO DAILY 30 days MDD RESPIRATORY FAILURE atorvastatin 20 mg PO DAILY azithromycin 250 mg PO 3XW diltiazem HCl CD 120 mg PO DAILY docusate sodium 200 mg PO DAILY empagliflozin (Jardiance) 10 mg PO DAILY ferrous sulfate 325 mg PO QAM flecainide 100 mg PO Q12H fluticasone propion-salmeterol 250-50 mcg/dose 1 inh inhalation Q12H furosemide 80 mg (2 x 40 mg) PO DAILY levalbuterol HCl 1.25 mg (0.5 mL) inhalation Q4H levalbuterol tartrate 45 mcg/actuation 2 inhalations PO Q4-6H PRN multivitamin 1 tab PO DAILY potassium chloride ER 10 mEq PO DAILY sennosides (senna) 25.8 mg PO BEDTIME tiotropium bromide 2.5 mcg/actuation (Spiriva Respimat) 2 puffs inhalation DAILY tiotropium bromide 1.25 mcg/actuation (Spiriva Respimat) 2 puffs inhalation DAILY warfarin See Protocol 7.5 mg orally 7.5 X 4 DAYS/ 5MG X 3 DAYS; Nursing Note INR: 2.9 in therapeutic range of 2-3 Medications and supplements reviewed. Pt was on a taper dose of prednisone that completed on 12/22/24 and feels much better. No changes in health, diet, medications, or supplements, Denies any signs and symptoms of bleeding or bruising or clotting. Bleeding, bruising, clotting discussed Nutritional guidance given to have a serving of greens today Dose: 5mg X 5 days and 7.5mg X 2 days (Sat & Wed) F/U INR: 4 weeks Patient verbalizes understanding of instructions given Anti-Coag Initial Assessment Social Hx Patient Tobacco Use Status: Former Tobacco user alcohol intake: current Alcohol intake frequency: holidays/special occasions only Coding Level of Care Code Est Patient Level 1 Diagnoses Current use of anticoagulant therapy Z79.01 Assessment & Plan Assessment & Plan (1) Current use of anticoagulant therapy: Code(s): Z79.01 - salvage determiner (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
--- OUTSIDE RECORDS SUMMARY | 2024-12-24 16:35 | XMS_ITS | Encounter Summary ---
Author Organization [facility] Address [address] [place] [address] Care Team Providers Care Batch Plant Operator Name Role Phone Evelyn Valdez MD Primary Care Prov ider Encounter Details Date Type Department Care Team ([facility] st Contact Info) Description 12/15/2024 Results Follow-Up Adult [facility] [address] [place] [address] Leonardo Swenson PA [address] [place] [address] Social History Tobacco Use Types Packs/Day Years Used Date Smoking Tobacco: Former Cigarettes 0.8 Q uit: 03/14/1989 Passive Smoke Exposure: Past [...] for your loved ones. For example, child specialist or elderly care for an older [...] Care Team (Late st Contact Info) Description 02/17/2025 1:30 PM EST Office Visit Orthopedic Surgery - [place] [address] [address] Donny Hughes, DPM 175 [facility] [address] [place] [phone] 02/26/2025 3:45 PM EST Office Visit Pulmonology - [place] 175 [facility] [address] [place] [address] Mica Parikh MD [address] [place] [address] 03/11/2025 1:45 PM EST Office Visit [facility] Hematology Oncology [address] [place] [address] Daphne Rodriguez DO [address] [place] [address] 04/13/2025 1:30 PM EST Office Visit Adult Medicine [facility] [address] [place] [address] Leonardo Swenson PA [address] [place] [address] 08/02/2025 3:00 PM EDT Consult Gastroenterology - [address] [place] [address] 299 [facility] [address] [place] [address] Amy Ventura PA 299 [facility] [address] [place] [address] documented as of this encounter Visit Diagnoses Not on filedocumented in this encounter Additional Health Concerns Assessment Noted Time PHQ-9 Depression Total Score: 0 01/06/20 1:14 PM EST A fall risk assessment has been complete d for the patient 01/06/2024 1:11 PM EST documented as of this encounter Care Teams Batch Plant Operator Relationship Specialty Start Date End Date Evelyn Valdez MD [address] [place] [address] PCP - General Internal Medicine 12/09/18 documented as of this encounter
--- OUTSIDE RECORDS SUMMARY | 2024-12-24 16:35 | XMS_ITS | Encounter Summary ---
Author Organization [facility] Address [address] [place] [address] Care Team Providers Care Annealing Operator Name Role Phone Evelyn Valdez MD Primary Care Prov ider Reason for Visit * Reason Onset Date Comments FYI for Provider 12/16/2024 Encounter Details Date Type Department Care Team ([facility] st Contact Info) Description 12/16/2024 Telephone Adult Medicine - [place] [address] [place] [phone] Evelyn Valdez MD [address] [place], [place] [phone] Social History Tobacco Use Types Packs/Day Years [...] as of this encounter Progress Notes * Mel Loja - 12/16/2024 10:30 AM EST FYI for Provider-Patient calling just to thank Leonardo Messi and let him know that his elbow is doing better. :) documented in this encounter Plan of Treatment Upcoming Encounters Date Type Department Care Team (Late st Contact Info) Description 02/17/2025 1:30 PM EST Office Visit Orthopedic Surgery - [place] 250 175 [facility] [address] [place] [phone] Donny Hughes DPOleg 175 [facility] [address] [place] [phone] 02/26/2025 3:45 PM EST Office Visit Pulmonology - [place] 175 [facility] [address] [place] [phone] Mica Parikh MD [address] [place] [address] 03/11/2025 1:45 PM EST Office Visit [facility] Hematology Oncology [address] [place] [address] Daphne Rodriguez, [address] [place] [address] 04/13/2025 1:30 PM EST Office Visit Adult Medicine [facility] [address] [place] [phone] Leonardo Swenson PA [address] [place] [address] 08/02/2025 3:00 PM EDT Consult Gastroenterology - 299 [facility] 299 [facility] [address] [place] [phone] Amy Ventura PA 299 [facility] [address] [place] [address] documented as of this encounter Visit Diagnoses Not on filedocumented in this encounter Additional Health Concerns Assessment Noted Time PHQ-9 Depression Total Score: 0 01/06/20 1:14 PM EST A fall risk assessment has been complete d for the patient 01/06/2024 1:11 PM EST documented as of this encounter Care Teams Annealing Operator Relationship Specialty Start Date End Date Evelyn Valdez MD [address] [place] [id number] PCP - General Internal Medicine 12/09/18 documented as of this encounter
--- OUTSIDE RECORDS SUMMARY | 2024-12-24 16:35 | XMS_ITS | Clinical Summary ---
Author Organization [facility] [address] [facility] lding Address [address] [place] [address] Phone Care Team Providers Care Wire Photo Operator News Name Role Phone Evelyn Valdez MD Primary [...] (one) time each day. 02/06/20 19 Active acetaZOLAMIDE (DIAMOX) 250 mg tablet 03/16/19 25 Active azithromycin (ZITHROMAX) 250 mg tablet Take 1 tablet (250 mg total) by mouth 1 (one) time each day. Sat,sat,Saturday per pulm Active atorvastatin (LIPITOR) 20 mg [...] day with breakfast. 90 each 11/19/19 25 026 Active fluticasone-sa lmeterol (Wixela Inhub) 250-50 mcg/dose diskus inhaler Inhale 1 puff by mouth 2 (two) times a day. Rinse mouth with water after use to reduce aftertaste and incidence of candidiasis. Do not swallow. 1 each 11/24/19 25 Active tiotropium (SPIRIVA RESPIMAT) 2.5 mcg/actuation inhalation spray Inhale 2 puffs by mouth 1 (one) time each day. 1 each 11/24/19 25 Active warfarin (COUMADIN) 5 mg tablet TAKE 1 TO 1 AND 1/2 TABLETS BY MOUTH DAILY OR DIRECTED BY MD. MAY CAUSE HEAVY BLEEDING TAKE AT THE SAME TIME EACH DAY AND DO NOT CHANGE DIETARY HABBIT 150 tablet 11/27/19 25 Active dilTIAZem CD (CARDIZEM CD) 120 mg 24 hr capsule TAKE 1 CAPSULE BY MOUTH DAILY 100 capsule 11/27/19 25 Active potassium chloride (KLOR-CON M10) 10 mEq CR tablet TAKE 1 TABLET BY MOUTH DAILY 100 tablet 12/09/19 25 Active levalbuterol (XOPENEX HFA) 45 mcg/actuation inhaler Inhale 1-2 puffs by mouth every 6 (six) hours if needed for wheezing. 15 g 11 12/18/19 25 026 Active potassium chloride (KLOR-CON M10) 10 mEq CR tablet TAKE 1 TABLET BY MOUTH DAILY 90 tablet 3 02/06/20 24 025 Discontinued dilTIAZem CD (CARDIZEM CD) 120 mg 24 hr capsule TAKE 1 CAPSULE BY MOUTH DAILY 100 capsule 08/04/19 025 Discontinued warfarin (COUMADIN) 5 mg tablet TAKE 1-1.5 TABS BY MOUTH DAILY OR DIRECTED BY MD. MAY CAUSE HEAVY BLEEDING. TAKE AT THE SAME TIME EACH DAY AND DO NOT CHANGE DIETARY HABBIT 150 tablet 08/04/19 025 Discontinued predniSONE (DELTASONE) 20 mg tablet Take 3 tabs (60mg) daily for 3 days, then take 2 tabs (40mg) daily for 3 days, then take 1 tab (20mg) daily for 3 days. 18 tablet 12/15/19 025 Active Problems Problem Noted Date Diagnosed Date Oxygen dependent 08/11/2024 History of pneumonia 08/11/2024 Chronic deep vein thrombosis (DVT) of lower extremity ([facility] V24, CMS/HCC V28) 11/07/2023 Overview (11/07/2023): Recurrent Diastolic heart failure ([facility] V24, [facility] V2 8) 07/06/2021 Overview (11/07/2023): Dr. Nava. Grade 1 diastolic dysfunction clinically euvolemic and well compensated Diastolic dysfunction, left ventricle 06/30/2021 Overview (11/07/2023): 06/30/2021 Dr. Nava [place] [facility]. No clinical signs central venous congestion. Medical therapy and pulmonary optimization with increased physical activity and breathing exercises recommended. Vascular disease 06/29/2021 DEREK and COPD overlap syndrome ([facility] V24, CMS/ HCC V28) 03/24/2021 Atelectasis, left 12/12/2018 Chronically elevated hemidiaphragm 12/12/2018 COPD (chronic obstructive pu lmonary disease) ([facility] V24, CMS/HCC V28) 12/12/2018 Overview (11/07/2023): Moderately severe Vitamin D deficiency 12/12/2018 Paroxysmal atrial fibrillation ([facility] V24, CMS /HCC V28) 12/11/2018 Overview (11/07/2023): On warfarin. Cardioversion 02/2018 Severe obesity (BMI 35.0-39. 9) with comorbidity (CMS/HCC V24, CMS/HCC V28) 08/08/2016 Adrenal adenoma 04/10/2016 Aortic valve [...] leg 1989, PE and DVT recurrent 02/1990, [place] filter placed. Anticoagulation- warfarin Encounters Date Type Department Care Team Description 12/16/2024 Telephone Adult [address] [phone] Evelyn Valdez MD 12/15/2024 Results Follow-Up Adult [address] [phone] Leonardo Swenson PA 12/14/2024 2:45 PM EST - 12/14/2024 11:59 PM EST Hospital Encounter XRAY [facility] [place] [address] [place] [address] Pain and swelling of left elbow Discharge Disposition: Home or Self Care 12/14/2024 11:55 AM EST Lab Draw Station - [address] Pain and swelling of left elbow; Arthralgia, unspecified joint 12/14/2024 11:15 AM EST Office Visit Adult [address] [phone] Leonardo Swenson PA DEREK and COPD overlap syndrome (CMS/HCC V24, CMS/HCC V28) (Primary Dx); Chronic bronchitis, unspecified chronic bronchitis type (CMS/HCC V24, CMS/HCC V28); Oxygen dependent; Paroxysmal atrial fibrillation (CMS/HCC V24, CMS/HCC V28); Ischemic cardiomyopathy; Primary hypertension; Anemia, unspecified type; Vascular disease; Pain and swelling of left elbow; Arthralgia, unspecified joint 12/14/2024 Results Follow-Up Adult [address] [phone] Leonardo Swenson PA 12/02/2024 Telephone Pulmonology - [place] [address] [facility] [address] [place] [address] Dia Urrutia [place] 11/23/2024 2:00 PM EDT Office Visit Pulmonology [facility] [address] [phone] Mica Parikh MD DEREK on CPAP (Primary Dx); COPD with asthma ([facility] V24, [facility] V28); Bronchiectasis without acute exacerbation ([facility]/HCC V24, [facility] V28); Ex-smoker; Family history of lung cancer 11/18/2024 1:00 PM EDT Office Visit Orthopedic Surgery [facility] [address] [phone] Donny Hughes DPM Arthritis of both ankles (Primary Dx); Dermatophytosis of nail; Peripheral venous insufficiency 11/18/2024 Telephone [facility] Hematology Oncology [address] [place] [phone] Daphne Rodriguez DO 11/17/2024 1:00 PM EDT Office Visit [facility] Hematology Oncology [address] [place] [phone] Daphne Rodriguez DO Mild anemia (Primary Dx); Other half-way (current) drug therapy 11/16/2024 Results Follow-Up Pulmonology [address] [phone] Mica Parikh MD 11/12/2024 Telephone Adult Medicine [address] [phone] Evelyn Valdez MD 10/22/2024 Telephone Pulmonology [facility] [address] [phone] Mica Parikh MD 09/24/2024 1:15 PM EDT Office Visit Pulmonology [address] [phone] Mica Parikh MD DEREK on CPAP (Primary Dx); COPD with asthma ([facility] V24, [facility] V28); Bronchiectasis without complication ([facility] V24, [facility] V28); Ex-smoker; Other fatigue 09/24/2024 12:30 PM EDT Ancillary Procedure Pulmonology - [place] [address] [facility] [address] [place] [address] Chronic obstructive pulmonary disease, unspecified COPD type ([facility] V24, [facility] V28) 09/23/2024 Telephone Pulmonology - [place] [address] [facility] 200 [place] [address] Lo Santos MA from Last 3 Months Immunizations Immunization Administration Dates Next Due Influenza Quadravalent, 0.5m l (Fluad) 65yo and older 11/15/2022,11/01/2021 Influenza trivalent, 0.5mL ( Fluzone High-dose) 65yo and older 11/25/2023,11/15/2022 Influenza trivalent, with pr eservative (Fluzone; Afluria) 6mo and older 11/01/2021 Moderna (age 6mo & older) Bi valent, COVID-19, 0.5 mL or 0.25 mL dosage 11/01/2021 Moderna SARS-CoV-2 COVID-19, mRNA, LNP-S, preservative free 05/05/2021,04/13/2020,03/05/2020 Pneumococcal conjugate 13 va lent (Prevnar 13, PCV13) 2mo and older 11/12/2014 Pneumococcal polysaccharide 23 valent (Pneumovax 23) 2yo and older 10/27/2012 RSV, bivalent, protein subun it RSVpreF, 0.5mL, Preservative Free (ABRYSVO) 50yo and older or 32 through 36 wks of 11/25/2023 Respiratory syncytial virus (RSV), unspecified 11/25/2023 Tdap Tetanus diptheria acell ular pertussis (Boostrix; Adacel) 7yo and older 12/16/2023,06/25/2011 Zoster recombinant (Shingrix ) 19yo and older 11/14/2018,10/06/2018,09/14/2018,07/27 Surgical History Surgery Date Site/Laterality Comments OTHER [...] History Medical History Date Comments Atrial flutter ([facility] V24, [facility] V28) 12/11/2018 DX:Atrial flutter ([facility]); COM MENT: On warfarin Adrenal [...] hemidiaphragm COPD (chronic obstructive pu lmonary disease) ([facility] V24, [facility] V28) 12/12/2018 DX:COPD (chronic o bstructive pulmonary disease) ([facility]); COMMENT: Moderately severe Diverticulosis 09/22/2010 [...] care for your loved ones. For example, children teacher or elderly care for an [...] Sign Reading Time Taken Comments Blood Pressure 124/58 12/14/2024 11:00 AM EST Pulse 84 12/14/2024 11:00 AM EST Temperature 36.6 C (97.8 F) 11/17/2024 12:56 PM EDT Respiratory Rate 19 11/23/2024 2:01 PM EDT Oxygen Saturation 96% 11/23/2024 2:01 PM EDT Inhaled Oxygen Concentration - - Weight 113 kg (249 lb 8.6 oz) 12/14/2024 11:00 A M EST Height 175.3 cm (5' 9 ) 12/14/2024 11:00 AM EST Body Mass Index 36.85 12/14/2024 11:00 AM EST Plan of Treatment Upcoming Encounters Date Type Department Care Team (Late st Contact Info) Description 02/17/2025 1:30 PM EST Office Visit Orthopedic Surgery - [place] [address] [facility] 250 [place] [phone] Donny Hughes DPM [address] [facility] [address] [place] [phone] 02/26/2025 3:45 PM EST Office Visit Pulmonology - [place] [address] [facility] 200 [place] [phone] Mica Parikh MD [address] [place] [phone] 03/11/2025 1:45 PM EST Office Visit [facility] Hematology Oncology [address] [place] [phone] Daphne Rodriguez DO [address] [place] [address] 04/13/2025 1:30 PM EST Office Visit Adult Medicine - [place] [address] [place] [phone] Leonardo Swenson PA [address] [place] [address] 08/02/2025 3:00 PM EDT Consult Gastroenterology - [address] [facility] [address] [facility] [address] [place] [phone] Amy Ventura PA [address] [facility] [address] [place] [address] Health Maintenance Due Date Last Done Comments Depression Screening 02/12/2024 01/06/2024 COVID-19 Vaccine ( season) 2024 11/25/2023, 11/15/2022, 11/01/2021, Additional history exists Influenza Vaccine (#1) 2024 , 11/15/2022, 11/15/2022, Additional history exists Falls Risk Assessment 01/05/2025 01/06/2024 Medicare Annual [...] history exists RSV Immunization Adult Patients Completed 11/25/2023, 11/25/2023 RSV Immunization Patients Under 20 months Aged Out 11/25/2023 No longer eligible based on patient's age to complete this topic HIB Vaccines Aged Out No longer eligi [...] Associated Diagnosis Comments XR ELBOW 3+ VIEWS LEFT Routine 2:58 PM EST Pain and swelling of left elbow BORRELIA BURGDORFERI ANTIBODY Routine 12/14/2024 11:52 AM EST Arthralgia, unspecified joint URIC ACID Routine 12/14/2024 11:52 AM EST Pain and swelling of left elbow THYROID STIMULATING HORMONE WITH REFLEX TO FREE T4 AND FREE T3 Routine 11/19/2024 1:53 PM EDT DEREK on CPAP Other fatigue CBC WITH AUTO DIFFERENTIAL Routine 11/17/2024 1:39 PM EDT Mild anemia VITAMIN D 25 HYDROXY Routine 11/17/2024 1:39 PM EDT Mild anemia Other 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 Elbow joint effusion. Medial epicondylitis. Chondrocalcinosis. -------- FINAL REPORT -------- Dictated By: Lorenza Gracia Dictated Date: 12/14/2024 14:59 ET Assigned Physician: Lorenza Gracia Reviewed and Electronically Signed By: Lorenza Gracia Signed Date: 12/14/2024 15:04 ET Workstation ID: [id number] Transcribed By: Self Edit Transcribed Date: 12/14/2024 14:59 ET Narrative 12/14/2024 3:04 PM EST LEFT ELBOW VIEWS: 3 HISTORY: Elbow redness and swelling. FINDINGS: There is a coarse soft tissue calcification adjacent to the medial epicondyle. There is faint calcification of the humeral radial joint space. There is soft tissue swelling overlying the elbow, particularly the olecranon region. There is an elbow joint effusion. There is no acute fracture, malalignment, or radiopaque foreign body. Procedure Note Lorenza Gracia MD - 12/14/2024 LEFT ELBOW VIEWS: 3 HISTORY: Elbow redness and swelling. FINDINGS: There is a coarse soft tissue calcification adjacent to themedial epicondyle. There is faint calcification of the humeral radial joint space. There is soft tissue swelling overlying the elbow, particularly theolecranon region. There is an elbow joint effusion. There is no acute fracture, malalignment, or radiopaque foreign body. IMPRESSION: Soft tissue swelling. Elbow joint effusion. Medial epicondylitis.Chondrocalcinosis. -------- FINAL REPORT -------- Dictated By: Lorenza Gracia Dictated Date: 12/14/2024 14:59 ET Assigned Physician: Lorenza Gracia Reviewed and Electronically Signed By: Lorenza Gracia Signed Date: 12/14/2024 15:04 ET Workstation ID: [id number] Transcribed By: Self Edit Transcribed Date: 12/14/2024 14:59 ET Leonardo WING IMG XR PROCEDURES Final Result * Borrelia burgdorferi antibody (12/14/2024 11:52 AM EST) [facility] Lyme Ab Negative Negative LAB CHEMISTRY METHOD 12/15/2024 9:30 AM EST [facility] Comment: No laboratory evidence of infection with B. burgdorferi (Lyme disease). Negative results may occur in patients recently infected (<=14 days) with B. burgdorferi. If recent infection is suspected, repeat testing on a new sample collected in 7- 14 days is recommended. Blood Venous blood specimen / Unknown Venipuncture / Unknown 12/14/2024 11:52 AM EST 12/14/2024 11:52 AM EST Leonardo WING LAB BLOOD ORDERABLES Final Res ult Performing Organization Address City/[facility]/ZIP Co de Phone Number [facility] [address] [place] [address], * Uric acid (12/14/2024 11:52 AM EST) Uric Acid 3.9 3.7 - 9.2 mg/dL LAB CHEMISTRY METHOD 12/14/2024 4:[address] [facility] Blood Venous blood specimen / Unknown Venipuncture / Unknown 12/14/2024 11:52 AM EST 12/14/2024 11:52 AM EST Leonardo WING LAB BLOOD ORDERABLES Final Res ult Performing Organization Address [facility]/ZIP Co de Phone Number [facility] [address] [place] [address], * Thyroid stimulating hormone with reflex to free t4 and free t3 (11/19/2024 1:53 PM EDT) TSH 2.71 0.40 - 4.00 mcIU/mL LAB CHEMISTRY METHOD 11/19/2024 6:[address] [facility] Blood Venous blood specimen / Unknown Venipuncture / Unknown 11/19/2024 1:53 PM EDT 11/19/2024 1:53 PM EDT Mica Parikh MD LAB BLOOD ORDERABLES Final Resul t Performing Organization Address City/[facility]/ZIP Co de Phone Number [facility] [address] [place] [address], [place] [phone] * (ABNORMAL) Vitamin B12 and folate (11/17/2024 1:39 PM EDT) [facility] Vitamin B-12 599 250 - 900 pcg/mL LAB CHEMISTRY METHOD 11/17/2024 5:[address] [facility] Folate >20.0(H) 2.8 - 17.0 ng/ml LAB CHEMISTRY METHOD 11/17/2024 5:[address] [facility] Blood Venous blood specimen / Unknown Venipuncture / Unknown 11/17/2024 1:39 PM EDT 11/17/2024 4:32 PM EDT Daphne Rodriguez DO LAB BLOOD ORDERABLES Final Result [facility] [address] [place] [address], * (ABNORMAL) CBC auto differential (11/17/2024 1:39 PM EDT) [facility] WBC 7.4 4.8 - 10.8 K/mcL LAB HEMETOLOGY METHOD 11/17/2024 5:[address] [facility] RBC 4.80 4.50 - 5.50 M/mcL LAB HEMETOLOGY METHOD 11/17/2024 5:[address] [facility] Hemoglobin 13.4(L) 13.5 - 17.5 g/dL LAB HEMETOLOGY METHOD 11/17/2024 5:[address] [facility] Hematocrit 44.1 42.0 - 54.0 % LAB HEMETOLOGY METHOD 11/17/2024 5:[address] [facility] MCV 91.5 79.0 - 98.0 FL LAB HEMETOLOGY METHOD 11/17/2024 5:[address] [facility] MCH 27.8 27.0 - 32.0 pcg LAB HEMETOLOGY METHOD 11/17/2024 5:[address] [facility] MCHC 30.4(L) 32.0 - 37.0 g/dL LAB HEMETOLOGY METHOD 11/17/2024 5:[address] [facility] RDW 15.9(H) 11.0 - 15.0 % LAB HEMETOLOGY METHOD 11/17/2024 5:[address] [facility] Platelets 147 130 - 400 K/mcL LAB HEMETOLOGY METHOD 11/17/2024 5:[address] [facility] MPV 10.5 7.0 - 11.0 FL LAB HEMETOLOGY METHOD 11/17/2024 5:[address] [facility] NRBC 0.0 <1.0 % LAB HEMETOLOGY METHOD 11/17/2024 5:40 PM [facility] NRBC Absolute 0.00 <0.10 K/mcL LAB HEMETOLOGY METHOD 11/17/2024 5:[address] [facility] Neutrophils Relative 57.1 % LAB HEMETOLOGY METHOD 11/17/2024 5:[address] [facility] Comment:This is an appended report. These results have been appended to a previously preliminary verified report. Lymphocytes Relative 15.1 % LAB HEMETOLOGY METHOD 11/17/2024 5:[address] [facility] Comment:This is an appended report. These results have been appended to a previously preliminary verified report. Monocytes Relative 25.5 % LAB HEMETOLOGY METHOD 11/17/2024 5:[address] [facility] Comment:This is an appended report. These results have been appended to a previously preliminary verified report. Eosinophils Relative 1.8 % LAB HEMETOLOGY METHOD 11/17/2024 5:[address] [facility] Comment:This is an appended report. These results have been appended to a previously preliminary verified report. Basophils Relative 0.4 % LAB HEMETOLOGY METHOD 11/17/2024 5:[address] [facility] Comment:This is an appended report. These results have been appended to a previously preliminary verified report. Immature Granulocytes Relative 0.1 % LAB HEMETOLOGY METHOD 11/17/2024 5:40 PM [facility] Comment:This is an appended report. These results have been appended to a previously preliminary verified report. Neutrophils Absolute 4.23 1.50 - 7.00 K/mcL LAB HEMETOLOGY METHOD 11/17/2024 5:40 PM [facility] Comment:This is an appended report. These results have been appended to a previously preliminary verified report. Lymphocytes Absolute 1.12 1.00 - 5.00 K/mcL LAB HEMETOLOGY METHOD 11/17/2024 5:40 PM [facility] Comment:This is an appended report. These results have been appended to a previously preliminary verified report. Monocytes Absolute 1.89(H) 0.20 - 1.00 K/mcL LAB HEMETOLOGY METHOD 11/17/2024 5:40 PM [facility] Comment:This is an appended report. These results have been appended to a previously preliminary verified report. Eosinophils Absolute 0.13 0.00 - 0.50 K/mcL LAB HEMETOLOGY METHOD 11/17/2024 5:40 PM [facility] Comment:This is an appended report. These results have been appended to a previously preliminary verified report. Basophils Absolute 0.03 0.00 - 0.20 K/mcL LAB HEMETOLOGY METHOD 11/17/2024 5:40 PM [facility] Comment:This is an appended report. These results have been appended to a previously preliminary verified report. Immature Granulocytes Absolute 0.01 0.00 - 0.03 K/mcL LAB HEMETOLOGY METHOD 11/17/2024 5:40 PM [facility] Comment:This is an appended report. These results have been appended to a previously preliminary verified report. Blood Venous blood specimen / Unknown Venipuncture / Unknown 11/17/2024 1:39 PM EDT 11/17/2024 4:32 PM EDT Daphne Onealnellie Rodriguez LAB BLOOD ORDERABLES Final Result Performing Organization Address [facility]/ZIP Co de Phone Number [facility] [address] [place] [address], [place] [phone] * (ABNORMAL) Iron and TIBC (11/17/2024 1:39 PM EDT) Iron 33(L) 50 - 160 mcg/dL LAB CHEMISTRY METHOD 11/17/2024 5:[address] [facility] TIBC 329 250 - 450 mcg/dL LAB CHEMISTRY METHOD 11/17/2024 5:[address] [facility] Iron Saturation 10(L) 20 - 50 % LAB CHEMISTRY METHOD 11/17/2024 5:[address] [facility] Blood Venous blood specimen / Unknown Venipuncture / Unknown 11/17/2024 1:39 PM EDT 11/17/2024 4:32 PM EDT Daphne Gerardo Michael ANAND LAB BLOOD ORDERABLES Final Result Performing Organization Address [facility] de Phone Number [facility] [address] [place] [address], [place] [phone] * Vitamin D 25 hydroxy (11/17/2024 1:39 PM EDT) Vit D, 25-Hydroxy 37.2 30.0 - 80.0 ng/mL LAB CHEMISTRY METHOD 11/17/2024 6:[address] [facility] Blood Venous blood specimen / Unknown Venipuncture / Unknown 11/17/2024 1:39 PM EDT 11/17/2024 4:32 PM EDT Daphne Humaira Rodriguez DO LAB BLOOD ORDERABLES Final Result Performing Organization Address City/[facility]/ZIP Co de Phone Number [facility] [address] [place] [address], [place] [phone] * Lactate dehydrogenase (11/17/2024 1:39 PM EDT) LDH 163 120 - 246 unit/L LAB CHEMISTRY METHOD 11/17/2024 5:[address] [facility] Blood Venous blood specimen / Unknown Venipuncture / Unknown 11/17/2024 1:39 PM EDT 11/17/2024 4:32 PM EDT Daphnecm Onealnellie Rodriguez DO LAB BLOOD ORDERABLES Final Result Performing Organization Address [facility]/ZIP Co de Phone Number [facility] [address] [place] [address], [place] [phone] * Haptoglobin (11/17/2024 1:39 PM EDT) Haptoglobin 153 16 - 200 mg/dL LAB CHEMISTRY METHOD 11/17/2024 5:[address] [facility] Blood Venous blood specimen / Unknown Venipuncture / Unknown 11/17/2024 1:39 PM EDT 11/17/2024 4:32 PM EDT Daphnecm Onealnellie Rodriguez DO LAB BLOOD ORDERABLES Final Result Performing Organization Address City/[facility]/ZIP Co de Phone Number [facility] [address] [place] [address], [place] [phone] * Ferritin (11/17/2024 1:39 PM EDT) Ferritin 31 26 - 388 ng/mL LAB CHEMISTRY METHOD 11/17/2024 5:[address] [facility] Blood Venous blood specimen / Unknown Venipuncture / Unknown 11/17/2024 1:39 PM EDT 11/17/2024 4:32 PM EDT Daphne Rodriguez DO LAB BLOOD ORDERABLES Final Result Performing Organization Address [facility] Co de Phone Number [facility] [address] [place] [address], * Home sleep test (11/03/2024 2:44 PM EDT) Mica Parikh MD [facility]ENTER ORDERABLES Final Re sult * Creatinine (05/22/2024 2:11 PM EDT) Creatinine 0.84 0.70 - 1.30 mg/dL LAB CHEMISTRY METHOD 05/22/2024 4:[address] [facility] eGFR 90 >=60 mL/min/1. 73m2 LAB CHEMISTRY METHOD 05/22/2024 4:[address] [facility] Comment:Calculation based on the Chronic Kidney Disease Epidemiology Collaboration (CKD-EPI) equation refit without adjustment for race. Blood Venous blood specimen / Unknown Venipuncture / Unknown 05/22/2024 2:11 PM EDT 05/22/2024 2:11 PM EDT Garo Florez MD LAB BLOOD ORDERABLES Final Resul t Performing Organization Address [facility] Co de Phone Number [facility] [address] [place] [address], [place] [phone] * Lipid panel (03/30/2020) LDL/HDL Ratio 3 [...] of Phone Billing Address Personal/Family Self 1945 [phone] (Work) [phone] [place] [address] [employer] MED[employer] Care Teams Wire Photo Operator News Relationship Specialty Start Date End Date Evelyn Valdez MD [address] [place] [phone] PCP - General Internal Medicine 12/09/18
--- OUTSIDE RECORDS SUMMARY | 2024-12-24 16:35 | XMS_ITS | Encounter Summary ---
Author Organization [facility] Address [address] [place] [address] Care Team Providers Care Supervisor Coin Machine Name Role Phone Evelyn Valdez MD Primary Care Prov ider Encounter Details Date Type Department Care Team ([facility] st Contact Info) Description 11/16/2024 Results Follow-Up Pulmonology - [place] [address] [facility] [address] [place] [address] Mica Parikh MD 230 [place] [address] Social History Tobacco Use Types Packs/Day Years [...] your loved ones. 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 Please bring the patient in for [id number] encounter to initiate new CPAP. Okay to overbook in the upcoming month. documented in this encounter Plan of Treatment Upcoming Encounters Date Type Department Care Team (Late st Contact Info) Description 02/17/2025 1:30 PM EST Office Visit Orthopedic Surgery - [place] 250 175 [facility] 250 [place] [address] Donny Hughes DPM 175 [facility] 250 [place] [address] 02/26/2025 3:45 PM EST Office Visit Pulmonology - [place] 175 [facility] 200 [place] [address] Mica Parikh MD 230 [place] [address] 03/11/2025 1:45 PM EST Office Visit [facility] Hematology Oncology [address] [place] [address] Daphne Rodriguez DO [address] [place] [address] 04/13/2025 1:30 PM EST Office Visit Adult Medicine - [place] 230 [place] [address] Leonardo Swenson PA 230 [place] [address] 08/02/2025 3:00 PM EDT Consult Gastroenterology - 299 [facility] 299 [facility] 419 [place] [address] Amy Ventura PA 299 [facility] 419 [place] [address] documented as of this encounter Visit Diagnoses Not on filedocumented in this encounter Additional Health Concerns Assessment Noted Time PHQ-9 Depression Total Score: 0 01/06/20 1:14 PM EST A fall risk assessment has been complete d for the patient 01/06/2024 1:11 PM EST documented as of this encounter Care Teams Supervisor Coin Machine Relationship Specialty Start Date End Date Evelyn Valdez MD [address] [place] [address] PCP - General Internal Medicine 12/09/18 documented as of this encounter
--- OUTSIDE RECORDS SUMMARY | 2024-12-24 16:35 | XMS_ITS | Encounter Summary ---
Author Organization [facility] Address [address] [place] [address] Care Team Providers Care Hide Spreader Name Role Phone Evelyn Valdez MD Primary Care Prov ider Encounter Details Date Type Department Care Team ([facility] st Contact Info) Description 12/14/2024 Results Follow-Up Adult [facility] 230 [place] [address] Leonardo Swenson PA 230 [place] [address] Social History Tobacco Use Types Packs/Day Years [...] for your loved ones. For example, childcare provider or elderly care for an older adult? [...] PM EST Office Visit Orthopedic Surgery - [place] [address] [address] Donny Hughes, DPM 175 [facility] 250 [place] [address] 02/26/2025 3:45 PM EST Office Visit Pulmonology - [place] 175 [facility] 200 [place] [address] Mica Parikh MD 230 [place] [address] 03/11/2025 1:45 PM EST Office [facility] Hematology Oncology [address] [place] [address] Daphne Rodriguez DO [address] [place] [address] 04/13/2025 1:30 PM EST Office Visit Adult Medicine [facility] 230 [place] [address] Leonardo Swenson PA 230 [place] [address] 08/02/2025 3:00 PM EDT Consult Gastroenterology - [address] [place] [address] 299 [facility] 419 [place] [address] Amy Ventura PA 299 [facility] 419 [place] [address] documented as of this encounter Visit Diagnoses Not on filedocumented in this encounter Additional Health Concerns Assessment Noted Time PHQ-9 Depression Total Score: 0 01/06/20 1:14 PM EST A fall risk assessment has been complete d for the patient 01/06/2024 1:11 PM EST documented as of this encounter Care Teams Hide Spreader Relationship Specialty Start Date End Date Evelyn Valdez MD 230 [place] [address] PCP - General Internal Medicine 12/09/18 documented as of this encounter
--- OUTSIDE RECORDS SUMMARY | 2024-12-24 16:35 | XMS_ITS | Data Portability ---
Author Organization [place] [facility] Address [address] [place] [address] Assessment Encounter Date Assessment Date Assessment LastModified [...] arrived. Verbal and written report given to [facility]. Time On Scene with Patient: 01:05:55 - Emergent 911 transport: Patient is critically ill and required immediate transport by a 911/emergency vehicle due to critical illness requiring immediate intervention [email or web address] Not available 02/12/2022 09:40:35 Plan of Treatment Reminders Order Date Submit Date Provider Last Modified By Organization Details Last Modified Time Details Appointments None recorded. Lab rapid SARS CoV 2 Ag, QL IA, respiratory specimen 2021 022 stephen z783 [facility], [address] [place] [address], [phone], 16:28:01 Referral None recorded. Procedures None recorded. Surgeries None recorded. Imaging None recorded. Medication Orders None recorded. Patient TargetsNo targets recorded. Patient Instructions Encounter Date Encounter Id Patient Instructions Last Modified By Organization Details Last Modified Time 02/06/2022 [id number] shortness of breath: care instructions [id number] Not available 02/06/2022 16:01:31 [facility] yo [facility] We cannot always find the exact [...] condition between 8am-10pm, please call [facility] at [phone] to help navigate your care. [email or web address] [id number] Not available 02/07/2022 20:23:27 Reason for Referral None Reported. Results Created Date Observation Date Name Description Value Unit Range Abnormal Flag Note LastModifiedBy Organization Detail LastModifiedTime 02/07/20 22 02/06/2022 rapid SARS CoV 2 Ag, QL IA, respi rator y speci men Covid-19 (ref: neg) negati ve Not Available [facility] - Home [address] [place], [address], 02/06/2022 16:02:13 02/07/20 22 02/06/2022 rapid SARS CoV 2 Ag, QL IA, respi rator y speci men Control Visual ized/V alid Not Available [facility] - Home [address] [place], [address], 02/06/2022 16:02:13 02/07/20 22 02/06/2022 rapid SARS CoV 2 Ag, QL IA, respi rator y speci men Location [facility], Dispat [facility] Vivian keenan [facility], [address] [place] [address], [id number] Not Available Spr - Home [address] [place], [address], 02/06/2022 16:02:13 Result Notes None recorded. Medical Equipment None Reported. Allergies Allergen ID Allergen Name Allergen Category Reaction Reaction Severity Criticality Documentation Date Start Date Code Code System Note Provider Name and Address Organization Details Recorded Time 528265 Augmentin medicatio n Not available Not available Not available 02/06/2022 64829 2 RxNorm August JOSE Gu [address] [place], [address], [place] [facility] 15:54:26 Medications Name Sig Start Date [...] blood by Pulse oximetry Heart rate Systolic And Diastolic Provider Name and Address Organization Details Last Updated DateTime 2 100.2 [degF] 24 /min 89 % 89 % 77 /min 142/78 mm[Hg] August JOSE Gu [address] [place], [address], [place] [facility] 2 20:29:19 Social History None recorded. Functional Status None recorded. Mental Status None recorded. Family History Nothing Reported. Medical History Condition Response Diabetes N Coronary Artery Disease Y CHF Y Parkinson's Disease N Cancer N Stroke N Dementia N Hypothyroidism N Depression N COPD Y Asthma N High Cholesterol Y Rheumatoid Arthritis N Pulmonary Embolism N Hypertension Y Osteoporosis N A-fib N Kidney Disease N Past Encounters Encounter ID Performer Location Encounter Start Date Encounter Closed Date Diagnosis/Indication Diagnosis SNOMED-CT Code Diagnosis ICD10 Code Diagnosis IMO Codes Diagnosis Note [id number] August JOSE uG [facility] [address] [place] [address] 02/06/2022 15:51:42 02/13/2022 11:31:27 Dyspnea at rest 677110960 R06.00 Acute hypo xemic respiratory failure 351543487 J96.01 Health Concerns Section Related Observation LastModified by Organization Detai ls LastModified Time None Recorded Concern Status LastModified by Organization Details LastModified Time None Recorded Advance Directives Directive None Recorded Payers Insurance Date Sequence Insurance Name Policy Number Policy Contreras Covered Member ID Contreras Member ID Guarantor Name 02/06/2022 1 *SELF PAY* Jay Krishnamurthyers [id number] Jay Krishnamurthyers 02/13/2022 2 [place]IC[place]: [facility] Jay Krishnamurthyers [id number] Jay Janet 02/13/2022 1 [place] [facility] Jay Krishnamurthyers [id number] Jay Janet 02/13/2022 1 [facility] (MEDICARE REPLACEMENT/A DVANTAGE - PPO) [id number] aJy Krishnamurthyers [id number] Jay Janet 02/13/2022 1 [facility] (MEDICARE REPLACEMENT/A DVANTAGE - PPO) [id number] Jay Krishnamurthyers [id number] Jay Krishnamurthyers Notes Date Note Type Note Provider Name and Address Organization Details Recorded Time 02/06/2022 text/html General HPI Template - DHReported by Patient 76 YO M patient establishing care with [...] November. August JOSE Gu [address], [place], [address], [place] [facility] 02/12/2022 09:40:47
== END 2024-12-24 13:36 | disposition home or self-care (01) ==
LOC: HO.ACS 13:15
PROVIDERS: PCP Internal Medicine; Visit Provider Internal Medicine Medical Oncology
DX: Z79.01 Long term (current) use of anticoagulants (principal)

== ENCOUNTER → 2024-12-24 13:15 | Outpatient (BNVA) | payer MEDICARE, SELFPAY | PROVIDERS: PCP Internal Medicine; Visit Provider Internal Medicine Medical Oncology | DX: I48.19 Other persistent atrial fibrillation (principal); I82.409 Acute embolism and thrombosis of unspecified deep veins of unspecified lower extremity; Z51.81 Encounter for therapeutic drug level monitoring; Z79.01 Long term (current) use of anticoagulants | CPT/HCPCS: 85610; 99211 ==

== ENCOUNTER 2025-01-21 13:22 | Outpatient (AMB) | payer MEDICARE, SELFPAY ==
[2025-01-21 13:28] LABS: Prothrombin Time Whole Bld POC 42.3 sec (11.1-13.5); ~PT, ~INR - Anti Coag Clinic 3.5 (0.9-1.1)
--- NOTE | 2025-01-21 13:35 | MHC.OFFVISCO ---
Intake Intake Visit Reasons: Anticoagulation Allergies albuterol Adverse Reaction (Intermediate, Verified 01/21/25 13:23) Palpitations amoxicillin (From Augmentin) Adverse Reaction (Intermediate, Verified 01/21/25 13:23) Nausea and Vomiting, dizziness clavulanic acid (From Augmentin) Adverse Reaction (Intermediate, Verified 01/21/25 13:23) Nausea and Vomiting, dizziness Medication List - Last Reconciled 01/21/25 by Lottie Avila RN acetaminophen 1,000 mg PO Q6H PRN acetazolamide 250 mg PO DAILY 30 days MDD RESPIRATORY FAILURE atorvastatin 20 mg PO DAILY diltiazem HCl CD 120 mg PO DAILY docusate sodium 200 mg PO DAILY empagliflozin (Jardiance) 10 mg PO DAILY ferrous sulfate 325 mg PO QAM flecainide 100 mg PO Q12H fluticasone propion-salmeterol 250-50 mcg/dose 1 inh inhalation Q12H furosemide 80 mg (2 x 40 mg) PO DAILY levalbuterol HCl 1.25 mg (0.5 mL) inhalation Q4H levalbuterol tartrate 45 mcg/actuation 2 inhalations PO Q4-6H PRN multivitamin 1 tab PO DAILY potassium chloride ER 10 mEq PO DAILY sennosides (senna) 25.8 mg PO BEDTIME tiotropium bromide 2.5 mcg/actuation (Spiriva Respimat) 2 puffs inhalation DAILY tiotropium bromide 1.25 mcg/actuation (Spiriva Respimat) 2 puffs inhalation DAILY warfarin See Protocol 7.5 mg orally 7.5 X 4 DAYS/ 5MG X 3 DAYS; Nursing Note INR: 3.5?out of therapeutic range of 2-3 Medications and supplements reviewed Patient status: states he is a little SOB at times and may have a flare up pf COPD. Hoarse cough noted. Diet: no change Denies any signs and symptoms of bleeding or clotting or unusual bruising Bleeding, bruising, clotting discussed Nutritional guidance given: to have a serving of greens today. States he will have broccoli. Dose: will keep same dose of 5mg X 5 days and 7.5mg X 2 days (Sat & Wed) F/U INR Date: 02/18/25?? Patient verbalizing understanding of instructions with read back given. 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
--- OUTSIDE RECORDS SUMMARY | 2025-01-21 20:34 | XMS_ITS | Encounter Summary ---
Author Organization [facility] Address [address] [place] [address] Care Team Providers Care Manager Automotive Name Role Phone Evelyn Valdez MD Primary Care Prov ider Encounter Details Date Type Department Care Team ([facility] st Contact Info) Description 12/15/2024 Results Follow-Up Adult [facility] 230 [place] [address] Leonardo Swenson PA 230 [place] [address] Social History Tobacco Use Types Packs/Day Years [...] PM EST Office Visit Orthopedic Surgery - [place] [address] [address] Donny Hughes, DPM 175 [facility] 250 [place] [address] 02/26/2025 3:45 PM EST Office Visit Pulmonology - [place] 175 [facility] 200 [place] [address] Mica Parikh MD 230 [place] [address] 03/11/2025 1:45 PM EST Office Visit [facility] Hematology Oncology [address] [place] [address] Daphne Rodriguez DO 271 [place] [address] 04/13/2025 1:30 PM EST Office Visit Adult Medicine [facility] 230 [place] [address] Leonardo Swenson PA 230 [place] [address] 08/02/2025 3:00 PM EDT Consult Gastroenterology - [address] [place] [address] 299 [facility] 419 [place] [address] Amy Ventura PA 299 [facility] 419 [place] [address] documented as of this encounter Visit Diagnoses Not on filedocumented in this encounter Additional Health Concerns Assessment Noted Time PHQ-9 Depression Total Score: 0 01/06/20 1:14 PM EST A fall risk assessment has been complete d for the patient 01/06/2024 1:11 PM EST documented as of this encounter Care Teams Manager Automotive Relationship Specialty Start Date End Date Evelyn Valdez MD 230 [place] [address] PCP - General Internal Medicine 12/09/18 documented as of this encounter
--- OUTSIDE RECORDS SUMMARY | 2025-01-21 20:34 | XMS_ITS | Encounter Summary ---
Author Organization [facility] Address [address] [place] [address] Care Team Providers Care Licensed Appraiser Name Role Phone Evelyn Valdez MD Primary Care Prov ider Encounter Details Date Type Department Care Team ([facility] st Contact Info) Description 11/16/2024 Results Follow-Up Pulmonology - [place] [address] [facility] [address] [place] [address] Mica Parikh MD 230 [place] [address] Social History Tobacco Use Types Packs/Day Years [...] for your loved ones. For example, children's choir director or elderly care for an older [...] positive. Please bring the patient in for [id number] encounter to initiate new CPAP. Okay to overbook in the upcoming month. documented in this encounter Plan of Treatment Upcoming Encounters Date Type Department Care Team (Late st Contact Info) Description 02/17/2025 1:30 PM EST Office Visit Orthopedic Surgery - [place] 250 175 [facility] 250 [place] [address] Donny Hughes DPM 175 [facility] 250 [place] [address] 02/26/2025 3:45 PM EST Office Visit Pulmonology - [place] 175 [facility] 200 [place] [address] Mica Parikh MD 230 [place] [address] 03/11/2025 1:45 PM EST Office Visit [facility] Hematology Oncology [address] [place] [address] Daphne Rodriguez DO 271 [place] [address] 04/13/2025 1:30 PM EST Office Visit Adult Medicine - [place] 230 [place] [address] Leonardo Swenson PA 230 [place] [address] 08/02/2025 3:00 PM EDT Consult Gastroenterology - [address] [facility] 299 [facility] 419 [place] [address] Amy Ventura PA 299 [facility] 419 [place] [address] documented as of this encounter Visit Diagnoses Not on filedocumented in this encounter Additional Health Concerns Assessment Noted Time PHQ-9 Depression Total Score: 0 01/06/20 1:14 PM EST A fall risk assessment has been complete d for the patient 01/06/2024 1:11 PM EST documented as of this encounter Care Teams Licensed Appraiser Relationship Specialty Start Date End Date Evelyn Valdez MD [address] [place] [address] PCP - General Internal Medicine 12/09/18 documented as of this encounter
--- OUTSIDE RECORDS SUMMARY | 2025-01-21 20:34 | XMS_ITS | Encounter Summary ---
Author Organization [facility] Address [address] [place] [address] Care Team Providers Care Nurseryman Assistant Name Role Phone Evelyn Valdez MD Primary Care Prov ider Encounter Details Date Type Department Care Team ([facility] st Contact Info) Description 12/14/2024 Results Follow-Up Adult [facility] 230 [place] [address] Leonardo Swenson PA 230 [place] [address] Social History Tobacco Use Types Packs/Day Years [...] your loved ones. For example, early childhood aide classroom or elderly care for an older adult? [...] PM EST Office Visit Orthopedic Surgery - [place] [address] [address] Donny Hughes, DPM 175 [facility] 250 [place] [address] 02/26/2025 3:45 PM EST Office Visit Pulmonology - [place] 175 [facility] 200 [place] [address] Mica Parikh MD 230 [place] [address] 03/11/2025 1:45 PM EST Office Visit [facility] Hematology Oncology 271 [place] [address] Daphne Rodriguez DO 271 [place] [address] 04/13/2025 1:30 PM EST Office Visit Adult Medicine [facility] 230 [place] [address] Leonardo Swenson PA 230 [place] [address] 08/02/2025 3:00 PM EDT Consult Gastroenterology - [address] [place] [address] 299 [facility] 419 [place] [address] Amy Ventura PA 299 [facility] 419 [place] [address] documented as of this encounter Visit Diagnoses Not on filedocumented in this encounter Additional Health Concerns Assessment Noted Time PHQ-9 Depression Total Score: 0 01/06/20 1:14 PM EST A fall risk assessment has been complete d for the patient 01/06/2024 1:11 PM EST documented as of this encounter Care Teams Nurseryman Assistant Relationship Specialty Start Date End Date Evelyn Valdez MD 230 [place] [address] PCP - General Internal Medicine 12/09/18 documented as of this encounter
--- OUTSIDE RECORDS SUMMARY | 2025-01-21 20:34 | XMS_ITS | Encounter Summary ---
Author Organization [facility] Address [address] [place] [address] Care Team Providers Care E Commerce Retailer Name Role Phone Evelyn Valdez MD Primary Care Prov ider Reason for Visit * Reason Onset Date Comments Medication Problem 01/18/2025 Encounter Details Date Type Department Care Team ([facility] st Contact Info) Description 01/18/2025 Telephone Pulmonology - [place] [address] [facility] [address] [place] [address] Mica Parikh MD 230 [place] [phone] Social History Tobacco Use Types Packs/Day Years [...] ed Within the last 3 months, ho santiago many times did you visit the emergency [...] for your loved ones. For example, child watch attendant or elderly care for an older adult? [...] as of this encounter Progress Notes * Tia Cordova - 01/18/2025 2:52 PM EST Refill: AZITHROMYCIN TAB JOSE: 11/23/2024 NOV: 02/26/2025 documented in this encounter Plan of Treatment Upcoming Encounters Date Type Department Care Team ([facility] st Contact Info) Description 02/17/2025 1:30 PM EST Office Visit Orthopedic Surgery - [place] 250 175 [facility] 250 [place] [address] Donny Hughes, DPM 175 [facility] 250 [place] [address] 02/26/2025 3:45 PM EST Office Visit Pulmonology - [place] 175 [facility] 200 [place] [address] Mica Parikh MD 230 [place] [address] 03/11/2025 1:45 PM EST Office Visit [facility] Hematology Oncology 271 [place] [address] Daphne Rodriguez DO 271 [place] [address] 04/13/2025 1:30 PM EST Office Visit Adult Medicine - [place] 230 [place] [address] Leonardo Swenson PA 230 [place] [address] 08/02/2025 3:00 PM EDT Consult Gastroenterology - 299 [facility] 299 [facility] 419 [place] [address] Amy Ventura PA 299 [facility] 419 [place] [address] documented as of this encounter Visit Diagnoses Not on filedocumented in this encounter Additional Health Concerns Assessment Noted Time PHQ-9 Depression Total Score: 0 01/06/20 1:14 PM EST A fall risk assessment has been complete d for the patient 01/06/2024 1:11 PM EST documented as of this encounter Care Teams E Commerce Retailer Relationship Specialty Start Date End Date Evelyn Valdez MD [address] [place] [address] PCP - General Internal Medicine 12/09/18 documented as of this encounter
--- OUTSIDE RECORDS SUMMARY | 2025-01-21 20:34 | XMS_ITS | Encounter Summary ---
Author Organization [facility] Address [address] [place] [address] Care Team Providers Care Screen Making Supervisor Name Role Phone Evelyn Valdez MD Primary Care Prov ider Reason for Visit * Reason Onset Date Comments FYI for Provider 12/16/2024 Encounter Details Date Type Department Care Team ([facility] st Contact Info) Description 12/16/2024 Telephone Adult Medicine - [place] 230 [place] [address] Evelyn Valdez MD 230 [place], [place] [phone] Social History Tobacco Use Types Packs/Day Years [...] your loved ones. For example, child care associate or elderly care for an older [...] PM EST Office Visit Orthopedic Surgery - [place] 250 175 [facility] 250 [place] [address] Donny Hughes DPOleg 175 [facility] 250 [place] [address] 02/26/2025 3:45 PM EST Office Visit Pulmonology - [place] 175 [facility] 200 [place] [address] Mica Parikh MD 230 [place] [address] 03/11/2025 1:45 PM EST Office Visit [facility] Hematology Oncology 271 [place] [address] Daphne Rodriguez, 271 [place] [address] 04/13/2025 1:30 PM EST Office Visit Adult Medicine [facility] 230 [place] [address] Leonardo Swenson PA 230 [place] [address] 08/02/2025 3:00 PM EDT Consult Gastroenterology - 299 [facility] 299 [facility] 419 [place] [address] Amy Ventura PA 299 [facility] 419 [place] [address] documented as of this encounter Visit Diagnoses Not on filedocumented in this encounter Additional Health Concerns Assessment Noted Time PHQ-9 Depression Total Score: 0 01/06/20 1:14 PM EST A fall risk assessment has been complete d for the patient 01/06/2024 1:11 PM EST documented as of this encounter Care Teams Screen Making Supervisor Relationship Specialty Start Date End Date Evelyn Valdez MD [address] [place] [address] PCP - General Internal Medicine 12/09/18 documented as of this encounter
--- OUTSIDE RECORDS SUMMARY | 2025-01-21 20:34 | XMS_ITS | Clinical Summary ---
Author Organization [facility] [address] [facility] lding Address [address] [place] [address] Phone Care Team Providers Care Electrical Cad Technician Name Role Phone Evelyn Valdez MD [...] (DIAMOX) 250 mg tablet 03/16/19 25 Active atorvastatin (LIPITOR) 20 mg tablet TAKE [...] for wheezing. 15 g 11 12/18/19 25 Active azithromycin (ZITHROMAX) 250 mg tablet Take 1 tablet (250 mg total) by mouth See administration instructions. Sat,wed,Saturday per pulm 24 each 1 01/19/20 25 026 Active azithromycin (ZITHROMAX) 250 mg tablet Take 1 tablet (250 mg total) by mouth 1 (one) time each day. Sat,sat,Saturday per pulm 025 Discontinu ed(Reorder ) predniSONE (DELTASONE) 20 mg tablet Take 3 tabs (60mg) daily for 3 days, then take 2 tabs (40mg) daily for 3 days, then take 1 tab (20mg) daily for 3 days. 18 tablet 12/15/19 25 025 Active Problems Problem Noted Date Diagnosed Date Oxygen dependent 08/11/2024 History of pneumonia 08/11/2024 Chronic deep vein thrombosis (DVT) of lower extr emity 11/07/2023 Overview (11/07/2023): Recurrent Diastolic heart failure 07/06/2021 Overview (11/07/2023): Dr. Nava. Grade 1 diastolic dysfunction clinically euvolemic and well compensated Diastolic dysfunction, left ventricle 06/30/2021 Overview (11/07/2023): 06/30/2021 Dr. Nava [place] [facility]. No clinical signs central venous congestion. [...] Encounters Date Type Department Care Team Description 01/18/2025 Telephone Pulmonology - [place] [address] [facility] [address] [place] [address] Mica Parikh MD 01/12/2025 Telephone Pulmonology - [place] [address] [facility] [address] [place] [address] Mica Parikh MD 12/16/[address] [phone] Evelyn Valdez MD 12/15/2024 Results Follow-Up [address] [phone] Leonardo Swenson PA 12/14/2024 2:45 PM EST - 12/14/2024 11:59 PM EST Hospital Encounter [facility] [address] [place] [address] Pain and swelling of left elbow Discharge Disposition: Home or Self Care 12/14/2024 11:55 AM EST Lab Draw Station [address] Pain and swelling of left elbow; Arthralgia, unspecified joint 12/14/2024 11:15 AM EST Office Visit [address] [phone] Leonardo Swenson PA DEREK and COPD overlap syndrome (CMS/HCC V24, CMS/HCC V28) (Primary Dx); Chronic bronchitis, unspecified chronic bronchitis type (CMS/HCC V24, CMS/HCC V28); Oxygen dependent; Paroxysmal atrial fibrillation (CMS/HCC V24, CMS/HCC V28); Ischemic cardiomyopathy; Primary hypertension; Anemia, unspecified type; Vascular disease; Pain and swelling of left elbow; Arthralgia, unspecified joint 12/14/2024 Results Follow-Up [address] [phone] Leonardo Swenson PA 12/02/2024 Telephone Pulmonology [address] [phone] Dia Urrutia [place] 11/23/2024 2:00 PM EDT Office Visit Pulmonology [address] [phone] Mica Parikh MD DEREK on CPAP (Primary Dx); COPD with asthma (CMS/HCC V24, CMS/HCC V28); Bronchiectasis without acute exacerbation (CMS/HCC V24, [facility] V28); Ex-smoker; Family history of lung cancer 11/18/2024 1:00 PM EDT Office Visit Orthopedic Surgery - [place] [address] [facility] [address] [place] [phone] Donny Hughes DPM Arthritis of both ankles (Primary Dx); Dermatophytosis of nail; Peripheral venous insufficiency 11/18/2024 Telephone [facility] Hematology Oncology [address] [place] [phone] Daphne Rodriguez DO 11/17/2024 1:00 PM EDT Office Visit [facility] Hematology Oncology [address] [place] [phone] Daphne Rodriguez DO Mild anemia (Primary Dx); Other shelter (current) drug therapy 11/16/2024 Results Follow-Up Pulmonology - [place] [address] [facility] [address] [place] [phone] Mica Parikh MD 11/12/2024 Telephone Adult Medicine [facility] [address] [place] [phone] Evelyn Valdez MD 10/22/2024 Telephone Pulmonology [facility] [address] [facility] [address] [place] [phone] Mica Parikh MD from Last 3 Months Immunizations Immunization Administration [...] COMMENT: Non obstructive CAD-mild disease APPENDECTOMY PROCEDURE: [place] APPENDECTOMY OTHER SURGICAL HISTORY 09/28/2021 Right PROCEDURE: [place] ENDOVEN ABLTJ INCMPTNT VEIN XTR LASER 1ST [...] hemidiaphragm COPD (chronic obstructive pu lmonary disease) ([facility] V24, [facility] V28) 12/12/2018 DX:COPD [...] Metabolic syndrome 11/03/2010 DX:Metabolic syndrome Pulmonary embolism ([facility]/HCC V24, [facility] V28) 09/22/2010 DX:Pulmonary embolism (HCC); COMMENT: [...] your loved ones. For example, early childhood services coordinator or elderly care for an older [...] file Not on file Not on file Last Filed Vital Signs Vital Sign Reading [...] PM EST Office Visit Orthopedic Surgery - [place] [address] [facility] [address] [place] [phone] Donny Hughes DPOleg 175 [facility] [address] [place] [phone] 02/26/2025 3:45 PM EST Office Visit Pulmonology - [place] [address] [facility] [address] [place] [phone] Mica Parikh MD [address] [place] [phone] 03/11/2025 1:45 PM EST Office Visit [facility] Hematology Oncology [address] [place] [phone] Daphne Rodriguez DO [address] [place] [address] 04/13/2025 1:30 PM EST Office Visit Adult Medicine - [place] [address] [place] [phone] Leonardo Swenson PA [address] [place] [address] 08/02/2025 3:00 PM EDT Consult Gastroenterology - 299 [facility] 299 [facility] [address] [place] [phone] Amy Ventura PA [address] [address] Health Maintenance Due Date Last Done Comments [...] 11/17/2024 1:39 PM EDT Mild anemia Other shelter (current) drug therapy VITAMIN B12 AND FOLATE [...] 11/03/2024 2:44 PM EDT DEREK on CPAP CREATININE, SERUM Routine 05/22/2024 2:1 1 PM [...] Signed Date: 12/14/2024 15:04 ET Workstation ID: [id number] Transcribed By: Self Edit Transcribed Date: 12/14/2024 [...] Signed Date: 12/14/2024 15:04 ET Workstation ID: [id number] Transcribed By: Self Edit Transcribed Date: 12/14/2024 14:59 ET us Leonardo WING IMG XR PROCEDURES Final Result * Borrelia burgdorferi antibody (12/14/2024 11:52 AM EST) Pathologist [facility] Lyme Ab Negative Negative LAB CHEMISTRY METHOD 12/15/2024 9:30 AM EST [facility] Comment: No laboratory evidence of infection with B. burgdorferi (Lyme disease). Negative results may occur in patients recently infected (<=14 days) with B. burgdorferi. If recent infection is suspected, repeat testing on a new sample collected in 7- 14 days is recommended. Blood Venous blood specimen / Unknown Venipuncture / Unknown 12/14/2024 11:52 AM EST 12/14/2024 11:52 AM EST us Leonardo WING LAB BLOOD ORDERABLES Final Res ult Performing Organization Address City/[facility]/ZIP Co de Phone Number [facility] [address] [place] [address], [place] [phone] * Uric acid (12/14/2024 11:52 AM EST) [facility] Uric Acid 3.9 3.7 - 9.2 mg/dL LAB CHEMISTRY METHOD 12/14/2024 4:08 PM EST [facility] Blood Venous blood specimen / Unknown Venipuncture / Unknown 12/14/2024 11:52 AM EST 12/14/2024 11:52 AM EST us Leonardo WING LAB BLOOD ORDERABLES Final Res ult [facility] [address] [place] [address], [place] [phone] * Thyroid stimulating hormone with reflex to free t4 and free t3 (11/19/2024 1:53 PM EDT) [facility] TSH 2.71 0.40 - 4.00 mcIU/mL LAB CHEMISTRY METHOD 11/19/2024 6:13 PM EDT [facility] Blood Venous blood specimen / Unknown Venipuncture / Unknown 11/19/2024 1:53 PM EDT 11/19/2024 1:53 PM EDT Mica Parikh MD LAB BLOOD ORDERABLES Final Resul t Performing Organization Address [facility] Co de Phone Number [facility] [address] [place] [address], [place] [phone] * (ABNORMAL) Vitamin B12 and folate (11/17/2024 1:39 PM EDT) [facility] Vitamin B-12 599 250 - 900 pcg/mL LAB CHEMISTRY METHOD 11/17/2024 5:46 PM EDT [facility] Folate >20.0(H) 2.8 - 17.0 ng/ml LAB CHEMISTRY METHOD 11/17/2024 5:46 PM EDT [facility] Blood Venous blood specimen / Unknown Venipuncture / Unknown 11/17/2024 1:39 PM EDT 11/17/2024 4:32 PM EDT Daphne Rodriguez DO LAB BLOOD ORDERABLES Final Result Performing Organization Address [facility]/ZIP Co de Phone Number [facility] [address] [place] [address], [place] [phone] * (ABNORMAL) CBC auto differential (11/17/2024 1:39 PM EDT) [facility] WBC 7.4 4.8 - 10.8 K/[facility] LAB HEMETOLOGY METHOD 11/17/2024 5:40 PM EDT [facility] RBC 4.80 4.50 - 5.50 M/[facility] LAB HEMETOLOGY METHOD 11/17/2024 5:40 PM EDT [facility] Hemoglobin 13.4(L) 13.5 - 17.5 g/dL LAB HEMETOLOGY METHOD 11/17/2024 5:40 PM EDT [facility] Hematocrit 44.1 42.0 - 54.0 % LAB HEMETOLOGY METHOD 11/17/2024 5:40 PM EDT [facility] MCV 91.5 79.0 - 98.0 FL LAB HEMETOLOGY METHOD 11/17/2024 5:40 PM EDT [facility] MCH 27.8 27.0 - 32.0 pcg LAB HEMETOLOGY METHOD 11/17/2024 5:40 PM EDT [facility] MCHC 30.4(L) 32.0 - 37.0 g/dL LAB HEMETOLOGY METHOD 11/17[facility]2024 [facility] RDW 15.9(H) 11.0 - 15.0 % LAB HEMETOLOGY METHOD 11/17/2024 5:40 PM EDT [facility] Platelets 147 130 - 400 K/mcL LAB HEMETOLOGY METHOD 11/17/2024 5:40 PM EDT [facility] MPV 10.5 7.0 - 11.0 FL LAB HEMETOLOGY METHOD 11/17/2024 5:[facility] NRBC 0.0 <1.0 % LAB HEMETOLOGY METHOD 11/17/2024 5:40 PM EDT [facility] NRBC Absolute 0.00 <0.10 K/mcL LAB HEMETOLOGY METHOD 11/17/2024 5:40 PM EDT [facility] Neutrophils Relative 57.1 % LAB HEMETOLOGY METHOD 11/17/2024 5:40 PM EDT [facility] Comment:This is an appended report. These results have been appended to a previously preliminary verified report. Lymphocytes Relative 15.1 % LAB HEMETOLOGY METHOD 11/17/2024 5:40 PM EDT [facility] Comment:This is an appended report. These results have been appended to a previously preliminary verified report. Monocytes Relative 25.5 % LAB HEMETOLOGY METHOD 11/17/2024 5:40 PM [facility] Comment:This is an appended report. These results have been appended to a previously preliminary verified report. Eosinophils Relative 1.8 % LAB HEMETOLOGY METHOD 11/17/2024 5:40 PM [facility] Comment:This is an appended report. These results have been appended to a previously preliminary verified report. Basophils Relative 0.4 % LAB HEMETOLOGY METHOD 11/17/2024 5:40 PM [facility] Comment:This is an appended report. These results have been appended to a previously preliminary verified report. Immature Granulocytes Relative 0.1 % LAB HEMETOLOGY METHOD 11/17/2024 5:40 PM [facility] Comment:This is an appended report. These results have been appended to a previously preliminary verified report. Neutrophils Absolute 4.23 1.50 - 7.00 K/mcL LAB HEMETOLOGY METHOD 11/17/2024 5:40 PM [facility] Comment:This is an appended report. These results have been appended to a previously preliminary verified report. Lymphocytes Absolute 1.12 1.00 - 5.00 K/mcL LAB HEMETOLOGY METHOD 11/17/2024 5:40 PM T [facility] Comment:This is an appended report. These results have been appended to a previously preliminary verified report. Monocytes Absolute 1.89(H) 0.20 - 1.00 K/mcL LAB HEMETOLOGY METHOD 11/17/2024 5:40 PM [facility] Comment:This is an appended report. These results have been appended to a previously preliminary verified report. Eosinophils Absolute 0.13 0.00 - 0.50 K/mcL LAB HEMETOLOGY METHOD 11/17/2024 5:40 PM EDT [facility] Comment:This is an appended report. These results have been appended to a previously preliminary verified report. Basophils Absolute 0.03 0.00 - 0.20 K/mcL LAB HEMETOLOGY METHOD 11/17/2024 5:40 PM EDT [facility] Comment:This is an appended report. These results have been appended to a previously preliminary verified report. Immature Granulocytes Absolute 0.01 0.00 - 0.03 K/mcL LAB HEMETOLOGY METHOD 11/17/2024 5:40 PM EDT [facility] Comment:This is an appended report. These results have been appended to a previously preliminary verified report. Blood Venous blood specimen / Unknown Venipuncture / Unknown 11/17/2024 1:39 PM EDT 11/17/2024 4:32 PM EDT Daphne Rodriguez DO LAB BLOOD ORDERABLES Final Result [facility] [address] [place] [address], * (ABNORMAL) Iron and TIBC (11/17/2024 1:39 PM EDT) Iron 33(L) 50 - 160 mcg/dL LAB CHEMISTRY METHOD 11/17/2024 5:46 PM EDT [facility] TIBC 329 250 - 450 mcg/dL LAB CHEMISTRY METHOD 11/17/2024 5:46 PM EDT [facility] Iron Saturation 10(L) 20 - 50 % LAB CHEMISTRY METHOD 11/17/2024 5:46 PM EDT [facility] Blood Venous blood specimen / Unknown Venipuncture / Unknown 11/17/2024 1:39 PM EDT 11/17/2024 4:32 PM EDT Daphne Humaira Michael DO LAB BLOOD ORDERABLES Final Result Performing Organization Address [facility]/ZIP Co de Phone Number [facility] [address] [place] [address], [place] [phone] * Vitamin D 25 hydroxy (11/17/2024 1:39 PM EDT) Pathologist [facility] Vit D, 25-Hydroxy 37.2 30.0 - 80.0 ng/mL LAB CHEMISTRY METHOD 11/17/2024 6:35 PM EDT [facility] Blood Venous blood specimen / Unknown Venipuncture / Unknown 11/17/2024 1:39 PM EDT 11/17/2024 4:32 PM EDT Daphne Rodriguez DO LAB BLOOD ORDERABLES Final Result Performing Organization Address [facility] Co de Phone Number [facility] [address] [place] [address], [place] [phone] * Lactate dehydrogenase (11/17/2024 1:39 PM EDT) Pathologist [facility] LDH 163 120 - 246 unit/L LAB CHEMISTRY METHOD 11/17/2024 5:21 PM EDT [facility] Blood Venous blood specimen / Unknown Venipuncture / Unknown 11/17/2024 1:39 PM EDT 11/17/2024 4:32 PM EDT Daphne Rodriguez DO LAB BLOOD ORDERABLES Final Result Performing Organization Address City/[facility]/ZIP Co de Phone Number [facility] [address] [place] [address], [place] [phone] * Haptoglobin (11/17/2024 1:39 PM EDT) [facility] Haptoglobin 153 16 - 200 mg/dL LAB CHEMISTRY METHOD 11/17/2024 5:21 PM EDT [facility] Blood Venous blood specimen / Unknown Venipuncture / Unknown 11/17/2024 1:39 PM EDT 11/17/2024 4:32 PM EDT Daphne Santanauliffe DO LAB BLOOD ORDERABLES Final Result [facility] [address] [place] [address], [place] [phone] * Ferritin (11/17/2024 1:39 PM EDT) Pathologist [facility] Ferritin 31 26 - 388 ng/mL LAB CHEMISTRY METHOD 11/17/2024 5:46 PM EDT [facility] Blood Venous blood specimen / Unknown Venipuncture / Unknown 11/17/2024 1:39 PM EDT 11/17/2024 4:32 PM EDT Daphne Humaira Michael DO LAB BLOOD ORDERABLES Final Result Performing Organization Address City/[facility]/ZIP Co de Phone Number [facility] [address] [place] [address], [place] [phone] * Home sleep test (11/03/2024 2:44 PM EDT) Mica Pairkh MD [facility]EP CENTER ORDERABLES Final Re sult * Creatinine (05/22/2024 2:11 PM EDT) Creatinine 0.84 0.70 - 1.30 mg/dL LAB CHEMISTRY METHOD 05/22/2024 4:35 PM EDT [facility] eGFR 90 >=60 mL/min/1. 73m2 LAB CHEMISTRY METHOD 05/22/2024 4:35 PM EDT [facility] Comment:Calculation based on the Chronic Kidney Disease Epidemiology Collaboration (CKD-EPI) equation refit without adjustment for race. Blood Venous blood specimen / Unknown Venipuncture / Unknown 05/22/2024 2:11 PM EDT 05/22/2024 2:11 PM EDT Garo Florez MD LAB BLOOD ORDERABLES Final Resul t [facility] [address] [place] [address], [place] [phone] * Lipid panel (03/30/2020) LDL/HDL Ratio 3 [...] of Phone Billing Address Personal/Family Self 1945 [phone] (Work) [address] [place] [address] [employer] Care Teams Electrical Cad Technician Relationship Specialty Start Date End Date Evelyn Valdez MD [address] [place] [id number] PCP - General Internal Medicine 12/09/18
== END 2025-01-21 13:44 | disposition home or self-care (01) ==
LOC: HO.ACS 13:22
PROVIDERS: PCP Internal Medicine; Visit Provider Internal Medicine Medical Oncology
DX: Z79.01 Long term (current) use of anticoagulants (principal)

== ENCOUNTER → 2025-01-21 13:22 | Outpatient (BNVA) | payer MEDICARE, SELFPAY | PROVIDERS: PCP Internal Medicine; Visit Provider Internal Medicine Medical Oncology | DX: Z79.01 Long term (current) use of anticoagulants (principal) | CPT/HCPCS: 85610; 99211 ==